=== PATIENT | male | born 1970 | race Caucasian/White ===

== ENCOUNTER 2023-03-04 01:20 | Inpatient (IN) | payer OTHER, SELFPAY ==
[2023-03-04] VITALS (25 sets, daily range): BP systolic 100–129; BP diastolic 57–94; PULSE 59–81; RESP 13–20; TEMP 35.9–36.6; O2SAT 94–100; BMI 30.8
--- NOTE | ~2023-03-04 | US_ITS ---
EXAMINATION:US venous doppler LE BI INDICATION:Positive Homans sign. TECHNIQUE: Multiple grayscale, color flow and Doppler images of the right and left lower extremity de ep venous systems were obtained and reviewed. COMPARISON:No prior studies for comparison. FINDINGS: The common femoral, superficial femoral and popliteal veins demonstrate normal respiratory variation, augmentation and compressibility. Color flow is also seen within the posterior tibial, pe roneal, greater saphenous and profunda veins. IMPRESSION: 1: No lower extremity deep venous thrombosis. Reviewed, dictated and finalized at location A.
--- NOTE | ~2023-03-04 | XR_ITS ---
XR chest 2V 03/04/2023 01:59 Indication: Left-sided chest pain Procedure: PA and lateral views of the chest Comparison: 10/27/2015 Findings: Heart size normal. No focal air space disease, pulmonary edema, pleural effusion or suspect ed pneumothorax. No acute osseous abnormality. Impression: 1: No acute cardiopulmonary disease. Reviewed, dictated and finalized at location A. Impression: 1: No acute cardiopulmonary disease.
--- NOTE | 2023-03-04 01:26 | ECG_ITS ---
Measurements Intervals [place] Rate: 78 P: 53 WI: 182 QRS: 29 QRSD: 117 T: -9 QT: 377 QTc: 430 Interpretive Statements SINUS RHYTHM MODERATE INTRAVENTRICULAR CONDUCTION DELAY [110+ ms QRS DURATION] NONSPECIFIC T-WAVE ABNORMALITY NO PREVIOUS ECG AVAILABLE FOR COMPARISON Electronically Signed On 03-04-2023 9:01:40 CDT by Kristi Valdovinos M.D.
[2023-03-04 02:03] LABS: Basophils Percent Auto 0.5 % (0.2-1.2); Eosinophils Absolute Auto 0.1 K/mm3 (0-0.3); Eosinophils Percent Auto 1.4 % (0-4.4); Hematocrit 41.9 % (42.0-52.0); Hemoglobin 14.3 g/dL (14.0-18.0); Immature Granulocyte Absolute 0.02 K/mm3 (0.00-0.031); Immature Granulocyte Percent A 0.2 % (0-0.5); Lymphocytes Absolute Auto 2.87 K/mm3 (0.9-3.2); Lymphocytes Percent Auto 34.5 % (18.3-44.2); Mean Corpuscular HGB Conc 34.1 g/dl (32-36); Mean Corpuscular Hemoglobin 31.3 pg (26-34); Mean Corpuscular Volume 91.7 fl (80-100); Mean Platelet Volume 9.6 fl (7.4-10.4); Monocytes Absolute Auto 0.9 K/mm3 (0.1-0.6); Monocytes Percent Auto 10.6 % (2.6-8.5); Neutrophils Absolute Auto 4.4 K/mm3 (1.3-6.7); Neutrophils Percent Auto 52.8 % (45.5-73.1); Platelet Count Result 245 k/mm3 (150-375); Red Blood Count 4.57 M/mm3 (4.6-6.20); Red Cell Distribution Width 13.5 % (11.5-14.5); White Blood Count 8.3 K/mm3 (4.5-10.0)
[2023-03-04 02:13] LABS: Prothrombin Time 13.7 Seconds (11.1-14.7)
[2023-03-04 02:14] LABS: Partial Thromboplastin Time 30.9 SECONDS (22.3-36.8)
[2023-03-04 02:19] LABS: Alanine Aminotransferase 31 U/L (6-50); Albumin Level 3.9 g/dL (3.5-5.1); Alkaline Phosphatase 52 U/L (38-126); Anion Gap 4 mmol/L (8-16); Aspartate Amino Transferase 27 U/L (17-59); Bilirubin,Total 0.3 mg/dL (0.2-1.3); Blood Urea Nitrogen 19 mg/dL (9-20); Calcium 8.8 mg/dL (8.4-10.2); Carbon Dioxide 29 mmol/L (22-30); Chloride 106 mmol/L (98-107); Estimated CRCL calculation 97 ml/min; Estimated Glomerular Filt Rate > 60; Glucose 100 mg/dL (65-110); Lipase 98 U/L (23-300); Potassium 3.5 mmol/L (3.4-5.0); Sodium 139 mmol/L (137-145)
--- NOTE | 2023-03-04 02:20 | PC.NURSE ---
This RN asked pt if he was in any pain to assess if this RN was to give nitro or morphine for pain per EDP. Pt stated he was not having pain and did not want to have any morphine or nitroglycerin. EDP notified and stated to still give the aspirin.
[2023-03-04 02:31] LABS: Troponin I < 0.012 ng/mL (0.000-0.034)
[2023-03-04] MEDS: ASPIRIN 81 MG CHEWABLE TABLET 324 MG PO (02:40)
--- NOTE | 2023-03-04 03:23 | ED.GENADULT ---
HPI - General Adult General Chief complaint: Chest Pain Stated complaint: Chest pain 2 nitros Time Seen by Provider: 03/04/23 01:35 History of Present Illness HPI narrative: Patient 52-year-old gentleman who presents the emergency department with chief complaint of chest pain. Patient reports that he has prior history of cardiac disease and had several stents placed about 10 years ago the patient reports that he has had a stress test in the last year that was negative patient reports this evening he woke up from sleep and was having midsternal chest pain that radiated to his left arm and up into his jaw patient states that it felt like a tightness and heaviness and felt similar to whenever he had his stents placed in the past the patient states he took 2 nitroglycerin that did help the discomfort the patient states that now his pain is almost completely resolved Related Data Home Medications Medication Instructions Recorded Confirmed carvedilol 3.125 mg tablet 3.125 mg PO Q12H 01/02/23 ezetimibe 10 mg tablet (Zetia) 10 mg PO DAILY 01/02/23 fenofibrate 50 mg capsule 50 mg PO DAILY 01/02/23 pregabalin 25 mg capsule (Lyrica) 25 mg PO BID 01/02/23 albuterol 90 mcg/actuation aerosol mcg inhalation 03/04/23 inhaler buprenorphine HCl 150 mcg buccal mcg buccal 03/04/23 film (Belbuca) lisinopril 10 mg tablet mg 03/04/23 Allergies Allergy/AdvReac Type Severity Reaction Status Date / Time cortisone Allergy Severe Anaphylactic Verified 03/04/23 01:30 Shock metronidazole [From Flagyl] Allergy Unknown Verified 03/04/23 01:30 Review of Systems Review of Systems: A 10 system review of systems was completed on the patient and is negative except for what is stated in the HPI. Nursing and ancillary documentation was reviewed. [facility] Family History Family History Mother Asthma Sibling Cancer Sibling Cancer Social History Social History Smoking status: Former smoker Smoking end date: 09/25/14 Alcohol intake: never Lack of Transportation: No Lack of Food: Never True Current Housing: I Have Housing Concerned About Future Housing: No Difficulty Paying Gas/Electric Bills: No Difficulty Paying for Meds: No Currently Unemployed: No Education: High School Diploma/GED Difficulty w/ Childcare or Family Care: No Exam Narrative: GENERAL: Well-appearing, well-nourished, and in no acute distress. HEAD: Normocephalic, atraumatic. EYES: PERRLA and EOMI. ENT: Nares clear, no rhinorrhea or epistaxis. Mucous membranes moist. NECK: Supple. CHEST: Clear to auscultation. No respiratory distress. HEART: Regular rate and rhythm. No murmur heard. Normal peripheral pulses. ABDOMEN: Soft, nontender, nondistended, normal active bowel sounds. EXTREMITIES: Normal range of motion. No edema. SKIN: Warm, dry, no rash. NEURO: No focal deficits. Alert and oriented x3. PSYCH: Normal mood and affect. Course Vital Signs Vital signs: Vital Signs Temperature 36.4 C L 03/04/23 01:26 Pulse Rate 79 03/04/23 01:26 Respiratory Rate 14 03/04/23 01:26 Blood Pressure 129/82 03/04/23 01:26 Pulse Oximetry 95 03/04/23 01:26 Oxygen Delivery Room Air 03/04/23 01:26 Temperature 36.4 C L 03/04/23 01:26 Pulse Rate 79 03/04/23 01:26 Respiratory Rate 14 03/04/23 01:26 Blood Pressure 129/82 03/04/23 01:26 Pulse Oximetry 95 03/04/23 01:26 Oxygen Delivery Room Air 03/04/23 01:26 Medical Decision Making [facility] Narrative Medical decision making narrative: Differential diagnosis includes ACS, unstable angina, stable angina. Pneumothorax, Chest x-ray showed no widened mediastinum and no evidence of pneumothorax EKG showed sinus rhythm rate of [address] elevation or ST depression there is nonspecific T wave abnormalities Laboratory studies were obtain
[2023-03-04 04:55] LABS: Troponin I 0.043 ng/mL (0.000-0.034)
[2023-03-04] MEDS: HEPARIN SODIUM 5,000 UNITS/ML VIAL 4000 UNITS IV PUSH ×2 (05:39→14:15)
[2023-03-04 05:49] LABS: Basophils Percent Auto 0.4 % (0.2-1.2); Eosinophils Absolute Auto 0.1 K/mm3 (0-0.3); Eosinophils Percent Auto 1.6 % (0-4.4); Hematocrit 42.8 % (42.0-52.0); Hemoglobin 14.4 g/dL (14.0-18.0); Immature Granulocyte Absolute 0.03 K/mm3 (0.00-0.031); Immature Granulocyte Percent A 0.4 % (0-0.5); Lymphocytes Absolute Auto 3.03 K/mm3 (0.9-3.2); Lymphocytes Percent Auto 36.6 % (18.3-44.2); Mean Corpuscular HGB Conc 33.6 g/dl (32-36); Mean Corpuscular Hemoglobin 31.2 pg (26-34); Mean Corpuscular Volume 92.8 fl (80-100); Mean Platelet Volume 9.3 fl (7.4-10.4); Monocytes Absolute Auto 0.6 K/mm3 (0.1-0.6); Monocytes Percent Auto 7.1 % (2.6-8.5); Neutrophils Absolute Auto 4.5 K/mm3 (1.3-6.7); Neutrophils Percent Auto 53.9 % (45.5-73.1); Platelet Count Result 263 k/mm3 (150-375); Red Blood Count 4.61 M/mm3 (4.6-6.20); Red Cell Distribution Width 13.5 % (11.5-14.5); White Blood Count 8.3 K/mm3 (4.5-10.0)
[2023-03-04] MEDS: HEPARIN SOD/D5W 100 UNITS/ML 25,000 UNITS/250 ML BAG 10 UNITS IV CONT (05:55)
[2023-03-04 05:57] LABS: Prothrombin Time 13.7 Seconds (11.1-14.7)
[2023-03-04 05:58] LABS: Partial Thromboplastin Time 30.8 SECONDS (22.3-36.8)
--- NOTE | 2023-03-04 06:17 | ADMIMU ---
This patient, Scott Sanchez, was admitted to IMU status, and placed in IMU Room 209-01. Patient/family oriented to hospital policies and general routines including ID bracelet, bed and alarms, visiting hours, pain management, procedures, bathroom and other care routines, personal items, smoking policy, room service/diet, and visiting hours. Valuables list has been completed. Information on how to activate the Rapid Response Team has been discussed. Patient/Family are encouraged to report perceived risks to care and to ask questions if they do not understand what they are told or what they should do.
--- NOTE | 2023-03-04 07:02 | ADMGEN ---
This patient, Scott Sanchez, was admitted to IMU Room 209-01 at 0616. Patient/family oriented to hospital policies and general routines including ID bracelet, bed and alarms, visiting hours, pain management, procedures, bathroom and other care routines, personal items, smoking policy, room service/diet, and visiting hours. Information on how to activate the Rapid Response Team has been discussed. Patient/Family are encouraged to report perceived risks to care and to ask questions if they do not understand what they are told or what they should do.
--- NOTE | 2023-03-04 07:39 | PM.IMHP ---
H&P: HPI History of Present Illness Date/Time: 03/04/23 07:39 Chief Complaint: Chest pain Narrative: 52yo male with CAD here for complaints of chest pain. In December 2014, patient had a late presentation of left sided chest pain radiating down left arm and was found to have a posterior wall PA. 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 He underwent PCI/balloon angioplasty and stenting of ostial/proximal LCX and OM1 branch using 2 JAYCOB. He returned 2 days later in staged intervention and had a RCA (near the ostial segment) JAYCOB placed. Both procedures with excellent angiographic results. Since that time, he has not had any further cardiac issues. He remains on ASA, Coreg, fenofibrate and zetia. He no longer sees Stopperer Assembler. Last chemical stress test was normal one year ago. He can not take statins due to muscle cramping. He was doing well until over the past year and more frequent over the past 1-2 months with chest pain. He has noted increase in frequency but not severity until this presentation. Pain occurs at rest. He was awoken from sleep this morning with 'crushing feeling' in his chest that radiated down the left arm associated with SOB and nausea. No diaphoresis. Symptoms lasted about 1 hour. He took 2 NTG and went by private vehicle to the ED. The pain was almost completely resolved by the time he arrived. The chest pain is similar in quality over the past 1-2 months but much more severe this morning. He has a chronic morning cough related to his COPD. He quit smoking 7 years ago after 20 packyear smoking history. He has HTN and HLD. His A1c is mildly elevated but not high enough to be diagnosed with DM. +Family hx with father having fatal PA at 57yo. Does mention that he has recent complaints of abdominal pain and constipation related to diverticulitis for the past week. Has never had colonoscopy. He is not on antibiotics. No fever or chills. Review of systems otherwise was negative except he has chronic tingling in his feet related to his chronic back issues. No hx of Kay's Palsy of stroke. In the ED, he was hemodynamically stable. His EKG reviewed personally showing normal sinus rhythm and nonspecific T wave changes. CXR was clear. Labs were unrevealing. Troponin climbed to 0.098. He was given ASA and started on heparin drip. 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 He quit tobacco 7 years ago after smoking 1 pack per day for 20 years. He drinks on average about 1 alcoholic drink per month. He uses medical marijuana about 10 mg at night. No history of drug use or IV drug use. Lives at home with his and 2 adult children. He is a full code. H
--- NOTE | 2023-03-04 07:56 | ECG_ITS ---
Measurements Intervals [place] Rate: 69 P: 50 CT: 189 QRS: 33 QRSD: 118 T: -32 QT: 379 QTc: 407 Interpretive Statements SINUS RHYTHM NONSPECIFIC T-WAVE ABNORMALITY COMPARED TO ECG 03/04/2023 01:27:58 NO SIGNIFICANT CHANGES Electronically Signed On 03-04-2023 14:06:18 CDT by Kristi Valdovinos M.D.
--- NOTE | 2023-03-04 07:58 | ECHO_ITS ---
Patient Info Name: Scott Sanchez Age: 52 years : 1970 Gender: Male Ht: 70 in Wt: 212 lbs BSA: 2.20 m2 HR: 81 bpm BP: 118 / 80 mmHg Heart Rhythm: Indeterminant Technical Quality: Fair Exam Date: 03/04/2023 12:00 PM Exam Location: [facility] Patient Status: Inpatient Admit Date: 03/04/2023 Staff Ordering Physician: Kristi Valdovinos MD Varnish Cooker: Amira Quijano RDCS Attending Provider: Kamila Graham DO Referring Physician: Aruna BRAVO; Exam Type: CA echo doppler color flow Study Info Indications - new fib Complete two-dimensional, color flow and Doppler transthoracic echocardiogram is performed. Summary 1. Complete two-dimensional, color flow and Doppler transthoracic echocardiogram is performed. 2. Left ventricle is not well visualized. Grossly normal size and thickness. Left ventricular function is mildly impaired, ejection fraction estimate 45-50%. Probable hypokinesis of the mid and distal posterolateral andrews. Grade 2 diastolic dysfunction is present. 3. Left atrial chamber dimension is moderately enlarged. 4. There is mild aortic root atherosclerosis. 5. No significant valve disease. 6. Pulmonary pressure could not be evaluated by this study. 7. Normal sinus rhythm. 8. Technically difficult study. Left Ventricle Left ventricular chamber dimension is normal. Left ventricular systolic function is mildly reduced, estimated at 45-50%. There is no increased left ventricular wall thickness. Left ventricular septal wall motion is normal. The left ventricular diastolic function is grade II diastolic dysfunction. Right Ventricle Right ventricular chamber dimension is normal. Right ventricular systolic function is normal. Left Atria Left atrial chamber dimension is moderately enlarged. Right Atria Right atrial chamber dimension is normal. Aortic Valve The aortic valve is trileaflet. There is no aortic valve sclerosis. There is no aortic valve stenosis. There is no aortic valve regurgitation. Pulmonic Valve The pulmonic valve is normal. There is no pulmonic valve stenosis. There is no pulmonic regurgitation. Mitral Valve The mitral valve has normal leaflets. There is no mitral valve stenosis. There is trace mitral valve regurgitation. Tricuspid Valve The tricuspid valve leaflets are normal. There is no significant tricuspid valve stenosis. There is trace tricuspid valve regurgitation. No pulmonary hypertension, estimated pulmonary arterial systolic pressure is 15 mmHg. Pericardium/Pleural The pericardium appears normal. There is no pericardial effusion. Inferior Vena Cava Normal inferior vena cava with >50% collapse upon inspiration consistent with Empty right atrial pressure, 10 mmHg. Aorta The aortic root size at the sinus of Valsalva is borderline dilated. The prox ascending aorta size is normal. There is mild aortic root atherosclerosis. Left Ventricular Outflow Tract Name Value Normal LVOT 2D LVOT Diameter 2.1 cm LVOT Doppler LVOT Peak Gradient 3 mmHg LVOT Mean Gradient 2 mmHg LVOT VTI 21 cm LVOT VTI/AV VTI Ratio
[2023-03-04 08:13] LABS: Troponin I 0.098 ng/mL (0.000-0.034)
[2023-03-04 08:16] LABS: Cholesterol 130 mg/dL (0-200); HDL Direct 31 mg/dL; Triglycerides 80 mg/dL (<150)
[2023-03-04 08:26] LABS: LDL Cholesterol Direct 86 mg/dL
--- NOTE | 2023-03-04 09:34 | PM.CNCAR ---
Assessment and Plan Assessment and plan (1) ACS (acute coronary syndrome): Code(s): I24.9 - Acute ischemic heart disease, unspecified Status: Acute Assessment and Plan: Patient with a history of CAD presents with unstable angina and non STEMI, slight elevation of troponins and minimal EKG changes. He has been stable on aspirin and heparin drip since admission. This is a high risk, life threatening diagnosis which is a major threat to health and life. --repeat EKG --echo --continue aspirin, heparin, carvedilol, lisinopril --TNG prn --Cardiac cath on Monday; can do over the w/e if unstable (2) CAD (coronary artery disease): Code(s): I25.10 - Atherosclerotic heart disease of [place] coronary artery without angina pectoris Status: Acute Assessment and Plan: History of CAD and stents. Developed heart disease at a young age, 44 years old, strong family history of CAD. Will need aggressive intervention to assure long life expectancy. --continue ezetimibe and aspirin --check lipids; may benefit from further therapy --continue secondary prevention (3) Hypertension: Code(s): I10 - Essential (primary) hypertension Status: Acute Assessment and Plan: At goal, continue carvedilol, lisinopril (4) Hyperlipidemia: Code(s): E78.5 - Hyperlipidemia, unspecified Status: Acute Assessment and Plan: Taking ezetimibe and fenofibrate. --checking lipids, may benefit from further therapy (5) Statin intolerance: Code(s): Z78.9 - Other specified health status Status: Acute Assessment and Plan: Has taken atorvastatin 40 mg with muscle cramps and tried a couple other statins, statin intolerant. History of Present Illness History of Present Illness Consult date/time: 03/04/23 09:34 Reason For Visit: Chest pain elevated troponin Narrative: Goldie Sanchez is a 52-year-old male whom I was asked to see at the request of Dr. Stewart and Dr. Doyle for my advice and opinion regarding his chest pain and non-STEMI, in consultation. Mr Sanchez has history of posterior STEMI status post 2 stents in the proximal circumflex and OM 1 on 01/12/2015 and staged PCI with a drug-eluting stent to the ostial RCA on 01/14/2015. He was last seen by Dr. Castillo on 03/16/2016 stable. He has a history of hypertension, dyslipidemia and is a former smoker. Borderline diabetes. Statin intolerant; has tried 3 statins with muscle cramping. The patient has had some recurrent anginal-type chest discomfort over the past 2 months, which would come and go, either at rest or with exertion, no provoking factors, reliably resolving with 1 nitroglycerin. He is still able to work out at the gym 2 or 3 times a week and do yd work with no exertional chest discomfort. Last night he woke up with more intense left-sided chest discomfort radiating to the left arm, associated with nausea and some shortness of breath. This felt very similar to his prior SC was not relieved after 2 nitroglycerin so he came to the emergency room. In the emergency room he was placed on aspirin and heparin and has been pain-free since. Review of Systems Constitutional: Constitutional: Denies fever(s) Comments: The patient has had intentional weight loss from 260 down to 212 lb. Eyes: Eyes: Reports blurry vision (Wears glasses) ENT: Reports epistaxis (Infrequent and minor) Cardiovascular: Cardiovascular: Reports chest pain, Reports pedal edema (Minimal and intermittent), Denies lightheadedness and Reports dyspnea (Associated with chest pain this morning) Respiratory: Respiratory: Denies chest congestion and Denies dyspnea Gastrointestinal: Gastrointestinal: Denies abdominal pain and Denies hematochezia Comments: History of diverticulitis Genitourinary: Genitourinary: Denies hematuria Musculoskeletal: Musculoskeletal: Reports no additional musculoskeletal complaints and Reports back pain (History of b
[2023-03-04] MEDS: PREGABALIN (*CRX) 25 MG CAPSULE PO (10:11)
[2023-03-04] MEDS: EZETIMIBE 10 MG TABLET PO (10:11)
[2023-03-04] MEDS: carvediloL 3.125 MG TABLET PO ×2 (10:11→17:52)
[2023-03-04] MEDS: lisinopriL 10 MG TABLET PO (10:12)
[2023-03-04] MEDS: FENOFIBRATE,MICRONIZED 48 MG TABLET PO (10:12)
[2023-03-04 11:56] LABS: Hemoglobin A1C 5.5 % (<5.7)
[2023-03-04 12:13] LABS: Partial Thromboplastin Time 34.9 SECONDS (22.3-36.8)
[2023-03-04 13:13] LABS: D Dimer 0.26 ug/mL (<0.48)
[2023-03-04] MEDS: HYDROcodone/acetaminophen (*CRX) 5-325 MG TABLET 1 TAB PO (17:52)
[2023-03-04] MEDS: polyethylene glycoL 3350 17 GM POWD.PACK PO (17:52)
[2023-03-04 20:30] LABS: Partial Thromboplastin Time 86.6 SECONDS (22.3-36.8)
[2023-03-05] VITALS (19 sets, daily range): BP systolic 100–134; BP diastolic 64–82; PULSE 62–87; RESP 20; TEMP 35.6–36.6; O2SAT 96–100
[2023-03-05 02:47] LABS: Basophils Percent Auto 0.4 % (0.2-1.2); Eosinophils Absolute Auto 0.1 K/mm3 (0-0.3); Eosinophils Percent Auto 1.1 % (0-4.4); Hematocrit 44.4 % (42.0-52.0); Hemoglobin 14.9 g/dL (14.0-18.0); Immature Granulocyte Absolute 0.01 K/mm3 (0.00-0.031); Immature Granulocyte Percent A 0.1 % (0-0.5); Lymphocytes Absolute Auto 3.84 K/mm3 (0.9-3.2); Lymphocytes Percent Auto 47.9 % (18.3-44.2); Mean Corpuscular HGB Conc 33.6 g/dl (32-36); Mean Corpuscular Hemoglobin 31.1 pg (26-34); Mean Corpuscular Volume 92.7 fl (80-100); Monocytes Absolute Auto 0.5 K/mm3 (0.1-0.6); Monocytes Percent Auto 6.1 % (2.6-8.5); Neutrophils Absolute Auto 3.6 K/mm3 (1.3-6.7); Neutrophils Percent Auto 44.4 % (45.5-73.1); Platelet Count Result 235 k/mm3 (150-375); Red Blood Count 4.79 M/mm3 (4.6-6.20); Red Cell Distribution Width 13.6 % (11.5-14.5)
[2023-03-05 03:01] LABS: Partial Thromboplastin Time 77.9 SECONDS (22.3-36.8)
[2023-03-05 03:03] LABS: Anion Gap 3 mmol/L (8-16); Blood Urea Nitrogen 18 mg/dL (9-20); Carbon Dioxide 29 mmol/L (22-30); Chloride 107 mmol/L (98-107); Estimated CRCL calculation 98 ml/min; Estimated Glomerular Filt Rate > 60; Glucose 84 mg/dL (65-110); Potassium 4.3 mmol/L (3.4-5.0); Sodium 139 mmol/L (137-145)
[2023-03-05] MEDS: HEPARIN SOD/D5W 100 UNITS/ML 25,000 UNITS/250 ML BAG 13 UNITS IV CONT ×2 (03:45→23:47)
[2023-03-05 08:08] LABS: Troponin I 0.058 ng/mL (0.000-0.034)
[2023-03-05] MEDS: lisinopriL 10 MG TABLET PO (09:25)
[2023-03-05] MEDS: HYDROcodone/acetaminophen (*CRX) 5-325 MG TABLET 1 TAB PO ×2 (09:25→19:55)
[2023-03-05] MEDS: carvediloL 3.125 MG TABLET PO ×2 (09:25→16:50)
[2023-03-05] MEDS: PREGABALIN (*CRX) 25 MG CAPSULE PO (09:25)
[2023-03-05] MEDS: EZETIMIBE 10 MG TABLET PO (09:26)
[2023-03-05] MEDS: FENOFIBRATE,MICRONIZED 48 MG TABLET PO (09:26)
[2023-03-05] MEDS: ASPIRIN 81 MG CHEWABLE TABLET PO (09:29)
--- NOTE | 2023-03-05 10:24 | PM.IMPN ---
Progress Note: A&P Assessment and Plan (1) ACS (acute coronary syndrome): Code(s): I24.9 - Acute ischemic heart disease, unspecified Status: Acute Assessment and Plan: Patient presents with CP at rest. No significant EKG changes but with mildly elevated Troponin. The chest pain characteristics appear similar to his earlier presentation in 2015. Continue heparin drip. Will continue aspirin and Coreg. Cardiology consulted and appreciate their input. Plan for cardiac cath tomorrow. (2) Elevated troponin: Code(s): R77.8 - Other specified abnormalities of plasma proteins Status: Acute Assessment and Plan: As above. LE venous dopplers negative for DVT and DDimer normal. Concerning for ischemic coronary disease. (3) LV dysfunction: Code(s): I51.9 - Heart disease, unspecified Status: Acute Assessment and Plan: Echo showing EF 45-50% with probable HK of the mid and distal posterolateral andrews with Grade II diastolic dysfunction. The Left ventriculogram in 2015 showed 'preserved overall LV systolic function, EF about 55%, inferior wall hypokinesis'. Probably old but EF is lower. Plan for LHC in the morning. (4) CAD (coronary artery disease): Code(s): I25.10 - Atherosclerotic heart disease of [place] coronary artery without angina pectoris Status: Acute Assessment and Plan: Patient has history of coronary disease. Treatment as above. A1c 5.5. (5) COPD (chronic obstructive pulmonary disease): Code(s): J44.9 - Chronic obstructive pulmonary disease, unspecified Status: Acute Assessment and Plan: No wheezing. Chest x-ray clear. He does have a chronic cough felt related to COPD. Follow clinically. (6) Hypertension: Code(s): I10 - Essential (primary) hypertension Status: Acute Assessment and Plan: Patient's blood pressure was reviewed on 03/05 Blood pressure remains well controlled. Will continue current medications. (7) Hyperlipidemia: Code(s): E78.5 - Hyperlipidemia, unspecified Status: Acute Assessment and Plan: Total cholesterol 130 with LDL 86 and HDL 31. Normal triglycerides. Normal LFTs. Continue Zetia and fenofibrate. He cannot tolerate statin therapy. Subjective Date/time seen: 03/05/23 10:24 Interval history: 52yo male with CAD, HTN and HLD here for complaints of chest pain. In December 2014, patient had a late presentation of left sided chest pain radiating down left arm and was found to have a posterior wall NH.? Feels well today. No problems overnight. No chest pain. No nausea or vomiting. He does have some mild right-sided abdominal pain but this is more chronic. No shortness of breath. Exam Narrative: AF 96.6 113/76 65 20 98% ra Gen - NARD Chest - lungs are clear to auscultation bilaterally. No wheezes or crackles. CV - RRR. S1-S2. Tele showing no significant dysrhythmias Abd - soft, NT/ND, +BS Ext - no pedal edema Psych - normal mood and affect Skin - warm and dry. Objective Data Vital Signs Vital Signs: Vital Signs - 24 hr 03/04/23 10:37 03/04/23 12:24 03/04/23 12:00 Temperature 97.0 F L Pulse Rate 81 62 Respiratory Rate 20 Blood Pressure 118/80 Pulse Oximetry 96 99 Oxygen Delivery Room Air 03/04/23 14:00 03/04/23 16:00 03/04/23 16:29 Temperature 96.8 F L Pulse Rate 64 63 67 Respiratory Rate 18 Blood Pressure 123/82 Pulse Oximetry 98 Oxygen Delivery 03/04/23 17:52 03/04/23 18:00 03/04/23 20:00 Temperature 97.6 F Pulse Rate 67 63 69 Respiratory Rate 20 Blood Pressure 121/63 Pulse Oximetry 98 Oxygen Delivery 03/04/23 23:15 03/04/23 20:00 03/04/23 20:00 Temperature 97.8 F Pulse Rate 78 68 Respiratory Rate 20 Blood Pressure 121/75 Pulse Oximetry 100 98 Oxygen Delivery Room Air 03/04/23 22:00 03/05/23 00:00 03/05/23 00:00 Temperature Pulse R
--- NOTE | 2023-03-05 11:45 | PM.PNCARD ---
Progress Note: A&P Assessment and Plan (1) ACS (acute coronary syndrome): Code(s): I24.9 - Acute ischemic heart disease, unspecified Status: Acute Assessment and Plan: Patient with a history of CAD presents with a history compatible with unstable angina and non STEMI, slight elevation of troponins and minimal EKG changes. He has been stable on aspirin and heparin drip since admission. Has had chest pain with 3 ER visits over the last 6 months; the chest pain is somewhat atypical in that it is nonexertional. --continue aspirin, heparin, carvedilol, lisinopril --TNG prn --Cardiac cath on Monday; can do over the w/e if unstable (2) CAD (coronary artery disease): Code(s): I25.10 - Atherosclerotic heart disease of [place] coronary artery without angina pectoris Status: Acute Assessment and Plan: History of CAD and stents. Developed heart disease at a young age, 44 years old, strong family history of CAD. Will need aggressive intervention to assure long life expectancy. --continue ezetimibe and aspirin --continue secondary prevention (3) Hypertension: Code(s): I10 - Essential (primary) hypertension Status: Acute Assessment and Plan: At goal, continue carvedilol, lisinopril (4) Hyperlipidemia: Code(s): E78.5 - Hyperlipidemia, unspecified Status: Acute Assessment and Plan: Taking ezetimibe and fenofibrate. --LDL cholesterol was 86. Not at goal. --will see if we can change fenofibrate to REpatha or Praluent on discharge (5) Statin intolerance: Code(s): Z78.9 - Other specified health status Status: Acute Assessment and Plan: Has taken atorvastatin 40 mg with muscle cramps and tried a couple other statins, statin intolerant. Subjective Date/time seen: 03/05/23 11:45 Interval history: FU for acute coronary syndrome and non-STEMI. Mr Sanchez has history of posterior STEMI status post 2 stents in the proximal circumflex and OM 1 on 01/12/2015 and staged PCI with a drug-eluting stent to the ostial RCA on 01/14/2015.? He was last seen by Dr. Castillo on 03/16/2016 stable.? He has a history of hypertension, dyslipidemia and is a former smoker.? Borderline diabetes.? Statin intolerant; has tried 3 statins with muscle cramping.? Date of service 03/05/2023: Has had some vague left arm pain but no significant chest discomfort. Remains on heparin drip. Peak troponin was 0.098. LDL cholesterol 86. Echo showed hypokinesis of the mid and distal posterolateral andrews, EF 45-50%, unclear if it is old or new. Follow-up EKG showed some minor nonspecific inferolateral ST changes, no change compared to admission. at bedside added to the history: Patient has been to the ER in [place] 3 times over the last 6 months with episodes of chest pain associated with shortness of breath, diaphoresis and anxiety. Last stress test was 1 year ago, normal per pt. Review of Systems Review of Systems: Some vague, intermittent left UE discomfort but no chest pain, shortness of breath, nausea, abdominal pain. Objective Data Vital Signs Vital Signs: Vital Signs - 24 hr 03/04/23 12:24 03/04/23 12:00 03/04/23 14:00 Temperature 97.0 F L Pulse Rate 81 62 64 Respiratory Rate 20 Blood Pressure 118/80 Pulse Oximetry 99 Oxygen Delivery 03/04/23 16:00 03/04/23 16:29 03/04/23 17:52 Temperature 96.8 F L Pulse Rate 63 67 67 Respiratory Rate 18 Blood Pressure 123/82 Pulse Oximetry 98 Oxygen Delivery 03/04/23 18:00 03/04/23 20:00 03/04/23 23:15 Temperature 97.6 F 97.8 F Pulse Rate 63 69 78 Respiratory Rate 20 20 Blood Pressure 121/63 121/75 Pulse Oximetry 98 100 Oxygen Delivery 03/04/23 20:00 03/04/23 20:00 03/04/23 22:00 Temperature Pulse Rate 68 59 L Respiratory Rate Blood Pressure Pulse Oximetry 98 Oxygen Delivery Room Air 03/05/23 00:00 03/05/23 00:00 03/05/23 02:00 Temperature
[2023-03-06] VITALS (28 sets, daily range): BP systolic 97–129; BP diastolic 54–94; PULSE 58–88; RESP 12–20; TEMP 35.9–36.6; O2SAT 94–100
[2023-03-06] MEDS: HEPARIN SODIUM 5,000 UNITS/ML VIAL 3500 UNITS IV PUSH (05:26)
[2023-03-06] MEDS: FENOFIBRATE,MICRONIZED 48 MG TABLET PO (09:15)
[2023-03-06] MEDS: lisinopriL 10 MG TABLET PO (09:15)
[2023-03-06] MEDS: EZETIMIBE 10 MG TABLET PO (09:15)
[2023-03-06] MEDS: carvediloL 3.125 MG TABLET PO ×2 (09:15→17:44)
[2023-03-06] MEDS: ASPIRIN 81 MG CHEWABLE TABLET PO (09:16)
--- NOTE | 2023-03-06 10:08 | WPDMODSED ---
Moderate Sedation Note-Pt Data Patient Data Diagnosis: Unstable angina Present Complaint: Exertional chest pain Procedure to be performed/Plan: Left heart catheterization Allergies Allergy/AdvReac Type Severity Reaction Status Date / Time cortisone Allergy Severe Anaphylactic Verified 03/04/23 01:30 Shock metronidazole [From Flagyl] Allergy Unknown Verified 03/04/23 01:30 Home Medications Medication Instructions Recorded Confirmed Type carvedilol 3.125 mg tablet 3.125 mg PO Q12H 01/02/23 03/04/23 History ezetimibe 10 mg tablet (Zetia) 10 mg PO DAILY 01/02/23 03/04/23 History fenofibrate 50 mg capsule 50 mg PO DAILY 01/02/23 03/04/23 History pregabalin 25 mg capsule (Lyrica) 25 mg PO DAILY 01/02/23 03/04/23 History albuterol 90 mcg/actuation aerosol 90 mcg inhalation PRN 03/04/23 03/04/23 History inhaler buprenorphine HCl 150 mcg buccal 250 mcg buccal BID 03/04/23 03/04/23 History film ([place]) lisinopril 10 mg tablet 10 mg DAILY 03/04/23 03/04/23 History Current Medications: Active Medications Acetaminophen (Acetaminophen 325 Mg Tablet) 650 mg PO Q6H PRN PRN Reason: Pain Rated 5 or Less Hydrocodone Bitart/Acetaminophen (Hydrocodone/Acetaminophen (*Crx) 5-325 Mg Tablet) 1 tab PO Q6H PRN PRN Reason: Pain Rated 6 or Greater Last Admin: 03/05/23 19:55 Dose: 1 tab Albuterol (Albuterol Sulfate (*Sp) Aerosol 1 Puff) 90 puff INHALATION PRN PRN PRN Reason: SOB/DYSPNEA Stop: 04/03/23 09:29 Aspirin (Aspirin 81 Mg Chewable Tablet) 81 mg PO DAILY@0800 [facility] Last Admin: 03/06/23 09:16 Dose: 81 mg Carvedilol (Carvedilol 3.125 Mg Tablet) 3.125 mg PO BIDWM [facility] Last Admin: 03/06/23 09:15 Dose: 3.125 mg Ezetimibe (Ezetimibe 10 Mg Tablet) 10 mg PO DAILY [facility] Last Admin: 03/06/23 09:15 Dose: 10 mg Fenofibrate (Fenofibrate,Micronized 48 Mg Tablet) 48 mg PO DAILY [facility] Stop: 04/03/23 09:29 Last Admin: 03/06/23 09:15 Dose: 48 mg Heparin Sodium (Porcine) (Heparin Sodium 5,000 Units/Ml Vial) 3,500 units IV PUSH PRN PRN PRN Reason: aPTT 55 - 70 seconds Last Admin: 03/06/23 05:26 Dose: 3,500 units Heparin Sodium (Porcine) (Heparin Sodium 5,000 Units/Ml Vial) 4,000 units IV PUSH PRN PRN PRN Reason: aPTT less than 55 seconds Last Admin: 03/04/23 14:15 Dose: 4,000 units Heparin Sodium/Dextrose (Heparin Sodium/D5w 100 Units/Ml) 25,000 units in 250 mls @ 15 mls/hr IV CONT .[id number] [facility]; Protocol Last Titration: 03/06/23 05:27 Dose: 1,500 units/hr, 15 mls/hr Sodium Chloride (Normal Saline Iv) 500 mls @ 100 mls/hr IV CONT .Q5H [facility] Lisinopril (Lisinopril 10 Mg Tablet) 10 mg PO DAILY [facility] Last Admin: 03/06/23 09:15 Dose: 10 mg Nitroglycerin (Nitroglycerin Sl 0.4 Mg Tablet) 0.4 mg SUBLINGUAL Q5MIN PRN PRN Reason: Chest Pain Nitroglycerin (Nitroglycerin Sl 0.4 Mg Tablet) 0.4 mg SUBLINGUAL Q5MIN PRN PRN Reason: Chest Pain Polyethylene Glycol (Polyethylene Glycol 3350 17 Gm Powd.Pack) 17 gm PO QAM [facility] Last Admin: 03/05/23 09:27 Dose: Not Given Pregabalin (Pregabalin (*Crx) 25 Mg Capsule) 25 mg PO DAILY [facility] Last Admin: 03/05/23 09:25 Dose: 25 mg Sedation/Anesthesia: No previous sedation/anesthesia problems (including family history). 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 He q
[2023-03-06 12:30] LABS: Partial Thromboplastin Time 109.1 SECONDS (22.3-36.8)
--- NOTE | 2023-03-06 13:21 | WPDCARDPROC ---
Cardiac Cath Procedure Note Date of procedure:: 03/06/23 Performing physician:: Fidencio Aparicio MD Indication:: coronary artery disease with chest pain and mild troponin elevation Brief clinical history:: this is a 52-year-old man known to have coronary artery disease who underwent PCI of the proximal circumflex and OM 2 branch as well as the proximal RCA in 2016. He has been lost to follow-up. The patient enters the hospital now with about a 2 month history of intermittent chestPain both with and without exertion with modestly elevated troponin. Procedure Procedure performed:: Left ventriculogram coronary angiogram Sedation/Medication given:: fentanyl 50 mg Versed 2 mg case start time 12:47 p.m. case end time 1:11 p.m. sedation provided by Kristina Davey RN, trained observer Access site:: right femoral artery Estimated blood loss:: 20 cc Procedure note:: patient was brought to the cardiac catheterization lab in the postabsorptive state where the right femoral triangle was prepared and draped in the normal fashion. Anesthesia was provided with 1% lidocaine infiltrated locally. Using the modified Seldinger technique the femoral artery was punctured and a 5 [place] vascular sheath was placed. After this I performed left heart catheterization using a 5 [place] angled pigtail catheter to measure left-sided hemodynamics and to inject LV g in the 30 degree STARR projection. Following this the left coronary artery was engaged and injected using a 5 [place] FL4 catheter. The right coronary was engaged and injected using a 5 [place] JR4 catheter. The cineangiograms were then reviewed and the case was terminated. Patient was taken to the holding area for manual sheath removal. Procedure was uncomplicated he left the offset label rewinder with no evidence of a groin hematoma. Findings:: hemodynamics: Central aortic pressure is 156 over 94 left ventricle 158 over 12 end-diastolic pressure 24. Left ventricle: The left ventricle is mildly enlarged there is moderate global systolic dysfunction identified ejection fraction globally is estimated at 35-40%. The left main coronary artery is medium in caliber and patent the left anterior descending is a medium caliber artery with mild atherosclerosis Proximal where there is approximately 30-40% proximal stenosis. The 2nd diagonal branch has a stenosis of 95% proximally. It is a very small artery. the circumflex is a medium caliber vessel the 1st OM branch takes off as a ramus intermedius and is free of significant disease. The proximal trunk of the circumflex has previously deployed stent material that is visible there is 90-95% complex looking stenosis in this segment. Distal to this there is another stent extending into the medium-sized 2nd OM branch that is nicely patent. The right coronary artery is dominant to the posterior circulation it is a RCA that bifurcates early in the 2nd portion of the vessel. A proximal near ostial stent of the right coronary is nicely patent. The branch that becomes the RPDA is free of significant disease. The branch that becomes the RPL has proximal 50% stenosis then there is 70% stenosis distally and 99% stenosis in the RPL branch at a a distal bifurcation. Both these vessels are quite small. There was JV 3 flow in the vessel despite the above described disease. Conclusion:: 1. Coronary artery disease with right coronary dominant circulation. 2. High-grade stenosis in the previously deployed circumflex stent proximally. 3. High-grade disease in the RPL branch of the RCA including in the distal segment of this vessel as well as further distally at a bifurcation where the vessel becomes quite small. Proximal RCA stent remains patent 4. mild angiographic disease in the LAD unchanged from 2016 also with high-grade stenosis in a 2nd diagonal branch also unchanged from 2016 5. mild LV enlargement with moderate global systolic dysf
--- NOTE | 2023-03-06 13:51 | PM.PNCARD ---
Progress Note: A&P Assessment and Plan (1) CAD (coronary artery disease): Code(s): I25.10 - Atherosclerotic heart disease of [place] coronary artery without angina pectoris Status: Acute (2) Chest pain: Qualifiers: Chest pain type: unspecified Qualified Code(s): R07.9 - Chest pain, unspecified Code(s): R07.9 - Chest pain, unspecified Status: Acute (3) Elevated troponin: Code(s): R77.8 - Other specified abnormalities of plasma proteins Status: Acute Plan this is a 52-year-old man with: Coronary artery disease with high-grade stenosis in the proximal circumflex which was stented in 2016 as well as progressive high-grade disease in the posterolateral RCA which is angiographically complex involving a distal bifurcation segment. Left ventricular systolic function has also declined. I will advance his lisinopril from 10-20 mg, resume dual anti-platelet therapy tomorrow as long as there is note hemorrhagic problems at the puncture site. We will plan for high-risk PCI by Dr. Castillo at [facility] as an outpatient. If he is clinically stable would anticipate discharge tomorrow Fidencio Aparicio MD [facility] Subjective Date/time seen: Date of service:03/06/23 13:51 Interval history: Follow-up visit in this 52-year-old man with: Ischemic heart disease with PCI to the proximal circumflex into the 2nd OM branch as well as of the ostial right coronary segment back in 2016. The patient enters the hospital with 2 month history of accelerating ischemic chest pain. Catheterization today demonstrates high-grade proximal circumflex InStent stenosis as well as significant high-grade disease in the RPL branch of the RCA at the distal bifurcation location. There is mild non flow-limiting LAD disease high-grade stenosis in the 2nd diagonal branch I do not believe is new. Left ventricular systolic function is declined from that in 2016. Patient is recovery area now following catheterization long discussion with the patient and his regarding the details of his angiograms today. Exam Const: General: comfortable and no acute distress HENMT: Mouth: Yes moist mucous membranes Eyes: Sclera: sclerae normal Pupils: Equal, round and reactive pupils present Neck: Neck: supple and no JVD Other: Normal carotid pulses Resp: Effort & Inspection: normal respiratory effort Auscultation: clear to auscultation bilaterally Cardio: Rate: regular rate Rhythm: regular rhythm Other: no significant murmur or gallop GI: GI Palp: Yes Soft to palpation Auscultation: normal bowel sounds Skin: General skin exam: normal color Neuro: Other: alert and oriented x3 Extrem: Other: no edema, good distal pulse Objective Data Vital Signs Vital Signs: Vital Signs - 24 hr 03/05/23 16:40 03/05/23 16:50 03/05/23 16:00 Temperature 35.6 C L Pulse Rate 62 62 Respiratory Rate 20 Blood Pressure 107/71 Pulse Oximetry 97 Oxygen Delivery Room Air 03/05/23 14:00 03/05/23 16:00 03/05/23 18:00 Temperature Pulse Rate 72 76 71 Respiratory Rate Blood Pressure Pulse Oximetry Oxygen Delivery 03/05/23 19:48 03/05/23 20:00 03/05/23 20:00 Temperature 36.5 C Pulse Rate 74 71 Respiratory Rate 20 Blood Pressure 100/64 Pulse Oximetry 98 98 Oxygen Delivery Room Air 03/05/23 20:25 03/05/23 23:00 03/05/23 22:00 Temperature 36.2 C L Pulse Rate 80 77 Respiratory Rate 20 Blood Pressure 134/73 Pulse Oximetry 99 98 Oxygen Delivery Room Air 03/06/23 00:00 03/06/23 00:00 03/06/23 04:00 Temperature 36.6 C Pulse Rate 72 72 Respiratory Rate 20 Blood Pressure 115/59 L Pulse Oximetry 98 99 Oxygen Delivery Room Air 03/06/23 02:00 03/06/23 04:00 03/06/23 04:00 Temperature Pulse Rate 68 58 L Respiratory Rate Blood Pressure Pulse Oximetry 99 Oxygen Delivery Room Air 03/06/23 0
[2023-03-06] MEDS: HYDROcodone/acetaminophen (*CRX) 5-325 MG TABLET 1 TAB PO ×2 (14:51→23:33)
[2023-03-06] MEDS: SODIUM CHLORIDE 0.9% IV 1,000 ML 125 ML IV CONT (15:00)
--- NOTE | 2023-03-06 15:01 | PM.IMPN ---
Progress Note: A&P Assessment and Plan (1) ACS (acute coronary syndrome): Code(s): I24.9 - Acute ischemic heart disease, unspecified Status: Acute Assessment and Plan: Patient presents with CP at rest. No significant EKG changes but with mildly elevated Troponin. The chest pain characteristics appear similar to his earlier presentation in 2015. He was started on heparin drip. LHC showing progressive high-grade (90-95%) stenosis in the proximal circumflex in the area of previous stent and high-grade disease in the RPL branch of the RCA. Plan for medical management and revascularization at a facility that is better equipped to handle complex cardiac lesions. Continue aspirin, Zetia and Coreg. Lisinopril advanced.Appreciate Cards input. (2) Elevated troponin: Code(s): R77.8 - Other specified abnormalities of plasma proteins Status: Acute Assessment and Plan: LE venous dopplers negative for DVT and DDimer normal. As above. Elevated Trop related to above (3) LV dysfunction: Code(s): I51.9 - Heart disease, unspecified Status: Acute Assessment and Plan: Echo showing EF 45-50% with probable HK of the mid and distal posterolateral andrews with Grade II diastolic dysfunction. The Left ventriculogram in 2015 showed 'preserved overall LV systolic function, EF about 55%, inferior wall hypokinesis'. EF during LHC was 35-40% with moderate global systolic dysfunction. Consider changing Lisinopril to Losartan with plans to convert to Entresto later. (4) CAD (coronary artery disease): Code(s): I25.10 - Atherosclerotic heart disease of [place] coronary artery without angina pectoris Status: Acute Assessment and Plan: Patient has history of coronary disease. Treatment as above. (5) COPD (chronic obstructive pulmonary disease): Code(s): J44.9 - Chronic obstructive pulmonary disease, unspecified Status: Acute Assessment and Plan: No wheezing. Chest x-ray clear. He does have a chronic cough felt related to COPD. Follow clinically. (6) Hypertension: Code(s): I10 - Essential (primary) hypertension Status: Acute Assessment and Plan: Patient's blood pressure was reviewed on 03/06 Blood pressure remains well controlled. Will continue to moniotr (7) Hyperlipidemia: Code(s): E78.5 - Hyperlipidemia, unspecified Status: Acute Assessment and Plan: Total cholesterol 130 with LDL 86 and HDL 31. Normal triglycerides. Normal LFTs. Continue Zetia and fenofibrate. He cannot tolerate statin therapy. Subjective Date/time seen: 03/06/23 15:01 Interval history: 52yo male with CAD, HTN and HLD here for complaints of chest pain. In December 2014, patient had a late presentation of left sided chest pain radiating down left arm and was found to have a posterior wall TN.? Back from [facility]. Feels well. No CP or SOB. Exam Narrative: AF 97.0 128/94 64 14 96% ra Gen - NARD Chest - lungs are clear anteriorally. No wheezes or crackles. CV - RRR. S1-S2 Abd - soft, NT/ND, +BS Ext - no pedal edema. right femoral dressing clean and dry Psych - normal mood and affect Skin - warm and dry. Objective Data Vital Signs Vital Signs: Vital Signs - 24 hr 03/05/23 16:40 03/05/23 16:50 03/05/23 16:00 Temperature 96.0 F L Pulse Rate 62 62 Respiratory Rate 20 Blood Pressure 107/71 Pulse Oximetry 97 Oxygen Delivery Room Air 03/05/23 16:00 03/05/23 18:00 03/05/23 19:48 Temperature 97.7 F Pulse Rate 76 71 74 Respiratory Rate 20 Blood Pressure 100/64 Pulse Oximetry 98 Oxygen Delivery 03/05/23 20:00 03/05/23 20:00 03/05/23 20:25 Temperature Pulse Rate 71 Respiratory Rate Blood Pressure Pulse Oximetry 98 99 Oxygen Delivery Room Air Room Air 03/05/23 23:00 03/05/23 22:00 03/06/23 00:00 Temperature 97.1 F L Pulse Rate 80 77 72 Respiratory Ra
[2023-03-06 15:11] LABS: Activated Clotting Time 137 SEC (74-137)
[2023-03-06] MEDS: NITROGLYCERIN SL 0.4 MG TABLET SUBLINGUAL (17:51)
[2023-03-07] VITALS (9 sets, daily range): BP systolic 114–135; BP diastolic 68–86; PULSE 54–79; RESP 18–20; TEMP 36.5–36.9; O2SAT 98–100
[2023-03-07 05:19] LABS: Anion Gap 5 mmol/L (8-16); Blood Urea Nitrogen 19 mg/dL (9-20); Calcium 8.4 mg/dL (8.4-10.2); Carbon Dioxide 27 mmol/L (22-30); Chloride 106 mmol/L (98-107); Estimated CRCL calculation 88 ml/min; Estimated Glomerular Filt Rate > 60; Glucose 114 mg/dL (65-110); Potassium 3.7 mmol/L (3.4-5.0); Sodium 138 mmol/L (137-145)
[2023-03-07] MEDS: ASPIRIN 81 MG CHEWABLE TABLET PO (09:05)
[2023-03-07] MEDS: FENOFIBRATE,MICRONIZED 48 MG TABLET PO (09:05)
[2023-03-07] MEDS: polyethylene glycoL 3350 17 GM POWD.PACK PO (09:05)
[2023-03-07] MEDS: carvediloL 3.125 MG TABLET PO (09:05)
[2023-03-07] MEDS: lisinopriL 20 MG TABLET PO (09:06)
[2023-03-07] MEDS: PREGABALIN (*CRX) 25 MG CAPSULE PO (09:06)
[2023-03-07] MEDS: EZETIMIBE 10 MG TABLET PO (09:06)
[2023-03-07] MEDS: HYDROcodone/acetaminophen (*CRX) 5-325 MG TABLET 1 TAB PO (09:09)
--- NOTE | 2023-03-07 10:28 | PM.PNCARD ---
Progress Note: A&P Assessment and Plan (1) CAD (coronary artery disease): Code(s): I25.10 - Atherosclerotic heart disease of [place] coronary artery without angina pectoris Status: Acute Assessment and Plan: Coronary artery disease with high-grade stenosis in the proximal circumflex which was stented in 2016 as well as progressive high-grade disease in the posterolateral RCA which is angiographically complex involving a distal bifurcation segment. Plan for high-risk PCI with Dr. Castillo at [facility] on 03/16. Resume DAPT today with Plavix (cannot take Brilinta, cost $625/mo) and ASA Will add anti-anginal therapy with Imdur 30mg daily SL nitro p.r.n. Reviewed activity restrictions and work restrictions with patient and at the bedside. Emphasized that he should limit physical activity as much as possible and not return to work until he is released by Dr. Castillo after LHC/PCI. Reviewed when to seek medical care for s/s NE Stable and appropriate for discharge home today. (2) Chest pain: Qualifiers: Chest pain type: unspecified Qualified Code(s): R07.9 - Chest pain, unspecified Code(s): R07.9 - Chest pain, unspecified Status: Acute Assessment and Plan: Secondary to above. (3) Elevated troponin: Code(s): R77.8 - Other specified abnormalities of plasma proteins Status: Acute (4) LV dysfunction: Code(s): I51.9 - Heart disease, unspecified Status: Acute Assessment and Plan: EF 45 - 50% from echo 03/04. Lisinopril advanced from 10 to 20mg daily Continue Coreg 3.125mg daily Subjective Date/time seen: 03/07/23 10:28 Cardiology follow up for CAD Interval history: He is feeling well this morning. Does still have intermittent chest pain which is not new or different. No shortness of breath or palpitations. No pain or bleeding at arterial insertion site. He is eager to go home. Review of Systems Constitutional: Constitutional: Denies fever(s) Eyes: Eyes: Reports blurry vision (Wears glasses) ENT: Reports epistaxis (Infrequent and minor) Cardiovascular: Cardiovascular: Reports chest pain, Reports pedal edema (Minimal and intermittent), Denies lightheadedness and Denies dyspnea Respiratory: Respiratory: Denies chest congestion and Denies dyspnea Gastrointestinal: Gastrointestinal: Denies abdominal pain and Denies hematochezia Genitourinary: Genitourinary: Denies hematuria Musculoskeletal: Musculoskeletal: Reports no additional musculoskeletal complaints and Reports back pain (History of back pain and surgeries) Integumentary/Breasts: Skin/Breast: Reports system reviewed and no additional complaints, except as docu Neurologic: Reports system reviewed and no additional complaints, except as documented, Denies behavioral changes and Denies confusion Psychiatric: Psychiatric: Denies behavioral changes and Denies confusion Exam Narrative: Pleasant gentleman sitting on the edge of bed in the IMU. Const: General: cooperative, healthy appearing, comfortable and no acute distress; No confusion Orientation/consciousness: oriented to person, patient oriented x3 and No confusion HENMT: Mouth: Yes moist mucous membranes Eyes: Sclera: sclerae normal Pupils: Equal, round and reactive pupils present EOM: EOMs intact bilaterally Neck: Neck: supple and no JVD Carotids: no bruits Other: Resp: Effort & Inspection: normal respiratory effort Auscultation: clear to auscultation bilaterally Cardio: Rate: regular rate Rhythm: regular rhythm Heart sounds: no murmurs GI: Inspection: normal to inspection Auscultation: normal bowel sounds Skin: General skin exam: normal color and no rashes or lesions noted Other: R groin arterial insertion site free from bleeding, hematoma, tenderness, redness, bruising. Neuro: General: oriented to person, patient oriented x3 and No confusion Cranial nerves: Yes Equal, round and reactive pupil
--- NOTE | 2023-03-07 12:31 | PM.DS ---
DS: Admitting Diagnosis Discharge Date 03/07/23 Admitting Diagnosis Chest pain DS: Discharge Diagnosis Discharge Diagnosis (1) ACS (acute coronary syndrome): Code(s): I24.9 - Acute ischemic heart disease, unspecified Status: Acute (2) Elevated troponin: Code(s): R77.8 - Other specified abnormalities of plasma proteins Status: Acute (3) LV dysfunction: Code(s): I51.9 - Heart disease, unspecified Status: Acute (4) CAD (coronary artery disease): Code(s): I25.10 - Atherosclerotic heart disease of [place] coronary artery without angina pectoris Status: Acute (5) COPD (chronic obstructive pulmonary disease): Code(s): J44.9 - Chronic obstructive pulmonary disease, unspecified Status: Acute (6) Hypertension: Code(s): I10 - Essential (primary) hypertension Status: Acute (7) Hyperlipidemia: Code(s): E78.5 - Hyperlipidemia, unspecified Status: Acute DS: Summary Hospital Course Reason for hospitalization: 52yo male with CAD, HTN and HLD here for complaints of chest pain. In December 2014, patient had a late presentation of left sided chest pain radiating down left arm and was found to have a posterior wall ID.?Please see H&P for details. Hospital Course: Patient presents with CP at rest. No significant EKG changes but with mildly elevated Troponin.? The chest pain characteristics appear similar to his earlier presentation in 2015.? He was started on heparin drip. LHC showing progressive high-grade (90-95%) stenosis in the proximal circumflex in the area of previous stent and high-grade disease in the RPL branch of the RCA. Plan for medical management and revascularization at a facility that is better equipped to handle complex cardiac lesions.?We continued aspirin, Zetia and Coreg.? Lisinopril was advanced. LE venous dopplers negative for DVT and DDimer normal. Echo showing EF 45-50% with probable HK of the mid and distal posterolateral andrews with Grade II diastolic dysfunction. The left ventriculogram in 2014 showed 'preserved overall LV systolic function, EF about 55%, inferior wall hypokinesis'. EF during [facility] now was 35-40% with moderate global systolic dysfunction. Total cholesterol 130 with LDL 86 and HDL 31.? Normal triglycerides.? Normal LFTs. We continued Zetia and fenofibrate.? He cannot tolerate statin therapy. He overall did well adn was able to be discharged on 03/07/23. Status at Discharge Cognitive/behavioral status at discharge: Stable Time Spent with Patient Time attestation: Total time spent providing and/or coordinating discharge services: 36 minutes Time spent: Greater than 30 minutes Exam Narrative: AF 97.7 117/74 76 20 98% ra Gen - NARD Chest - lungs are clear CV - RRR. S1-S2. Tele showing no significant dysrhythmias Abd - soft, NT/ND, +BS Ext - no pedal edema Psych - normal mood and affect Skin - warm and dry. DS: Data Data Completed and Pending Labs on day of discharge: Labs from last 24 hours 03/07/23 03/06/23 03/06/23 04:32 13:32 12:04 APTT 109.1 H Activ Coag Time Kaolin 137 Sodium 138 Potassium 3.7 Chloride 106 Carbon Dioxide 27 Anion Gap 5 L BUN 19 Creatinine 1.00 Estim Creat Clear Calc 88 Estimated GFR > 60 Glucose 114 H Calcium 8.4 Discharge Plan Discharge Attending physician on discharge: Braxton Doyle Consulting providers: Kristi Valdovinos Discharging Clinician: Braxton Doyle Anticipated Discharge Date/Time: 03/07/23 12:40 Patient Disposition: Home, Self-Care Activity: no straining Diet: heart healthy Discharge Instructions: [facility] [address]
== END 2023-03-07 14:07 | disposition home or self-care (01) | DRG 287 ==
LOC: ANHED 05:00 → ANHIMU 05:44
PROVIDERS: Internal Medicine Cardiovascular Disease; Specialist; Admitting Provider Internal Medicine; Emergency Provider Emergency Medicine; PCP Family Medicine; Visit Provider Internal Medicine
PROC: 4A023N7 Measurement of Cardiac Sampling and Pressure, Left Heart, Percutaneous Approach (ICD-10-PCS; CPT 93452; principal; 2023-03-06 11:30)
DX: T82.855A Stenosis of coronary artery stent, initial encounter (principal); I25.110 Atherosclerotic heart disease of native coronary artery with unstable angina pectoris; I10 Essential (primary) hypertension; I51.9 Heart disease, unspecified; E78.5 Hyperlipidemia, unspecified; J44.9 Chronic obstructive pulmonary disease, unspecified; Z87.891 Personal history of nicotine dependence; Z95.5 Presence of coronary angioplasty implant and graft; I25.2 Old myocardial infarction
CPT/HCPCS: 36415; 71046; 80048; 80053; 80061; 83036; 83690; 84484; 85025; 85380; 85610; 85730; 93005; 93306; 93458; 93970; 99285; A9270; C1769; C1887; C1894; J1644; J2250; J3010; J7030; J7040

== ENCOUNTER 2024-03-29 11:07 | Outpatient (CLI) | payer BC, SELFPAY ==
--- NOTE | ~2024-03-29 | CT_ITS ---
EXAMINATION: CTA abd aorta runoff DATE: 03/29/2024 11:52 INDICATION: Pulsatile abdominal mass. Mid abdominal pain. TECHNIQUE: Computed tomographic angiography (CTA) of the abdominal, pelvis, and both lower extremitie s was performed with 150 mL Omnipaque-350 intravenous contrast. Automated exposure control and iterat jewel reconstruction technique were employed. The dose-length product was 1779.06 mGy-cm. Maximum inten sity projection 3D-reconstructions of the arteries were created by the technologist on a separate wor kstation. COMPARISON: CT abdomen and pelvis 04/23/2015 FINDINGS: ABDOMINAL AORTA AND ITS BRANCHES: There is a penetrating atherosclerotic ulcer of infrarenal aorta. There is no significant stenosis of celiac axis. There is moderate stenosis of superior mesenteric artery. There is no significant steno sis of the renal arteries. There is total occlusion of proximal inferior mesenteric artery. PELVIC VASCULATURE: There is mild stenosis of the common iliac arteries, external iliac arteries, and internal iliac margarita kate. RIGHT LOWER EXTREMITY VASCULATURE: There is mild stenosis of right common femoral artery and right superficial femoral artery. There is no significant stenosis of the profunda femoris. There is mild stenosis of right popliteal artery. Th ere is no significant stenosis of the tibioperoneal trunk, peroneal artery, or the anterior or parachute manufacturing supervisor ior tibial arteries. LEFT LOWER EXTREMITY VASCULATURE: There is mild stenosis of left common femoral artery, superficial femoral artery, profunda femoris, p opliteal artery, and tibioperoneal trunk. There is no significant stenosis of the peroneal artery or anterior or posterior tibial arteries. ADDITIONAL FINDINGS: The visualized portions of the lung bases demonstrate mild atelectasis. There is a 9 mm nodule in lef t lower lobe that measured 5 mm on 04/23/2015. The heart size is normal. No pericardial effusion. The liver and spleen are normal. There are changes of cholecystectomy. The pancreas, adrenal glands, and right kidney are normal. There is a 5 mm cyst in left kidney. There is diverticulosis of the colon wi thout evidence of diverticulitis. There are no dilated loops of bowel. The appendix is normal. There are no pathologically enlarged lymph nodes. There is no free intraperitoneal fluid. There is severe l umbar spondylosis. There is a chronic compression fracture of L2. IMPRESSION: 1. Moderate stenosis of superior mesenteric artery. Total occlusion of proximal inferior mesenteric artery. 2. Bilateral three-vessel runoff. 3. Penetrating atherosclerotic ulcer of infrarenal abdominal aorta. 4. 9 mm pulmonary nodule, increased from 5 mm on 04/23/2015. This finding may be benign or malignant. Consider noncontrast low-dose chest CT in 3 months. Reviewed, dictated and finalized at location A. IMPRESSION: 1. Moderate stenosis of superior mesenteric artery. Total occlusion of proxima l inferior mesenteric artery. 2. Bilateral three-vessel runoff. 3. Penetrating atherosclerotic ulcer of infrarenal abdominal aorta. 4. 9 mm pulmonary nodule, increased from 5 mm on 04/23/2015. This finding may be benign or malignant. Consider noncontrast low-dose chest CT in 3 months.
[2024-03-29 11:29] LABS: Estimated Glomerular Filt Rate > 60
== END 2024-03-29 11:08 ==
LOC: MICIMG 11:08
PROVIDERS: PCP Family Medicine; Visit Provider Family Medicine
DX: R19.00 Intra-abdominal and pelvic swelling, mass and lump, unspecified site (principal)
CPT/HCPCS: 75635; Q9967

== ENCOUNTER 2024-04-15 15:27 | Outpatient (CLI) | payer BC, SELFPAY ==
[2024-04-15 15:53] LABS: Basophils Percent Auto 0.5 % (0.2-1.2); Eosinophils Absolute Auto 0.1 K/mm3 (0-0.3); Eosinophils Percent Auto 1.9 % (0-4.4); Hematocrit 49.2 % (42.0-52.0); Hemoglobin 16.4 g/dL (14.0-18.0); Immature Granulocyte Absolute 0.03 K/mm3 (0.00-0.031); Immature Granulocyte Percent A 0.4 % (0-0.5); Lymphocytes Percent Auto 34.1 % (18.3-44.2); Mean Corpuscular HGB Conc 33.3 g/dl (32-36); Mean Corpuscular Hemoglobin 31.1 pg (26-34); Mean Corpuscular Volume 93.2 fl (80-100); Mean Platelet Volume 9.7 fl (7.4-10.4); Monocytes Absolute Auto 0.8 K/mm3 (0.1-0.6); Monocytes Percent Auto 10.2 % (2.6-8.5); Neutrophils Absolute Auto 3.9 K/mm3 (1.3-6.7); Neutrophils Percent Auto 52.9 % (45.5-73.1); Platelet Count Result 241 k/mm3 (150-375); Red Blood Count 5.28 M/mm3 (4.6-6.20); Red Cell Distribution Width 13.4 % (11.5-14.5); White Blood Count 7.3 K/mm3 (4.5-10.0)
[2024-04-15 15:55] LABS: Alanine Aminotransferase 31 U/L (6-50); Albumin Level 4.5 g/dL (3.5-5.1); Alkaline Phosphatase 76 U/L (38-126); Anion Gap 12 mmol/L (4-12); Aspartate Amino Transferase 27 U/L (17-59); Bilirubin,Total 0.5 mg/dL (0.2-1.3); Blood Urea Nitrogen 18 mg/dL (9-20); Carbon Dioxide 23 mmol/L (22-30); Chloride 103 mmol/L (98-107); Estimated Glomerular Filt Rate > 60; Glucose 95 mg/dL (65-110); Potassium 4.6 mmol/L (3.4-5.0); Sodium 138 mmol/L (137-145)
== END 2024-04-15 15:28 | disposition home or self-care (01) ==
LOC: ANHLAB 15:29
PROVIDERS: PCP Family Medicine; Visit Provider Internal Medicine Cardiovascular Disease
DX: I73.9 Peripheral vascular disease, unspecified (principal)
CPT/HCPCS: 36415; 80053; 85025

== ENCOUNTER 2024-09-19 19:20 | Inpatient (IN) | payer BC, SELFPAY ==
--- NOTE | ~2024-09-19 | US_ITS ---
EXAMINATION: US abdomen limited DATE: 09/20/2024 07:46 INDICATION: Abdominal pain. Acute cholecystitis. TECHNIQUE: Multiple grayscale and Doppler ultrasound images of the abdomen were obtained. COMPARISON: CT abdomen and pelvis 09/20/2024 FINDINGS: The visualized portion of the body of the pancreas is normal. The liver is normal without f ocal lesion. There is normal flow in main portal vein. The gallbladder is normal in size and contains gallstones. Gallbladder wall thickening is noted. There is no sonographic Peres sign. The common du ct is normal and measures 3 mm. IMPRESSION: 1. Normal-sized gallbladder with gallstones and gallbladder wall thickening, but no sonographic Danika y's sign. These findings are indeterminate for acute cholecystitis. Consider hepatobiliary scintigrap hy. Reviewed, dictated and finalized at location A. NG ASSEMBLER SUPERVISOR IMPRESSION: 1. Normal-sized gallbladder with gallstones and gallbladder wall thickening, bu t no sonographic Peres's sign. These findings are indeterminate for acute chol ecystitis. Consider hepatobiliary scintigraphy.
--- NOTE | ~2024-09-19 | XR_ITS ---
EXAMINATION: XR chest 2V Exam Date/Time: 09/19/2024 20:30 CNS HISTORY: chest pain AND ABDOMINAL PAIN SINCE THIS AM Comparison: 03/04/2023. RESULT: Lines, tubes, and devices: Intact sternotomy wires and sternal fixation plates. Mediastinal surgical clips. Lungs and pleura: Low volumes with crowding. Streaky scar/atelectasis in the left lower lung. Cardiomediastinal silhouette: Stable. Other: No acute osseous or upper abdominal finding. IMPRESSION: No acute cardiopulmonary process. Reviewed, dictated and finalized at location K.
--- NOTE | ~2024-09-19 | NM_ITS ---
EXAMINATION: NM hepatobiliary wo pharm DATE: 09/23/2024 13:20 INDICATION: Epigastric pain. Cholelithiasis. COMPARISON: CT dated 09/20/2024 TECHNIQUE: I 0.3 mCi Tc-99m mebrofenin (Choletec) was administered intravenously. Scintigraphic imag es of the abdomen were obtained for one hour. Additional 4 hour delayed anterior and right lateral sc intigrams were obtained. FINDINGS: There is normal clearance of radiotracer from the blood pool. There is homogeneous tracer uptake by t he liver. Activity progresses to the common bile duct by 10 minutes and into the duodenum by 15 marva britany. No evident activity identified within the gallbladder either on the initial hour time course or on the 4 hour delayed images which would be consistent with acute cholecystitis. IMPRESSION: 1. No gallbladder activity which could be consistent with acute cholecystitis. Reviewed, dictated and finalized at location B. SQL SERVER DEVELOPER
--- NOTE | ~2024-09-19 | CT_ITS ---
EXAMINATION: CTA chest abdomen pelvis DATE: 09/20/2024 05:48 INDICATION: Abdominal aortic aneurysm. TECHNIQUE: Computed tomographic angiography (CTA) of the chest, abdomen, and pelvis was performed wit h 100 mL Omnipaque-350 intravenous contrast. Automated exposure control and iterative reconstruction technique were employed. The dose-length product was 1554.23 mGy-cm. Maximum intensity projection 3D- reconstructions of the aorta and other arteries were constructed by the technologist on a separate wo rkstation. COMPARISON: CT abdomen and pelvis 03/29/2024, 04/23/2015 FINDINGS: CHEST CTA: There is mild atelectasis bilaterally. There is a 10 mm nodule in left lung lower lobe. No pleural ef fusion. The heart size is normal. There are coronary artery calcifications. There are changes of sundar nary artery bypass grafting. No pericardial effusion. There is mild aortic atherosclerosis. No aneury sm or dissection. There is moderate thoracic spondylosis. There is mild chronic anterior wedging of m ultiple vertebral bodies. ABDOMEN AND PELVIS CTA: The liver and gallbladder are normal. There are gallstones in the gallbladder and cystic duct. The ga llbladder is normal in size. There is fat stranding around the gallbladder. The pancreas, adrenal gla nds, and right kidney are normal. There is a 6 mm cyst in left kidney. There is diverticulosis of the colon without evidence of diverticulitis. There are no dilated loops of bowel. The appendix is arnel l. There is a penetrating atherosclerotic ulcer of infrarenal aorta. There is no significant stenosis of celiac axis. There is moderate stenosis of superior mesenteric artery. There is no significant st enosis of the renal arteries. There is severe stenosis of inferior mesenteric artery. There are no pa thologically enlarged lymph nodes. There is no free intraperitoneal fluid. There is severe lumbar spo ndylosis. There is a chronic compression fracture of L3. IMPRESSION: 1. Normal-sized gallbladder with gallstones and surrounding fat stranding suspicious for acute cholec ystitis. 2. 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 3. 10 mm nodule in left lung lower lobe that measured 5 mm on 04/23/2015. This finding may be benign o r malignant. Consider CT-guided biopsy. Reviewed, dictated and finalized at location A. TESTER IMPRESSION: 1. Normal-sized gallbladder with gallstones and surrounding fat stranding suspi cious for acute cholecystitis. 2. 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 3. 10 mm nodule in left lung lower lobe that measured 5 mm on 04/23/2015. This f inding may be benign or malignant. Consider CT-guided biopsy.
[2024-09-19 19:22] VITALS: BP 157/109; PULSE 96; RESP 18; TEMP 36.4; O2SAT 95
--- NOTE | 2024-09-19 19:50 | ECG_ITS ---
Test Date: 2024-09-19 19:47:30 Measurements Intervals [place] Rate: 97 P: 46 [place]: 223 QRS: 51 QRSD: 94 T: 53 QT: 322 QTc: 410 Interpretive Statements SINUS RHYTHM WITH FIRST DEGREE AV BLOCK LOW QRS VOLTAGE IN PRECORDIAL LEADS [QRS DEFLECTION < 1.0 mV IN CHEST LEADS] ABNORMAL ECG Electronically Signed On 09-20-2024 17:08:57 INFIRMARY ATTENDANT by Yogesh Pineda M.D.
[2024-09-19 20:14] LABS: Basophils Percent Auto 0.4 % (0.2-1.2); Eosinophils Absolute Auto 0.1 K/mm3 (0-0.3); Eosinophils Percent Auto 1.3 % (0-4.4); Hematocrit 51.7 % (42.0-52.0); Hemoglobin 17.8 g/dL (14.0-18.0); Immature Granulocyte Absolute 0.02 K/mm3 (0.00-0.031); Immature Granulocyte Percent A 0.2 % (0-0.5); Lymphocytes Absolute Auto 1.68 K/mm3 (0.9-3.2); Lymphocytes Percent Auto 19.6 % (18.3-44.2); Mean Corpuscular HGB Conc 34.4 g/dl (32-36); Mean Corpuscular Hemoglobin 31.6 pg (26-34); Mean Corpuscular Volume 91.8 fl (80-100); Mean Platelet Volume 9.4 fl (7.4-10.4); Monocytes Absolute Auto 0.6 K/mm3 (0.1-0.6); Monocytes Percent Auto 6.9 % (2.6-8.5); Neutrophils Absolute Auto 6.1 K/mm3 (1.3-6.7); Neutrophils Percent Auto 71.6 % (45.5-73.1); Platelet Count Result 191 k/mm3 (150-375); Red Blood Count 5.63 M/mm3 (4.6-6.20); Red Cell Distribution Width 13.6 % (11.5-14.5); White Blood Count 8.6 K/mm3 (4.5-10.0)
[2024-09-19 20:17] LABS: Alanine Aminotransferase 56 U/L (6-50); Albumin Level 4.7 g/dL (3.5-5.1); Alkaline Phosphatase 79 U/L (38-126); Anion Gap 4 mmol/L (4-12); Aspartate Amino Transferase 39 U/L (17-59); Bilirubin,Total 0.6 mg/dL (0.2-1.3); Blood Urea Nitrogen 17 mg/dL (9-20); Carbon Dioxide 30 mmol/L (22-30); Chloride 103 mmol/L (98-107); Estimated CRCL calculation 89 ml/min; Estimated Glomerular Filt Rate > 60; Glucose 115 mg/dL (65-110); Lipase 109 U/L (23-300); Potassium 4.4 mmol/L (3.4-5.0); Sodium 137 mmol/L (137-145)
[2024-09-19 20:19] LABS: Prothrombin Time 13.6 Seconds (11.1-14.7)
[2024-09-19 20:20] LABS: Partial Thromboplastin Time 32.2 Seconds (22.3-36.8)
[2024-09-19 20:27] LABS: Troponin I 0.015 ng/mL (0.000-0.034)
--- NOTE | 2024-09-19 23:17 | ECG_ITS ---
Test Date: 2024-09-20 05:07:51 Measurements Intervals [place] Rate: 125 P: 50 [place]: 154 QRS: 44 QRSD: 109 T: 67 QT: 320 QTc: 462 Interpretive Statements SINUS TACHYCARDIA INCOMPLETE RIGHT BUNDLE BRANCH BLOCK [90+ ms QRS DURATION, TERMINAL R IN V1/V2, 40+ ms S IN I/aVL/V4/V5/V6] CANNOT RULE OUT ANTEROSEPTAL PR ABNORMAL ECG Electronically Signed On 09-20-2024 17:18:20 CYTOTECHNOLOGIST/HISTOTECHNOLOGIST by Yogesh Pineda M.D.
[2024-09-20] VITALS (25 sets, daily range): BP systolic 105–140; BP diastolic 61–104; PULSE 95–130; RESP 12–22; TEMP 36.7–37.2; O2SAT 20–98; BMI 33.5
[2024-09-20 02:54] LABS: Troponin I 0.202 ng/mL (0.000-0.034)
--- NOTE | 2024-09-20 04:46 | ECG_ITS ---
Test Date: 2024-09-20 02:02:46 Measurements Intervals [place] Rate: 103 P: 15 [place]: 160 QRS: 41 QRSD: 97 T: 31 QT: 333 QTc: 437 Interpretive Statements SINUS TACHYCARDIA LOW QRS VOLTAGE IN PRECORDIAL LEADS [QRS DEFLECTION < 1.0 mV IN CHEST LEADS] INTRAVENTRICULAR CONDUCTION DELAY ABNORMAL ECG Electronically Signed On 09-20-2024 17:17:06 STONE CLEANER by Yogesh Pineda M.D.
[2024-09-20] MEDS: ONDANSETRON INJ 4 MG/2 ML VIAL IV PUSH ×2 (04:51→14:26)
--- NOTE | 2024-09-20 06:18 | ED_ITS ---
HPI - General Adult General Chief complaint: Chest Pain Stated complaint: ABDOMINAL AND CHEST PAIN Time Seen by Provider: 09/20/24 05:22 History of Present Illness HPI narrative: Patient is a 53-year-old gentleman presents emergency department with chief complaint of chest and abdominal pain. Patient reports that around 11:00 a.m. this morning started having discomfort reports that has been progressively worse throughout the day patient does report that he has prior history of a abdominal aortic aneurysm the patient reports that the pain is not improved by anything patient does report that he has prior history of cardiac disease Related Data Home Medications ?Medication ?Instructions ?Recorded ?Confirmed ?Last Taken ?Type carvedilol 3.125 mg tablet 3.125 mg PO Q12H 01/02/23 03/04/23 03/03/23 12:00 History ezetimibe 10 mg tablet (Zetia) 10 mg PO DAILY 01/02/23 03/04/23 03/03/23 12:00 History fenofibrate 50 mg capsule 50 mg PO DAILY 01/02/23 03/04/23 03/03/23 12:00 History pregabalin 25 mg capsule (Lyrica) 25 mg PO DAILY 01/02/23 03/04/23 03/04/23 00:00 History albuterol 90 mcg/actuation aerosol 90 mcg inhalation PRN 03/04/23 03/04/23 Unknown History inhaler buprenorphine HCl 150 mcg buccal 250 mcg buccal BID 03/04/23 03/04/23 Unknown History film (Belbuca) lisinopril 10 mg tablet 10 mg DAILY 03/04/23 03/04/23 03/03/23 12:00 History Allergies Allergy/AdvReac Type Severity Reaction Status Date / Time cortisone Allergy Severe Anaphylactic Verified 09/19/24 19:22 Shock metronidazole (From Flagyl) Allergy Unknown Verified 09/19/24 19:22 Review of Systems 2 Review of Systems: A 10 system review of systems was completed on the patient and is negative except for what is stated in the HPI. Nursing and ancillary documentation was reviewed. 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 He quit tobacco 7 years ago after smoking 1 pack per day for 20 years. He drinks on average about 1 alcoholic drink per month. He uses medical marijuana about 10 mg at night. No history of drug use or IV drug use. Lives at home with his and 2 adult children. He is a full code. He nominates his to be the individual would make medical decisions for him if he is unable. Smoking status: Former smoker Smoking end date: 09/25/14 Alcohol intake: never Lack of Transportation: No Lack of Food: Never True Current Housing: I Have Housing Concerned About Future Housing: No Difficulty Paying Gas/Electric Bills: No Difficulty Paying for Meds: No Currently Unemployed: No Education: Trade/Vocational Certificate Difficulty w/ Childcare or Family Care: No Spiritual care concerns: No Exam 2 Narrative: GENERAL: Well-appearing, well-nourished, and in no acute distress. HEAD: Normocephalic, atraumatic. EYES: PERRLA and EOMI. ENT: Nares clear, no rhinorrhea or epistaxis. Mucous membranes moist. NECK: Supple. CHEST: Clear to auscultation. No respiratory distress. HEART: Regular rate and rhythm. No murmur heard. Normal peripheral pulses. ABDOMEN: Soft, nontender, nondistended, normal active bowel sounds. EXTREMITIES: Normal range of motion. No edema. SKIN: Warm, dry, no rash. NEURO: No focal deficits. Alert and oriented x3. PSYCH: Normal mood and affect. Course Vital Signs Vital signs: Vital Signs Temperature 36.4 C 09/19/24 19:22 Pulse Rate 96 09/19/24 19:22 Respiratory Rate 18 09/19/24 19:22 Blood Pressure 157/109 H 09/19/24 19:22 Pulse Oximetry 95 09/19/24 19:22 Oxygen Delivery Room Air 09/19/24 19:22 Temperature 36.4 C 09/19/24 19:22 Pulse Rate 107 H 09/20/24 02:06 Respiratory Rate 15 09/20/24 02:06 Blood Pressure 157/109 H 09/19/24 19:22 Pulse Oximetry 96 09/20/24 02:06 Oxygen Delivery Room Air 09/20/24 02:05 Medical Decision Making MDM Narrative Medical decision making narrative: Differential diagnosis includes ACS, cholecystitis, abdominal aortic aneurysm, dissection Laboratory studies were obtained on the patient which showed a troponin initially of 0.015 repeat troponin is 0.202. CT chest abdomen pelvis showed 1. Normal-sized gallbladder with gallstones and surrounding fat stranding suspicious for acute cholecystitis. 2. 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 3. 10 mm nodule in left lung lower lobe that measured 5 mm on 04/23/2015. This finding may be benign or malignant. Consider CT-guided biopsy. Vital Signs Vital Signs: Vital Signs Temperature 36.4 C 09/19/24 19:22 Pulse Rate 96 09/19/24 19:22 Respiratory Rate 18 09/19/24 19:22 Blood Pressure 157/109 H 09/19/24 19:22 Pulse Oximetry 95 09/19/24 19:22 Oxygen Delivery Room Air 09/19/24 19:22 Temperature 36.4 C 09/19/24 19:22 Pulse Rate 107 H 09/20/24 02:06 Respiratory Rate 15 09/20/24 02:06 Blood Pressure 157/109 H 09/19/24 19:22 Pulse Oximetry 96 09/20/24 02:06 Oxygen Delivery Room Air 09/20/24 02:05 Lab Data 09/19/24 19:57 09/19/24 19:57 Labs: Lab Results 09/19/24 09/20/24 09/20/24 Range/Units 19:57 02:20 06:14 WBC 8.6 (4.5-10.0) K/mm3 RBC 5.63 (4.6-6.20) M/mm3 Hgb 17.8 (14.0-18.0) g/dL Hct 51.7 (42.0-52.0) % MCV 91.8 (80-100) fl MCH 31.6 (26-34) pg MCHC 34.4 (32-36) g/dl RDW 13.6 (11.5-14.5) % Plt Count 191 (150-375) k/mm3 MPV 9.4 (7.4-10.4) fl Immature Gran % (Auto) 0.2 (0-0.5) % Neut % (Auto) 71.6 (45.5-73.1) % Lymph % (Auto) 19.6 (18.3-44.2) % [place] % (Auto) 6.9 (2.6-8.5) % Eos % (Auto) 1.3 (0-4.4) % Baso % (Auto) 0.4 (0.2-1.2) % Lymph # (Auto) 1.68 (0.9-3.2) K/mm3 [place] # (Auto) 0.6 (0.1-0.6) K/mm3 Eos # (Auto) 0.1 (0-0.3) K/mm3 Baso # (Auto) 0.0 (0.0-0.1) K/mm3 Abs Immat Gran (auto) 0.02 (0.00-0.031) K/mm3 Absolute Neuts (auto) 6.1 (1.3-6.7) K/mm3 Absolute Nucleated RBC 0.000 (0.0-0.012) K/mm3 Nucleated RBC % 0.0 (0.0-0.2) % PT 13.6 (11.1-14.7) Seconds INR 1.0 APTT 32.2 (22.3-36.8) Seconds Sodium 137 (137-145) mmol/L Potassium 4.4 (3.4-5.0) mmol/L Chloride 103 (98-107) mmol/L Carbon Dioxide 30 (22-30) mmol/L Anion Gap 4 (4-12) mmol/L BUN 17 (9-20) mg/dL Creatinine 1.00 (0.7-1.3) mg/dL Estim Creat Clear Calc 89 ml/min Estimated GFR > 60 (59 - ) Glucose 115 H (65-110) mg/dL Calcium 10.0 (8.4-10.2) mg/dL Total Bilirubin 0.6 (0.2-1.3) mg/dL AST 39 (17-59) U/L ALT 56 H (6-50) U/L Alkaline Phosphatase 79 (38-126) U/L Troponin I 0.015 0.202 H* D Pending (0.000-0.034) ng/mL Total Protein 8.0 (6.3-8.2) g/dL Albumin 4.7 (3.5-5.1) g/dL Lipase 109 (23-300) U/L Discharge Plan Discharge Clinical Impression: Elevated troponin Chest pain Qualifiers: Chest pain type: unspecified Qualified Code(s): R07.9 - Chest pain, unspecified Patient Disposition: Still a Patient Condition: Stable Patient Language: [place] Prescriptions: No Action carvedilol 3.125 mg tablet 3.125 mg PO Q12H Rx Instructions: must administer with a meal/food fenofibrate 50 mg capsule 50 mg PO DAILY pregabalin [Lyrica] 25 mg capsule 25 mg PO DAILY Patient Comments: patient takes PM medications at 0000 and AM at 1200 due to work schedule ezetimibe [Zetia] 10 mg tablet 10 mg PO DAILY lisinopril 10 mg tablet 10 mg DAILY albuterol 90 mcg/actuation Aerosol 90 mcg INHALATION PRN buprenorphine HCl [Belbuca] 150 mcg film 250 mcg BUCCAL BID aspirin [Children's Aspirin] 81 mg Tablet,Chewable 81 mg PO DAILY@0800 Qty: 30 1RF isosorbide mononitrate 30 mg tablet extended release 24 hr 30 mg PO DAILY Qty: 30 0RF nitroglycerin 0.4 mg tablet, sublingual 0.4 mg sublingual Q5M PRN (Reason: chest pain) Qty: 10 0RF Rx Instructions: do not exceed 3 doses per episode clopidogrel [Plavix] 75 mg tablet 75 mg PO DAILY Qty: 30 11RF Follow-up/Referrals: Deidre,MD Doc [Primary Care Provider] - Time of Disposition: 06:37
[2024-09-20] MEDS: HYDROmorphone HCL INJ (*CRX) 1 MG/ML SYR IV PUSH ×3 (06:21→20:05)
[2024-09-20 06:40] LABS: Basophils Absolute Auto 0.1 K/mm3 (0.0-0.1); Basophils Percent Auto 0.3 % (0.2-1.2); Eosinophils Percent Auto 0.2 % (0-4.4); Hematocrit 52.4 % (42.0-52.0); Hemoglobin 18.2 g/dL (14.0-18.0); Immature Granulocyte Absolute 0.07 K/mm3 (0.00-0.031); Immature Granulocyte Percent A 0.4 % (0-0.5); Lymphocytes Absolute Auto 0.48 K/mm3 (0.9-3.2); Lymphocytes Percent Auto 2.6 % (18.3-44.2); Mean Corpuscular HGB Conc 34.7 g/dl (32-36); Mean Corpuscular Hemoglobin 31.5 pg (26-34); Mean Corpuscular Volume 90.8 fl (80-100); Mean Platelet Volume 9.2 fl (7.4-10.4); Monocytes Absolute Auto 0.8 K/mm3 (0.1-0.6); Monocytes Percent Auto 4.2 % (2.6-8.5); Neutrophils Absolute Auto 16.9 K/mm3 (1.3-6.7); Neutrophils Percent Auto 92.3 % (45.5-73.1); Platelet Count Result 197 k/mm3 (150-375); Red Blood Count 5.77 M/mm3 (4.6-6.20); Red Cell Distribution Width 13.6 % (11.5-14.5); White Blood Count 18.3 K/mm3 (4.5-10.0)
[2024-09-20 06:44] LABS: Troponin I 0.238 ng/mL (0.000-0.034)
[2024-09-20 06:55] LABS: INR 1.1; Prothrombin Time 14.7 Seconds (11.1-14.7)
[2024-09-20 06:56] LABS: Partial Thromboplastin Time 27.9 Seconds (22.3-36.8)
[2024-09-20] MEDS: HEPARIN SODIUM 5,000 UNITS/ML VIAL 4000 UNITS IV PUSH (07:12)
[2024-09-20] MEDS: HEPARIN SOD/D5W 100 UNITS/ML 25,000 UNITS/250 ML BAG 10 UNITS IV CONT ×2 (07:13→22:22)
--- NOTE | 2024-09-20 09:35 | ADMGEN ---
0815: This patient, Scott Sanchez, was admitted to IMU Room 200-01. Patient/family oriented to hospital policies and general routines including ID bracelet, bed and alarms, visiting hours, pain management, procedures, bathroom and other care routines, personal items, smoking policy, room service/diet, and visiting hours. Information on how to activate the Rapid Response Team has been discussed. Patient/Family are encouraged to report perceived risks to care and to ask questions if they do not understand what they are told or what they should do.
--- NOTE | 2024-09-20 10:25 | ECG_ITS ---
Test Date: 2024-09-20 11:09:41 Measurements Intervals [place] Rate: 127 P: 50 [place]: 156 QRS: 32 QRSD: 104 T: 31 QT: 316 QTc: 460 Interpretive Statements SINUS TACHYCARDIA INCOMPLETE RIGHT BUNDLE BRANCH BLOCK [90+ ms QRS DURATION, TERMINAL R IN V1/V2, 40+ ms S IN I/aVL/V4/V5/V6] NONSPECIFIC T-WAVE ABNORMALITY ABNORMAL ECG Electronically Signed On 09-20-2024 17:24:45 SAWMILL SUPERVISOR by Yogesh Pineda M.D.
--- NOTE | 2024-09-20 10:27 | ECHO_ITS ---
Patient Info Name: Scott Sanchez Age: 53 years : 1970 Gender: Male Ht: 69 in Wt: 226 lbs BSA: 2.27 m2 HR: 130 bpm BP: 133 / 83 mmHg Technical Quality: Poor Exam Date: 09/20/2024 10:44 AM Exam Location: Echo Lab Patient Status: Inpatient Admit Date: 09/20/2024 Staff Ordering Physician: David Baird MD ([facility]) Molder Vacuum: Morgan Fuentes RDCS Attending Provider: Alo Dior MD Exam Type: CA echo dop color flow w con Study Info Indications - CHEST PAIN Complete two-dimensional, color flow and Doppler transthoracic echocardiogram is performed with contrast to opacify the left ventricle and to improve the deliniation of the left ventricle endocardial borders. Contrast/Agitated Saline Contrast/Ag. Saline: Definity Amount: 2.00 ml Existing IV Access: Yes Reason for Poor Study: poor echocardiographic windows Summary 1. Technically difficult study with limited views. 2. Recommend repeat transthoracic echocardiogram. Left Ventricle Technically difficult study and unable to characterize the left ventricular ejection fraction on this study. Right Ventricle Technically difficult study and unable to characterize the right ventricular systolic function the study. Left Atria The left atrium is normal size. Right Atria The right atrium is normal size. Aortic Valve The aortic valve is not well visualized. Doppler gradients across the valve does not suggest significant stenosis. Pulmonic Valve The pulmonic valve is not well visualized. There is no color Doppler evidence of pulmonic valve regurgitation. Mitral Valve The mitral valve is not well visualized. Tricuspid Valve The tricuspid valve is not well visualized. There is no color Doppler evidence of significant tricuspid regurgitation. Pericardium/Pleural Overall technically difficult study and unable to characterize pericardium. Inferior Vena Cava Inferior vena cava is not well visualized. Aorta The aortic root at the level of the sinus of Valsalva measures 3.4 cm in diameter. Left Ventricular Outflow Tract Name Value Normal LVOT 2D LVOT Diameter 2.29 cm LVOT Doppler LVOT Peak Velocity 93.45 cm/s LVOT Peak Gradient 3 mmHg LVOT Mean Gradient 2 mmHg LVOT VTI 18.55 cm LVOT VTI/AV VTI Ratio 0.78 LVOT Stroke Volume 76.06 ml LVOT CO 9.22 l/min LVOT CI 4.07 L/min/m2 Pulmonic Valve Name Value Normal RVOT Doppler RVOT Peak Gradient 3 mmHg PV Doppler PV Peak Velocity 100.95 cm/s PV Peak Gradient 4 mmHg Mitral Valve Name Value Normal MV Doppler MV Decel [place] 1,210.17 cm/s2 MV PHT 0 s MV Area (PHT) 21.99 cm2 4.00-5.00 MV Diastolic Function MV E Peak Velocity 41.75 cm/s MV A Peak Velocity 93.48 cm/s MV E/A 0.45 MV Decel Time 0 s MV Annular TDI MV Septal e' Velocity 4.32 cm/s >=8.00 MV E/e' (Septal) 9.66 <=8.00 MV Lateral e' Velocity 3.40 cm/s >=10.00 MV E/e' (Lateral) 12.28 <=8.00 MV e' Average 3.86 MV E/e' (Average) 10.97 Tricuspid Valve Name Value Normal TV Annular TDI TV Lateral Natasha s' Velocity 10.06 cm/s 9.50-18.70 Aorta Name Value Normal Ascending Aorta Ao Root Diameter (MM) 3.71 cm Ao Root Diam Index (MM) 1.63 cm/m2 Ao [place] Diameter 3.55 cm 2.60-3.20 Aortic Valve Name Value Normal AV Doppler AV Peak Velocity 151.04 cm/s AV Peak Gradient 9 mmHg AV Mean Gradient 6 mmHg AV VTI 23.75 cm AV Area (Cont Eq VTI) 3.20 cm2 >=3.00 AV Area (Cont Eq Greg) 2.54 cm2 AV V1/V2 Ratio 0.62 AV Regurgitation 2D LVOT Area 4.10 cm2 Ventricles Name Value Normal LV Dimensions 2D/MM IVS Diastolic Thickness (2D) 1.13 cm 0.60-1.00 LVID Diastole (2D) 4.46 cm 4.20-5.80 LVIW Diastolic Thickness (2D) 1.26 cm 0.60-1.00 LVID Systole (2D) 3.65 cm 2.50-4.00 LVOT Diameter 2.29 cm LV Mass (2D Cubed) 193.72 g 88.00-224.00 LV Mass Index (2D Cubed) 0.01 g/cm2 0.00-0.01 Relative Wall Thickness (2D) 0.56 LV Fractional Shortening/Ejection Fraction 2D/MM LV Fractional Shortening (2D) 18 % 25-43 LV EF (2D Teicholz) 38 % 52-72 Atria Name Value Normal LA Dimensions LA Dimension (MM) 3.65 cm 3.00-4.10 LA Volume (4C A-L) 38.68 ml LA Volume (BP A-L) 36.90 ml Report Signatures
--- NOTE | 2024-09-20 10:40 | PC.NURSE ---
Pt admitted from ED. Complaining of chest pressure, 5/10. Heart rate 125-130, sinus tachycardia. Dr. Baird updated with above info. Awaiting furthur orders.
[2024-09-20] MEDS: PERFLUTREN LIPID MICROSPHERES 1.5 ML VIAL DILUTED TO 10 ML TOTAL VOLUME IV PUSH (11:20)
--- NOTE | 2024-09-20 11:34 | IVDEFINITY ---
Prior to administration of IV Definity the patient was educated on the risks and benefits of the imaging enhancing agent including potential adverse side effects. The patient verbalized understanding. Allergies were verified. No exclusion criteria were identified and at least one of the following inclusion criteria were met: 1) physician request, 2) patient technically difficult to image (per the [place] [employer]ocardi[employer] guidelines of two or more segments not discernable within the apical view), or 3) questionable left ventricular function. ?
--- NOTE | 2024-09-20 13:56 | PM.CNCAR ---
Assessment and Plan Assessment and plan (1) NSTEMI (non-ST elevated myocardial infarction): Code(s): I21.4 - Non-ST elevation (NSTEMI) myocardial infarction Status: Acute Plan 53-year-old man with CAD status sp CABG (JAIME-LAD, Radial to rPDA, and SVG Y to OM and Diagonal), infrarenal abdominal aortic aneurysm, and HTN/HLD presents with chest pain and abdominal pain Non ST-elevation AL -given persistent chest discomfort, recommend left heart catheterization urgently -transthoracic echocardiogram was obtained however, it was very technically difficult study and would recommend repeating the transthoracic echocardiogram -on heparin drip, metoprolol tartrate 12.5 mg p.o. b.i.d., and sublingual nitro p.r.n. Infrarenal abdominal aortic aneurysm -stable on recent CT scan Hyperlipidemia -continue home atorvastatin 80 mg every evening History of Present Illness History of Present Illness Consult date/time: 09/20/24 13:56 Requesting physician: Braxton Stewart MD Consult reason: chest pain Reason For Visit: Chest Pain/Elevated Troponin Narrative: 53-year-old man with CAD status sp CABG (JAIME-LAD, Radial to rPDA, and SVG Y to OM and Diagonal), infrarenal abdominal aortic aneurysm, and HTN/HLD presents with chest pain and abdominal pain. He initially had sudden onset of abdominal pain yesterday morning followed by substernal chest pressure. He was vacuuming living room floor when the symptoms occurred suddenly. Previously he was able to ambulate about half mile without any significant shortness of breath. He previously did not have any exertional chest discomfort. He denies any syncopal episodes. He does endorse some orthopnea. He continues to have abdominal discomfort especially in the right upper quadrant and feels his abdomen being very tense and tender. Review of Systems Cardiovascular: Cardiovascular: Reports as per HPI Respiratory: Respiratory: Reports as per HPI Gastrointestinal: Gastrointestinal: Reports as per HPI [facility] Past Medical History Medical History Chronic low back pain Hyperlipidemia CAD (coronary artery disease) Hypertension COPD (chronic obstructive pulmonary disease) Surgical History Surgical History History of lumbar surgery H/O knee surgery Family History Family History Mother Asthma Acute myocardial infarction Sibling Cancer Sibling Cancer Father Acute myocardial infarction Social History Social History Social History: 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 He quit tobacco 7 years ago after smoking 1 pack per day for 20 years. He drinks on average about 1 alcoholic drink per month. He uses medical marijuana about 10 mg at night. No history of drug use or IV drug use. Lives at home with his and 2 adult children. He is a full code. He nominates his to be the individual would make medical decisions for him if he is unable. Smoking packs per day: 1 Smoking cigarettes per day: 20.0 Years smoked: 20 Smoking pack-years: 20.00 Smoking status: Former smoker Tobacco type: cigarettes Second hand tobacco smoke exposure: No Smoking end date: 09/25/15 Alcohol intake: current Drinks per week: 1 Substance use: current Substance use type: marijuana Other substance usage details: marijuana, has medical card. infrequent use Do You Feel Safe in your Home?: Yes Lack of Transportation: No Lack of Food: Never True Current Housing: I Have Housing Concerned About Future Housing: No Difficulty Paying Gas/Electric Bills: No Difficulty Paying for Meds: No Currently Unemployed: No Education: Trade/Vocational Certificate Difficulty w/ Childcare or Family Care: No Spiritual care concerns: No Meds Home Medications and Allergies Home Medications ?Medication ?Instructions ?Recorded ?Confirmed ?Type ezetimibe 10 mg tablet (Zetia) 10 mg PO DAILY 01/02/23 09/20/24 History pregabalin 25 mg capsule (Lyrica) 25 mg PO DAILY 01/02/23 09/20/24 History albuterol 90 mcg/actuation aerosol 90 mcg inhalation PRN 03/04/23 09/20/24 History inhaler lisinopril 10 mg tablet 10 mg PO DAILY 03/04/23 09/20/24 History aspirin 81 mg chewable tablet 81 mg PO DAILY@0800 #30 tabs 03/07/23 09/20/24 Rx ([facility] Aspirin) nitroglycerin 0.4 mg sublingual 0.4 mg sublingual Q5M PRN chest 03/07/23 09/20/24 Rx tablet pain #10 tabs albuterol sulfate 2.5 mg/3 mL 2.5 mg inhalation Q4H PRN 09/20/24 09/20/24 History (0.083 %) solution for nebulization shortness of breath or wheezing albuterol sulfate 90 mcg/actuation 2 puff inhalation Q4H PRN 09/20/24 09/20/24 History aerosol inhaler shortness of breath or wheezing atorvastatin 80 mg tablet 80 mg PO QPM 09/20/24 09/20/24 History buprenorphine HCl 75 mcg buccal 75 mcg buccal Q12H 09/20/24 09/20/24 History film (Belbuca) cilostazol 50 mg tablet 50 mg PO Q12H 09/20/24 09/20/24 History empagliflozin 10 mg tablet 10 mg PO DAILY 09/20/24 09/20/24 History (Jardiance) furosemide 20 mg tablet 20 mg PO DAILY PRN edema 09/20/24 09/20/24 History ipratropium bromide 0.02 % 0.5 mg continuous nebulization Q4H 09/20/24 09/20/24 History solution for inhalation PRN shortness of breath or wheezing metoprolol tartrate 25 mg tablet 25 mg PO Q12H 09/20/24 09/20/24 History rivaroxaban 2.5 mg tablet (Xarelto) 2.5 mg PO BID 09/20/24 09/20/24 History tizanidine 2 mg tablet 2 mg PO Q12H PRN muscle spasticity 09/20/24 09/20/24 History Allergies Allergy/AdvReac Type Severity Reaction Status Date / Time cortisone Allergy Severe Anaphylactic Verified 09/20/24 08:33 Shock metronidazole (From Flagyl) Allergy Unknown Verified 09/20/24 08:33 Vital Signs Vital Signs - 24 hr 09/19/24 19:22 09/20/24 02:03 09/20/24 02:05 Temperature 36.4 C Pulse Rate 96 110 H Respiratory Rate 18 Blood Pressure 157/109 H Pulse Oximetry 95 96 Oxygen Delivery Room Air Room Air 09/20/24 02:06 09/20/24 08:29 09/20/24 10:00 Temperature 36.8 C Pulse Rate 107 H 130 H 130 H Respiratory Rate 15 22 H Blood Pressure 133/83 Pulse Oximetry 96 96 Oxygen Delivery 09/20/24 11:46 Temperature 36.8 C Pulse Rate 130 H Respiratory Rate Blood Pressure 131/104 H Pulse Oximetry 94 Oxygen Delivery Exam Const: General: comfortable HENMT: Mouth: Yes moist mucous membranes Eyes: EOM: EOMs intact bilaterally Neck: Neck: no JVD Resp: Effort & Inspection: normal respiratory effort Auscultation: clear to auscultation bilaterally Cardio: Rate: tachycardic Rhythm: regular rhythm GI: GI Palp: Yes Firmness to palpation present (GI) and Yes Tenderness to palpation present (GI) Neuro: Speech: normal speech Extrem: General: no pedal edema Results Labs and Meds 09/20/24 06:35 09/19/24 19:57 Lab results: Cardiac Enzymes 09/19/24 09/20/24 09/20/24 Range/Units 19:57 02:20 06:14 AST 39 (17-59) U/L Troponin I 0.015 0.202 H* D 0.238 H* (0.000-0.034) ng/mL Coagulation 09/19/24 09/20/24 Range/Units 19:57 06:35 PT 13.6 14.7 (11.1-14.7) Seconds APTT 32.2 27.9 (22.3-36.8) Seconds CBC 09/19/24 09/20/24 Range/Units 19:57 06:35 WBC 8.6 18.3 H (4.5-10.0) K/mm3 RBC 5.63 5.77 (4.6-6.20) M/mm3 Hgb 17.8 18.2 H (14.0-18.0) g/dL Hct 51.7 52.4 H (42.0-52.0) % Plt Count 191 197 (150-375) k/mm3 Lymph # (Auto) 1.68 0.48 L (0.9-3.2) K/mm3 [place] # (Auto) 0.6 0.8 H (0.1-0.6) K/mm3 Eos # (Auto) 0.1 0.0 (0-0.3) K/mm3 Baso # (Auto) 0.0 0.1 (0.0-0.1) K/mm3 Comprehensive Metabolic Panel 09/19/24 Range/Units 19:57 Sodium 137 (137-145) mmol/L Potassium 4.4 (3.4-5.0) mmol/L Chloride 103 (98-107) mmol/L Carbon Dioxide 30 (22-30) mmol/L BUN 17 (9-20) mg/dL Creatinine 1.00 (0.7-1.3) mg/dL Glucose 115 H (65-110) mg/dL Calcium 10.0 (8.4-10.2) mg/dL AST 39 (17-59) U/L ALT 56 H (6-50) U/L Alkaline Phosphatase 79 (38-126) U/L Total Protein 8.0 (6.3-8.2) g/dL Albumin 4.7 (3.5-5.1) g/dL Patient Weight 09/20/24 23:59 Weight 102.8 kg
--- NOTE | 2024-09-20 14:03 | P.PCNCC_ITS ---
Cardiac Cath Procedure Note Date of procedure:: 09/20/24 Performing physician:: CATHETERIZATION LABORATORY REPORT Procedure Date: Referring Physician: Anesthesia: Versed and Fentanyl were ordered and given in my presence at 1236 procedure ended at 1316. Supervision of nurse, Galo Simmons monitored moderate sedation with 2mg Versed and 50mcg Fentanyl was provided for 40 minutes. Pre-op Diagnosis: NSTEMI Post-op Diagnosis: NSTEMI Procedure(s): Left heart catheterization with coronary angiography. Aorta Angiogram Access Site: Right LIAISON OFFICER Brief History and Clinical Indications: All risks, benefits and alternatives to left heart catheterization with or without percutaneous coronary intervention was discussed at length with the patient. Risk of complications including but not limited to bleeding, infection, arrhythmia, stroke, worsening kidney function, blood loss, groin hematoma, limb loss, emergency coronary artery bypass grafting, and even were discussed with the patient and all questions were answered. The patient understood and wished to proceed. Time out called, patient name, date of , medical record number, allergies, procedure performed, identify Veterinary Bacteriologist, patient and staff member concurred with accurate data, procedure carried on. Findings: LEFT HEART CATHETERIZATION FINDINGS: 1. Left main: The left main coronary artery is widely patent without any significant obstructive disease. 2. Left anterior descending: LAD has proximal 70% stenosis followed by an area of 70% stenosis at the distal edge of stent in the mid LAD. The first diagonal branch is a large vessel with subtotal occlusion at its ostium. There is a patent stent in the mid body of this diagonal branch. 3. Left circumflex: The left circumflex artery has severe disease in its proximal body. The true left circumflex continues on without significant disease. The previously stented OM1 system is occluded. 4. Ramus Intermedius: The ramus intermedius is a large caliber vessel that has 20% proximal disease and 20-30% disease in its midbody in a very tortuous segment. 5. Right coronary artery: The RCA is occluded in its distal body. 6. Grafts: A. The SVG Y-graft to OM1 and the 1st diagonal is widely pain with no significant obstructive disease angiographically. B. The radial to distal RPDA has significant spasm and after intracoronary nitroglycerin administration, the vessel was assessed and did not show any angiographically significant obstructive disease. C. The JAIME to LAD is free of any angiographically significant obstructive disease. 7. Left ventricle: A. End-diastolic pressure 23 mmHg. B. LV gram deferred. C. No significant gradient across aortic valve on catheter pullback. 8. Opening AO pressure 125/83 and closing AO pressure 119/85 9. Infra renal aortic aneurysm 10. Right external iliac artery is normal. Right common femoral artery has mild calcific disease. Description of Procedure: Informed consent signed and placed in the chart. Patient transferred to animal laboratory technician room. Prepped and draped in usual sterile fashion. 2% lidocaine in right groin area. Micropuncture needle used to access right common femoral artery with Seldinger technique under fluoroscopic guidance. J wire advanced, micropuncture cannula placed. Right iliofemoral angiogram performed, access confirmed and micropuncture cannula exchanged for 6-FR sheath. 5F JL 4 diagnostic catheter engaged Left Main Coronary Artery. 5F JR 4 diagnostic catheter engaged Right Coronary Artery. 5F JR 4 diagnostic catheter engaged SVG Y graft to OM and Diagonal coronary arteries 5F JR 4 diagnostic catheter engaged radial to rPDA coronary artery 5F JR 4 diagnostic catheter engaged JAIME to LAD Multiple orthogonal angiogram obtained and reviewed 5F Pigtail diagnostic catheter crossed aortic valve to obtain LVEDP, LV angiogram deferred. Hemostasis was achieved by manual pressure as angioseal failed. Assessment: Patent grafts. Type 2 NSTEMI Post Operative Condition: Stable No significant blood loss Disposition: Floor Plan: Can resume heparin drip without bolus tonight at 10pm. If there are no plans for surgery in regards to his abdominal pain, then can resume ASA 81mg PO daily. Repeat TTE as initial TTE was nondiagnostic due to poor quality study with limited views. David Baird Interventional Cardiology
--- NOTE | 2024-09-20 14:03 | P.SEDATION_ITS ---
Moderate Sedation Note-Pt Data Patient Data Allergies Allergy/AdvReac Type Severity Reaction Status Date / Time cortisone Allergy Severe Anaphylactic Verified 09/20/24 08:33 Shock metronidazole (From Flagyl) Allergy Unknown Verified 09/20/24 08:33 Home Medications ?Medication ?Instructions ?Recorded ?Confirmed ?Type ezetimibe 10 mg tablet (Zetia) 10 mg PO DAILY 01/02/23 09/20/24 History pregabalin 25 mg capsule (Lyrica) 25 mg PO DAILY 01/02/23 09/20/24 History albuterol 90 mcg/actuation aerosol 90 mcg inhalation PRN 03/04/23 09/20/24 History inhaler lisinopril 10 mg tablet 10 mg PO DAILY 03/04/23 09/20/24 History aspirin 81 mg chewable tablet 81 mg PO DAILY@0800 #30 tabs 03/07/23 09/20/24 Rx (Children's Aspirin) nitroglycerin 0.4 mg sublingual 0.4 mg sublingual Q5M PRN chest 03/07/23 09/20/24 Rx tablet pain #10 tabs albuterol sulfate 2.5 mg/3 mL 2.5 mg inhalation Q4H PRN 09/20/24 09/20/24 History (0.083 %) solution for nebulization shortness of breath or wheezing albuterol sulfate 90 mcg/actuation 2 puff inhalation Q4H PRN 09/20/24 09/20/24 History aerosol inhaler shortness of breath or wheezing atorvastatin 80 mg tablet 80 mg PO QPM 09/20/24 09/20/24 History buprenorphine HCl 75 mcg buccal 75 mcg buccal Q12H 09/20/24 09/20/24 History film (Belbuca) cilostazol 50 mg tablet 50 mg PO Q12H 09/20/24 09/20/24 History empagliflozin 10 mg tablet 10 mg PO DAILY 09/20/24 09/20/24 History (Jardiance) furosemide 20 mg tablet 20 mg PO DAILY PRN edema 09/20/24 09/20/24 History ipratropium bromide 0.02 % 0.5 mg continuous nebulization Q4H 09/20/24 09/20/24 History solution for inhalation PRN shortness of breath or wheezing metoprolol tartrate 25 mg tablet 25 mg PO Q12H 09/20/24 09/20/24 History rivaroxaban 2.5 mg tablet (Xarelto) 2.5 mg PO BID 09/20/24 09/20/24 History tizanidine 2 mg tablet 2 mg PO Q12H PRN muscle spasticity 09/20/24 09/20/24 History Current Medications: Active Medications Acetaminophen (Acetaminophen 325 Mg Tablet) 650 mg PO Q4H PRN PRN Reason: Mild Pain (1-3) or Fever Heparin Sodium (Porcine) (Heparin Sodium 5,000 Units/Ml Vial) 4,000 units IV PUSH PRN PRN PRN Reason: aPTT less than 55 seconds Heparin Sodium (Porcine) (Heparin Sodium 5,000 Units/Ml Vial) 3,500 units IV PUSH PRN PRN PRN Reason: aPTT 55 - 70 seconds Hydromorphone HCl (Hydromorphone Hcl Inj (*Crx) 1 Mg/Ml Syr) 1 mg IV PUSH Q4H PRN PRN Reason: Pain Rated 7-10 Heparin Sodium/Dextrose (Heparin Sodium/D5w 100 Units/Ml) 25,000 units in 250 mls @ 10 mls/hr IV CONT .Q24H [place]; Protocol Last Admin: 09/20/24 07:13 Dose: 1,000 units/hr, 10 mls/hr Metoprolol Tartrate (Metoprolol Tartrate 12.5 Mg Tablet) 12.5 mg PO Q12HR [place] Nitroglycerin (Nitroglycerin Sl 0.4 Mg Tablet) 0.4 mg SUBLINGUAL Q5MIN PRN PRN Reason: Chest Pain Sedation/Anesthesia: No previous sedation/anesthesia problems (including family history). 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 He quit tobacco 7 years ago after smoking 1 pack per day for 20 years. He drinks on average about 1 alcoholic drink per month. He uses medical marijuana about 10 mg at night. No history of drug use or IV drug use. Lives at home with his and 2 adult children. He is a full code. He nominates his to be the individual would make medical decisions for him if he is unable. Smoking packs per day: 1 Smoking cigarettes per day: 20.0 Years smoked: 20 Smoking pack-years: 20.00 Smoking status: Former smoker Tobacco type: cigarettes Second hand tobacco smoke exposure: No Smoking end date: 09/25/15 Alcohol intake: current Drinks per week: 1 Substance use: current Substance use type: marijuana Other substance usage details: marijuana, has medical card. infrequent use Do You Feel Safe in your Home?: Yes Lack of Transportation: No Lack of Food: Never True Current Housing: I Have Housing Concerned About Future Housing: No Difficulty Paying Gas/Electric Bills: No Difficulty Paying for Meds: No Currently Unemployed: No Education: Trade/Vocational Certificate Difficulty w/ Childcare or Family Care: No Spiritual care concerns: No Mod Sed Physical Exam Physical Exam Pre Procedural Exam: Normal: Lungs and Variation: Heart Rate (tachycardia) Hours since solid foods: 16 Hours since liquid intake: 16 Mallampati Classification: class III Internal Medicine - PN: Obj Da Vital Signs Vital Signs: Vital Signs - 24 hr 09/19/24 19:22 09/20/24 02:03 09/20/24 02:05 Temperature 36.4 C Pulse Rate 96 110 H Respiratory Rate 18 Blood Pressure 157/109 H Pulse Oximetry 95 96 Oxygen Delivery Room Air Room Air 09/20/24 02:06 09/20/24 08:29 09/20/24 10:00 Temperature 36.8 C Pulse Rate 107 H 130 H 130 H Respiratory Rate 15 22 H Blood Pressure 133/83 Pulse Oximetry 96 96 Oxygen Delivery 09/20/24 11:46 Temperature 36.8 C Pulse Rate 130 H Respiratory Rate Blood Pressure 131/104 H Pulse Oximetry 94 Oxygen Delivery Meds/Results Medications: Active Medications Generic Name Dose Route Start Last Admin Trade Name Freq PRN Reason Stop Dose Admin Acetaminophen 650 mg 09/20/24 06:34 Acetaminophen 325 Mg Tablet PO Q4H PRN Mild Pain (1-3) or Fever Heparin Sodium (Porcine) 4,000 units 09/20/24 06:22 Heparin Sodium 5,000 Units/Ml Vial IV PUSH PRN PRN aPTT less than 55 seconds Heparin Sodium (Porcine) 3,500 units 09/20/24 06:22 Heparin Sodium 5,000 Units/Ml Vial IV PUSH PRN PRN aPTT 55 - 70 seconds Hydromorphone HCl 1 mg 09/20/24 06:34 Hydromorphone Hcl Inj (*Crx) 1 Mg/Ml Syr IV PUSH Q4H PRN Pain Rated 7-10 Heparin Sodium/Dextrose 25,000 units in 250 mls @ 10 mls/hr 09/20/24 06:25 09/20/24 07:13 Heparin Sodium/D5w 100 Units/Ml IV CONT 1,000 units/hr .Q24H [place] 10 mls/hr Administration Protocol 1,000 UNITS/HR Metoprolol Tartrate 12.5 mg 09/20/24 10:30 Metoprolol Tartrate 12.5 Mg Tablet PO Q12HR [place] Nitroglycerin 0.4 mg 09/20/24 10:25 Nitroglycerin Sl 0.4 Mg Tablet SUBLINGUAL Q5MIN PRN Chest Pain Radiology Results: ITS Impressions Chest X-Ray 09/19/24 20:39 IMPRESSION: No acute cardiopulmonary process. Chest/Abdomen/Pelvis CTA 09/20/24 05:52 IMPRESSION: 1. Normal-sized gallbladder with gallstones and surrounding fat stranding suspicious for acute cholecystitis. 2. 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 3. 10 mm nodule in left lung lower lobe that measured 5 mm on 04/23/2015. This finding may be benign or malignant. Consider CT-guided biopsy. Abdomen Ultrasound 09/20/24 07:49 IMPRESSION: 1. Normal-sized gallbladder with gallstones and gallbladder wall thickening, but no sonographic Peres's sign. These findings are indeterminate for acute cholecystitis. Consider hepatobiliary scintigraphy. Labs 09/20/24 06:35 09/19/24 19:57 Labs: Laboratory Results - last 24 hr 09/19/24 09/20/24 09/20/24 19:57 02:20 06:14 WBC 8.6 RBC 5.63 Hgb 17.8 Hct 51.7 MCV 91.8 MCH 31.6 MCHC 34.4 RDW 13.6 Plt Count 191 MPV 9.4 Immature Gran % (Auto) 0.2 Neut % (Auto) 71.6 Lymph % (Auto) 19.6 Sherman % (Auto) 6.9 Eos % (Auto) 1.3 Baso % (Auto) 0.4 Lymph # (Auto) 1.68 Sherman # (Auto) 0.6 Eos # (Auto) 0.1 Baso # (Auto) 0.0 Abs Immat Gran (auto) 0.02 Absolute Neuts (auto) 6.1 Absolute Nucleated RBC 0.000 Nucleated RBC % 0.0 PT 13.6 INR 1.0 APTT 32.2 Sodium 137 Potassium 4.4 Chloride 103 Carbon Dioxide 30 Anion Gap 4 BUN 17 Creatinine 1.00 Estim Creat Clear Calc 89 Estimated GFR > 60 Glucose 115 H Calcium 10.0 Total Bilirubin 0.6 AST 39 ALT 56 H Alkaline Phosphatase 79 Troponin I 0.015 0.202 H* D 0.238 H* Total Protein 8.0 Albumin 4.7 Lipase 109 09/20/24 06:35 WBC 18.3 H RBC 5.77 Hgb 18.2 H Hct 52.4 H MCV 90.8 MCH 31.5 MCHC 34.7 RDW 13.6 Plt Count 197 MPV 9.2 Immature Gran % (Auto) 0.4 Neut % (Auto) 92.3 H Lymph % (Auto) 2.6 L Sherman % (Auto) 4.2 Eos % (Auto) 0.2 Baso % (Auto) 0.3 Lymph # (Auto) 0.48 L Sherman # (Auto) 0.8 H Eos # (Auto) 0.0 Baso # (Auto) 0.1 Abs Immat Gran (auto) 0.07 H Absolute Neuts (auto) 16.9 H Absolute Nucleated RBC 0.000 Nucleated RBC % 0.0 PT 14.7 INR 1.1 APTT 27.9 Sodium Potassium Chloride Carbon Dioxide Anion Gap BUN Creatinine Estim Creat Clear Calc Estimated GFR Glucose Calcium Total Bilirubin AST ALT Alkaline Phosphatase Troponin I Total Protein Albumin Lipase ASA Classification/Sedation ASA Classification/Sedation ASA Class: III Emergent: No Risks: Risks, benefits and alternatives explained and patient/family accepted plan for sedation. Patient re-evaluated immediately prior to sedation.
--- NOTE | 2024-09-20 14:03 | WPDHPUPDATE1 ---
History and Physical Update Update Date/Time: 09/20/24 13:03 History and Physical has been reviewed, including an updated exam of the patient. There are NO changes in the patient's condition. Risks, benefits, and alternatives have been discussed and questions answered. Patient agrees to proceed with procedure.
[2024-09-20] MEDS: METOPROLOL TARTRATE 12.5 MG TABLET PO (20:06)
[2024-09-21] VITALS (19 sets, daily range): BP systolic 94–115; BP diastolic 55–68; PULSE 68–102; RESP 12–18; TEMP 36.6–37.1; O2SAT 90–98
[2024-09-21 04:56] LABS: Basophils Percent Auto 0.5 % (0.2-1.2); Eosinophils Absolute Auto 0.1 K/mm3 (0-0.3); Eosinophils Percent Auto 1.3 % (0-4.4); Hematocrit 45.2 % (42.0-52.0); Immature Granulocyte Absolute 0.02 K/mm3 (0.00-0.031); Immature Granulocyte Percent A 0.3 % (0-0.5); Lymphocytes Absolute Auto 0.83 K/mm3 (0.9-3.2); Lymphocytes Percent Auto 13.4 % (18.3-44.2); Mean Corpuscular HGB Conc 33.2 g/dl (32-36); Mean Corpuscular Hemoglobin 31.4 pg (26-34); Mean Corpuscular Volume 94.6 fl (80-100); Mean Platelet Volume 9.7 fl (7.4-10.4); Monocytes Absolute Auto 0.7 K/mm3 (0.1-0.6); Monocytes Percent Auto 11.7 % (2.6-8.5); Neutrophils Absolute Auto 4.5 K/mm3 (1.3-6.7); Neutrophils Percent Auto 72.8 % (45.5-73.1); Platelet Count Result 144 k/mm3 (150-375); Red Blood Count 4.78 M/mm3 (4.6-6.20); Red Cell Distribution Width 13.7 % (11.5-14.5); White Blood Count 6.2 K/mm3 (4.5-10.0)
[2024-09-21 05:08] LABS: Partial Thromboplastin Time 37.6 Seconds (22.3-36.8)
[2024-09-21] MEDS: HEPARIN SODIUM 5,000 UNITS/ML VIAL 4000 UNITS IV PUSH (05:15)
--- NOTE | 2024-09-21 07:52 | PM.IMHP ---
H&P: HPI History of Present Illness Date/Time: 09/20/24 07:52 Chief Complaint: Upper Epigastric Pain Narrative: Patient presented to the ER with reports of upper epigastric pain that started 2-3 days prior to his presentation. Patient was seen 02/2023 at this facility and had a LHC showing progressive high-grade (90-95%) stenosis in the proximal circumflex in the area of previous stent and high-grade disease in the RPL branch of the RCA. Plan for medical management and revascularization at a facility that is better equipped to handle complex cardiac lesions. Symptoms appear similar with the presentation on 02/2023, with elevated troponin as well, and cardiology has been consulted for further recommendations. 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 He quit tobacco 7 years ago after smoking 1 pack per day for 20 years. He drinks on average about 1 alcoholic drink per month. He uses medical marijuana about 10 mg at night. No history of drug use or IV drug use. Lives at home with his and 2 adult children. He is a full code. He nominates his to be the individual would make medical decisions for him if he is unable. Smoking packs per day: 1 Smoking cigarettes per day: 20.0 Years smoked: 20 Smoking pack-years: 20.00 Smoking status: Former smoker Tobacco type: cigarettes Second hand tobacco smoke exposure: No Smoking end date: 09/25/15 Alcohol intake: current Drinks per week: 1 Substance use: current Substance use type: marijuana Other substance usage details: marijuana, has medical card. infrequent use Do You Feel Safe in your Home?: Yes Lack of Transportation: No Lack of Food: Never True Current Housing: I Have Housing Concerned About Future Housing: No Difficulty Paying Gas/Electric Bills: No Difficulty Paying for Meds: No Currently Unemployed: No Education: Trade/Vocational Certificate Difficulty w/ Childcare or Family Care: No Spiritual care concerns: No Meds Home Medications and Allergies Home Medications ?Medication ?Instructions ?Recorded ?Confirmed ?Type ezetimibe 10 mg tablet (Zetia) 10 mg PO DAILY 01/02/23 09/20/24 History pregabalin 25 mg capsule (Lyrica) 25 mg PO DAILY 01/02/23 09/20/24 History albuterol 90 mcg/actuation aerosol 90 mcg inhalation PRN 03/04/23 09/20/24 History inhaler lisinopril 10 mg tablet 10 mg PO DAILY 03/04/23 09/20/24 History aspirin 81 mg chewable tablet 81 mg PO DAILY@0800 #30 tabs 03/07/23 09/20/24 Rx (Children's Aspirin) nitroglycerin 0.4 mg sublingual 0.4 mg sublingual Q5M PRN chest 03/07/23 09/20/24 Rx tablet pain #10 tabs albuterol sulfate 2.5 mg/3 mL 2.5 mg inhalation Q4H PRN 09/20/24 09/20/24 History (0.083 %) solution for nebulization shortness of breath or wheezing albuterol sulfate 90 mcg/actuation 2 puff inhalation Q4H PRN 09/20/24 09/20/24 History aerosol inhaler shortness of breath or wheezing atorvastatin 80 mg tablet 80 mg PO QPM 09/20/24 09/20/24 History buprenorphine HCl 75 mcg buccal 75 mcg buccal Q12H 09/20/24 09/20/24 History film (Belbuca) cilostazol 50 mg tablet 50 mg PO Q12H 09/20/24 09/20/24 History empagliflozin 10 mg tablet 10 mg PO DAILY 09/20/24 09/20/24 History (Jardiance) furosemide 20 mg tablet 20 mg PO DAILY PRN edema 09/20/24 09/20/24 History ipratropium bromide 0.02 % 0.5 mg continuous nebulization Q4H 09/20/24 09/20/24 History solution for inhalation PRN shortness of breath or wheezing metoprolol tartrate 25 mg tablet 25 mg PO Q12H 09/20/24 09/20/24 History rivaroxaban 2.5 mg tablet (Xarelto) 2.5 mg PO BID 09/20/24 09/20/24 History tizanidine 2 mg tablet 2 mg PO Q12H PRN muscle spasticity 09/20/24 09/20/24 History Allergies Allergy/AdvReac Type Severity Reaction Status Date / Time cortisone Allergy Severe Anaphylactic Verified 09/20/24 08:33 Shock metronidazole (From Flagyl) Allergy Unknown Verified 09/20/24 08:33 Vital Signs Vital Signs - 24 hr 09/20/24 08:29 09/20/24 10:00 09/20/24 11:46 Temperature 98.3 F 98.2 F Pulse Rate 130 H 130 H 130 H Pulse Rate [Right Pedal (Dorsalis Pedis) Palpation] Respiratory Rate 22 H Blood Pressure 133/83 131/104 H Pulse Oximetry 96 94 Oxygen Delivery Oxygen Flow Rate 09/20/24 13:52 09/20/24 13:52 09/20/24 14:00 Temperature Pulse Rate 130 H 126 H Pulse Rate [Right Pedal (Dorsalis Pedis) Palpation] 124 H Respiratory Rate 20 18 Blood Pressure 131/104 H 128/73 Pulse Oximetry 95 95 Oxygen Delivery Room Air Room Air Oxygen Flow Rate 09/20/24 14:00 09/20/24 14:15 09/20/24 14:15 Temperature 98.2 F Pulse Rate 126 H Pulse Rate [Right Pedal (Dorsalis Pedis) Palpation] 125 H 125 H Respiratory Rate 18 Blood Pressure 128/73 Pulse Oximetry 95 Oxygen Delivery Room Air Oxygen Flow Rate 09/20/24 14:30 09/20/24 14:30 09/20/24 14:45 Temperature Pulse Rate 122 H Pulse Rate [Right Pedal (Dorsalis Pedis) Palpation] 121 H 127 H Respiratory Rate 18 Blood Pressure 123/87 Pulse Oximetry 97 Oxygen Delivery Room Air Oxygen Flow Rate 09/20/24 14:45 09/20/24 15:00 09/20/24 15:00 Temperature Pulse Rate 130 H 127 H Pulse Rate [Right Pedal (Dorsalis Pedis) Palpation] 128 H Respiratory Rate 18 18 Blood Pressure 136/87 133/94 H Pulse Oximetry 94 96 Oxygen Delivery Room Air Room Air Oxygen Flow Rate 09/20/24 15:30 09/20/24 15:30 09/20/24 16:00 Temperature Pulse Rate 126 H Pulse Rate [Right Pedal (Dorsalis Pedis) Palpation] 127 H Respiratory Rate 16 Blood Pressure 112/83 Pulse Oximetry 93 Oxygen Delivery Room Air Room Air Oxygen Flow Rate 09/20/24 16:00 09/20/24 16:12 09/20/24 17:00 Temperature 98.2 F 98.2 F Pulse Rate 122 H 124 H 124 H Pulse Rate [Right Pedal (Dorsalis Pedis) Palpation] Respiratory Rate 20 Blood Pressure 140/96 H 105/61 Pulse Oximetry 95 20 L Oxygen Delivery Oxygen Flow Rate 09/20/24 17:56 09/20/24 18:00 09/20/24 18:55 Temperature 98.1 F 98.7 F Pulse Rate 119 H 114 H 117 H Pulse Rate [Right Pedal (Dorsalis Pedis) Palpation] Respiratory Rate 22 H 20 Blood Pressure 110/71 115/70 Pulse Oximetry 94 96 Oxygen Delivery Oxygen Flow Rate 09/20/24 19:55 09/20/24 20:00 09/20/24 20:00 Temperature 99.0 F Pulse Rate 114 H 111 H Pulse Rate [Right Pedal (Dorsalis Pedis) Palpation] Respiratory Rate 14 Blood Pressure 120/72 Pulse Oximetry 96 Oxygen Delivery Room Air Oxygen Flow Rate 09/20/24 20:06 09/20/24 21:00 09/20/24 22:00 Temperature 98.1 F Pulse Rate 114 H 117 H 106 H Pulse Rate [Right Pedal (Dorsalis Pedis) Palpation] Respiratory Rate 12 Blood Pressure 128/63 Pulse Oximetry 92 Oxygen Delivery Oxygen Flow Rate 09/20/24 22:59 09/21/24 00:00 09/21/24 00:00 Temperature 98.6 F Pulse Rate 95 97 Pulse Rate [Right Pedal (Dorsalis Pedis) Palpation] Respiratory Rate 20 Blood Pressure 112/63 Pulse Oximetry 98 Oxygen Delivery Room Air Oxygen Flow Rate 09/21/24 02:00 09/21/24 03:56 09/21/24 04:00 Temperature Pulse Rate 95 102 H Pulse Rate [Right Pedal (Dorsalis Pedis) Palpation] Respiratory Rate Blood Pressure Pulse Oximetry 93 Oxygen Delivery Nasal Cannula Oxygen Flow Rate 2 09/21/24 04:01 09/21/24 05:49 Temperature 98.3 F Pulse Rate 101 H 102 H Pulse Rate [Right Pedal (Dorsalis Pedis) Palpation] Respiratory Rate 12 Blood Pressure 113/67 Pulse Oximetry 92 Oxygen Delivery Oxygen Flow Rate Exam Narrative: General: Fair appearing, no acute distress. HEENT: Atraumatic, PERRL, EOM, moist mucosa. NECK: Supple. Lungs: Clear bilaterally. Heart: RRR, no murmurs. Abdomen: Soft, non-tender, obese, +ve sounds X4 quadrants. Extremities: Acyanotic, no edema. Skin: Warm and dry with no lesions. Neuro: Well oriented. CN II-XII with no focal deficits. Psych: Pleasant and co-operative. H&P: Results Labs Labs: Short CBC 09/21/24 Range/Units 04:04 WBC 6.2 (4.5-10.0) K/mm3 Hgb 15.0 D (14.0-18.0) g/dL Hct 45.2 (42.0-52.0) % Plt Count 144 L (150-375) k/mm3 Assessment and Plan Assessment and plan (1) NSTEMI (non-ST elevated myocardial infarction): Code(s): I21.4 - Non-ST elevation (NSTEMI) myocardial infarction Status: Acute Assessment and Plan: - Patient reporting upper epigastric pain. - Initial EKG: SR with 1st degree block. - Repeat EKG: ST with RBB, cannot r/o antereseptal MT. - Troponin trended up; 0.202>>0.238 - Cardiology consulted. - Patient on heparin drip. - Awaiting cardiology to see and we'll follow recommendations. - Patient on asirin, metoprolol, lisinopril already. - Continue tele monitoring. - We'll follow cardiology recommendations. (2) LV dysfunction: Code(s): I51.9 - Heart disease, unspecified Status: Acute Assessment and Plan: - Appears stable for now. - TT ECHO ordered. - Continue metoprolol and Lisinopril. (3) ACS (acute coronary syndrome): Code(s): I24.9 - Acute ischemic heart disease, unspecified Status: Acute Assessment and Plan: - Mgt as # 1. - Cardiology consulted. - Further mgt pending cardiology recommendations. - Continue tele monitoring. (4) COPD (chronic obstructive pulmonary disease): Code(s): J44.9 - Chronic obstructive pulmonary disease, unspecified Status: Acute Assessment and Plan: - Appears compensated. - Bronchodilators as needed. (5) Hypertension: Code(s): I10 - Essential (primary) hypertension Status: Acute Assessment and Plan: - Appears well controlled for now. - Continue home meds and adjust as needed. Plan Awaiting cardiology evaluation regarding EKG changes and changes in troponin. Further mgt pending stab setter and driller recommendations. Quality VTE Prophylaxis VTE prophylaxis: mechanical ordered and pharmacologic ordered Hospitalist [facility] Advance Care Plan I have confirmed that the patient's Advanced Care Plan is present, code status is documented, or surrogate decision maker is listed in patient medical record.: Yes Medication Reconciliation I have utilized all available resources to obtain, update and review the patients current medications (includes all prescriptions, OTC, herbals, cannabis, and nutritional supplements).: Yes
[2024-09-21] MEDS: METOPROLOL TARTRATE 12.5 MG TABLET PO (08:01)
[2024-09-21] MEDS: ACETAMINOPHEN 325 MG TABLET 650 MG PO ×2 (08:04→20:03)
--- NOTE | 2024-09-21 09:38 | PM.PNCARD ---
Progress Note: A&P Assessment and Plan (1) CAD (coronary artery disease): Code(s): I25.10 - Atherosclerotic heart disease of [place] coronary artery without angina pectoris Status: Acute Assessment and Plan: Continue heparin for another 24 hours. Resume aspirin, atorvastatin 80 mg daily, cilostazol 50 mg p.o. b.i.d., metoprolol 25 mg p.o. q.12 hours, lisinopril 10 mg daily and Jardiance and ezetimibe (2) NSTEMI (non-ST elevated myocardial infarction): Code(s): I21.4 - Non-ST elevation (NSTEMI) myocardial infarction Status: Acute Assessment and Plan: Elevated troponins. Uncertain if this is related ACS at this point.? Pulmonary embolism. Workup per hospitalist. Continue heparin for now (3) Hyperlipidemia: Code(s): E78.5 - Hyperlipidemia, unspecified Status: Acute Assessment and Plan: Resume statin and ezetimibe (4) Hypertension: Code(s): I10 - Essential (primary) hypertension Status: Acute Assessment and Plan: Continue metoprolol, lisinopril Plan The remainder of his medications also be reconciled per hospitalist service Subjective Date/time seen: 09/21/24 09:38 Interval history: 53-year-old with known history of CAD admitted for chest pain and abdominal pain. Underwent coronary angiogram yesterday which showed patent grafts. Date of service 09/21/2024: Feels okay today without any chest pain but still has some epigastric/upper abdominal pain. This is better than yesterday. Review of Systems Constitutional: Constitutional: Denies body ache(s) ENT: Reports Normal hearing present Cardiovascular: Cardiovascular: Denies chest pain Respiratory: Respiratory: Denies dyspnea Gastrointestinal: Gastrointestinal: Reports abdominal pain Genitourinary: Genitourinary: Denies hematuria Musculoskeletal: Musculoskeletal: Denies back pain Integumentary/Breasts: Skin/Breast: Denies skin pain Exam Const: General: comfortable HENMT: Mouth: Yes moist mucous membranes Eyes: EOM: EOMs intact bilaterally Neck: Neck: no JVD Resp: Effort & Inspection: normal respiratory effort Auscultation: clear to auscultation bilaterally Cardio: Rate: regular rate and tachycardic Rhythm: regular rhythm Skin: Other: Right groin is free of hematoma ecchymosis or bruit Neuro: Speech: normal speech Extrem: General: no pedal edema Objective Data Vital Signs Vital Signs: Vital Signs - 24 hr 09/20/24 10:00 09/20/24 11:46 09/20/24 13:52 Temperature 36.8 C Pulse Rate 130 H 130 H 130 H Pulse Rate [Right Pedal (Dorsalis Pedis) Palpation] Respiratory Rate 20 Blood Pressure 131/104 H 131/104 H Pulse Oximetry 94 95 Oxygen Delivery Room Air Oxygen Flow Rate 09/20/24 13:52 09/20/24 14:00 09/20/24 14:00 Temperature Pulse Rate 126 H Pulse Rate [Right Pedal (Dorsalis Pedis) Palpation] 124 H 125 H Respiratory Rate 18 Blood Pressure 128/73 Pulse Oximetry 95 Oxygen Delivery Room Air Oxygen Flow Rate 09/20/24 14:15 09/20/24 14:15 09/20/24 14:30 Temperature 36.8 C Pulse Rate 126 H Pulse Rate [Right Pedal (Dorsalis Pedis) Palpation] 125 H 121 H Respiratory Rate 18 Blood Pressure 128/73 Pulse Oximetry 95 Oxygen Delivery Room Air Oxygen Flow Rate 09/20/24 14:30 09/20/24 14:45 09/20/24 14:45 Temperature Pulse Rate 122 H 130 H Pulse Rate [Right Pedal (Dorsalis Pedis) Palpation] 127 H Respiratory Rate 18 18 Blood Pressure 123/87 136/87 Pulse Oximetry 97 94 Oxygen Delivery Room Air Room Air Oxygen Flow Rate 09/20/24 15:00 09/20/24 15:00 09/20/24 15:30 Temperature Pulse Rate 127 H Pulse Rate [Right Pedal (Dorsalis Pedis) Palpation] 128 H 127 H Respiratory Rate 18 Blood Pressure 133/94 H Pulse Oximetry 96 Oxygen Delivery Room Air Oxygen Flow Rate 09/20/24 15:30 09/20/24 16:00 09/20/24 16:00 Temperature Pulse Rate 126 H 122 H Pulse Rate [Right Pedal (Dorsalis Pedis) Palpation] Respiratory Rate 16 Blood Pressure 112/83 Pulse Oximetry 93 Oxygen Delivery Room Air Room Air Oxygen Flow Rate 09/20/24 16:12 09/20/24 17:00 09/20/24 17:56 Temperature 36.8 C 36.8 C 36.7 C Pulse Rate 124 H 124 H 119 H Pulse Rate [Right Pedal (Dorsalis Pedis) Palpation] Respiratory Rate 20 22 H Blood Pressure 140/96 H 105/61 110/71 Pulse Oximetry 95 20 L 94 Oxygen Delivery Oxygen Flow Rate 09/20/24 18:00 09/20/24 18:55 09/20/24 19:55 Temperature 37.1 C 37.2 C Pulse Rate 114 H 117 H 114 H Pulse Rate [Right Pedal (Dorsalis Pedis) Palpation] Respiratory Rate 20 14 Blood Pressure 115/70 120/72 Pulse Oximetry 96 96 Oxygen Delivery Oxygen Flow Rate 09/20/24 20:00 09/20/24 20:00 09/20/24 20:06 Temperature Pulse Rate 111 H 114 H Pulse Rate [Right Pedal (Dorsalis Pedis) Palpation] Respiratory Rate Blood Pressure Pulse Oximetry Oxygen Delivery Room Air Oxygen Flow Rate 09/20/24 21:00 09/20/24 22:00 09/20/24 22:59 Temperature 36.7 C 37.0 C Pulse Rate 117 H 106 H 95 Pulse Rate [Right Pedal (Dorsalis Pedis) Palpation] Respiratory Rate 12 20 Blood Pressure 128/63 112/63 Pulse Oximetry 92 98 Oxygen Delivery Oxygen Flow Rate 09/21/24 00:00 09/21/24 00:00 09/21/24 02:00 Temperature Pulse Rate 97 95 Pulse Rate [Right Pedal (Dorsalis Pedis) Palpation] Respiratory Rate Blood Pressure Pulse Oximetry Oxygen Delivery Room Air Oxygen Flow Rate 09/21/24 03:56 09/21/24 04:00 09/21/24 04:01 Temperature 36.8 C Pulse Rate 102 H 101 H Pulse Rate [Right Pedal (Dorsalis Pedis) Palpation] Respiratory Rate 12 Blood Pressure 113/67 Pulse Oximetry 93 92 Oxygen Delivery Nasal Cannula Oxygen Flow Rate 2 09/21/24 05:49 09/21/24 08:00 09/21/24 08:00 Temperature 37.1 C Pulse Rate 102 H 93 96 Pulse Rate [Right Pedal (Dorsalis Pedis) Palpation] Respiratory Rate 18 18 Blood Pressure 101/63 Pulse Oximetry 96 96 Oxygen Delivery Nasal Cannula Oxygen Flow Rate 2 09/21/24 08:00 09/21/24 08:01 09/21/24 08:42 Temperature Pulse Rate 96 96 98 Pulse Rate [Right Pedal (Dorsalis Pedis) Palpation] Respiratory Rate Blood Pressure Pulse Oximetry Oxygen Delivery Oxygen Flow Rate Intake/Output Intake/Output: Intake & Output 09/18/24 09/19/24 09/20/24 09/21/24 23:59 23:59 23:59 23:59 Intake Total 487.8 119 Output Total 900 550 Balance -412.2 -431 Meds/Results Medications: Active Medications Generic Name Dose Route Start Last Admin Trade Name Freq PRN Reason Stop Dose Admin Acetaminophen 650 mg 09/20/24 06:34 09/21/24 08:04 Acetaminophen 325 Mg Tablet PO 650 mg Q4H PRN Administration Mild Pain (1-3) or Fever Heparin Sodium (Porcine) 4,000 units 09/20/24 06:22 09/21/24 05:15 Heparin Sodium 5,000 Units/Ml Vial IV PUSH 4,000 units PRN PRN Administration aPTT less than 55 seconds Heparin Sodium (Porcine) 3,500 units 09/20/24 06:22 Heparin Sodium 5,000 Units/Ml Vial IV PUSH PRN PRN aPTT 55 - 70 seconds Hydromorphone HCl 1 mg 09/20/24 06:34 09/20/24 20:05 Hydromorphone Hcl Inj (*Crx) 1 Mg/Ml Syr IV PUSH 1 mg Q4H PRN Administration Pain Rated 7-10 Heparin Sodium/Dextrose 25,000 units in 250 mls @ 13 mls/hr 09/20/24 06:25 09/21/24 05:16 Heparin Sodium/D5w 100 Units/Ml IV CONT 1,300 units/hr .[id number] [place] 13 mls/hr Titration Protocol 1,300 UNITS/HR Metoprolol Tartrate 12.5 mg 09/20/24 10:30 09/21/24 08:01 Metoprolol Tartrate 12.5 Mg Tablet PO 12.5 mg Q12HR [place] Administration Nitroglycerin 0.4 mg 09/20/24 10:25 Nitroglycerin Sl 0.4 Mg Tablet SUBLINGUAL Q5MIN PRN Chest Pain Radiology Results: ITS Impressions Chest X-Ray 09/19/24 20:39 IMPRESSION: No acute cardiopulmonary process. Chest/Abdomen/Pelvis CTA 09/20/24 05:52 IMPRESSION: 1. Normal-sized gallbladder with gallstones and surrounding fat stranding suspicious for acute cholecystitis. 2. 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 3. 10 mm nodule in left lung lower lobe that measured 5 mm on 04/23/2015. This finding may be benign or malignant. Consider CT-guided biopsy. Abdomen Ultrasound 09/20/24 07:49 IMPRESSION: 1. Normal-sized gallbladder with gallstones and gallbladder wall thickening, but no sonographic Peres's sign. These findings are indeterminate for acute cholecystitis. Consider hepatobiliary scintigraphy. Labs Labs: Laboratory Results - last 24 hr 09/21/24 04:04 WBC 6.2 RBC 4.78 Hgb 15.0 D Hct 45.2 MCV 94.6 MCH 31.4 MCHC 33.2 RDW 13.7 Plt Count 144 L MPV 9.7 Immature Gran % (Auto) 0.3 Neut % (Auto) 72.8 Lymph % (Auto) 13.4 L [place] % (Auto) 11.7 H Eos % (Auto) 1.3 Baso % (Auto) 0.5 Lymph # (Auto) 0.83 L [place] # (Auto) 0.7 H Eos # (Auto) 0.1 Baso # (Auto) 0.0 Abs Immat Gran (auto) 0.02 Absolute Neuts (auto) 4.5 Absolute Nucleated RBC 0.000 Nucleated RBC % 0.0 APTT 37.6 H cardiac catheterization . Left main: The left main coronary artery is widely patent without any significant obstructive disease. 2. Left anterior descending: LAD has proximal 70% stenosis followed by an area of 70% stenosis at the distal edge of stent in the mid LAD. The first diagonal branch is a large vessel with subtotal occlusion at its ostium. There is a patent stent in the mid body of this diagonal branch. 3. Left circumflex: The left circumflex artery has severe disease in its proximal body. The true left circumflex continues on without significant disease. The previously stented OM1 system is occluded. 4. Ramus Intermedius: The ramus intermedius is a large caliber vessel that has 20% proximal disease and 20-30% disease in its midbody in a very tortuous segment. 5. Right coronary artery: The RCA is occluded in its distal body. 6. Grafts: A. The SVG Y-graft to OM1 and the 1st diagonal is widely pain with no significant obstructive disease angiographically. B. The radial to distal RPDA has significant spasm and after intracoronary nitroglycerin administration, the vessel was assessed and did not show any angiographically significant obstructive disease. C. The JAIME to LAD is free of any angiographically significant obstructive disease. 7. Left ventricle: A. End-diastolic pressure 23 mmHg. B. LV gram deferred. C. No significant gradient across aortic valve on catheter pullback. 8. Opening AO pressure 125/83 and closing AO pressure 119/85 9. Infra renal aortic aneurysm
[2024-09-21 12:08] LABS: Partial Thromboplastin Time > 200.0 Seconds (22.3-36.8)
--- NOTE | 2024-09-21 12:24 | ADMGEN ---
Lab called PTT greater than 200, @ 12:09pm. Heparin drip held for 1 hour.
[2024-09-21] MEDS: ONDANSETRON INJ 4 MG/2 ML VIAL IV PUSH (14:04)
--- NOTE | 2024-09-21 18:24 | PM.IMPN ---
Progress Note: A&P Assessment and Plan (1) NSTEMI (non-ST elevated myocardial infarction): Code(s): I21.4 - Non-ST elevation (NSTEMI) myocardial infarction Status: Acute Assessment and Plan: - Initial EKG: SR with 1st degree block. - Repeat EKG: ST with RBB, cannot r/o antereseptal [place]. - Troponin trended up; 0.202>>0.238 - Seen by Cardiology and pt s/p cardiac cath without interventions. - Patient on heparin drip for 24 hrs per cardiology. - Patient on asirin, metoprolol, lisinopril. - We'll restart aspirin if no surgery plan. - Continue tele monitoring. (2) LV dysfunction: Code(s): I51.9 - Heart disease, unspecified Status: Acute Assessment and Plan: - Appears stable for now. - TT ECHO pending. - Continue metoprolol and Lisinopril. (3) ACS (acute coronary syndrome): Code(s): I24.9 - Acute ischemic heart disease, unspecified Status: Acute Assessment and Plan: - Mgt as # 1. - Seen by Cardiology. - s/p cardiac cath without interventions. - Continue tele monitoring. (4) COPD (chronic obstructive pulmonary disease): Code(s): J44.9 - Chronic obstructive pulmonary disease, unspecified Status: Acute Assessment and Plan: - Appears compensated. - Bronchodilators as needed. (5) Hypertension: Code(s): I10 - Essential (primary) hypertension Status: Acute Assessment and Plan: - Appears well controlled for now. - Continue current meds. Plan Awaiting to see general surgery. Time Spent With Patient Time with patient: 15 - 25 minutes Subjective Date/time seen: 09/21/24 18:24 Patient states he has some upper epigastric pain otherwise feels ok. Interval history: Pt calm on bedrest and looks to be in no acute distress. Review of Systems Review of Systems: All systems reviewed & are unremarkable except as noted in HPI and below Exam Narrative: General: Fair appearing, no acute distress. HEENT: Atraumatic, PERRL, EOM, moist mucosa. NECK: Supple. Lungs: Clear bilaterally. Heart: RRR, no murmurs. Abdomen: Soft, non-tender, obese, +ve sounds X4 quadrants. Extremities: Acyanotic, no edema. Skin: Warm and dry with no lesions. Neuro: Well oriented. CN II-XII with no focal deficits. Psych: Pleasant and co-operative. Objective Data Vital Signs Vital Signs: Vital Signs - 24 hr 09/20/24 18:55 09/20/24 19:55 09/20/24 20:00 Temperature 98.7 F 99.0 F Pulse Rate 117 H 114 H Respiratory Rate 20 14 Blood Pressure 115/70 120/72 Pulse Oximetry 96 96 Oxygen Delivery Room Air Oxygen Flow Rate 09/20/24 20:00 09/20/24 20:06 09/20/24 21:00 Temperature 98.1 F Pulse Rate 111 H 114 H 117 H Respiratory Rate 12 Blood Pressure 128/63 Pulse Oximetry 92 Oxygen Delivery Oxygen Flow Rate 09/20/24 22:00 09/20/24 22:59 09/21/24 00:00 Temperature 98.6 F Pulse Rate 106 H 95 97 Respiratory Rate 20 Blood Pressure 112/63 Pulse Oximetry 98 Oxygen Delivery Oxygen Flow Rate 09/21/24 00:00 09/21/24 02:00 09/21/24 03:56 Temperature Pulse Rate 95 Respiratory Rate Blood Pressure Pulse Oximetry 93 Oxygen Delivery Room Air Nasal Cannula Oxygen Flow Rate 2 09/21/24 04:00 09/21/24 04:01 09/21/24 05:49 Temperature 98.3 F Pulse Rate 102 H 101 H 102 H Respiratory Rate 12 Blood Pressure 113/67 Pulse Oximetry 92 Oxygen Delivery Oxygen Flow Rate 09/21/24 08:00 09/21/24 08:00 09/21/24 08:00 Temperature 98.7 F Pulse Rate 93 96 96 Respiratory Rate 18 18 Blood Pressure 101/63 Pulse Oximetry 96 96 Oxygen Delivery Nasal Cannula Oxygen Flow Rate 2 09/21/24 08:01 09/21/24 08:42 09/21/24 11:06 Temperature Pulse Rate 96 98 98 Respiratory Rate 18 Blood Pressure Pulse Oximetry 96 Oxygen Delivery Nasal Cannula Oxygen Flow Rate 2 09/21/24 11:06 09/21/24 11:28 09/21/24 14:00 Temperature 98.3 F Pulse Rate 98 86 86 Respiratory Rate 18 Blood Pressure 104/65 Pulse Oximetry 90 Oxygen Delivery Oxygen Flow Rate 09/21/24 16:00 09/21/24 16:00 09/21/24 16:00 Temperature 98.0 F Pulse Rate 86 86 75 Respiratory Rate 18 18 Blood Pressure 115/68 Pulse Oximetry 90 98 Oxygen Delivery Nasal Cannula Oxygen Flow Rate 2 Intake/Output Intake/Output: Intake & Output 09/18/24 09/19/24 09/20/24 09/21/24 23:59 23:59 23:59 23:59 Intake Total 487.8 648.7 Output Total 900 1250 Balance -412.2 -601.3 Meds/Results Medications: Active Medications Generic Name Dose Route Start Last Admin Trade Name Freq PRN Reason Stop Dose Admin Acetaminophen 650 mg 09/20/24 06:34 09/21/24 08:04 Acetaminophen 325 Mg Tablet PO 650 mg Q4H PRN Administration Mild Pain (1-3) or Fever Aspirin 81 mg 09/22/24 09:00 Aspirin 81 Mg Enteric Tablet PO QAM [facility] Atorvastatin Calcium 80 mg 09/22/24 09:00 Atorvastatin 40 Mg Tablet PO DAILY [facility] Ezetimibe 10 mg 09/22/24 09:00 Ezetimibe 10 Mg Tablet PO QAM [facility] Heparin Sodium (Porcine) 4,000 units 09/20/24 06:22 09/21/24 05:15 Heparin Sodium 5,000 Units/Ml Vial IV PUSH 4,000 units PRN PRN Administration aPTT less than 55 seconds Heparin Sodium (Porcine) 3,500 units 09/20/24 06:22 Heparin Sodium 5,000 Units/Ml Vial IV PUSH PRN PRN aPTT 55 - 70 seconds Hydromorphone HCl 1 mg 09/20/24 06:34 09/20/24 20:05 Hydromorphone Hcl Inj (*Crx) 1 Mg/Ml Syr IV PUSH 1 mg Q4H PRN Administration Pain Rated 7-10 Heparin Sodium/Dextrose 25,000 units in 250 mls @ 10 mls/hr 09/20/24 06:25 09/21/24 13:10 Heparin Sodium/D5w 100 Units/Ml IV CONT 1,000 units/hr .Q24H [place] 10 mls/hr Titration Protocol 1,000 UNITS/HR Lisinopril 10 mg 09/22/24 09:00 Lisinopril 10 Mg Tablet PO DAILY [facility] Metoprolol Tartrate 25 mg 09/21/24 21:00 Metoprolol Tartrate 25 Mg Tablet PO Q12HR [facility] Nitroglycerin 0.4 mg 09/20/24 10:25 Nitroglycerin Sl 0.4 Mg Tablet SUBLINGUAL Q5MIN PRN Chest Pain Radiology Results: ITS Impressions Chest X-Ray 09/19/24 20:39 IMPRESSION: No acute cardiopulmonary process. Chest/Abdomen/Pelvis CTA 09/20/24 05:52 IMPRESSION: 1. Normal-sized gallbladder with gallstones and surrounding fat stranding suspicious for acute cholecystitis. 2. 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 3. 10 mm nodule in left lung lower lobe that measured 5 mm on 04/23/2015. This finding may be benign or malignant. Consider CT-guided biopsy. Abdomen Ultrasound 09/20/24 07:49 IMPRESSION: 1. Normal-sized gallbladder with gallstones and gallbladder wall thickening, but no sonographic Peres's sign. These findings are indeterminate for acute cholecystitis. Consider hepatobiliary scintigraphy. Labs Labs: Laboratory Results - last 24 hr 09/21/24 09/21/24 04:04 11:19 WBC 6.2 RBC 4.78 Hgb 15.0 D Hct 45.2 MCV 94.6 MCH 31.4 MCHC 33.2 RDW 13.7 Plt Count 144 L MPV 9.7 Immature Gran % (Auto) 0.3 Neut % (Auto) 72.8 Lymph % (Auto) 13.4 L [place] % (Auto) 11.7 H Eos % (Auto) 1.3 Baso % (Auto) 0.5 Lymph # (Auto) 0.83 L [place] # (Auto) 0.7 H Eos # (Auto) 0.1 Baso # (Auto) 0.0 Abs Immat Gran (auto) 0.02 Absolute Neuts (auto) 4.5 Absolute Nucleated RBC 0.000 Nucleated RBC % 0.0 APTT 37.6 H > 200.0 H* Quality VTE Prophylaxis VTE prophylaxis: mechanical ordered and pharmacologic ordered Hospitalist MIPS Advance Care Plan I have confirmed that the patient's Advanced Care Plan is present, code status is documented, or surrogate decision maker is listed in patient medical record.: Yes Medication Reconciliation I have utilized all available resources to obtain, update and review the patients current medications (includes all prescriptions, OTC, herbals, cannabis, and nutritional supplements).: Yes
[2024-09-21 18:26] LABS: Partial Thromboplastin Time 59.4 Seconds (22.3-36.8)
[2024-09-21] MEDS: HEPARIN SODIUM 5,000 UNITS/ML VIAL 3500 UNITS IV PUSH (18:30)
[2024-09-21] MEDS: METOPROLOL TARTRATE 25 MG TABLET PO (20:03)
[2024-09-21] MEDS: HEPARIN SOD/D5W 100 UNITS/ML 25,000 UNITS/250 ML BAG 12 UNITS IV CONT (21:45)
[2024-09-22] VITALS (21 sets, daily range): BP systolic 87–107; BP diastolic 53–80; PULSE 64–105; RESP 12–22; TEMP 36.5–37.2; O2SAT 91–100
[2024-09-22 02:23] LABS: Partial Thromboplastin Time > 200.0 Seconds (22.3-36.8)
[2024-09-22 09:52] LABS: Partial Thromboplastin Time 70.5 Seconds (22.3-36.8)
[2024-09-22] MEDS: lisinopriL 10 MG TABLET PO (10:01)
[2024-09-22] MEDS: EZETIMIBE 10 MG TABLET PO (10:01)
[2024-09-22] MEDS: ASPIRIN 81 MG ENTERIC TABLET PO (10:01)
[2024-09-22] MEDS: ATORVASTATIN 40 MG TABLET 80 MG PO ×2 (10:01→22:24)
[2024-09-22] MEDS: METOPROLOL TARTRATE 25 MG TABLET PO ×2 (10:02→22:25)
[2024-09-22] MEDS: HEPARIN SODIUM 5,000 UNITS/ML VIAL 3500 UNITS IV PUSH (10:29)
[2024-09-22] MEDS: HEPARIN SOD/D5W 100 UNITS/ML 25,000 UNITS/250 ML BAG 11 UNITS IV CONT (10:30)
--- NOTE | 2024-09-22 13:22 | PM.PNCARD ---
Progress Note: A&P Assessment and Plan (1) CAD (coronary artery disease): Code(s): I25.10 - Atherosclerotic heart disease of [place] coronary artery without angina pectoris Status: Acute Assessment and Plan: Discontinue heparin. Resume aspirin, atorvastatin 80 mg daily, cilostazol 50 mg p.o. b.i.d., metoprolol 25 mg p.o. q.12 hours, lisinopril 10 mg daily and Jardiance and ezetimibe. Also recommend resuming low-dose Xarelto before discharge after surgery. After surgery, would consider adding low-dose isosorbide mononitrate 30 mg daily (2) NSTEMI (non-ST elevated myocardial infarction): Code(s): I21.4 - Non-ST elevation (NSTEMI) myocardial infarction Status: Acute Assessment and Plan: Elevated troponins. Uncertain if this is related ACS at this point.? Pulmonary embolism. Workup per hospitalist. Discontinue heparin. Will need DVT prophylaxis starting tomorrow depending on surgery (3) Hyperlipidemia: Code(s): E78.5 - Hyperlipidemia, unspecified Status: Acute Assessment and Plan: Resume statin and ezetimibe (4) Hypertension: Code(s): I10 - Essential (primary) hypertension Status: Acute Assessment and Plan: Continue metoprolol, lisinopril Plan The remainder of his medications also be reconciled per hospitalist service Subjective Date/time seen: 09/22/24 13:22 Interval history: 53-year-old with known history of CAD admitted for chest pain and abdominal pain. Underwent coronary angiogram yesterday which showed patent grafts. Date of service 09/21/2024: Feels okay today without any chest pain but still has some epigastric/upper abdominal pain. This is better than yesterday. Date of service 09/22/2024: Still having abdominal pain. Seen by surgery. Appears plan is hepatobiliary scan tomorrow. No chest pain Review of Systems Constitutional: Constitutional: Denies body ache(s) ENT: Reports Normal hearing present Cardiovascular: Cardiovascular: Reports as per HPI, Denies chest pain and Denies dyspnea Respiratory: Respiratory: Reports as per HPI and Denies dyspnea Gastrointestinal: Gastrointestinal: Reports as per HPI and Reports abdominal pain Genitourinary: Genitourinary: Denies hematuria Musculoskeletal: Musculoskeletal: Denies back pain Integumentary/Breasts: Skin/Breast: Denies skin pain Neurologic: Reports Normal hearing present Exam Const: General: comfortable HENMT: Mouth: Yes moist mucous membranes Eyes: EOM: EOMs intact bilaterally Neck: Neck: no JVD Resp: Effort & Inspection: normal respiratory effort Auscultation: clear to auscultation bilaterally Cardio: Rate: regular rate and tachycardic Rhythm: regular rhythm Skin: Other: Right groin is free of hematoma ecchymosis or bruit Neuro: Cranial nerves: Yes Normal hearing present Speech: normal speech Extrem: General: no pedal edema Objective Data Vital Signs Vital Signs: Vital Signs - 24 hr 09/21/24 14:00 09/21/24 16:00 09/21/24 16:00 Temperature Pulse Rate 86 86 86 Respiratory Rate 18 Blood Pressure Pulse Oximetry 90 Oxygen Delivery Nasal Cannula Oxygen Flow Rate 2 Fraction of Inspired Oxygen 09/21/24 16:00 09/21/24 18:00 09/21/24 20:00 Temperature 36.7 C Pulse Rate 75 89 Respiratory Rate 18 Blood Pressure 115/68 Pulse Oximetry 98 93 Oxygen Delivery Nasal Cannula Oxygen Flow Rate 2 Fraction of Inspired Oxygen 09/21/24 20:00 09/21/24 20:03 09/21/24 20:13 Temperature 36.6 C Pulse Rate 81 80 81 Respiratory Rate 18 Blood Pressure 101/64 Pulse Oximetry 93 Oxygen Delivery Oxygen Flow Rate Fraction of Inspired Oxygen 09/21/24 22:00 09/21/24 23:29 09/22/24 00:00 Temperature 36.9 C Pulse Rate 72 68 Respiratory Rate 18 Blood Pressure 94/55 L Pulse Oximetry 98 95 Oxygen Delivery Nasal Cannula Oxygen Flow Rate 2 Fraction of Inspired Oxygen 09/22/24 00:00 09/22/24 02:00 09/22/24 03:48 Temperature 36.8 C Pulse Rate 70 64 66 Respiratory Rate 20 Blood Pressure 99/57 L Pulse Oximetry 98 Oxygen Delivery Oxygen Flow Rate Fraction of Inspired Oxygen 09/22/24 04:00 09/22/24 04:00 09/22/24 06:00 Temperature Pulse Rate 69 67 Respiratory Rate Blood Pressure Pulse Oximetry 93 Oxygen Delivery Nasal Cannula Oxygen Flow Rate 2 Fraction of Inspired Oxygen 09/22/24 07:47 09/22/24 07:51 09/22/24 07:52 Temperature 36.5 C 36.7 C 36.7 C Pulse Rate 70 71 74 Respiratory Rate 12 14 22 H Blood Pressure 95/80 L 107/69 87/61 L Pulse Oximetry 100 98 95 Oxygen Delivery Oxygen Flow Rate Fraction of Inspired Oxygen 09/22/24 08:00 09/22/24 08:00 09/22/24 09:12 Temperature Pulse Rate 104 H Respiratory Rate Blood Pressure Pulse Oximetry 100 96 Oxygen Delivery Nasal Cannula Nasal Cannula Oxygen Flow Rate 2 2 Fraction of Inspired Oxygen 09/22/24 10:00 09/22/24 10:02 09/22/24 11:43 Temperature Pulse Rate 105 H 104 H 103 H Respiratory Rate 22 H Blood Pressure Pulse Oximetry 96 Oxygen Delivery Nasal Cannula Oxygen Flow Rate 2 Fraction of Inspired Oxygen 09/22/24 11:43 09/22/24 11:49 09/22/24 13:16 Temperature 36.8 C Pulse Rate 104 H 79 79 Respiratory Rate 14 Blood Pressure 99/66 L Pulse Oximetry 92 Oxygen Delivery Oxygen Flow Rate Fraction of Inspired Oxygen Intake/Output Intake/Output: Intake & Output 09/19/24 09/20/24 09/21/24 09/22/24 23:59 23:59 23:59 23:59 Intake Total 487.8 740.0 1109 Output Total 900 1250 700 Balance -412.2 -510.0 409 Meds/Results Medications: Active Medications Generic Name Dose Route Start Last Admin Trade Name Freq PRN Reason Stop Dose Admin Acetaminophen 650 mg 09/20/24 06:34 09/21/24 20:03 Acetaminophen 325 Mg Tablet PO 650 mg Q4H PRN Administration Mild Pain (1-3) or Fever Hydrocodone Bitart/Acetaminophen 1 tab 09/22/24 11:29 Hydrocodone/Acetaminophen (*Crx) 5-325 Mg Tablet PO Q6H PRN Pain Rated 4-6 Albuterol 2.5 mg 09/22/24 11:31 Albuterol Sulfate Neb 2.5 Mg/3 Ml Inh INHALATION Q4H PRN shortness of breath or wheezing Aspirin 81 mg 09/22/24 09:00 09/22/24 10:01 Aspirin 81 Mg Enteric Tablet PO 81 mg QAM [place] Administration Atorvastatin Calcium 80 mg 09/22/24 18:00 Atorvastatin 40 Mg Tablet PO QPM [place] Cilostazol 50 mg 09/22/24 21:00 Cilostazol 50 Mg Tablet PO Q12HR [place] Ezetimibe 10 mg 09/23/24 09:00 Ezetimibe 10 Mg Tablet PO DAILY [facility] Heparin Sodium (Porcine) 4,000 units 09/20/24 06:22 09/21/24 05:15 Heparin Sodium 5,000 Units/Ml Vial IV PUSH 4,000 units PRN PRN Administration aPTT less than 55 seconds Heparin Sodium (Porcine) 3,500 units 09/20/24 06:22 09/22/24 10:29 Heparin Sodium 5,000 Units/Ml Vial IV PUSH 3,500 units PRN PRN Administration aPTT 55 - 70 seconds Hydromorphone HCl 1 mg 09/20/24 06:34 09/20/24 20:05 Hydromorphone Hcl Inj (*Crx) 1 Mg/Ml Syr IV PUSH 1 mg Q4H PRN Administration Pain Rated 7-10 Heparin Sodium/Dextrose 25,000 units in 250 mls @ 11 mls/hr 09/20/24 06:25 09/22/24 10:30 Heparin Sodium/D5w 100 Units/Ml IV CONT 1,100 units/hr .[id number] [place] 11 mls/hr Administration Protocol 1,100 UNITS/HR Lisinopril 10 mg 09/23/24 09:00 Lisinopril 10 Mg Tablet PO DAILY [facility] Metoprolol Tartrate 25 mg 09/22/24 21:00 Metoprolol Tartrate 25 Mg Tablet PO Q12HR [facility] Nitroglycerin 0.4 mg 09/20/24 10:25 Nitroglycerin Sl 0.4 Mg Tablet SUBLINGUAL Q5MIN PRN Chest Pain Pregabalin 25 mg 09/23/24 09:00 Pregabalin (*Crx) 25 Mg Capsule PO DAILY [facility] Tizanidine HCl 2 mg 09/22/24 11:31 Tizanidine Hcl 2 Mg Tablet PO Q12H PRN muscle spasticity Radiology Results: ITS Impressions Chest X-Ray 09/19/24 20:39 IMPRESSION: No acute cardiopulmonary process. Chest/Abdomen/Pelvis CTA 09/20/24 05:52 IMPRESSION: 1. Normal-sized gallbladder with gallstones and surrounding fat stranding suspicious for acute cholecystitis. 2. 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 3. 10 mm nodule in left lung lower lobe that measured 5 mm on 04/23/2015. This finding may be benign or malignant. Consider CT-guided biopsy. Abdomen Ultrasound 09/20/24 07:49 IMPRESSION: 1. Normal-sized gallbladder with gallstones and gallbladder wall thickening, but no sonographic Peres's sign. These findings are indeterminate for acute cholecystitis. Consider hepatobiliary scintigraphy. Labs Labs: Laboratory Results - last 24 hr 09/21/24 09/22/24 09/22/24 18:10 00:47 09:31 APTT 59.4 H > 200.0 H* 70.5 H
--- NOTE | 2024-09-22 13:27 | P.CONGS_ITS ---
Assessment and Plan Assessment and plan (1) Epigastric abdominal pain: Code(s): R10.13 - Epigastric pain Status: Acute Assessment and Plan: Very suspicious for cholecystitis. Particularly, the patient continues to have recurrence of pain with eating. Will get HIDA scan tomorrow. I suspect this will show either acute or chronic cholecystitis. If so, will plan to proceed with laparoscopic cholecystectomy on Monday09/24/2024. I described the procedure of laparoscopic cholecystectomy to the patient in detail. The risks, benefits, alternatives were discussed. The usual length of the surgery and recovery time was discussed. Will get HIDA scan tomorrow and further plans will be made. (2) Cholelithiasis: Qualifiers: Cholelithiasis location: gallbladder Cholecystitis presence: without cholecystitis Biliary obstruction: without biliary obstruction Qualified Code(s): K80.20 - Calculus of gallbladder without cholecystitis without obstruction Code(s): K80.20 - Calculus of gallbladder without cholecystitis without obstruction Status: Chronic Assessment and Plan: Suspect cholecystitis as well. Please see above. (3) NSTEMI (non-ST elevated myocardial infarction): Code(s): I21.4 - Non-ST elevation (NSTEMI) myocardial infarction Status: Acute Assessment and Plan: It appears heparin drip can be stopped and we can proceed with surgery as planned above. Patient can be on aspirin prior to surgery from my perspective. (4) CAD (coronary artery disease): Qualifiers: Coronary Disease-Associated Artery/Lesion type: [place] artery [place] vs. transplanted heart: [place] heart Associated angina: without angina Q ualified Code(s): I25.10 - Atherosclerotic heart disease of [place] coronary artery without angina pectoris Code(s): I25.10 - Atherosclerotic heart disease of [place] coronary artery without angina pectoris Status: Chronic Assessment and Plan: Recent cardiac catheterization shows no significant lesions requiring intervention. History of Present Illness Consult details Consult date: 09/22/24 Reason for consult: abdominal pain Requesting physician: Alo Dior MD Narrative: The patient is a 53-year-old man who has long history of coronary disease. He had coronary stents placed around 2012. He reports he had coronary bypass grafting in January of 2023. He reports that on Monday morning he had breakfast including sausage a eggs and biscuits. This was about 9:00 a.m.. At 10:00 a.m. he developed severe pressure-type pain in the epigastric and lower substernal area. He came to the emergency room and was evaluated for acute coronary syndrome. Cardiology felt that he was having NSTEMI and with his coronary history, cardiac catheterization was indicated. He had a cardiac catheterization that afternoon which did not show any new coronary disease. His bypass grafts were all patent. He was placed on IV heparin which appears to be able to be stopped today. He was taking aspirin and will be going back on his aspirin. As part of his imaging workup in the emergency room, he had a CTA of the chest abdomen and pelvis. This showed gallstones and some stranding around the gallbladder possibly consistent with cholecystitis. An ultrasound was also done and showed gallstones with mild gallbladder wall thickening but no sonographic Peres sign. Imaging findings felt to be indeterminate for cholecystitis. Following this testing on 09/20 patient has had recurrence of his epigastric pain after eating. He reports he has not been able to eat much due to the pain recurring. He is currently on a heart healthy diet. He has no family history of gallbladder disease. He has had no previous abdominal surgery. He is seen now in consultation regarding his gallstones and epigastric pain. 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 He quit tobacco 7 years ago after smoking 1 pack per day for 20 years. He drinks on average about 1 alcoholic drink per month. He uses medical marijuana about 10 mg at night. No history of drug use or IV drug use. Lives at home with his and 2 adult children. He is a full code. He nominates his to be the individual would make medical decisions for him if he is unable. Smoking packs per day: 1 Smoking cigarettes per day: 20.0 Years smoked: 20 Smoking pack-years: 20.00 Smoking status: Former smoker Tobacco type: cigarettes Second hand tobacco smoke exposure: No Smoking end date: 09/25/15 Alcohol intake: current Drinks per week: 1 Substance use: current Substance use type: marijuana Other substance usage details: marijuana, has medical card. infrequent use Do You Feel Safe in your Home?: Yes Lack of Transportation: No Lack of Food: Never True Current Housing: I Have Housing Concerned About Future Housing: No Difficulty Paying Gas/Electric Bills: No Difficulty Paying for Meds: No Currently Unemployed: No Education: Trade/Vocational Certificate Difficulty w/ Childcare or Family Care: No Spiritual care concerns: No Meds Home Medications and Allergies Home Medications ?Medication ?Instructions ?Recorded ?Confirmed ?Type ezetimibe 10 mg tablet (Zetia) 10 mg PO DAILY 01/02/23 09/20/24 History pregabalin 25 mg capsule (Lyrica) 25 mg PO DAILY 01/02/23 09/20/24 History albuterol 90 mcg/actuation aerosol 90 mcg inhalation PRN 03/04/23 09/20/24 History inhaler lisinopril 10 mg tablet 10 mg PO DAILY 03/04/23 09/20/24 History aspirin 81 mg chewable tablet 81 mg PO DAILY@0800 #30 tabs 03/07/23 09/20/24 Rx ([facility] Aspirin) nitroglycerin 0.4 mg sublingual 0.4 mg sublingual Q5M PRN chest 03/07/23 09/20/24 Rx tablet pain #10 tabs albuterol sulfate 2.5 mg/3 mL 2.5 mg inhalation Q4H PRN 09/20/24 09/20/24 History (0.083 %) solution for nebulization shortness of breath or wheezing albuterol sulfate 90 mcg/actuation 2 puff inhalation Q4H PRN 09/20/24 09/20/24 History aerosol inhaler shortness of breath or wheezing atorvastatin 80 mg tablet 80 mg PO QPM 09/20/24 09/20/24 History buprenorphine HCl 75 mcg buccal 75 mcg buccal Q12H 09/20/24 09/20/24 History film ([place]) cilostazol 50 mg tablet 50 mg PO Q12H 09/20/24 09/20/24 History empagliflozin 10 mg tablet 10 mg PO DAILY 09/20/24 09/20/24 History (Jardiance) furosemide 20 mg tablet 20 mg PO DAILY PRN edema 09/20/24 09/20/24 History ipratropium bromide 0.02 % 0.5 mg continuous nebulization Q4H 09/20/24 09/20/24 History solution for inhalation PRN shortness of breath or wheezing metoprolol tartrate 25 mg tablet 25 mg PO Q12H 09/20/24 09/20/24 History rivaroxaban 2.5 mg tablet (Xarelto) 2.5 mg PO BID 09/20/24 09/20/24 History tizanidine 2 mg tablet 2 mg PO Q12H PRN muscle spasticity 09/20/24 09/20/24 History Allergies Allergy/AdvReac Type Severity Reaction Status Date / Time cortisone Allergy Severe Anaphylactic Verified 09/20/24 08:33 Shock metronidazole (From Flagyl) Allergy Unknown Verified 09/20/24 08:33 Vital Signs Vital Signs - 24 hr 09/21/24 14:00 09/21/24 16:00 09/21/24 16:00 Temperature Pulse Rate 86 86 86 Respiratory Rate 18 Blood Pressure Pulse Oximetry 90 Oxygen Delivery Nasal Cannula Oxygen Flow Rate 2 Fraction of Inspired Oxygen 09/21/24 16:00 09/21/24 18:00 09/21/24 20:00 Temperature 36.7 C Pulse Rate 75 89 Respiratory Rate 18 Blood Pressure 115/68 Pulse Oximetry 98 93 Oxygen Delivery Nasal Cannula Oxygen Flow Rate 2 Fraction of Inspired Oxygen 09/21/24 20:00 09/21/24 20:03 09/21/24 20:13 Temperature 36.6 C Pulse Rate 81 80 81 Respiratory Rate 18 Blood Pressure 101/64 Pulse Oximetry 93 Oxygen Delivery Oxygen Flow Rate Fraction of Inspired Oxygen 09/21/24 22:00 09/21/24 23:29 09/22/24 00:00 Temperature 36.9 C Pulse Rate 72 68 Respiratory Rate 18 Blood Pressure 94/55 L Pulse Oximetry 98 95 Oxygen Delivery Nasal Cannula Oxygen Flow Rate 2 Fraction of Inspired Oxygen 09/22/24 00:00 09/22/24 02:00 09/22/24 03:48 Temperature 36.8 C Pulse Rate 70 64 66 Respiratory Rate 20 Blood Pressure 99/57 L Pulse Oximetry 98 Oxygen Delivery Oxygen Flow Rate Fraction of Inspired Oxygen 09/22/24 04:00 09/22/24 04:00 09/22/24 06:00 Temperature Pulse Rate 69 67 Respiratory Rate Blood Pressure Pulse Oximetry 93 Oxygen Delivery Nasal Cannula Oxygen Flow Rate 2 Fraction of Inspired Oxygen 09/22/24 07:47 09/22/24 07:51 09/22/24 07:52 Temperature 36.5 C 36.7 C 36.7 C Pulse Rate 70 71 74 Respiratory Rate 12 14 22 H Blood Pressure 95/80 L 107/69 87/61 L Pulse Oximetry 100 98 95 Oxygen Delivery Oxygen Flow Rate Fraction of Inspired Oxygen 09/22/24 08:00 09/22/24 08:00 09/22/24 09:12 Temperature Pulse Rate 104 H Respiratory Rate Blood Pressure Pulse Oximetry 100 96 Oxygen Delivery Nasal Cannula Nasal Cannula Oxygen Flow Rate 2 2 Fraction of Inspired Oxygen 09/22/24 10:00 09/22/24 10:02 09/22/24 11:43 Temperature Pulse Rate 105 H 104 H 103 H Respiratory Rate 22 H Blood Pressure Pulse Oximetry 96 Oxygen Delivery Nasal Cannula Oxygen Flow Rate 2 Fraction of Inspired Oxygen 09/22/24 11:43 09/22/24 11:49 09/22/24 13:16 Temperature 36.8 C Pulse Rate 104 H 79 79 Respiratory Rate 14 Blood Pressure 99/66 L Pulse Oximetry 92 Oxygen Delivery Oxygen Flow Rate Fraction of Inspired Oxygen Exam 2 Const: General: cooperative, comfortable, no acute distress, alert, awake and tired appearing Nutritional Appearance: overweight O rientation/consciousness: patient oriented x3 and No confusion HENMT: Head: normocephalic and atraumatic Mouth: Yes Normal oral and palatal mucosa present Eyes: Conjunctivae: conjunctivae normal Pupils: Equal, round and reactive pupils present EOM: EOMs intact bilaterally Neck: Neck: normal visual inspection, no lymphadenopathy and nontender Chest: Chest palpation & inspection: abnormal inspection of the chest (Median sternotomy scar), no crepitus, no localized rib tenderness, no tenderness and No rash Resp: Effort & Inspection: normal respiratory effort Auscultation: clear to auscultation bilaterally Cardio: Rate: regular rate Rhythm: regular rhythm Heart sounds: no gallops, no murmurs and no rubs GI: Inspection: normal to inspection, non-distended, obesity and no visible herniation GI Palp: Yes Soft to palpation, Yes Tenderness to palpation present (GI) (Mild epigastric and right upper quadrant tenderness), No Guarding due to palpation present (GI), No Hepatomegaly present, No Splenomegaly present, No Hernia present, No Palpable mass present and No Rebound tenderness present Auscultation: normal bowel sounds Skin: Lesions: no lesions Rashes: no rashes Neuro: General: no focal motor deficits and CN's II-XI intact bilaterally C ranial nerves: Yes Equal, round and reactive pupils present, Yes Bilaterally intact EOM present, Yes facial symmetry and Yes Midline tongue present S peech: normal speech Motor exam (neuro): 5/5 motor strength present throughout and Motor abnormalities not present Extrem: General: no clubbing, cyanosis or edema and edema Psych: Affect: normal affect Thought process: Normal thought process present Insight: Good insight present (Psych) Results Labs 09/21/24 04:04 09/19/24 19:57 Labs: Abnormal lab results 09/21/24 09/22/24 09/22/24 Range/Units 18:10 00:47 09:31 APTT 59.4 H > 200.0 H* 70.5 H (22.3-36.8) Seconds All other labs normal. Imaging Chest x-ray: report reviewed and image reviewed Abdomen CT scan report/results: report reviewed and image reviewed CT scan - chest: report reviewed and image reviewed CT scan - pelvis: report reviewed and image reviewed Abdominal ultrasound report/results: report reviewed
--- NOTE | 2024-09-22 15:10 | PM.IMPN ---
Progress Note: A&P Assessment and Plan (1) NSTEMI (non-ST elevated myocardial infarction): Code(s): I21.4 - Non-ST elevation (NSTEMI) myocardial infarction Status: Acute Assessment and Plan: - Initial EKG: SR with 1st degree block. - Repeat EKG: ST with RBB, cannot r/o antereseptal NH. - Troponin trended up; 0.202>>0.238 - Seen by Cardiology and pt s/p cardiac cath with no interventions. - Patient on heparin drip for now per cardiology, pending possible Lap Shana. - Patient on asirin, metoprolol, lisinopril. - We'll restart aspirin if no surgery plan. - Continue tele monitoring. (2) ACS (acute coronary syndrome): Code(s): I24.9 - Acute ischemic heart disease, unspecified Status: Acute Assessment and Plan: - Mgt as # 1. - Seen by Cardiology. - s/p cardiac cath without interventions. - Continue tele monitoring. (3) Cholelithiasis: Qualifiers: Cholelithiasis location: gallbladder Cholecystitis presence: without cholecystitis Biliary obstruction: without biliary obstruction Qualified Code(s): K80.20 - Calculus of gallbladder without cholecystitis without obstruction Code(s): K80.20 - Calculus of gallbladder without cholecystitis without obstruction Status: Chronic Assessment and Plan: - Patient reporting recurrent epigastric pain. - US abd: gallstones and gallbladder wall thickening. - General surgery consulted and pt scheduled for HIDA scan in AM. - Further w/u pending HIDA scan results. - Continue pain and nausea meds PRN. (4) LV dysfunction: Code(s): I51.9 - Heart disease, unspecified Status: Acute Assessment and Plan: - Appears stable for now. - TT ECHO reviewed with no significant abnormalities noted. - Continue metoprolol and Lisinopril. (5) COPD (chronic obstructive pulmonary disease): Code(s): J44.9 - Chronic obstructive pulmonary disease, unspecified Status: Acute Assessment and Plan: - Appears compensated. - Bronchodilators as needed. (6) Hypertension: Code(s): I10 - Essential (primary) hypertension Status: Acute Assessment and Plan: - Appears well controlled for now. - Continue current meds. Plan Awaiting to see general surgery. Time Spent With Patient Time with patient: 15 - 25 minutes Subjective Date/time seen: 09/22/24 10:10 Patient states he still has epigastric pain and appears to be same. Interval history: Patient calm sitting on chair and looks to be in no acute distress. Review of Systems Review of Systems: All systems reviewed & are unremarkable except as noted in HPI and below Exam Narrative: General: Fair appearing, no acute distress. HEENT: Atraumatic, PERRL, EOM, moist mucosa. NECK: Supple. Lungs: Clear bilaterally. Heart: RRR, no murmurs. Abdomen: Soft, non-tender, obese, +ve sounds X4 quadrants. Extremities: Acyanotic, no edema. Skin: Warm and dry with no lesions. Neuro: Well oriented. CN II-XII with no focal deficits. Psych: Pleasant and co-operative. Objective Data Vital Signs Vital Signs: Vital Signs - 24 hr 09/21/24 16:00 09/21/24 16:00 09/21/24 16:00 Temperature 98.0 F Pulse Rate 86 86 75 Respiratory Rate 18 18 Blood Pressure 115/68 Pulse Oximetry 90 98 Oxygen Delivery Nasal Cannula Oxygen Flow Rate 2 Fraction of Inspired Oxygen 09/21/24 18:00 09/21/24 20:00 09/21/24 20:00 Temperature Pulse Rate 89 81 Respiratory Rate Blood Pressure Pulse Oximetry 93 Oxygen Delivery Nasal Cannula Oxygen Flow Rate 2 Fraction of Inspired Oxygen 09/21/24 20:03 09/21/24 20:13 09/21/24 22:00 Temperature 98 F Pulse Rate 80 81 72 Respiratory Rate 18 Blood Pressure 101/64 Pulse Oximetry 93 Oxygen Delivery Oxygen Flow Rate Fraction of Inspired Oxygen 09/21/24 23:29 09/22/24 00:00 09/22/24 00:00 Temperature 98.4 F Pulse Rate 68 70 Respiratory Rate 18 Blood Pressure 94/55 L Pulse Oximetry 98 95 Oxygen Delivery Nasal Cannula Oxygen Flow Rate 2 Fraction of Inspired Oxygen 09/22/24 02:00 09/22/24 03:48 09/22/24 04:00 Temperature 98.2 F Pulse Rate 64 66 Respiratory Rate 20 Blood Pressure 99/57 L Pulse Oximetry 98 93 Oxygen Delivery Nasal Cannula Oxygen Flow Rate 2 Fraction of Inspired Oxygen 09/22/24 04:00 09/22/24 06:00 09/22/24 07:47 Temperature 97.7 F Pulse Rate 69 67 70 Respiratory Rate 12 Blood Pressure 95/80 L Pulse Oximetry 100 Oxygen Delivery Oxygen Flow Rate Fraction of Inspired Oxygen 09/22/24 07:51 09/22/24 07:52 09/22/24 08:00 Temperature 98.0 F 98.0 F Pulse Rate 71 74 Respiratory Rate 14 22 H Blood Pressure 107/69 87/61 L Pulse Oximetry 98 95 100 Oxygen Delivery Nasal Cannula Oxygen Flow Rate 2 Fraction of Inspired Oxygen 09/22/24 08:00 09/22/24 09:12 09/22/24 10:00 Temperature Pulse Rate 104 H 105 H Respiratory Rate Blood Pressure Pulse Oximetry 96 Oxygen Delivery Nasal Cannula Oxygen Flow Rate 2 Fraction of Inspired Oxygen 09/22/24 10:02 09/22/24 11:43 09/22/24 11:43 Temperature Pulse Rate 104 H 103 H 104 H Respiratory Rate 22 H Blood Pressure Pulse Oximetry 96 Oxygen Delivery Nasal Cannula Oxygen Flow Rate 2 Fraction of Inspired Oxygen 09/22/24 11:49 09/22/24 13:16 Temperature 98.3 F Pulse Rate 79 79 Respiratory Rate 14 Blood Pressure 99/66 L Pulse Oximetry 92 Oxygen Delivery Oxygen Flow Rate Fraction of Inspired Oxygen Intake/Output Intake/Output: Intake & Output 09/19/24 09/20/24 09/21/24 09/22/24 23:59 23:59 23:59 23:59 Intake Total 487.8 740.0 1109 Output Total 900 1250 700 Balance -412.2 -510.0 409 Meds/Results Medications: Active Medications Generic Name Dose Route Start Last Admin Trade Name Freq PRN Reason Stop Dose Admin Acetaminophen 650 mg 09/20/24 06:34 09/21/24 20:03 Acetaminophen 325 Mg Tablet PO 650 mg Q4H PRN Administration Mild Pain (1-3) or Fever Hydrocodone Bitart/Acetaminophen 1 tab 09/22/24 11:29 Hydrocodone/Acetaminophen (*Crx) 5-325 Mg Tablet PO Q6H PRN Pain Rated 4-6 Albuterol 2.5 mg 09/22/24 11:31 Albuterol Sulfate Neb 2.5 Mg/3 Ml Inh INHALATION Q4H PRN shortness of breath or wheezing Aspirin 81 mg 09/22/24 09:00 09/22/24 10:01 Aspirin 81 Mg Enteric Tablet PO 81 mg QAM [place] Administration Atorvastatin Calcium 80 mg 12/29/24 18:00 Atorvastatin 40 Mg Tablet PO QPM [place] Cilostazol 50 mg 09/22/24 21:00 Cilostazol 50 Mg Tablet PO Q12HR [facility] Ezetimibe 10 mg 09/23/24 09:00 Ezetimibe 10 Mg Tablet PO DAILY [facility] Hydromorphone HCl 1 mg 09/20/24 06:34 09/20/24 20:05 Hydromorphone Hcl Inj (*Crx) 1 Mg/Ml Syr IV PUSH 1 mg Q4H PRN Administration Pain Rated 7-10 Lisinopril 10 mg 09/23/24 09:00 Lisinopril 10 Mg Tablet PO DAILY [facility] Metoprolol Tartrate 25 mg 09/22/24 21:00 Metoprolol Tartrate 25 Mg Tablet PO Q12HR [facility] Nitroglycerin 0.4 mg 09/20/24 10:25 Nitroglycerin Sl 0.4 Mg Tablet SUBLINGUAL Q5MIN PRN Chest Pain Pregabalin 25 mg 09/23/24 09:00 Pregabalin (*Crx) 25 Mg Capsule PO DAILY [facility] Tizanidine HCl 2 mg 09/22/24 11:31 Tizanidine Hcl 2 Mg Tablet PO Q12H PRN muscle spasticity Radiology Results: ITS Impressions Chest X-Ray 09/19/24 20:39 IMPRESSION: No acute cardiopulmonary process. Chest/Abdomen/Pelvis CTA 09/20/24 05:52 IMPRESSION: 1. Normal-sized gallbladder with gallstones and surrounding fat stranding suspicious for acute cholecystitis. 2. 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 3. 10 mm nodule in left lung lower lobe that measured 5 mm on 04/23/2015. This finding may be benign or malignant. Consider CT-guided biopsy. Abdomen Ultrasound 09/20/24 07:49 IMPRESSION: 1. Normal-sized gallbladder with gallstones and gallbladder wall thickening, but no sonographic Peres's sign. These findings are indeterminate for acute cholecystitis. Consider hepatobiliary scintigraphy. Labs Labs: Laboratory Results - last 24 hr 09/21/24 09/22/24 09/22/24 18:10 00:47 09:31 APTT 59.4 H > 200.0 H* 70.5 H Quality VTE Prophylaxis VTE prophylaxis: mechanical ordered and pharmacologic ordered Hospitalist [facility] Advance Care Plan I have confirmed that the patient's Advanced Care Plan is present, code status is documented, or surrogate decision maker is listed in patient medical record.: Yes Medication Reconciliation I have utilized all available resources to obtain, update and review the patients current medications (includes all prescriptions, OTC, herbals, cannabis, and nutritional supplements).: Yes
[2024-09-22 16:41] LABS: Partial Thromboplastin Time 30.5 Seconds (22.3-36.8)
[2024-09-22] MEDS: HYDROcodone/acetaminophen (*CRX) 5-325 MG TABLET 1 TAB PO ×2 (17:36→22:58)
[2024-09-22] MEDS: cilostazoL 50 MG TABLET PO (22:25)
[2024-09-23] VITALS (13 sets, daily range): BP systolic 96–118; BP diastolic 58–72; PULSE 63–87; RESP 14–20; TEMP 36.6–37.1; O2SAT 92–96
[2024-09-23] MEDS: ASPIRIN 81 MG ENTERIC TABLET PO (09:14)
[2024-09-23] MEDS: EZETIMIBE 10 MG TABLET PO (09:14)
[2024-09-23] MEDS: METOPROLOL TARTRATE 25 MG TABLET PO ×2 (09:14→20:14)
[2024-09-23] MEDS: cilostazoL 50 MG TABLET PO ×2 (09:15→20:15)
[2024-09-23] MEDS: lisinopriL 10 MG TABLET PO (09:15)
[2024-09-23] MEDS: PREGABALIN (*CRX) 25 MG CAPSULE PO (09:15)
--- NOTE | 2024-09-23 11:24 | P.PNGS_ITS ---
Progress Note: A&P Assessment and Plan (1) Epigastric abdominal pain: Code(s): R10.13 - Epigastric pain Status: Acute Assessment and Plan: HIDA scan ordered today to evaluate for cholecystitis. If this shows either acute or chronic cholecystitis, then we will plan to proceed with a laparoscopic cholecystectomy by Dr. Martínez tomorrow. Will discuss HIDA results with the patient later today. (2) Cholelithiasis: Qualifiers: Cholelithiasis location: gallbladder Cholecystitis presence: without cholecystitis Biliary obstruction: without biliary obstruction Qualified Code(s): K80.20 - Calculus of gallbladder without cholecystitis without obstruction Code(s): K80.20 - Calculus of gallbladder without cholecystitis without obstruction Status: Chronic Assessment and Plan: Suspect cholecystitis, HIDA scan ordered today. See plan above. (3) NSTEMI (non-ST elevated myocardial infarction): Code(s): I21.4 - Non-ST elevation (NSTEMI) myocardial infarction Status: Acute Assessment and Plan: Underwent coronary angiogram which showed patent grafts. Heparin infusion has been stopped, and aspirin resumed per Cardiology. (4) CAD (coronary artery disease): Qualifiers: Coronary Disease-Associated Artery/Lesion type: [place] artery [place] vs. transplanted heart: [place] heart Associated angina: without angina Qualified Code(s): I25.10 - Atherosclerotic heart disease of [place] coronary artery without angina pectoris Code(s): I25.10 - Atherosclerotic heart disease of [place] coronary artery without angina pectoris Status: Chronic Plan I have discussed the patient's case and plan of care with Dr. Martínez. Subjective Subjective Date/Time Seen: 09/23/24 11:24 Patient reports: no new complaints and afebrile Interval history: Chart reviewed. Reports his abdominal pain is better today, although he has not eaten anything and is NPO for the HIDA scan. Denies any nausea or other specific complaints at the time of my exam. Exam Const: General: comfortable and no acute distress GI: Inspection: non-distended GI Palp: Yes Soft to palpation, Yes Tenderness to palpation present (GI) (mild RUQ and epigastric tenderness), No Guarding due to palpation present (GI), Yes No hepatosplenomegaly present and No Rebound tenderness present Auscultation: normal bowel sounds Objective Data Vital Signs Vital Signs: Vital Signs - 24 hr 09/22/24 11:43 09/22/24 11:43 09/22/24 11:49 Temperature 98.3 F Pulse Rate 103 H 104 H 79 Respiratory Rate 22 H 14 Blood Pressure 99/66 L Pulse Oximetry 96 92 Oxygen Delivery Nasal Cannula Oxygen Flow Rate 2 Fraction of Inspired Oxygen 09/22/24 13:16 09/22/24 16:00 09/22/24 16:00 Temperature Pulse Rate 79 79 Respiratory Rate Blood Pressure Pulse Oximetry 99 Oxygen Delivery Nasal Cannula Oxygen Flow Rate 2 Fraction of Inspired Oxygen 09/22/24 16:00 09/22/24 20:00 09/22/24 20:00 Temperature 98.9 F Pulse Rate 87 70 Respiratory Rate 20 Blood Pressure 100/63 Pulse Oximetry 96 Oxygen Delivery Room Air Oxygen Flow Rate Fraction of Inspired Oxygen 09/22/24 20:27 09/22/24 22:00 09/22/24 22:25 Temperature 98.9 F Pulse Rate 73 68 82 Respiratory Rate 18 Blood Pressure 96/61 L Pulse Oximetry 91 Oxygen Delivery Oxygen Flow Rate Fraction of Inspired Oxygen 09/22/24 22:25 09/22/24 23:43 09/23/24 00:00 Temperature 98.9 F Pulse Rate 73 Respiratory Rate 18 Blood Pressure 103/59 L 93/53 L Pulse Oximetry 93 Oxygen Delivery Room Air Oxygen Flow Rate Fraction of Inspired Oxygen 09/23/24 00:00 09/23/24 02:00 09/23/24 04:00 Temperature Pulse Rate 71 74 Respiratory Rate Blood Pressure Pulse Oximetry Oxygen Delivery Room Air Oxygen Flow Rate Fraction of Inspired Oxygen 09/23/24 04:00 09/23/24 06:00 09/23/24 06:03 Temperature 98.8 F Pulse Rate 84 68 63 Respiratory Rate 18 Blood Pressure 118/72 Pulse Oximetry 94 Oxygen Delivery Oxygen Flow Rate Fraction of Inspired Oxygen 09/23/24 08:00 09/23/24 08:00 09/23/24 08:00 Temperature 98.0 F Pulse Rate 68 71 Respiratory Rate 20 Blood Pressure 103/64 Pulse Oximetry 96 96 Oxygen Delivery Room Air Oxygen Flow Rate Fraction of Inspired Oxygen 09/23/24 10:00 Temperature Pulse Rate 73 Respiratory Rate Blood Pressure Pulse Oximetry Oxygen Delivery Oxygen Flow Rate Fraction of Inspired Oxygen Intake/Output Intake/Output: Intake & Output 09/20/24 09/21/24 09/22/24 09/23/24 23:59 23:59 23:59 23:59 Intake Total 487.8 740.0 1469 600 Output Total 900 1250 700 800 Balance -412.2 -510.0 769 -200 Meds/Results Medications: Active Medications Generic Name Dose Route Start Last Admin Trade Name Freq PRN Reason Stop Dose Admin Acetaminophen 650 mg 09/20/24 06:34 09/21/24 20:03 Acetaminophen 325 Mg Tablet PO 650 mg Q4H PRN Administration Mild Pain (1-3) or Fever Hydrocodone Bitart/Acetaminophen 1 tab 09/22/24 11:29 09/22/24 22:58 Hydrocodone/Acetaminophen (*Crx) 5-325 Mg Tablet PO 1 tab Q6H PRN Administration Pain Rated 4-6 Albuterol 2.5 mg 09/22/24 11:31 Albuterol Sulfate Neb 2.5 Mg/3 Ml Inh INHALATION Q4H PRN shortness of breath or wheezing Aspirin 81 mg 09/22/24 09:00 09/23/24 09:14 Aspirin 81 Mg Enteric Tablet PO 81 mg QAM [place] Administration Atorvastatin Calcium 80 mg 09/22/24 21:00 09/22/24 22:24 Atorvastatin 40 Mg Tablet PO 80 mg QPM [place] Administration Cilostazol 50 mg 09/22/24 21:00 09/23/24 09:15 Cilostazol 50 Mg Tablet PO 50 mg Q12HR [place] Administration Ezetimibe 10 mg 09/23/24 09:00 09/23/24 09:14 Ezetimibe 10 Mg Tablet PO 10 mg DAILY [place] Administration Hydromorphone HCl 1 mg 09/20/24 06:34 09/20/24 20:05 Hydromorphone Hcl Inj (*Crx) 1 Mg/Ml Syr IV PUSH 1 mg Q4H PRN Administration Pain Rated 7-10 Lisinopril 10 mg 09/23/24 09:00 09/23/24 09:15 Lisinopril 10 Mg Tablet PO 10 mg DAILY [place] Administration Metoprolol Tartrate 25 mg 09/22/24 21:00 09/23/24 09:14 Metoprolol Tartrate 25 Mg Tablet PO 25 mg Q12HR [place] Administration Nitroglycerin 0.4 mg 09/20/24 10:25 Nitroglycerin Sl 0.4 Mg Tablet SUBLINGUAL Q5MIN PRN Chest Pain Pregabalin 25 mg 09/23/24 09:00 09/23/24 09:15 Pregabalin (*Crx) 25 Mg Capsule PO 25 mg DAILY [place] Administration Tizanidine HCl 2 mg 09/22/24 11:31 Tizanidine Hcl 2 Mg Tablet PO Q12H PRN muscle spasticity Radiology Results: ITS Impressions Chest X-Ray 09/19/24 20:39 IMPRESSION: No acute cardiopulmonary process. Chest/Abdomen/Pelvis CTA 09/20/24 05:52 IMPRESSION: 1. Normal-sized gallbladder with gallstones and surrounding fat stranding suspicious for acute cholecystitis. 2. 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 3. 10 mm nodule in left lung lower lobe that measured 5 mm on 04/23/2015. This finding may be benign or malignant. Consider CT-guided biopsy. Abdomen Ultrasound 09/20/24 07:49 IMPRESSION: 1. Normal-sized gallbladder with gallstones and gallbladder wall thickening, but no sonographic Peres's sign. These findings are indeterminate for acute cholecystitis. Consider hepatobiliary scintigraphy. Labs Labs: Laboratory Results - last 24 hr 09/22/24 16:18 APTT 30.5
[2024-09-23] MEDS: HYDROcodone/acetaminophen (*CRX) 5-325 MG TABLET 1 TAB PO ×2 (13:40→23:34)
[2024-09-23 14:52] LABS: Amylase 55 U/L (30-110); Lipase 55 U/L (23-300)
[2024-09-23 14:53] LABS: Alanine Aminotransferase 47 U/L (6-50); Albumin Level 3.8 g/dL (3.5-5.1); Alkaline Phosphatase 66 U/L (38-126); Anion Gap 1 mmol/L (4-12); Aspartate Amino Transferase 30 U/L (17-59); Bilirubin,Total 0.7 mg/dL (0.2-1.3); Blood Urea Nitrogen 13 mg/dL (9-20); Calcium 8.7 mg/dL (8.4-10.2); Carbon Dioxide 31 mmol/L (22-30); Chloride 105 mmol/L (98-107); Estimated CRCL calculation 97 ml/min; Estimated Glomerular Filt Rate > 60; Glucose 122 mg/dL (65-110); Sodium 137 mmol/L (137-145)
--- NOTE | 2024-09-23 16:20 | PM.IMPN ---
Progress Note: A&P Assessment and Plan (1) NSTEMI (non-ST elevated myocardial infarction): Code(s): I21.4 - Non-ST elevation (NSTEMI) myocardial infarction Status: Acute Assessment and Plan: - Initial EKG: SR with 1st degree block. - Repeat EKG: ST with RBB, cannot r/o antereseptal [place]. - Troponin trended up; 0.202>>0.238 - Seen by Cardiology and pt s/p cardiac cath with no interventions. - Patient on asirin, metoprolol, lisinopril. - Aspirin held for now with possible Lap Shana. - Continue tele monitoring. (2) ACS (acute coronary syndrome): Code(s): I24.9 - Acute ischemic heart disease, unspecified Status: Acute Assessment and Plan: - Mgt as # 1. - Seen by Cardiology. - s/p cardiac cath without interventions. - Continue tele monitoring. (3) Cholelithiasis: Qualifiers: Cholelithiasis location: gallbladder Cholecystitis presence: without cholecystitis Biliary obstruction: without biliary obstruction Qualified Code(s): K80.20 - Calculus of gallbladder without cholecystitis without obstruction Code(s): K80.20 - Calculus of gallbladder without cholecystitis without obstruction Status: Chronic Assessment and Plan: - Patient still reporting recurrent epigastric pain. - US abd: gallstones and gallbladder wall thickening. - HIDA Scan: - Aspirin held for now with possible Lap Shana. - Possibly surgery in AM per general surgery. - Continue pain and nausea meds PRN. (4) LV dysfunction: Code(s): I51.9 - Heart disease, unspecified Status: Acute Assessment and Plan: - Appears stable for now. - TT ECHO reviewed with no significant abnormalities noted. - Continue metoprolol and Lisinopril. (5) COPD (chronic obstructive pulmonary disease): Code(s): J44.9 - Chronic obstructive pulmonary disease, unspecified Status: Acute Assessment and Plan: - Appears compensated. - Bronchodilators as needed. (6) Hypertension: Code(s): I10 - Essential (primary) hypertension Status: Acute Assessment and Plan: - Appears well controlled for now. - Continue current meds. Plan Awaiting to see general surgery. Time Spent With Patient Time with patient: 15 - 25 minutes Subjective Date/time seen: 09/23/24 11:20 Interval history: Patient calm sitting on chair and looks to be in no acute distress. Review of Systems Review of Systems: All systems reviewed & are unremarkable except as noted in HPI and below Exam Narrative: General: Fair appearing, no acute distress. HEENT: Atraumatic, PERRL, EOM, moist mucosa. NECK: Supple. Lungs: Clear bilaterally. Heart: RRR, no murmurs. Abdomen: Soft, non-tender, obese, +ve sounds X4 quadrants. Extremities: Acyanotic, no edema. Skin: Warm and dry with no lesions. Neuro: Well oriented. CN II-XII with no focal deficits. Psych: Pleasant and co-operative. Objective Data Vital Signs Vital Signs: Vital Signs - 24 hr 09/22/24 20:00 09/22/24 20:00 09/22/24 20:27 Temperature 98.9 F Pulse Rate 70 73 Respiratory Rate 18 Blood Pressure 96/61 L Pulse Oximetry 91 Oxygen Delivery Room Air 09/22/24 22:00 09/22/24 22:25 09/22/24 22:25 Temperature Pulse Rate 68 82 Respiratory Rate Blood Pressure 103/59 L Pulse Oximetry Oxygen Delivery 09/22/24 23:43 09/23/24 00:00 09/23/24 00:00 Temperature 98.9 F Pulse Rate 73 71 Respiratory Rate 18 Blood Pressure 93/53 L Pulse Oximetry 93 Oxygen Delivery Room Air 09/23/24 02:00 09/23/24 04:00 09/23/24 04:00 Temperature Pulse Rate 74 84 Respiratory Rate Blood Pressure Pulse Oximetry Oxygen Delivery Room Air 09/23/24 06:00 09/23/24 06:03 09/23/24 08:00 Temperature 98.8 F 98.0 F Pulse Rate 68 63 68 Respiratory Rate 18 20 Blood Pressure 118/72 103/64 Pulse Oximetry 94 96 Oxygen Delivery 09/23/24 08:00 09/23/24 08:00 09/23/24 10:00 Temperature Pulse Rate 71 73 Respiratory Rate Blood Pressure Pulse Oximetry 96 Oxygen Delivery Room Air 09/23/24 12:00 09/23/24 12:00 09/23/24 12:00 Temperature 98.0 F Pulse Rate 64 63 Respiratory Rate 16 Blood Pressure 96/62 L Pulse Oximetry 96 96 Oxygen Delivery Room Air 09/23/24 14:00 Temperature Pulse Rate 70 Respiratory Rate Blood Pressure Pulse Oximetry Oxygen Delivery Intake/Output Intake/Output: Intake & Output 09/20/24 09/21/24 09/22/24 09/23/24 23:59 23:59 23:59 23:59 Intake Total 487.8 740.0 1469 600 Output Total 900 1250 700 800 Balance -412.2 -510.0 769 -200 Meds/Results Medications: Active Medications Generic Name Dose Route Start Last Admin Trade Name Freq PRN Reason Stop Dose Admin Acetaminophen 650 mg 09/20/24 06:34 09/21/24 20:03 Acetaminophen 325 Mg Tablet PO 650 mg Q4H PRN Administration Mild Pain (1-3) or Fever Hydrocodone Bitart/Acetaminophen 1 tab 09/22/24 11:29 09/23/24 13:40 Hydrocodone/Acetaminophen (*Crx) 5-325 Mg Tablet PO 1 tab Q6H PRN Administration Pain Rated 4-6 Albuterol 2.5 mg 09/22/24 11:31 Albuterol Sulfate Neb 2.5 Mg/3 Ml Inh INHALATION Q4H PRN shortness of breath or wheezing Aspirin 81 mg 09/22/24 09:00 09/23/24 09:14 Aspirin 81 Mg Enteric Tablet PO 81 mg QAM [place] Administration Atorvastatin Calcium 80 mg 09/22/24 21:00 09/22/24 22:24 Atorvastatin 40 Mg Tablet PO 80 mg QPM [place] Administration Cilostazol 50 mg 09/22/24 21:00 09/23/24 09:15 Cilostazol 50 Mg Tablet PO 50 mg Q12HR [place] Administration Ezetimibe 10 mg 09/23/24 09:00 09/23/24 09:14 Ezetimibe 10 Mg Tablet PO 10 mg DAILY [place] Administration Hydromorphone HCl 1 mg 09/20/24 06:34 09/20/24 20:05 Hydromorphone Hcl Inj (*Crx) 1 Mg/Ml Syr IV PUSH 1 mg Q4H PRN Administration Pain Rated 7-10 Lisinopril 10 mg 09/23/24 09:00 09/23/24 09:15 Lisinopril 10 Mg Tablet PO 10 mg DAILY [place] Administration Metoprolol Tartrate 25 mg 09/22/24 21:00 09/23/24 09:14 Metoprolol Tartrate 25 Mg Tablet PO 25 mg Q12HR [place] Administration Nitroglycerin 0.4 mg 09/20/24 10:25 Nitroglycerin Sl 0.4 Mg Tablet SUBLINGUAL Q5MIN PRN Chest Pain Pregabalin 25 mg 09/23/24 09:00 09/23/24 09:15 Pregabalin (*Crx) 25 Mg Capsule PO 25 mg DAILY [place] Administration Tizanidine HCl 2 mg 09/22/24 11:31 Tizanidine Hcl 2 Mg Tablet PO Q12H PRN muscle spasticity Radiology Results: ITS Impressions Chest X-Ray 09/19/24 20:39 IMPRESSION: No acute cardiopulmonary process. Chest/Abdomen/Pelvis CTA 09/20/24 05:52 IMPRESSION: 1. Normal-sized gallbladder with gallstones and surrounding fat stranding suspicious for acute cholecystitis. 2. 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 3. 10 mm nodule in left lung lower lobe that measured 5 mm on 04/23/2015. This finding may be benign or malignant. Consider CT-guided biopsy. Abdomen Ultrasound 09/20/24 07:49 IMPRESSION: 1. Normal-sized gallbladder with gallstones and gallbladder wall thickening, but no sonographic Peres's sign. These findings are indeterminate for acute cholecystitis. Consider hepatobiliary scintigraphy. Hepatobiliary Scan Nuclear Medicine 09/23/24 13:20 IMPRESSION: 1. No gallbladder activity which could be consistent with acute cholecystitis. Labs Labs: Laboratory Results - last 24 hr 09/22/24 09/23/24 16:18 14:30 APTT 30.5 Sodium 137 Potassium 4.0 Chloride 105 Carbon Dioxide 31 H Anion Gap 1 L BUN 13 Creatinine 0.90 Estim Creat Clear Calc 97 Estimated GFR > 60 Glucose 122 H Calcium 8.7 Total Bilirubin 0.7 AST 30 ALT 47 Alkaline Phosphatase 66 Total Protein 6.0 L Albumin 3.8 Amylase 55 Lipase 55 Quality VTE Prophylaxis VTE prophylaxis: mechanical ordered and pharmacologic ordered Hospitalist [facility] Advance Care Plan I have confirmed that the patient's Advanced Care Plan is present, code status is documented, or surrogate decision maker is listed in patient medical record.: Yes Medication Reconciliation I have utilized all available resources to obtain, update and review the patients current medications (includes all prescriptions, OTC, herbals, cannabis, and nutritional supplements).: Yes
[2024-09-23] MEDS: HYDROmorphone HCL INJ (*CRX) 1 MG/ML SYR IV PUSH (18:29)
[2024-09-23] MEDS: ATORVASTATIN 40 MG TABLET 80 MG PO (18:30)
[2024-09-24] VITALS (20 sets, daily range): BP systolic 104–162; BP diastolic 60–106; PULSE 58–727; RESP 11–24; TEMP 36.1–36.8; O2SAT 92–100
[2024-09-24] MEDS: METOPROLOL TARTRATE 25 MG TABLET PO ×2 (08:17→20:18)
[2024-09-24] MEDS: PREGABALIN (*CRX) 25 MG CAPSULE PO (08:17)
[2024-09-24] MEDS: HYDROcodone/acetaminophen (*CRX) 5-325 MG TABLET 1 TAB PO (09:35)
[2024-09-24] MEDS: ACETAMINOPHEN 500 MG TABLET 1000 MG PO (11:30)
--- NOTE | 2024-09-24 12:08 | WPDANESEPPF ---
Anes - Initial Pre Proc Eval Procedure: Operation Date: 09/24/24 12:30 Proposed Procedures p Laparoscopic Cholecystectomy - Omar Martínez MD Date/Time: 09/24/24 12:08 Surgeon: Mauricio Pre Op Diagnosis: Chest Pain/Elevated Troponin Patient Data Age: 53 Gender: M Height: 1.75 m Weight: 103 kg Last Vital Signs Temp 36.1 C L 09/24/24 11:30 Pulse 58 L 09/24/24 11:30 Resp 14 09/24/24 11:30 BP 104/60 09/24/24 11:30 Pulse Ox 95 09/24/24 11:30 O2 Del Method Room Air 09/24/24 11:30 O2 Flow Rate 2 09/22/24 16:00 FiO2 28 09/22/24 16:00 Allergies Allergy/AdvReac Type Severity Reaction Status Date / Time cortisone Allergy Severe Anaphylactic Verified 09/24/24 11:38 Shock metronidazole (From Flagyl) Allergy Unknown Verified 09/24/24 11:38 Home Medications ?Medication ?Instructions ?Recorded ?Confirmed ?Type ezetimibe 10 mg tablet (Zetia) 10 mg PO DAILY 01/02/23 09/20/24 History pregabalin 25 mg capsule (Lyrica) 25 mg PO DAILY 01/02/23 09/20/24 History albuterol 90 mcg/actuation aerosol 90 mcg inhalation PRN 03/04/23 09/20/24 History inhaler lisinopril 10 mg tablet 10 mg PO DAILY 03/04/23 09/20/24 History aspirin 81 mg chewable tablet 81 mg PO DAILY@0800 #30 tabs 03/07/23 09/20/24 Rx (Children's Aspirin) nitroglycerin 0.4 mg sublingual 0.4 mg sublingual Q5M PRN chest 03/07/23 09/20/24 Rx tablet pain #10 tabs albuterol sulfate 2.5 mg/3 mL 2.5 mg inhalation Q4H PRN 09/20/24 09/20/24 History (0.083 %) solution for nebulization shortness of breath or wheezing albuterol sulfate 90 mcg/actuation 2 puff inhalation Q4H PRN 09/20/24 09/20/24 History aerosol inhaler shortness of breath or wheezing atorvastatin 80 mg tablet 80 mg PO QPM 09/20/24 09/20/24 History buprenorphine HCl 75 mcg buccal 75 mcg buccal Q12H 09/20/24 09/20/24 History film (Belbuca) cilostazol 50 mg tablet 50 mg PO Q12H 09/20/24 09/20/24 History empagliflozin 10 mg tablet 10 mg PO DAILY 09/20/24 09/20/24 History (Jardiance) furosemide 20 mg tablet 20 mg PO DAILY PRN edema 09/20/24 09/20/24 History ipratropium bromide 0.02 % 0.5 mg continuous nebulization Q4H 09/20/24 09/20/24 History solution for inhalation PRN shortness of breath or wheezing metoprolol tartrate 25 mg tablet 25 mg PO Q12H 09/20/24 09/20/24 History rivaroxaban 2.5 mg tablet (Xarelto) 2.5 mg PO BID 09/20/24 09/20/24 History tizanidine 2 mg tablet 2 mg PO Q12H PRN muscle spasticity 09/20/24 09/20/24 History Laboratory Tests 09/23/24 14:30 Sodium 137 mmol/L (137-145) Potassium 4.0 mmol/L (3.4-5.0) Chloride 105 mmol/L (98-107) Carbon Dioxide 31 H mmol/L (22-30) Anion Gap 1 L mmol/L (4-12) BUN 13 mg/dL (9-20) Creatinine 0.90 mg/dL (0.7-1.3) Estim Creat Clear Calc 97 ml/min Estimated GFR > 60 (59 - ) Glucose 122 H mg/dL (65-110) Calcium 8.7 mg/dL (8.4-10.2) Total Bilirubin 0.7 mg/dL (0.2-1.3) AST 30 U/L (17-59) ALT 47 U/L (6-50) Alkaline Phosphatase 66 U/L (38-126) Total Protein 6.0 L g/dL (6.3-8.2) Albumin 3.8 g/dL (3.5-5.1) Amylase 55 U/L (30-110) Lipase 55 U/L (23-300) Patient hx anesthesia problems: none Family hx anesthesia problems: none Results Review: All pre-operative results and documents have been reviewed as part of the pre-operative evaluation. 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 He quit tobacco 7 years ago after smoking 1 pack per day for 20 years. He drinks on average about 1 alcoholic drink per month. He uses medical marijuana about 10 mg at night. No history of drug use or IV drug use. Lives at home with his and 2 adult children. He is a full code. He nominates his to be the individual would make medical decisions for him if he is unable. Smoking packs per day: 1 Smoking cigarettes per day: 20.0 Years smoked: 20 Smoking pack-years: 20.00 Smoking status: Former smoker Tobacco type: cigarettes Second hand tobacco smoke exposure: No Smoking end date: 09/25/15 Alcohol intake: current Drinks per week: 1 Substance use: current Substance use type: marijuana Other substance usage details: marijuana, has medical card. infrequent use Do You Feel Safe in your Home?: Yes Lack of Transportation: No Lack of Food: Never True Current Housing: I Have Housing Concerned About Future Housing: No Difficulty Paying Gas/Electric Bills: No Difficulty Paying for Meds: No Currently Unemployed: No Education: Trade/Vocational Certificate Difficulty w/ Childcare or Family Care: No Spiritual care concerns: No Anes - Eval Final PreProcedure Day of Procedure 09/24/24 12:09 Patient weight: obese Heart: regular rate and rhythm Lungs: clear to auscultation Airway: Mallampati scale class III Neurological: alert and oriented Last oral intake: >/= 8 hours ASA classification: IV Emergent: no Anesthetic plan: proceed Anesthesia type and monitoring: general ETT and standard monitoring Results Review: All pre-operative results and documents have been reviewed as part of the pre-operative evaluation. Informed Consent: The patient's anesthetic plan and its attendant risks and benefits were discussed with the patient/family/POA. Questions were solicited and answers provided to the satisfaction of the patient/family/POA.
--- NOTE | 2024-09-24 12:24 | WPDHPUPDATE1 ---
History and Physical Update Update Date/Time: 09/24/24 12:24 History and Physical has been reviewed, including an updated exam of the patient. There are NO changes in the patient's condition. Risks, benefits, and alternatives have been discussed and questions answered. Patient agrees to proceed with procedure.
[2024-09-24] MEDS: LACTATED RINGERS 1,000 ML 30 ML IV CONT (13:00)
[2024-09-24] MEDS: ceFAZolin 2 GM/D5W 50 ML 2 GM/50 ML BAG IVPB (13:05)
[2024-09-24] MEDS: BUPIVACAINE/EPINEPHRINE 0.5% 50 ML VIAL 30 ML INFILTRATE (13:11)
--- NOTE | 2024-09-24 14:03 | P.OP_ITS ---
Procedure Note - Detailed Date of Procedure 09/24/24 Pre-op Diagnosis Acute cholecystitis, cholelithiasis Post-op Diagnosis Same (Gangrenous acute cholecystitis, cholelithiasis) Procedure Performed Laparoscopic cholecystectomy Surgeon Omar Martínez MD Manager Strategic Development Shirin Alcantara CORSET FITTER Anesthesia General and Local Indications Patient came in with severe epigastric and chest pain. Concern initially was that he was having an acute coronary syndrome. Cardiac catheterization was negative. He was heparinized for [address] scan and then ultrasound showed that he had gallstones and some evidence of gallbladder wall thickening. He had a HIDA scan yesterday which showed complete cystic duct obstruction. He is taken to surgery now for laparoscopic cholecystectomy for acute cholecystitis. Findings The upper portion of the wall of the gallbladder was gangrenous. Gallbladder wall was thickened. There was gelatinous bile in the gallbladder and small stones. There was no biliary ductal dilatation. There was some fatty change of the liver. No other significant findings. Description of Procedure Patient was taken to surgery and induced into general anesthesia. The abdomen was prepped and draped. Trocars were placed in the usual fashion using applied Chideo optical trocars and a 5 mm camera. The gallbladder was 1st decompressed with a laparoscopic aspirator. The gall bladder wall was so thickened that I did not feel it was necessary to close the cholecystotomy. The gallbladder was then freed from adhesions and retracted anterosuperiorly. There was a lot of acute edema and inflammation in the fundus and cholecystohepatic triangle. We place traction on the fundus of the gallbladder and began dissection in the triangle of Calot. The cystic duct was dissected out very clearly. There was a lot of inflammatory tissue and very small vessels between the cystic duct and the liver. Most of the bleeding occurred here. A cystic artery was never really found. We did dissect at least a 3rd of the gallbladder off the liver. Critical view was achieved. I then securely clipped and divided the cystic duct. We then continued dissection of the gallbladder off the liver until it was completely freed. The gallbladder was then retrieved in an Endo-Catch bag through the 10 11 epigastric trocar site. The epigastric trocar was then replaced. We retracted the under surface of the liver and then repeatedly used irrigation suction and cautery to achieve good hemostasis of the gallbladder fossa. This was done numerous times and eventually there was no evidence of bleeding or bile leakage. All looked good. We then evacuated CO2 and removed the trocar sleeves. Skin wounds were closed with subcuticular 4-0 Monocryl skin suture. The wounds were dressed with Exofin surgeon call adhesive. The patient was awakened and taken to recovery in good condition. Sponge needle counts were correct x2. Estimated Blood Loss -30 Urine Output 800 Drains No Packing No Pathology Yes (Gallbladder) Complications None Condition Stable Disposition PACU [facility] Billing Surgery - Charge Forward: Surgery Billing (Laparoscopic cholecystectomy)
[2024-09-24] MEDS: fentaNYL CITRATE INJ (*CRX) 100 MCG/2 ML VIAL 25 MCG IV PUSH ×9 (14:27→15:25)
[2024-09-24] MEDS: LABETALOL HCL INJ 100 MG/20 ML VIAL IV PUSH (15:06)
--- NOTE | 2024-09-24 16:00 | PM.IMPN ---
Progress Note: A&P Assessment and Plan (1) NSTEMI (non-ST elevated myocardial infarction): Code(s): I21.4 - Non-ST elevation (NSTEMI) myocardial infarction Status: Acute Assessment and Plan: - Initial EKG: SR with 1st degree block. - Repeat EKG: ST with RBB, cannot r/o antereseptal KS. - Troponin 0.202>>0.238 - Seen by Cardiology and pt s/p cardiac cath with no interventions. - Patient on asirin, metoprolol, lisinopril. - Aspirin held for now with Lap Shana scheduled later today. - Continue tele monitoring. (2) ACS (acute coronary syndrome): Code(s): I24.9 - Acute ischemic heart disease, unspecified Status: Acute Assessment and Plan: - Mgt as # 1. - Seen by Cardiology. - s/p cardiac cath without interventions. - Continue tele monitoring. (3) Cholelithiasis: Qualifiers: Cholelithiasis location: gallbladder Cholecystitis presence: without cholecystitis Biliary obstruction: without biliary obstruction Qualified Code(s): K80.20 - Calculus of gallbladder without cholecystitis without obstruction Code(s): K80.20 - Calculus of gallbladder without cholecystitis without obstruction Status: Chronic Assessment and Plan: - Patient still reporting recurrent epigastric pain. - US abd: gallstones and gallbladder wall thickening. - HIDA Scan consistent with acute cholecystitis. - Surgery planned for later today. - Continue pain and nausea meds PRN. (4) LV dysfunction: Code(s): I51.9 - Heart disease, unspecified Status: Acute Assessment and Plan: - Appears stable for now. - TT ECHO reviewed with no significant abnormalities noted. - Continue metoprolol and Lisinopril. (5) COPD (chronic obstructive pulmonary disease): Code(s): J44.9 - Chronic obstructive pulmonary disease, unspecified Status: Acute Assessment and Plan: - Appears compensated. - Bronchodilators as needed. (6) Hypertension: Code(s): I10 - Essential (primary) hypertension Status: Acute Assessment and Plan: - Appears well controlled for now. - Continue current meds. Plan Awaiting to see general surgery. Time Spent With Patient Time with patient: 15 - 25 minutes Subjective Date/time seen: 09/24/24 10:00 Patient states she still has upper abdominal pain. States awaiting planned for later today. Interval history: Patient calm on bedrest and looks to be in no acute distress. Review of Systems Review of Systems: All systems reviewed & are unremarkable except as noted in HPI and below Exam Narrative: General: Fair appearing, no acute distress. HEENT: Atraumatic, PERRL, EOM, moist mucosa. NECK: Supple. Lungs: Clear bilaterally. Heart: RRR, no murmurs. Abdomen: Soft, non-tender, obese, +ve sounds X4 quadrants. Extremities: Acyanotic, no edema. Skin: Warm and dry with no lesions. Neuro: Well oriented. CN II-XII with no focal deficits. Psych: Pleasant and co-operative. Objective Data Vital Signs Vital Signs: Vital Signs - 24 hr 09/23/24 20:00 09/23/24 20:00 09/23/24 20:14 Temperature Pulse Rate 87 84 Respiratory Rate Blood Pressure Pulse Oximetry 96 Oxygen Delivery Room Air Oxygen Flow Rate 09/23/24 20:44 09/24/24 00:00 09/24/24 04:00 Temperature 97.9 F Pulse Rate 85 72 727 H Respiratory Rate 18 Blood Pressure 115/58 L Pulse Oximetry 92 Oxygen Delivery Oxygen Flow Rate 09/24/24 04:09 09/24/24 07:26 09/24/24 08:00 Temperature 98.2 F 97.7 F Pulse Rate 79 72 Respiratory Rate 18 18 Blood Pressure 112/64 104/65 Pulse Oximetry 94 95 95 Oxygen Delivery Room Air Oxygen Flow Rate 09/24/24 08:00 09/24/24 10:08 09/24/24 11:30 Temperature 97 F L Pulse Rate 72 58 L Respiratory Rate 14 Blood Pressure 104/60 Pulse Oximetry 98 95 Oxygen Delivery Room Air Room Air Oxygen Flow Rate 09/24/24 14:08 09/24/24 14:20 09/24/24 14:35 Temperature 97 F L 97.7 F Pulse Rate 81 75 79 Respiratory Rate 17 11 L 19 Blood Pressure 160/96 H 162/106 H 161/98 H Pulse Oximetry 100 93 93 Oxygen Delivery Simple Face Mask Room Air Room Air Oxygen Flow Rate 8 09/24/24 14:50 09/24/24 15:05 09/24/24 15:06 Temperature Pulse Rate 80 75 78 Respiratory Rate 24 H 21 H Blood Pressure 162/106 H 152/103 H Pulse Oximetry 94 94 Oxygen Delivery Room Air Room Air Oxygen Flow Rate 09/24/24 15:20 09/24/24 15:35 Temperature Pulse Rate 86 74 Respiratory Rate 15 12 Blood Pressure 145/101 H 149/102 H Pulse Oximetry 95 94 Oxygen Delivery Room Air Room Air Oxygen Flow Rate Intake/Output Intake/Output: Intake & Output 09/21/24 09/22/24 09/23/24 09/24/24 23:59 23:59 23:59 23:59 Intake Total 740.0 1469 1940 850 Output Total 1250 565 560 5347 Balance -510.0 769 1140 -750 Meds/Results Medications: Active Medications Generic Name Dose Route Start Last Admin Trade Name Freq PRN Reason Stop Dose Admin Acetaminophen 650 mg 09/20/24 06:34 09/21/24 20:03 Acetaminophen 325 Mg Tablet PO 650 mg Q4H PRN Administration Mild Pain (1-3) or Fever Acetaminophen 650 mg 09/24/24 18:00 Acetaminophen 325 Mg Tablet PO Q6HR [place] Albuterol 2.5 mg 09/22/24 11:31 Albuterol Sulfate Neb 2.5 Mg/3 Ml Inh INHALATION Q4H PRN shortness of breath or wheezing Aspirin 81 mg 09/22/24 09:00 09/23/24 09:14 Aspirin 81 Mg Enteric Tablet PO 81 mg QAM [place] Administration Atorvastatin Calcium 80 mg 09/22/24 21:00 09/23/24 18:30 Atorvastatin 40 Mg Tablet PO 80 mg QPM [place] Administration Cilostazol 50 mg 09/22/24 21:00 09/23/24 20:15 Cilostazol 50 Mg Tablet PO 50 mg Q12HR [place] Administration Diphenhydramine HCl 25 mg 09/24/24 14:51 Diphenhydramine Hcl Inj 50 Mg/Ml Vial IV PUSH Q6H PRN Itching Ezetimibe 10 mg 09/23/24 09:00 09/23/24 09:14 Ezetimibe 10 Mg Tablet PO 10 mg DAILY [place] Administration Enoxaparin Sodium 40 mg 09/25/24 09:00 Enoxaparin 40 Mg/0.4 Ml Syringe SUB-Q DAILY [place] Hydromorphone HCl 1 mg 09/24/24 14:51 Hydromorphone Hcl Inj (*Crx) 1 Mg/Ml Syr IV PUSH Q2H PRN Breakthrough Pain Rated 7-10 or NPO Hydromorphone HCl 0.5 mg 09/24/24 14:51 Hydromorphone Hcl Inj (*Crx) 1 Mg/Ml Syr IV PUSH Q2H PRN Breakthrough Pain Rated 4-6 or NPO Lactated Ringer's 1,000 mls @ 30 mls/hr 09/24/24 14:20 Lr - Lactated Ringers Iv IV CONT .Q24H [place] Lactated Ringer's 1,000 mls @ 30 mls/hr 09/24/24 14:20 09/24/24 14:46 Lr - Lactated Ringers Iv IV CONT Infused .Q24H [place] Infusion Lactated Ringer's 1,000 mls @ 100 mls/hr 09/24/24 14:51 Lr - Lactated Ringers Iv IV CONT 09/25/24 00:50 .Q10H ONE Ibuprofen 800 mg in 200 mls @ 400 mls/hr 09/24/24 14:51 Caldolor 800 Mg/200 Ml IVPB Q6H PRN Breakthrough Pain Rated 1-3 or NPO Lisinopril 10 mg 09/23/24 09:00 09/23/24 09:15 Lisinopril 10 Mg Tablet PO 10 mg DAILY [place] Administration Metoprolol Tartrate 25 mg 09/22/24 21:00 09/24/24 08:17 Metoprolol Tartrate 25 Mg Tablet PO 25 mg Q12HR [place] Administration Naloxone HCl 0.1 mg 09/24/24 14:51 Naloxone Hcl 0.4 Mg/Ml Vial IV PUSH Q2M PRN Opiate Reversal Nitroglycerin 0.4 mg 09/20/24 10:25 Nitroglycerin Sl 0.4 Mg Tablet SUBLINGUAL Q5MIN PRN Chest Pain Ondansetron HCl 4 mg 09/24/24 14:18 Ondansetron Inj 4 Mg/2 Ml Vial IV PUSH ONCE PRN Nausea Ondansetron HCl 4 mg 09/24/24 14:51 Ondansetron Inj 4 Mg/2 Ml Vial IV PUSH Q4H PRN Nausea And Vomiting Oxycodone/Acetaminophen 1 tablet 09/24/24 14:51 Oxycodone/Acetaminophen (*Crx) 5-325 Mg Tablet PO Q4H PRN Pain Rated 4-6 Oxycodone/Acetaminophen 1 tab 09/24/24 14:51 Oxycodone/Acetaminophen (*Crx) 10-325 Mg Tablet PO Q6H PRN Pain Rated 7-10 Pregabalin 25 mg 09/23/24 09:00 09/24/24 08:17 Pregabalin (*Crx) 25 Mg Capsule PO 25 mg DAILY [place] Administration Tizanidine HCl 2 mg 09/22/24 11:31 Tizanidine Hcl 2 Mg Tablet PO Q12H PRN muscle spasticity Radiology Results: ITS Impressions Chest X-Ray 09/19/24 20:39 IMPRESSION: No acute cardiopulmonary process. Chest/Abdomen/Pelvis CTA 09/20/24 05:52 IMPRESSION: 1. Normal-sized gallbladder with gallstones and surrounding fat stranding suspicious for acute cholecystitis. 2. 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 3. 10 mm nodule in left lung lower lobe that measured 5 mm on 04/23/2015. This finding may be benign or malignant. Consider CT-guided biopsy. Abdomen Ultrasound 09/20/24 07:49 IMPRESSION: 1. Normal-sized gallbladder with gallstones and gallbladder wall thickening, but no sonographic Peres's sign. These findings are indeterminate for acute cholecystitis. Consider hepatobiliary scintigraphy. Hepatobiliary Scan Nuclear Medicine 09/23/24 13:20 IMPRESSION: 1. No gallbladder activity which could be consistent with acute cholecystitis. Quality VTE Prophylaxis VTE prophylaxis: mechanical ordered Hospitalist MIPS Advance Care Plan I have confirmed that the patient's Advanced Care Plan is present, code status is documented, or surrogate decision maker is listed in patient medical record.: Yes Medication Reconciliation I have utilized all available resources to obtain, update and review the patients current medications (includes all prescriptions, OTC, herbals, cannabis, and nutritional supplements).: Yes
[2024-09-24] MEDS: lisinopriL 10 MG TABLET PO (16:52)
[2024-09-24] MEDS: ATORVASTATIN 40 MG TABLET 80 MG PO (16:52)
[2024-09-24] MEDS: ASPIRIN 81 MG ENTERIC TABLET PO (16:52)
[2024-09-24] MEDS: cilostazoL 50 MG TABLET PO ×2 (16:52→20:19)
[2024-09-24] MEDS: EZETIMIBE 10 MG TABLET PO (16:52)
[2024-09-24] MEDS: LACTATED RINGERS 1,000 ML 100 ML IV CONT (18:54)
--- NOTE | 2024-09-24 21:28 | PC.NURSE ---
This patient, Scott Sanchez, was transferred to [[id number]] on 09/24/24 at 2128. Personal belongings sent with patient. Report given to [ Matt rn. Appropriate documentation sent with patient.
[2024-09-24] MEDS: oxyCODONE/ACETAMINOPHEN (*CRX) 10-325 MG TABLET 1 TAB PO (22:07)
[2024-09-24] MEDS: ACETAMINOPHEN 325 MG TABLET 650 MG PO (23:00)
[2024-09-25] VITALS (10 sets, daily range): BP systolic 109–121; BP diastolic 58–90; PULSE 66–93; RESP 16–20; TEMP 36–36.6; O2SAT 92–95
[2024-09-25] MEDS: ACETAMINOPHEN 325 MG TABLET 650 MG PO ×2 (05:15→12:42)
[2024-09-25] MEDS: oxyCODONE/ACETAMINOPHEN (*CRX) 10-325 MG TABLET 1 TAB PO ×2 (05:15→15:08)
[2024-09-25 06:52] LABS: Basophils Percent Auto 0.3 % (0.2-1.2); Eosinophils Absolute Auto 0.1 K/mm3 (0-0.3); Eosinophils Percent Auto 2.4 % (0-4.4); Hematocrit 42.7 % (42.0-52.0); Hemoglobin 14.3 g/dL (14.0-18.0); Immature Granulocyte Absolute 0.02 K/mm3 (0.00-0.031); Immature Granulocyte Percent A 0.3 % (0-0.5); Lymphocytes Percent Auto 28.9 % (18.3-44.2); Mean Corpuscular HGB Conc 33.5 g/dl (32-36); Mean Corpuscular Hemoglobin 31.2 pg (26-34); Mean Corpuscular Volume 93.2 fl (80-100); Mean Platelet Volume 9.6 fl (7.4-10.4); Monocytes Absolute Auto 0.5 K/mm3 (0.1-0.6); Monocytes Percent Auto 8.7 % (2.6-8.5); Neutrophils Absolute Auto 3.5 K/mm3 (1.3-6.7); Neutrophils Percent Auto 59.4 % (45.5-73.1); Platelet Count Result 163 k/mm3 (150-375); Red Blood Count 4.58 M/mm3 (4.6-6.20); Red Cell Distribution Width 13.5 % (11.5-14.5); White Blood Count 5.9 K/mm3 (4.5-10.0)
[2024-09-25 07:07] LABS: Anion Gap -2 mmol/L (4-12); Blood Urea Nitrogen 9 mg/dL (9-20); Calcium 8.6 mg/dL (8.4-10.2); Carbon Dioxide 34 mmol/L (22-30); Chloride 106 mmol/L (98-107); Estimated CRCL calculation 90 ml/min; Estimated Glomerular Filt Rate > 60; Glucose 82 mg/dL (65-110); Potassium 4.5 mmol/L (3.4-5.0); Sodium 138 mmol/L (137-145)
[2024-09-25] MEDS: METOPROLOL TARTRATE 25 MG TABLET PO (08:41)
[2024-09-25] MEDS: ASPIRIN 81 MG ENTERIC TABLET PO (08:41)
[2024-09-25] MEDS: EZETIMIBE 10 MG TABLET PO (08:41)
[2024-09-25] MEDS: lisinopriL 10 MG TABLET PO (08:45)
[2024-09-25] MEDS: ENOXAPARIN 40 MG/0.4 ML SYRINGE SUB-Q (08:45)
[2024-09-25] MEDS: PREGABALIN (*CRX) 25 MG CAPSULE PO (08:45)
[2024-09-25] MEDS: cilostazoL 50 MG TABLET PO (09:27)
--- NOTE | 2024-09-25 10:43 | P.DS_ITS ---
DS: Admitting Diagnosis Discharge Date 09/25/2024 Admitting Diagnosis Acute NSTEMI DS: Discharge Diagnosis Discharge Diagnosis (1) NSTEMI (non-ST elevated myocardial infarction): Code(s): I21.4 - Non-ST elevation (NSTEMI) myocardial infarction Status: Acute Assessment and Plan: - Initial EKG: SR with 1st degree block. - Repeat EKG: ST with RBB, cannot r/o antereseptal IN. - Troponin 0.202>>0.238 - Seen by Cardiology and pt s/p cardiac cath with no interventions. - Patient on asirin, metoprolol, lisinopril. - Continue ASA - Resume low-dose Xarelto 2.5 mg bid when OK with surgeon (2) Cholelithiasis: Qualifiers: Biliary obstruction: without biliary obstruction Cholecystitis presence: without cholecystitis Cholelithiasis location: gallbladder Qualified Code(s): K80.20 - Calculus of gallbladder without cholecystitis without obstruction Code(s): K80.20 - Calculus of gallbladder without cholecystitis without obstruction Status: Inactive Assessment and Plan: - Patient still reporting recurrent epigastric pain. - US abd: gallstones and gallbladder wall thickening. - HIDA Scan consistent with acute cholecystitis. - 09/24/24 underwent uneventful lap. olivia. - 09/25/24 tolerating diet and wants to go home. (3) LV dysfunction: Code(s): I51.9 - Heart disease, unspecified Status: Acute Assessment and Plan: - Appears stable for now. - TT ECHO reviewed with no significant abnormalities noted. - Continue metoprolol and Lisinopril. (4) COPD (chronic obstructive pulmonary disease): Code(s): J44.9 - Chronic obstructive pulmonary disease, unspecified Status: Acute Assessment and Plan: - Appears compensated. - Bronchodilators as needed. (5) Hypertension: Code(s): I10 - Essential (primary) hypertension Status: Acute Assessment and Plan: - Appears well controlled for now. - Continue current meds. DS: Summary Hospital Course Hospital Course: 53-year-old diabetic hypertensive male presented to the emergency department September 19, 2024 with chest and abdominal discomfort. EKG showed a sinus rhythm with incomplete right bundle branch block and nonspecific ST abnormalities. Troponin was elevated. He underwent urgent cardiac catheterization with following findings: LEFT HEART CATHETERIZATION FINDINGS: 1. Left main: The left main coronary artery is widely patent without any significant obstructive disease. 2. Left anterior descending: LAD has proximal 70% stenosis followed by an area of 70% stenosis at the distal edge of stent in the mid LAD. The first diagonal branch is a large vessel with subtotal occlusion at its ostium. There is a patent stent in the mid body of this diagonal branch. 3. Left circumflex: The left circumflex artery has severe disease in its proximal body. The true left circumflex continues on without significant disease. The previously stented OM1 system is occluded. 4. Ramus Intermedius: The ramus intermedius is a large caliber vessel that has 20% proximal disease and 20-30% disease in its midbody in a very tortuous segment. 5. Right coronary artery: The RCA is occluded in its distal body. 6. Grafts: A. The SVG Y-graft to OM1 and the 1st diagonal is widely pain with no significant obstructive disease angiographically. B. The radial to distal RPDA has significant spasm and after intracoronary nitroglycerin administration, the vessel was assessed and did not show any angiographically significant obstructive disease. C. The JAIME to LAD is free of any angiographically significant obstructive disease. 7. Left ventricle: A. End-diastolic pressure 23 mmHg. B. LV gram deferred. C. No significant gradient across aortic valve on catheter pullback. 8. Opening AO pressure 125/83 and closing AO pressure 119/85 9. Infra renal aortic aneurysm 10. Right external iliac artery is normal. Right common femoral artery has mild calcific disease. No intervention was undertaken. He was treated with IV heparin aspirin and his home regimen of metoprolol lisinopril and rosuvastatin. Xarelto was held. He remained stable and underwent uneventful laparoscopic cholecystectomy due to abnormal imaging of gallbladder neck continued upper abdominal discomfort. Postoperatively he tolerated his diet and was passing gas and was up and about independently. He wished to go home. He had no further chest pain and no shortness of breath and no swelling. Time Spent with Patient Time attestation: Total time spent providing and/or coordinating discharge services: Exam Narrative: General: Well-nourished. NAD. HEENT: PERRL, moist mucosa. NECK: Supple. No JVD. Lungs: Clear bilaterally. Heart: RRR, NL S1,2, no murmurs. Abdomen: BS+, soft, mild starla-incisional tenderness. Extremities: No edema. Skin: Warm and dry with no lesions. Neuro: CN II-XII with no focal deficits to visual inspection. Psych: Pleasant and co-operative. A/O x4. DS: Data Data Completed and Pending Pending studies at discharge: Pending at discharge 09/24/24 12:42 Surgical [PTH] Routine Labs on day of discharge: Labs from last 24 hours 09/25/24 06:02 WBC 5.9 RBC 4.58 L Hgb 14.3 Hct 42.7 MCV 93.2 MCH 31.2 MCHC 33.5 RDW 13.5 Plt Count 163 MPV 9.6 Immature Gran % (Auto) 0.3 Neut % (Auto) 59.4 Lymph % (Auto) 28.9 [place] % (Auto) 8.7 H Eos % (Auto) 2.4 Baso % (Auto) 0.3 Lymph # (Auto) 1.70 [place] # (Auto) 0.5 Eos # (Auto) 0.1 Baso # (Auto) 0.0 Abs Immat Gran (auto) 0.02 Absolute Neuts (auto) 3.5 Absolute Nucleated RBC 0.000 Nucleated RBC % 0.0 Sodium 138 Potassium 4.5 Chloride 106 Carbon Dioxide 34 H Anion Gap -2 L BUN 9 Creatinine 1.00 Estim Creat Clear Calc 90 Estimated GFR > 60 Glucose 82 Calcium 8.6 Discharge Plan Discharge Consulting providers: Omar Martínez; Bear Pablo Discharging Clinician: Enoch De Luna Patient Disposition: Home, Self-Care Activity: may shower, no straining and as tolerated Diet: heart healthy, diabetic and low sodium Wound Care Instructions: incision open to air Discharge Instructions: 1. May shower the day after surgery over incisions. 2. Call office for: -Wound increasingly painful or bleeding -Vomiting -Fever of greater than 101 degrees 3. Expect some blood on dressing and old blood on skin. 4. If no bowel movement for three days, take 1 oz. (30 ml) Milk of Magnesia, if no results, take Fleets enema. 5. No heavy lifting > 15-20 pounds for 2 weeks. 6. No driving for 3 days or while taking narcotic pain medications. 7. Up walking 10-30 minutes three times per day. 8. Resume previous home medications. 9. Follow-up 10-14 days in office for wound check or as previously scheduled. 10. Oral pain medications prescription to be sent home with patient. 11. Take oral antibiotic until it is gone. Patient Instructions: Antibiotic Form Patient Language: Greenlandic Stand Alone Forms: General Discharge Information, Work/School Release IP Follow-up/Referrals: Omar Martínez MD [Physician] - 3 Weeks (Call for appointment) Discharge Medications: New oxycodone-acetaminophen [Percocet] 5-325 mg tablet 0.5 - 1 tablet PO Q4H PRN (Reason: pain) Qty: 10 0RF aspirin 81 mg Tablet,Delayed Release (Dr/Ec) 81 mg PO QAM Qty: 30 0RF amoxicillin-pot clavulanate 875-125 mg tablet 1 tablet PO Q12H Qty: 10 0RF acetaminophen 325 mg Tablet 650 mg PO Q4H PRN (Reason: Mild Pain (1-3) Or Fever) Qty: 60 0RF Continued pregabalin [Lyrica] 25 mg capsule 25 mg PO DAILY Patient Comments: patient takes PM medications at 0000 and AM at 1200 due to work schedule ezetimibe [Zetia] 10 mg tablet 10 mg PO DAILY albuterol sulfate 2.5 mg /3 mL (0.083 %) solution for nebulization 2.5 mg inhalation Q4H PRN (Reason: shortness of breath or wheezing) atorvastatin 80 mg tablet 80 mg PO QPM buprenorphine HCl [Belbuca] 75 mcg film 75 mcg BUCCAL Q12H cilostazol 50 mg tablet 50 mg PO Q12H Jardiance 10 mg tablet 10 mg PO DAILY furosemide 20 mg tablet 20 mg PO DAILY PRN (Reason: edema) ipratropium bromide 0.02 % solution 0.5 mg continuous nebulization Q4H PRN (Reason: shortness of breath or wheezing) metoprolol tartrate 25 mg tablet 25 mg PO Q12H tizanidine 2 mg tablet 2 mg PO Q12H PRN (Reason: muscle spasticity) albuterol sulfate 90 mcg/actuation HFA aerosol inhaler 2 puff INHALATION Q4H PRN (Reason: shortness of breath or wheezing) lisinopril 10 mg tablet 10 mg PO DAILY albuterol 90 mcg/actuation Aerosol 90 mcg INHALATION PRN nitroglycerin 0.4 mg tablet, sublingual 0.4 mg sublingual Q5M PRN (Reason: chest pain) Qty: 10 0RF Rx Instructions: do not exceed 3 doses per episode Held Xarelto 2.5 mg tablet 2.5 mg PO BID Hold Instructions: Resume on 10/01/24. Do not restart if you are have excess bruising or abnormal bleeding. Discontinued aspirin [Children's Aspirin] 81 mg Tablet,Chewable 81 mg PO DAILY@0800 Qty: 30 1RF Date of admission: 09/20/24 18:59 Primary Care Provider: DeidreDoc Admitting Provider: Alo Dior V. Attending physician on admission: Alo Dior V. Condition: Improved
--- NOTE | 2024-09-25 13:44 | PM.PNGS ---
Progress Note: A&P Assessment and Plan (1) Cholelithiasis and acute cholecystitis with obstruction: Code(s): K80.01 - Calculus of gallbladder with acute cholecystitis with obstruction Status: Acute Assessment and Plan: Patient doing well after laparoscopic cholecystectomy yesterday. Okay to discharge from surgical perspective. I will send home with 5 days of Augmentin. Instructions including return to work have been discussed. He should see me in the office in approximately 3 weeks. Subjective Subjective Date/Time Seen: 09/25/24 13:44 Post Op day: 1 Patient reports: no new complaints, feels better, pain is less, tolerating a regular diet, voiding w/o difficulty and afebrile Exam Const: General: comfortable and no acute distress Orientation/consciousness: patient oriented x3 GI: Inspection: incision (Dry and healing well) and obesity GI Palp: Yes Soft to palpation, Yes Tenderness to palpation present (GI) (Mild appropriate tenderness), No Guarding due to palpation present (GI) and No Rebound tenderness present Auscultation: normal bowel sounds Neuro: General: patient oriented x3 and no focal motor deficits Extrem: General: no calf tenderness and no edema Psych: Affect: normal affect Insight: Good insight present (Psych) Judgement: Good judgement present (Psych) Objective Data Vital Signs Vital Signs: Vital Signs - 24 hr 09/24/24 14:08 09/24/24 14:20 09/24/24 14:35 Temperature 36.1 C L 36.5 C Pulse Rate 81 75 79 Respiratory Rate 17 11 L 19 Blood Pressure 160/96 H 162/106 H 161/98 H Pulse Oximetry 100 93 93 Oxygen Delivery Simple Face Mask Room Air Room Air Oxygen Flow Rate 8 Fraction of Inspired Oxygen 09/24/24 14:50 09/24/24 15:05 09/24/24 15:06 Temperature Pulse Rate 80 75 78 Respiratory Rate 24 H 21 H Blood Pressure 162/106 H 152/103 H Pulse Oximetry 94 94 Oxygen Delivery Room Air Room Air Oxygen Flow Rate Fraction of Inspired Oxygen 09/24/24 15:20 09/24/24 15:35 09/24/24 16:28 Temperature Pulse Rate 86 74 Respiratory Rate 15 12 Blood Pressure 145/101 H 149/102 H Pulse Oximetry 95 94 92 Oxygen Delivery Room Air Room Air Room Air Oxygen Flow Rate Fraction of Inspired Oxygen 09/24/24 16:36 09/24/24 20:00 09/24/24 20:18 Temperature 36.4 C L Pulse Rate 79 74 74 Respiratory Rate 20 20 Blood Pressure 139/78 Pulse Oximetry 94 94 Oxygen Delivery Room Air Oxygen Flow Rate Fraction of Inspired Oxygen 28 09/24/24 21:55 09/25/24 00:03 09/25/24 00:30 Temperature 36.5 C 36.2 C L Pulse Rate 78 77 79 Respiratory Rate 20 20 Blood Pressure 127/82 121/85 Pulse Oximetry 93 92 Oxygen Delivery Oxygen Flow Rate Fraction of Inspired Oxygen 09/25/24 04:00 09/25/24 04:55 09/25/24 08:00 Temperature 36.6 C Pulse Rate 78 84 Respiratory Rate 16 Blood Pressure 121/90 Pulse Oximetry 92 Oxygen Delivery Room Air Oxygen Flow Rate Fraction of Inspired Oxygen 09/25/24 08:00 09/25/24 08:41 09/25/24 10:00 Temperature 36.0 C L Pulse Rate 78 90 93 Respiratory Rate 18 Blood Pressure 120/65 Pulse Oximetry 92 Oxygen Delivery Oxygen Flow Rate Fraction of Inspired Oxygen 09/25/24 12:00 Temperature Pulse Rate 90 Respiratory Rate Blood Pressure Pulse Oximetry Oxygen Delivery Oxygen Flow Rate Fraction of Inspired Oxygen Intake/Output Intake/Output: Intake & Output 09/22/24 09/23/24 09/24/24 09/25/24 23:59 23:59 23:59 23:59 Intake Total 1469 1940 1090 771 Output Total 279 828 5276 Balance 769 1140 -510 771 Meds/Results Medications: Active Medications Generic Name Dose Route Start Last Admin Trade Name Freq PRN Reason Stop Dose Admin Acetaminophen 650 mg 09/20/24 06:34 09/21/24 20:03 Acetaminophen 325 Mg Tablet PO 650 mg Q4H PRN Administration Mild Pain (1-3) or Fever Acetaminophen 650 mg 09/24/24 18:00 09/25/24 12:42 Acetaminophen 325 Mg Tablet PO 650 mg Q6HR [place] Administration Albuterol 2.5 mg 09/22/24 11:31 Albuterol Sulfate Neb 2.5 Mg/3 Ml Inh INHALATION Q4H PRN shortness of breath or wheezing Aspirin 81 mg 09/22/24 09:00 09/25/24 08:41 Aspirin 81 Mg Enteric Tablet PO 81 mg QAM [place] Administration Atorvastatin Calcium 80 mg 09/22/24 21:00 09/24/24 16:52 Atorvastatin 40 Mg Tablet PO 80 mg QPM [place] Administration Cilostazol 50 mg 09/22/24 21:00 09/25/24 09:27 Cilostazol 50 Mg Tablet PO 50 mg Q12HR [place] Administration Diphenhydramine HCl 25 mg 09/24/24 14:51 Diphenhydramine Hcl Inj 50 Mg/Ml Vial IV PUSH Q6H PRN Itching Ezetimibe 10 mg 09/23/24 09:00 09/25/24 08:41 Ezetimibe 10 Mg Tablet PO 10 mg DAILY [place] Administration Enoxaparin Sodium 40 mg 09/25/24 09:00 09/25/24 08:45 Enoxaparin 40 Mg/0.4 Ml Syringe SUB-Q 40 mg DAILY [place] Administration Hydromorphone HCl 1 mg 09/24/24 14:51 Hydromorphone Hcl Inj (*Crx) 1 Mg/Ml Syr IV PUSH Q2H PRN Breakthrough Pain Rated 7-10 or NPO Hydromorphone HCl 0.5 mg 09/24/24 14:51 Hydromorphone Hcl Inj (*Crx) 1 Mg/Ml Syr IV PUSH Q2H PRN Breakthrough Pain Rated 4-6 or NPO Lactated Ringer's 1,000 mls @ 30 mls/hr 09/24/24 14:20 09/24/24 18:31 Lr - Lactated Ringers Iv IV CONT Not Given .Q24H [place] Lactated Ringer's 1,000 mls @ 30 mls/hr 09/24/24 14:20 09/24/24 14:46 Lr - Lactated Ringers Iv IV CONT Infused .Q24H [place] Infusion Ibuprofen 800 mg in 200 mls @ 400 mls/hr 09/24/24 14:51 Caldolor 800 Mg/200 Ml IVPB Q6H PRN Breakthrough Pain Rated 1-3 or NPO Lisinopril 10 mg 09/23/24 09:00 09/25/24 08:45 Lisinopril 10 Mg Tablet PO 10 mg DAILY [place] Administration Metoprolol Tartrate 25 mg 09/22/24 21:00 09/25/24 08:41 Metoprolol Tartrate 25 Mg Tablet PO 25 mg Q12HR [place] Administration Naloxone HCl 0.1 mg 09/24/24 14:51 Naloxone Hcl 0.4 Mg/Ml Vial IV PUSH Q2M PRN Opiate Reversal Nitroglycerin 0.4 mg 09/20/24 10:25 Nitroglycerin Sl 0.4 Mg Tablet SUBLINGUAL Q5MIN PRN Chest Pain Ondansetron HCl 4 mg 09/24/24 14:18 Ondansetron Inj 4 Mg/2 Ml Vial IV PUSH ONCE PRN Nausea Ondansetron HCl 4 mg 09/24/24 14:51 Ondansetron Inj 4 Mg/2 Ml Vial IV PUSH Q4H PRN Nausea And Vomiting Oxycodone/Acetaminophen 1 tablet 09/24/24 14:51 Oxycodone/Acetaminophen (*Crx) 5-325 Mg Tablet PO Q4H PRN Pain Rated 4-6 Oxycodone/Acetaminophen 1 tab 09/24/24 14:51 09/25/24 05:15 Oxycodone/Acetaminophen (*Crx) 10-325 Mg Tablet PO 1 tab Q6H PRN Administration Pain Rated 7-10 Pregabalin 25 mg 09/23/24 09:00 09/25/24 08:45 Pregabalin (*Crx) 25 Mg Capsule PO 25 mg DAILY [place] Administration Tizanidine HCl 2 mg 09/22/24 11:31 Tizanidine Hcl 2 Mg Tablet PO Q12H PRN muscle spasticity Radiology Results: ITS Impressions Chest X-Ray 09/19/24 20:39 IMPRESSION: No acute cardiopulmonary process. Chest/Abdomen/Pelvis CTA 09/20/24 05:52 IMPRESSION: 1. Normal-sized gallbladder with gallstones and surrounding fat stranding suspicious for acute cholecystitis. 2. 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 3. 10 mm nodule in left lung lower lobe that measured 5 mm on 04/23/2015. This finding may be benign or malignant. Consider CT-guided biopsy. Abdomen Ultrasound 09/20/24 07:49 IMPRESSION: 1. Normal-sized gallbladder with gallstones and gallbladder wall thickening, but no sonographic Peres's sign. These findings are indeterminate for acute cholecystitis. Consider hepatobiliary scintigraphy. Hepatobiliary Scan Nuclear Medicine 09/23/24 13:20 IMPRESSION: 1. No gallbladder activity which could be consistent with acute cholecystitis. Labs Labs: Laboratory Results - last 24 hr 09/25/24 06:02 WBC 5.9 RBC 4.58 L Hgb 14.3 Hct 42.7 MCV 93.2 MCH 31.2 MCHC 33.5 RDW 13.5 Plt Count 163 MPV 9.6 Immature Gran % (Auto) 0.3 Neut % (Auto) 59.4 Lymph % (Auto) 28.9 [place] % (Auto) 8.7 H Eos % (Auto) 2.4 Baso % (Auto) 0.3 Lymph # (Auto) 1.70 [place] # (Auto) 0.5 Eos # (Auto) 0.1 Baso # (Auto) 0.0 Abs Immat Gran (auto) 0.02 Absolute Neuts (auto) 3.5 Absolute Nucleated RBC 0.000 Nucleated RBC % 0.0 Sodium 138 Potassium 4.5 Chloride 106 Carbon Dioxide 34 H Anion Gap -2 L BUN 9 Creatinine 1.00 Estim Creat Clear Calc 90 Estimated GFR > 60 Glucose 82 Calcium 8.6
--- NOTE | 2024-09-25 14:53 | P.PNAN_ITS ---
Anes - Prog Note Post-Op Date/Time: 09/25/24 14:53 Cardiovascular status: normal Respiratory status: normal Airway patency: baseline Mental status: baseline Post-Op hydration status: normal Vital Signs: Last Vital Signs Temp 96.8 F L 09/25/24 10:00 Pulse 90 09/25/24 12:00 Resp 18 09/25/24 10:00 BP 120/65 09/25/24 10:00 Pulse Ox 92 09/25/24 10:00 O2 Del Method Room Air 09/25/24 08:00 O2 Flow Rate 8 09/24/24 14:08 FiO2 28 09/24/24 20:00 Pain Score (VAS): 0 I/O: Intake & Output 09/24/24 09/25/24 09/25/24 23:59 07:59 15:59 Intake Total 240 771 480 Balance 240 771 480 Laboratory Tests 09/25/24 06:02 09/25/24 06:02 09/25/24 06:02 WBC 5.9 RBC 4.58 L Hgb 14.3 Hct 42.7 MCV 93.2 MCH 31.2 MCHC 33.5 RDW 13.5 Plt Count 163 MPV 9.6 Immature Gran % (Auto) 0.3 Neut % (Auto) 59.4 Lymph % (Auto) 28.9 [place] % (Auto) 8.7 H Eos % (Auto) 2.4 Baso % (Auto) 0.3 Lymph # (Auto) 1.70 [place] # (Auto) 0.5 Eos # (Auto) 0.1 Baso # (Auto) 0.0 Abs Immat Gran (auto) 0.02 Absolute Neuts (auto) 3.5 Absolute Nucleated RBC 0.000 Nucleated RBC % 0.0 Sodium 138 Potassium 4.5 Chloride 106 Carbon Dioxide 34 H Anion Gap -2 L BUN 9 Creatinine 1.00 Estim Creat Clear Calc 90 Estimated GFR > 60 Glucose 82 Calcium 8.6 Post-procedural complaints: none Patient Feedback: Patient satisfied with anesthetic care.
--- OUTSIDE RECORDS SUMMARY | 2024-09-27 10:34 | XMS_ITS ---
Author Organization [facility] Address [address] [place] [address] PRINCE Jarvis [address] Care Team Providers Care Police Artist Name Role Phone ALONSO ARMAS MD Primary Care Provider Rudy Galvez Unavailable [phone] ALLERGIES Allergen (clinical drug ingredient) Drug/Non Drug Allergy documented on EMR Reaction Allergy Type Onset Date Status Cortisone Anaphylaxis Drug Allergy Activ e metronidazole Metronidazole rash Drug Allergy Active REASON FOR VISIT Follow Up, Right > Left Low Back Pain MEDICATIONS Medication SIG (Take, Route, Frequency, Duration) Notes Start Date End Date Status Narcan 4 MG/0.1ML 1 actuation in one nostril x1, Nasally 2-3 minutes as needed until the patient is responsive or EMS arrives Active tiZANidine HCl 2 MG 1 tablet as needed Orally twice daily prn muscle spasms for 30 days Active Xarelto 2.5 MG 1 tablet Oral Once a day Active Belbuca 75 MCG 1 film Bucally every 12 hrs for 30 days MAY FILL 08/31/24 08/14/2024 Active Lyrica 75 MG 1 capsule Orally EVERY 12 HOURS for 30 days 05/17/2024 Active Ezetimibe 10 MG 1 tablet Oral Once a day Active Doxycycline Hyclate 100 MG 1 tablet Orally every 12 hrs for 7 days 02/23/2023 Active Chlorhexidine Gluconate 4 % as directed Externally Wash with solution the night before your procedure and the morning of your procedure 02/23/2023 Active Metoprolol Tartrate 25 MG 1 tablet with food Oral Twice a day Active Jardiance 10 MG 1 tablet Oral Once a day Active Symbicort 160-4.5 MCG/ACT 1 puff as needed Inhalation every 4 hrs Active Incruse Ellipta 62.5 MCG/INH 1 puff Inhalation Once a day Active Lasix 40 MG 1 tablet Orally Once a day Active Combivent Respimat 20-100 MCG/ACT 1 puff as needed Inhalation every 6 hrs Active Furosemide 20 MG 1 tablet Oral Once a day Active Nitroglycerin 0.4 MG as directed Sublingual Once a day Active Lisinopril 10 MG 1 tablet Orally Once a day Active Meloxicam 7.5 MG 1 tablet Orally Once a day Active Carvedilol 3.125 MG 1 tablet with food Orally Twice a day Active Atorvastatin Calcium 40 MG 1 tablet Orally Once a day Active Relistor 150 MG 3 tablets 30 minutes before the first meal of the day Orally Once a day for 30 day(s) 09/17/2020 Active SOCIAL HISTORY Tobacco Use: Social History Observation Description Date Details (start date - stop date) Former Smoker NA - NA Sex Assigned At : Social History Observation Description Sex Assigned At Unknown Tobacco Use/Smoking Question Answer Notes Are you a former smoker How long has it been since you last smoked? 1-3 months VITAL SIGNS Blood pressure systolic 121 mm Hg 08/14/20 24 Blood pressure diastolic 80 mm Hg 024 Heart Rate 82 /min 08/14/2024 Respiratory Rate 18 /min 08/14/2024 Height 5 ft 9 in in 08/14/2024 Weight 204 lbs 08/14/2024 BMI 30.12 kg/m2 08/14/2024 Encounters Encounter Location Date Provider Diagnosis [facility] [address] [place] [address] 08/14/2024 Rudy Parnell Radiculopathy, lumba r region M54.16 ; Postlaminectomy syndrome, not elsewhere classified M96.1 ; Radiculopathy, lumbosacral region M54.17 ; Spondylosis without myelopathy or radiculopathy, lumbar region M47.816 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 ASSESSMENTS Encounter Date Diagnosis Assessment Notes Treatment Notes Treatment Clinical Notes 08/14/2024 Radiculopathy, lumbar region (ICD-10 - M54.16) 08/14/2024 Postlaminectomy syndrome, not elsewhere classified (ICD-10 - M96.1) The side effects of opioid analgesics including sedation, constipation potentially resulting in bowel obstruction, respiratory depression, tolerance, addiction, hyperalgesia, withdrawal after abrupt discontinuation, immunosuppression and endocrine abnormalities such as hypocortisolism and hypogonadism resulting in sexual dysfunction which may become permanent were discussed and the patient expressed an understanding of the above. The patient was advised to avoid driving, climbing ladders and operating dangerous machinery after taking this medication. The patient was advised to avoid consuming alcohol, illicit drugs and sedative/hypnotic drugs in conjunction with this medication due to the risk of profound respiratory depression and . The patient was directed to utilize the lowest effective dose possible. The importance of safe storage and keeping opioid medications locked up at all times in order to prevent theft and unintended consumption by friends, relatives or anyone else was discussed with the patient at length. The patient agrees to fully comply with the above. 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 Parnell. I have discussed and reviewed all of the pertinent history, physical examination findings and diagnostic imaging results with him. As a result of our discussion, Dr. Parnell has determined the above assessment and directed the treatment plan. This note was dictated using voice recognition software and therefore inadvertent errors may have occurred. This note was dictated by BAILEE Velazco. Total Time Spent with Patient and Medical Decision Makin minutes PLAN OF TREATMENT Medication Medication Name Sig Start Date Stop Date Notes Belbuca 75 MCG 1 film Bucally every 12 hrs for 30 days 08/14/2024 MAY FILL 08/31/24 Treatment Notes Assessment Notes Postlaminectomy syndrome, no t elsewhere classified The side effects of opioid analgesics including sedation, constipation potentially resulting in bowel obstruction, respiratory depression, tolerance, addiction, hyperalgesia, withdrawal after abrupt discontinuation, immunosuppression and endocrine abnormalities such as hypocortisolism and hypogonadism resulting in sexual dysfunction which may become permanent were discussed and the patient expressed an understanding of the above. The patient was advised to avoid driving, climbing ladders and operating dangerous machinery after taking this medication. The patient was advised to avoid consuming alcohol, illicit drugs and sedative/hypnotic drugs in conjunction with this medication due to the risk of profound respiratory depression and . The patient was directed to utilize the lowest effective dose possible. The importance of safe storage and keeping opioid medications locked up at all times in order to prevent theft and unintended consumption by friends, relatives or anyone else was discussed with the patient at length. The patient agrees to fully comply with the above. The [place] and [place] PDMP were reviewed and were appropriate Other The above-named patient was evaluated in conjunction with Dr. Parnell. I have discussed and reviewed all of the pertinent history, physical examination findings and diagnostic imaging results with him. As a result of our discussion, Dr. Parnell has determined the above assessment and directed the treatment plan. This note was dictated using voice recognition software and therefore inadvertent errors may have occurred. This note was dictated by BAILEE Velazco. Total Time Spent with Patient and Medical Decision Makin minutes Next Appt Details Follow Up: 4 Weeks OPV, Reas on: Provider Name:Rudy Melia coelho, 10/02/2024 02:30:00 PM, [address] [place] [address], [phone], Progress Notes * Examination Category Sub-Category Detail Notes Examination/ Pre-Anesthesia Assessment General: : The patient is alert and o riented X 3 in moderate distress decondary to pain HEENT: : Normocephalic, atr aumatic. PERRL. The oropharynx is clear Neck: : There is full rang e of motion of the cervical spine. Generalized TTP over cervical PS muscles bilaterally Heart: : Regular rate and r hythm Chest: : Clear to auscultat ion bilaterally Abdomen: : Soft and benign Musculoskeletal and Extremities: : There is tenderness to palpation over the bilateral L3-4 through L5-S1 facet joints. Extension and lateral rotation of the lumbar spine reproduces the patient's typical axial low back pain. Nathan's and gaenslen's are negative bilaterally. There is bilateral lumbar paraspinous muscle atrophy Neurological: : There is positive straight leg raising bilaterally, There is 4 out of 5 strength at the bilateral EHL Skin: : Clean, dry, intact Psychiatric: : Mood and affect ar e normal History and Physical Notes * HPI (History of Present Illness) Category Sub-Category Detail Notes Pain Management Radiographic Imaging MRI of the L-Spine done on 11/13/20: L1-2: Circumferential disc bulge indenting the ventral thecal sac. Bilateral facet arthropathy. L2-3: Disc osteophyte complex indenting the ventral thecal sac more to the left. Left neuroforaminal stenosis. Bilateral facet arthropathy. Large Schmorl's node in the superior endplate of L3. L3-L4 intervertebral disc bulge indenting the ventral thecal sac. Left neuroforaminal stenosis secondary to bulging disc and facet arthropathy. L4-L5: Right paracentral disc bulge consistent with re herniation at this level. Encroaching the right descending L5 nerve root. Mild left and moderate to severe right neuroforaminal stenosis. Prior laminectomy and proximal discectomy. L5-S1: Disc osteophyte complex indenting the ventral thecal sac. Disc extrusion migrating caudally along the posterior S1 vertebral body. Prior right laminectomy. [id number] left and severe right neuroforaminal stenosis. Facet arthropathy. Assessment and Follow-up: Follow-up Plan documen tremayne:: Yes MIPS Quality 2020: MIPS Documented:: Compliant
--- OUTSIDE RECORDS SUMMARY | 2024-09-27 10:34 | XMS_ITS ---
Author Organization [facility] Address [address] [place] [address] PRINCE Jarvis [address] Care Team Providers Care Motor Coach Driver Name Role Phone ALONSO ARMAS MD Primary Care Provider Rudy Galvez Unavailable [phone] ALLERGIES Allergen (clinical drug ingredient) Drug/Non Drug Allergy documented on EMR Reaction Allergy Type Onset Date Status Cortisone Anaphylaxis Drug Allergy Activ e metronidazole Metronidazole rash Drug Allergy Active REASON FOR VISIT Follow Up, Right > Left Low Back Pain, Right = Left Lower Extremity Pain MEDICATIONS Medication SIG (Take, Route, Frequency, Duration) Notes Start Date End Date Status tiZANidine HCl 2 MG 1 tablet as needed Orally twice daily prn muscle spasms for 30 days Active Ezetimibe 10 MG 1 tablet Oral Once a day Active Metoprolol Tartrate 25 MG 1 tablet with food Oral Twice a day Active Xarelto 2.5 MG 1 tablet Oral Once a day Active Narcan 4 MG/0.1ML 1 actuation in one nostril x1, Nasally 2-3 minutes as needed until the patient is responsive or EMS arrives Active Furosemide 20 MG 1 tablet Oral Once a day Active Chlorhexidine Gluconate 4 % as directed Externally Wash with solution the night before your procedure and the morning of your procedure 02/23/2023 Active Combivent Respimat 20-100 MCG/ACT 1 puff as needed Inhalation every 6 hrs Active Jardiance 10 MG 1 tablet Oral Once a day Active Doxycycline Hyclate 100 MG 1 tablet Orally every 12 hrs for 7 days 02/23/2023 Active Symbicort 160-4.5 MCG/ACT 1 puff as needed Inhalation every 4 hrs Active Lisinopril 10 MG 1 tablet Orally Once a day Active Lasix 40 MG 1 tablet Orally Once a day Active Nitroglycerin 0.4 MG as directed Sublingual Once a day Active Incruse Ellipta 62.5 MCG/INH 1 puff Inhalation Once a day Active Belbuca 75 MCG 1 film Bucally every 12 hrs for 30 days MAY FILL 07/20/24 07/17/2024 Active Relistor 150 MG 3 tablets 30 minutes before the first meal of the day Orally Once a day for 30 day(s) 09/17/2020 Active Atorvastatin Calcium 40 MG 1 tablet Orally Once a day Active Meloxicam 7.5 MG 1 tablet Orally Once a day Active Carvedilol 3.125 MG 1 tablet with food Orally Twice a day Active Lyrica 75 MG 1 capsule Orally EVERY 12 HOURS for 30 days 05/17/2024 Active SOCIAL HISTORY Tobacco Use: Social History Observation Description Date Details (start date - stop date) Former Smoker NA - NA Sex Assigned At : Social History Observation Description Sex Assigned At Unknown Tobacco Use/Smoking Question Answer Notes Are you a former smoker How long has it been since you last smoked? 1-5 years VITAL SIGNS Blood pressure systolic 106 mm Hg 07/17/20 24 Blood pressure diastolic 79 mm Hg 024 Heart Rate 88 /min 07/17/2024 Respiratory Rate 18 /min 07/17/2024 Height 5 ft 9 in in 07/17/2024 Weight 204 lbs 07/17/2024 BMI 30.12 kg/m2 07/17/2024 Encounters Encounter Location Date Provider Diagnosis [facility] [address] [facility] [place] [address] 07/17/2024 Rudy Parnell Radiculopathy, lumba r region M54.16 ; Postlaminectomy syndrome, not elsewhere classified M96.1 ; Radiculopathy, lumbosacral region M54.17 ; Spondylosis without myelopathy or radiculopathy, lumbar region M47.816 and [place]P (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 Z79.891 ASSESSMENTS Encounter Date Diagnosis Assessment Notes Treatment Notes Treatment Clinical Notes 07/17/2024 Radiculopathy, lumbar region (ICD-10 - M54.16) 07/17/2024 Postlaminectomy syndrome, not elsewhere classified (ICD-10 - [...] to fully comply with the above. 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 The [place] PDMP were reviewed and were appropriate Other [...] 4 Weeks OPV, Reas on: Provider Name:Rudy Cárdenas Nancy óscaromar, 10/02/2024 02:30:00 PM, [address] [place] [address], [phone], Progress Notes * Examination Category Sub-Category [...] posterior S1 vertebral body. Prior right laminectomy. [id number] left and severe right neuroforaminal stenosis. Facet arthropathy. Assessment and Follow-up: Follow-up Plan documen tremayne:: Yes MIPS Quality 2020: MIPS Documented:: Compliant
--- OUTSIDE RECORDS SUMMARY | 2024-09-27 10:34 | XMS_ITS ---
Author Organization [facility] Address [address] [place] [address] PRINCE Jarvis [address] Care Team Providers Care Maintenance Mgr Name Role Phone ALONSO ARMAS MD Primary Care Provider Rudy Galvez Unavailable [phone] ALLERGIES Allergen (clinical drug ingredient) Drug/Non Drug Allergy documented on EMR Reaction Allergy Type Onset Date Status Cortisone Anaphylaxis Drug Allergy Activ e metronidazole Metronidazole rash Drug Allergy Active REASON FOR VISIT Follow Up, Right > Left Low Back Pain, Right = Left Lower Extremity Pain MEDICATIONS Medication SIG (Take, Route, Frequency, Duration) Notes Start Date End Date Status Lyrica 75 MG 1 capsule Orally CALI RY 12 HOURS for 30 days 05/17/2024 Active Belbuca 75 MCG 1 film Bucally every 12 hrs for 30 days 06/17/2024 Active Narcan 4 MG/0.1ML 1 actuation in one nostril x1, Nasally 2-3 minutes as needed until the patient is responsive or EMS arrives Active Xarelto 2.5 MG 1 tablet Oral Once a day Active tiZANidine HCl 2 MG 1 tablet as needed Orally twice daily prn muscle spasms for 30 days Active Doxycycline Hyclate 100 MG 1 tablet Oral ly every 12 hrs for 7 days 02/23/2023 Active Chlorhexidine Gluconate 4 % as directed Externally Wash with solution the night before your procedure and the morning of your procedure 02/23/2023 Active Ezetimibe 10 MG 1 tablet Oral Once a day Active Jardiance 10 MG 1 tablet Oral Once a day Active Metoprolol Tartrate 25 MG 1 tablet with food Oral Twice a day Active Symbicort 160-4.5 MCG/ACT 1 puff as need ed Inhalation every 4 hrs Active Furosemide 20 MG 1 tablet Oral Once a day Active Combivent Respimat 20-100 MCG/ACT 1 puff as needed Inhalation every 6 hrs Active Lasix 40 MG 1 tablet Orally Once a day Active Incruse Ellipta 62.5 MCG/INH 1 puff Inha lation Once a day Active Meloxicam 7.5 MG 1 tablet Orally Once a day Active Atorvastatin Calcium 40 MG 1 tablet Oral ly Once a day Active Lisinopril 10 MG 1 tablet Orally Once a day Active Nitroglycerin 0.4 MG as directed Subling ual Once a day Active Carvedilol 3.125 MG 1 tablet with food Orally Twice a day Active Relistor 150 MG 3 tablets 30 minutes before the first meal of the day Orally Once a day for 30 day(s) 09/17/2020 Active VITAL SIGNS Blood pressure systolic 118 mm Hg 06/17/20 Blood pressure diastolic 77 mm Hg 024 Heart Rate 87 /min 06/17/2024 Respiratory Rate 18 /min 06/17/2024 Height 5 ft 9 in in 06/17/2024 Weight 204 lbs 06/17/2024 BMI 30.12 kg/m2 06/17/2024 Encounters Encounter Location Date Provider Diagnosis [facility] [address] [facility] [place] [address] 06/17/2024 Rudy Parnell Radiculopathy, lumba r region M54.16 ; Postlaminectomy syndrome, not elsewhere classified M96.1 ; Radiculopathy, lumbosacral region M54.17 ; Spondylosis without myelopathy or radiculopathy, lumbar region M47.816 and detention (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 Z79.891 ASSESSMENTS Encounter Date Diagnosis Assessment Notes Treatment Notes Treatment Clinical Notes 06/17/2024 Radiculopathy, lumbar region (ICD-10 - M54.16) 06/17/2024 Postlaminectomy syndrome, not elsewhere classified (ICD-10 - [...] to fully comply with the above. The [place] and [place] PDMP were reviewed and were appropriate 06/17/2024 Radiculopathy, lumbosacral region (ICD-10 - M54.17) 06/17/2024 Spondylosis without myelopathy or radiculopathy, lumbar region (ICD-10 - M47.816) 06/17/2024 detention (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 (ICD-10 - Z79.891) 06/17/2024 Other The above-named patient was evaluated in [...] Bucally every 12 hrs for 30 days Treatment Notes Assessment Notes Postlaminectomy syndrome, no [...] to fully comply with the above. The [place] and [place] PDMP were reviewed and were appropriate Other [...] OPV, Reas on: Provider Name:Rudy Cárdenas Nancy coelho, 10/02/2024 02:30:00 PM, [address] [place] [address], [phone], Progress Notes * Examination Category Sub-Category Detail [...] posterior S1 vertebral body. Prior right laminectomy. [id number] left and severe right neuroforaminal stenosis. Facet arthropathy. Assessment and Follow-up: Follow-up Plan documen tremayne:: Yes MIPS Quality 2020: MIPS Documented:: Compliant
--- OUTSIDE RECORDS SUMMARY | 2024-09-27 10:35 | XMS_ITS | CONTINUITY OF CARE DOCUMENT ---
Author Name diana ortiz Address Unknown Organization [facility] Address [address] [place] [address] Phone [phone] Care Team Providers Care Purchasing Assistant Name Role Phone Keith Brar MD Unavailable CATHERINE KNOX MD Unavailable Unavailable CATHERINE KNOX MD Unavailable Unavailable PROBLEMS Condition Status Date Provider Notes TOBACCO ABUSE active Keith rBar MD FAMILY HISTORY OF HEART DISEASE active Siddharth Brar MD HTN SYSTOLIC active Keith Brar MD HYPERTRIGLYCERIDEMIA active Keith Brar MD CHEST PAIN, ATYPICAL NORMAL STRESS CARDIOLITE active 2 Keith Brar MD ENCOUNTERS Date Type Provider Location Encounter Diag nosis 2 - 6 In-person encounter Office Visit Keith Brar MD [facility] Office CHEST PAIN, ATYPICAL NORMAL STRESS CARDIOLITEHYPERTRIGLYCERIDEMIAHTN SYSTOLICFAMILY HISTORY OF HEART DISEASETOBACCO ABUSE VITAL SIGNS Date Observation Value Provider blood pressure, diastolic 94 mm[Hg] Tremaine Khan blood pressure, systolic 122 mm[Hg] Buckyl love Bill pulse rate 77 /min Lorrie Khan oxygen saturation, oximetry 97 % Lorrie Khan respiratory rate E&M 16 /min Lorrie Khan weight E&M 214 [lb_av] Lorrie Khan ALLERGIES Allergy Name Onset Date Reaction Criticality Status CORTISONE High Criticality active HISTORY OF MEDICATION USE Medication Status Instructions Dates Provider Indications Com ments NIASPAN 500 MG ORAL TABLET EXTENDED RELEASE active ONE TAB. AT BEDTIME - Dispense as written Keith Brar MD LOVAZA 1 GM ORAL CAPSULE active 2 capsules twice a day Michaela James RN 2gms bid DEXILANT 60 MG ORAL CAPSULE DELAYED RELEASE active Zylisha Bill ASPIRIN 325 MG ORAL TABLET active ONE TAB. DAILY Zylisha Bill BYSTOLIC 5 MG ORAL TABLET active ONE TAB. DAILY Zylisha Bill SOCIAL HISTORY Date Observation Value Provider social history E&M Marital Statu s: L maribel with family/friends E thnicity: Keith Brar MD social history reviewed E&M reviewed Keith Brar MD physical exercise, f requency, days per week yes [employer] caffeine use, averag e drinks per day yes [employer] alcohol use, average drinks per day social basis only [employer] smoking status Smoker [employer] MENTAL STATUS Date Observation Value Provider assessment of judgme nt and insight E&M Alert and oriented to time, place and person. Mood and affect are normal. Keith Brar MD INSURANCE PROVIDERS Payer name Policy type / Coverage type [facility] alliance party ID [facility] [id number] TREATMENT PLAN Date Name Performer new patient: H is updated medication list for this problem includes: Bystolic 5 Mg Tabs (Nebivolol hcl) ..... One tab. daily Aspirin 325 Mg Tabs (Aspirin) ..... One tab. daily BP today: 122/94 Keith Brar MD new patient: H is updated medication list for this problem includes: Lovaza 1 Gm Caps ([id number] ethyl esters) ..... 2 capsules twice a day Niaspan 500 Mg Tbcr (Niacin (antihyperlipidemic)) ..... One tab. at bedtime - dispense as written BP today: 122/94 Prior BP: / () Keith Brar MD new patient: H is updated medication list for this problem includes: Bystolic 5 Mg Tabs (Nebivolol hcl) ..... One tab. daily Aspirin 325 Mg Tabs (Aspirin) ..... One tab. daily BP today: 122/94 Prior BP: / () N uclear Stress Findings: 1. Normal Doc protocol exercise tolerance test. 2 . Normal left ventricular size and function with a calculated ejection fraction of 63%. 3 . Myocardial scintigraphy is normal without evidence for previous myocardial infarction or reversible ischemia. - CNE (12/28/2011) Keith Brar MD
--- OUTSIDE RECORDS SUMMARY | 2024-09-27 10:35 | XMS_ITS | Encounter Summary ---
Author Organization [facility] - [facility] Address [address] [place] [address]. [place] [address] [place] [address] Care Team Providers Care Mold Polisher Name Role Phone Doc Jiang MD Primary Care Provider Jacky Martinez MD Unavailable [phone] Huey Camarillo MD Unavailable Encounter Details Date Type Department Care Team (Latest Contact Info) Description 11/19/2021 Travel Social History Tobacco Use Types Packs/Day Years Used Date Smoking Tobacco: Former Smokeless Tobacco: Never Alcohol Use Standard Drinks/Week Comments Yes 0 (1 standard drink = 0.6 oz pur e alcohol) occasional AUDIT-C Answer Date Recorded Frequency of Alcohol Consumption Never 04/05/2020 Average Number of Drinks Not on file 020 Frequency of Binge Drinking Not on file 03/25 Sex and Gender Information Value Date Recorded Sex Assigned at Not on file Legal Sex Male 10:23 PM [employer] Gender Identity Not on file Sexual Orientation Not on file COVID-19 Exposure Response Date Recorded In the last 10 days, have yo u been in contact with someone who was confirmed or suspected to have Coronavirus/COVID-19? No / Unsure 11/19/2021 6:58 AM [employer] documented as of this encounter Plan of Treatment Not on file documented as of this encounter Visit Diagnoses Not on filedocumented in this encounter Care Teams Mold Polisher Relationship Specialty Start Date End Date Doc Jiang MD [address] [place] [phone] PCP - General FAMILY PRACTICE 03/21/20 Jacky Martinez MD [address] [place] [address] Consulting Physician INTERVENTIONAL CARDIOLOGY 04/23/20 Huey Camarillo MD [address] [place] [address] Vascular/Manager Placement INTERNAL MEDICINE 08/13/20 documented as of this encounter
--- OUTSIDE RECORDS SUMMARY | 2024-09-27 10:35 | XMS_ITS | Encounter Summary ---
Author Organization [facility] - [facility] Address [address] [place] [address]. 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 No / Unsure 01/01/2023 9:45 PM CDT documented as of this encounter Plan of Treatment Not on file documented as of this encounter Visit Diagnoses Not on filedocumented in this encounter Care Teams Administrative Project Coordinator Relationship Specialty Start Date End Date Doc Jiang MD [address] [place] [phone] PCP - General FAMILY PRACTICE 03/21/20 Jacky Martinez MD [address] [place] [phone] Consulting Physician INTERVENTIONAL CARDIOLOGY 04/23/20 Huey Camarillo MD [address] [place] [address] Vascular/Photographer News INTERNAL MEDICINE 08/13/20 documented as of this encounter
--- OUTSIDE RECORDS SUMMARY | 2024-09-27 10:35 | XMS_ITS | Encounter Summary ---
Author Organization [facility] Address [facility] [place] [address] [place] [address] Care Team Providers Care Sweatband Shaper Name Role Phone Doc Jiang MD Primary Care Provider Jacky Martinez MD Unavailable [phone] Huey Camarillo MD Unavailable Reason for Visit * Reason Comments Chest Pain Encounter Details Date Type Department Care Team (Late st Contact Info) Description 01/01/2023 9:46 PM CDT - 01/01/2023 11:51 PM CDT Emergency [facility] [address] [place] [address] Shahid Gill, DO [address] [place] [address] Chest Pain Discharge Disposition: Home or Self Care (Routine Discharge) Social History Tobacco Use Types Packs/Day Years [...] on file Legal Sex Male 10:23 PM JOWL TRIMMER Gender Identity Not on file Sexual Orientation Not on file COVID-19 Exposure Response Date Recorded In the last 10 days, have yo u been in contact with someone who was confirmed or suspected to have Coronavirus/COVID-19? No / Unsure 01/01/2023 9:45 PM CDT documented as of this encounter Last Filed Vital Signs Vital Sign Reading Time Taken Comments Blood Pressure 109/82 01/01/2023 11:30 PM CDT Pulse 105 01/01/2023 11:30 PM CDT Temperature 36.2 ??C (97.2 ??F) 01/01/2023 9:55 PM CD T Respiratory Rate 16 01/01/2023 11:30 PM CDT Oxygen Saturation 93% 01/01/2023 11:30 PM CDT Inhaled Oxygen Concentration - - Weight - - Height - - Body Mass Index - - documented in this encounter Medications at Time of Discharge albuterol (2.5 MG/3ML) 0.083% nebulizer solution Take 3 mLs (2.5 mg total) by nebulization every 6 (six) hours as needed for Wheezing. 360 mL 07/10/2020 albuterol sulfate HFA 108 (90 Base) MCG/ACT inhaler Inhale 2 puffs into the lungs every 6 (six) hours as needed for Wheezing. budesonide-formo terol 160-4.5 MCG/ACT inhaler Inhale 2 puffs into the lungs 2 (two) times daily. Buprenorphine HCl (BELBUCA) 150 MCG FILMIndications: [address] 1 Film inside cheek. Indications: 75 mcg COMPRESSION STOCKINGS 20-30 MMHG Compression stockings, knee-high, open or closed toe Dx: I83.893 1 Container 5 09/07/2020 fenofibrate 145 MG tablet 09/07/2020 furosemide 20 MG tabletIndication s:1-2 daily prn Take 20 mg by mouth daily. Indications: 1-2 daily prn metOLazone 5 MG tablet Take 5 mg by mouth daily. nitroglycerin 0.[address] 1 tablet (0.4 mg total) under the tongue every 5 (five) minutes as needed for Chest Pain. 90 tablet 11/12/2021 pregabalin 75 MG capsule Take 1 capsule (75 mg total) by mouth 2 (two) times daily. tiZANidine 2 MG tablet Take 2 mg by mouth every 6 (six) hours as needed. documented as of this encounter ED Notes * Luba Purcell RN - 01/01/2023 9:59 PM CDT Pt in from home with c/o left sided chest pain that radiates down the left arm. Pt states pain started approx 1.5 hours ago while laying in bed. Pt took 2 nitro's and lisinopril. SOB denied at this time. Pt does not take a blood thinner. Pt in no distress upon arrival. * Shahid Gill, - 01/01/2023 9:45 PM CDT Chief Complaint Chief Complaint Patient presents with ??? Chest Pain History of Present Illness Patient presents with chest pain. Patient has a history of 3 cardiac stents last time in 2014 patient had a stress test approximately a year ago which was normal. Patient states he just had out started having chest pain tonight. No fevers or chills patient did not take any new medications. Nothing seems to make it better or worse. Patient denies any fevers cough or any other issues. Medical History ALLERGIES: Allergies Allergen Reactions ??? Cortizone-10 [Hydrocortisone] Other (see comment) Dermatologicals ??? Flagyl [Metronidazole] Hives and Itching MEDICATIONS: Prior to Admission medications Medication Sig Start Date End Date Taking? Authorizing Provider albuterol (2.5 MG/3ML) 0.083% nebulizer solution Take 3 mLs (2.5 mg total) by nebulization every 6 (six) hours as needed for Wheezing. 07/10/20 Benito Wheeler MD albuterol sulfate HFA 108 (90 Base) MCG/ACT inhaler Inhale 2 puffs into the lungs every 6 (six) hours as needed for Wheezing. Doc [facility] budesonide-formoterol 160-4.5 MCG/ACT inhaler Inhale 2 puffs into the lungs 2 (two) times daily. Doc [facility] Buprenorphine HCl (BELBUCA) [address] 1 Film inside cheek. Indications: 75 mcg Doc [facility] COMPRESSION STOCKINGS 20-30 MMHG Compression stockings, knee-high, open or closed toe Dx: I83.893 09/07/20 Huey Camarillo MD fenofibrate 145 MG tablet 09/07/20 [facility] furosemide 20 MG tablet Take 20 mg by mouth daily. Indications: 1-2 daily prn [facility] metOLazone 5 MG tablet Take 5 mg by mouth daily. Doc [facility] nitroglycerin 0.[address] 1 tablet (0.4 mg total) under the tongue every 5 (five) minutes as needed for Chest Pain. 11/12/21 Quan Garcia MD pregabalin 75 MG capsule Take 1 capsule (75 mg total) by mouth 2 (two) times daily. [facility] tiZANidine 2 MG tablet Take 2 mg by mouth every 6 (six) hours as needed. Doc [facility] PAST MEDICAL HISTORY: Past Medical History: Diagnosis Date ??? Bilateral lower extremity edema ??? Congestive heart failure (CMS/HCC) ??? COPD (chronic obstructive pulmonary disease) (CMS/HCC) ??? Coronary artery disease ??? GERD (gastroesophageal reflux disease) ??? Hypertension ??? Mixed hyperlipidemia PAST SURGICAL HISTORY: Past Surgical History: Procedure Laterality Date ??? BACK SURGERY ??? CORONARY ANGIOPLASTY 2014 ??? KNEE SURGERY FAMILY HISTORY: No family history on file. SOCIAL HISTORY: Social History Tobacco Use ??? Smoking status: Former ??? Smokeless tobacco: Never Substance Use Topics ??? Alcohol use: Yes Comment: occasional ??? Drug use: Not Currently Review of Systems Review of Systems Constitutional: Negative. HENT: Negative. Eyes: Negative. Respiratory: Negative. Cardiovascular: Negative. Gastrointestinal: Negative. Endocrine: Negative. Genitourinary: Negative. Musculoskeletal: Negative. Allergic/Immunologic: Negative. Neurological: Negative. Hematological: Negative. Psychiatric/Behavioral: Negative. Physical Exam Filed Vitals: 01/01/23 2230 01/01/23 2245 01/01/23 2300 01/01/23 2315 BP: (!) 135/91 117/75 118/68 109/78 Pulse: (!) 107 (!) 107 (!) 107 (!) 105 Resp: 15 16 18 15 Temp: TempSrc: SpO2: 96% 93% 94% 93% Physical Exam Vitals reviewed. Constitutional: Appearance: Normal appearance. HENT: Head: Normocephalic and atraumatic. Mouth/Throat: Mouth: Mucous membranes are moist. Eyes: Extraocular Movements: Extraocular movements intact. Pupils: Pupils are equal, round, and reactive to light. Cardiovascular: Rate and Rhythm: Normal rate and regular rhythm. Pulses: Normal pulses. Heart sounds: Normal heart sounds. Pulmonary: Effort: Pulmonary effort is normal. Breath sounds: Normal breath sounds. Abdominal: General: Abdomen is flat. Musculoskeletal: General: Normal range of motion. Cervical back: Normal range of motion. Skin: General: Skin is warm. Neurological: General: No focal deficit present. Mental Status: He is alert and oriented to person, place, and time. Diagnostic Studies / Procedures ELECTROCARDIOGRAMS: No results found for this visit on 01/01/23. LABORATORY STUDIES: Results for orders placed or performed during the hospital encounter of 01/01/23 CBC W/DIFF AUTOMATED Result Value Ref Range WBC 7.80 4.00 - 10.80 x10'3/uL RBC 4.78 4.50 - 6.10 x10'6/uL HGB 14.8 13.0 - 18.0 G/DL HCT 43.6 37.0 - 52.0 % MCV 91.2 78.0 - 100.0 FL MCH 31.0 27.0 - 31.0 PG MCHC 33.9 33.0 - 36.0 G/DL RDW 13.2 11.5 - 14.5 % PLT 236 150 - 350 x10'3/uL MPV 9.8 7.4 - 10.4 FL CBC COMMENT NORMAL REFERENCE RANGE NOT ESTABLISHED FOR THE PROPORTIONAL LEUKOCYTE DIFFERENTIAL. NEUTROPHILS 52.5 % LYMPHOCYTES 38.3 % MONOCYTES 7.3 % EOSINOPHILS 1.3 % BASOPHILS 0.5 % IMMATURE GRANS 0.1 % NRBC 0.0 % ABS. NEUTROPHILS 4.09 1.60 - 8.30 x10'3/uL ABS. LYMPHOCYTES 2.99 0.80 - 4.70 x10'3/uL ABS. MONOCYTES 0.57 0.00 - 1.50 x10'3/uL ABS. EOSINOPHILS 0.10 0.00 - 0.40 x10'3/uL ABS. BASOPHILS 0.04 0.00 - 0.20 x10'3/uL ABS. IMMATURE GRANULOCYTES 0.01 0.00 - 0.03 x10'3/uL ABS. NUCLEATED RBC'S 0.00 0.00 x10'3/uL PROTIME/INR, VENOUS Result Value Ref Range PROTIME 11.7 9.4 - 12.5 SEC INR 1.0 0.8 - 1.0 COMPREHENSIVE METABOLIC PANEL Result Value Ref Range SODIUM 137 136 - 145 MMOL/L POTASSIUM 3.7 3.5 - 5.1 MMOL/L CHLORIDE S/P/B 102 98 - 107 MMOL/L CO2 29.8 21.0 - 32.0 MMOL/L GLUCOSE 145 (H) 70 - 99 MG/DL BUN 14 6 - 24 MG/DL CREATININE S/P/B 1.34 (H) 0.70 - 1.30 MG/DL CALCIUM 8.7 8.4 - 10.5 MG/DL BILIRUBIN TOTAL S/P/B 0.3 0.2 - 1.0 MG/DL ALKALINE PHOSPHATASE S/P/B 78 45 - 115 U/L AST 12 (L) 15 - 37 U/L ALT 35 16 - 63 U/L TOTAL PROTEIN S/P/B 7.0 6.4 - 8.2 G/DL ALBUMIN S/P/B 3.7 3.4 - 5.0 G/DL ANION GAP 5.2 5.0 - 15.0 MMOL/L OSMOLALITY (CALC) 287 MOSM/KG GFR ESTIMATE 63 (L) >89 ML/MIN/1.73 M2 GFR NOTES GFR REFERENCES: CK (CPK) Result Value Ref Range CPK 125 39 - 308 U/L TROPONIN, QUANT Result Value Ref Range TROPONIN I HIGH SENSITIVITY 9 0 - 76 ng/L URINALYSIS Result Value Ref Range COLOR (U) YELLOW TRANSPARENCY CLEAR SPECIFIC GRAVITY (U) 1.025 1.000 - 1.025 U PH 5.5 5.0 - 8.0 LEUKOCYTES (U) NEGATIVE NEGATIVE NITRITES NEGATIVE NEGATIVE PROTEIN (U) NEGATIVE NEGATIVE URINE GLUCOSE NEGATIVE NEGATIVE KETONES (U) NEGATIVE NEGATIVE UROBILINOGEN 0.2 <1.0 EU/DL BILIRUBIN (U) NEGATIVE NEGATIVE BLOOD (U) NEGATIVE NEGATIVE WBC/HPF 0-5 0 - 5 /HPF RBC/HPF 0-5 0 - 5 /HPF DRUG SCREEN RAPID Result Value Ref Range CANNABINOIDS SCREEN (U) POSITIVE (A) NEGATIVE PHENCYCLIDINE PCP (U) NEGATIVE NEGATIVE COCAINE METABOLITES (U) NEGATIVE NEGATIVE METHAMPHETAMINE SCREEN (U) NEGATIVE NEGATIVE OPIATE SCREEN (U) NEGATIVE NEGATIVE AMPHETAMINE SCREEN (U) NEGATIVE NEGATIVE BENZODIAZEPINES SCREEN (U) NEGATIVE NEGATIVE TRICYCLIC ANTIDEPRESSANT SCREEN (U) NEGATIVE NEGATIVE METHADONE (U) NEGATIVE NEGATIVE BARBITURATES SCREEN (U) NEGATIVE NEGATIVE OXYCODONE SCREEN (U) NEGATIVE NEGATIVE PROPOXYPHENE SCREEN (U) NEGATIVE NEGATIVE URINE TOX COMMENT THIS TEST METHODOLOGY IS DESIGNED AND OFFERED A RAPID TURNAROUND, QUALITATIVE SCREENING PROCEDURE TO AID IN THE IMMEDIATE MEDICAL ASSESSMENT OF PATIENTS SUSPECTED OF SUBSTANCE ABUSE. IMAGING STUDIES XR CHEST PORTABLE Final Result by User, [email or web address] (01/01 2231) EXAMINATION: XR CHEST PORTABLE, 01/01/2023 10:29 PM TECHNIQUE: Upright AP portable radiograph of the chest HISTORY: Chest pain, coronary artery stent COMPARISON: Chest radiograph 11/12/2021 FINDINGS: There are multiple leads overlying the chest. Heart size is normal. The pulmonary vascular pattern appears unremarkable. There is no focal pulmonary consolidation. No pleural effusion. No pneumothorax. IMPRESSION: No radiographic evidence of an acute cardiopulmonary abnormality Referred By: Interpreted By: Shahid Leach MD, 01/01/2023 10:28 PM ED Course / Medical Decision Making MDM Clinical Impression Pleurodynia (Primary) Disposition: Data Unavailable Shahid Gill DO 01/01/23 2277 documented in this encounter Plan of Treatment Not on file documented as of this encounter Procedures Procedure Name Priority Date/Time Associated Diagnosis Comments DRUG SCREEN RAPID STAT 01/01/2023 10: 40 PM CDT HC URINALYSIS AUTO W/MICRO STAT 01/01/2023 10:40 PM CDT XR CHEST PORTABLE STAT 01/01/2023 10: 27 PM CDT PROTHROMBIN TIME, VENOUS STAT 01/01/2023 10:18 PM CDT COMPREHENSIVE METABOLIC PANEL STAT 01/01/2023 10:18 PM CDT CBC W/DIFF AUTOMATED STAT 01/01/2023 10:18 PM CDT TROPONIN, QUANT STAT 01/01/2023 10:18 PM CDT CK (CPK) STAT 01/01/2023 10:18 PM CDT ECG 12-LEAD Routine 01/01/2023 9:50 PM CDT documented in this encounter Results * (ABNORMAL) DRUG SCREEN RAPID (01/01/2023 10:40 PM CDT) CANNABINOIDS SCREEN (U) POSITIVE(A) NEGATIVE 01/01/2023 11:03 PM CDT [facility] PHENCYCLIDINE PCP (U) NEGATIVE NEGATIVE 01/01/2023 11:03 PM CDT [facility] COCAINE METABOLITES (U) NEGATIVE NEGATIVE 01/01/2023 11:03 PM CDT [facility] METHAMPHETAMINE SCREEN (U) NEGATIVE NEGATIVE 01/01/2023 11:03 PM CDT [facility] OPIATE SCREEN (U) NEGATIVE NEGATIVE 023 11:03 PM CDT [facility] AMPHETAMINE SCREEN (U) NEGATIVE NEGATIVE 01/01/2023 11:03 PM CDT [facility] BENZODIAZEPINES SCREEN (U) NEGATIVE NEGATIVE 01/01/2023 11:03 PM CDT [facility] TRICYCLIC ANTIDEPRESSANT SCREEN (U) NEGATIVE NEGATIVE 01/01/2023 11:03 PM CDT [facility] METHADONE (U) NEGATIVE NEGATIVE 01/01/2023 11:03 PM CDT [facility] BARBITURATES SCREEN (U) NEGATIVE NEGATIVE 01/01/2023 11:03 PM CDT [facility] OXYCODONE SCREEN (U) NEGATIVE NEGATIVE 01/01/2023 11:03 PM CDT [facility] PROPOXYPHENE SCREEN (U) NEGATIVE NEGATIVE 01/01/2023 11:03 PM CDT [facility] URINE TOX COMMENT THIS TEST METHODOLOGY IS DESIGNED AND OFFERED A RAPID TURNAROUND, QUALITATIVE SCREENING PROCEDURE TO AID IN THE IMMEDIATE MEDICAL ASSESSMENT OF PATIENTS SUSPECTED OF SUBSTANCE ABUSE. 01/01/2023 10:39 PM CDT [facility] Comment: CLINICAL CONSIDERATION AND PROFESSIONAL JUDGMENT MUST BE APPLIED TO ANY DRUG OF ABUSE TEST RESULT, BOTH POSITIVE AND NEGATIVE. CONFIRMATORY QUANTITATIVE RESULTS ARE AVAILABLE THROUGH OUR [facility]. URINE SPECIMEN / Unknown 01/01/2023 10:40 PM CDT us Shahid Gill DO URINE ORDERABLES Final Result [facility] [address] [place] [address], * URINALYSIS (01/01/2023 10:40 PM CDT) COLOR (U) YELLOW 01/01/2023 11:07 PM CDT [facility] TRANSPARENCY CLEAR 01/01/2023 11:07 PM CDT [facility] SPECIFIC GRAVITY (U) 1.025 1.000 - 1.025 01/01/2023 11:07 PM CDT [facility] U PH 5.5 5.0 - 8.0 01/01/2023 11:07 PM CDT [facility] LEUKOCYTES (U) NEGATIVE NEGATIVE 01/01/2023 11:07 PM CDT [facility] NITRITES NEGATIVE NEGATIVE 01/01/2023 11:07 PM CDT [facility] PROTEIN (U) NEGATIVE NEGATIVE 01/01/2023 11:07 PM CDT [facility] URINE GLUCOSE NEGATIVE NEGATIVE 01/01/2023 11:07 PM CDT [facility] KETONES MG/DL (U) NEGATIVE NEGATIVE 01/01/2023 11:07 PM CDT [facility] UROBILINOGEN 0.2 <1.0 EU/DL 01/01/2023 11:07 PM CDT [facility] BILIRUBIN (U) NEGATIVE NEGATIVE 01/01/2023 11:07 PM CDT [facility] BLOOD (U) NEGATIVE NEGATIVE 01/01/2023 11:07 PM CDT [facility] WBC/HPF 0-5 0 - 5 /HPF 01/01/2023 11:07 PM CDT [facility] RBC/HPF 0-5 0 - 5 /HPF 01/01/2023 11:07 PM CDT [facility] URINE SPECIMEN OBTAINED BY CLEAN CATCH PROCEDURE / Unknown 01/01/2023 10:40 PM CDT Shahid J Bridget DO URINE ORDERABLES Final Result [facility] [address] [place] [address], * XR CHEST PORTABLE (01/01/2023 10:27 PM CDT) Anatomical Region Laterality Modality Chest Radiographic Carmella ging 01/01/2023 10:2 8 PM CDT Impressions 01/01/2023 10:29 PM CDT IMPRESSION: No radiographic evidence of an acute cardiopulmonary abnormality Referred By: ?? Interpreted By: Shahid Leach MD, 01/01/2023 10:28 PM Narrative 01/01/2023 10:29 PM CDT EXAMINATION: XR CHEST PORTABLE, 01/01/2023 10:29 PM TECHNIQUE: Upright AP portable radiograph of the chest HISTORY: Chest pain, coronary artery stent COMPARISON: Chest radiograph 11/12/2021 FINDINGS: There are multiple leads overlying the chest. ??Heart size is normal. ??The pulmonary vascular pattern appears unremarkable. ??There is no focal pulmonary consolidation. ??No pleural effusion. ??No pneumothorax. Procedure Note Shahid Leach MD - 01/01/2023 EXAMINATION: XR CHEST PORTABLE, 01/01/2023 10:29 PM TECHNIQUE: Upright AP portable radiograph of the chest HISTORY: Chest pain, coronary artery stent COMPARISON: Chest radiograph 11/12/2021 FINDINGS: There are multiple leads overlying the chest. Heart size isnormal. The pulmonary vascular pattern appears unremarkable. There is nofocal pulmonary consolidation. No pleural effusion. No pneumothorax. IMPRESSION: No radiographic evidence of an acute cardiopulmonaryabnormality Referred By: Interpreted By: Shahid Leach MD, 01/01/2023 10:28 PM Shahid Gill DO GENERAL IMAGING Final Result * TROPONIN, QUANT (01/01/2023 10:18 PM CDT) Pathologist [facility] TROPONIN I HIGH SENSITIVITY 9 0 - 76 ng/L 01/01/2023 10:44 PM CDT [facility] 01/01/2023 10:1 8 PM CDT Shahid Gill DO LABORATORY Final Result Performing Organization Address [facility]/ZIP Co de Phone Number [facility] [address] [place] [address], * CK (CPK) (01/01/2023 10:18 PM CDT) Pathologist [facility] CPK 125 39 - 308 U/L 01/01/2023 10:44 PM CDT [facility] 01/01/2023 10:1 8 PM CDT Shahid Gill DO LABORATORY Final Result Performing Organization Address [facility]/ZIP Co de Phone Number [facility] [address] [place] [address], [place] [phone] * (ABNORMAL) COMPREHENSIVE METABOLIC PANEL (01/01/2023 10:18 PM CDT) Pathologist [facility] SODIUM S/P/B 137 136 - 145 MMOL/L 01/01/2023 10:44 PM CDT [facility] POTASSIUM S/P/B 3.7 3.5 - 5.1 MMOL/L 01/01/2023 10:44 PM CDT [facility] CHLORIDE S/P/B 102 98 - 107 MMOL/L 01/01/2023 10:44 PM CDT [facility] CO2 29.8 21.0 - 32.0 MMOL/L 01/01/2023 10:44 PM CDT [facility] GLUCOSE 145(H) 70 - 99 MG/DL 01/01/2023 10:44 PM [facility] Comment: FASTING GLUCOSE 100 TO 125 MG/DL IS CONSISTENT WITH IMPAIRED FASTING GLUCOSE. FASTING GLUCOSE >125 MG/DL IS CONSISTENT WITH DIABETES. RANDOM GLUCOSE >200 MG/DL WITH HYPERGLYCEMIC SYMPTOMS IS CONSISTENT WITH DIABETES. PER ADA GUIDELINES BUN 14 6 - 24 MG/DL 01/01/2023 10:44 PM [facility] CREATININE S/P/B 1.34(H) 0.70 - 1.30 MG/DL 01/01/2023 10:44 PM T [facility] CALCIUM S/P/B 8.7 8.4 - 10.5 MG/DL 01/01/2023 10:44 PM [facility] BILIRUBIN TOTAL S/P/B 0.3 0.2 - 1.0 MG/DL 01/01/2023 10:44 PM [facility] Comment: THIS ASSAY IS NOT RECOMMENDED FOR PATIENTS UNDERGOING TREATMENT WITH ELTROMBOPAG DUE TO THE POTENTIAL FOR FALSELY ELEVATED RESULTS. ALKALINE PHOSPHATASE S/P/B 78 45 - 115 U/L 01/01/2023 10:44 PM [facility] AST 12(L) 15 - 37 U/L 01/01/2023 10:44 PM [facility] ALT 35 16 - 63 U/L 01/01/2023 10:44 PM [facility] TOTAL PROTEIN S/P/B 7.0 6.4 - 8.2 G/DL 01/01/2023 10:44 PM [facility] ALBUMIN S/P/B 3.7 3.4 - 5.0 G/DL 01/01/2023 10:44 PM [facility] ANION GAP 5.2 5.0 - 15.0 MMOL/L 01/01/2023 10:44 PM [facility] OSMOLALITY (CALC) 287 MOSM/KG 023 10:44 PM [facility] Comment:REFERENCE RANGE NOT ESTABLISHED GFR ESTIMATE 63(L) >89 ML/MIN/1. 73 M2 01/01/2023 10:44 PM CDT [facility] GFR NOTES GFR REFERENCE S: 01/01/2023 10:44 PM CDT [facility] Comment: THE ESTIMATED GFR IS CALCULATED USING THE 2020 CKD-EPI EQUATION. THE FOLLOWING CATEGORIES FOR GRADING RENAL FUNCTION ARE RECOMMENDED BY THE INTERNATIONAL SOCIETY OF NEPHROLOGY (KDIGO 2012 CLINICAL PRACTICE GUIDELINE). G1,NORMAL OR HIGH: >89 ml/min/1.73 m2 G2,MILDLY DECREASED: 60-89 ml/min/1.73 m2 G3A,MILDLY TO MODERATELY DECREASED: 45-59 ml/min/1.73 m2 G3B,MODERATELY TO SEVERELY DECREASED: 30-44 ml/min/1.73 m2 G4,SEVERELY DECREASED: 15-29 ml/min/1.73 m2 G5,KIDNEY FAILURE: <15 ml/min/1.73 m2 01/01/2023 10:1 8 PM CDT Shahid Gill DO LABORATORY Final Result Performing Organization Address City/[facility]/ZIP Co de Phone Number [facility] [address] [place] [address], [place] [phone] * PROTIME/INR, VENOUS (01/01/2023 10:18 PM CDT) PROTIME 11.7 9.4 - 12.5 SEC 01/01/2023 10:32 PM CDT [facility] INR 1.0 0.8 - 1.0 01/01/2023 10:32 PM CDT [facility] 01/01/2023 10:1 8 PM CDT Shahid Gill DO LABORATORY Final Result Performing Organization Address [facility]/ZIP Co de Phone Number [facility] [address] [place] [address], * CBC W/DIFF AUTOMATED (01/01/2023 10:18 PM CDT) WBC 7.80 4.00 - 10.80 x10'3/uL 01/01/2023 10:28 PM CDT [facility] RBC 4.78 4.50 - 6.10 x10'6/uL 01/01/2023 10:28 PM CDT [facility] HGB 14.8 13.0 - 18.0 G/DL 01/01/2023 10:28 PM CDT [facility] HCT 43.6 37.0 - 52.0 % 01/01/2023 10:28 PM CDT [facility] MCV 91.2 78.0 - 100.0 FL 01/01/2023 10:28 PM CDT [facility] MCH 31.0 27.0 - 31.0 PG 01/01/2023 10:28 PM CDT [facility] MCHC 33.9 33.0 - 36.0 G/DL 01/01/2023 10:28 PM CDT [facility] RDW 13.2 11.5 - 14.5 % 01/01/2023 10:28 PM CDT [facility] PLT 236 150 - 350 x10'3/uL 01/01/2023 10:28 PM CDT [facility] MPV 9.8 7.4 - 10.4 FL 01/01/2023 10:28 PM CDT [facility] CBC COMMENT NORMAL REFERENCE RANGE NOT ESTABLISHED FOR THE PROPORTIONAL LEUKOCYTE DIFFERENTIAL. 01/01/2023 10:28 PM CDT [facility] NEUTROPHILS % 52.5 % 01/01/2023 10:28 PM CDT [facility] LYMPHOCYTES % 38.3 % 01/01/2023 10:28 PM CDT [facility] MONOCYTES % 7.3 % 01/01/2023 10:28 PM CDT [facility] EOSINOPHILS % 1.3 % 01/01/2023 10:28 PM CDT [facility] BASOPHILS % 0.5 % 01/01/2023 10:28 PM CDT [facility] IMMATURE GRANS % 0.1 % 01/02/20 10:28 PM CDT [facility] NRBC 0.0 % 01/01/2023 10:28 PM CDT [facility] ABS. NEUTROPHILS 4.09 1.60 - 8.30 x10'3/uL 01/01/2023 10:28 PM CDT [facility] ABS. LYMPHOCYTES 2.99 0.80 - 4.70 x10'3/uL 01/01/2023 10:28 PM CDT [facility] ABS. MONOCYTES 0.57 0.00 - 1.50 x10'3/uL 01/01/2023 10:28 PM CDT [facility] ABS. EOSINOPHILS 0.10 0.00 - 0.40 x10'3/uL 01/01/2023 10:28 PM CDT [facility] ABS. BASOPHILS 0.04 0.00 - 0.20 x10'3/uL 01/01/2023 10:28 PM CDT [facility] ABS. IMMATURE GRANULOCYTES 0.01 0.00 - 0.03 x10'3/uL 01/01/2023 10:28 PM CDT [facility] ABS. NUCLEATED RBC'S 0.00 0.00 x10'3/uL 01/01/2023 10:28 PM CDT [facility] 01/01/2023 10:1 8 PM CDT Shahid Gill DO LABORATORY Final Result [facility] [address] [address], * ECG 12 lead (01/01/2023 9:50 PM CDT) 01/01/2023 9:50 PM CDT Narrative [facility] - 01/02/2023 5:03 PM CDT ? [facility] ?[address] [place], [place] ??[address] ? Test Date: ?2023-01-01 Pat Name: ? SCOTT MANUS ? Department: ?? 3 ? Room: ? EXAM 505 Gender: ? Male ? Burnisher: ?? EDSFL : ?1970 ? Requested By: SHAHID GILL Order Number: [id number] ? Reading MD: ?? Giovani Garvey ? Measurements Intervals ?Warren ? Rate: ? 116 ?P: ?47 PA: ? 180 ?QRS: ?14 QRSD: ? 93 ? T: ?51 QT: ? 330 ? QTc: ?459 ? Interpretive Statements SINUS TACHYCARDIA WITH OCCASIONAL VENTRICULAR PREMATURE COMPLEXES NONSPECIFIC T-WAVE ABNORMALITY ABNORMAL RHYTHM ECG Procedure Note Giovani Garvey MD - 01/02/2023 [facility] [address] [place] [address] Test Date: 2023-01-01 Pat Name: SCOTT SANCHEZ Department: 3 Room: EXAM 505 Gender: Male Burnisher: EDSWY : 1970 Requested By: SHAHID GILL Order Number: [id number] Reading MD: Giovani Garvey Measurements Intervals [place] Rate: 116 P: 47 PA: 180 QRS: 14 QRSD: 93 T: 51 QT: 330 QTc: 459 Interpretive Statements SINUS TACHYCARDIA WITH OCCASIONAL VENTRICULAR PREMATURE COMPLEXES NONSPECIFIC T-WAVE ABNORMALITY ABNORMAL RHYTHM ECG us Shahid Gill DO ECG ORDERABLES Final Result Performing Organization Address City/State/[facility] Co de Phone Number [facility] documented in this encounter Visit Diagnoses Not on filedocumented in this encounter Administered Medications Inactive Administered Medications - up to 3 most recent administrations Medication Order MAR Action Action Date Dose Rate Site aspirin EC (ECOTRIN) tablet 325 mg 325 mg, Oral, Once, 1 dose, On 01/01/23 at 2215, Do not break, chew, or crush. Given 01/01/2023 10:54 PM CDT 325 mg documented in this encounter Active and Recently Administered Medications Times are shown in CDT. Scheduled Medication Order 12/30/2022 12/31/2022 01/01/2023 aspirin EC (ECOTRIN) tablet 325 mg (COMPLETED) 325 mg, Oral, Once, 1 dose, On 01/01/23 at 2215, Do not break, chew, or crush. 2254 (Given - Provid er: Luba Purcell RN) labetalol (TRANDATE) injection 20 mg 20 mg, Intravenous, Once, 1 dose, On 01/01/23 at 2215, Bolus may be administered by IV push at a rate of 10 mg/min. Monitor HR and BP prior to admin, 15 and 30 minutes post administration. Do not give if SBP <100mm or HR <55. Patient to stay supine during and for 30 minutes after IV administration due to potential for orthostatic hypotension. 2225 (Not Given - Pr ovider: Brii Martinez RN - Reason: Provider Order) documented in this encounter Care Teams Sweatband Shaper Relationship Specialty Start Date End Date Doc Jiang MD [address] [place] [phone] PCP - General FAMILY PRACTICE 03/21/20 Jacky Martinez MD [address] [place] [phone] Consulting Physician INTERVENTIONAL CARDIOLOGY 04/23/20 Huey Camarillo MD [address] [place] [phone] Vascular/[employer] INTERNAL MEDICINE 08/13/20 documented as of this encounter
--- OUTSIDE RECORDS SUMMARY | 2024-09-27 10:35 | XMS_ITS | Clinical Summary ---
Author Organization [facility] Address [facility] [place]. [place], [place] [id number] [place] [id number] Care Team Providers Care Aluminizer Name Role Phone Doc Jiang MD Primary Care Provider Jacky Martinez MD Unavailable [phone] Huey Camarillo MD Unavailable Allergies Active Allergy Reactions Criticality Noted Date Comments Hydrocortisone Other (see comment) 08/08/2019 Dermatologicals Metronidazole Hives,Itching 08/08/2019 Medications albuterol sulfate HFA 108 (90 Base) MCG/ACT inhaler Inhale 2 puffs into the lungs every 6 (six) hours as needed for Wheezing. Active budesonide-for moterol 160-4.5 MCG/ACT inhaler Inhale 2 puffs into the lungs 2 (two) times daily. Active furosemide 20 MG tabletIndicati ons:1-2 daily prn Take 20 mg by mouth daily. Indications: 1-2 daily prn Active tiZANidine 2 MG tablet Take 2 mg by mouth every 6 (six) hours as needed. Active Buprenorphine HCl (BELBUCA) 150 MCG FILMIndication s:[address] 1 Film inside cheek. Indications: 75 mcg Active albuterol (2.5 MG/3ML) 0.083% nebulizer solution Take 3 mLs (2.5 mg total) by nebulization every 6 (six) hours as needed for Wheezing. 360 mL 0 Active COMPRESSION STOCKINGS 20-30 MMHG Compression stockings, knee-high, open or closed toe Dx: I83.893 1 Container 5 0 Active fenofibrate 145 MG tablet 0 Active metOLazone 5 MG tablet Take 5 mg by mouth daily. Active pregabalin 75 MG capsule Take 1 capsule (75 mg total) by mouth 2 (two) times daily. Active nitroglycerin 0.[address] 1 tablet (0.4 mg total) under the tongue every 5 (five) minutes as needed for Chest Pain. 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 Gender Identity Not on file Sexual Orientation Not on file Last Filed Vital Signs Vital Sign Reading Time Taken Comments Blood Pressure 109/82 01/01/2023 11:30 PM CDT Pulse 105 01/01/2023 11:30 PM CDT Temperature 36.2 ??C (97.2 ??F) 01/01/2023 9:55 PM CD T Respiratory Rate 16 01/01/2023 11:30 PM CDT Oxygen Saturation 93% 01/01/2023 11:30 PM CDT Inhaled Oxygen Concentration - - Weight 98.9 kg (218 lb) 11/12/2021 7:39 AM KITCHEN AIDE Height 175.3 cm (5' 9 ) 11/12/2021 7:39 AM KITCHEN AIDE Body Mass Index 32.19 11/12/2021 7:39 AM KITCHEN AIDE Plan of Treatment Health Maintenance Due Date Last Done Comments Colorectal Cancer Screening Colonoscopy (10 Years) 1969 Annual Physical 1972 Hepatitis C 12/24/1987 DTaP, Tdap and Td Vaccines ( 1 - Tdap) 1988 Hepatitis B Vaccines (1 of 3 - 19+ 3-dose series) 1988 Zoster Vaccines (1 of 2) 12/24/2019 COVID-19 Vaccine (3 - 2023-2 5 season) 2024 02/13/2021, 01/16/2021 Influenza Adult (#1) 2024 Meningococcal Vaccine Aged Out No paul ronal eligible based on patient's age to complete this topic Pneumococcal Vaccine: Pediatrics (0 to 5 Years) and At-Risk Patients (6 to 64 Years) Aged Out No longer eligible b ased on patient's age to complete this topic RSV Immunizations Under 20 Months Aged Out No longer eligible b ased on patient's age to complete this topic Insurance Care Teams Aluminizer Relationship Specialty Start Date End Date Doc Jiang MD [address] [place] [phone] PCP - General FAMILY PRACTICE 03/21/20 Jacky Martinez MD [address] [place] [phone] Consulting Physician INTERVENTIONAL CARDIOLOGY 04/23/20 Huey Camarillo MD [address] [place] [phone] Vascular/[employer] INTERNAL MEDICINE 08/13/20
--- OUTSIDE RECORDS SUMMARY | 2024-09-27 10:35 | XMS_ITS | Patient Health Record ---
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 Role Phone ALONSO ARMAS MD Primary Care Provider Rudy Galvez Unavailable [phone] ALLERGIES Allergen (clinical drug ingredient) Drug/Non Drug Allergy documented on EMR Reaction Allergy Type Onset Date Status Cortisone Anaphylaxis Drug Allergy Activ e metronidazole Metronidazole rash Drug Allergy Active RESULTS Component Value Reference Range Notes [facility] Results (Not yet reviewed by provider) Interpretation: Performing Lab:[id number] [facility], [address] [address] [facility] [address] Ninfa Vitale MD Notes/Report: 4-ANPP: Fentanyl Negative. Acetyl fentanyl: Fentanyl Negative. Acetyl norfenta nyl: Fentanyl Negative. Acryl fentanyl: Fentanyl Negative. Carfentanil: Fentany l Negative. Para-fluorofentanyl: Fentanyl Negative. Codeine Quantification negative 50 ng/mL Morphine Quantification negative 50 ng/mL Hydrocodone Quantification negative 50 ng/mL Norhydrocodone Quantification negative 50 ng/mL Hydromorphone Quantification negative 50 ng/mL Oxycodone Quantification negative 50 ng/mL Noroxycodone Quantification negative 50 ng/mL Oxymorphone Quantification negative 50 ng/mL Buprenorphine Quantification negative 5 ng/mL Norbuprenorphine Quantification negative 20 ng/mL Fentanyl Quantification negative 1 ng/mL Norfentanyl Quantification negative 8 ng/mL Methadone Quantification negative 100 ng/mL EDDP (Methadone metabolite) Quantification negative 100 ng/mL Tramadol Quantification negative 100 ng/mL K-owlljiqtp-njokrkby Quantification negative 100 n g/mL H-Letxfyaqm-Iglcahhh Quantification negative 100 n g/mL Tapentadol Quantification negative 50 ng/mL Meperidine Quantification negative 50 ng/mL Normeperidine Quantification negative 50 ng/mL Alpha-Hydroxyalprazolam Quantification negative 20 ng/mL 2-Expob-Gscidjoopj Quantification negative 20 ng/m L Lorazepam Quantification negative 40 ng/mL Nordiazepam Quantification negative 40 ng/mL Temazepam Quantification negative 50 ng/mL Oxazepam Quantification negative 40 ng/mL Amphetamine Quantification negative 100 ng/mL Methylphenidate Quantification negative 50 ng/mL Ritalinic Acid Quantification negative 50 ng/mL Citalopram/Escitalopram Quantification negative 25 ng/mL N-Desmethylcitalopram Quantification negative 25 n g/mL Hydroxybupropion Quantification negative 50 ng/mL Duloxetine Quantification negative 25 ng/mL Fluoxetine Quantification negative 25 ng/mL NorFluoxetine Quantification negative 25 ng/mL Paroxetine Quantification negative 25 ng/mL Sertraline Quantification negative 10 ng/mL Trazodone Quantification negative 10 ng/mL Venlafaxine Quantification negative 100 ng/mL Desmethylvenlafaxine Quantification negative 100 n g/mL Aripipazole Quantification negative 5 ng/mL [id number]-3373 Quantification negative 15 ng/mL Clozapine Quantification negative 25 ng/mL N-Desmethylclozapine Quantification negative 25 ng /mL Haloperidol Quantification negative 5 ng/mL Reduced Haloperidol Quantification negative 5 ng/m L Olanzapine Quantification negative 25 ng/mL Quetiapine Quantification negative 25 ng/mL Norquetiapine Quantification negative 25 ng/mL Risperidone Quantification negative 10 ng/mL Hydroxyrisperidone Quantification negative 25 ng/m L Gabapentin Quantification negative 1000 ng/mL Pregabalin Quantification positive-6701.527 400 ng/mL Lamotrigine Quantification negative 50 ng/mL Ketamine Quantification negative 50 ng/mL Norketamine Quantification negative 50 ng/mL Naltrexone Quantification negative 10 ng/mL Naltrexol Quantification negative 10 ng/mL Naloxone Quantification negative 20 ng/mL cZolpidem Quantification negative 10 ng/mL Carisoprodol Quantification negative 100 ng/mL Meprobamate Quantification negative 100 ng/mL Pentobarbital Quantification negative 200 ng/mL Phenobarbital Quantification negative 200 ng/mL Secobarbital Quantification negative 200 ng/mL Butalbital Quantification negative 200 ng/mL Amitriptyline Quantification negative 50 ng/mL Nortriptyline Quantification negative 50 ng/mL Imipramine Quantification negative 50 ng/mL Desipramine Quantification negative 50 ng/mL Cyclobenzaprine Quantification negative 50 ng/mL Dextromethorphan negative 50 ng/mL Levorphanol / Dextrorphan Quantification negative 50 ng/mL Phentermine Quantification negative 50 ng/mL Methamphetamine Quantification negative 100 ng/mL Cocaine metabolite Quantification negative 50 ng/m L cTHC (Marijuana metabolite) Quantification negative 15 ng/mL MDMA Quantification negative 100 ng/mL 6-KAZ (Heroin metabolite) Quantification negative 10 ng/mL Phencyclidine Quantification negative 10 ng/mL 4-ANPP Quantification Fen Neg 2 ng/mL Acetyl fentanyl Quantification Fen Neg 2 ng/mL Acetyl norfentanyl Quantification Fen Neg 5 ng/mL Acryl fentanyl Quantification Fen Neg 1 ng/mL Carfentanil Quantification Fen Neg 2 ng/mL Para-fluorofentanyl Quantification Fen Neg 1 ng/m L 2-methyl AP-237 Quantification negative 10 ng/mL Brorphine Quantification negative 15 ng/mL Metonitazene Quantification negative 5 ng/mL 8-aminoclonazolam Quantification negative 10 ng/mL Etizolam Quantification negative 10 ng/mL Alpha-hydroxyetizolam Quantification negative 10 n g/mL Flualprazolam Quantification negative 10 ng/mL Flubromazolam Quantification negative 10 ng/mL ULD115 metabolite Quantification negative 10 ng/mL OFX773 metabolite Quantification negative 10 ng/mL RCS4 metabolite Quantification negative 10 ng/mL XLR11/UR144 metabolite negative 10 ng/mL 5F-ADB-M7 negative 10 ng/mL IV-QJCVSNOY-T8 negative 10 ng/mL QEZI-JJXPPBRD-E7 negative 10 ng/mL Eutylone Quantification negative 10 ng/mL Methylone Quantification negative 3 ng/mL Xylazine Quantification negative 10 ng/mL 4-hydroxy Xylazine Quantification negative 10 ng/m L Mitragynine (Kratom alkaloid ) Quantification negative 1 ng/mL 2-LZ-Zpnlexhieso (Kratom alk aloid) Quantification negative 1 ng/mL ETHANOL negative 20 mg/dL mg/dL Ethyl Glucuronide Quantification negative 500 ng/m L Ethyl Sulfate Quantification negative 500 ng/mL CREATININE (CHEMICAL) normal-27.1 >20 mg/dL mg/dL OXIDANT normal-0 <200 ug/mL ug/mL PH normal-5.8 4.5 - 9.5 SPECIFIC GRAVITY normal-1.007 1.003 - 1.035 [employer] Results (Not yet reviewed by provider) Interpretation: Performing Lab:[id number] [facility], [address] [address] [facility] [address] Ninfa Vitale MD Notes/Report: 4-ANPP: Fentanyl Negative. Acetyl fentanyl: Fentanyl Negative. Acetyl norfenta nyl: Fentanyl Negative. Acryl fentanyl: Fentanyl Negative. Carfentanil: Fentany l Negative. Para-fluorofentanyl: Fentanyl Negative. Oxymorphone Quantification negative 50 ng/mL Buprenorphine Quantification negative 5 ng/mL Norbuprenorphine Quantification negative 20 ng/mL Fentanyl Quantification negative 1 ng/mL Norfentanyl Quantification negative 8 ng/mL Methadone Quantification negative 100 ng/mL EDDP (Methadone metabolite) Quantification negative 100 ng/mL Tapentadol Quantification negative 50 ng/mL Meperidine Quantification negative 50 ng/mL Normeperidine Quantification negative 50 ng/mL Methylphenidate Quantification negative 50 ng/mL Ritalinic Acid Quantification negative 50 ng/mL Citalopram/Escitalopram Quantification negative 25 ng/mL N-Desmethylcitalopram Quantification negative 25 n g/mL Hydroxybupropion Quantification negative 50 ng/mL Duloxetine Quantification negative 25 ng/mL Fluoxetine Quantification negative 25 ng/mL NorFluoxetine Quantification negative 25 ng/mL Paroxetine Quantification negative 25 ng/mL Sertraline Quantification negative 10 ng/mL Trazodone Quantification negative 10 ng/mL Venlafaxine Quantification negative 100 ng/mL Desmethylvenlafaxine Quantification negative 100 n g/mL Aripipazole Quantification negative 5 ng/mL [id number]-3373 Quantification negative 15 ng/mL Clozapine Quantification negative 25 ng/mL N-Desmethylclozapine Quantification negative 25 ng /mL Haloperidol Quantification negative 5 ng/mL Reduced Haloperidol Quantification negative 5 ng/m L Olanzapine Quantification negative 25 ng/mL Quetiapine Quantification negative 25 ng/mL Norquetiapine Quantification negative 25 ng/mL Risperidone Quantification negative 10 ng/mL Hydroxyrisperidone Quantification negative 25 ng/m L Gabapentin Quantification negative 1000 ng/mL Pregabalin Quantification positive-88870.333 400 ng/mL Lamotrigine Quantification negative 50 ng/mL Ketamine Quantification negative 50 ng/mL Norketamine Quantification negative 50 ng/mL Naltrexone Quantification negative 10 ng/mL Naltrexol Quantification negative 10 ng/mL Naloxone Quantification negative 20 ng/mL cZolpidem Quantification negative 10 ng/mL Carisoprodol Quantification negative 100 ng/mL Meprobamate Quantification negative 100 ng/mL Cyclobenzaprine Quantification negative 50 ng/mL Dextromethorphan negative 50 ng/mL Levorphanol / Dextrorphan Quantification negative 50 ng/mL Phentermine Quantification negative 50 ng/mL 4-ANPP Quantification Fen Neg 2 ng/mL Acetyl fentanyl Quantification Fen Neg 2 ng/mL Acetyl norfentanyl Quantification Fen Neg 5 ng/mL Acryl fentanyl Quantification Fen Neg 1 ng/mL Carfentanil Quantification Fen Neg 2 ng/mL Para-fluorofentanyl Quantification Fen Neg 1 ng/m L 2-methyl AP-237 Quantification negative 10 ng/mL Brorphine Quantification negative 15 ng/mL Metonitazene Quantification negative 5 ng/mL 8-aminoclonazolam Quantification negative 10 ng/mL Etizolam Quantification negative 10 ng/mL Alpha-hydroxyetizolam Quantification negative 10 n g/mL Flualprazolam Quantification negative 10 ng/mL Flubromazolam Quantification negative 10 ng/mL PUU651 metabolite Quantification negative 10 ng/mL BKY305 metabolite Quantification negative 10 ng/mL RCS4 metabolite Quantification negative 10 ng/mL XLR11/UR144 metabolite negative 10 ng/mL 5F-ADB-M7 negative 10 ng/mL WG-NIRZLDDK-H6 negative 10 ng/mL MJCE-XATMWVOC-J6 negative 10 ng/mL Eutylone Quantification negative 10 ng/mL Methylone Quantification negative 3 ng/mL Xylazine Quantification negative 10 ng/mL 4-hydroxy Xylazine Quantification negative 10 ng/m L Mitragynine (Kratom alkaloid ) Quantification negative 1 ng/mL 1-MQ-Sldrontcjfy (Kratom alk aloid) Quantification negative 1 ng/mL ETHANOL negative 20 mg/dL mg/dL CREATININE normal-63.4 >20 mg/dL mg/dL OXIDANT normal-0 <200 ug/mL ug/mL PH normal-6.0 4.5 - 9.5 SPECIFIC GRAVITY normal-1.013 1.003 - 1.035 [employer] Results (Not yet reviewed by provider) Interpretation: Performing Lab:[id number] [employer], [address] [address] [facility] [address] Ninfa Vitale MD Notes/Report: Acetyl fentanyl: Fentanyl Negative. Acetyl norfentanyl: Fentanyl Negative. Acr yl fentanyl: Fentanyl Negative. Carfentanil: Fentanyl Negative. Para-fluorofent anyl: Fentanyl Negative. OPIATES SCREEN negative 300 ng/mL Oxymorphone Quantification negative 50 ng/mL Fentanyl Quantification negative 1 ng/mL Norfentanyl Quantification negative 8 ng/mL Methadone Quantification negative 100 ng/mL EDDP (Methadone metabolite) Quantification negative 100 ng/mL Tapentadol Quantification negative 50 ng/mL BENZODIAZEPINES SCREEN negative 200 ng/mL AMPHETAMINES SCREEN negative 500 ng/mL COCAINE METABOLITE SCREEN negative 150 ng/mL CANNABINOIDS (cTHC) SCREEN negative 50 ng/mL HEROIN METABOLITE SCREEN negative 10 ng/mL Acetyl fentanyl Quantification Fen Neg 2 ng/mL Acetyl norfentanyl Quantification Fen Neg 5 ng/mL Acryl fentanyl Quantification Fen Neg 1 ng/mL Carfentanil Quantification Fen Neg 2 ng/mL Para-fluorofentanyl Quantification Fen Neg 1 ng/m L Mitragynine (Kratom alkaloid ) Quantification negative 1 ng/mL 0-SN-Prcnvanlsbz (Kratom alk aloid) Quantification negative 1 ng/mL Ethyl Glucuronide Quantification negative 500 ng/m L Ethyl Sulfate Quantification negative 500 ng/mL REASON FOR REFERRAL No Information MEDICATIONS Medication SIG (Take, Route, Frequency, Duration) Notes Start Date End Date Status Meloxicam 7.5 MG 1 tablet Orally Once a day Active Doxycycline Hyclate 100 MG 1 tablet Orally every 12 hrs for 7 days 02/23/2023 Active Belbuca 75 MCG 1 film Bucally every 12 hrs for 30 days MAY FILL 08/31/24 08/14/2024 Active Relistor 150 MG 3 tablets 30 minutes before the first meal of the day Orally Once a day for 30 day(s) 09/17/2020 Active Chlorhexidine Gluconate 4 % as directed Externally Wash with solution the night before your procedure and the morning of your procedure 02/23/2023 Active Carvedilol 3.125 MG 1 tablet with food Orally Twice a day Active Metoprolol Tartrate 25 MG 1 tablet with food Oral Twice a day Active Atorvastatin Calcium 40 MG 1 tablet Orally Once a day Active Jardiance 10 MG 1 tablet Oral Once a day Active Lyrica 75 MG 1 capsule Orally EVERY 12 HOURS for 30 days 05/17/2024 Active Combivent Respimat 20-100 MCG/ACT 1 puff as needed Inhalation every 6 hrs Active Furosemide 20 MG 1 tablet Oral Once a day Active Symbicort 160-4.5 MCG/ACT 1 puff as needed Inhalation every 4 hrs Active Nitroglycerin 0.4 MG as directed Sublingual Once a day Active Narcan 4 MG/0.1ML 1 actuation in one nostril x1, Nasally 2-3 minutes as needed until the patient is responsive or EMS arrives Active Lisinopril 10 MG 1 tablet Orally Once a day Active Ezetimibe 10 MG 1 tablet Oral Once a day Active Incruse Ellipta 62.5 MCG/INH 1 puff Inhalation Once a day Active tiZANidine HCl 2 MG 1 tablet as needed Orally twice daily prn muscle spasms for 30 days Active Lasix 40 MG 1 tablet Orally Once a day Active Xarelto 2.5 MG 1 tablet Oral Once a day Active SOCIAL HISTORY Tobacco Use: Social History Observation Description Date Details (start date - stop date) Former Smoker NA - NA Sex Assigned At : Social History Observation Description Sex Assigned At Unknown Tobacco Use/Smoking Question Answer Notes Are you a former smoker How long has it been since you last smoked? 1-3 months Alcohol Screen (Audit-C) Question Answer Notes Did you have a drink contain ing alcohol in the past year? Yes How often did you have a dri nk containing alcohol in the past year? Monthly or less (1 point) How many drinks did you have on a typical day when you were drinking in the past year? 1 or 2 drinks (0 point) How often did you have 6 or more drinks on one occasion in the past year? Never (0 point) Points 1 Interpretation Negative PROBLEMS Problem Type ICD Code Onset Dates Problem Status W/U Status Risk SNOMED Code Notes Problem Chronic pain syndrome (G89.4) Active confirmed Chronic keith n syndrome (202053018) Problem Spinal enthesopathy, site unspecified (M46.00) Active confirmed Spinal enthesopathy (21178973) Problem Spondylosis without myelopathy or radiculopathy, lumbar region (M47.816) Active confirmed Lumbosacral spondylosis without myelopathy (47807651) Problem Intervertebral disc disorders with radiculopathy, lumbar region (M51.16) Active confirmed Radiculopathy d ue to lumbar intervertebral disc disorder (897593441831575) Problem Other intervertebral disc displacement, lumbar region (M51.26) Active confirmed Displacement of lumbar intervertebral disc without myelopathy (68394072) Problem Radiculopathy, lumbar region (M54.16) Active confirmed Lumbar radiculopathy (445836054) Problem Radiculopathy, lumbosacral region (M54.17) Active confirmed Lumbosacral radiculopathy (3336256) Problem Postlaminectomy syndrome, not elsewhere classified (M96.1) Active confirmed Post-lami nectomy syndrome (75955947) Problem MCC (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 (Z79.891) Active confirmed High risk drug monitoring status (803416484) Problem Drug induced constipation (K59.03) Active confirmed Drug-induced constipation (29793825) Problem Spinal stenosis, lumbar region without neurogenic claudication (M48.061) Active confirmed Spinal stenosis of lumbar region (66049202) Problem Spinal stenosis, lumbar region with neurogenic claudication (M48.062) Active confirmed Neurogenic claudication (826160884) Problem Myalgia, other site (M79.18) Active confirmed Muscle pain (42458928) VITAL SIGNS Heart Rate 82 /min 08/14/2024 Respiratory Rate 18 /min 08/14/2024 Blood pressure diastolic 80 mm Hg 08/14/2024 Height 5 ft 9 in in 08/14/2024 Blood pressure systolic 121 mm Hg 08/14/2024 Weight 204 lbs 08/14/2024 BMI 30.12 kg/m2 08/14/2024 Encounters Encounter Location Date Provider Diagnosis [facility] [address] [place] [phone] 10/12/2023 Rudy Stynowick Radiculopathy, lumba r region M54.16 ; Postlaminectomy syndrome, not elsewhere classified M96.1 ; Radiculopathy, lumbosacral region M54.17 ; Spondylosis without myelopathy or radiculopathy, lumbar region M47.816 and MCC (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 Z79.891 [facility] [address] [place] [phone] 10/26/2023 Rudy Stynowick Postlaminectomy syndrome, not elsewhere classified M96.1 [facility] [address] [place] [phone] 11/20/2023 Rudy Stynowick Radiculopathy, lumba r region M54.16 ; Postlaminectomy syndrome, not elsewhere classified M96.1 ; Radiculopathy, lumbosacral region M54.17 ; Spondylosis without myelopathy or radiculopathy, lumbar region M47.816 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.891 [facility] [address] [facility] [place] [address] 12/18/2023 Rudy Stynowick Radiculopathy, lumba r region M54.16 ; Postlaminectomy syndrome, not elsewhere classified M96.1 ; Radiculopathy, lumbosacral region M54.17 ; Spondylosis without myelopathy or radiculopathy, lumbar region M47.816 and MCC (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 Z79.891 [facility] [address] [place] [address] 12/18/2023 Rudy Stynowick Postlaminectomy syndrome, not elsewhere classified M96.1 [facility] [address] [place] [address] 01/22/2024 Rudy Stynowick Radiculopathy, lumba r region M54.16 ; Postlaminectomy syndrome, not elsewhere classified M96.1 ; Radiculopathy, lumbosacral region M54.17 ; Spondylosis without myelopathy or radiculopathy, lumbar region M47.816 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.891 [facility] [address] [place] [address] 01/26/2024 Rudy Stynowick [facility] [address] [place] [address] 02/21/2024 Rudy Stynowick Radiculopathy, lumba r region M54.16 ; Postlaminectomy syndrome, not elsewhere classified M96.1 ; Radiculopathy, lumbosacral region M54.17 ; Spondylosis without myelopathy or radiculopathy, lumbar region M47.816 and MCC (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 Z79.891 [facility] [address] [place] [phone] 03/04/2024 Rudy Stynowick Radiculopathy, lumba r region M54.16 ; Postlaminectomy syndrome, not elsewhere classified M96.1 ; Radiculopathy, lumbosacral region M54.17 ; Spondylosis without myelopathy or radiculopathy, lumbar region M47.816 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.891 [facility] [address] [place] [phone] 04/10/2024 Rudy Stynowick Radiculopathy, lumba r region M54.16 ; Postlaminectomy syndrome, not elsewhere classified M96.1 ; Radiculopathy, lumbosacral region M54.17 ; Spondylosis without myelopathy or radiculopathy, lumbar region M47.816 and MCC (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 Z79.891 [facility] [address] [place] [phone] 05/08/2024 Rudy Stynowick Radiculopathy, lumba r region M54.16 ; Postlaminectomy syndrome, not elsewhere classified M96.1 ; Radiculopathy, lumbosacral region M54.17 ; Spondylosis without myelopathy or radiculopathy, lumbar region M47.816 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.891 [facility] [address] [place] [phone] 05/17/2024 Rudy Stynowick Radiculopathy, lumba r region M54.16 ; Postlaminectomy syndrome, not elsewhere classified M96.1 ; Radiculopathy, lumbosacral region M54.17 ; Spondylosis without myelopathy or radiculopathy, lumbar region M47.816 and MCC (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 Z79.891 [facility] [address] [place] [phone] 06/17/2024 Rudy Stynowick Radiculopathy, lumba r region M54.16 ; Postlaminectomy syndrome, not elsewhere classified M96.1 ; Radiculopathy, lumbosacral region M54.17 ; Spondylosis without myelopathy or radiculopathy, lumbar region M47.816 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.891 [facility] [address] [place] [address] 07/17/2024 Rudy Stynowick Radiculopathy, lumba r region M54.16 ; Postlaminectomy syndrome, not elsewhere classified M96.1 ; Radiculopathy, lumbosacral region M54.17 ; Spondylosis without myelopathy or radiculopathy, lumbar region M47.816 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.891 [facility] [address] [place] [address] 08/14/2024 Rudy Stynowick Radiculopathy, lumba r region M54.16 ; Postlaminectomy syndrome, not elsewhere classified M96.1 ; Radiculopathy, lumbosacral region M54.17 ; Spondylosis without myelopathy or radiculopathy, lumbar region M47.816 and MCC (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 Z79.891 ASSESSMENTS Encounter Date Diagnosis Assessment Notes Treatment Notes Treatment Clinical Notes 10/12/2023 Radiculopathy, lumbar region (ICD-10 - M54.16) 11/20/2023 Radiculopathy, lumbar region (ICD-10 - M54.16) 10/26/2023 Postlaminectomy syndrome, not elsewhere classified (ICD-10 - M96.1) 12/18/2023 Radiculopathy, lumbar region (ICD-10 - M54.16) 01/22/2024 Radiculopathy, lumbar region (ICD-10 - M54.16) 12/18/2023 Postlaminectomy syndrome, not elsewhere classified (ICD-10 - M96.1) 02/21/2024 Radiculopathy, lumbar region (ICD-10 - M54.16) 03/04/2024 Radiculopathy, lumbar region (ICD-10 - M54.16) 04/10/2024 Radiculopathy, lumbar region (ICD-10 - M54.16) 05/08/2024 Radiculopathy, lumbar region (ICD-10 - M54.16) 05/17/2024 Radiculopathy, lumbar region (ICD-10 - M54.16) 06/17/2024 Radiculopathy, lumbar region (ICD-10 - M54.16) 07/17/2024 Radiculopathy, lumbar region (ICD-10 - M54.16) 08/14/2024 Radiculopathy, lumbar region (ICD-10 - M54.16) 08/14/2024 Radiculopathy, lumbosacral region (ICD-10 - M54.17) 08/14/2024 Postlaminectomy syndrome, not elsewhere classified (ICD-10 [...] to fully comply with the above. The [place] PDMP were reviewed and were appropriate 07/17/2024 Radiculopathy, lumbosacral region (ICD-10 - M54.17) 07/17/2024 Postlaminectomy syndrome, not elsewhere classified (ICD-10 [...] to fully comply with the above. The [facility] PDMP were reviewed and were appropriate 06/17/2024 Radiculopathy, lumbosacral region (ICD-10 - M54.17) 06/17/2024 Postlaminectomy syndrome, not elsewhere classified (ICD-10 [...] to fully comply with the above. The [facility] PDMP were reviewed and were appropriate 05/17/2024 Radiculopathy, lumbosacral region (ICD-10 - M54.17) 05/17/2024 Postlaminectomy syndrome, not elsewhere classified (ICD-10 - [...] to fully comply with the above. The [facility] PDMP were reviewed and were appropriate 05/08/2024 Postlaminectomy syndrome, not elsewhere classified (ICD-10 - [...] to fully comply with the above. The [place] PDMP were reviewed and were appropriate 04/10/2024 Radiculopathy, lumbosacral region (ICD-10 - M54.17) 04/10/2024 Postlaminectomy syndrome, not elsewhere classified (ICD-10 - [...] to fully comply with the above. The [facility] PDMP were reviewed and were appropriate 03/04/2024 Radiculopathy, lumbosacral region (ICD-10 - M54.17) 03/04/2024 Postlaminectomy syndrome, not elsewhere classified (ICD-10 - [...] to fully comply with the above. The [facility] PDMP were reviewed and were appropriate 02/21/2024 Postlaminectomy syndrome, not elsewhere classified (ICD-10 - [...] to fully comply with the above. The [facility] PDMP were reviewed and were appropriate 01/22/2024 Radiculopathy, lumbosacral region (ICD-10 - M54.17) 01/22/2024 Postlaminectomy syndrome, not elsewhere classified (ICD-10 - [...] to fully comply with the above. The [facility] PDMP were reviewed and were appropriate 12/18/2023 Radiculopathy, lumbosacral region (ICD-10 - M54.17) 12/18/2023 Postlaminectomy syndrome, not elsewhere classified (ICD-10 - [...] to fully comply with the above. The [facility] PDMP were reviewed and were appropriate 11/20/2023 Radiculopathy, lumbosacral region (ICD-10 - M54.17) 11/20/2023 Postlaminectomy syndrome, not elsewhere classified (ICD-10 - [...] to fully comply with the above. The [place] PDMP were reviewed and were appropriate 10/12/2023 Radiculopathy, lumbosacral region (ICD-10 - M54.17) 10/12/2023 Postlaminectomy syndrome, not elsewhere classified (ICD-10 - [...] to fully comply with the above. The [place] PD[place] were reviewed and were appropriate 11/20/2023 Spondylosis without myelopathy or radiculopathy, lumbar region (ICD-10 - M47.816) 10/12/2023 Spondylosis without myelopathy or radiculopathy, lumbar region (ICD-10 - M47.816) 12/18/2023 Spondylosis without myelopathy or radiculopathy, lumbar region (ICD-10 - M47.816) 02/21/2024 Radiculopathy, lumbosacral region (ICD-10 - M54.17) 01/22/2024 Spondylosis without myelopathy or radiculopathy, lumbar region (ICD-10 - M47.816) 03/04/2024 Spondylosis without myelopathy or radiculopathy, lumbar region (ICD-10 - M47.816) 04/10/2024 Spondylosis without myelopathy or radiculopathy, lumbar region (ICD-10 - M47.816) 05/08/2024 Radiculopathy, lumbosacral region (ICD-10 - M54.17) 05/17/2024 Spondylosis without myelopathy or radiculopathy, lumbar region (ICD-10 - M47.816) 06/17/2024 Spondylosis without myelopathy or radiculopathy, lumbar region (ICD-10 - M47.816) 07/17/2024 Spondylosis without myelopathy or radiculopathy, lumbar region (ICD-10 - M47.816) 08/14/2024 Spondylosis without myelopathy or radiculopathy, lumbar region (ICD-10 - M47.816) 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) 06/17/2024 [facility] (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 (ICD-10 - Z79.891) 03/04/2024 [facility] (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 (ICD-10 - Z79.891) 01/22/2024 [facility] (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 (ICD-10 - Z79.891) 02/21/2024 Spondylosis without myelopathy or radiculopathy, lumbar region (ICD-10 - M47.816) 12/18/2023 [facility] (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 (ICD-10 - Z79.891) 10/12/2023 [facility] (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 (ICD-10 - Z79.891) 11/20/2023 [facility] (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 (ICD-10 - Z79.891) 02/21/2024 [facility] (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 (ICD-10 - Z79.891) 05/08/2024 [facility] (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 (ICD-10 - Z79.891) 10/12/2023 Other The above-named patient was evaluated in [...] occurred. This note was dictated by BAILEE Velazco 11/20/2023 Other The above-named patient was evaluated in [...] occurred. This note was dictated by BAILEE Velazco 12/18/2023 Other The above-named patient was evaluated in [...] occurred. This note was dictated by BAILEE Velazco 01/22/2024 Other The above-named patient was evaluated in [...] occurred. This note was dictated by BAILEE Velazco 03/04/2024 Other The above-named patient was evaluated in [...] occurred. This note was dictated by BAILEE Velazco 04/10/2024 Other The above-named patient was evaluated in [...] occurred. This note was dictated by BAILEE Velazco 05/17/2024 Other The above-named patient was evaluated in [...] occurred. This note was dictated by BAILEE Velazco 06/17/2024 Other The above-named patient was evaluated [...] with Patient and Medical Decision Makin minutes 07/17/2024 Other The above-named patient was evaluated [...] with Patient and Medical Decision Makin minutes 08/14/2024 Other The above-named patient was evaluated [...] Medical Decision Makin minutes PLAN OF TREATMENT Pending Test Test Name Order Date MRI : Lumbar Spine with and without Cont rast (21578) 11/06/2020 [facility] Results 03/03/2022 [facility] Results 04/12/2023 [facility] Results 07/07/2023 [facility] Results 09/01/2023 [facility] Results 01/23/2024 [facility] Results 04/10/2024 [facility] Results 05/17/2024 Next Appt Details Provider Name:Rudy coelho, 10/02/2024 02:30:00 PM, [address] [place], [address], Insurance Providers Payer Name Payer Address Payer Phone Subscriber Number Group Number Insured Name Patient Relationship to Insured Coverage Start Date Coverage End Date [facility] [address] [place] [address] [id number] CLOVIS JENNIFER Self - patient is the insured MEDICAL (GENERAL) HISTORY Medical History History ICD Code Hypertension Coronary arteriosclerosis Stented coronary artery GERD Hyperlipidemia Surgical History Surgery Date(Month/Year) Lumbar laminectomy 2000
--- OUTSIDE RECORDS SUMMARY | 2024-09-27 10:36 | XMS_ITS | Encounter Summary ---
Author Organization [facility] Address [address] [place] [address]. [place], [place] [address] [place] [address] Care Team Providers Care Back End Developer Name Role Phone Doc Jiang MD Primary Care Provider [phone] Jacky Martinez MD Unavailable [phone] Huey Camarillo MD Unavailable Reason for Referral * Imaging (Routine) - Closed Specialty Diagnoses / Procedures Referred By Contac t Referred To Contact RADIOLOGY Diagnoses Leg edema, left Procedures USV KISHOR DUPLEX LOW EXT LT William Garcias DO Phone: tel: fax: Referral ID Status Reason Start Date Expiration Date Visits Re quested Visits Authorized [id number] Closed 11/14/2020 12/12/2021 1 1 OR MATERIALS PLANNER Reason for Visit * Imaging (Routine) - Closed Specialty Diagnoses / Procedures Referred By Eleonoraac elizabeth Referred To Contact RADIOLOGY Diagnoses Leg edema, left Procedures USV KISHOR DUPLEX LOW EXT LT William Garcias DO Phone: tel: fax: Referral ID Status Reason Start Date Expiration Date Visits Re quested Visits Authorized [id number] Closed 11/14/2020 12/12/2021 1 1 Encounter Details Date Type Department Care Team (Latest Contact Info) Description 11/14/2020 10:00 AM SENIOR MATERIALS PLANNER - 11/14/2020 11:59 PM SENIOR MATERIALS PLANNER Hospital Encounter [facility] [address] [place] [address] William Garcias, DO [address] [place] [address] Discharge Disposition: Home or Self Care (Routine [...] on file Legal Sex Male 10:23 PM SENIOR MATERIALS PLANNER Gender Identity Not on file Sexual Orientation Not on file COVID-19 Exposure Response Date Recorded In the last month, have you been in contact with someone who was confirmed or suspected to have Coronavirus / COVID-19? No / Unsure 11/13/2020 9:28 PM SENIOR MATERIALS PLANNER documented as of this encounter Medications at Time of Discharge [...] tablet Take 5 mg by mouth daily. pregabalin 75 MG capsule Take 1 capsule (75 mg total) by mouth 2 (two) times daily. tiZANidine 2 MG tablet Take 2 mg by mouth every 6 (six) hours as needed. carvedilol 3.125 MG tablet Take 3.125 mg by mouth 2 (two) times daily. 07/04/2020 3 COMBIVENT RESPIMAT 20-100 MCG/ACT inhaler INHALE 1 PUFF BY MOUTH 4 TIMES DAILY FOR CHRONIC OBSTRUCTIVE PULMONARY DISEASE 08/13/2020 2 lisinopril 10 MG tablet 09/07/2020 3 Umeclidinium [place] (INCRUSE ELLIPTA) 62.5 MCG/INH AEROSOL POWDER, BREATH ACTIVATED 2 documented as of this encounter Plan of Treatment Not on file documented as of this encounter Procedures Procedure Name Priority Date/Time Associated Diagnosis Comments USV KISHOR DUPLEX LOW EXT LT Routine 11/14/2020 10:39 AM SENIOR MATERIALS PLANNER Leg edema, left documented in this encounter Results * USV KISHOR DUPLEX LOW EXT LT (11/14/2020 10:39 AM SENIOR MATERIALS PLANNER) Anatomical Region Laterality Modality Ultrasound 11/14/2020 10:3 3 AM SENIOR MATERIALS PLANNER Impressions 11/14/2020 10:34 AM SENIOR MATERIALS PLANNER IMPRESSION: No evidence of deep venous thrombosis. Interpreted By: Pj Ruiz MD, 11/14/2020 10:33 AM Narrative 11/14/2020 10:34 AM SENIOR MATERIALS PLANNER Examination: Left lower extremity venous color Doppler ultrasound. Exam time: 1018 hours. Clinical history: Swelling. ??Elevated d-dimer. Comparison: None. Technique: Grayscale and color Doppler images including spectral analysis. Findings: Color Doppler evaluation of the deep veins of the left lower extremity demonstrates normal appearing color flow, spectra and compressibility throughout. No intraluminal filling defects are identified. Procedure Note Pj Ruiz MD - 11/14/2020 Examination: Left lower extremity venous color Doppler ultrasound. Exam time: 1018 hours. Clinical history: Swelling. Elevated d-dimer. Comparison: None. Technique: Grayscale and color Doppler images including spectralanalysis. Findings: Color Doppler evaluation of the deep veins of the left lowerextremity demonstrates normal appearing color flow, spectra andcompressibility throughout. No intraluminal filling defects areidentified. IMPRESSION: No evidence of deep venous thrombosis. Interpreted By: Pj Ruiz MD, 11/14/2020 10:33 AM us William Garcias DO US VASC Final Result documented in this encounter Visit Diagnoses Diagnosis Leg edema, left Edema documented in this encounter Care Teams Back End Developer Relationship Specialty Start Date End Date Doc Jiang MD [address] [place] [phone] PCP - General FAMILY PRACTICE 03/21/20 Jacky Martinez MD [address] [place] [address] Consulting Physician INTERVENTIONAL CARDIOLOGY 04/23/20 Huey Camarillo MD [address] [place] [address] Vascular/Gas Regulator Repairer INTERNAL MEDICINE 08/13/20 documented as of this encounter
--- OUTSIDE RECORDS SUMMARY | 2024-09-27 10:36 | XMS_ITS | Encounter Summary ---
Author Organization [facility] Address [address] [place] [address]. [place] [address] [place] [address] Care Team Providers Care Government Auditor Name Role Phone Doc Jiang MD Primary Care Provider Jacky Martinez MD Unavailable [phone] Reason for Visit * Reason Onset Date Comments No Show 06/03/2020 Encounter Details Date Type Department Care Team (Late st Contact Info) Description 06/03/2020 Telephone [facility] [address] [place] [address] Jacky Martinez MD [address] [facility] [address] [place] [address] No Show Social History Tobacco Use Types Packs/Day Years Used Date Smoking Tobacco: Former Smokeless Tobacco: Never Alcohol Use Standard Drinks/Week Comments Not Currently 0 (1 standard drink = 0.6 oz pur e alcohol) AUDIT-C Answer Date Recorded Frequency of Alcohol Consumption Never 04/05/2020 Average Number of Drinks Not on file 020 Frequency of Binge Drinking Not on file 03/25 Sex and Gender Information Value Date Recorded Sex Assigned at Not on file Legal Sex Male 10:23 PM CHART PICKER Gender Identity Not on file Sexual Orientation Not on file documented as of this encounter Progress Notes * Michaela Benavides - 06/03/2020 11:33 AM CDT I called Dr. Jiang's office, spoke with Kaylan. Advised her patient was referred to [facility] by Dr. Jiang, and patient rescheduled 2 consult appts, then failed to show for the third one. Advised her wewill not be contacting the patient further, but if Dr. Jiang wants the patient seen he can be rescheduled. documented in this encounter Plan of Treatment Not on file documented as of this encounter Visit Diagnoses Not on filedocumented in this encounter Care Teams Government Auditor Relationship Specialty Start Date End Date Doc Jiang MD [address] [place] [address] PCP - General FAMILY PRACTICE 03/21/20 Jacky Martinez MD [address] [facility] [address] [place] [address] Consulting Physician INTERVENTIONAL CARDIOLOGY 04/23/20 documented as of this encounter
--- OUTSIDE RECORDS SUMMARY | 2024-09-27 10:36 | XMS_ITS | Encounter Summary ---
Author Organization [facility] - [facility] Address [address] [place] [address]. [place] [address] [place] [address] Care Team Providers Care Soils Technician Name Role Phone Doc Jiang MD Primary Care Provider [phone] Jacky Martinez MD Unavailable [phone] Huey Camarillo MD Unavailable Encounter Details Date Type Department Care Team (Latest Contact Info) Description 11/12/2021 Travel Social History Tobacco Use Types Packs/Day [...] on file Legal Sex Male 10:23 PM DRUG ENFORCEMENT AGENT Gender Identity Not on file Sexual Orientation Not on file COVID-19 Exposure Response Date Recorded In the last 10 days, have yo u been in contact with someone who was confirmed or suspected to have Coronavirus/COVID-19? No / Unsure 11/12/2021 8:12 AM DRUG ENFORCEMENT AGENT documented as of this encounter Plan of Treatment Not on file documented as of this encounter Visit Diagnoses Not on filedocumented in this encounter Care Teams Soils Technician Relationship Specialty Start Date End Date Doc Jiang MD [address] [place] [phone] PCP - General FAMILY PRACTICE 03/21/20 Jacky Martinez MD [address] [place] [address] Consulting Physician INTERVENTIONAL CARDIOLOGY 04/23/20 Huey Camarillo MD [address] [place] [address] Vascular/Manager Investigations INTERNAL MEDICINE 08/13/20 documented as of this encounter
--- OUTSIDE RECORDS SUMMARY | 2024-09-27 10:36 | XMS_ITS | Encounter Summary ---
Author Organization [facility] Address [address] [place] [address]. [place], [place] [address] [place] [address] Care Team Providers Care Break Off Worker Name Role Phone Doc Jiang MD Primary Care Provider Jacky Martinez MD Unavailable [phone] Huey Camarillo MD Unavailable Reason for Referral * Imaging (Routine) - Closed Specialty Diagnoses / Procedures Referred By Contac t Referred To Contact RADIOLOGY Diagnoses Varicose veins of lower extremities with complications, bilateral Procedures USV VENOUS REFLUX LOW NENA Huey Camarillo MD [address] [place] [address] Phone: tel: fax: Referral ID Status Reason Start Date Expiration Date Visits Re quested Visits Authorized [id number] Closed 09/08/2020 10/09/2021 1 1 TH COUNSELOR Reason for Visit * Imaging (Routine) - Closed Specialty Diagnoses / Procedures Referred By Sue johnson Referred To Contact RADIOLOGY Diagnoses Varicose veins of lower extremities with complications, bilateral Procedures USV VENOUS REFLUX LOW NENA Huey Camarillo MD [address] [place] [address] Phone: tel: fax: Referral ID Status Reason Start Date Expiration Date Visits Re quested Visits Authorized [id number] Closed 09/08/2020 10/09/2021 1 1 Encounter Details Date Type Department Care Team (Latest Contact Info) Description 12/04/2020 12:52 PM HEALTH COUNSELOR - 12/04/2020 11:59 PM HEALTH COUNSELOR Hospital Encounter [facility] [address] [place] [address] Huey Camarillo MD [address] [place] [address] Discharge Disposition: Home or Self Care (Routine Discharge) Social History Tobacco Use Types Packs/Day Years Used Date Smoking Tobacco: Former Smokeless Tobacco: Never Alcohol Use Standard Drinks/Week Comments Yes 0 (1 standard drink = 0.6 oz pur e alcohol) occasional AUDIT-C Answer Date Recorded Frequency of Alcohol Consumption Never 04/05/2020 Average Number of Drinks Not on file Frequency of Binge Drinking Not on file 03/25 Sex and Gender Information Value Date Recorded Sex Assigned at Not on file Legal Sex Male 10:23 PM HEALTH COUNSELOR Gender Identity Not on file Sexual Orientation Not on file COVID-19 Exposure Response Date Recorded In the last month, have you been in contact with someone who was confirmed or suspected to have Coronavirus / COVID-19? No / Unsure 12/04/2020 12:50 PM HEALTH COUNSELOR documented as of this encounter Medications at [...] lisinopril 10 MG tablet 09/07/2020 3 Umeclidinium [place] (INCRUSE ELLIPTA) 62.5 MCG/INH AEROSOL POWDER, BREATH ACTIVATED 2 documented as of this encounter Plan of Treatment Not on file documented as of this encounter Procedures Procedure Name Priority Date/Time Associated Diagnosis Comments USV VENOUS REFLUX LOW NENA Routine 12/04/2020 2:21 PM HEALTH COUNSELOR Varicose veins of lower extremities with complications, bilateral documented in this encounter Results * USV VENOUS REFLUX LOW NENA (12/04/2020 2:21 PM HEALTH COUNSELOR) Anatomical Region Laterality Modality Extremity Ultrasound 12/04/2020 1:37 PM HEALTH COUNSELOR Narrative 12/04/2020 2:28 PM HEALTH COUNSELOR ?Vascular Report Pat.Name: ??CLOVIS, SCOTT ? Pat.ID: ?[id number] ? St.Date: ?? 12/04/2020 ? Refer.: ??HUEY CAMARILLO ? Exam Time: 1:37:00 PM ? Study Type:PVI VENOUS DUPLEX SCAN REFLUX BILAT ??Age: ??1970,49Y ? Sex: ? MALE ? Sonogrphr: Maribel Nichole. Stat.:Outpatient ? ICD - 9: ?? R60.9 Limb Edema ? CPT - 4: ?34318 Venous Duplex LE/UE Reason for Study: Edema ? Race: ?W ? ++++++++++++++++++++++++++++++++++++ FINDINGS: ++++++++++++++++++++++++++++++++++++ Bilat: ?No evidence of acute or chronic thrombosis noted in the deep ?or ??superficial veins in either lower extremity. Reflux Rt Low Ext: No evidence of deep or superficial venous reflux ?noted. Reflux Lt Low Ext: No evidence of deep or superficial venous reflux ?noted. Reflux Comments: Reflux portion of exam was performed with patient in ?the ??upright position. Comments: Incidental finding of possible Thompson's cyst in right ?popliteal ??fossa noted. ++++++++++++++++++++++++++++++++++++ MEASUREMENTS: ++++++++++++++++++++++++++++++++++++ ?REFLUX Right CFV ?? CFV ?0 sec ? Right Prox FV ?? Prox FV ?0 sec ? Right Mid FV ?? Mid FV ? 0 sec ? Right Dist FV ?? Dist FV ?0 sec ? Right Pop V ?? Pop V ?0 sec ? Right SFJ ?? GSV SFJ ?7.7 mm ?GSV SFJ ?0 sec Right Prox Thigh ?? GSV Prox Thigh ? 3 mm ?GSV Prox Thigh ? 0 sec Right Mid Thigh ?? GSV Mid Thigh ?3 mm ?GSV Mid Thigh ?0 sec Right Dist Thigh ?? GSV Dist Thigh ?? 3.9 mm ?GSV Dist Thigh ? 0 sec Right Knee ?? GSV Knee ? 3.3 mm ?GSV Knee ? 0 sec Right Mid Calf ?? GSV Mid Calf ? 3.1 mm ?GSV Mid Calf ? 0 sec Right Dist Calf ?? GSV Dist Calf ?0 sec ? Right Mid ?? SSV Mid ?2 mm ?SSV Mid ?0 sec Right Dist ?? SSV Dist ? 0 sec ? Right Prox ?? SSV Prox ? 2.3 mm ?SSV Prox ? 0 sec Right Prox Calf ?? GSV Prox Calf ?3.5 mm ?GSV Prox Calf ?0 sec Left CFV ?? CFV ?0 sec ? Left Prox FV ?? Prox FV ?0 sec ? Left Mid FV ?? Mid FV ? 0 sec ? Left Dist FV ?? Dist FV ?0 sec ? Left Pop V ?? Pop V ?0 sec ? Left SFJ ?? GSV SFJ ?8.8 mm ?GSV SFJ ?0 sec Left Prox Thigh ?? GSV Prox Thigh ?? 4.9 mm ?GSV Prox Thigh ? 0 sec Left Mid Thigh ?? GSV Mid Thigh ?3.9 mm ?GSV Mid Thigh ?0 sec Left Dist Thigh ?? GSV Dist Thigh ?? 3.5 mm ?GSV Dist Thigh ? 0 sec Left Knee ?? GSV Knee ? 3.2 mm ?GSV Knee ? 0 sec Left Prox Calf ?? GSV Prox Calf ?2.6 mm ?GSV Prox Calf ?0 sec Left Mid Calf ?? GSV Mid Calf ? 2.9 mm ?GSV Mid Calf ? 0 sec Left Dist Calf ?? GSV Dist Calf ?0 sec ? Left Dist ?? SSV Dist ? 0 sec ? Left Mid ?? SSV Mid ?1.6 mm ?SSV Mid ?0 sec Left Prox ?? SSV Prox ? 2.6 mm ?SSV Prox ? 0 sec Left SPJ ?? SPJ ?0 mm ?SPJ ?0 sec Right SPJ ?? SPJ ?0 mm ?SPJ ?0 sec Signed 12/04/2020 02:28 PM Huey Camarillo M.D. Procedure Note Huey Camarillo MD - 12/04/2020 Vascular Report Pat.Name: SCOTT SANCHEZ.ID: [id number] .Date: 12/04/2020 Refer.MD: HUEY CAMARILLO Exam Time: 1:37:00 PM Study Type:PVI VENOUS DUPLEX SCAN REFLUX BILAT Age: 2 1970,49Y Sex: MALE Sonogrphr: Jonas Castillo RVTPat. Stat.:Outpatient ICD - 9: R60.9 Limb Edema CPT - 4: 50841 Venous Duplex LE/UE Reason for Study: Edema Race: W ++++++++++++++++++++++++++++++++++++ FINDINGS: ++++++++++++++++++++++++++++++++++++ Bilat: No evidence of acute or chronic thrombosis noted in the deep or superficial veins in either lower extremity. Reflux Rt Low Ext: No evidence of deep or superficial venous reflux noted. Reflux Lt Low Ext: No evidence of deep or superficial venous reflux noted. Reflux Comments: Reflux portion of exam was performed with patient in the upright position. Comments: Incidental finding of possible Thompson's cyst in right popliteal fossa noted. ++++++++++++++++++++++++++++++++++++ MEASUREMENTS: ++++++++++++++++++++++++++++++++++++ REFLUX Right CFV CFV 0 sec Right Prox FV Prox FV 0 sec Right Mid FV Mid FV 0 sec Right Dist FV Dist FV 0 sec Right Pop V Pop V 0 sec Right SFJ GSV SFJ 7.7 mm GSV SFJ 0 sec Right Prox Thigh GSV Prox Thigh 3 mm GSV Prox Thigh 0 sec Right Mid Thigh GSV Mid Thigh 3 mm GSV Mid Thigh 0 sec Right Dist Thigh GSV Dist Thigh 3.9 mm GSV Dist Thigh 0 sec Right Knee GSV Knee 3.3 mm GSV Knee 0 sec Right Mid Calf GSV Mid Calf 3.1 mm GSV Mid Calf 0 sec Right Dist Calf GSV Dist Calf 0 sec Right Mid SSV Mid 2 mm SSV Mid 0 sec Right Dist SSV Dist 0 sec Right Prox SSV Prox 2.3 mm SSV Prox 0 sec Right Prox Calf GSV Prox Calf 3.5 mm GSV Prox Calf 0 sec Left CFV CFV 0 sec Left Prox FV Prox FV 0 sec Left Mid FV Mid FV 0 sec Left Dist FV Dist FV 0 sec Left Pop V Pop V 0 sec Left SFJ GSV SFJ 8.8 mm GSV SFJ 0 sec Left Prox Thigh GSV Prox Thigh 4.9 mm GSV Prox Thigh 0 sec Left Mid Thigh GSV Mid Thigh 3.9 mm GSV Mid Thigh 0 sec Left Dist Thigh GSV Dist Thigh 3.5 mm GSV Dist Thigh 0 sec Left Knee GSV Knee 3.2 mm GSV Knee 0 sec Left Prox Calf GSV Prox Calf 2.6 mm GSV Prox Calf 0 sec Left Mid Calf GSV Mid Calf 2.9 mm GSV Mid Calf 0 sec Left Dist Calf GSV Dist Calf 0 sec Left Dist SSV Dist 0 sec Left Mid SSV Mid 1.6 mm SSV Mid 0 sec Left Prox SSV Prox 2.6 mm SSV Prox 0 sec Left SPJ SPJ 0 mm SPJ 0 sec Right SPJ SPJ 0 mm SPJ 0 sec Signed 12/04/2020 02:28 PM Huey Camarillo M.D. us Huey Camarillo MD VASC Final Result documented in this encounter Visit Diagnoses Diagnosis Varicose veins of lower extremities with complications, bilateral documented in this encounter Care Teams Break Off Worker Relationship Specialty Start Date End Date Doc Jiang MD [address] [place] [address] PCP - General FAMILY PRACTICE 03/21/20 Jacky Martinez MD [address] [facility] [address] [place] [address] Consulting Physician INTERVENTIONAL CARDIOLOGY 04/23/20 Huey Camarillo MD [address] [place] [address] Vascular/Database Admin INTERNAL MEDICINE 08/13/20 documented as of this encounter
--- OUTSIDE RECORDS SUMMARY | 2024-09-27 10:36 | XMS_ITS | Encounter Summary ---
Author Organization [facility] Address [facility] [place] [address] [place] [address] Care Team Providers Care Brancher Name Role Phone Doc Jiang MD Primary Care Provider Jacky Martinez MD Unavailable [phone] Huey Camarillo MD Unavailable Reason for Visit * Reason Comments Chest Pain Encounter Details Date Type Department Care Team (Late st Contact Info) Description 11/12/2021 7:35 AM TYPESETTING MACHINE OPERATOR/TENDER - 11/12/2021 10:25 AM [facility] Emergency [facility] [place] [address] Ofelia Yanez MD [address] [place] [address] [id number] Chest Pain Discharge Disposition: Home or Self [...] on file Legal Sex Male 10:23 PM TYPESETTING MACHINE OPERATOR/TENDER Gender Identity Not on file Sexual Orientation Not on file COVID-19 Exposure Response Date Recorded In the last 10 days, have yo u been in contact with someone who was confirmed or suspected to have Coronavirus/COVID-19? No / Unsure 11/12/2021 8:12 AM TYPESETTING MACHINE OPERATOR/TENDER documented as of this encounter Last Filed Vital Signs Vital Sign Reading Time Taken Comments Blood Pressure 123/71 11/12/2021 9:00 AM TYPESETTING MACHINE OPERATOR/TENDER Pulse 60 11/12/2021 9:00 AM TYPESETTING MACHINE OPERATOR/TENDER Temperature 36.6 ??C (97.8 ??F) 11/12/2021 7:39 AM CS T Respiratory Rate 13 11/12/2021 9:00 AM TYPESETTING MACHINE OPERATOR/TENDER Oxygen Saturation 92% 11/12/2021 9:00 AM TYPESETTING MACHINE OPERATOR/TENDER Inhaled Oxygen Concentration - - Weight 98.9 kg (218 lb) 11/12/2021 7:39 AM TYPESETTING MACHINE OPERATOR/TENDER Height 175.3 cm (5' 9 ) 11/12/2021 7:39 AM TYPESETTING MACHINE OPERATOR/TENDER Body Mass Index 32.19 11/12/2021 7:39 AM TYPESETTING MACHINE OPERATOR/TENDER documented in this encounter Discharge Instructions * Discharge Instructions* Ofelia Yanez MD - 11/12/2021 8:31 AM TYPESETTING MACHINE OPERATOR/TENDER Please come back a week from today for your stress test. SETTING MACHINE OPERATOR/TENDER * Attachments The following attachments cannot be sent through Care Everywhere. * Chest Pain (Greek) * Nuclear Heart Testing (Greek) documented in this encounter Medications at Time [...] mouth every 6 (six) hours as needed. aspirin 81 MG chewable tablet Chew 81 mg by mouth daily. 3 carvedilol 3.125 MG tablet Take 3.125 mg by mouth 2 (two) times daily. 07/04/2020 3 lisinopril 10 MG tablet 09/07/2020 3 documented as of this encounter ED Notes * Ofelia Yanez MD - 11/12/2021 7:30 AM CST eMERGENCY dEPARTMENT eNCOUnter CHIEF COMPLAINT Chief Complaint Patient presents with ??? Chest Pain HPI HPI Scott Sanchez is a 50-year-old male who presents to the ER with a complaint of chest pain. Patient states for last several days he has been getting episodic chest pain last a few seconds at a time but is quite frequent. It happens at rest and is also worse when he exerts himself. It is on the left side of his chest rating to left arm. He has a history of coronary artery disease with stents and states it has been 4 to 5 years since he last had an evaluation by cardiology. He is on aspirin but no other blood thinners. He has not notified anybody from [facility] which is where he was last seen for his heart problems. No shortness of breath recent illness or other complaints. No pain currently. ALLERGIES Allergies Allergen Reactions ??? Cortizone-10 [Hydrocortisone] Other (see comment) Dermatologicals ??? Flagyl [Metronidazole] Hives and Itching CURRENT MEDICATIONS Current Outpatient Medications Medication Sig ??? aspirin 81 MG chewable tablet Chew 81 mg by mouth daily. ??? nitroglycerin 0.[address] 1 tablet (0.4 mg total) under the tongue every 5 (five) minutes as needed for Chest Pain. ??? albuterol (2.5 MG/3ML) 0.083% nebulizer solution Take 3 mLs (2.5 mg total) by nebulization every 6 (six) hours as needed for Wheezing. ??? albuterol sulfate HFA 108 (90 Base) MCG/ACT inhaler Inhale 2 puffs into the lungs every 6 (six)hours as needed for Wheezing. ??? budesonide-formoterol 160-4.5 MCG/ACT inhaler Inhale 2 puffs into the lungs 2 (two) times daily. ??? Buprenorphine HCl (BELBUCA) [address] 1 Film inside cheek. Indications: 75 mcg ??? carvedilol 3.125 MG tablet Take 3.125 mg by mouth 2 (two) times daily. ??? COMPRESSION STOCKINGS 20-30 MMHG Compression stockings, knee-high, open or closed toe Dx: I83.893 ??? fenofibrate 145 MG tablet ??? furosemide 20 MG tablet Take 20 mg by mouth daily. Indications: 1-2 daily prn ??? lisinopril 10 MG tablet ??? metOLazone 5 MG tablet Take 5 mg by mouth daily. ??? pregabalin 75 MG capsule Take 75 mg by mouth 2 (two) times daily. ??? tiZANidine 2 MG tablet Take 2 mg by mouth every 6 (six) hours as needed. PAST MEDICAL HISTORY Past Medical History: Diagnosis Date ??? Bilateral lower extremity edema ??? Congestive heart failure (CMS/HCC) ??? COPD (chronic obstructive pulmonary disease) (CMS/HCC) ??? Coronary artery disease ??? GERD (gastroesophageal reflux disease) ??? Hypertension ??? Mixed hyperlipidemia SURGICAL HISTORY Past Surgical History: Procedure Laterality Date ??? BACK SURGERY ??? CORONARY ANGIOPLASTY 2014 ??? KNEE SURGERY SOCIAL HISTORY Social History Socioeconomic History ??? Marital status: Spouse name: Ilsa ??? Number of children: Not on file ??? Years of education: Not on file ??? Highest education level: Not on file Occupational History ??? Not on file Tobacco Use ??? Smoking status: Former Smoker ??? Smokeless tobacco: Never Used Substance and Sexual Activity ??? Alcohol use: Yes Comment: occasional ??? Drug use: Not Currently ??? Sexual activity: Not on file Other Topics Concern ??? Exercise No ??? Special Diet No ??? Caffeine Concern No Social History Narrative ??? Not on file Social Determinants of Health Financial Resource Strain: Not on file Food Insecurity: Not on file Transportation Needs: Not on file Physical Activity: Not on file Stress: Not on file Social Connections: Not on file Intimate Partner Violence: Not on file FAMILY HISTORY No family history on file. REVIEW OF SYSTEMS Review of Systems All other ROS negative unless noted above in HPI. PHYSICAL EXAM Physical Exam Filed Vitals: 11/12/21 0739 11/12/21 0800 11/12/21 0830 11/12/21 0900 BP: 122/84 123/71 Pulse: 70 68 68 60 Resp: 16 13 11 13 Temp: 97.8 ??F (36.6 ??C) TempSrc: Temporal SpO2: 96% 94% 96% 92% Weight: 98.9 kg (218 lb) Height: 5' 9 (1.753 m) The patient is a well developed and well nourished adult male in no distress, alert and oriented. HEENT: PERRL, EOMI Throat without lesions, mucous membranes moist NECK: Supple without adenopathy or rigidity CHEST: Lungs clear and equal to auscultation Heart regular rate and rhythm without murmur ABD: Soft, NABS, non tender EXT: No clubbing, cyanosis, edema NEURO: CN II-XII intact, no focal weakness SKIN: No rash or significant lesions EKG EKG shows normal sinus rhythm without ischemic changes RADIOLOGY XR CHEST PORTABLE Final Result by User, [id number] (11/12 5545) Examination: Chest radiograph Exam time: 11/12/2021 7:47 AM Clinical history: Chest pain. Comparison: 07/10/2020 Technique: One view of the chest obtained. Findings: Normal heart size and pulmonary vascularity. No consolidations, pleural effusions, or definite pneumothorax. Degenerative changes. IMPRESSION: No acute findings. Ordered By: OFELIA YANEZ Interpreted By: Slick Hand MD, 11/12/2021 7:48 AM LABS Results for orders placed or performed during the hospital encounter of 11/12/21 CBC W/DIFF AUTOMATED Result Value Ref Range WBC 7.9 4.0 - 10.8 x10'3/uL RBC 4.59 4.50 - 6.10 x10'6/uL HGB 14.4 13.0 - 18.0 G/DL HCT 41.8 37.0 - 52.0 % MCV 91.1 78.0 - 100.0 FL MCH 31.4 (H) 27.0 - 31.0 PG MCHC 34.4 33.0 - 36.0 G/DL RDW 14.0 11.5 - 14.5 % PLT 248 150 - 350 x10'3/uL MPV 9.7 7.4 - 10.4 FL Differential Comment NORMAL REFERENCE RANGE NOT ESTABLISHED FOR THE PROPORTIONAL LEUKOCYTE DIFFERENTIAL. SEG NEUTROPHILS 59.5 % LYMPHOCYTES 30.5 % MONOCYTES 8.4 % EOSINOPHILS 0.9 % BASOPHILS 0.4 % IMMATURE GRANS 0.3 % NRBC 0.0 % ABS. NEUTROPHILS 4.70 1.60 - 8.30 x10'3/uL ABS. LYMPHOCYTES 2.41 0.80 - 4.70 x10'3/uL ABS. MONOCYTES 0.66 0.00 - 1.50 x10'3/uL ABS. EOSINOPHILS 0.07 0.00 - 0.40 x10'3/uL ABS. BASOPHILS 0.03 0.00 - 0.20 x10'3/uL ABS. IMMATURE GRANULOCYTES 0.02 0.00 - 0.03 x10'3/uL ABS. NUCLEATED RBC'S 0.00 0.00 x10'3/uL COMPREHENSIVE METABOLIC PANEL Result Value Ref Range SODIUM 140 136 - 145 MMOL/L POTASSIUM 4.1 3.5 - 5.1 MMOL/L CHLORIDE S/P/B 104 98 - 107 MMOL/L CO2 29.5 21.0 - 32.0 MMOL/L GLUCOSE 97 70 - 99 MG/DL BUN 11 6 - 24 MG/DL CREATININE S/P/B 1.02 0.70 - 1.30 MG/DL CALCIUM 8.7 8.4 - 10.5 MG/DL BILIRUBIN TOTAL S/P/B 0.2 0.2 - 1.0 MG/DL ALKALINE PHOSPHATASE S/P/B 45 45 - 115 U/L AST 22 15 - 37 U/L ALT 40 16 - 63 U/L TOTAL PROTEIN S/P/B 6.8 6.4 - 8.2 G/DL ALBUMIN S/P/B 3.7 3.4 - 5.0 G/DL ANION GAP 6.5 5.0 - 15.0 MMOL/L OSMOLALITY (CALC) 289 MOSM/KG eGFR Non-Afr. Amer. 85 (L) >89 ML/MIN/1.73 M2 eGFR Afr. Amer. >90 >89 ML/MIN/1.73 M2 GFR NOTES GFR REFERENCES: TROPONIN, QUANT Result Value Ref Range TROPONIN I 4 0 - 76 ng/L PROTIME/INR, VENOUS Result Value Ref Range Protime 11.7 10.2 - 12.9 SEC INR 1.0 0.9 - 1.1 PARTIAL THROMBOPLASTIN TIME,PTT Result Value Ref Range PTT 33.7 25.1 - 36.5 SEC TROPONIN, QUANT Result Value Ref Range TROPONIN I 5 0 - 76 ng/L ED MEDICATIONS Medications - No data to display PROCEDURES Procedures CONSULTS: ED COURSE & MEDICAL DECISION MAKING MDM Work-up is unremarkable in the emergency department. We will repeat his troponin II hours but symptoms are somewhat atypical even though he is clearly is at risk for recurrent heart disease. We were able to schedule a stress test for this coming Monday for him as an outpatient but the patient states he cannot get off of his job even if I write a note and states he cannot come until a week from today. Katarzyna was able to schedule him for nuclear stress test on that date. I will represcribe nitroglycerin for him as what he has is in case he gets recurrent symptoms, and otherwise if he remains stable he will be here next week for a stress test. FINAL IMPRESSION SNOMED CT(R) 1. Chest pain CHEST PAIN Doc Jiang MD [address] [place] [phone] Schedule an appointment as soon as possible for a visit New Prescriptions NITROGLYCERIN 0.[address] 1 tablet (0.4 mg total) under the tongue every 5 (five) minutes as needed for Chest Pain. Ofelia Yanez MD 11/12/21 1016 SETTING MACHINE OPERATOR/TENDER * Analy Kilgore RN - 11/12/2021 7:30 AM CST In with left chest pain, that radiates to left arm, states that he has been experiencing this for 3days, states the pain is worse with activity, also c/o sob. States he has a hx of MA 5 years ago, has 3 stents. SETTING MACHINE OPERATOR/TENDER documented in this encounter Plan of Treatment Not on file documented as of this encounter Procedures Procedure Name Priority Date/Time Associated Diagnosis Comments TROPONIN, QUANT TIMED 11/12/2021 9:25 AM TYPESETTING MACHINE OPERATOR/TENDER XR CHEST PORTABLE STAT 11/12/2021 7:4 7 AM TYPESETTING MACHINE OPERATOR/TENDER PARTIAL THROMBOPLASTIN TIME,PTT STAT 11/12/2021 7:41 AM TYPESETTING MACHINE OPERATOR/TENDER PROTHROMBIN TIME, VENOUS STAT 11/12/2021 7:41 AM TYPESETTING MACHINE OPERATOR/TENDER COMPREHENSIVE METABOLIC PANEL STAT 11/12/2021 7:41 AM TYPESETTING MACHINE OPERATOR/TENDER CBC W/DIFF AUTOMATED STAT 11/12/2021 7:41 AM TYPESETTING MACHINE OPERATOR/TENDER TROPONIN, QUANT STAT 11/12/2021 7:41 AM TYPESETTING MACHINE OPERATOR/TENDER ECG 12-LEAD Routine 11/12/2021 7:30 AM TYPESETTING MACHINE OPERATOR/TENDER documented in this encounter Results * TROPONIN, QUANT (11/12/2021 9:25 AM TYPESETTING MACHINE OPERATOR/TENDER) TROPONIN I 5 0 - 76 ng/L 11/12/2021 10:11 AM TYPESETTING MACHINE OPERATOR/TENDER [facility] 11/12/2021 9:25 AM TYPESETTING MACHINE OPERATOR/TENDER us Ofelia Yanez MD LABORATORY Final Result [facility] [address] [place] [address], * XR CHEST PORTABLE (11/12/2021 7:47 AM TYPESETTING MACHINE OPERATOR/TENDER) Anatomical Region Laterality Modality Chest Radiographic Carmella ging 11/12/2021 7:48 AM TYPESETTING MACHINE OPERATOR/TENDER Impressions 11/12/2021 7:49 AM TYPESETTING MACHINE OPERATOR/TENDER IMPRESSION: No acute findings. Ordered By: OFELIA YANEZ Interpreted By: Slick Hand MD, 11/12/2021 7:48 AM Narrative 11/12/2021 7:49 AM TYPESETTING MACHINE OPERATOR/TENDER Examination: Chest radiograph Exam time: 11/12/2021 7:47 AM Clinical history: Chest pain. Comparison: 07/10/2020 Technique: ??One view of the chest obtained. Findings: ??Normal heart size and pulmonary vascularity. No consolidations, pleural effusions, or definite pneumothorax. Degenerative changes. Procedure Note Slick Hand MD - 11/12/2021 Examination: Chest radiograph Exam time: 11/12/2021 7:47 AM Clinical history: Chest pain. Comparison: 07/10/2020 Technique: One view of the chest obtained. Findings: Normal heart size and pulmonary vascularity. No consolidations,pleural effusions, or definite pneumothorax. Degenerative changes. IMPRESSION: No acute findings. Ordered By: OFELIA YANEZ Interpreted By: Slick Hand MD, 11/12/2021 7:48 AM Ofelia Yanez MD GENERAL IMAGING Final Result * PARTIAL THROMBOPLASTIN TIME,PTT (11/12/2021 7:41 AM TYPESETTING MACHINE OPERATOR/TENDER) PTT 33.7 25.1 - 36.5 SEC 11/12/2021 8:01 AM TYPESETTING MACHINE OPERATOR/TENDER [facility] Comment:THERAPEUTIC RANGE: 4 6.2-77.0 SEC 11/12/2021 7:41 AM TYPESETTING MACHINE OPERATOR/TENDER Ofelia Yanez MD LABORATORY Final Result [facility] [address] [place] [address], * PROTIME/INR, VENOUS (11/12/2021 7:41 AM TYPESETTING MACHINE OPERATOR/TENDER) PROTIME 11.7 10.2 - 12.9 SEC 11/12/2021 8:01 AM TYPESETTING MACHINE OPERATOR/TENDER [facility] INR 1.0 0.9 - 1.1 11/12/2021 8:01 AM [facility] 11/12/2021 7:41 AM TYPESETTING MACHINE OPERATOR/TENDER us Ofelia Yanez MD LABORATORY Final Result Performing Organization Address City/[facility]/ZIP Co de Phone Number [facility] [address] [place] [address], * TROPONIN, QUANT (11/12/2021 7:41 AM TYPESETTING MACHINE OPERATOR/TENDER) Pathologist [facility] TROPONIN I 4 0 - 76 ng/L 11/12/2021 8:07 AM [facility] 11/12/2021 7:41 AM TYPESETTING MACHINE OPERATOR/TENDER us Ofelia Yanez MD LABORATORY Final Result Performing Organization Address City/[facility] Co de Phone Number [facility] [address] [place] [address], * (ABNORMAL) COMPREHENSIVE METABOLIC PANEL (11/12/2021 7:41 AM TYPESETTING MACHINE OPERATOR/TENDER) Pathologist [facility] SODIUM S/P/B 140 136 - 145 MMOL/L 11/12/2021 8:07 AM [facility] POTASSIUM S/P/B 4.1 3.5 - 5.1 MMOL/L 11/12/2021 8:07 AM [facility] CHLORIDE S/P/B 104 98 - 107 MMOL/L 11/12/2021 8:07 AM [facility] CO2 29.5 21.0 - 32.0 MMOL/L 11/12/2021 8:07 AM [facility] GLUCOSE 97 70 - 99 MG/DL 11/12/2021 8:07 AM [facility] Comment: FASTING GLUCOSE 100 TO 125 MG/DL IS CONSISTENT WITH IMPAIRED FASTING GLUCOSE. FASTING GLUCOSE >125 MG/DL IS CONSISTENT WITH DIABETES. RANDOM GLUCOSE >200 MG/DL WITH HYPERGLYCEMIC SYMPTOMS IS CONSISTENT WITH DIABETES. PER ADA GUIDELINES BUN 11 6 - 24 MG/DL 11/12/2021 8:07 AM [facility] CREATININE S/P/B 1.02 0.70 - 1.30 MG/DL 11/12/2021 8:07 AM [facility] CALCIUM S/P/B 8.7 8.4 - 10.5 MG/DL 11/12/2021 8:07 AM [facility] BILIRUBIN TOTAL S/P/B 0.2 0.2 - 1.0 MG/DL 11/12/2021 8:07 AM [facility] Comment: THIS ASSAY IS NOT RECOMMENDED FOR PATIENTS UNDERGOING TREATMENT WITH ELTROMBOPAG DUE TO THE POTENTIAL FOR FALSELY ELEVATED RESULTS. ALKALINE PHOSPHATASE S/P/B 45 45 - 115 U/L 11/12/2021 8:07 AM [facility] AST 22 15 - 37 U/L 11/12/2021 8:07 AM [facility] ALT 40 16 - 63 U/L 11/12/2021 8:07 AM [facility] TOTAL PROTEIN S/P/B 6.8 6.4 - 8.2 G/DL 11/12/2021 8:07 AM [facility] ALBUMIN S/P/B 3.7 3.4 - 5.0 G/DL 11/12/2021 8:07 AM [facility] ANION GAP 6.5 5.0 - 15.0 MMOL/L 11/12/2021 8:07 AM [facility] OSMOLALITY (CALC) 289 MOSM/KG 022 8:07 AM [facility] Comment:REFERENCE RANGE NOT ESTABLISHED EGFR NON-AFR. AMER. 85(L) >89 ML/MIN/1. 73 M2 11/12/2021 8:07 AM [facility] EGFR AFR. AMER. >90 >89 ML/MIN/1. 73 M2 11/12/2021 8:07 AM [facility] GFR NOTES GFR REFERENCE S: 11/12/2021 8:07 AM TYPESETTING MACHINE OPERATOR/TENDER [facility] Comment: THE ESTIMATED GFR IS CALCULATED USING THE 2009 CKD-EPI EQUATION. THE FOLLOWING CATEGORIES FOR GRADING RENAL FUNCTION ARE RECOMMENDED BY THE INTERNATIONAL SOCIETY OF NEPHROLOGY (KDIGO 2012 CLINICAL PRACTICE GUIDELINE). G1,NORMAL OR HIGH: >89 ml/min/1.73 m2 G2,MILDLY DECREASED: 60-89 ml/min/1.73 m2 G3A,MILDLY TO MODERATELY DECREASED: 45-59 ml/min/1.73 m2 G3B,MODERATELY TO SEVERELY DECREASED: 30-44 ml/min/1.73 m2 G4,SEVERELY DECREASED: 15-29 ml/min/1.73 m2 G5,KIDNEY FAILURE: <15 ml/min/1.73 m2 11/12/2021 7:41 AM TYPESETTING MACHINE OPERATOR/TENDER us Ofelia Yanez MD LABORATORY Final Result [facility] [address] [place] [address], * (ABNORMAL) CBC W/DIFF AUTOMATED (11/12/2021 7:41 AM TYPESETTING MACHINE OPERATOR/TENDER) WBC 7.9 4.0 - 10.8 x10'3/uL 11/12/2021 7:56 AM TYPESETTING MACHINE OPERATOR/TENDER [facility] RBC 4.59 4.50 - 6.10 x10'6/uL 11/12/2021 7:56 AM [facility] HGB 14.4 13.0 - 18.0 G/DL 11/12/2021 7:56 AM TYPESETTING MACHINE OPERATOR/TENDER [facility] HCT 41.8 37.0 - 52.0 % 11/12/2021 7:56 AM TYPESETTING MACHINE OPERATOR/TENDER [facility] MCV 91.1 78.0 - 100.0 FL 11/12/2021 7:56 AM TYPESETTING MACHINE OPERATOR/TENDER [facility] MCH 31.4(H) 27.0 - 31.0 PG 11/12/2021 7:56 AM [facility] MCHC 34.4 33.0 - 36.0 G/DL 11/12/2021 7:56 AM [facility] RDW 14.0 11.5 - 14.5 % 11/12/2021 7:56 AM [facility] PLT 248 150 - 350 x10'3/uL 11/12/2021 7:56 AM [facility] MPV 9.7 7.4 - 10.4 FL 11/12/2021 7:56 AM [facility] DIFFERENTIAL COMMENT NORMAL REFERENCE RANGE NOT ESTABLISHED FOR THE PROPORTIONAL LEUKOCYTE DIFFERENTIAL. 11/12/2021 7:56 AM [facility] SEG NEUTROPHILS 59.5 % 7:56 AM [facility] LYMPHOCYTES 30.5 % 11/12/2021 7:56 AM [facility] MONOCYTES 8.4 % 11/12/2021 7:56 AM [facility] EOSINOPHILS 0.9 % 11/12/2021 7:56 AM [facility] BASOPHILS 0.4 % 11/12/2021 7:56 AM [facility] IMMATURE GRANS % 0.3 % 11/12/19 7:56 AM [facility] NRBC 0.0 % 11/12/2021 7:56 AM [facility] ABS. NEUTROPHILS 4.70 1.60 - 8.30 x10'3/uL 11/12/2021 7:56 AM [facility] ABS. LYMPHOCYTES 2.41 0.80 - 4.70 x10'3/uL 11/12/2021 7:56 AM [facility] ABS. MONOCYTES 0.66 0.00 - 1.50 x10'3/uL 11/12/2021 7:56 AM [facility] ABS. EOSINOPHILS 0.07 0.00 - 0.40 x10'3/uL 11/12/2021 7:56 AM [facility] ABS. BASOPHILS 0.03 0.00 - 0.20 x10'3/uL 11/12/2021 7:56 AM [facility] ABS. IMMATURE GRANULOCYTES 0.02 0.00 - 0.03 x10'3/uL 11/12/2021 7:56 AM TYPESETTING MACHINE OPERATOR/TENDER [facility] ABS. NUCLEATED RBC'S 0.00 0.00 x10'3/uL 11/12/2021 7:56 AM TYPESETTING MACHINE OPERATOR/TENDER [facility] 11/12/2021 7:41 AM TYPESETTING MACHINE OPERATOR/TENDER Ofelia Yanez MD LABORATORY Final Result [facility] [address] [place] [address], * ECG 12 lead (11/12/2021 7:30 AM TYPESETTING MACHINE OPERATOR/TENDER) 11/12/2021 7:30 AM TYPESETTING MACHINE OPERATOR/TENDER Narrative [facility] - 11/12/2021 9:33 AM TYPESETTING MACHINE OPERATOR/TENDER ? [facility] ?[address] [place], [place] ??[address] ? Test Date: ?2021-11-12 Pat Name: ? SCOTT SANCHEZ ? Department: ? Room: ? Gender: ? Male ? [employer]ian [employer]: ?? : ?1970 ? Requested By: OFELIA YANEZ Order Number: [id number] ? Reading : ?? Paige Randall ? Measurements Intervals ?[place] ? Rate: ? 68 ? P: ?51 RI: ? 173 ?QRS: ?20 QRSD: ? 107 ?T: ?2 QT: ? 382 ? QTc: ?409 ? Interpretive Statements SINUS RHYTHM LOW QRS VOLTAGE IN PRECORDIAL LEADS SETTING MACHINE OPERATOR/TENDER Procedure Note Paige Randall MD - 11/12/[address] 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: : 1970 Requested By: OFELIA YANEZ Order Number: [id number] Reading MD: Paige Randall Measurements Intervals [place] Rate: 68 P: 51 RI: 173 QRS: 20 QRSD: 107 T: 2 QT: 382 QTc: 409 Interpretive Statements SINUS RHYTHM LOW QRS VOLTAGE IN PRECORDIAL LEADS SETTING MACHINE OPERATOR/TENDER us Ofelia Yanez MD ECG ORDERABLES Final Result [facility] documented in this encounter Visit Diagnoses Diagnosis Chest pain- Primary Chest pain, unspecified documented in this encounter Care Teams Brancher Relationship Specialty Start Date End Date Doc Jiang MD [address] [place] [address] PCP - General FAMILY PRACTICE 03/21/20 Jacky Martinez MD [address] [place] [phone] Consulting Physician INTERVENTIONAL CARDIOLOGY 04/23/20 Huey Camarillo MD [address] [place] [address] V[facility] INTERNAL MEDICINE 08/13/20 documented as of this encounter
--- OUTSIDE RECORDS SUMMARY | 2024-09-27 10:36 | XMS_ITS | Encounter Summary ---
Author Organization [facility] Address [address] [place] [address]. [place] [address] [place] [address] Care Team Providers Care Supervisor [employer] A[employer]iliaries Name Role Phone Doc Armas MD Primary Care Provider Jacky Martinez MD Unavailable [phone] Huey Camarillo MD Unavailable Reason for Visit * Reason Comments Follow Up testing prior Encounter Details Date Type Department Care Team (Late st Contact Info) Description 12/04/2020 2:00 PM SWITCH OPERATORS SUPERVISOR Office Visit [facility] [address] [place] [address] Huey Camarillo MD [address] [place] [address] Follow Up (testing prior ) Social History Tobacco Use Types Packs/Day Years [...] on file Legal Sex Male 10:23 PM SWITCH OPERATORS SUPERVISOR Gender Identity Not on file Sexual Orientation Not on file COVID-19 Exposure Response Date Recorded In the last month, have you been in contact with someone who was confirmed or suspected to have Coronavirus / COVID-19? No / Unsure 12/04/2020 12:50 PM SWITCH OPERATORS SUPERVISOR documented as of this encounter Last Filed Vital Signs Vital Sign Reading Time Taken Comments Blood Pressure 108/64 12/04/2020 2:13 PM SWITCH OPERATORS SUPERVISOR Pulse 90 12/04/2020 2:11 PM SWITCH OPERATORS SUPERVISOR Temperature - - Respiratory Rate 18 12/04/2020 2:11 PM SWITCH OPERATORS SUPERVISOR Oxygen Saturation 95% 12/04/2020 2:11 PM SWITCH OPERATORS SUPERVISOR Inhaled Oxygen Concentration - - Weight 102.1 kg (225 lb) 12/04/2020 2:11 PM SWITCH OPERATORS SUPERVISOR Height 177.8 cm (5' 10 ) 12/04/2020 2:11 PM SWITCH OPERATORS SUPERVISOR Body Mass Index 32.28 12/04/2020 2:11 PM SWITCH OPERATORS SUPERVISOR documented in this encounter Progress Notes * Huey Camarillo MD - 12/04/2020 2:00 PM CST Reason for Visit: Follow Up (testing prior ) History of Present Illness: 49-year-old male whose cardiovascular history consists of: 1. Bilateral lower extremity edema. 2. CAD- PCI. 3. COPD. 4. Hypertension. 5. Hyperlipidemia. Patient edema is resolved with use of compression stockings. UA, TSH were nondiagnostic and venous testing showed no evidence of reflux. ASSESSMENT AND PLAN: 1. Bilateral lower extremity edema. Patient has no edema today. Continue compression stockings and calf pump excises. 2. Hypertension. Blood pressure is well controlled. 3. CAD- PCI. He had been to [facility]. No history of heart failure and his BNP was noted rosario normal before. 4. COPD. He tells me he has a very early COPD. I would also recommend that he should be evaluated for sleep apnea. 5. Hyperlipidemia. Would defer to you. Follow up in 1 year. Medications: Current Outpatient Medications: ??? albuterol (2.5 MG/3ML) 0.083% nebulizer solution, Take 3 mLs (2.5 mg total) by nebulization every 6 (six) hours as needed for Wheezing., Disp: 360 mL, Rfl: 0 ??? albuterol sulfate HFA 108 (90 Base) MCG/ACT inhaler, Inhale 2 puffs into the lungs every 6 (six) hours as needed for Wheezing., Disp: , Rfl: ??? budesonide-formoterol 160-4.5 MCG/ACT inhaler, Inhale 2 puffs into the lungs 2 (two) times daily., Disp: , Rfl: ??? Buprenorphine HCl (BELBUCA) 150 MCG FILM, Place 1 Film inside cheek., Disp: , Rfl: ??? carvedilol 3.125 MG tablet, Take 3.125 mg by mouth 2 (two) times daily., Disp: , Rfl: ??? COMBIVENT RESPIMAT 20-100 MCG/ACT inhaler, INHALE 1 PUFF BY MOUTH 4 TIMES DAILY FOR CHRONIC OBSTRUCTIVE PULMONARY DISEASE, Disp: , Rfl: ??? COMPRESSION STOCKINGS, 20-30 MMHG Compression stockings, knee-high, open or closed toe Dx: I83.893, Disp: 1 Container, Rfl: 5 ??? fenofibrate 145 MG tablet, , Disp: , Rfl: ??? furosemide 20 MG tablet, Take 20 mg by mouth daily. Indications: 1-2 daily prn, Disp: , Rfl: ??? lisinopril 10 MG tablet, , Disp: , Rfl: ??? metOLazone 5 MG tablet, Take 5 mg by mouth daily., Disp: , Rfl: ??? pregabalin 75 MG capsule, Take 75 mg by mouth 2 (two) times daily., Disp: , Rfl: ??? tiZANidine 2 MG tablet, Take 2 mg by mouth every 6 (six) hours as needed., Disp: , Rfl: ??? Umeclidinium [place] (INCRUSE ELLIPTA) 62.5 MCG/INH AEROSOL POWDER, BREATH ACTIVATED, , Disp: ,Rfl: Allergies Allergen Reactions ??? Cortizone-10 [Hydrocortisone] Other (see comment) Dermatologicals ??? Flagyl [Metronidazole] Hives and Itching Past Medical History: Diagnosis Date ??? Bilateral lower extremity edema ??? Congestive heart failure (CMS/HCC) ??? COPD (chronic obstructive pulmonary disease) (CMS/HCC) ??? Coronary artery disease ??? GERD (gastroesophageal reflux disease) ??? Hypertension ??? Mixed hyperlipidemia Past Surgical History: Procedure Laterality Date ??? BACK SURGERY ??? CORONARY ANGIOPLASTY 2014 ??? KNEE SURGERY Social History Tobacco Use ??? Smoking status: Former Smoker ??? Smokeless tobacco: Never Used Substance Use Topics ??? Alcohol use: Yes Frequency: Never Comment: occasional ??? Drug use: Not Currently No family history on file. Family Status Relation Name Status ??? MGM ??? MGF ??? PGM ??? PGF ??? Mother ??? Father Review of Systems Constitutional: Negative for recent unintentional weight gain, recent unintentional weight loss andnew or significant fatigue. HENT: Negative for new or significant hearing loss. Eyes: Negative for blurred vision and double vision. Respiratory: Negative for cough, new or significant shortness of breath and snoring. Cardiovascular: See HPI. Positive for leg swelling.Negative for claudication. Gastrointestinal: Negative for blood in stool and melena. Genitourinary: Negative for dysuria. Musculoskeletal: Negative for myalgias and new or worsening joint stiffness/pain. Skin: Negative for rash. Neurological: Negative for tingling/numbness and focal weakness. Endo/Heme/Allergies: Negative for new or significant bruising/bleeding and polydipsia. Psychiatric/Behavioral: Negative for depression and new or significant memory loss. Vitals: 12/04/20 1411 12/04/20 1413 BP: 102/60 108/64 Patient Position: Sitting Sitting BP Location: Left arm Right arm Pulse: 90 Weight: 102.1 kg (225 lb) Height: 5' 10 (1.778 m) Body mass index is 32.28 kg/m??. Cardiac Exam Rate/Rhythm: Normal rate and regular rhythm. PMI: PMI is not displaced. Pulses: Normal pulses. Femoral pulses are 2+ on the right side and 2+ on the left side. Heart Sounds: Normal heart sounds. Normal S1 sounds. Normal S2 sounds. No gallop present. No S3. NoS4. Murmurs: Edema left: 0. Edema Right: 0. Physical Exam Constitutional: No distress. Healthy Appearance. HENT: Oropharynx clear. Eyes: Pupils equal, round, and reactive to light. Conjunctivae normal. Neck: Neck supple. No JVD. Abdomen: Abdomen soft. Bowel sounds normal. No tenderness. No mass. No hepatomegaly. No splenomegaly. Abdominal aorta not palpably enlarged. No abdominal bruit present. Pulmonary: Effort normal. Breath sounds normal. Skin: No rash. No cyanosis. No clubbing. No xanthoma. Musculoskeletal: No kyphosis. Normal ROM. Neurological: Alert. Oriented x 3. Appropriate mood and affect. Normal motor skills. Normal gait. Comments: Small varicose veins with reticular//spider veins noted. No edema noted in feet. Diagnoses/Impression: 1. Leg edema 2. Essential hypertension Referring Provider: No ref. provider found PCP: DOC ARMAS MD CH OPERATORS SUPERVISOR documented in this encounter Plan of Treatment Not on file documented as of this encounter Visit Diagnoses Diagnosis Leg edema- Primary Edema Essential hypertension Unspecified essential hypertension documented in this encounter Care Teams Supervisor [employer] A[employer]iliaries Relationship Specialty Start Date End Date Doc Armas MD [address] [place] [phone] PCP - General FAMILY PRACTICE 03/21/20 Jacky Martinez MD [address] [place] [phone] Consulting Physician INTERVENTIONAL CARDIOLOGY 04/23/20 Huey Camarillo MD [address] [place] [address] Vascular/Chemical Blender INTERNAL MEDICINE 08/13/20 documented as of this encounter
--- OUTSIDE RECORDS SUMMARY | 2024-09-27 10:36 | XMS_ITS | Encounter Summary ---
Author Organization [facility] Address [address] [place] [address]. [place] [address] [place] [address] Care Team Providers Care Footwear Sales Associate Name Role Phone Doc Jiang MD Primary Care Provider Jacky Martinez MD Unavailable [phone] Huey Camarillo MD Unavailable Reason for Visit * Reason Onset Date Comments Appointment Request 08/18/2020 Encounter Details Date Type Department Care Team (Late st Contact Info) Description 08/18/2020 Telephone [facility] [place] [address] Huey Camarillo MD [address] 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 Gender Identity Not on file Sexual Orientation Not on file documented as of this encounter Progress Notes * Kristina Garza RN - 08/18/2020 9:17 AM CST Pt called to cancel his apt on Aug 25 due to he cannot get the day off, pt request late apt of the day Pt rescheduled for Sep 08 at 3 pm in [place] letter sent [employer]ACKLER documented in this encounter Plan of Treatment Not on file documented as of this encounter Visit Diagnoses Not on filedocumented in this encounter Care Teams Footwear Sales Associate Relationship Specialty Start Date End Date Doc Jiang MD [address] [place] [phone] PCP - General FAMILY PRACTICE 03/21/20 Jacky Martinez MD [address] [place] [address] Consulting Physician INTERVENTIONAL CARDIOLOGY 04/23/20 Huey Camarillo MD [address] [employer] [address] [place] [address] Vascular/Community Pharmacist INTERNAL MEDICINE 08/13/20 documented as of this encounter
--- OUTSIDE RECORDS SUMMARY | 2024-09-27 10:36 | XMS_ITS | Encounter Summary ---
Author Organization [facility] Address [address] [place] [address]. [place] [address] [place] [address] Care Team Providers Care Learning And Development Coordinator Name Role Phone Doc Jiang MD Primary Care Provider [phone] Jacky Martinez MD Unavailable Reason for Visit * Reason Comments Shortness Of Breath Encounter Details Date Type Department Care Team (Late st Contact Info) Description 07/10/2020 2:40 AM CDT - 07/10/2020 3:57 AM CDT Emergency [facility] [address] [place] [address] [place] [address] Amparo Wheeler [place] [facility] [address] Shortness Of Breath Discharge Disposition: Home or Self Care (Routine [...] on file 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 No / Unsure 07/10/2020 2:27 AM CDT documented as of this encounter Last Filed Vital Signs Vital Sign Reading Time Taken Comments Blood Pressure 113/71 07/10/2020 3:30 AM CDT Pulse 75 07/10/2020 3:30 AM CDT Temperature 36.3 ??C (97.3 ??F) 07/10/2020 2:35 AM CD T Respiratory Rate 11 07/10/2020 3:30 AM CDT Oxygen Saturation 98% 07/10/2020 3:30 AM CDT Inhaled Oxygen Concentration - - Weight 108.9 kg (240 lb) 07/10/2020 2:35 AM CDT Height 175.3 cm (5' 9 ) 07/10/2020 2:35 AM CDT Body Mass Index 35.44 07/10/2020 2:35 AM CDT documented in this encounter Discharge Instructions * Discharge Instructions* Amparo Wheeler MD - 07/10/2020 3:44 AM CDT Use medications as prescribed. Close follow-up with primary care-call for appointment. Return to the ER for any worsening symptoms or concerns. * Attachments The following attachments cannot be sent through Care Everywhere. * Chronic Obstructive Pulmonary Disease (COPD) Discharge Instructions (Singaporean) documented in this encounter Medications at Time [...] 1 Film inside cheek. Indications: 75 mcg furosemide 20 MG tabletIndication s:1-2 daily prn Take 20 mg by mouth daily. Indications: 1-2 daily prn tiZANidine 2 MG tablet Take 2 mg by mouth every 6 (six) hours as needed. atorvastatin 40 MG tablet 07/06/2020 12/15/202 0 atorvastatin 80 MG tablet Take 80 mg by mouth nightly at bedtime. 0 BELBUCA 75 MCG FILM DISSOLVE 1 STRIP TO THE GUM Q 12 HOURS 08/19/2019 0 carvedilol 12.5 MG tablet Take 12.5 mg by mouth 2 (two) times daily. 0 carvedilol 3.125 MG tablet Take 3.125 mg by mouth 2 (two) times daily. 07/04/2020 3 lisinopril 10 MG tablet Take 10 mg by mouth daily. 0 meloxicam 15 MG tablet Take 15 mg by mouth daily. 0 meloxicam 7.5 MG tablet Take 7.5 mg by mouth daily. 07/04/2020 0 methylPREDNISolo ne, KEREN, 4 MG tablet Take 1 tablet (4 mg total) by mouth daily. 6 TABLETS ON DAY ONE, 5 TABLETS DAY TWO, 4 TABLETS DAY THREE, 3 TABLETS DAY FOUR, 2 TABLETS DAY FIVE, AND 1 TABLET DAY SIX 1 each 07/10/2020 0 Umeclidinium [place] (INCRUSE ELLIPTA) 62.5 MCG/INH AEROSOL POWDER, BREATH ACTIVATED 2 documented as of this encounter ED Notes * Amparo Wheeler MD - 07/10/2020 3:38 AM CDT Chief Complaint Chief Complaint Patient presents with ??? Shortness Of Breath History of Present Illness 49-year-old male presents the ED with a chief complaint of shortness of breath. He states that he awoke with a sensation he cannot take a deep breath. This happened to him once prior during this week. No fevers or chills. No cough or sputum. No chest pain. No back or flank pain. No pleuritic symptoms. No significant orthopnea. No increased lower extremity edema from baseline. No focal neurologic complaints. No other alleviating or contributing factors. No other complaints at this time. Medical History ALLERGIES: Allergies Allergen Reactions ??? Cortizone-10 [Hydrocortisone] Unknown ??? Flagyl [Metronidazole] Unknown MEDICATIONS: Prior to Admission medications Medication Sig Start Date End Date Taking? Authorizing Provider albuterol (2.5 MG/3ML) 0.083% nebulizer solution Take 3 mLs (2.5 mg total) by nebulization every 6 (six) hours as needed for Wheezing. 07/10/20 Yes Amparo Wheeler MD methylPREDNISolone, KEREN, 4 MG tablet Take 1 tablet (4 mg total) by mouth daily. 6 TABLETS ON DAY ONE, 5 TABLETS DAY TWO, 4 TABLETS DAY THREE, 3 TABLETS DAY FOUR, 2 TABLETS DAY FIVE, AND 1 TABLET DAY SIX 07/10/20 Yes Amparo Wheeler MD albuterol sulfate HFA 108 (90 Base) MCG/ACT inhaler Inhale 2 puffs into the lungs every 6 (six) hours as needed for Wheezing. Doc Abstract atorvastatin 80 MG tablet Take 80 mg by mouth nightly at bedtime. Doc Abstract budesonide-formoterol 160-4.5 MCG/ACT inhaler Inhale 2 puffs into the lungs 2 (two) times daily. Doc Abstract Buprenorphine HCl (BELBUCA) [address] 1 Film inside cheek. Doc Abstract carvedilol 12.5 MG tablet Take 12.5 mg by mouth 2 (two) times daily. Doc Abstract furosemide 20 MG tablet Take 20 mg by mouth daily. Indications: 1-2 daily prn Doc Abstract lisinopril 10 MG tablet Take 10 mg by mouth daily. Doc Abstract meloxicam 15 MG tablet Take 15 mg by mouth daily. Doc Abstract tiZANidine 2 MG tablet Take 2 mg by mouth every 6 (six) hours as needed. Doc Abstract Umeclidinium [place] (INCRUSE ELLIPTA) 62.5 MCG/INH AEROSOL POWDER, BREATH ACTIVATED Doc Abstract PAST MEDICAL HISTORY: Past Medical History: Diagnosis Date ??? Congestive heart failure (CMS/HCC) ??? COPD (chronic obstructive pulmonary disease) (CMS/HCC) ??? Coronary artery disease ??? Hypertension PAST SURGICAL HISTORY: Past Surgical History: Procedure Laterality Date ??? BACK SURGERY ??? KNEE SURGERY FAMILY HISTORY: No family history on file. SOCIAL HISTORY: Social History Tobacco Use ??? Smoking status: Former Smoker ??? Smokeless tobacco: Never Used Substance Use Topics ??? Alcohol use: Not Currently Frequency: Never ??? Drug use: Not Currently Review of Systems Review of Systems All other systems reviewed and are negative. Physical Exam Filed Vitals: 07/10/20 0235 BP: (!) 149/95 Pulse: 89 Resp: 22 Temp: 97.3 ??F (36.3 ??C) TempSrc: Temporal SpO2: 91% Weight: 108.9 kg (240 lb) Height: 5' 9 (1.753 m) Physical Exam Gen: alert and oriented x 3. GCS 15. Well nourished, well hydrated in no distress. Heent: perrl, eomi, op clear, neck supple no meningismus/meningitic signs, no lad Cardiac: Nl S1/S2, RRR, no murmurs rubs gallops. Pulmonary: Mild scattered bilateral expiratory wheeze, No rhonchi, crackles Abdomen: s/nt/nd NABS. No rebound, guarding or rigidity Extremity: Pt. able to move all four extremities. No rash, Cyanosis, mild to moderate bilateral lower extremity pitting edema Neuro: Moves all four extremities equally Diagnostic Studies / Procedures ELECTROCARDIOGRAMS: Results for orders placed or performed during the hospital encounter of 07/10/20 ECG [address] 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1970 Requested By: AMPARO WHEELER Order Number: [id number] Reading MD: Measurements Intervals [place] Rate: 90 P: 61 FL: 175 QRS: 13 QRSD: 106 T: 35 QT: 341 QTc: 418 Interpretive Statements SINUS RHYTHM NONSPECIFIC T-WAVE ABNORMALITY LABORATORY STUDIES: Results for orders placed or performed during the hospital encounter of 07/10/20 CBC W/DIFF AUTOMATED Result Value Ref Range WBC 6.4 4.5 - 10.8 x10'3/uL RBC 4.95 4.50 - 6.10 x10'6/uL HGB 15.2 13.0 - 18.0 G/DL HCT 46.5 37.0 - 52.0 % MCV 93.9 78.0 - 100.0 FL MCH 30.7 27.0 - 31.0 PG MCHC 32.7 (L) 33.0 - 36.0 G/DL RDW 13.5 11.5 - 14.5 % PLT 219 150 - 350 x10'3/uL MPV 10.0 7.4 - 10.4 FL Differential Comment NORMAL REFERENCE RANGE NOT ESTABLISHED FOR THE PROPORTIONAL LEUKOCYTE DIFFERENTIAL. SEG NEUTROPHILS 45.2 % LYMPHOCYTES 40.6 % MONOCYTES 11.4 % EOSINOPHILS 2.0 % BASOPHILS 0.5 % IMMATURE GRANS 0.3 % NRBC 0.0 % ABS. NEUTROPHILS 2.89 1.60 - 8.30 x10'3/uL ABS. LYMPHOCYTES 2.60 0.80 - 4.70 x10'3/uL ABS. MONOCYTES 0.73 0.00 - 1.50 x10'3/uL ABS. EOSINOPHILS 0.13 0.00 - 0.40 x10'3/uL ABS. BASOPHILS 0.03 0.00 - 0.20 x10'3/uL ABS. IMMATURE GRANULOCYTES 0.02 0.00 - 0.03 x10'3/uL ABS. NUCLEATED RBC'S 0.00 0.00 x10'3/uL COMPREHENSIVE METABOLIC PANEL Result Value Ref Range SODIUM 140 136 - 145 MMOL/L POTASSIUM 4.0 3.5 - 5.1 MMOL/L CHLORIDE S/P/B 103 98 - 107 MMOL/L CO2 30.3 21.0 - 32.0 MMOL/L GLUCOSE 118 (H) 70 - 99 MG/DL BUN 13 6 - 24 MG/DL CREATININE S/P/B 0.98 0.70 - 1.30 MG/DL CALCIUM 8.9 8.4 - 10.5 MG/DL BILIRUBIN TOTAL S/P/B 0.3 0.2 - 1.0 MG/DL ALKALINE PHOSPHATASE S/P/B 89 45 - 115 U/L AST 30 15 - 37 U/L ALT 66 (H) 16 - 63 U/L TOTAL PROTEIN S/P/B 7.3 6.4 - 8.2 G/DL ALBUMIN S/P/B 3.8 3.4 - 5.0 G/DL ANION GAP 6.7 5.0 - 15.0 MMOL/L OSMOLALITY (CALC) 291 MOSM/KG eGFR Non-Afr. Amer. 90 >89 ML/MIN/1.73 M2 eGFR Afr. Amer. >90 >89 ML/MIN/1.73 M2 GFR NOTES GFR REFERENCES: TROPONIN, QUANT Result Value Ref Range TROPONIN I <0.017 0.000 - 0.056 ng/mL. PRO-BRAIN NATRIURETIC PEPTIDE Result Value Ref Range Pro-B TYPE NATRIURETIC PEPTIDE 40 <125 PG/ML Blood gas, venous Result Value Ref Range O2 SAT VENOUS 81 (H) 40 - 70 % PH VENOUS 7.36 7.35 - 7.45 PC02 VENOUS 50.4 41.0 - 51.0 MMHG PO2 VENOUS 50.0 (H) 20.0 - 40.0 MM HG VENOUS BASE EXCESS 2.2 MMOL/L BICARB-VENOUS 28.0 22.0 - 29.0 MMOL/L TCO2 29.5 (H) 25.0 - 29.0 MMOL/L LITER FLOW ROOM AIR IMAGING STUDIES XR CHEST PORTABLE Final Result by User, [id number] (07/10 4747) Examination: Chest radiograph Exam time: 07/10/2020 2:49 AM Clinical history: Dyspnea Comparison: 04/05/2020 Technique: One view of the chest obtained. Findings: Lungs are adequately inflated and clear. No pneumothorax or pleural effusions evident. The cardiac silhouette, mediastinal contours, and pulmonary vessels appear within normal limits. No acute osseous abnormality. IMPRESSION: No radiographic evidence of active disease of the chest. Interpreted By: Joe Menchaca MD, 07/10/2020 2:59 AM ED Course / Medical Decision Making Basic labs were reviewed and found to be unremarkable. Chest x-ray is normal. Patient is given a DuoNeb treatment will be started on a course of Medrol and will be treated for a possible COPD exacerbation. However, it is possible that he is experiencing obstructive sleep apnea and this is discussedwith the patient. He was recommended to follow-up with his primary physician for recheck. Return tot ED for any worsening symptoms or concerns. Patient expressed understanding. Clinical Impression COPD exacerbation (CMS/[facility]) (Primary) Disposition: Discharge Amparo Wheeler MD 07/10/20 0344 * Elida Mckeon RN - 07/10/2020 2:30 AM CDTSummary: sob Pt arrives via pov, pt woke up 2 hours ago c/o sob. Upon ED arrival pt was able to walk from the waiting room to the exam room. Pt sating 92% on RA. Pt is a/o x4 . Hx of copd and CHF documented in this encounter Plan of Treatment Not on file documented as of this encounter Procedures Procedure Name Priority Date/Time Associated Diagnosis Comments BLOOD GAS, VENOUS STAT 07/10/2020 2:5 9 AM CDT XR CHEST PORTABLE STAT 07/10/2020 2:5 7 AM CDT PRO-BRAIN NATRIURETIC PEPTIDE STAT 07/10/2020 2:39 AM CDT COMPREHENSIVE METABOLIC PANEL STAT 07/10/2020 2:39 AM CDT CBC W/DIFF AUTOMATED STAT 07/10/2020 2:39 AM CDT TROPONIN, QUANT STAT 07/10/2020 2:39 AM CDT ECG 12-LEAD Routine 07/10/2020 2:30 AM CDT documented in this encounter Results * (ABNORMAL) Blood gas, venous (07/10/2020 2:59 AM CDT) O2 SAT VENOUS 81(H) 40 - 70 % 07/10/2020 3:08 AM CDT [facility] PH VENOUS 7.36 7.35 - 7.45 07/10/2020 3:08 AM CDT [facility] PCO2 VENOUS 50.4 41.0 - 51.0 MMHG 07/10/2020 3:08 AM CDT [facility] PO2 VENOUS 50.0(H) 20.0 - 40.0 MM HG 07/10/2020 3:08 AM CDT [facility] VENOUS BASE EXCESS 2.2 MMOL/L 07/10/2020 3:08 AM CDT [facility] BICARB VENOUS 28.0 22.0 - 29.0 MMOL/L 07/10/2020 3:08 AM CDT [facility] TCO2 29.5(H) 25.0 - 29.0 MMOL/L 07/10/2020 3:08 AM CDT [facility] LITER FLOW ROOM AIR 07/10/2020 3:02 AM CDT [facility] Blood specimen (specimen) 07/10/2020 2:59 AM CDT us Amparo Wheeler MD LABORATORY Final Resul t [facility] [address] [place] [address], * XR CHEST PORTABLE (07/10/2020 2:57 AM CDT) Anatomical Region Laterality Modality Chest Radiographic Carmella ging 07/10/2020 2:59 AM CDT Impressions 07/10/2020 3:00 AM CDT IMPRESSION: No radiographic evidence of active disease of the chest. Interpreted By: Joe Menchaca MD, 07/10/2020 2:59 AM Narrative 07/10/2020 3:00 AM CDT Examination: Chest radiograph Exam time: 07/10/2020 2:49 AM Clinical history: Dyspnea Comparison: 04/05/2020 Technique: ??One view of the chest obtained. Findings: Lungs are adequately inflated and clear. No pneumothorax or pleural effusions evident. The cardiac silhouette, mediastinal contours, and pulmonary vessels appear within normal limits. No acute osseous abnormality. ?? Procedure Note Joe Menchaca MD - 07/10/2020 Examination: Chest radiograph Exam time: 07/10/2020 2:49 AM Clinical history: Dyspnea Comparison: 04/05/2020 Technique: One view of the chest obtained. Findings: Lungs are adequately inflated and clear. No pneumothorax or pleural effusions evident. The cardiac silhouette, mediastinal contours, and pulmonary vessels appear within normal limits. No acute osseous abnormality. IMPRESSION: No radiographic evidence of active disease of the chest. Interpreted By: Joe Menchaca MD, 07/10/2020 2:59 AM us Amparo Wheeler MD GENERAL IMAGING Final Resul t * PRO-BRAIN NATRIURETIC PEPTIDE (07/10/2020 2:39 AM CDT) PRO-B TYPE NATRIURETIC PEPTIDE 40 <125 PG/ML 07/10/2020 3:15 AM CDT [facility] Comment: CUT POINTS ESTABLISHED BY [employer]NATIONAL [employer] ON NT PROBNP (ICON) STUDY (2006). AGE INDEPENDENT: <300 PG/ML HAS A 99% NEGATIVE PREDICTIVE VALUE FOR EXCLUDING ACUTE CHF <50 YEARS: >450 PG/ML IS CONSISTENT WITH ACUTE CHF 50-75 YEARS: >900 PG/ML IS CONSISTENT WITH ACUTE CHF >75 YEARS: >1800 PG/ML IS CONSISTENT WITH ACUTE CHF IN PATIENTS WITH RENAL INSUFFICIENCY (GFR <60), >1200 PG/ML YIELDS A DIAGNOSTIC SENSITIVITY AND SPECIFICITY OF 89% AND 72% FOR ACUTE CHF. 07/10/2020 2:39 AM CDT us Amparo Wheeler MD LABORATORY Final Resul t Performing Organization Address [facility] Co de Phone Number [facility] [address] [address], * TROPONIN, QUANT (07/10/2020 2:39 AM CDT) TROPONIN I <0.017 0.000 - 0.056 ng/mL. 07/10/2020 3:15 AM CDT [facility] Comment: ALTHOUGH VALUES OVER 0.056 ARE CONSIDERED ABNORMAL AND REPRESENT MYOCARDIAL DAMAGE,A CUTOFF OF 0.600 HAS BEEN RECOMMENDED REPRESENTING ACUTE MYOCARDIAL INFARCTION. 07/10/2020 2:39 AM CDT us Amparo Wheeler MD LABORATORY Final Resul t Performing Organization Address City/[facility]/ZIP Co de Phone Number [facility] [address] [place] [address], * (ABNORMAL) COMPREHENSIVE METABOLIC PANEL (07/10/2020 2:39 AM CDT) SODIUM S/P/B 140 136 - 145 MMOL/L 07/10/2020 3:15 AM CDT [facility] POTASSIUM S/P/B 4.0 3.5 - 5.1 MMOL/L 07/10/2020 3:15 AM CDT [facility] CHLORIDE S/P/B 103 98 - 107 MMOL/L 07/10/2020 3:15 AM CDT [facility] CO2 30.3 21.0 - 32.0 MMOL/L 07/10/2020 3:15 AM CDT [facility] GLUCOSE 118(H) 70 - 99 MG/DL 07/10/2020 3:15 AM T [facility] Comment: FASTING GLUCOSE 100 TO 125 MG/DL IS CONSISTENT WITH IMPAIRED FASTING GLUCOSE. FASTING GLUCOSE >125 MG/DL IS CONSISTENT WITH DIABETES. RANDOM GLUCOSE >200 MG/DL WITH HYPERGLYCEMIC SYMPTOMS IS CONSISTENT WITH DIABETES. PER ADA GUIDELINES BUN 13 6 - 24 MG/DL 07/10/2020 3:15 AM CDT [facility] CREATININE S/P/B 0.98 0.70 - 1.30 MG/DL 07/10/2020 3:15 AM CDT [facility] CALCIUM S/P/B 8.9 8.4 - 10.5 MG/DL 07/10/2020 3:15 AM T [facility] BILIRUBIN TOTAL S/P/B 0.3 0.2 - 1.0 MG/DL 07/10/2020 3:15 AM T [facility] Comment: THIS ASSAY IS NOT RECOMMENDED FOR PATIENTS UNDERGOING TREATMENT WITH ELTROMBOPAG DUE TO THE POTENTIAL FOR FALSELY ELEVATED RESULTS. ALKALINE PHOSPHATASE S/P/B 89 45 - 115 U/L 07/10/2020 3:15 AM CDT [facility] AST 30 15 - 37 U/L 07/10/2020 3:15 AM CDT [facility] ALT 66(H) 16 - 63 U/L 07/10/2020 3:15 AM CDT [facility] TOTAL PROTEIN S/P/B 7.3 6.4 - 8.2 G/DL 07/10/2020 3:15 AM CDT [facility] ALBUMIN S/P/B 3.8 3.4 - 5.0 G/DL 07/10/2020 3:15 AM CDT [facility] ANION GAP 6.7 5.0 - 15.0 MMOL/L 07/10/2020 3:15 AM CDT [facility] OSMOLALITY (CALC) 291 MOSM/KG 020 3:15 AM CDT [facility] Comment:REFERENCE RANGE NOT ESTABLISHED EGFR NON-AFR. AMER. 90 >89 ML/MIN/1. 73 M2 07/10/2020 3:15 AM CDT [facility] EGFR AFR. AMER. >90 >89 ML/MIN/1. 73 M2 07/10/2020 3:15 AM CDT [facility] GFR NOTES GFR REFERENCE S: 07/10/2020 3:15 AM CDT [facility] Comment: THE ESTIMATED GFR IS CALCULATED [...] ml/min/1.73 m2 G5,KIDNEY FAILURE: <15 ml/min/1.73 m2 07/10/2020 2:39 AM CDT us Amparo Wheeler MD LABORATORY Final Resul t [facility] [address] [place] [address], * (ABNORMAL) CBC W/DIFF AUTOMATED (07/10/2020 2:39 AM CDT) WBC 6.4 4.5 - 10.8 x10'3/uL 07/10/2020 2:53 AM CDT [facility] RBC 4.95 4.50 - 6.10 x10'6/uL 07/10/2020 2:53 AM CDT [facility] HGB 15.2 13.0 - 18.0 G/DL 07/10/2020 2:53 AM CDT [facility] HCT 46.5 37.0 - 52.0 % 07/10/2020 2:53 AM CDT [facility] MCV 93.9 78.0 - 100.0 FL 07/10/2020 2:53 AM CDT [facility] MCH 30.7 27.0 - 31.0 PG 07/10/2020 2:53 AM CDT [facility] MCHC 32.7(L) 33.0 - 36.0 G/DL 07/10/2020 2:53 AM CDT [facility] RDW 13.5 11.5 - 14.5 % 07/10/2020 2:53 AM CDT [facility] PLT 219 150 - 350 x10'3/uL 07/10/2020 2:53 AM CDT [facility] MPV 10.0 7.4 - 10.4 FL 07/10/2020 2:53 AM CDT [facility] DIFFERENTIAL COMMENT NORMAL REFERENCE RANGE NOT ESTABLISHED FOR THE PROPORTIONAL LEUKOCYTE DIFFERENTIAL. 07/10/2020 2:53 AM CDT [facility] SEG NEUTROPHILS 45.2 % 0 2:53 AM CDT [facility] LYMPHOCYTES 40.6 % 07/10/2020 2:53 AM CDT [facility] MONOCYTES 11.4 % 07/10/2020 2:53 AM CDT [facility] EOSINOPHILS 2.0 % 07/10/2020 2:53 AM CDT [facility] BASOPHILS 0.5 % 07/10/2020 2:53 AM CDT [facility] IMMATURE GRANS % 0.3 % 07/10/20 20 2:53 AM CDT [facility] NRBC 0.0 % 07/10/2020 2:53 AM CDT [facility] ABS. NEUTROPHILS 2.89 1.60 - 8.30 x10'3/uL 07/10/2020 2:53 AM CDT [facility] ABS. LYMPHOCYTES 2.60 0.80 - 4.70 x10'3/uL 07/10/2020 2:53 AM CDT [facility] ABS. MONOCYTES 0.73 0.00 - 1.50 x10'3/uL 07/10/2020 2:53 AM CDT [facility] ABS. EOSINOPHILS 0.13 0.00 - 0.40 x10'3/uL 07/10/2020 2:53 AM CDT [facility] ABS. BASOPHILS 0.03 0.00 - 0.20 x10'3/uL 07/10/2020 2:53 AM CDT [facility] ABS. IMMATURE GRANULOCYTES 0.02 0.00 - 0.03 x10'3/uL 07/10/2020 2:53 AM CDT [facility] ABS. NUCLEATED RBC'S 0.00 0.00 x10'3/uL 07/10/2020 2:53 AM CDT [facility] 07/10/2020 2:39 AM CDT us Amparo Wheeler MD LABORATORY Final Resul t [facility] [address] [place] [address], * ECG 12 lead (07/10/2020 2:30 AM CDT) 07/10/2020 2:30 AM CDT Narrative [facility] - 07/10/2020 9:28 PM CDT ? [facility] ?[address] [place], [place] ??[address] ? Test Date: ?2020-07-10 Pat Name: ? SOCTT MANUS ? Department: ? Room: ? Gender: ? Male ? Pamphlet Distributor: ?? : ?1970 ? Requested By: AMPARO DANIE Order Number: [id number] ? Reading MD: ?? Bhanu Laddu ? Measurements Intervals ?[place] ? Rate: ? 90 ? P: ?61 FL: ? 175 ?QRS: ?13 QRSD: ? 106 ?T: ?35 QT: ? 341 ? QTc: ?418 ? Interpretive Statements SINUS RHYTHM NONSPECIFIC T-WAVE ABNORMALITY Procedure Note Bhanu Kauffman MD - 07/10/[address] 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: : 1970 Requested By: AMPARO WHEELER Order Number: [id number] Shae MD: Shaw Measurements Intervals [place] Rate: 90 P: 61 FL: 175 QRS: 13 QRSD: 106 T: 35 QT: 341 QTc: 418 Interpretive Statements SINUS RHYTHM NONSPECIFIC T-WAVE ABNORMALITY us Amparo Wheeler MD ECG ORDERABLES Final Resul t [facility] documented in this encounter Visit Diagnoses Diagnosis COPD exacerbation ([facility])- Primary Obstructive chronic bronchitis with exacerbation documented in this encounter Administered Medications Inactive Administered Medications - up to 3 most recent administrations Medication Order MAR Action Action Date Dose Rate Site ipratropium-albuterol (DUONEB) 0.5-2.5 (3) MG/3ML nebulizer solution 3 mL 3 mL, Nebulization, Once, 1 dose, On Mon07/10/20 at 0315 Given 07/10/2020 3:27 AM CDT 3 mLs predniSONE (DELTASONE) tablet 40 mg 40 mg, Oral, Once, 1 dose, On Mon07/10/20 at 0400 Given 07/10/2020 3:54 AM CDT 40 mg documented in this encounter Active and Recently Administered Medications Times are shown in CDT. Scheduled Medication Order 07/08/2020 07/09/2020 07/10/2020 ipratropium-albuterol (DUONEB) 0.5-2.5 (3) MG/3ML nebulizer solution 3 mL (COMPLETED) 3 mL, Nebulization, Once, 1 dose, On Mon07/10/20 at 0315 0327 (Given - Provid er: Elida Mckeon, GENNY) predniSONE (DELTASONE) tablet 40 mg (COMPLETED) 40 mg, Oral, Once, 1 dose, On Mon07/10/20 at 0400 0354 (Given - Provid er: Elida Mckeon RN) documented in this encounter Care Teams Learning And Development Coordinator Relationship Specialty Start Date End Date Doc Jiang MD [address] [place] [address] PCP - General FAMILY PRACTICE 03/21/20 Jacky Martinez MD [address] [facility] [address] [place] [address] Consulting Physician INTERVENTIONAL CARDIOLOGY 04/23/20 documented as of this encounter
--- OUTSIDE RECORDS SUMMARY | 2024-09-27 10:36 | XMS_ITS | Encounter Summary ---
Author Organization [facility] Address [address] [place] [address]. 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 No / Unsure 04/05/2020 10:13 AM CDT documented as of this encounter Plan of Treatment Not on file documented as of this encounter Visit Diagnoses Not on filedocumented in this encounter Care Teams Planer Stone Relationship Specialty Start Date End Date Doc Jiang MD [address] [place] [phone] PCP - General FAMILY PRACTICE 03/21/20 documented as of this encounter
--- OUTSIDE RECORDS SUMMARY | 2024-09-27 10:36 | XMS_ITS | Encounter Summary ---
Author Organization [facility] Address [facility] [place] [address] [place] [address] Care Team Providers Care Title Searcher Name Role Phone Doc Armas MD Primary Care Provider [phone] Jacky Martinez MD Unavailable [phone] Huey Camarillo MD Unavailable Reason for Referral * Imaging (Routine) - Closed Specialty Diagnoses / Procedures Referred By Sue johnson Referred To Contact RADIOLOGY Diagnoses Varicose veins of lower extremities with complications, bilateral Procedures USV VENOUS REFLUX LOW NENA Huey Camarillo MD [address] [facility] [address] [place] [address] Phone: tel: fax: Referral ID Status Reason Start Date Expiration Date Visits Re quested Visits Authorized [id number] Closed 09/08/2020 10/09/2021 1 1 UGATOR SUPERVISOR Reason for Visit * Reason Comments Consult lower extremity rubi a Encounter Details Date Type Department Care Team (Latest Contact Info) Description 09/08/2020 3:00 PM CORRUGATOR SUPERVISOR Office Visit [facility] [place] [address] Huey Camarillo MD [address] [place] [address] Consult (lower extremity edema) Social History Tobacco Use Types Packs/Day Years [...] on file Legal Sex Male 10:23 PM CORRUGATOR SUPERVISOR Gender Identity Not on file Sexual Orientation Not on file documented as of this encounter Last Filed Vital Signs Vital Sign Reading Time Taken Comments Blood Pressure 155/108 09/08/2020 3:16 PM CORRUGATOR SUPERVISOR Pulse 97 09/08/2020 3:15 PM CORRUGATOR SUPERVISOR Temperature - - Respiratory Rate 18 09/08/2020 3:15 PM CORRUGATOR SUPERVISOR Oxygen Saturation - - Inhaled Oxygen Concentration - - Weight 109.9 kg (242 lb 3.2 oz) 09/08/2020 3:15 PM CORRUGATOR SUPERVISOR Height 175.3 cm (5' 9 ) 09/08/2020 3:15 PM CORRUGATOR SUPERVISOR Body Mass Index 35.77 09/08/2020 3:15 PM CORRUGATOR SUPERVISOR documented in this encounter Progress Notes * Huey Camarillo MD - 09/08/2020 3:00 PM CST Reason for Visit: Consult (lower extremity edema) History of Present Illness: 49-year-old male who has been referred to me by your office. Patient's cardiovascular history consists of: 1. Bilateral lower extremity edema. 2. CAD- PCI. 3. COPD. 4. Hypertension. 5. Hyperlipidemia. Patient tells me there has been swelling in his legs for the last couple of years. He notices that swelling is better in the morning and worse as the day goes by. He has been wearing some compressionstockings [id number] that does notice the swelling is better. He is wearing some socks today,but not regular compression stocking. He does not use any NSAIDs. His recent labs noted normal creatinine, liver tests. His BNP was normal. He tells me he does not have congestive heart failure. I do not see UA or a TSH done. He has never had any history of DVT. His back is the major problem, but he thinks he walks normally with good calf pump function. ASSESSMENT AND PLAN: 1. Chronic venous stasis. 2. Bilateral lower extremity edema. Patient has some mild pitting edema with right more than left, unclear etiology. I will go ahead and get a UA, TSH, venous incomp testing. Recommend leg elevation and calf pump exercises. Strongly recommend daily compression stockings from morning to night. 3. CAD- PCI. Patient denies that he had any heart failure: His BNP in March was okay as well. 4. COPD. He tells me he has a very early COPD. I would also recommend that he should be evaluated for sleep apnea. 5. Hypertension. Blood pressure mildly elevated, as he is out of medications for the last couple ofdays. 6. Hyperlipidemia. Would defer to you. 7. CAD- PCI. He had been to [facility]. Follow up in 3 months with TSH, UA and VVI testing. Medications: Current Outpatient Medications: ??? metOLazone 5 MG tablet, Take 5 mg by mouth daily., Disp: , Rfl: ??? pregabalin 75 MG capsule, Take 75 mg by mouth 2 (two) times daily., Disp: , Rfl: ??? albuterol (2.5 MG/3ML) 0.083% nebulizer solution, [...] MG tablet, , Disp: , Rfl: ??? tiZANidine 2 MG tablet, Take 2 mg by mouth every 6 (six) hours as needed., Disp: , Rfl: ??? Umeclidinium [place] (INCRUSE ELLIPTA) 62.5 MCG/INH AEROSOL POWDER, BREATH [...] and snoring. Cardiovascular: See HPI. Positive for claudication and leg swelling. Gastrointestinal: Negative for blood in stool and melena. Genitourinary: Negative for dysuria. Musculoskeletal: Negative for myalgias and new or worsening joint stiffness/pain. Skin: Negative for rash. Neurological: Negative for tingling/numbness and focal weakness. Endo/Heme/Allergies: Negative for new or significant bruising/bleeding and polydipsia. Psychiatric/Behavioral: Negative for depression and new or significant memory loss. Vitals: 09/08/20 1515 09/08/20 1516 BP: (!) 158/103 (!) 155/108 BP Location: Left arm Right arm Pulse: 97 Weight: 109.9 kg (242 lb 3.2 oz) Height: 5' 9 (1.753 m) Body mass index is 35.77 kg/m??. Cardiac Exam Rate/Rhythm: Normal rate and regular rhythm. PMI: PMI is not displaced. Pulses: Normal pulses. Femoral pulses are 2+ on the right side and 2+ on the left side. Heart Sounds: Normal heart sounds. Normal S1 sounds. Normal S2 sounds. No gallop present. No S3. NoS4. Murmurs: Edema left: 1+ and 0. Edema Right: 1+. Physical Exam Constitutional: No distress. Healthy Appearance. [...] affect. Normal motor skills. Normal gait. Comments: Edema noted bilaterally with right little more than left. Varicosities noted though smaller varicose veins with reticular//spider veins noted. No edema noted in feet. Diagnoses/Impression: 1. Bilateral lower extremity edema URINALYSIS THYROID STIM HORMONE, TSH 2. Varicose veins of lower extremities with complications, bilateral USV VENOUS REFLUX LOW NENA 3. Essential hypertension Referring Provider: TRAE Jerome PCP: DOC ARMAS MD UGATOR SUPERVISOR UGATOR SUPERVISOR documented in this encounter Plan of Treatment Not on file documented as of this encounter Results * USV VENOUS REFLUX LOW NENA (12/04/2020 2:21 PM CORRUGATOR SUPERVISOR) Anatomical Region Laterality Modality Extremity Ultrasound 12/04/2020 1:37 PM CORRUGATOR SUPERVISOR Narrative 12/04/2020 2:28 PM CORRUGATOR SUPERVISOR ?Vascular Report Pat.Name: ??MANUS, SCOTT ? Pat.ID: ?[id number] ? St.Date: ?? 12/04/2020 ? Refer.MD: ??HUEY CAMARILLO ? Exam Time: 1:37:00 PM ? Study Type:PVI VENOUS DUPLEX SCAN REFLUX BILAT ??Age: ??1970,49Y ? Sex: ? MALE ? Sonogrphr: Jonas Castillo RVSTEFANYat. Stat.:Outpatient ? ICD - 9: ?? R60.9 Limb Edema ? CPT - 4: ?33772 Venous Duplex LE/UE Reason for Study: Edema [...] MD - 12/04/2020 Vascular Report Pat.Name: SCOTT SANCHEZ Pat.ID: [id number] .Date: 12/04/2020 Refer.MD: HUEY CAMARILLO Exam Time: 1:37:00 PM Study Type:PVI VENOUS DUPLEX SCAN REFLUX BILAT Age: 2 1970,49Y Sex: MALE Sonogrphr: Maribel Nichole. Stat.:Outpatient ICD - 9: R60.9 Limb Edema CPT - 4: 28106 Venous Duplex LE/UE Reason for Study: Edema [...] Signed 12/04/2020 02:28 PM Huey Camarillo M.D. Huey Camarillo MD VAS Final Result * (ABNORMAL) THYROID STIM HORMONE, TSH (09/08/2020 4:13 PM CORRUGATOR SUPERVISOR) TSH 4.194(H) 0.358 - 3.740 uIU/ML 09/08/2020 4:49 PM CORRUGATOR SUPERVISOR [facility] 09/08/2020 4:13 PM CORRUGATOR SUPERVISOR Huey Camarillo MD LABORATORY Final Result [facility] [address] [place] [address], * URINALYSIS (09/08/2020 4:10 PM CORRUGATOR SUPERVISOR) COLOR (U) YELLOW 09/08/2020 4:46 PM CORRUGATOR SUPERVISOR [facility] TRANSPARENCY CLEAR 09/08/2020 4:46 PM CORRUGATOR SUPERVISOR [facility] SPECIFIC GRAVITY (U) 1.020 1.000 - 1.025 09/08/2020 4:46 PM CORRUGATOR SUPERVISOR [facility] U PH 5.5 5.0 - 8.0 09/08/2020 4:46 PM CORRUGATOR SUPERVISOR [facility] LEUKOCYTES (U) NEGATIVE NEGATIVE 09/08/2020 4:46 PM CORRUGATOR SUPERVISOR [facility] NITRITES NEGATIVE NEGATIVE 09/08/2020 4:46 PM CORRUGATOR SUPERVISOR [facility] PROTEIN (U) NEGATIVE NEGATIVE 09/08/2020 4:46 PM CORRUGATOR SUPERVISOR [facility] URINE GLUCOSE NEGATIVE NEGATIVE 09/08/2020 4:46 PM CORRUGATOR SUPERVISOR [facility] KETONES MG/DL (U) NEGATIVE NEGATIVE 09/08/2020 4:46 PM CORRUGATOR SUPERVISOR [facility] UROBILINOGEN 0.2 <1.0 EU/DL 09/08/2020 4:46 PM CORRUGATOR SUPERVISOR [facility] BILIRUBIN (U) NEGATIVE NEGATIVE 09/08/2020 4:46 PM CORRUGATOR SUPERVISOR [facility] BLOOD (U) NEGATIVE NEGATIVE 09/08/2020 4:46 PM CORRUGATOR SUPERVISOR [facility] WBC/HPF 0-5 0 - 5 /HPF 09/08/2020 4:46 PM CORRUGATOR SUPERVISOR [facility] EPI/HPF OCCASIONAL /LPF 09/08/2020 4:46 PM CORRUGATOR SUPERVISOR [facility] URINE SPECIMEN FROM URETHRA / Unknown 09/08/2020 4:10 PM CORRUGATOR SUPERVISOR Huey Camarillo MD URINE ORDERABLES Final Result [facility] [address] [place] [address], documented in this encounter Visit Diagnoses Diagnosis Bilateral lower extremity edema- Primary Edema Varicose veins of lower extremities with complications, bilateral Essential hypertension Unspecified essential hypertension Varicose veins of lower extremities with complications, bilateral documented in this encounter Care Teams Title Searcher Relationship Specialty Start Date End Date Doc Armas MD [address] [place] [phone] PCP - General FAMILY PRACTICE 03/21/20 Jacky Martinez MD [address] [place] [address] Consulting Physician INTERVENTIONAL CARDIOLOGY 04/23/20 Huey Camarillo MD [address] [place] [address] Vascular/Dock Clerk INTERNAL MEDICINE 08/13/20 documented as of this encounter
--- OUTSIDE RECORDS SUMMARY | 2024-09-27 10:36 | XMS_ITS | Encounter Summary ---
Author Organization [facility] Address [facility] [place] [address] [place] [address] Care Team Providers Care Regional Refrigerated Cdl Truck Driver Name Role Phone Doc Jiang MD Primary Care Provider Jacky Martinez MD Unavailable [phone] Huey Camarillo MD Unavailable Encounter Details Date Type Department Care Team (Late st Contact Info) Description 09/07/2020 Orders Only [facility] [place] [address] Huey Camarillo MD [address] [place] [address] Social History Tobacco Use Types Packs/Day Years [...] on file Legal Sex Male 10:23 PM HOTEL RECEPTIONIST Gender Identity Not on file Sexual Orientation Not on file COVID-19 Exposure Response Date Recorded In the last month, have you been in contact with someone who was confirmed or suspected to have Coronavirus / COVID-19? No / Unsure 09/08/2020 3:50 PM HOTEL RECEPTIONIST documented as of this encounter Plan of Treatment Not on file documented as of this encounter Visit Diagnoses Not on filedocumented in this encounter Care Teams Regional Refrigerated Cdl Truck Driver Relationship Specialty Start Date End Date Doc Jiang MD [address] [place] [phone] PCP - General FAMILY PRACTICE 03/21/20 Jacky Martinez MD [address] [place] [address] Consulting Physician INTERVENTIONAL CARDIOLOGY 04/23/20 Huey Camarillo MD [address] [place] [address] Vascular/Director Of Teacher Education INTERNAL MEDICINE 08/13/20 documented as of this encounter
--- OUTSIDE RECORDS SUMMARY | 2024-09-27 10:36 | XMS_ITS | Encounter Summary ---
Author Organization [facility] Address [facility] [place] [address] [place] [address] Care Team Providers Care Oil Dispenser Name Role Phone Doc Jiang MD Primary Care Provider Jacky Martinez MD Unavailable Huey Camarillo MD Unavailable Encounter Details Date Type Department Care Team (Late st Contact Info) Description 08/13/2020 Abstract [facility] [address] [place] [address] Huey Camarillo MD [address] [place] [address] Social History Tobacco Use Types Packs/Day Years [...] on file Legal Sex Male 10:23 PM PROMOTIONAL ADVERTISING ASSISTANT Gender Identity Not on file Sexual Orientation Not on file documented as of this encounter Last Filed Vital Signs Vital Sign Reading Time Taken Comments Blood Pressure 128/80 08/13/2020 1:13 PM PROMOTIONAL ADVERTISING ASSISTANT Pulse - - Temperature - - Respiratory Rate 18 08/13/2020 1:13 PM PROMOTIONAL ADVERTISING ASSISTANT Oxygen Saturation - - Inhaled Oxygen Concentration - - Weight 115.7 kg (255 lb) 08/13/2020 1:13 PM PROMOTIONAL ADVERTISING ASSISTANT Height 176.5 cm (5' 9.5 ) 08/13/2020 1:13 PM PROMOTIONAL ADVERTISING ASSISTANT Body Mass Index 37.12 08/13/2020 1:13 PM PROMOTIONAL ADVERTISING ASSISTANT documented in this encounter Plan of Treatment Not on file documented as of this encounter Visit Diagnoses Not on filedocumented in this encounter Care Teams Oil Dispenser Relationship Specialty Start Date End Date Doc Jiang MD [address] [place] [phone] PCP - General FAMILY PRACTICE 03/21/20 Jacky Martinez MD [address] [place] [address] Consulting Physician INTERVENTIONAL CARDIOLOGY 04/23/20 Huey Camarillo MD [address] [place] [address] Vascular/Heating Unit Mechanic INTERNAL MEDICINE 08/13/20 documented as of this encounter
--- OUTSIDE RECORDS SUMMARY | 2024-09-27 10:36 | XMS_ITS | Encounter Summary ---
Author Organization [facility] Address [address] [place] [address]. [place], [place] [address] [place] [address] Care Team Providers Care Chain Splitter Name Role Phone Doc Jiang MD Primary Care Provider Jacky Martinez MD Unavailable [phone] Encounter Details Date Type Department Care Team (Latest Contact Info) Description 07/10/2020 Travel Social History Tobacco Use Types Packs/Day [...] on file Legal Sex Male 10:23 PM BRAZER ELECTRONIC Gender Identity Not on file Sexual Orientation [...] on filedocumented in this encounter Care Teams Chain Splitter Relationship Specialty Start Date End Date Doc Jiang MD [address] [place] [address] PCP - General FAMILY PRACTICE 03/21/20 Jacky Martinez MD [address] [place] [phone] Consulting Physician INTERVENTIONAL CARDIOLOGY 04/23/20 documented as of this encounter
--- OUTSIDE RECORDS SUMMARY | 2024-09-27 10:36 | XMS_ITS | Encounter Summary ---
Author Organization [facility] Address [facility] [place] [address] [place] [address] Care Team Providers Care Painting Technician Name Role Phone Doc Jiang MD Primary Care Provider Jacky Martinez MD Unavailable [phone] Huey Camarillo MD Unavailable Encounter Details Date Type Department Care Team (Latest Contact Info) Description 09/08/2020 Travel Social History Tobacco Use Types Packs/Day [...] on file Legal Sex Male 10:[address] DESIGNER Gender Identity Not on file Sexual Orientation Not on file COVID-19 Exposure Response Date Recorded In the last month, have you been in contact with someone who was confirmed or suspected to have Coronavirus / COVID-19? No / Unsure 09/08/2020 3:[address] DESIGNER documented as of this encounter Plan of Treatment Not on file documented as of this encounter Visit Diagnoses Not on filedocumented in this encounter Care Teams Painting Technician Relationship Specialty Start Date End Date Doc Jiang MD [address] [place] [phone] PCP - General FAMILY PRACTICE 03/21/20 Jacky Martinez MD [address] [place] [phone] Consulting Physician INTERVENTIONAL CARDIOLOGY 04/23/20 Huey Camarillo MD [address] [place] [phone] Vascular/Hone Operator INTERNAL MEDICINE 08/13/20 documented as of this encounter
--- OUTSIDE RECORDS SUMMARY | 2024-09-27 10:36 | XMS_ITS | Encounter Summary ---
Author Organization [facility] Address [address] [place] [address]. [place] [address] [place] [address] Care Team Providers Care Cloth Burler Name Role Phone Doc Jiang MD Primary Care Provider Jacky Martinez MD Unavailable [phone] Huey Camarillo MD Unavailable Reason for Referral * Imaging (Routine) - Closed Specialty Diagnoses / Procedures Referred By Sue johnson Referred To Contact RADIOLOGY Diagnoses Chest pain Procedures NM PHARM NUC STRESS TEST 1DQuan Osborne MD Phone: tel: fax: Referral ID Status Reason Start Date Expiration Date Visits Re quested Visits Authorized [id number] Closed 11/17/2021 01/15/2022 3 3 MANUFACTURE SUPERVISOR Reason for Visit * Imaging (Routine) - Closed Specialty Diagnoses / Procedures Referred By Sue johnson Referred To Contact RADIOLOGY Diagnoses Chest pain Procedures NM PHARM NUC STRESS TEST Quan Champagne MD Phone: tel: fax: Referral ID Status Reason Start Date Expiration Date Visits Re quested Visits Authorized [id number] Closed 11/17/2021 01/15/2022 3 3 Encounter Details Date Type Department Care Team (Latest Contact Info) Description 11/19/2021 7:04 AM PIPE MANUFACTURE SUPERVISOR Hospital Encounter [facility] [address] [place] [address] [place] [address] Quan Yanez MD [address] [place] [phone] Discharge Disposition: Home or Self Care (Routine [...] on file Legal Sex Male 10:23 PM PIPE MANUFACTURE SUPERVISOR Gender Identity Not on file Sexual Orientation Not on file COVID-19 Exposure Response Date Recorded In the last 10 days, have yo u been in contact with someone who was confirmed or suspected to have Coronavirus/COVID-19? No / Unsure 11/19/2021 6:58 AM PIPE MANUFACTURE SUPERVISOR documented as of this encounter Medications at [...] 09/07/2020 3 documented as of this encounter Plan of Treatment Not on file documented as of this encounter Procedures Procedure Name Priority Date/Time Associated Diagnosis Comments NM PHARM NUC STRESS TEST 1DAY Routine 11/19/2021 12:51 PM PIPE MANUFACTURE SUPERVISOR Chest pain documented in this encounter Results * NM PHARM NUC STRESS TEST 1DAY (11/19/2021 12:51 PM PIPE MANUFACTURE SUPERVISOR) Anatomical Region Laterality Modality Cardiac Nuclear Medicine 11/19/2021 12:5 1 PM PIPE MANUFACTURE SUPERVISOR Impressions 11/19/2021 12:54 PM PIPE MANUFACTURE SUPERVISOR IMPRESSION: 1. No evidence of ischemia or infarction. 2. Normal wall motion study. 3. Stress LVEF is borderline diminished at 54%, likely on the basis of pharmacologic stress. Ordered By: QUAN YANEZ Interpreted By: Pj Ruiz MD, 11/19/2021 12:51 PM Narrative 11/19/2021 12:54 PM PIPE MANUFACTURE SUPERVISOR Examination: Rest/stress myocardial perfusion scan with gated SPECT. Exam time: 0710 hours. Clinical history: Chest pain. Dyspnea. Fatigue. History of coronary artery disease with stenting. Elevated cholesterol. Hypertension. Family history of heart disease. Comparison: None. Radiopharmaceutical: ??8.3 mCi 99m Tc Cardiolite at rest; 26.8 mCi 99m Tc Cardiolite at peak stress. Findings: ??Patient monitoring during stress and EKG interpretation were provided by Dr. Gage. Resting SPECT myocardial perfusion images in three standard planes were acquired. The patient was subsequently stressed pharmacologically via IV administration of unit dose of Lexiscan. Maximum heart rate was 96 beats per minute. No EKG ischemic changes are reported. Post stress SPECT myocardial perfusion images in three standard planes were acquired. Gated SPECT was also performed, post stress. Both sets of images demonstrate some reconstruction artifact related to subdiaphragmatic activity. No reversible or irreversible perfusion defects are identified to suggest ischemia or infarction. Left ventricular chamber size appears normal. Findings were confirmed on image review at the console. The gated SPECT study shows no diffuse or focal wall motion abnormality. The calculated left ventricular ejection fraction at stress is borderline diminished at 54%, likely on the basis of pharmacologic stress. ??TID: 1.31. Procedure Note Pj Ruiz MD - 11/19/2021 Examination: Rest/stress myocardial perfusion scan with gated SPECT. Exam time: 0710 hours. Clinical history: Chest pain. Dyspnea. Fatigue. History of coronary arterydisease with stenting. Elevated cholesterol. Hypertension. Family historyof heart disease. Comparison: None. Radiopharmaceutical: 8.3 mCi 99m Tc Cardiolite at rest; 26.8 mCi 99m TcCardiolite at peak stress. Findings: Patient monitoring during stress and EKG interpretation wereprovided by Dr. Gage. Resting SPECT myocardial perfusion images inthree standard planes were acquired. The patient was subsequently stressedpharmacologically via IV administration of unit dose of Lexiscan. Maximumheart rate was 96 beats per minute. No EKG ischemic changes are reported.Post stress SPECT myocardial perfusion images in three standard planeswere acquired. Gated SPECT was also performed, post stress. Both sets of images demonstrate some reconstruction artifact related tosubdiaphragmatic activity. No reversible or irreversible perfusion defectsare identified to suggest ischemia or infarction. Left ventricular chambersize appears normal. Findings were confirmed on image review at theconsole. The gated SPECT study shows no diffuse or focal wall motion abnormality.The calculated left ventricular ejection fraction at stress is borderlinediminished at 54%, likely on the basis of pharmacologic stress. TID:1.31. IMPRESSION: 1. No evidence of ischemia or infarction. 2. Normal wall motion study. 3. Stress LVEF is borderline diminished at 54%, likely on the basis ofpharmacologic stress. Ordered By: QUAN YANEZ Interpreted By: Pj Ruiz MD, 11/19/2021 12:51 PM us Quan Yanez MD NUC MED Final Result documented in this encounter Visit Diagnoses Diagnosis Chest pain Chest pain, unspecified documented in this encounter Care Teams Cloth Burler Relationship Specialty Start Date End Date Doc Jiang MD [address] [place] [phone] PCP - General FAMILY PRACTICE 03/21/20 Jacky Martinez MD [address] [place] [address] Consulting Physician INTERVENTIONAL CARDIOLOGY 04/23/20 Huey Camarillo MD [address] [place] [address] Vascular/Acute Care Nurse Practitioner INTERNAL MEDICINE 08/13/20 documented as of this encounter
--- OUTSIDE RECORDS SUMMARY | 2024-09-27 10:36 | XMS_ITS | Encounter Summary ---
Author Organization [facility] Address [facility] [place] [address] [place] [address] Care Team Providers Care Steel Erector Name Role Phone Doc Jiang MD Primary Care Provider Jacky Martinez MD Unavailable [phone] Huey Camarillo MD Unavailable Encounter Details Date Type Department Care Team (Latest Contact Info) Description 12/04/2020 Travel Social History Tobacco Use Types Packs/Day [...] on file Legal Sex Male 10:23 PM SPEECH LANGUAGE ASSISTANT Gender Identity Not on file Sexual Orientation Not on file COVID-19 Exposure Response Date Recorded In the last month, have you been in contact with someone who was confirmed or suspected to have Coronavirus / COVID-19? No / Unsure 12/04/2020 12:50 PM SPEECH LANGUAGE ASSISTANT documented as of this encounter Plan of Treatment Not on file documented as of this encounter Visit Diagnoses Not on filedocumented in this encounter Care Teams Steel Erector Relationship Specialty Start Date End Date Doc Jiang MD [address] [place] [phone] PCP - General FAMILY PRACTICE 03/21/20 Jacky Martinez MD [address] [place] [phone] Consulting Physician INTERVENTIONAL CARDIOLOGY 04/23/20 Huey Camarillo MD [address] [place] [phone] Vascular/Post Doctoral Researcher INTERNAL MEDICINE 08/13/20 documented as of this encounter
--- OUTSIDE RECORDS SUMMARY | 2024-09-27 10:36 | XMS_ITS | Encounter Summary ---
Author Organization [facility] Address [facility] [facility] [place] [address] [place] [address] Care Team Providers Care Day Care Center Director Name Role Phone Doc Jiang MD Primary Care Provider Jacky Martinez MD Unavailable [phone] Huey Camarillo MD Unavailable Encounter Details Date Type Department Care Team (Latest Contact Info) Description 09/08/2020 3:50 PM PATTERN FITTER - 09/08/2020 11:59 PM PATTERN FITTER Hospital Encounter [facility] [address] [facility] [address] [place] [address] Huey Camarillo MD [address] [place], [place] [id number] Discharge Disposition: Home or Self Care (Routine [...] on file Legal Sex Male 10:23 PM PATTERN FITTER Gender Identity Not on file Sexual Orientation Not on file COVID-19 Exposure Response Date Recorded In the last month, have you been in contact with someone who was confirmed or suspected to have Coronavirus / COVID-19? No / Unsure 09/08/2020 3:50 PM PATTERN FITTER documented as of this encounter Medications at [...] lisinopril 10 MG tablet 09/07/2020 3 Umeclidinium [place] (INCRUSE ELLIPTA) 62.5 MCG/INH AEROSOL POWDER, BREATH ACTIVATED 2 documented as of this encounter Plan of Treatment Not on file documented as of this encounter Procedures Procedure Name Priority Date/Time Associated Diagnosis Comments THYROID STIM HORMONE TSH Routine 09/08/2020 4:13 PM PATTERN FITTER Bilateral lower extremity edema HC URINALYSIS AUTO W/MICRO Routine 09/08/2020 4:10 PM PATTERN FITTER Bilateral lower extremity edema documented in this encounter Results * (ABNORMAL) THYROID STIM HORMONE, TSH (09/08/2020 4:13 PM PATTERN FITTER) TSH 4.194(H) 0.358 - 3.740 uIU/ML 09/08/2020 4:49 PM PATTERN FITTER [facility] 09/08/2020 4:13 PM PATTERN FITTER Huey Camarillo MD LABORATORY Final Result [facility] [address] [place] [address], * URINALYSIS (09/08/2020 4:10 PM PATTERN FITTER) COLOR (U) YELLOW 09/08/2020 4:46 PM PATTERN FITTER [facility] TRANSPARENCY CLEAR 09/08/2020 4:46 PM PATTERN FITTER [facility] SPECIFIC GRAVITY (U) 1.020 1.000 - 1.025 09/08/2020 4:46 PM PATTERN FITTER [facility] U PH 5.5 5.0 - 8.0 09/08/2020 4:46 PM PATTERN FITTER [facility] LEUKOCYTES (U) NEGATIVE NEGATIVE 09/08/2020 4:46 PM PATTERN FITTER [facility] NITRITES NEGATIVE NEGATIVE 09/08/2020 4:46 PM PATTERN FITTER [facility] PROTEIN (U) NEGATIVE NEGATIVE 09/08/2020 4:46 PM PATTERN FITTER [facility] URINE GLUCOSE NEGATIVE NEGATIVE 09/08/2020 4:46 PM PATTERN FITTER [facility] KETONES MG/DL (U) NEGATIVE NEGATIVE 09/08/2020 4:46 PM PATTERN FITTER [facility] UROBILINOGEN 0.2 <1.0 EU/DL 09/08/2020 4:46 PM PATTERN FITTER [facility] BILIRUBIN (U) NEGATIVE NEGATIVE 09/08/2020 4:46 PM PATTERN FITTER [facility] BLOOD (U) NEGATIVE NEGATIVE 09/08/2020 4:46 PM PATTERN FITTER [facility] WBC/HPF 0-5 0 - 5 /HPF 09/08/2020 4:46 PM PATTERN FITTER [facility] EPI/HPF OCCASIONAL /LPF 09/08/2020 4:46 PM PATTERN FITTER [facility] URINE SPECIMEN FROM URETHRA / Unknown 09/08/2020 4:10 PM PATTERN FITTER Huey Camarillo MD URINE ORDERABLES Final Result [facility] [address] [place] [address], documented in this encounter Visit Diagnoses Diagnosis Bilateral lower extremity edema Edema documented in this encounter Care Teams Day Care Center Director Relationship Specialty Start Date End Date Doc Jiang MD [address] [place] [phone] PCP - General FAMILY PRACTICE 03/21/20 Jacky Martinez MD [address] [place] [address] Consulting Physician INTERVENTIONAL CARDIOLOGY 04/23/20 Huey Camarillo MD [address] [place] [address] Vascular/Manager System INTERNAL MEDICINE 08/13/20 documented as of this encounter
--- OUTSIDE RECORDS SUMMARY | 2024-09-27 10:36 | XMS_ITS | Encounter Summary ---
Author Organization [facility] Address [address] [place] [address]. [place] [address] [place] [address] Care Team Providers Care Wiping Cloth Cutter Name Role Phone Doc Jiang MD Primary Care Provider Jacky Martinez MD Unavailable [phone] Huey Camarillo MD Unavailable Reason for Visit * Reason Comments Knee Pain Encounter Details Date Type Department Care Team (Late st Contact Info) Description 11/13/2020 9:34 PM IMPREGNATOR AND DRIER - 11/13/2020 11:19 PM [facility] Emergency [facility] [address] [place] [address] Pacheco Garcias, DO [address] [place] [address] Knee Pain Discharge Disposition: Home or Self Care [...] on file Legal Sex Male 10:23 PM IMPREGNATOR AND DRIER Gender Identity Not on file Sexual Orientation Not on file COVID-19 Exposure Response Date Recorded In the last month, have you been in contact with someone who was confirmed or suspected to have Coronavirus / COVID-19? No / Unsure 11/13/2020 9:28 PM IMPREGNATOR AND DRIER documented as of this encounter Last Filed Vital Signs Vital Sign Reading Time Taken Comments Blood Pressure 132/75 11/13/2020 9:41 PM IMPREGNATOR AND DRIER Pulse 97 11/13/2020 9:41 PM IMPREGNATOR AND DRIER Temperature 36.2 ??C (97.1 ??F) 11/13/2020 9:41 PM CS T Respiratory Rate 18 11/13/2020 9:41 PM IMPREGNATOR AND DRIER Oxygen Saturation 95% 11/13/2020 9:41 PM IMPREGNATOR AND DRIER Inhaled Oxygen Concentration - - Weight 106.6 kg (235 lb) 11/13/2020 9:41 PM IMPREGNATOR AND DRIER Height 177.8 cm (5' 10 ) 11/13/2020 9:41 PM IMPREGNATOR AND DRIER Body Mass Index 33.72 11/13/2020 9:41 PM IMPREGNATOR AND DRIER documented in this encounter Discharge Instructions * Discharge Instructions* Pacheco Garcias DO - 11/13/2020 11:03 PM IMPREGNATOR AND DRIER Return in the morning to have ultrasound completed to rule out deep venous blood clot. Wear knee immobilizer as long as it seems to be providing benefit to stabilize fibula. You will need to follow-up with orthopedics as soon as you can. EGNATOR AND DRIER * Attachments The following attachments cannot be sent through Care Everywhere. * Fibula Fracture Discharge Instructions ([place]) documented in this encounter Medications at Time [...] lisinopril 10 MG tablet 09/07/2020 3 Umeclidinium [place] (INCRUSE ELLIPTA) 62.5 MCG/INH AEROSOL POWDER, BREATH ACTIVATED 2 documented as of this encounter ED Notes * Pacheco Garcias, DO - 11/13/2020 9:41 PM CST Chief Complaint Chief Complaint Patient presents with ??? Knee Pain History of Present Illness 49-year-old male presents the emergency department complaining of left knee pain and swelling after slipping on ice and hyperextending his knee 3 days ago. The patient states that he had that this knee reconstructed with cadaver ligaments in the distant past. He reports that prior to thisweek's injury the knee would occasionally give way, but did not have severe pain or swelling. Sincethis injury, he has been elevating his leg, icing the knee, using compression wrap, and taking ibuprofen. Patient chronically takes Belbuca and Lyrica for low back pain. Patient has been walking witha cane. Patient reports that he had a DVT in this leg years ago and is concerned that he has developed a new one. Patient reports mild chronic swelling of bilateral lower extremities. He denies any other acute issues. 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 [...] hours as needed for Wheezing. Doc Abstract budesonide-formoterol 160-4.5 MCG/ACT inhaler Inhale 2 puffs into the lungs 2 (two) times daily. Doc Abstract Buprenorphine HCl (BELBUCA) [address] 1 Film inside cheek. Doc Abstract carvedilol 3.125 MG tablet Take 3.125 mg by mouth 2 (two) times daily. 07/04/20 Doc Abstract COMBIVENT RESPIMAT 20-100 MCG/ACT inhaler INHALE 1 PUFF BY MOUTH 4 TIMES DAILY FOR CHRONIC OBSTRUCTIVE PULMONARY DISEASE 08/13/20 Doc Abstract COMPRESSION STOCKINGS 20-30 MMHG Compression stockings, knee-high, open or closed toe Dx: I83.893 09/07/20 Huey Camarillo MD fenofibrate 145 MG tablet 09/07/20 Doc Abstract furosemide 20 MG tablet Take 20 mg by mouth daily. Indications: 1-2 daily prn Doc Abstract lisinopril 10 MG tablet 09/07/20 Doc Abstract metOLazone 5 MG tablet Take 5 mg by mouth daily. Doc Abstract pregabalin 75 MG capsule Take 75 mg by mouth 2 (two) times daily. Doc Abstract tiZANidine 2 MG tablet Take 2 mg by mouth every 6 (six) hours as needed. Doc Abstract Umeclidinium [place] (INCRUSE ELLIPTA) 62.5 MCG/INH AEROSOL POWDER, BREATH [...] Date ??? BACK SURGERY ??? CORONARY ANGIOPLASTY 2015 ??? KNEE SURGERY FAMILY HISTORY: No family history on file. SOCIAL HISTORY: Social History Tobacco Use ??? Smoking status: Former Smoker ??? Smokeless tobacco: Never Used Substance Use Topics ??? Alcohol use: Yes Frequency: Never Comment: occasional ??? Drug use: Not Currently Review of Systems Review of Systems All other systems reviewed and are negative. Physical Exam Filed Vitals: 11/13/20 2141 BP: 132/75 Pulse: 97 Resp: 18 Temp: 97.1 ??F (36.2 ??C) TempSrc: Temporal SpO2: 95% Weight: 106.6 kg (235 lb) Height: 5' 10 (1.778 m) Physical Exam Vitals signs and nursing note reviewed. Constitutional: General: He is not in acute distress. Appearance: He is well-developed. He is not diaphoretic. HENT: Head: Normocephalic and atraumatic. Eyes: Conjunctiva/sclera: Conjunctivae normal. Pulmonary: Effort: Pulmonary effort is normal. No respiratory distress. Breath sounds: Normal breath sounds. Musculoskeletal: General: Swelling (left knee) and tenderness (medial left knee) present. Right lower leg: Edema (+1) present. Left lower leg: Edema (+1) present. Comments: Positive Homans on the left Neurological: Mental Status: He is alert and oriented to person, place, and time. Psychiatric: Behavior: Behavior normal. Thought Content: Thought content normal. Judgment: Judgment normal. Diagnostic Studies / Procedures ELECTROCARDIOGRAMS: No results found for this visit on 11/13/20. LABORATORY STUDIES: Results for orders placed or performed during the hospital encounter of 11/13/20 D-DIMER, QUANTITATIVE Result Value Ref Range D-DIMER 599 (H) 0 - 500 ng[FEU]/mL IMAGING STUDIES XR KNEE+SUNRISE LT 3V Final Result by User, [id number] (11/13 2251) Examination: XR KNEE+SUNRISE LT 3V Exam time: 11/13/2020 10:45 PM Clinical history: Hyperextension injury several days ago Comparison: 06/03/2015 Technique: AP, crosstable lateral and sunrise views Findings: Probable small joint effusion. No other soft tissue abnormality. On the AP view only there is subtle linear lucency proximal fibular head suspicious for nondisplaced fracture. No other evidence of fracture. No focal lytic bone destructive lesion. 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 IMPRESSION: 1) Findings suggesting subtle nondisplaced proximal fibular head fracture. 2. No other evidence to suggest fracture. Small joint effusion. 3. 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 Referred By: PACHECO GARCIAS Interpreted By: Julian Laurent MD, 11/13/2020 10:49 PM USV KISHOR DUPLEX LOW EXT LT (Results Pending) ED Course / Medical Decision Making MDM Number of Diagnoses or Management Options Closed fracture of proximal end of left fibula, unspecified fracture morphology, initial encounter:new and requires workup Elevated d-dimer: new and requires workup Lower extremity edema: new and requires workup Amount and/or Complexity of Data Reviewed Clinical lab tests: reviewed and ordered Tests in the radiology section of CPT??: reviewed and ordered Risk of Complications, Morbidity, and/or Mortality Presenting problems: moderate Diagnostic procedures: moderate Management options: low Patient Progress Patient progress: stable Clinical Impression Closed fracture of proximal end of left fibula, unspecified fracture morphology, initial encounter (Primary) Lower extremity edema Elevated d-dimer Disposition: Discharge Pacheco Garcias DO 11/13/20 0213 EGNATOR AND DRIER * Brii Martinez RN - 11/13/2020 9:39 PM CST PT C/O PAIN AND SWELLING TO LT KNEE. PT REPORTS SLIPPED AND FELL AND HYPEREXTENDED LT KNEE ON Monday. EGNATOR AND DRIER documented in this encounter Plan of Treatment Not on file documented as of this encounter Procedures Procedure Name Priority Date/Time Associated Diagnosis Comments XR KNEE+SUNRISE LT 3V STAT 11/13/2020 10:45 PM IMPREGNATOR AND DRIER D-DIMER, QUANTITATIVE STAT 11/13/2020 10:01 PM IMPREGNATOR AND DRIER documented in this encounter Results * XR KNEE+SUNRISE LT 3V (11/13/2020 10:45 PM IMPREGNATOR AND DRIER) Anatomical Region Laterality Modality Knee Radiographic Carmella ging 11/13/2020 10:4 9 PM IMPREGNATOR AND DRIER Impressions 11/13/2020 10:51 PM IMPREGNATOR AND DRIER IMPRESSION: 1) Findings suggesting subtle nondisplaced proximal fibular head fracture. 2. No other evidence to suggest fracture. Small joint effusion. 3. 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 Referred By: PACHECO GARCIAS Interpreted By: Julian Laurent MD, 11/13/2020 10:49 PM Narrative 11/13/2020 10:51 PM IMPREGNATOR AND DRIER Examination: XR KNEE+SUNRISE LT 3V Exam time: 11/13/2020 10:45 PM Clinical history: Hyperextension injury several days ago Comparison: 06/03/2015 Technique: AP, crosstable lateral and sunrise views Findings: Probable small joint effusion. No other soft tissue abnormality. On the AP view only there is subtle linear lucency proximal fibular head suspicious for nondisplaced fracture. No other evidence of fracture. No focal lytic bone destructive lesion. 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 Procedure Note Julian Laurent MD - 11/13/2020 Examination: XR KNEE+SUNRISE LT 3V Exam time: 11/13/2020 10:45 PM Clinical history: Hyperextension injury several days ago Comparison: 06/03/2015 Technique: AP, crosstable lateral and sunrise views Findings: Probable small joint effusion. No other soft tissueabnormality. On the AP view only there is subtle linear lucency proximal fibular head suspicious for nondisplaced fracture. No other evidence of fracture. No focal lytic bone destructive lesion. 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 IMPRESSION: 1) Findings suggesting subtle nondisplaced proximal fibular headfracture. 2. No other evidence to suggest fracture. Small joint effusion. 3. Chronic degenerative osteoarthritis medial patellofemoralcompartments. Referred By: PACHECO GARCIAS Interpreted By: Julian Laurent MD, 11/13/2020 10:49 PM Pacheco Garcias DO GENERAL IMAGING Final Result * (ABNORMAL) D-DIMER, QUANTITATIVE (11/13/2020 10:01 PM IMPREGNATOR AND DRIER) D-DIMER 599(H) 0 - 500 ng{FEU}/mL 11/13/2020 10:42 PM IMPREGNATOR AND DRIER [facility] Comment: D-Dimer values less than or equal to 500 ng/mL FEU have a negative predictive value of >95% for exclusion of deep vein thrombosis and pulmonary embolism. In patients over 50 (who tend to have higher normal baseline D-Dimer values), recent studies suggest age-adjusted D-Dimer cutoff values (calculated as: age [years] x 10 ng/mL) result in equivalent outcomes and no additional false negative findings. 11/13/2020 10:0 1 PM IMPREGNATOR AND DRIER Pacheco Garcias DO LABORATORY Final Result [facility] [address] [place] [address], documented in this encounter Visit Diagnoses Diagnosis Closed fracture of proximal end of left fibula, unspecified fracture morphology, initial encounter- Primary Lower extremity edema Edema Elevated d-dimer Abnormal coagulation profile documented in this encounter Care Teams Wiping Cloth Cutter Relationship Specialty Start Date End Date Doc Jiang MD [address] [place] [phone] PCP - General FAMILY PRACTICE 03/21/20 Jacky Martinez MD [address] [place] [address] Consulting Physician INTERVENTIONAL CARDIOLOGY 04/23/20 Huey Camarillo MD [address] [place] [address] Vascular/Fire Management Specialist INTERNAL MEDICINE 08/13/20 documented as of this encounter
--- OUTSIDE RECORDS SUMMARY | 2024-09-27 10:36 | XMS_ITS | Encounter Summary ---
Author Organization [facility] Address [facility] [place] [address] [place] [address] Care Team Providers Care Search Engine Marketing Manager Name Role Phone Doc Jiang MD Primary Care Provider Jacky Martinez MD Unavailable [phone] Huey Camarillo MD Unavailable Encounter Details Date Type Department Care Team (Latest Contact Info) Description 11/13/2020 Travel Social History Tobacco Use Types Packs/Day [...] on file Legal Sex Male 10:23 PM DIMENSIONAL INSPECTOR Gender Identity Not on file Sexual Orientation Not on file COVID-19 Exposure Response Date Recorded In the last month, have you been in contact with someone who was confirmed or suspected to have Coronavirus / COVID-19? No / Unsure 11/13/2020 9:28 PM DIMENSIONAL INSPECTOR documented as of this encounter Plan of Treatment Not on file documented as of this encounter Visit Diagnoses Not on filedocumented in this encounter Care Teams Search Engine Marketing Manager Relationship Specialty Start Date End Date Doc Jiang MD [address] [place] [address] PCP - General FAMILY PRACTICE 03/21/20 Jacky Martinez MD [address] [place] [phone] Consulting Physician INTERVENTIONAL CARDIOLOGY 04/23/20 Huey Camarillo MD [address] [place] [phone] Vascular/Electronic Pagination System Operator INTERNAL MEDICINE 08/13/20 documented as of this encounter
--- OUTSIDE RECORDS SUMMARY | 2024-09-27 10:36 | XMS_ITS | Encounter Summary ---
Author Organization [facility] Address [address] [place] [address]. [place] [address] [place] [address] Care Team Providers Care Manager Lpn Name Role Phone Doc Jiang MD Primary Care Provider Jacky Martinez MD Unavailable [phone] Huey Camarillo MD Unavailable Reason for Visit * Reason Onset Date Comments Lab Results 09/09/2020 Encounter Details Date Type Department Care Team (Late st Contact Info) Description 09/09/2020 Telephone [facility] [address] [place] [address] Huey Camarillo MD [address] 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 No / Unsure 11/13/2020 9:28 PM GARDEN LABOURER documented as of this encounter Progress Notes * Chayo Hair LPN - 09/09/2020 9:[address] Camarillo reviewed labs , this short story writer informed Dr Jiang nurse Regluo to manage . Scott was made aware and voiced understanding . EN LABOURER EN LABOURER documented in this encounter Plan of Treatment Not on file documented as of this encounter Visit Diagnoses Not on filedocumented in this encounter Care Teams Manager Lpn Relationship Specialty Start Date End Date Doc Jiang MD [address] [place] [phone] PCP - General FAMILY PRACTICE 03/21/20 Jacky Martinez MD [address] [place] [address] Consulting Physician INTERVENTIONAL CARDIOLOGY 04/23/20 Huey Camarillo MD [address] [place] [address] Vascular/Steam Press Operator INTERNAL MEDICINE 08/13/20 documented as of this encounter
--- OUTSIDE RECORDS SUMMARY | 2024-09-27 10:36 | XMS_ITS | Encounter Summary ---
Author Organization [facility] Address [address] [place] [address]. [place] [address] [place] [address] Care Team Providers Care Gang Supervisor Name Role Phone Doc Jiang MD Primary Care Provider [phone] Jacky Martinez MD Unavailable [phone] Huey Camarillo MD Unavailable Reason for Referral * Procedure (Routine) - Closed Specialty Diagnoses / Procedures Referred By Sue johnson Referred To Contact Diagnoses Chest pain, unspecified type Procedures Stress Test (Nuclear) [facility] [address] [place] [address] Phone: tel: Referral ID Status Reason Start Date Expiration Date Visits Re quested Visits Authorized [id number] Closed 11/19/2021 12/17/2022 1 1 RMATION SECURITY ASSOCIATE Reason for Visit * Imaging (Routine) - Closed Specialty Diagnoses / Procedures Referred By Sue johnson Referred To Contact RADIOLOGY Diagnoses Chest pain Procedures NM PHARM NUC STRESS TEST 1DQuan Osborne MD Phone: tel: fax: Referral ID Status Reason Start Date Expiration Date Visits Re quested Visits Authorized [id number] Closed 11/17/2021 01/15/2022 3 3 Encounter Details Date Type Department Care Team (Latest Contact Info) Description 11/19/2021 7:05 AM INFORMATION SECURITY ASSOCIATE - 11/19/2021 11:59 PM INFORMATION SECURITY ASSOCIATE Hospital Encounter [facility] [address] [place] [address] Quan Garcia MD [address] [place] [place], [place] [address] [place] [address] [place] [address] Discharge Disposition: Home or Self Care (Routine [...] on file Legal Sex Male 10:23 PM INFORMATION SECURITY ASSOCIATE Gender Identity Not on file Sexual Orientation Not on file COVID-19 Exposure Response Date Recorded In the last 10 days, have yo u been in contact with someone who was confirmed or suspected to have Coronavirus/COVID-19? No / Unsure 11/19/2021 6:58 AM INFORMATION SECURITY ASSOCIATE documented as of this encounter Medications at [...] 09/07/2020 3 documented as of this encounter Procedure Notes * Alicia Pena RN - 11/19/2021 9:00 AM CST C/o mild lightheadedness with Lexiscan injection. Subsided within 2 min. Of injection RMATION SECURITY ASSOCIATE documented in this encounter Plan of Treatment Not on file documented as of this encounter Procedures Procedure Name Priority Date/Time Associated Diagnosis Comments CARDIOLOGY STRESS TEST ONLY, EXERCISE Routine 11/19/2021 10:54 AM INFORMATION SECURITY ASSOCIATE Chest pain, unspecified type documented in this encounter Visit Diagnoses Diagnosis Chest pain, unspecified type- Primary documented in this encounter Administered Medications Inactive Administered Medications - up to 3 most recent administrations Medication Order MAR Action Action Date Dose Rate Site regadenoson (LEXISCAN) injection 0.4 mg 0.4 mg, Intravenous, Once, 1 dose, On Mon11/19/21 at 0830, Administer over 10 seconds Given 11/19/2021 9:03 AM INFORMATION SECURITY ASSOCIATE 0.4 mg documented in this encounter Care Teams Gang Supervisor Relationship Specialty Start Date End Date Doc Jiang MD [address] [place] [address] PCP - General FAMILY PRACTICE 03/21/20 Jacky Martinez MD [address] [place] [phone] Consulting Physician INTERVENTIONAL CARDIOLOGY 04/23/20 Huey Camarillo MD [address] [place] [phone] Vascular/City Weighmaster INTERNAL MEDICINE 08/13/20 documented as of this encounter
--- OUTSIDE RECORDS SUMMARY | 2024-09-27 10:37 | XMS_ITS | Encounter Summary ---
Author Organization [facility] Address [address] [place] [address]. [place], [place] [address] [place] [address] Care Team Providers Care Crime Lab Analyst Name Role Phone Unavailable Primary Care Provider Unavailabl e Reason for Visit * Reason Comments Echo (SCAN) Encounter Details Date Type Department Care Team ([facility] st Contact Info) Description 02/27/2019 Scan [facility] [address] [place] [address] Scanned, Documents Echo (SCAN) Social History Tobacco Use Types Packs/Day Years Used Date Smoking Tobacco: Never Assessed Sex and Gender Information Value Date Recorded Sex Assigned at Not on file 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
--- OUTSIDE RECORDS SUMMARY | 2024-09-27 10:37 | XMS_ITS | Encounter Summary ---
Author Organization [facility] Address [facility] [place], [place] [address] [place] [address] Care Team Providers Care Film Loader Name Role Phone Unavailable Primary Care Provider Unavailabl e Encounter Details Date Type Department Care Team (Late st Contact Info) Description 02/14/[address] 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
--- OUTSIDE RECORDS SUMMARY | 2024-09-27 10:37 | XMS_ITS | Encounter Summary ---
Author Organization [facility] Address [address] [place] [address]. [place] [address] [place] [address] Care Team Providers Care Business Services Analyst Name Role Phone Doc Jiang MD Primary Care Provider Jacky Martinez MD Unavailable [phone] Reason for Visit * Reason Onset Date Comments Appointment Request 04/02/2020 Encounter Details Date Type Department Care Team (Late st Contact Info) Description 04/02/2020 Telephone [facility] [address] [place] [phone] Cassidy Brar MD [address] [place] [address] Appointment Request Social History Tobacco Use Types Packs/Day Years Used Date Smoking Tobacco: Never Assessed AUDIT-C Answer Date Recorded Frequency of Alcohol Consumption Never 04/05/2020 Average Number of Drinks Not on file 020 Frequency of Binge Drinking Not on file 03/25 Sex and Gender Information Value Date Recorded Sex Assigned at Not on file 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 No / Unsure 04/05/2020 10:13 AM CDT documented as of this encounter Progress Notes * Keren Vicente RN - 04/23/2020 2:32 PM CDT Patient called and cannot get anyone to cover his shift for his appointment tomorrow. Rescheduled to 05/08/20 at 1020 w/Dr Martinez * Last Perez RN - 04/02/2020 10:42 AM CDT Pt called, cannot make the Br[facility] appt. Rescheduled on 04/24/2020 at 1430, PHI with Dr. Diana Carlos. Letter mailed * Ashanti Villasenor - 04/02/2020 9:56 AM CDT Received call from Dr. Jiang's office to schedule a new patient consult for pt. He has a history ofCAD, HTN. [employer] PPO insurance. Records requested faxed to the telenurse. documented in this encounter Plan of Treatment Not on file documented as of this encounter Visit Diagnoses Not on filedocumented in this encounter Care Teams Business Services Analyst Relationship Specialty Start Date End Date Doc Jiang MD [address] [place] [phone] PCP - General FAMILY PRACTICE 03/21/20 Jacky Martinez MD [address] [place] [address] Consulting Physician INTERVENTIONAL CARDIOLOGY 04/23/20 documented as of this encounter
--- OUTSIDE RECORDS SUMMARY | 2024-09-27 10:37 | XMS_ITS | Encounter Summary ---
Author Organization [facility] Address [facility] [place] [address] [place] [address] Care Team Providers Care Sample Grader Name Role Phone Ismael Mendez MD Primary Care Provider [phone] Reason for Referral * Procedure (Routine) - Closed Specialty Diagnoses / Procedures Referred By Contac t Referred To Contact Diagnoses Shortness of breath Procedures Complete PFT (pre/post Ke[place], Lung Vol, Diff Capacity) ([id number], [id number], [id number], [id number]) Ismael Mendez MD [address] [place] [address] Phone: tel: fax: [facility] Parent Location [address] [place] [address] Phone: tel: fax: Referral ID Status Reason Start Date Expiration Date Visits Re quested Visits Authorized [id number] Closed 07/16/2019 08/15/2020 1 1 Encounter Details Date Type Department Care Team (Late st Contact Info) Description 07/16/2019 Transcribe Orders [facility] Pre Access Team [address] [place] [address] Ismael Mendez MD [address] [place] [address] Social History Tobacco Use Types Packs/Day Years Used Date Smoking Tobacco: Never Assessed Sex and Gender Information Value Date Recorded Sex Assigned at Not on file 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 FINDINGS: ??Postbronchodilator FEV1 is 2.36 liters (64% of predicted), FVC is 3.52 liters (78% of predicted), ratio is 67%. ??There is no improvement with bronchodilators. Total lung capacity is 81% of predicted. ??Residual volume 60% of predicted. The diffusion capacity is reduced at 53% of predicted. ??This suggests a loss of gas exchange surface area and/or increase in the thickness of the alveolar blood gas barrier. ??Findings could be due to a parenchymal or vascular disorder. Flow volume loop shows expiratory obstruction. Submitted to correlate with this exam is a walking study. ??Room air saturation was 92%. ??He walked 720 feet, lowest saturation was 89%. IMPRESSION: ??Pulmonary function test shows moderate chronic obstructive pulmonary disease. Walking study shows oxygen desaturation. ??He did not qualify for the administration of supplemental oxygen. Clinical correlation required. D: ??08/09/2019 11:28 AM #[id number] T: ??08/09/2019 01:05 PM /NTS Ismael Mendez MD PFT ORDERABLES Final Result ESCRIPTION documented in this encounter Visit Diagnoses Diagnosis Shortness of breath- Primary Dyspnea- Primary Other dyspnea and respiratory abnormality Shortness of breath documented in this encounter Care Teams Sample Grader Relationship Specialty Start Date End Date Ismael Mendez MD [address] [place] [phone] PCP - General PULMONARY DISEASE 08/07/19 03/20/20 documented as of this encounter
--- OUTSIDE RECORDS SUMMARY | 2024-09-27 10:37 | XMS_ITS | Encounter Summary ---
Author Organization [facility] Address [address] [place] [address]. 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 No / Unsure 04/05/2020 10:13 AM CDT documented as of this encounter Last Filed Vital Signs Vital Sign Reading Time Taken Comments Blood Pressure 110/77 04/05/2020 12:36 PM CDT Pulse 97 04/05/2020 12:36 PM CDT Temperature 37.3 ??C (99.2 ??F) 04/05/2020 10:18 AM C DT Respiratory Rate 20 04/05/2020 10:18 AM CDT Oxygen Saturation 94% 04/05/2020 12:36 PM CDT Inhaled Oxygen Concentration - - Weight 108.9 kg (240 lb) 04/05/2020 10:18 AM CDT Height 175.3 cm (5' 9 ) 04/05/2020 10:18 AM CDT Body Mass Index 35.44 04/05/2020 10:18 AM CDT documented in this encounter Discharge Instructions * Attachments The following attachments cannot be sent through Care Everywhere. * Community-Acquired Pneumonia in Adults ([place]) documented in this encounter Medications at Time of Discharge albuterol sulfate HFA 108 (90 Base) MCG/ACT [...] every 6 (six) hours as needed. atorvastatin 80 MG tablet Take 80 mg by mouth nightly at bedtime. 08/13/2020 BELBUCA 75 MCG FILM DISSOLVE 1 STRIP TO THE GUM Q 12 HOURS 08/19/2019 08/13/2020 carvedilol 12.5 MG tablet Take 12.5 mg by mouth 2 (two) times daily. 08/13/2020 doxycycline hyclate 100 MG capsule Take 1 capsule (100 mg total) by mouth 2 (two) times daily for 5 days. 10 capsule 04/05/2020 04/10/2020 lisinopril 10 MG tablet Take 10 mg by mouth daily. 08/13/2020 meloxicam 15 MG tablet Take 15 mg by mouth daily. 08/13/2020 predniSONE 50 MG tablet Take 1 tablet (50 mg total) by mouth daily for 5 days. 5 tablet 04/05/2020 04/10/2020 Umeclidinium Bruno (INCRUSE ELLIPTA) 62.5 MCG/INH AEROSOL POWDER, BREATH ACTIVATED 11/12/2021 documented as of this encounter ED Notes * William Garcias DO - 04/05/2020 10:35 AM CDT Chief Complaint Chief Complaint Patient presents with ??? Shortness Of Breath History of Present Illness 49-year-old male with a history of COPD presents to the emergency department complaining of acute shortness of breath at rest. Patient states that he got up per his usual routine at 0 430 and started feeling short of breath. He took a nebulizer treatment, but it did not help very much. Patient denies new cough (he has a chronic cough). He denies fever, chest pain, peripheral edema. He states that he is feeling in his normal state of health yesterday. He states that he does monitor hisoxygen level at home and it usually runs at 96% on room air, but he currently is needing 2-1/2 L tomaintain 96%. 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 Cortizone-10 [Hydrocortisone] Unknown ??? Flagyl [Metronidazole] Unknown MEDICATIONS: Prior to Admission medications Medication Sig Start Date End Date Taking? Authorizing Provider albuterol sulfate HFA 108 (90 Base) MCG/ACT inhaler Inhale 2 puffs into the lungs every 6 (six) hours as needed for Wheezing. Yes Doc Abstract atorvastatin 80 MG tablet Take 80 mg by mouth nightly at bedtime. Yes Doc Abstract budesonide-formoterol 160-4.5 MCG/ACT inhaler Inhale 2 puffs into the lungs 2 (two) times daily. Yes Doc Abstract Buprenorphine HCl (BELBUCA) [address] 1 Film inside cheek. Yes Doc Abstract carvedilol 12.5 MG tablet Take 12.5 mg by mouth 2 (two) times daily. Yes Doc Abstract doxycycline hyclate 100 MG capsule Take 1 capsule (100 mg total) by mouth 2 (two) times daily for 5days. 04/05/20 04/10/20 Yes William A Wagnon, DO furosemide 20 MG tablet Take 20 mg by mouth daily. Indications: 1-2 daily prn Yes Doc Abstract lisinopril 10 MG tablet Take 10 mg by mouth daily. Yes Doc Abstract meloxicam 15 MG tablet Take 15 mg by mouth daily. Yes Doc Abstract predniSONE 50 MG tablet Take 1 tablet (50 mg total) by mouth daily for 5 days. 04/05/20 04/10/20 Yes William Garcias, DO Umeclidinium Bruno (INCRUSE ELLIPTA) 62.5 MCG/INH AEROSOL POWDER, BREATH ACTIVATED Yes Doc Abstract tiZANidine 2 MG tablet Take 2 mg by mouth every 6 (six) hours as needed. Doc Abstract PAST MEDICAL HISTORY: Past Medical [...] and are negative. Physical Exam Filed Vitals: 04/05/20 1018 04/05/20 1022 04/05/20 1111 04/05/20 1156 BP: 118/76 116/58 Pulse: 105 105 92 Resp: 20 Temp: 99.2 ??F (37.3 ??C) SpO2: 93% 94% 98% Weight: 108.9 kg (240 lb) Height: 5' 9 (1.753 m) Physical Exam Constitutional: He is oriented to person, place, and time. He appears well- developed and well-nourished. No distress. HENT: Head: Normocephalic and atraumatic. Nose: Nose normal. Mouth/Throat: No oropharyngeal exudate. Eyes: Conjunctivae are normal. Cardiovascular: Normal rate, regular rhythm and normal heart sounds. No murmur heard. Pulmonary/Chest: Effort normal and breath sounds normal. No respiratory distress. He has no wheezes. He has no rales. Abdominal: Soft. Bowel sounds are normal. He exhibits no distension. There is no tenderness. Musculoskeletal: He exhibits no edema. Neurological: He is alert and oriented to person, place, and time. Skin: He is not diaphoretic. Psychiatric: He has a normal mood and affect. His behavior is normal. Judgment and thought content normal. Nursing note and vitals reviewed. Diagnostic Studies / Procedures ELECTROCARDIOGRAMS: No results found for this visit on 04/05/20. LABORATORY STUDIES: Results for orders placed or performed during the hospital encounter of 04/05/20 ARTERIAL BLOOD GAS Result Value Ref Range O2 SATURATION 96 95 - 100 % PH 7.40 7.35 - 7.45 PCO2 39.3 34.0 - 45.0 MMHG PO2 90.0 80.0 - 95.0 MMHG BASE DEFICIT 0.3 MMOL/L BICARB-ARTERIAL 23.8 (H) 18.0 - 23.0 MMOL/L TCO2 25.0 (H) 18.0 - 23.0 MMOL/L LITER FLOW 2 BRENT TEST N/A DRAW SITE LT BRACH CBC W/DIFF AUTOMATED Result Value Ref Range WBC 18.8 (H) 4.5 - 10.8 x10'3/uL RBC 4.82 4.50 - 6.10 x10'6/uL HGB 15.2 13.0 - 18.0 G/DL HCT 44.0 37.0 - 52.0 % MCV 91.3 78.0 - 100.0 FL MCH 31.5 (H) 27.0 - 31.0 PG MCHC 34.5 33.0 - 36.0 G/DL RDW 13.2 11.5 - 14.5 % PLT 206 150 - 350 x10'3/uL MPV 10.1 7.4 - 10.4 FL Differential Comment NORMAL REFERENCE RANGE NOT ESTABLISHED FOR THE PROPORTIONAL LEUKOCYTE DIFFERENTIAL. SEG NEUTROPHILS 83.0 % LYMPHOCYTES 11.0 % MONOCYTES 5.2 % EOSINOPHILS 0.1 % BASOPHILS 0.2 % IMMATURE GRANS 0.5 % NRBC 0.0 % ABS. NEUTROPHILS 15.59 (H) 1.60 - 8.30 x10'3/uL ABS. LYMPHOCYTES 2.06 0.80 - 4.70 x10'3/uL ABS. MONOCYTES 0.98 0.00 - 1.50 x10'3/uL ABS. EOSINOPHILS 0.02 0.00 - 0.40 x10'3/uL ABS. BASOPHILS 0.03 0.00 - 0.20 x10'3/uL ABS. IMMATURE GRANULOCYTES 0.09 (H) 0.00 - 0.03 x10'3/uL ABS. NUCLEATED RBC'S 0.00 0.00 x10'3/uL COMPREHENSIVE METABOLIC PANEL Result Value Ref Range SODIUM 135 (L) 136 - 145 MMOL/L POTASSIUM 4.1 3.5 - 5.1 MMOL/L CHLORIDE S/P/B 102 98 - 107 MMOL/L CO2 26.9 21.0 - 32.0 MMOL/L GLUCOSE 110 (H) 70 - 99 MG/DL BUN 18 6 - 24 MG/DL CREATININE S/P/B 1.15 0.70 - 1.30 MG/DL CALCIUM 8.6 8.4 - 10.5 MG/DL BILIRUBIN TOTAL S/P/B 0.8 0.2 - 1.0 MG/DL ALKALINE PHOSPHATASE S/P/B 83 45 - 115 U/L AST 26 15 - 37 U/L ALT 62 16 - 63 U/L TOTAL PROTEIN S/P/B 7.2 6.4 - 8.2 G/DL ALBUMIN S/P/B 3.6 3.4 - 5.0 G/DL ANION GAP 6.1 5.0 - 15.0 MMOL/L OSMOLALITY (CALC) 283 MOSM/KG eGFR Non-Afr. Amer. 74 (L) >89 ML/MIN/1.73 M2 eGFR Afr. Amer. 86 (L) >89 ML/MIN/1.73 M2 GFR NOTES GFR REFERENCES: D-DIMER, QUANTITATIVE Result Value Ref Range D-DIMER 414 <501 ng[FEU]/mL TROPONIN, QUANT Result Value Ref Range TROPONIN I <0.017 0.000 - 0.056 ng/mL. PRO-BRAIN NATRIURETIC PEPTIDE Result Value Ref Range Pro-B TYPE NATRIURETIC PEPTIDE 39 <125 PG/ML IMAGING STUDIES XR CHEST PA+LAT Final Result by User, [id number] (04/05 1146) Examination: Chest x-ray 2 view Exam Date/Time: 04/05/2020 11:42 AM Reason For Exam: Dyspnea at rest Increasing shortness of breath today. COPD Comparison: Chest radiograph 12/28/2018 Technique: PA and lateral views of the chest were obtained. Findings: Developing infiltrate in the right lower lobe posteriorly. Remainder of lungs grossly clear. No pleural effusion or pneumothorax. No consolidation. Heart size normal. Pulmonary vasculature within normal limits. Minimal degenerative changes in the shoulders. ======== IMPRESSION: ======== 1. Developing right lower lobe infiltrate posteriorly. Follow-up to resolution recommended. Interpreted By: Omar Lock MD, 04/05/2020 11:44 AM ED Course / Medical Decision Making MDM Number of Diagnoses or Management Options Community acquired pneumonia of right lower lobe of lung: new and requires workup COPD (chronic obstructive pulmonary disease) (CMS/HCC): minor Amount and/or Complexity of Data Reviewed Clinical lab tests: reviewed and ordered Tests in the radiology section of CPT??: reviewed and ordered Risk of Complications, Morbidity, and/or Mortality Presenting problems: moderate Diagnostic procedures: moderate Management options: moderate Patient Progress Patient progress: stable ED Course as of Apr 05 1224 Sun Apr 05, 2020 1223 Patient presents complaining of shortness of breath today. Lab and x-ray results indicative ofright lower lobe pneumonia. Discharge plan discussed with patient to be prescribed doxycycline and prednisone. The patient states that he had an allergic reaction to a cortisone joint injection previously, but he is fine with his inhaled steroids and has not had problems with oral steroids in the past. Discharge plan agreeable with patient and all questions answered to his satisfaction. [JW] ED Course User Index [JW] William Garcias DO Clinical Impression Community acquired pneumonia of right lower lobe of lung (Primary) COPD (chronic obstructive pulmonary disease) ([facility]) Disposition: Discharge William Garcias DO 04/05/20 1222 William Garcias DO 04/05/20 1224 * Sil Rangel RN - 04/05/2020 10:22 AM CDT Ambulatory to ED with c/o worsening COPD since about 0500. Denies chest pain c/o headache states that's my fault , I took a nitro at home asked if was having chest pain then pt states no, just thought my pulse rate was high . Has had thick yellow productive cough. documented in this encounter Plan of Treatment Not on file documented as of this encounter Procedures Procedure Name Priority Date/Time Associated Diagnosis Comments XR CHEST PA+LAT STAT 04/05/2020 11:42 AM CDT PRO-BRAIN NATRIURETIC PEPTIDE STAT 04/05/2020 11:28 AM CDT COMPREHENSIVE METABOLIC PANEL STAT 04/05/2020 11:28 AM CDT D-DIMER, QUANTITATIVE STAT 04/05/2020 11:28 AM CDT BLOOD GAS, ARTERIAL LAB STAT 04/05/2020 11:28 AM CDT CBC W/DIFF AUTOMATED STAT 04/05/2020 11:28 AM CDT TROPONIN, QUANT STAT 04/05/2020 11:28 AM CDT documented in this encounter Results * XR CHEST PA+LAT (04/05/2020 11:42 AM CDT) Anatomical Region Laterality Modality Chest Radiographic Carmella ging 04/05/2020 11:4 4 AM CDT Impressions 04/05/2020 11:45 AM CDT IMPRESSION: ======== 1. ??Developing right lower lobe infiltrate posteriorly. ??Follow-up to resolution recommended. Interpreted By: Omar Lock MD, 04/05/2020 11:44 AM Narrative 04/05/2020 11:45 AM CDT Examination: Chest x-ray 2 view Exam Date/Time: 04/05/2020 11:42 AM Reason For Exam: ??Dyspnea at rest ?? Increasing shortness of breath today. ??COPD Comparison: Chest radiograph 12/28/2018 Technique: PA and lateral views of the chest were obtained. Findings: Developing infiltrate in the right lower lobe posteriorly. ??Remainder of lungs grossly clear. ??No pleural effusion or pneumothorax. ??No consolidation. ??Heart size normal. ??Pulmonary vasculature within normal limits. ??Minimal degenerative changes in the shoulders. ======== Procedure Note Omar Lock MD - 04/05/2020 Examination: Chest x-ray 2 view Exam Date/Time: 04/05/2020 11:42 AM Reason For Exam: Dyspnea at rest Increasing shortness of breath today. COPD Comparison: Chest radiograph 12/28/2018 Technique: PA and lateral views of the chest were obtained. Findings: Developing infiltrate in the right lower lobe posteriorly.Remainder of lungs grossly clear. No pleural effusion or pneumothorax.No consolidation. Heart size normal. Pulmonary vasculature within normallimits. Minimal degenerative changes in the shoulders. ======== IMPRESSION: ======== 1. Developing right lower lobe infiltrate posteriorly. Follow-up toresolution recommended. Interpreted By: Omar Lock MD, 04/05/2020 11:44 AM William Garcias DO GENERAL IMAGING Final Result * PRO-BRAIN NATRIURETIC PEPTIDE (04/05/2020 11:28 AM CDT) PRO-B TYPE NATRIURETIC PEPTIDE 39 <125 PG/ML 04/05/2020 11:59 AM CDT [facility] Comment: CUT POINTS ESTABLISHED BY INTERNATIONAL [...] OF 89% AND 72% FOR ACUTE CHF. 04/05/2020 11:2 8 AM CDT us William Garcias DO LABORATORY Final Result Performing Organization Address City/[facility] Co de Phone Number [facility] [address] [place] [address], [place] [phone] * TROPONIN, QUANT (04/05/2020 11:28 AM CDT) TROPONIN I <0.017 0.000 - 0.056 ng/mL. 04/05/2020 12:01 PM CDT [facility] Comment: ALTHOUGH VALUES OVER 0.056 ARE CONSIDERED ABNORMAL AND REPRESENT MYOCARDIAL DAMAGE,A CUTOFF OF 0.600 HAS BEEN RECOMMENDED REPRESENTING ACUTE MYOCARDIAL INFARCTION. 04/05/2020 11:2 8 AM CDT us William Garcias DO LABORATORY Final Result Performing Organization Address [facility] Co de Phone Number [facility] [address] [place] [address], [place] [phone] * D-DIMER, QUANTITATIVE (04/05/2020 11:28 AM CDT) D-DIMER 414 <501 ng{FEU}/mL 04/05/2020 11:44 AM CDT [facility] Comment: A D DIMER RESULT LESS THAN OR EQUAL TO 500 NG/ML FEU HAS A NEGATIVE PREDICTIVE VALUE GREATER THAN 96% FOR THE EXCLUSION OF ACUTE PULMONARY EMBOLISM OR DEEP VEIN THROMBOSIS WHEN THERE IS LOW TO MODERATE PRETEST PROBABILITY. 04/05/2020 11:2 8 AM CDT us William Garcias DO LABORATORY Final Result [facility] [address] [place] [address], * (ABNORMAL) COMPREHENSIVE METABOLIC PANEL (04/05/2020 11:28 AM CDT) SODIUM S/P/B 135(L) 136 - 145 MMOL/L 04/05/2020 11:59 AM CDT [facility] POTASSIUM S/P/B 4.1 3.5 - 5.1 MMOL/L 04/05/2020 11:59 AM CDT [facility] CHLORIDE S/P/B 102 98 - 107 MMOL/L 04/05/2020 11:59 AM CDT [facility] CO2 26.9 21.0 - 32.0 MMOL/L 04/05/2020 11:59 AM CDT [facility] GLUCOSE 110(H) 70 - 99 MG/DL 04/05/2020 11:59 AM CDT [facility] Comment: FASTING GLUCOSE 100 TO 125 MG/DL IS CONSISTENT WITH IMPAIRED FASTING GLUCOSE. FASTING GLUCOSE >125 MG/DL IS CONSISTENT WITH DIABETES. RANDOM GLUCOSE >200 MG/DL WITH HYPERGLYCEMIC SYMPTOMS IS CONSISTENT WITH DIABETES. PER ADA GUIDELINES BUN 18 6 - 24 MG/DL 04/05/2020 11:59 AM CDT [facility] CREATININE S/P/B 1.15 0.70 - 1.30 MG/DL 04/05/2020 11:59 AM CDT [facility] CALCIUM S/P/B 8.6 8.4 - 10.5 MG/DL 04/05/2020 11:59 AM CDT [facility] BILIRUBIN TOTAL S/P/B 0.8 0.2 - 1.0 MG/DL 04/05/2020 11:59 AM CDT [facility] Comment: THIS ASSAY IS NOT RECOMMENDED FOR PATIENTS UNDERGOING TREATMENT WITH ELTROMBOPAG DUE TO THE POTENTIAL FOR FALSELY ELEVATED RESULTS. ALKALINE PHOSPHATASE S/P/B 83 45 - 115 U/L 04/05/2020 11:59 AM CDT [facility] AST 26 15 - 37 U/L 04/05/2020 11:59 AM CDT [facility] ALT 62 16 - 63 U/L 04/05/2020 11:59 AM CDT [facility] TOTAL PROTEIN S/P/B 7.2 6.4 - 8.2 G/DL 04/05/2020 11:59 AM CDT [facility] ALBUMIN S/P/B 3.6 3.4 - 5.0 G/DL 04/05/2020 11:59 AM CDT [facility] ANION GAP 6.1 5.0 - 15.0 MMOL/L 04/05/2020 11:59 AM CDT [facility] OSMOLALITY (CALC) 283 MOSM/KG 020 11:59 AM CDT [facility] Comment:REFERENCE RANGE NOT ESTABLISHED EGFR NON-AFR. AMER. 74(L) >89 ML/MIN/1. 73 M2 04/05/2020 11:59 AM CDT [facility] EGFR AFR. AMER. 86(L) >89 ML/MIN/1. 73 M2 04/05/2020 11:59 AM CDT [facility] GFR NOTES GFR REFERENCE S: 04/05/2020 11:59 AM CDT [facility] Comment: THE ESTIMATED GFR IS [...] ml/min/1.73 m2 G5,KIDNEY FAILURE: <15 ml/min/1.73 m2 04/05/2020 11:2 8 AM CDT us William Garcias DO LABORATORY Final Result [facility] [address] [place] [address], * (ABNORMAL) CBC W/DIFF AUTOMATED (04/05/2020 11:28 AM CDT) WBC 18.8(H) 4.5 - 10.8 x10'3/uL 04/05/2020 11:37 AM CDT [facility] RBC 4.82 4.50 - 6.10 x10'6/uL 04/05/2020 11:37 AM CDT [facility] HGB 15.2 13.0 - 18.0 G/DL 04/05/2020 11:37 AM CDT [facility] HCT 44.0 37.0 - 52.0 % 04/05/2020 11:37 AM CDT [facility] MCV 91.3 78.0 - 100.0 FL 04/05/2020 11:37 AM CDT [facility] MCH 31.5(H) 27.0 - 31.0 PG 04/05/2020 11:37 AM CDT [facility] MCHC 34.5 33.0 - 36.0 G/DL 04/05/2020 11:37 AM CDT [facility] RDW 13.2 11.5 - 14.5 % 04/05/2020 11:37 AM CDT [facility] PLT 206 150 - 350 x10'3/uL 04/05/2020 11:37 AM CDT [facility] MPV 10.1 7.4 - 10.4 FL 04/05/2020 11:37 AM CDT [facility] DIFFERENTIAL COMMENT NORMAL REFERENCE RANGE NOT ESTABLISHED FOR THE PROPORTIONAL LEUKOCYTE DIFFERENTIAL. 04/05/2020 11:37 AM CDT [facility] SEG NEUTROPHILS 83.0 % 0 11:37 AM CDT [facility] LYMPHOCYTES 11.0 % 04/05/2020 11:37 AM CDT [facility] MONOCYTES 5.2 % 04/05/2020 11:37 AM CDT [facility] EOSINOPHILS 0.1 % 04/05/2020 11:37 AM CDT [facility] BASOPHILS 0.2 % 04/05/2020 11:37 AM CDT [facility] IMMATURE GRANS % 0.5 % 04/05/20 20 11:37 AM CDT [facility] NRBC 0.0 % 04/05/2020 11:37 AM CDT [facility] ABS. NEUTROPHILS 15.59(H) 1.60 - 8.30 x10'3/uL 04/05/2020 11:37 AM CDT [facility] ABS. LYMPHOCYTES 2.06 0.80 - 4.70 x10'3/uL 04/05/2020 11:37 AM CDT [facility] ABS. MONOCYTES 0.98 0.00 - 1.50 x10'3/uL 04/05/2020 11:37 AM CDT [facility] ABS. EOSINOPHILS 0.02 0.00 - 0.40 x10'3/uL 04/05/2020 11:37 AM CDT [facility] ABS. BASOPHILS 0.03 0.00 - 0.20 x10'3/uL 04/05/2020 11:37 AM CDT [facility] ABS. IMMATURE GRANULOCYTES 0.09(H) 0.00 - 0.03 x10'3/uL 04/05/2020 11:37 AM CDT [facility] ABS. NUCLEATED RBC'S 0.00 0.00 x10'3/uL 04/05/2020 11:37 AM CDT [facility] 04/05/2020 11:2 8 AM CDT William Garcias DO LABORATORY Final Result [facility] [address] [place] [address], * (ABNORMAL) ARTERIAL BLOOD GAS (04/05/2020 11:28 AM CDT) O2 SATURATION 96 95 - 100 % 04/05/2020 11:38 AM CDT [facility] PH ARTERIAL 7.40 7.35 - 7.45 04/05/2020 11:38 AM CDT [facility] PCO2 39.3 34.0 - 45.0 MMHG 04/05/2020 11:38 AM CDT [facility] PO2 90.0 80.0 - 95.0 MMHG 04/05/2020 11:38 AM CDT [facility] BASE DEFICIT 0.3 MMOL/L 04/05/2020 11:38 AM CDT [facility] BICARB ARTERIAL 23.8(H) 18.0 - 23.0 MMOL/L 04/05/2020 11:38 AM CDT [facility] TCO2 25.0(H) 18.0 - 23.0 MMOL/L 04/05/2020 11:38 AM CDT [facility] LITER FLOW 2 04/05/2020 11:33 AM CDT [facility] BRENT TEST N/A 04/05/2020 11:33 AM CDT [facility] DRAW SITE LT BRACH 04/05/2020 11:33 AM CDT [facility] 04/05/2020 11:2 8 AM CDT us William Garcias DO LABORATORY Final Result [facility] [address] [place] [place] [address], documented in this encounter Visit Diagnoses Diagnosis Community acquired pneumonia of right lower lobe of lung- Primary COPD (chronic obstructive pulmonary disease) ([facility]) Chronic airway obstruction, not elsewhere classified documented in this encounter Administered Medications Inactive Administered Medications - up to 3 most recent administrations Medication Order MAR Action Action Date Dose Rate Site ipratropium-albuterol (COMBIVENT RESPIMAT) 20-100 MCG/ACT inhaler 1 puff 1 puff, Inhalation, 4 times daily, First dose on 04/05/20 at 1100, Until Discontinued, Shake Well. Prime inhaler prior to first use. Given 04/05/2020 11:06 AM CDT 1 puff documented in this encounter Active and Recently Administered Medications Times are shown in CDT. Scheduled Medication Order 04/03/2020 04/04/2020 04/05/2020 ipratropium-albuterol (COMBIVENT RESPIMAT) 20-100 MCG/ACT inhaler 1 puff 1 puff, Inhalation, 4 times daily, First dose on 04/05/20 at 1100, Until Discontinued, Shake Well. Prime inhaler prior to first use. 1106 (Given - Provid er: Ca Oliva, BUTTON PUNCHER) documented in this encounter Care Teams Tensioning Machine Operator Relationship Specialty Start Date End Date Doc Jiang MD [address] [place] [phone] PCP - General FAMILY PRACTICE 03/21/20 documented as of this encounter
--- OUTSIDE RECORDS SUMMARY | 2024-09-27 10:37 | XMS_ITS | Encounter Summary ---
Author Organization [facility] Address [facility] [facility] [place], [place] [id number] [place] [id number] Care Team Providers Care Insurance Executive Name Role Phone Unavailable Primary Care Provider Unavailabl e Encounter Details Date Type Department Care Team (Late st Contact Info) Description 08/11/2016 Abstract [facility] [address] [place] [address] Marilyn Adame, COMMUNICATIONS SYSTEMS ENGINEER- [address] [place] [address] Social History Tobacco Use Types Packs/Day Years Used Date Smoking Tobacco: Never Assessed Sex and Gender Information Value Date Recorded Sex Assigned at Not on file 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
--- OUTSIDE RECORDS SUMMARY | 2024-09-27 10:37 | XMS_ITS | Encounter Summary ---
Author Organization [facility] Address [facility]. [place], [place] [id number] [place] [address] Care Team Providers Care Behavioral Assistant Name Role Phone Ismael Mendez MD Primary Care Provider [phone] Reason for Referral * Procedure (Routine) - Closed Specialty Diagnoses / Procedures Referred By Contac t Referred To Contact Diagnoses Shortness of breath Procedures Complete PFT (pre/post [place], Lung Vol, Diff Capacity) (62204, 94776, 55995, 31543) Ismael Mendez MD [address] [place], [place] [id number] Phone: tel: fax: [facility] Parent Location [address] [place] [address] Phone: tel: fax: Referral ID Status Reason Start Date Expiration Date Visits Re quested Visits Authorized [id number] Closed 07/16/2019 08/15/2020 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 Reason for Visit * Procedure (Routine) - Closed Specialty Diagnoses / Procedures Referred By Contac t Referred To Contact Diagnoses Shortness of breath Procedures Complete PFT (pre/post [place], Lung Vol, Diff Capacity) (49124, 69358, 85142, 55288) Ismael Mendez MD [address] [place] [address] Phone: tel: fax: [facility] Parent Location [address] [place] [address] Phone: tel: fax: Referral ID Status Reason Start Date Expiration Date Visits Re quested Visits Authorized [id number] Closed 07/16/2019 08/15/2020 1 1 Encounter Details Date Type Department Care Team (Latest Contact Info) Description 08/08/2019 2:49 PM LAP MACHINE TENDER - 08/08/2019 11:59 PM LAP MACHINE TENDER Hospital Encounter [facility] [place] [address] Ismael Mendez MD [address] [place], [place] [phone] Discharge Disposition: Home or Self Care (Routine Discharge) Social History Tobacco Use Types Packs/Day Years Used Date Smoking Tobacco: Never Assessed Sex and Gender Information Value Date Recorded Sex Assigned at Not on file 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 Gender Identity Not on file Sexual Orientation Not on file documented as of this encounter Last Filed Vital Signs Vital Sign Reading Time Taken Comments Blood Pressure - - Pulse - - Temperature - - Respiratory Rate - - Oxygen Saturation - - Inhaled Oxygen Concentration - - Weight 109.8 kg (242 lb) 08/08/2019 1:19 PM LAP MACHINE TENDER Height - - Body Mass Index 35.74 08/11/2016 12:12 PM LAP MACHINE TENDER documented in this encounter Progress Notes * Mela Lindquist CRT - 08/08/2019 5:12 PM CST 08/08/19 1400 Home oxygen evaluation date and time Date of Evaluation 08/08/19 Evaluation Time 1400 Resting Oxygen Saturation Resting Saturation off Oxygen 92 % Exercise Oxygen Saturation Exercise Oxygen Setting 0 Liters/Minute Exercise Saturation off Oxygen 89 % Distance Walked 720 feet Home Oxygen Evaluation Comment Oxygen Evaluation Comment Patient was walked on room air for 6 minutes. Low sat of 89% for approximately 1 minute. Sats returned to 90 to 92% for the last half of the wallk. Did not drop again. Home Oxygen Evaluation Charge $ Home Oxygen Evaluation Charge Yes MACHINE TENDER * Mela Lindquist CRT - 08/08/2019 5:09 PM CST 08/08/19 1400 Home oxygen evaluation date and time Date of Evaluation 08/08/19 Evaluation Time 1400 Resting Oxygen Saturation Resting Saturation off Oxygen 92 % Exercise Oxygen Saturation Exercise Oxygen Setting 0 Liters/Minute Exercise Saturation off Oxygen 89 % Distance Walked 720 feet Home Oxygen Evaluation Comment Oxygen Evaluation Comment Patient was walked on room air for 6 minutes. Low sat of 89% for approximately 1 minute. Sats returned to 90 to 92% for the last half of the wallk. Did not drop again. Home Oxygen Evaluation Charge $ Home Oxygen Evaluation Charge Yes MACHINE TENDER documented in this encounter Plan of Treatment Not on file documented as of this encounter Procedures Procedure Name Priority Date/Time Associated Diagnosis Comments PULMONARY FUNCTION TEST Routine 08/09/2019 11:28 AM LAP MACHINE TENDER Shortness of breath documented in this encounter Results * Complete PFT (pre/post Jakub, Lung Vol, Diff Capacity) (61359, 49321, 68425, 72238) (08/09/2019 11:28 AM LAP MACHINE TENDER) 08/09/2019 11:2 8 AM LAP MACHINE TENDER Narrative ESCRIPTION - 08/09/2019 2:49 PM LAP MACHINE TENDER Scott Sanchez is 48-year-old male, 69 inches [...] Clinical correlation required. D: ??08/09/2019 11:28 AM #[id number] T: ??08/09/2019 01:05 PM /NTS Ismael Mendez MD PFT ORDERABLES Final Result ESCRIPTION documented in this encounter Visit Diagnoses Diagnosis Dyspnea- Primary Other dyspnea and respiratory abnormality Shortness of breath documented in this encounter Administered Medications Inactive Administered Medications - up to 3 most recent administrations Medication Order MAR Action Action Date Dose Rate Site albuterol (PROVENTIL) (2.5 MG/3ML) 0.083% nebulizer solution 2.5 mg 2.5 mg, Nebulization, Once, 1 dose, On Saba 08/08/19 at 1515Indications:Dyspnea Given 08/08/2019 3:38 PM LAP MACHINE TENDER 2.5 mg documented in this encounter Care Teams Behavioral Assistant Relationship Specialty Start Date End Date Ismael Mendez MD [address] [place] [phone] PCP - General PULMONARY DISEASE 08/07/19 03/20/20 documented as of this encounter
--- OUTSIDE RECORDS SUMMARY | 2024-09-27 10:37 | XMS_ITS | Encounter Summary ---
Author Organization [facility] Address [facility]. [place], [place] [address] [place] [address] Care Team Providers Care Pile Driving Technician Name Role Phone Unavailable Primary Care Provider Unavailabl e Encounter Details Date Type Department Care Team (Late st Contact Info) Description 08/17/2016 Abstract [facility] [address] [place] [address] Marilyn Adame, RESERVATIONS CLERK- [address] [facility] [address] Social History Tobacco Use Types Packs/Day Years Used Date Smoking Tobacco: Never Assessed Sex and Gender Information Value Date Recorded Sex Assigned at Not on file 

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
--- OUTSIDE RECORDS SUMMARY | 2024-09-27 10:37 | XMS_ITS | Encounter Summary ---
Author Organization [facility] Address [address] [place] [address]. 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
--- OUTSIDE RECORDS SUMMARY | 2024-09-27 10:37 | XMS_ITS | Encounter Summary ---
Author Organization [facility] Address [address] 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 History of Present Illness HPI: Patient returns to clinic for follow up RIGHT ankle injury. He states he is doing better but still having a lot of pain. He came into clinic with crutches and non-weight bearing with posterior short leg splint in good condition. He has been keeping it iced and elevated since his last visit. Hehas been taking [place] for pain. He denies any numbness or tingling. PREVIOUS HISTORY 08-11-16 Patient comes to clinic today with complaints of RIGHT ankle pain. He reports he stepped into a pot hole and fell forward and put his foot out to catch himself and his anklerolled inward. THis occurred on 08-09-2016. HE had pain and swelling. He is walking with crutches today. He denies tingling or numbness. He has been using [place] for pain. He also uses Meloxicam. He was treated in the ER and subsequently referred to my office. Review of Systems See HPI for pertinent positives. Active Problems 1. Closed nondisplaced fracture of medial malleolus of right tibia, initial encounter (824.0) (S82.54XA) 2. Closed nondisplaced fracture of medial malleolus of right tibia, sequela (824.0) (S82.54XS) Past Medical History 1. History of Broken bones (829.0) (T14.8) 2. History of CAD (coronary artery disease) (414.00) (I25.10) 3. History of arthritis (V13.4) (Z87.39) 4. History of asthma (V12.69) (Z87.09) 5. History of hypertension (V12.59) (Z86.79) Surgical History 1. History of Back Surgery 2. History of Heart Surgery 3. History of Knee Surgery Family History Mother 1. Family history of lung disease (V19.8) (Z83.6) 2. Family history of Heart problem Father 3. Family history of Heart problem Family History 4. Family history of CAD (coronary artery disease) 5. Family history of hypertension (V17.49) (Z82.49) 6. Family history of malignant neoplasm (V16.9) (Z80.9) Social History ?? Alcohol consumption one to two days per week (V49.89) (Z78.9) ?? Four children ?? Lives with relatives ? Smokes cigarettes (305.1) (F17.210) Current Meds 1. Atorvastatin Calcium 80 MG Oral Tablet; Therapy: 12Jan2015 to Recorded 2. Carvedilol 12.5 MG Oral Tablet; Therapy: 12Jan2015 to Recorded 3. Cephalexin 500 MG Oral Capsule; Therapy: 03Mar2015 to Recorded 4. Ciprofloxacin HCl - 500 MG Oral Tablet; Therapy: 24Aqa7419 to Recorded 5. Cyclobenzaprine HCl - 10 MG Oral Tablet; Therapy: 09Qlp4572 to Recorded 6. Effient 10 MG Oral Tablet; Therapy: 59Sgk4741 to Recorded 7. Hydrocodone-Acetaminophen 5-325 MG Oral Tablet; Therapy: 89Hyi1723 to Recorded 8. Hydrocodone-Acetaminophen 7.5-325 MG Oral Tablet; 1- 2 Q 4 - 6 HRS PRN PAIN; Therapy: 11Aug2016 to (Last Rx:11Aug2016) Ordered 9. Lisinopril 10 MG Oral Tablet; Therapy: 27Hbd6569 to Recorded 10. Lisinopril 5 MG Oral Tablet; Therapy: 12Jan2015 to Recorded 11. MetroNIDAZOLE 500 MG Oral Tablet; Therapy: 10Sae1236 to Recorded 12. Nitrostat 0.4 MG Sublingual Tablet Sublingual (Nitroglycerin); Therapy: 12Jan2015 to Recorded Allergies 1. cortisone Physical Exam Constitutional: alert and in no acute distress. Neurological:. the patient was oriented to person, place, and time. mood and affect were appropriate. Eyes: pupils were equal in size, round, reactive to light, with normal accommodation. ENT: hearing was normal. Pulmonary: no respiratory distress. Skin: no injuries or skin lesions on the right lower extremity. Right Ankle: EXAM today reveals medial malleolus tenderness, mild swelling more medial than lateral(greatly improved), NVI, mild ecchymosis Results/Data XR Ankle 3+ View Rt 17Aug2016 05:03PM Paolo Perdomo Test Name Result Flag Reference XR Ankle 3+ View Rt (Report) [address] Patient Name: SCOTT SANCHEZ Date of : 1970 Med Rec #: [id number] Age/Sex: 45/M Pt. Location: ORTHO Attending Provider: JANEEN ADAME NP Ordering Provider: PAOLO PERDOMO MD (TRACY) Study Date Order Number Procedure 08/17/16 [id number] XR Ankle 3 or more Views Rt Signed Examination: Right ankle 3 views Exam time: 08/17/2016 Clinical history: Closed nondisplaced fracture of the medial malleolus of right tibia. Comparison: Outside x-ray from August 09, 2016 Technique: AP, ankle mortise, and lateral views of the right ankle were obtained. Findings: Nondisplaced intra-articular fracture in the medial malleolus at and above the level of talar dome , unchanged. No periosteal reaction. Old healed fracture of distal tibia shaft. No acute fracture of the fibula. Osteoarthritic changes in the tibiotalar joint. No dislocation. IMPRESSION: 1. Fracture, medial malleolus, unchanged, without evidence of healing at this time. Electronically Signed By: KELLIE STRICKLAND M.D 08/17/161705 Dictated On: 08/17/161702 Interpreted By: KELLIE STRICKLAND M.D Transcribed On: 08/17/161702 - INFCE Views: of the right ankle. XRAY today reveals stable alignment of medial malleolus fracture withoutsigns of healing. Findings: Procedure Procedure: Cast application of the right lower leg. Material: 4 inch fiberglass and 2 rolls over Webril and over a polyester stockinette. Type: short leg non-weight bearing cast with the ankle at 90 degrees. Patient Status: neurovascular exam after splint/cast application was unchanged. Skin Assessment: swelling (mild). Activity Restrictions: The patient is advised to use two crutches, to not bear weight and to avoid getting the splint/cast wet. The patient was instructed to follow up in 4 weeks. Assessment 1. Closed nondisplaced fracture of medial malleolus of right tibia, sequela (824.0) (S82.54XS) Plan Closed nondisplaced fracture of medial malleolus of right tibia, initial encounter 1. Hydrocodone-Acetaminophen 7.5-325 MG Oral Tablet ([place]); 1- 2 Q 4 - 6 HRS PRN PAIN Closed nondisplaced fracture of medial malleolus of right tibia, sequela 2. Call if: You have any problems with your cast.; Status:Complete; Done: 21Aug2016 07:06PM 3. Avoid walking on your cast until we notify you.; Status:Complete; Done: 21Aug2016 07:06PM 4. Continue with our present treatment plan.; Status:Complete; Done: 21Aug2016 07:06PM 5. We have given you a fiberglass cast.; Status:Complete; Done: 21Aug2016 07:06PM 6. You need to quit smoking.; Status:Complete; Done: 21Aug2016 07:07PM 7. XR Ankle 3+ View Rt; Status:Resulted - Requires Verification; Done: 17Aug2016 05:03PM Applied short leg cast with non-weight bearing using crutches. He will follow up in 4 weeks for cast removal. Signatures Electronically signed by : KAYLI Cox; Aug 21 2016 7:11PM WOOLING MACHINE OPERATOR (Author) documented in this encounter Plan of Treatment Not on file documented as of this encounter Procedures Procedure Name Priority Date/Time Associated Diagnosis Comments XR ANKLE STANDING RT 3V Routine 08/17/2016 5:03 PM WOOLING MACHINE OPERATOR documented in this encounter Results * XR ANKLE STANDING RT 3V (08/17/2016 5:03 PM WOOLING MACHINE OPERATOR) Anatomical Region Laterality Modality Ankle Radiographic Carmella ging 08/17/2016 5:03 PM WOOLING MACHINE OPERATOR 08/17/2016 5:03 PM WOOLING MACHINE OPERATOR Narrative 08/17/2016 5:09 PM WOOLING MACHINE OPERATOR [facility] ?? [facility], [facility] ?? [place], [place] ? Patient Name: SCOTT SANCHEZ Date of : 1970 ?? [facility] Rec #: [id number] ??Age/Sex: 45/M ?Pt. Location: ORTHO ?? Attending Provider: JANEEN ADAME NP ?? Ordering Provider: PAOLO PERDOMO MD (TRACY) ? Study Date Order Number Procedure ?? 08/17/16 [id number] XR Ankle 3 or more Views Rt ? Signed ? Examination: Right ankle 3 views ? Exam time: 08/17/2016 ? Clinical history: Closed nondisplaced fracture of the medial malleolus of right tibia. ? Comparison: Outside x-ray from August 09, 2016 ? Technique: AP, ankle mortise, and lateral views of the right ankle were obtained. ? Findings: ?? Nondisplaced intra-articular fracture in the medial malleolus at and above the level of talar dome , unchanged. No periosteal reaction. Old healed fracture of distal tibia shaft. No acute fracture of the fibula. Osteoarthritic changes in the tibiotalar joint. No dislocation. ? IMPRESSION: ? 1. Fracture, medial malleolus, unchanged, without evidence of healing at this time. ? Electronically Signed By: KELLIE STRICKLAND M.D 08/17/161705 ? Dictated On: 08/17/161702 ?? Interpreted By: KELLIE STRICKLAND M.D ?? Transcribed On: 08/17/161702 - INFCE ?? Procedure Note Anamaria Sanchez MD - 07/19/[address] Patient Name: SCOTT SANCHEZ Date of : 1970 Med Rec #: [id number] Age/Sex: 45/M Pt. Location: ORTHO Attending Provider: JANEEN ADAME NP Ordering Provider: PAOLO PERDOMO MD (TRACY) Study Date Order Number Procedure 08/17/16 [id number] XR Ankle 3 or more Views Rt Signed Examination: Right ankle 3 views Exam time: 08/17/2016 Clinical history: Closed nondisplaced fracture of the medial malleolus ofright tibia. Comparison: Outside x-ray from August 09, 2016 Technique: AP, ankle mortise, and lateral views of the right ankle wereobtained. Findings: Nondisplaced intra-articular fracture in the medial malleolus at andabove the level of talar dome , unchanged. No periosteal reaction. Old healed fracture of distal tibiashaft. No acute fracture of the fibula. Osteoarthritic changes in the tibiotalar joint. Nodislocation. IMPRESSION: 1. Fracture, medial malleolus, unchanged, without evidence of healing atthis time. Electronically Signed By: KELLIE STRICKLAND M.D 08/17/161705 Dictated On: 08/17/161702 Interpreted By: KELLIE STRICKLAND M.D Transcribed On: 08/17/161702 - CONNIE us Paolo Perdomo MD GENERAL IMAGING Final Result documented in this encounter Visit Diagnoses Not on filedocumented in this encounter
--- OUTSIDE RECORDS SUMMARY | 2024-09-27 10:37 | XMS_ITS | Encounter Summary ---
Author Organization [facility] Address [address] 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 History of Present Illness HPI: Patient returns to clinic today in follow up for his RIGHT ankle injury. He is using crutches for ambulation and has tried to remain non weight bearing. PREVIOUS HISTORY 08-17-2016 Patient returns to clinic for follow up RIGHT ankle injury. He states he is doing better but still having a lot of pain. He came into clinic with crutches and non-weight bearing with posterior short leg splint in good condition. He has been keeping it iced and elevated since his last visit. He has been taking [place] for pain. He denies any numbness or tingling. PREVIOUS HISTORY 11-17-16 Patient comes to clinic today with complaints of RIGHT ankle pain. He reports he stepped into a pot hole and fell forward and put his foot out to catch himself and his anklerolled inward. THis occurred on 08-09-2016. HE had pain and swelling. He is walking with crutches today. He denies tingling or numbness. He has been using [place] for pain. He also uses Meloxicam. He [...] Smokes cigarettes (305.1) (F17.210) Current Meds 1. Acetaminophen-Codeine #3 300-30 MG Oral Tablet; TK 1 T PO Q 4 HOURS PRF PAIN; Therapy: 66Qcf8660 to Recorded 2. Atorvastatin Calcium 80 MG Oral Tablet; Therapy: 04Gof2140 to Recorded 3. Butrans 10 MCG/HR Transdermal Patch Weekly; APPLY ONE PATCH ONCE WEEKLY; Therapy: 66Qmo7393 to Recorded 4. Butrans 15 MCG/HR Transdermal Patch Weekly; JOEL ONE PATCH EACH WEEK; Therapy: 04Aug2016 to Recorded 5. Butrans 5 MCG/HR Transdermal Patch Weekly; APPLY ONE PATCH TOPICALLY WEEKLY; Therapy: 09Soh5595 to Recorded 6. Carvedilol 12.5 MG Oral Tablet; Therapy: 13Puv7543 to Recorded 7. Cephalexin 500 MG Oral Capsule; Therapy: 03Mar2015 to Recorded 8. Ciprofloxacin HCl - 500 MG Oral Tablet; Therapy: 42Nxy8552 to Recorded 9. Cyclobenzaprine HCl - 10 MG Oral Tablet; Therapy: 30Syy9268 to Recorded 10. Effient 10 MG Oral Tablet; Therapy: 22Ugw9473 to Recorded 11. Hydrocodone-Acetaminophen 5-325 MG Oral Tablet; Therapy: 50Tey8938 to Recorded 12. Hydrocodone-Acetaminophen 7.5-325 MG Oral Tablet ([place]); 1- 2 Q 4 - 6 HRS PRN PAIN; Therapy: 11Aug2016 to (Last Rx:17Aug2016) Ordered 13. Lisinopril 10 MG Oral Tablet; Therapy: 02Hdp5475 to Recorded 14. Lisinopril 5 MG Oral Tablet; Therapy: 30Dpc5637 to Recorded 15. MetroNIDAZOLE 500 MG Oral Tablet; Therapy: 22Gdy1404 to Recorded 16. Nitrostat 0.4 MG Sublingual Tablet Sublingual (Nitroglycerin); [...] lower extremity. Right Ankle: EXAM today reveals NVI, mild edema, stiff range of motion, no tenderness Results/Data XR Ankle 3+ View Rt 16Ixm7308 03:00PM Paolo Perdomo Test Name Result Flag Reference XR Ankle 3+ View Rt (Report) [address] Patient Name: SCOTT SANCHEZ Date of : 1970 Med Rec #: [id number] Age/Sex: 45/M Pt. Location: ORTHO Attending Provider: PAOLO PERDOMO MD (TRACY) Ordering Provider: PAOLO PERDOMO MD (TRACY) Study Date Order Number Procedure 09/14/16 [id number] XR Ankle 3 or more Views Rt Signed 09/14/2016, 1427 hours. HISTORY: Cast removal. Follow-up fracture. 824.0, S82.54XS EXAM: AP, lateral and oblique views of the right ankle with correlation to study 08/17/2016. FINDINGS: Post fracture deformity of the right tibia. Deformity of healed oblique fracture distal diaphysis right tibia about 7.6 cm proximal to the ankle mortise. There also is a longitudinal cleft in the medial aspect of the dome of the talus in the transverse cleft in the medial malleolus of the tibia suggesting subacute fracture deformity similar in appearance compared to the previous study. Osteoarthritic changes are present in the tibiotalar joint with slight narrowing of the medial aspect of the joint. Tiny marginal spurring from the anterior aspect of the joint at the tibiotalar joint. Minimal bowing in the distal diaphysis of the right fibula which may indicate an old healed fracture. IMPRESSION: The 40s of healed and/or healing fractures distal right tibia similar to study 08/17/2016. Intimal bowing of the distal diaphysis of the right fibula. Mild early osteoarthritis tibiotalar joint. Electronically Signed By: STEPHANIE SPRINGER MD 09/14/16 1504 Dictated On: 09/14/16 1500 Interpreted By: STEPHANIE SPRINGER MD Transcribed On: 09/14/16 1500 - INFCE XRAYS Today of her RIGHT ankle reveals progressive healing distal tibia Findings: Procedure Procedure: Cast removal (cast applied here) of the right ankle. Material: fiberglass. Cast/Splint: cracked/broken. Assessment 1. Closed nondisplaced fracture of medial malleolus of right tibia, sequela (824.0) (S82.54XS) Plan Closed nondisplaced fracture of medial malleolus of right tibia, sequela 1. Physical Therapy Referral Outpatient RIGHT medial malleolus fracture 08-09-16 for strengthening and ROM 3 times a week for 4 weeks Status: Need Information - Financial Authorization Requested for: [id number] 2. Continue with our present treatment plan.; Status:Complete; Done: 18Cjk8018 08:43AM 3. XR Ankle 3+ View Rt; Status:Complete; Done: 55Kjz9057 03:00PM I have provided him a stirrup brace and given him a script for PT. He'll return in 4 weeks. Signatures Electronically signed by : Paolo Perdomo M.D.; Sep 15 2016 8:43AM WOOD BARREL RECONDITIONER (Author) documented in this encounter Plan of Treatment Not on file documented as of this encounter Procedures Procedure Name Priority Date/Time Associated Diagnosis Comments XR ANKLE STANDING RT 3V Routine 09/14/2016 3:00 PM WOOD BARREL RECONDITIONER documented in this encounter Results * XR ANKLE STANDING RT 3V (09/14/2016 3:00 PM WOOD BARREL RECONDITIONER) Anatomical Region Laterality Modality Ankle Radiographic Carmella ging 09/14/2016 3:00 PM WOOD BARREL RECONDITIONER 09/14/2016 3:00 PM WOOD BARREL RECONDITIONER Narrative 09/14/2016 3:05 PM WOOD BARREL RECONDITIONER [facility] ?? [facility] ?? [place], [place] ? Patient Name: SCOTT SANCHEZ Date of : 1970 ?? [facility] Rec #: [id number] ??Age/Sex: 45/M ?Pt. Location: ORTHO ?? Attending Provider: PAOLO PERDOMO MD (TRACY) ?? Ordering Provider: PAOLO PERDOMO MD (TRACY) ? Study Date Order Number Procedure ?? 09/14/16 [id number] XR Ankle 3 or more Views Rt ? Signed ? 09/14/2016, 1427 hours. ? HISTORY: Cast removal. Follow-up fracture. 824.0, S82.54XS ? EXAM: AP, lateral and oblique views of the right ankle with correlation to study 08/17/2016. ? FINDINGS: Post fracture deformity of the right tibia. Deformity of healed oblique fracture distal diaphysis right tibia about 7.6 cm proximal to the ankle mortise. There also is a longitudinal cleft in the medial aspect of the dome of the talus in the transverse cleft in the medial malleolus of the tibia suggesting subacute fracture deformity similar in appearance compared to the previous study. Osteoarthritic changes are present in the tibiotalar joint with slight narrowing of the medial aspect of the joint. Tiny marginal spurring from the anterior aspect of the joint at the tibiotalar joint. Minimal bowing in the distal diaphysis of the right fibula which may indicate an old healed fracture. ? IMPRESSION: ?? The 40s of healed and/or healing fractures distal right tibia similar to study 08/17/2016. Intimal bowing of the distal diaphysis of the right fibula. Mild early osteoarthritis tibiotalar joint. ? Electronically Signed By: STEPHANIE SPRINGER MD 09/14/16 1504 ? Dictated On: 09/14/16 1500 ?? Interpreted By: STEPHANIE SPRINGER MD ?? Transcribed On: 09/14/16 1500 - INFCE ?? Procedure Note Anamaria Sanchez MD - 07/18/[address] Patient Name: SCOTT SANCHEZ Date of : 1970 Med Rec #: [id number] Age/Sex: 45/M Pt. Location: ORTHO Attending Provider: PAOLO PERDOMO MD (TRACY) Ordering Provider: PAOLO PERDOMO MD (TRACY) Study Date Order Number Procedure 09/14/16 [id number] XR Ankle 3 or more Views Rt Signed 09/14/2016, 1427 hours. HISTORY: Cast removal. Follow-up fracture. 824.0, S82.54XS EXAM: AP, lateral and oblique views of the right ankle with correlationto study 08/17/2016. FINDINGS: Post fracture deformity of the right tibia. Deformity of healedoblique fracture distal diaphysis right tibia about 7.6 cm proximal to the ankle mortise. Therealso is a longitudinal cleft in the medial aspect of the dome of the talus in the transversecleft in the medial malleolus of the tibia suggesting subacute fracture deformity similar in appearancecompared to the previous study. Osteoarthritic changes are present in the tibiotalar joint withslight narrowing of the medial aspect of the joint. Tiny marginal spurring from the anterioraspect of the joint at the tibiotalar joint. Minimal bowing in the distal diaphysis of the rightfibula which may indicate an old healed fracture. IMPRESSION: The 40s of healed and/or healing fractures distal right tibia similar tostudy 08/17/2016. Intimal bowing of the distal diaphysis of the right fibula. Mild earlyosteoarthritis tibiotalar joint. Electronically Signed By: STEPHANIE SPRINGER MD 09/14/16 1504 Dictated On: 09/14/16 1500 Interpreted By: STEPHANIE SPRINGER MD Transcribed On: 09/14/16 1500 - INFCE us Paolo Perdomo MD GENERAL IMAGING Final Result documented in this encounter Visit Diagnoses Not on filedocumented in this encounter
--- OUTSIDE RECORDS SUMMARY | 2024-09-27 10:37 | XMS_ITS | Encounter Summary ---
Author Organization [facility] Address [facility] [facility] 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
--- OUTSIDE RECORDS SUMMARY | 2024-09-27 10:37 | XMS_ITS | Encounter Summary ---
Author Organization [facility] Address [facility] 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 Gender Identity Not on file Sexual Orientation Not on file documented as of this encounter Plan of Treatment Not on file documented as of this encounter Visit Diagnoses Not on filedocumented in this encounter Care Teams Partner Relationship Specialty Start Date End Date Ismael Mendez MD [address] [place] [address] PCP - General PULMONARY DISEASE 08/07/19 03/20/20 Doc Jiang MD [address] [place] [address] PCP - General FAMILY PRACTICE 03/21/20 Jacky Martinez MD [address] [place] [phone] Consulting Physician INTERVENTIONAL CARDIOLOGY 04/23/20 Huey Camarillo MD [address] [place] [phone] Vascular/[employer] Delivery Driver INTERNAL MEDICINE 08/13/20 documented as of this encounter
--- OUTSIDE RECORDS SUMMARY | 2024-09-27 10:37 | XMS_ITS | Encounter Summary ---
Author Organization [facility] Address Count includes the [facility] 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
--- OUTSIDE RECORDS SUMMARY | 2024-09-27 10:37 | XMS_ITS | Encounter Summary ---
Author Organization [facility] Address [address] [place] [address]. 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
--- OUTSIDE RECORDS SUMMARY | 2024-09-27 10:37 | XMS_ITS | Encounter Summary ---
Author Organization [facility] Address [facility] 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 Gender Identity Not on file Sexual Orientation Not on file documented as of this encounter Plan of Treatment Not on file documented as of this encounter Procedures Procedure Name Priority Date/Time Associated Diagnosis Comments BASIC METABOLIC PANEL Routine 12/30/2018 5:15 AM CDT PRO-BRAIN NATRIURETIC PEPTIDE STAT 12/28/2018 12:15 PM CDT PROTHROMBIN TIME, VENOUS STAT 12/28/2018 12:15 PM CDT COMPREHENSIVE METABOLIC PANEL STAT 12/28/2018 12:15 PM CDT CULTURE, BACTERIA, BLOOD STAT 12/28/2018 12:15 PM CDT CULTURE, BACTERIA, BLOOD STAT 12/28/2018 12:15 PM CDT CBC W/DIFF AUTOMATED STAT 12/28/2018 12:15 PM CDT TROPONIN, QUANT STAT 12/28/2018 12:15 PM CDT documented in this encounter Results * BASIC METABOLIC PANEL (12/30/2018 5:15 AM CDT) SODIUM S/P/B 140 136 - 145 MMOL/L 12/30/2018 6:38 AM CDT [facility] POTASSIUM S/P/B 4.5 3.5 - 5.1 MMOL/L 12/30/2018 6:38 AM CDT [facility] CHLORIDE S/P/B 104 98 - 107 MMOL/L 12/30/2018 6:38 AM T [facility] CO2 26.0 21.0 - 32.0 MMOL/L 12/30/2018 6:38 AM T [facility] GLUCOSE 130 70 - 140 MG/DL 12/30/2018 6:38 AM T [facility] BUN 16 6 - 24 MG/DL 12/30/2018 6:38 AM T [facility] CREATININE S/P/B 0.90 0.70 - 1.30 MG/DL 12/30/2018 6:38 AM T [facility] CALCIUM S/P/B 9.4 8.4 - 10.5 MG/DL 12/30/2018 6:38 AM T [facility] ANION GAP 10.0 MMOL/L 12/30/2018 6:38 AM T [facility] Comment:REFERENCE RANGE NOT ESTABLISHED OSMOLALITY (CALC) 293 MOSM/KG 12/30/2018 6:38 AM T [facility] Comment:REFERENCE RANGE NOT ESTABLISHED EGFR NON-AFR. AMER. >90 >89 ML/MIN/1 .73 M2 12/30/2018 6:38 AM T [facility] EGFR AFR. AMER. >90 >89 ML/MIN/1 .73 M2 12/30/2018 6:38 AM T [facility] GFR NOTES THE ESTIMATED GFR IS CALCULATED USING THE 2009 CKD-EPI EQUATION. THE FOLLOWING CATEGORIES FOR GRADING RENAL FUNCTION ARE RECOMMENDED BY THE INTERNATIONAL SOCIETY OF NEPHROLOGY (KDIGO 2012 CLINICAL PRACTICE GUIDELINE). 12/30/2018 6:38 AM CDT [facility] Comment: G1,NORMAL OR HIGH: >89 ml/min/1.73 m2G2,MILDLY DECREASED: 60-89 ml/min/1.73 m2G3A,MILDLY TO MODERATELY DECREASED: 45-59 ml/min/1.73 m2G3B,MODERATELY TO SEVERELY DECREASED: 30-44 ml/min/1.73 m2G4,SEVERELY DECREASED: 15-29 ml/min/1.73 m2G5,KIDNEY FAILURE: <15 ml/min/1.73 m2 12/30/2018 5:15 AM CDT 12/30/2018 6:22 AM CDT us Generic Conversion Md [facility] Final R esult Performing Organization Address City/[facility]/ZIP Co de Phone Number [facility] [address] [place] [address], * CULTURE, BACTERIA, BLOOD (12/28/2018 12:15 PM CDT) SPEC DESCRIPTION BLOOD 12/28/2018 12:18 PM CDT [facility] SPECIAL REQUESTS NO SPECIAL REQUEST 12/28/2018 12:18 PM CDT [facility] CULTURE RESULT NO GROWTH 5 DAYS 01/02/2019 11:57 AM CDT [facility] BLOOD SPECIMEN OBTAINED FOR BLOOD CULTURE / Unknown 12/28/2018 12:15 PM CDT 12/28/2018 12:26 PM CDT us Generic Conversion Md [facility] - GENERAL ORDERABLES Final Result Performing Organization Address City/[facility]/ZIP Co de Phone Number [facility] [address] [place] [id number], * CULTURE, BACTERIA, BLOOD (12/28/2018 12:15 PM CDT) SPEC DESCRIPTION BLOOD 12/28/2018 12:18 PM CDT [facility] SPECIAL REQUESTS NO SPECIAL REQUEST 12/28/2018 12:18 PM CDT [facility] CULTURE RESULT NO GROWTH 5 DAYS 01/02/2019 11:57 AM CDT [facility] BLOOD SPECIMEN OBTAINED FOR BLOOD CULTURE / Unknown 12/28/2018 12:15 PM CDT 12/28/2018 12:25 PM CDT us Generic Conversion Md [facility] - GENERAL ORDERABLES Final Result Performing Organization Address [facility] Co de Phone Number [facility] [address] [place] [address], * TROPONIN, QUANT (12/28/2018 12:15 PM CDT) TROPONIN I <0.017 0.000 - 0.056 ng/mL. 12/28/2018 12:48 PM CDT [facility] Comment: ALTHOUGH VALUES OVER 0.056 ARE CONSIDERED ABNORMAL AND REPRESENT MYOCARDIAL DAMAGE,A CUTOFF OF 0.600 HAS BEEN RECOMMENDED REPRESENTING ACUTE MYOCARDIAL INFARCTION. SERUM OR PLASMA SPECIMEN / Unknown 12/28/2018 12:15 PM CDT 12/28/2018 12:26 PM CDT us Generic Conversion Md [facility] Final R esult Performing Organization Address [facility] Co de Phone Number [facility] [address] [place] [phone], * PROTIME/INR, VENOUS (12/28/2018 12:15 PM CDT) PROTIME 12.5 10.9 - 13.3 SEC 12/28/2018 12:34 PM CDT [facility] INR 1.0 0.9 - 1.1 12/28/2018 12:34 PM CDT [facility] 12/28/2018 12:1 5 PM CDT 12/28/2018 12:26 PM CDT us Generic Conversion Md [facility] Final R esult Performing Organization Address [facility]/ZIP Co de Phone Number [facility] [address] [place] [address], * PRO-BRAIN NATRIURETIC PEPTIDE (12/28/2018 12:15 PM CDT) PRO-B TYPE NATRIURETIC PEPTIDE 68 <125 PG/ML 12/28/2018 12:48 PM CDT [facility] Comment: CUT POINTS ESTABLISHED BY INTERNATIONAL COLLABORATIVE ON NT PROBNP (ICON) STUDY (2006).AGE INDEPENDENT: <300 PG/ML HAS A 99% NEGATIVE PREDICTIVE VALUE FOR EXCLUDING ACUTE CHF<50 YEARS: >450 PG/ML IS CONSISTENT WITH ACUTE GAN74-37 YEARS: >900 PG/ML IS CONSISTENT WITH ACUTE CHF>75 YEARS: >1800 PG/ML IS CONSISTENT WITH ACUTE CHFIN PATIENTS WITH RENAL INSUFFICIENCY (GFR <60), >1200 PG/ML YIELDS A DIAGNOSTIC SENSITIVITY AND SPECIFICITY OF 89% AND 72% FOR ACUTE CHF. 12/28/2018 12:1 5 PM CDT 12/28/2018 12:26 PM CDT us Generic Conversion Md [facility] Final R esult Performing Organization Address [facility] Co de Phone Number [facility] [address] [place] [phone], * COMPREHENSIVE METABOLIC PANEL (12/28/2018 12:15 PM CDT) SODIUM S/P/B 137 136 - 145 MMOL/L 12/28/2018 12:48 PM CDT [facility] POTASSIUM S/P/B 4.6 3.5 - 5.1 MMOL/L 12/28/2018 12:48 PM CDT [facility] CHLORIDE S/P/B 102 98 - 107 MMOL/L 12/28/2018 12:48 PM CDT [facility] CO2 27.2 21.0 - 32.0 MMOL/L 12/28/2018 12:48 PM CDT [facility] GLUCOSE 93 70 - 140 MG/DL 12/28/2018 12:48 [facility] 11 6 - 24 MG/DL 12/28/2018 12:48 PM [facility] CREATININE S/P/B 0.94 0.70 - 1.30 MG/DL 12/28/2018 12:48 PM [facility] CALCIUM S/P/B 9.1 8.4 - 10.5 MG/DL 12/28/2018 12:48 PM [facility] BILIRUBIN TOTAL S/P/B 0.5 0.2 - 1.0 MG/DL 12/28/2018 12:48 PM [facility] ALKALINE PHOSPHATASE S/P/B 101 45 - 115 U/L 12/28/2018 12:48 PM [facility] AST 25 15 - 37 U/L 12/28/2018 12:48 PM [facility] ALT 33 16 - 63 U/L 12/28/2018 12:48 PM [facility] TOTAL PROTEIN S/P/B 7.2 6.4 - 8.2 G/DL 12/28/2018 12:48 PM [facility] ALBUMIN S/P/B 3.5 3.4 - 5.0 G/DL 12/28/2018 12:48 PM [facility] ANION GAP 7.8 MMOL/L 12/28/2018 12:48 PM [facility] Comment:REFERENCE RANGE NOT ESTABLISHED OSMOLALITY (CALC) 283 MOSM/KG 12/28/2018 12:48 PM [facility] Comment:REFERENCE RANGE NOT ESTABLISHED EGFR NON-AFR. AMER. >90 >89 ML/MIN/1 .73 M2 12/28/2018 12:48 PM [facility] EGFR AFR. AMER. >90 >89 ML/MIN/1 .73 M2 12/28/2018 12:48 PM [facility] GFR NOTES THE ESTIMATED GFR IS CALCULATED USING THE 2009 CKD-EPI EQUATION. THE FOLLOWING CATEGORIES FOR GRADING RENAL FUNCTION ARE RECOMMENDED BY THE INTERNATIONAL SOCIETY OF NEPHROLOGY (KDIGO 2012 CLINICAL PRACTICE GUIDELINE). 12/28/2018 12:48 PM [facility] Comment: G1,NORMAL OR HIGH: >89 ml/min/1.73 m2G2,MILDLY DECREASED: 60-89 ml/min/1.73 m2G3A,MILDLY TO MODERATELY DECREASED: 45-59 ml/min/1.73 m2G3B,MODERATELY TO SEVERELY DECREASED: 30-44 ml/min/1.73 m2G4,SEVERELY DECREASED: 15-29 ml/min/1.73 m2G5,KIDNEY FAILURE: <15 ml/min/1.73 m2 PLASMA SPECIMEN / Unknown 12/28/2018 12:15 PM CDT 12/28/2018 12:26 PM CDT us Generic Conversion Md [facility] Final R esult [facility] [address] [employer] [place] [address], * (ABNORMAL) CBC W/DIFF AUTOMATED (12/28/2018 12:15 PM CDT) WBC 8.5 4.5 - 10.8 x10'3/uL 12/28/2018 12:33 PM CDT [facility] RBC 5.15 4.50 - 6.10 x10'6/uL 12/28/2018 12:33 PM CDT [facility] HGB 16.3 13.0 - 18.0 G/DL 12/28/2018 12:33 PM CDT [facility] HCT 48.4 37.0 - 52.0 % 12/28/2018 12:33 PM CDT [facility] MCV 94.0 78.0 - 100.0 FL 12/28/2018 12:33 PM CDT [facility] MCH 31.7(H) 27.0 - 31.0 PG 12/28/2018 12:33 PM CDT [facility] MCHC 33.7 33.0 - 36.0 G/DL 12/28/2018 12:33 PM CDT [facility] RDW 13.7 11.5 - 14.5 % 12/28/2018 12:33 PM CDT [facility] PLT 224 150 - 350 x10'3/uL 12/28/2018 12:33 PM CDT [facility] MPV 10.0 7.4 - 10.4 FL 12/28/2018 12:33 PM CDT [facility] DIFFERENTIAL COMMENT NORMAL REFERENCE RANGE NOT ESTABLISHED FOR THE PROPORTIONAL LEUKOCYTE DIFFERENTIAL. 12/28/2018 12:33 PM CDT [facility] SEG NEUTROPHILS 63.6 % 9 12:33 PM CDT [facility] LYMPHOCYTES 19.7 % 12/28/2018 12:33 PM CDT [facility] MONOCYTES 12.6 % 12/28/2018 12:33 PM CDT [facility] EOSINOPHILS 2.9 % 12/28/2018 12:33 PM CDT [facility] BASOPHILS 0.7 % 12/28/2018 12:33 PM CDT [facility] IMMATURE GRANS % 0.5 % 12/29/19 19 12:33 PM CDT [facility] NRBC 0.0 % 12/28/2018 12:33 PM CDT [facility] ABS. NEUTROPHILS 5.42 1.60 - 8.30 x10'3/uL 12/28/2018 12:33 PM CDT [facility] ABS. LYMPHOCYTES 1.68 0.80 - 4.70 x10'3/uL 12/28/2018 12:33 PM CDT [facility] ABS. MONOCYTES 1.07 0.00 - 1.50 x10'3/uL 12/28/2018 12:33 PM CDT [facility] ABS. EOSINOPHILS 0.25 0.00 - 0.40 x10'3/uL 12/28/2018 12:33 PM CDT [facility] ABS. BASOPHILS 0.06 0.00 - 0.20 x10'3/uL 12/28/2018 12:33 PM CDT [facility] ABS. IMMATURE GRANULOCYTES 0.04(H) 0.00 - 0.03 x10'3/uL 12/28/2018 12:33 PM CDT [facility] ABS. NUCLEATED RBC'S 0.00 0.00 x10'3/uL 12/28/2018 12:33 PM CDT [facility] OTHER (type in comments) 12/28/2018 12:15 PM CDT 12/28/2018 12:26 PM CDT Comment:WHOLE BLOOD SAMPLE us Generic Conversion Md [facility] Final R esult [facility] [address] [place] [address], documented in this encounter Visit Diagnoses Diagnosis Acute respiratory failure with hypoxia (CMS/HCC HHS/HCC) Acute respiratory failure documented in this encounter
--- OUTSIDE RECORDS SUMMARY | 2024-09-27 10:37 | XMS_ITS | Encounter Summary ---
Author Organization [facility] Address Critical access hospital6 [facility] 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 Gender Identity Not on file Sexual Orientation Not on file documented as of this encounter Last Filed Vital Signs Vital Sign Reading Time Taken Comments Blood Pressure 156/98 08/11/2016 12:12 PM SALES FINANCIAL ANALYST Pulse 103 08/11/2016 12:12 PM SALES FINANCIAL ANALYST Temperature - - Respiratory Rate - - Oxygen Saturation - - Inhaled Oxygen Concentration - - Weight 90.7 kg (200 lb) 08/11/2016 12:12 PM SALES FINANCIAL ANALYST Height 175.3 cm (5' 9 ) 08/11/2016 12:12 PM SALES FINANCIAL ANALYST Body Mass Index 29.53 08/11/2016 12:12 PM SALES FINANCIAL ANALYST documented in this encounter Progress Notes * DICK Sousa - 08/11/2016 10:45 AM CST Chief Complaint Chief Complaint: Chief Complaint: The patient presents to the office today with RIGHT Ankle pain. History of Present Illness HPI: Patient comes to clinic today with complaints of RIGHT ankle pain. He reports he stepped into a pot hole and fell forward and put his foot out to catch himself and his ankle rolled inward. THis occurred on 08-09-2016. HE had pain and swelling. He is walking with crutches today. He denies tingling or numbness. He has been using Sawyer for pain. He also uses Meloxicam. He was treated in the ER and subsequently referred to my office. Review of Systems Complete-Male: See HPI for pertinent positives. Active Problems 1. Closed nondisplaced fracture of medial malleolus of right tibia, initial encounter (824.0) (S82.54XA) Past Medical History 1. History of Broken bones (829.0) (T14.8) ?? previous Tibia fracture 2. History of CAD (coronary artery disease) (414.00) (I25.10) 3. History of arthritis (V13.4) (Z87.39) 4. History of asthma (V12.69) (Z87.09) 5. History of hypertension (V12.59) (Z86.79) Surgical History 1. History of Back Surgery ?? chao 2. History of Knee Surgery ?? woodriver Family History Family History 1. Family history of CAD (coronary artery disease) 2. Family history of hypertension (V17.49) (Z82.49) 3. Family history of malignant neoplasm (V16.9) (Z80.9) Social History ?? Alcohol consumption one to two days per week (V49.89) (Z78.9) ?? Four children ?? Lives with relatives ? Smokes cigarettes (305.1) (F17.210) Allergies 1. cortisone Physical Exam Constitutional (Brief): Constitutional: alert and in no acute distress. Neuro/Psych (Brief): Neurological:. the patient was oriented to person, place, and time. mood and affect were appropriate. Eyes (Brief): Eyes: pupils were equal in size, round, reactive to light, with normal accommodation. ENT (Brief): ENT: hearing was normal. Pulmonary (Brief): Pulmonary: no respiratory distress. Skin (Brief): Skin: no injuries or skin lesions on the right lower extremity. Ankle (Right): Right Ankle: EXAM today reveals moderate swelling, tender medial malleolus, some tenderness over lateral malleolus Results/Data Xray: Ankle: XRAYS from [facility] were reviewed and reveals medial malleolus fracture non displaced and severe degenerative changes Findings: Procedure Splint/Cast Application LE: Procedure: of the right ankle. Material: plaster over Webril. Type: short leg posterior splint with the ankle at 90 degrees. Activity Restrictions: The patient is advised to use two crutches and to not bear weight. Assessment 1. Closed nondisplaced fracture of medial malleolus of right tibia, initial encounter (824.0) (S82.54XA) Plan Closed nondisplaced fracture of medial malleolus of right tibia, initial encounter 1. Hydrocodone-Acetaminophen 7.5-325 MG Oral Tablet (Sawyer); 1- 2 Q 4 - 6 HRS PRN PAIN PMH: Broken bones 2. Continue with our present treatment plan.; Status:Complete; Done: 11Aug2016 He'll return in one week for splint removal and XRAYS. Signatures Electronically signed by : Ca Driscoll, ; Aug 11 2016 12:12PM SALES FINANCIAL ANALYST (Author) Electronically signed by : KAYLI Cox; Aug 11 2016 12:13PM SALES FINANCIAL ANALYST (Author) documented in this encounter Plan of Treatment Not on file documented as of this encounter Visit Diagnoses Not on filedocumented in this encounter
--- OUTSIDE RECORDS SUMMARY | 2024-09-27 10:37 | XMS_ITS | Encounter Summary ---
Author Organization [facility] Address [facility] [place] [address] [place] [address] Care Team Providers Care Corn Crop Supervisor Name Role Phone Unavailable Primary Care Provider Unavailabl e Encounter Details Date Type Department Care Team (Late st Contact Info) Description 06/10/2015 Abstract [facility] [address] [place] [address] Cheryl Sellers MD [address] [place], [place] [address] Social History Tobacco Use Types Packs/Day Years Used Date Smoking Tobacco: Never Assessed Sex and Gender Information Value Date Recorded Sex Assigned at Not on file 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
--- OUTSIDE RECORDS SUMMARY | 2024-09-27 10:37 | XMS_ITS | Encounter Summary ---
Author Organization [facility] Address [address] [place] [address]. [place], [place] [address] [place] [address] Care Team Providers Care Insurance Processor Name Role Phone Ismael Mendez MD Primary Care Provider [phone] Reason for Referral * Imaging (Routine) - Closed Specialty Diagnoses / Procedures Referred By Sue johnson Referred To Contact RADIOLOGY Diagnoses Chronic sinusitis Procedures CT SINUS WO CON Dallas Russell PA [address] [place] [phone] Phone: tel: fax: Referral ID Status Reason Start Date Expiration Date Visits Re quested Visits Authorized [id number] Closed 09/19/2019 10/20/2020 1 1 NEYMAN MECHANIC Reason for Visit * Imaging (Routine) - Closed Specialty Diagnoses / Procedures Referred By Sue johnson Referred To Contact RADIOLOGY Diagnoses Chronic sinusitis Procedures CT SINUS WO CON Dallas Russell PA [address] [place] [phone] Phone: tel: fax: Referral ID Status Reason Start Date Expiration Date Visits Re quested Visits Authorized [id number] Closed 09/19/2019 10/20/2020 1 1 Encounter Details Date Type Department Care Team (Latest Contact Info) Description 10/03/2019 9:50 AM JOURNEYMAN MECHANIC - 10/03/2019 11:59 PM JOURNEYMAN MECHANIC Hospital Encounter [facility] [address] [place] [address] Dallas Russell PA [address] [place] [phone] Discharge Disposition: Home or Self Care (Routine Discharge) Social History Tobacco Use Types Packs/Day Years Used Date Smoking Tobacco: Never Assessed Sex and Gender Information Value Date Recorded Sex Assigned at Not on file Legal Sex Male 10:23 PM JOURNEYMAN MECHANIC Gender Identity Not on file Sexual Orientation Not on file documented as of this encounter Medications at Time of Discharge [place] 75 MCG FILM DISSOLVE 1 STRIP TO THE GUM Q 12 HOURS 08/19/2019 08/13/2020 documented as of this encounter Plan of Treatment Not on file documented as of this encounter Procedures Procedure Name Priority Date/Time Associated Diagnosis Comments CT SINUS WO CON Routine 10/03/2019 10:46 AM JOURNEYMAN MECHANIC Chronic sinusitis documented in this encounter Results * CT SINUS WO CON (10/03/2019 10:46 AM JOURNEYMAN MECHANIC) Anatomical Region Laterality Modality Facial Computed Tomogra phy 10/03/2019 6:25 PM JOURNEYMAN MECHANIC Impressions 10/03/2019 6:28 PM JOURNEYMAN MECHANIC IMPRESSION: 1) There are no significant mucosal lesions or air-fluid levels in the paranasal sinuses which appear optimally aerated. 2. Postsurgical changes suggested involving the right ostiomeatal complex. Please correlate with patient's history. 3. Mild to moderate septal deviation convex to the left with mild to moderate enlargement of the nasal turbinates on the left. Interpreted By: Hakeem Clark MD, 10/03/2019 6:25 PM Narrative 10/03/2019 6:28 PM JOURNEYMAN MECHANIC Examination: CT SINUS WO CON Exam time: 10/03/2019 10:46 AM Clinical history: Chronic sinus problems. Comparison: No priors. Technique: A dose lowering technique was used for this procedure, which may include, but is not limited to dose reduction technique, automated exposure control and the use of a iterative reconstruction and ALARA (as low as reasonably achievable)/image gently techniques. Findings: There are no significant mucosal lesions involving the maxillary sinuses. The opening of the ostiomeatal complex is patent. No air-fluid levels. There is mild to moderate deviation of the nasal septum convex to the left with enlargement of the nasal turbinates especially on the right. Postoperative changes suggested involving the right ostiomeatal complex. Please correlate with patient's medical history. In the ethmoid sinuses there are no abnormalities. Frontal sinuses are well aerated and there are no abnormalities in the frontal sinuses and the sphenoid sinuses. The bony margins of the paranasal sinuses are intact. The soft tissues in the infra temporal fossae and the pterygoid space are unremarkable including the parapharyngeal fat planes. Within the orbits no abnormalities. The retropharyngeal tissues are unremarkable including the upper cervical spine and the visualized anterior cranial fossa. In the skull base no acute abnormalities. Mastoid air cells are optimally aerated. Procedure Note Hakeem Clark MD - 10/03/2019 Examination: CT SINUS WO CON Exam time: 10/03/2019 10:46 AM Clinical history: Chronic sinus problems. Comparison: No priors. Technique: A dose lowering technique was used for this procedure, whichmay include, but is not limited to dose reduction technique, automatedexposure control and the use of a iterative reconstruction and ALARA (as low as reasonably achievable)/image gently techniques. Findings: There are no significant mucosal lesions involving themaxillary sinuses. The opening of the ostiomeatal complex is patent. No air-fluid levels. There is mild to moderate deviation of the nasal septum convexto the left with enlargement of the nasal turbinates especially on theright. Postoperative changes suggested involving the right ostiomeatal complex. Please correlate with patient's medical history. In the ethmoid sinuses there are no abnormalities. Frontal sinuses are well aerated and thereare no abnormalities in the frontal sinuses and the sphenoid sinuses. Thebony margins of the paranasal sinuses are intact. The soft tissues in theinfra temporal fossae and the pterygoid space are unremarkable including the parapharyngeal fat planes. Within the orbits no abnormalities. The retropharyngeal tissues are unremarkable including the upper cervicalspine and the visualized anterior cranial fossa. In the skull base no acute abnormalities. Mastoid air cells areoptimally aerated. IMPRESSION: 1) There are no significant mucosal lesions or air-fluid levels in the paranasal sinuses which appear optimally aerated. 2. Postsurgical changes suggested involving the right ostiomeatalcomplex. Please correlate with patient's history. 3. Mild to moderate septal deviation convex to the left with mild to moderate enlargement of the nasal turbinates on the left. Interpreted By: Hakeem Clark MD, 10/03/2019 6:[address] Final Result documented in this encounter Visit Diagnoses Diagnosis Chronic sinusitis Unspecified sinusitis (chronic) documented in this encounter Care Teams Insurance Processor Relationship Specialty Start Date End Date Ismael Mendez MD [address] [place] [id number] PCP - General PULMONARY DISEASE 08/07/19 03/20/20 documented as of this encounter
--- OUTSIDE RECORDS SUMMARY | 2024-09-27 10:37 | XMS_ITS | Encounter Summary ---
Author Organization [facility] Address [address] [facility] 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 Gender Identity Not on file Sexual Orientation Not on file documented as of this encounter Plan of Treatment Not on file documented as of this encounter Visit Diagnoses Not on filedocumented in this encounter Care Teams Verifier Relationship Specialty Start Date End Date Ismael Mendez MD [address] [place] [id number] PCP - General PULMONARY DISEASE 08/07/19 03/20/20 Doc Jiang MD [address] [place] [phone] PCP - General FAMILY PRACTICE 03/21/20 Jacky Martinez MD [address] [place] [phone] Consulting Physician INTERVENTIONAL CARDIOLOGY 04/23/20 Huey Camarillo MD [address] [place] [phone] Vascular/Utilities Manager INTERNAL MEDICINE 08/13/20 documented as of this encounter
--- OUTSIDE RECORDS SUMMARY | 2024-09-27 10:37 | XMS_ITS | Encounter Summary ---
Author Organization [facility] Address [facility] [facility] 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
--- OUTSIDE RECORDS SUMMARY | 2024-09-27 10:52 | XMS_ITS | Encounter Summary ---
Author Organization [facility] Address [address] [place] [address] Phone Care Team Providers Care Plant Specialist Name Role Phone Doc Jiang MD Primary Care Provider [phone] Reason for Visit * Auth/Cert (Routine) Specialty Diagnoses / Procedures Referred By Contvitor t Referred To Contact Referral ID Status Reason Start Date Expiration Date Visits Re quested Visits Authorized [id number] 1 1 Encounter Details Date Type Department Care Team (Late st Contact Info) Description 04/05/2023 9:30 AM CDT Home Care Visit [facility] [address] [place] [address] Anna Marie Barros, POULTRY HELPER [place] PT - HOME VISIT Social History Tobacco Use Types Packs/Day Years Used Date Smoking Tobacco: Never Assessed Sex and Gender Information Value Date Recorded Sex Assigned at Not on file Legal Sex Male 10:31 PM CDT Gender Identity Not on file Sexual Orientation Not on file COVID-19 Exposure Response Date Recorded In the last 10 days, have yo u been in contact with someone who was confirmed or suspected to have Coronavirus/COVID-19? No / Unsure 04/05/2023 9:01 AM CDT documented as of this encounter Last Filed Vital Signs Vital Sign Reading Time Taken Comments Blood Pressure 110/76 04/05/2023 9:38 AM CDT Pulse 104 04/05/2023 9:38 AM CDT Temperature 36.5 ??C (97.7 ??F) 04/05/2023 9:38 AM CD T Respiratory Rate - - Oxygen Saturation 97% 04/05/2023 9:38 AM CDT Inhaled Oxygen Concentration - - Weight - - Height - - Body Mass Index - - documented in this encounter Plan of Treatment Not on file documented as of this encounter Visit Diagnoses Not on filedocumented in this encounter Home Health Visit - Care Plan Visit Details Visit Type -PT - HOME VISIT Discipline -Physical Therapy Problems Problem Description Start Date Status Goals Interve ntions PAIN-MANAGEMENT /EDUCATION Disciplines: Skilled Clinicians 03/31/2023 Active 1 goal linked to scheduled/document ed intervention 1 goal intervention scheduled/documen tremayne in this visit THERAPY DISEASE MANAGEMENT (O) Disciplines: Physical Therapy 04/03/2023 Active - 1 problem intervention scheduled/documen tremayne in this visit PHYSICAL THERAPY EVALUATION (O) Disciplines: Physical Therapy PT Evaluation 04/03/2023 Active 1 goal linked to scheduled/document ed intervention 1 goal intervention scheduled/documen tremayne in this visit PT COMPREHENSIVE Disciplines: Physical Therapy 04/03/2023 Active 4 goals linked to scheduled/document ed interventions 4 goal interventions scheduled/documen tremayne in this visit Goals Goal Associated Problem Outcome Goal Met? Visit Notes Pain Management/Education Description: Shared goal applicable to all disciplines with visit frequency order. Patient's pain level will remain at an acceptable level of 3 or lower with current pain medications/interventions. 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 Target Date: by 04-21-23 () PHYSICAL THERAPY EVALUATION (O) No PT Precautions Description: Application Technical Designer Goal: Patient will demonstrate adherence to sternal precautions - no use of upper extremities for functional mobility, shoulder range of motion restriction no lifting B UE above head, no pushing/no pulling, lifting restriction no greater than 10# in order to promote healing and reduce risk of injury. To be met by 04-21-23. PT COMPREHENSIVE No PT Activity Tolerance Description: penitentiary Goal: Patient to demonstrate increased activity tolerance for 5-10 minutes of gait training as evidenced by a Modified Robert perceived exertion rating of 4/10 or less to facilitate community mobility. To be met by 04-21-23. PT COMPREHENSIVE No PT Ambulation Description: Short Term Goal: Patient will ambulate independently x 5 minute duration with use of no AD, over even surfaces and/or uneven surfaces with the following improved gait characteristics no LOB in order to safely ambulate into MD follow up appt. To be met by 04-14-23. Application Technical Designer Goal: Patient will ambulate independently x 10 minute duration with use of no AD, over even surfaces and/or uneven surfaces with the following improved gait characteristics no LOB in order to safely ambulate into MD follow up appt. To be met by 04-21-23. PT COMPREHENSIVE No PT HEP Description: Application Technical Designer Goal: Patient and/or caregiver will independently with final HEP of strengthening, balance training, conditioning and core strengthening in order to continue making strength gains , improving balance and improving activity tolerance after discharge from home care. To be met by 04-21-23. PT COMPREHENSIVE No Interventions Intervention Associated Problem/Goal Status Variance Visit Notes Pain Management/Education (O) Description: Instruct patient/ caregiver on strategies to manage pain. Problem:PAIN-MANAGEMEN T/EDUCATION Goal:Pain Management/Education Completed Pain management plan: 1. Set a realistic goal for the day. 2. Plan rest periods. 3. Do not wait until pain is severe before doing something to relieve it. 4. Take your medicine regularly as directed. 5. Perform exercises as instructed. 6. Do something that makes you feel productive each day. 7. Make contact with family and friends. 8. Try non drug methods such as massage, aromatherapy, relaxation, and deep breathing. 9. Relaxation/ Breathing instructions: Relaxation helps to decrease muscle tension and stress. Sit in a relaxed position and focus on breathing, close your eyes. Breathe deeply and slowly (not too deeply to avoid muscle tension). If needed, count while breathing to assist with focus. Instruction provided keep balance between rest and activity Instruction provided to Patient. Response verbalize understanding. Therapy COPD Disease Management (O) Description: Monitor for symptoms of COPD exacerbation and report to nurse or physician. Problem:THERAPY DISEASE MANAGEMENT (O) Completed COPD exacerbation symptoms exhibited none. Action taken n/a Physical Therapy General (Order Only) Description: Pt was admitted to [facility] 03/21/23 to undergo a CABG x 4. He has the following precautions : sternal precautions = no pushing/no pulling, no lifting B UE above head, no lifting >10lb. Follow ups : 04/19 - chemist food, surgeon - 04/27. Incisions are R leg and L arm. Pt was going to the gym 3x/week prior to this surgery. 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 PMH : CAD, hypertension, GERD, obesity, COPD, diverticulitis, DC, back surgery, L knee surgery. [facility] PT referral received for diagnosis of weakness following CABG x 4. Pt presents with decline in general mobility and functional endurance and overall safety. Pt would benefit from skilled [facility] PT for gait/mobility training with AD prn, balance/endurance training, ther ex, HEP, and pt education. [facility] therapy may check oxygen saturation level prn during therapy visits with MD notification if SpO2 maintains below 90%. Pt is aware of plan of care, visit schedule, and goals and is agreeable. Perform pulse oximetry PRN for intermittent assessment and/ or respiratory distress. Problem:PHYSICAL THERAPY EVALUATION (O) Goal:Physical Therapy Evaluation Completed PT Precautions Description: Educate patient on indicated precautions. Problem:PT COMPREHENSIVE Goal:PT Precautions Completed Instructed patient on Sternal precautions - no use of upper extremities for functional mobility, no lifting arms above head, lifting restriction not more than 10 lb. To facilitate ability to maintain precautions while performing ADL's. Skill provided Initial instruction in safety and technique. Evaluate compliance: compliant Instruction provided to Patient. Response verbalize understanding. Progress toward goal: ongoing PT Activity Tolerance Description: Instruct and educate in therapeutic techniques to build activity tolerance. Problem:PT COMPREHENSIVE Goal:PT Activity Tolerance Completed Skilled instruction consisting of proper breathing technique, pacing, proper gait speed and proper posture provided to Patient. Tolerance to activity of 4 minutes of gait training with a Modified Robert perceived exertion rating of 6/10 with mild SOB and SpO2 of 94% on room air.. Progress toward goal: ongoing PT Ambulation Description: Provide gait training for increased safety and efficiency. Progress per patient tolerance and safety. Problem:PT COMPREHENSIVE Goal:PT Ambulation Completed Patient ambulated with supervision 4 minutes of gait training with a Modified Robert perceived exertion rating of 6/10 with mild SOB and SpO2 of 94% on room air. Skills provided: Verbal cues consisting of upright posture and deep breathing technique. Tolerance to activity increased gait distance, modified Robert rating 6/10 and pulse ox reading 94%. Instruction provided to Patient. Response verbalize understanding. Progress toward goal: ongoing PT HEP Progression Description: Instruct on home exercise program. Progress as tolerated. Problem:PT COMPREHENSIVE Goal:PT HEP Therapeutic exercise instruction this date in proper performance of 15 reps B LE exercises in reclined supine AROM : ankle pumps, quad sets, glute sets, heel slides, hip abd/add, SAQ. Verbal cues needed for pt to not hold his breath with fair return demo. Patient has no c/o increased pain when performing. Standing exercises instruction in heal toe raises, single knee marching, hip abduction, hip extension, hamstring curls and mini squats all x 10 reps. Patient was provided with LE supine and standing HEP hand outs and instructed to preform HEP 15 - 20 reps 2 x daily. Monitor SpO2 to remain above 90% and HR below 120 bpm. Patient tolerated standing exercises for 5 min tolerance modified Robert RPE = 6/10 with mild SOB and SpO2 remained above 90%. Skills provided for slower pacing, full ROM, correction of movement faults and instruction not to hold breath and proper breathing technique. Home Exercise Program issued for siting HEP Instruction provided to Patient. Response verbalize understanding, return demonstration and additional education required. documented in this encounter Care Teams Plant Specialist Relationship Specialty Start Date End Date Doc Jiang MD [address] [place] [id number] PCP - General Family Medicine 03/23/23 documented as of this encounter
--- OUTSIDE RECORDS SUMMARY | 2024-09-27 10:52 | XMS_ITS | Encounter Summary ---
Author Organization [facility] Address [address] [place] [address] Phone Care Team Providers Care Kindergarten Instructional Assistant Name Role Phone Doc Jiang MD Primary Care Provider [phone] Reason for Visit * Auth/Cert (Routine) Specialty Diagnoses / Procedures Referred By Contvitor t Referred To Contact Referral ID Status Reason Start Date Expiration Date Visits Re quested Visits Authorized [id number] 1 1 Encounter Details Date Type Department Care Team (Late st Contact Info) Description 04/09/2023 Home Care Visit [facility] [address] [place] [address] Nely Sheikh, RN [place] SN-CLINICAL SUPPORT/TRIAGE Social History Tobacco Use Types Packs/Day Years [...] - Care Plan Visit Details Visit Type -SN-CLINICAL SUPP ORT/TRIAGE Discipline -Retirement Problems Problem Description Start Date Status Goals Interve ntions SN GENERAL ORDERS Disciplines: Retirement SN General Orders 03/31/2023 Active 1 goal linked to scheduled/documen tremayne intervention 1 goal intervention scheduled/document ed in this visit WOUND CARE ORDERS(O) Disciplines: Retirement Wound Care Orders 03/31/2023 Active 1 goal linked to scheduled/documen tremayne intervention 1 goal intervention scheduled/document ed in this visit Goals Goal Associated Problem Outcome Goal Met? Visit Notes SN General Description: After assessing the patient and discussing the patient's goals the following were identified: 1. Patient will demonstrate effective self-care management including understanding of ordered medication regimen, signs and symptoms to report, and recommended follow up with physician. Target date: by 04/11/23 (date) 2. Patient will verbalize understanding of medication regimen including name, actions, reason for use, evaluation of effectiveness, side effects, and administration instructions. Target date: by 04/14/23 (date). 3. Patient centered long-term goal incisions healing, increased endurance. Target date: by 05/29/23 (date) SN GENERAL ORDERS No Wound Care Description: 1.Patient/ caregiver will verbalize understanding of wound treatment regimen, and signs and symptoms to report. 2. Expected wound outcome/goal: maintenance Target date: by 05/01/23 (date) WOUND CARE ORDERS(O) No Interventions Intervention Associated Problem/Goal Status Variance Visit Notes General Nursing Plan of Care (Order Only) Description: Admission Certification: 52 y.o male admitted to Home Care Services for SN/PT. Estimation of how long skilled services will be required 60 days. Face to Face encounter occurred on --- with ---. Dr. Campos contacted and agrees with plan of care. Clinical findings: Mr. Sanchez is a 52 year old male who lives with his and 2 adult children. He was recently admitted to [facility] after a cardiac cath. Pt was found to be in need of CABGx4 at [facility]. Pt is now home. He fatigues easily, and gets short of breath after activity. He is not using a device to ambulate with. He has multiple incisions that are open to air. He has sternal precuations and is not to lift more than 10 lbs. Pt is frustrated with how fatigued he gets. He also reports pain in sternal incision at a 5 that can get up to an 8. Skilled Nurse Focus: incision care, cardiac assessment Physical Therapy to evaluate and treat for: walking program Occupational Therapy to evaluate and treat for: endurance training Speech Therapy to evaluate and treat for: not ordered Social Work Focus: not ordered Care Giver to provide: not ordered Past Medical History: Acute myocardial infarction, CAD, COPD (chronic obstructive pulmonary disease) (HCC), Diverticulitis,GERD (gastroesophageal reflux disease, Hypertension, Ischemic heart disease. Other contributing issues: fatigue Skilled Nurse to instruct patient/caregiver on signs and symptoms to report, emergency measures, safety measures, diet, and activity. Instruct on medication regime, and patient management. Perform physical assessment including vital signs and pain assessment. Perform pulse oximetry PRN for intermittent assessment and/ or respiratory distress. Homebound Criteria 1- Patient has illness/injury: s/p CABG , and needs/has: unsteady gait/frequent falls/poor balance Homebound Criteria 2- Inability to leave the home and leaving the home requires a taxing and considerable effort due to: dyspnea with ambulation greater than 20 feet Patient has the following structural impairments: Structures of the cardiovascular system and Structures of the respiratory system Patient has the following functional impairments: Functions of the cardiovascular system and Functions of the respiratory system The patient's activity limitation affects the following: Mobility and Self-care Telehealth contact via video or phone by any discipline as needed to assess/monitor condition related to current diagnoses, to assist with achieving identified goals. Problem:SN GENERAL ORDERS Goal:SN General Scheduled Wound Care (O) Description: Wound Number 1-5. Location left arm, right upper and lower leg, sternum, abdomen. Wound Care Order To be performed Daily, and as needed if dressing is soiled or comes off. To be performed Skilled Nurse, Patient or Caregiver. May shower, Leave incisions open to air. Instruct/ Evaluate signs and symptoms of infection. Instruct/ Perform wound care as ordered. Instruct on signs and symptoms to report. Problem:WOUND CARE ORDERS(O) Goal:Wound Care Scheduled documented in this encounter Care Teams Kindergarten Instructional Assistant Relationship Specialty Start Date End Date Doc Jiang MD [address] [place] [address] PCP - General Family Medicine 03/23/23 documented as of this encounter
--- OUTSIDE RECORDS SUMMARY | 2024-09-27 10:52 | XMS_ITS | Encounter Summary ---
Author Organization [facility] Address [address] [place] [address] Phone Care Team Providers Care Manager Cardiovascular Name Role Phone Doc Jiang MD Primary Care Provider [phone] Reason for Visit * Auth/Cert (Routine) Specialty Diagnoses / Procedures Referred By Contvitor t Referred To Contact Referral ID Status Reason Start Date Expiration Date Visits Re quested Visits Authorized [id number] 1 1 Encounter Details Date Type Department Care Team (Late st Contact Info) Description 04/11/2023 9:30 AM CDT Home Care Visit [facility] [address] [place] [address] Anna Marie Barros, SOCIAL MEDIA COORDINATOR [place] PT - HOME VISIT Social History Tobacco [...] suspected to have Coronavirus/COVID-19? No / Unsure 04/11/2023 9:08 AM CDT documented as of this encounter Last Filed Vital Signs Vital Sign Reading Time Taken Comments Blood Pressure 118/64 04/11/2023 9:45 AM CDT Pulse 122 04/11/2023 10:14 AM CDT Temperature 36.2 ??C (97.2 ??F) 04/11/2023 9:45 AM CD T Respiratory Rate 24 04/11/2023 10:14 AM CDT Oxygen Saturation 92% 04/11/2023 10:14 AM CDT Inhaled Oxygen Concentration - - [...] Description Start Date Status Goals Interve ntions THERAPY DISEASE MANAGEMENT (O) Disciplines: Physical Therapy [...] Associated Problem Outcome Goal Met? Visit Notes Physical Therapy Evaluation Description: After assessing the patient and discussing the patient's goals the following were identified: Patient centered assisted goal: return to work JOHAN. Target Date: by 04-21-23 (date) PHYSICAL THERAPY EVALUATION (O) No PT Precautions Description: Mcfp Goal: Patient will demonstrate adherence to sternal precautions - no use of upper extremities for functional mobility, shoulder range of motion restriction no lifting B UE above head, no pushing/no pulling, lifting restriction no greater than 10# in order to promote healing and reduce risk of injury. To be met by 04-21-23. PT COMPREHENSIVE No PT Activity Tolerance Description: long term Goal: Patient to demonstrate increased activity tolerance [...] up appt. To be met by 04-14-23. Mcfp Goal: Patient will ambulate independently x 10 minute duration with use of no AD, over even surfaces and/or uneven surfaces with the following improved gait characteristics no LOB in order to safely ambulate into MD follow up appt. To be met by 04-21-23. PT COMPREHENSIVE No PT HEP Description: Hand Singer Goal: Patient and/or caregiver will independently with final HEP of strengthening, balance training, conditioning and core strengthening in order to continue making strength gains , improving balance and improving activity tolerance after discharge from home care. To be met by 04-21-23. PT COMPREHENSIVE No Interventions Intervention Associated Problem/Goal Status Variance Visit Notes Therapy COPD Disease Management (O) Description: Monitor for symptoms of COPD exacerbation and report to nurse or physician. Problem:THERAPY DISEASE MANAGEMENT (O) Completed COPD exacerbation symptoms exhibited none. Action taken n/a Physical Therapy General (Order Only) Description: Pt was admitted to [facility] on 03/21/23 to undergo a CABG x 4. He has the following precautions : sternal precautions = no pushing/no pulling, no lifting B UE above head, no lifting >10lb. 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 Incisions are R leg and L arm. Pt was going to the gym 3x/week prior to this surgery. 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 PMH : CAD, hypertension, GERD, obesity, COPD, diverticulitis, [place], back surgery, L knee surgery. [facility] PT referral received for diagnosis of weakness following CABG x 4. Pt presents with decline in general mobility and functional endurance and overall safety. Pt would benefit from skilled [facility] PT for gait/mobility training with AD prn, balance/endurance training, ther ex, HEP, and pt education. [facility] therapy may check oxygen saturation level prn [...] Activity Tolerance Completed Skilled instruction consisting of increased activity tolerance for 5 minutes of recumbent bike x 2 and gait training for 600 feet over 4 min duration with Modified Robert perceived exertion rating of 5/10 and mild SOB post activity. Progress toward goal: ongoing PT Ambulation Description: Provide gait training for increased safety and efficiency. Progress per patient tolerance and safety. Problem:PT COMPREHENSIVE Goal:PT Ambulation Completed Patient ambulated independently 600 feet with no AD over a 4 min period over uneven surfaces outside on grass and pavement with the following gait characteristics good posture, heal toe pattern with no LOB. Patient did have mild SOB post activity with Modified Robert of 5/10, SpO2 = 90% and HR= 106 bpm. for 2 min Skills provided: deep breathing technique, instruction monitoring vitals. Tolerance to activity fair Instruction provided to Patient. Response verbalize understanding and return demonstration. Progress toward goal: ongoing PT HEP Progression Description: Instruct on home exercise program. Progress as tolerated. Problem:PT COMPREHENSIVE Goal:PT HEP Completed Home Exercise Program issued for supine and standing exercises with provided handouts at prior visit. Patient reported he has been doing some of the exercises. At today's visit patient preformed 5 min x 2 of LE recumbent bike with moderate pace. Vitals post first episode, HR = 118 bpm, SpO2 = 99%. He demo mild SOB for 1 min post episode and 3 min for recovery for HR recovery. Second episode, HR =120, SpO2 = 92% with recovery to baseline within 3 min. Instruction provided to Patient. Response verbalize understanding. documented in this encounter Care Teams Manager Cardiovascular Relationship Specialty Start Date End Date Doc Jiang MD [address] [place] [address] PCP - General Family Medicine 03/23/23 documented as of this encounter
--- OUTSIDE RECORDS SUMMARY | 2024-09-27 10:52 | XMS_ITS | Encounter Summary ---
Author Organization [facility] Address [address] [place] [address] Phone Care Team Providers Care Commission Sales Associate Name Role Phone Doc Jiang MD Primary Care Provider [phone] Reason for Visit * Auth/Cert (Routine) Specialty Diagnoses / Procedures Referred By Sue t Referred To Contact Referral ID Status Reason Start Date Expiration Date Visits Re quested Visits Authorized [id number] 1 1 Encounter Details Date Type Department Care Team (Latest Contact Info) Description 04/10/2023 4:00 PM CDT Home Care Visit [facility] [address] [place] [address] Siddharth Castro, RN [place] SN - PRIORITY VISIT Social History Tobacco Use Types Packs/Day [...] suspected to have Coronavirus/COVID-19? No / Unsure 04/13/2023 8:47 AM CDT documented as of this encounter Last Filed Vital Signs Vital Sign Reading Time Taken Comments Blood Pressure 102/56 04/10/2023 2:30 PM CDT Pulse 88 04/10/2023 2:30 PM CDT Temperature 36.3 ??C (97.4 ??F) 04/10/2023 2:30 PM CD T Respiratory Rate 18 04/10/2023 2:30 PM CDT Oxygen Saturation 96% 04/10/2023 2:30 PM CDT Inhaled Oxygen Concentration - - Weight - - Height - - Body Mass Index - - documented in this encounter Plan of Treatment Not on file documented as of this encounter Visit Diagnoses Not on filedocumented in this encounter Home Health Visit - Care Plan Visit Details Visit Type -SN - Priority Vi sit Discipline -Senior Living Problems Problem Description Start Date Status Goals Interve ntions POST OPERATIVE Disciplines: Senior Living Post OP General 03/31/2023 Active 1 goal linked to scheduled/documen tremayne intervention 1 goal intervention scheduled/document ed in this visit PAIN-MANAGEMENT /EDUCATION Disciplines: Skilled Clinicians 03/31/2023 Active 1 goal linked to scheduled/documen tremayne intervention 1 goal intervention scheduled/document ed in this visit SN GENERAL ORDERS Disciplines: Senior Living SN General Orders 03/31/2023 Active 1 goal linked to scheduled/documen tremayne intervention 2 goal interventions scheduled/document ed in this visit WOUND CARE ORDERS(O) Disciplines: Senior Living Wound Care Orders 03/31/2023 Active 1 goal linked to scheduled/documen tremayne intervention 1 goal intervention scheduled/document ed in this visit HYPERTENSION ORDERS Disciplines: Senior Living Hypertension Orders 03/31/2023 Active 1 goal linked to scheduled/documen tremayne intervention 1 goal intervention scheduled/document ed in this visit Goals Goal Associated Problem Outcome Goal Met? Visit Notes Post Operative Description: Patient will verbalize understanding of potential post-operative complications to report. Target date: by 05/29/23 (date) POST OPERATIVE Outcome Achieved Yes Pt has good understanding of complications to report. Pain Management/Education Description: Shared goal applicable to all disciplines with visit frequency order. Patient's pain level will remain at an acceptable level of 3 or lower with current pain medications/interventi ons. Target date: by 05/15/23 (date) PAIN-MANAGEMENT/ED UCATION Outcome Achieved Yes Pain management plan: 1. Set a realistic [...] breathing to assist with focus. Instruction provided rest, relaxation medicaiton. Instruction provided to Patient. Response verbalize understanding. SN General Description: After assessing the patient [...] by 05/01/23 (date) WOUND CARE ORDERS(O) No Hypertension Description: Patient will demonstrate knowledge of Hypertension disease process, treatment goals and self-care management. Target date: by 05/01/23 (date) HYPERTENSION ORDERS No Interventions Intervention Associated Problem/Goal Status Variance Visit Notes Post-Operative Cardiac Surgery Education Problem:POST OPERATIVE Goal:Post Operative Post operative cardiac surgery instructions provided: Activity- avoid lifting > 10 lbs., avoid push/pull activities (vacuuming, mowing lawn), avoid straining with bowel movement, fatigue is normal, rest/avoid over exertion, Chest Pain- difference between incision pain and heart pain, Pneumonia prevention- Coughing and deep breathing techniques and use of incentive spirometer, report increased shortness of breath, increased or productive cough, fever , Self-monitoring techniques- daily weight, edema, pulse taking, S/S pain, actions to take with abnormal findings, Temperature- Report temperature greater than 100.0 F and Thrombosis Sx- positive Luis's sign, calf edema, pain, redness, warmth, chest pain, increased shortness of breath Instruction provided to Patient. Response verbalize understanding. Pain Management/Education (O) Description: Instruct patient/ caregiver on strategies to manage pain. Problem:PAIN-MANAGEM ENT/EDUCATION Goal:Pain Management/Education Pain management plan: 1. Set a realistic [...] breathing to assist with focus. Instruction provided rest, relaxation, medication. Instruction provided to Patient. Response verbalize understanding. General Nursing Plan of Care (Order Only) [...] adult children. He was recently admitted to [place] after a cardiac cath. Pt was found to be in need of CABGx4 at [facility]. Pt is now home. He fatigues easily, [...] not ordered Social Work Focus: not ordered Hotel Yardperson to provide: not ordered Past Medical History: [...] goals. Problem:SN GENERAL ORDERS Goal:SN General Scheduled Additional Disease Management (O) Description: SN to monitor for signs and symptoms of exacerbation or complications of Acute myocardial infarction, CAD, COPD (chronic obstructive pulmonary disease) (HCC), Diverticulitis,GERD (gastroesophageal reflux disease, Hypertension, Ischemic heart disease. Problem:SN GENERAL ORDERS Goal:SN General Exacerbation/ complications noted at this visit: none Wound Care (O) Description: Wound Number 1-5. [...] report. Problem:WOUND CARE ORDERS(O) Goal:Wound Care Scheduled ALEXEY Hypertension (O) Description: Instruct on hypertension, signs/symptoms, complications and methods to prevent. Problem:HYPERTENSION ORDERS Goal:Hypertension Hypertension education provided: Blood pressure monitoring- use of home device, daily log, reporting parameters, Dehydration sx- dark urine, thirst, dry/cracked lips, dry skin, urinating less, dizziness, headache and Fluid retention sx- edema, urinating less, rapid weight gain (3lbs. in one day or 5lbs. in one week) Instruction provided to Patient. Response verbalize understanding. documented in this encounter Care Teams Commission Sales Associate Relationship Specialty Start Date End Date Doc Jiang MD [address] [place], [place] [id number] PCP - General Family Medicine 03/23/23 documented as of this encounter
--- OUTSIDE RECORDS SUMMARY | 2024-09-27 10:52 | XMS_ITS | Encounter Summary ---
Author Organization [facility] Care Team Providers Care Packing Machine Pilot Can Router Name Role Phone Doc Jiang MD Primary Care Provider [phone] Encounter Details Date Type Department Care Team (Latest Contact Info) Description 04/05/2023 Travel Social History Tobacco Use Types Packs/Day [...] on filedocumented in this encounter Care Teams Packing Machine Pilot Can Router Relationship Specialty Start Date End Date Doc Jiang MD [address] [place] [address] PCP - General Family Medicine 03/23/23 documented as of this encounter
--- OUTSIDE RECORDS SUMMARY | 2024-09-27 10:52 | XMS_ITS | Encounter Summary ---
Author Organization [facility] Care Team Providers Care Material Hauler Name Role Phone Doc Jiang MD Primary Care Provider [phone] Encounter Details Date Type Department Care Team (Latest Contact Info) Description 04/17/2023 Travel Social History Tobacco Use Types Packs/Day [...] suspected to have Coronavirus/COVID-19? No / Unsure 04/17/2023 4:37 PM CDT documented as of this encounter Plan of Treatment Not on file documented as of this encounter Visit Diagnoses Not on filedocumented in this encounter Care Teams Material Hauler Relationship Specialty Start Date End Date Dco Jiang MD [address] [place] [address] PCP - General Family Medicine 03/23/23 documented as of this encounter
--- OUTSIDE RECORDS SUMMARY | 2024-09-27 10:52 | XMS_ITS | Encounter Summary ---
Author Organization [facility] Address [address] [place] [address] Phone Care Team Providers Care Glass Blowing Instructor Name Role Phone Doc Jiang MD Primary Care Provider [phone] Reason for Visit * Auth/Cert (Routine) Specialty Diagnoses / Procedures Referred By Sue t Referred To Contact Referral ID Status Reason Start Date Expiration Date Visits Re quested Visits Authorized [id number] 1 1 Encounter Details Date Type Department Care Team (Late st Contact Info) Description 04/18/2023 9:00 AM CDT Home Care Visit [facility] [address] [place] [address] Anna Marie Barros, CIRCULATION WORKER [place] PT - HOME VISIT Social History Tobacco [...] goals the following were identified: Patient centered director long term care goal: return to work JOHAN. Target Date: by 04-21-23 (date) PHYSICAL THERAPY EVALUATION (O) No PT Precautions Description: Halfway Goal: Patient will demonstrate adherence to sternal precautions - no use of upper extremities for functional mobility, shoulder range of motion restriction no lifting B UE above head, no pushing/no pulling, lifting restriction no greater than 10# in order to promote healing and reduce risk of injury. To be met by 04-21-23. PT COMPREHENSIVE No PT Activity Tolerance Description: halfway Goal: Patient to demonstrate increased activity tolerance [...] up appt. To be met by 04-14-23. Halfway Goal: Patient will ambulate independently x 10 minute duration with use of no AD, over even surfaces and/or uneven surfaces with the following improved gait characteristics no LOB in order to safely ambulate into MD follow up appt. To be met by 04-21-23. PT COMPREHENSIVE No PT HEP Description: Halfway Goal: Patient and/or caregiver will independently with [...] (Order Only) Description: Pt was admitted to [facility] on 03/21/23 to undergo a CABG x 4. He has the following precautions : sternal precautions = no pushing/no pulling, no lifting B UE above head, no lifting >10lb. 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 Incisions are R leg and L arm. Pt was going to the gym 3x/week prior to this surgery. 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 PMH : CAD, hypertension, GERD, obesity, COPD, diverticulitis, ID, back surgery, L knee surgery. [facility] PT referral received for diagnosis of weakness following CABG x 4. Pt presents with decline in general mobility and functional endurance and overall safety. Pt would benefit from skilled [facility] PT for gait/mobility training with AD prn, balance/endurance training, ther ex, HEP, and pt education. [facility] therapy may check oxygen saturation level prn during therapy visits with MD notification if SpO2 maintains below 90%. Pt is aware of plan of care, visit schedule, and goals and is agreeable. Perform pulse oximetry PRN for intermittent assessment and/ or respiratory distress. Problem:PHYSICAL THERAPY EVALUATION (O) Goal:Physical Therapy Evaluation Completed PT Precautions Description: Educate patient on indicated precautions. Problem:PT COMPREHENSIVE Goal:PT Precautions Reviewed Sternal precautions - no use of upper [...] tolerance. Problem:PT COMPREHENSIVE Goal:PT Activity Tolerance Completed Patient is set for PT HH D/C on 04/21/23, he is aware and agreeable to D/C. Discussed cardiac rehab with patient again he is going to talk with his Product Safety Compliance Leader tomorrow and see if he feels he needs it or not. Patient reported he has been increasing activity during the day to prepare for return to work. Today's treatment consisted of non stop activity of walking x 15 min without AD outside home, performance of front entry steps, standing exercises 2 x 10 reps, 5 inside steps preformed x 5 and ambulation inside home for a total of 30 min of non stop activity with highest HR of 114 and SpO2 remaining above 945 t/o activity and mild SOB, patient placed modified Robert at 3/10 after this activity. PT Ambulation Description: Provide gait training for increased safety and efficiency. Progress per patient tolerance and safety. Problem:PT COMPREHENSIVE Goal:PT Ambulation Completed Patient ambulated inside and out sideindependently 15 min no AD over even surfaces and uneven surfaces with the following gait characteristics good gait konstantin no LOB. Skills provided: Verbal cues consisting of breathing technique. Tolerance to activity good. Instruction provided to Patient. Response verbalize understanding. Progress toward goal: met PT HEP Progression Description: Instruct on home exercise program. Progress as tolerated. Problem:PT COMPREHENSIVE Goal:PT HEP Completed Home Exercise Program issued for supine, sit and standing with provided handouts. Instruction provided to Patient. Response verbalize understanding and return demonstration. documented in this encounter Care Teams Glass Blowing Instructor Relationship Specialty Start Date End Date Doc Jiang MD [address] [place] [id number] PCP - General Family Medicine 03/23/23 documented as of this encounter
--- OUTSIDE RECORDS SUMMARY | 2024-09-27 10:52 | XMS_ITS | Clinical Summary ---
Author Organization [facility] Address [address] [facility], [address] [address] Phone Care Team Providers Care Employee Benefits Attorney Name Role Phone Doc Jiang MD Primary Care Provider [phone] Allergies Active Allergy Reactions Criticality Noted Date Comments Cortisone Anaphylaxis 03/31/2023 Hydrocortisone Anaphylaxis 03/31/2023 Metronidazole Rash 03/31/2023 Medications acetaminophen (TYLENOL) 500 MG Tablet Take 1,000 mg by mouth 3 times daily as needed for Mild or more severe pain, Moderate or more severe pain or Severe pain. Active albuterol (ProAir HFA) 108 (90 Base) MCG/ACT Aerosol Solution take 2 Puffs by inhalation every 6 hours as needed for Wheezing. Active albuterol (PROVENTIL, VENTOLIN) (2.5 MG/3ML) 0.083% Nebulizer Soln 2.5 mg by Nebulization route every 6 hours as needed for Shortness of Breath or Wheezing. Active atorvastatin (LIPITOR) 40 MG Tablet Take 40 mg by mouth daily. Active aspirin EC 81 MG Tablet Delayed Response Take 81 mg by mouth daily. Active clopidogrel (Plavix) 75 MG Tablet Take 75 mg by mouth daily. Active ezetimibe (Zetia) 10 MG Tablet Take 10 mg by mouth daily. Active lisinopril (PRINIVIL, ZESTRIL) 10 MG Tablet Take 10 mg by mouth daily. Active loratadine (CLARITIN) 10 MG Tablet Take 10 mg by mouth daily. Active pregabalin (Lyrica) 150 MG Capsule Take 75 mg by mouth nightly. Active metoprolol tartrate (LOPRESSOR) 25 MG Tablet Take 25 mg by mouth 2 times daily. Active nitroGLYCERIN (NITROSTAT) 0.4 MG SL Tablet 0.4 mg by Sublingual route every 5 minutes as needed for Chest pain. may repeat every 5 minutes, if no relief after 3 tabs, call 911 Active oxyCODONE (ROXICODONE) 5 MG Tablet Take 5 mg by mouth every 4 hours as needed for Moderate or more severe pain or Severe pain. Active potassium chloride (KLOR-CON) 20 MEQ Pack Take 20 mEq by mouth daily. Active tiZANidine (ZANAFLEX) 2 MG Tablet Take 2 mg by mouth 3 times daily as needed for Muscle spasms. Active Social History Tobacco Use Types Packs/Day Years Used Date Smoking Tobacco: Never Assessed Sex and Gender Information Value Date Recorded Sex Assigned at Not on file Legal Sex Male 10:31 PM CDT Gender Identity Not on file Sexual Orientation Not on file Last Filed Vital Signs Vital Sign Reading Time Taken Comments Blood Pressure 118/62 04/21/2023 9:34 AM CDT Pulse 68 04/21/2023 9:34 AM CDT Temperature 36.1 ??C (97 ??F) 04/21/2023 9:34 AM CDT Respiratory Rate 16 04/21/2023 9:34 AM CDT Oxygen Saturation 97% 04/21/2023 9:34 AM CDT Inhaled Oxygen Concentration - - Weight 92.5 kg (204 lb) 04/07/2023 9:36 AM CDT Height 175.3 cm (5' 9 ) 04/04/2023 11:28 AM CDT Body Mass Index 30.13 04/04/2023 11:28 AM CDT Plan of Treatment Health Maintenance Due Date Last Done Comments Hepatitis C Virus (HCV) Screening 1969 TdaP Immunization 1969 Hepatitis B Immunization (1 of 3 - 19+ 3-dose series) 1988 Colonoscopy 2014 Colorectal Cancer Screening 2014 Cologuard 12/24/2019 Immunochemical Fecal Occult Blood 12/24/2019 Pneumococcal Immunization (5 0+ years) (1 of 1 - PCV) 12/24/2019 Zoster Immunization (1 of 2) 12/24/2019 Influenza Immunization (#1) 2024 SARS-COV-2 Immunization (3 - season) 2024 02/13/2021, 01/16/2021 Respiratory Syncytial Virus (RSV) Immunization (Adult) (1 - 1-dose 75+ series) 2044 Meningococcal Immunization (ACWY) Aged Out No longer eligible b ased on patient's age to complete this topic Pneumococcal Immunization Combined Aged Out No longer eligible b ased on patient's age to complete this topic Rotavirus Immunization Aged Out No lo nger eligible based on patient's age to complete this topic Insurance [facility] Advance Directives * Full Code (Latest Code Status on File) Date Activated Date Inactivated Comments 04/06/2023 11:52 AM Care Teams Employee Benefits Attorney Relationship Specialty Start Date End Date Doc Jiang MD [address] [place] [address] PCP - General Family Medicine 03/23/23
--- OUTSIDE RECORDS SUMMARY | 2024-09-27 10:52 | XMS_ITS | Encounter Summary ---
Author Organization [facility] Address [address] [place] [address] Phone Care Team Providers Care Tree Deadener Name Role Phone Doc Jiang MD Primary Care Provider [phone] Reason for Visit * Auth/Cert (Routine) Specialty Diagnoses / Procedures Referred By Sue t Referred To Contact Referral ID Status Reason Start Date Expiration Date Visits Re quested Visits Authorized [id number] 1 1 Encounter Details Date Type Department Care Team (Latest Contact Info) Description 04/07/2023 9:00 AM CDT Home Care Visit [facility] [address] [place] [address] Siddharth Castro, RN [place] SN - PRIORITY [...] Sign Reading Time Taken Comments Blood Pressure 122/66 04/07/2023 9:36 AM CDT Pulse 70 04/07/2023 9:36 AM CDT Temperature 36.2 ??C (97.1 ??F) 04/07/2023 9:36 AM CD T Respiratory Rate 20 04/07/2023 9:36 AM CDT Oxygen Saturation 97% 04/07/2023 9:36 AM CDT Inhaled Oxygen Concentration - - Weight 92.5 kg (204 lb) 04/07/2023 9:36 AM CDT Height - - Body Mass Index 30.13 04/04/2023 11:28 AM CDT documented in this encounter Plan of Treatment Not on file documented as of this encounter Visit Diagnoses Not on filedocumented in this encounter Home Health Visit - Care Plan Visit Details Visit Type -SN - Priority Vi sit Discipline -Care Home Problems Problem Description Start Date Status Goals Interve ntions POST OPERATIVE Disciplines: Care Home Post OP General 03/31/2023 Active 1 goal linked to scheduled/documen tremayne intervention 1 goal intervention scheduled/document ed in this visit PAIN-MANAGEMENT /EDUCATION Disciplines: Skilled Clinicians 03/31/2023 Active 1 goal linked to scheduled/documen tremayne intervention 1 goal intervention scheduled/document ed in this visit SN GENERAL ORDERS Disciplines: Care Home SN General Orders 03/31/2023 Active 1 goal linked to scheduled/documen tremayne intervention 2 goal interventions scheduled/document ed in this visit WOUND CARE ORDERS(O) Disciplines: Care Home Wound Care Orders 03/31/2023 Active 1 goal linked to scheduled/documen tremayne intervention 1 goal intervention scheduled/document ed in this visit HYPERTENSION ORDERS Disciplines: Care Home Hypertension Orders 03/31/2023 Active 1 goal linked to scheduled/documen tremayne intervention 1 goal intervention scheduled/document ed in this visit Goals Goal Associated Problem Outcome Goal Met? Visit Notes Post Operative Description: Patient will verbalize understanding of potential post-operative complications to report. Target date: by 05/29/23 (date) POST OPERATIVE No Pain Management/Education Description: Shared goal applicable to all disciplines with visit frequency order. Patient's pain level will remain at an acceptable level of 3 or lower with current pain medications/interventions. Target date: by 05/15/23 (date) PAIN-MANAGEMENT/EDUCATION No SN General Description: After assessing the patient [...] assist with focus. Instruction provided rest, relaxation . Instruction provided to Patient. Response verbalize understanding. [...] adult children. He was recently admitted to [place] [facility] after a cardiac cath. Pt was found to be in need of CABGx4 at [facility]. Pt is now home. He fatigues easily, [...] not ordered Social Work Focus: not ordered Gore Seamer to provide: not ordered Past Medical History: [...] report. Problem:WOUND CARE ORDERS(O) Goal:Wound Care Scheduled left open to air. Hypertension (O) Description: Instruct on hypertension, signs/symptoms, complications and methods to prevent. Problem:HYPERTENSION ORDERS Goal:Hypertension Hypertension education provided: Self-management- take meds as ordered, follow prescribed diet, maintain healthy weight, regular activity, smoking cessation, stress relief, Blood pressure monitoring- use of home device, daily log, reporting parameters, Dehydration sx- dark urine, thirst, dry/cracked lips, dry skin, urinating less, dizziness, headache and Fluid retention sx- edema, urinating less, rapid weight gain (3lbs. in one day or 5lbs. in one week) Instruction provided to Patient. Response verbalize understanding. documented in this encounter Care Teams Tree Deadener Relationship Specialty Start Date End Date Doc Jiang MD [address] [place] [id number] PCP - General Family Medicine 03/23/23 documented as of this encounter
--- OUTSIDE RECORDS SUMMARY | 2024-09-27 10:52 | XMS_ITS | Encounter Summary ---
Author Organization [facility] Address [address] [place] [address] Phone Care Team Providers Care Anesthesiologist Assistant Name Role Phone Doc Jiang MD Primary Care Provider [phone] Reason for Visit * Auth/Cert (Routine) Specialty Diagnoses / Procedures Referred By Contac t Referred To Contact Referral ID Status Reason Start Date Expiration Date Visits Re quested Visits Authorized [id number] 1 1 Encounter Details Date Type Department Care Team (Late st Contact Info) Description 04/11/2023 [facility] [address] [place] [address] Siddharth Castro, RN [place] TELEPHONE ENCOUNTER Social History Tobacco Use Types Packs/Day Years [...] in this encounter Home Health Visit - Actions and Narratives Actions Spoke with Kristina Yousif NP at [facility]. Notified of bruising to thigh and calf and of nose bleeds. States bruising in calf is probably just settling down from thigh. Also, states for pt to hold plavix for one week and resume on Monday. Pt will be seen by cardio next week. Pt may also try ocean mist spray for moisture to prevent nose bleeds. documented in this encounter Care Teams Anesthesiologist Assistant Relationship Specialty Start Date End Date Doc Jiang MD [address] [place] [id number] PCP - General Family Medicine 03/23/23 documented as of this encounter
--- OUTSIDE RECORDS SUMMARY | 2024-09-27 10:52 | XMS_ITS | Encounter Summary ---
Author Organization [facility] Address [address] [place] [address] Phone Care Team Providers Care Order Manager Name Role Phone Doc Jiang MD Primary Care Provider [phone] Reason for Visit * Auth/Cert (Routine) Specialty Diagnoses / Procedures Referred By Contac t Referred To Contact Referral ID Status Reason Start Date Expiration Date Visits Re quested Visits Authorized [id number] 1 1 Encounter Details Date Type Department Care Team (Late st Contact Info) Description 04/09/2023 [facility] [address] [place] [address] Siddharth Castro, RN [place] TELEPHONE ENCOUNTER Social [...] on filedocumented in this encounter Care Teams Order Manager Relationship Specialty Start Date End Date Doc Jiang MD [address] [place] [address] PCP - General Family Medicine 03/23/23 documented as of this encounter
--- OUTSIDE RECORDS SUMMARY | 2024-09-27 10:52 | XMS_ITS | Encounter Summary ---
Author Organization [facility] Address [address] [place] [address] Phone Care Team Providers Care Certified Art Therapist Name Role Phone Doc Jiang MD Primary Care Provider [phone] Reason for Visit * Auth/Cert (Routine) Specialty Diagnoses / Procedures Referred By Sue t Referred To Contact Referral ID Status Reason Start Date Expiration Date Visits Re quested Visits Authorized [id number] 1 1 Encounter Details Date Type Department Care Team (Latest Contact Info) Description 04/17/2023 4:00 PM CDT Home Care Visit [facility] [address] [place] [address] Siddharth Castro, RN [place] SN - DISCIPLINE DISCHARGE Social History Tobacco Use Types Packs/Day Years [...] Sign Reading Time Taken Comments Blood Pressure 128/66 04/17/2023 4:30 PM CDT Pulse 84 04/17/2023 4:30 PM CDT Temperature 36.3 ??C (97.3 ??F) 04/17/2023 4:30 PM CD T Respiratory Rate 18 04/17/2023 4:30 PM CDT Oxygen Saturation 98% 04/17/2023 4:30 PM CDT Inhaled Oxygen Concentration - - Weight - - Height - - Body Mass Index - - documented in this encounter Plan of Treatment Not on file documented as of this encounter Visit Diagnoses Not on filedocumented in this encounter Home Health Visit - Care Plan Visit Details Visit Type -SN - DISCIPLINE DISCHARGE Discipline -[facility] Problems Problem Description Start Date Status Goals Interve ntions FALL PREVENTION (O) Disciplines: SN, PT, OT, RUBBER CUTTER, HCA, MARRIAGE PERFORMER, RT 03/31/2023 Active 1 goal linked to scheduled/documen tremayne intervention SN GENERAL ORDERS Disciplines: [facility] SN General Orders 03/31/2023 Active 1 goal linked to scheduled/documen tremayne intervention 2 goal interventions scheduled/document ed in this visit WOUND CARE ORDERS(O) Disciplines: [facility] Wound Care Orders 03/31/2023 Active 1 goal linked to scheduled/documen tremayne intervention 1 goal intervention scheduled/document ed in this visit HEART FAILURE ORDER Disciplines: [facility] Heart Failure Order 03/31/2023 Active 1 goal linked to scheduled/documen tremayne intervention HYPERTENSION ORDERS Disciplines: [facility] Hypertension Orders 03/31/2023 Active 1 goal linked to scheduled/documen tremayne intervention 1 goal intervention scheduled/document ed in this visit COPD ORDERS Disciplines: [facility] 03/31/2023 Active 1 goal linked to scheduled/documen tremayne intervention Goals Goal Associated Problem Outcome Goal Met? Visit Notes Fall Prevention Description: Shared goal applicable to all disciplines with a visit frequency order. Patient/ Caregiver will verbalize understanding of identified fall risk based on [facility]-10 Fall Risk assessment and methods to prevent falls. Target date: by 05/08/23 (date) FALL PREVENTION (O) Outcome Achieved Yes SN General Description: After assessing the patient [...] date: by 05/29/23 (date) SN GENERAL ORDERS Outcome Achieved Yes Wound Care Description: 1.Patient/ caregiver will verbalize understanding of wound treatment regimen, and signs and symptoms to report. 2. Expected wound outcome/goal: maintenance Target date: by 05/01/23 (date) WOUND CARE ORDERS(O) Outcome Achieved Yes healed Heart Failure Description: 1. Patient will manage the Heart Failure Education and demonstrate teachback competency. 2. Patient will acknowledge the chronic condition by verbalizing I have heart failure. 3. Patient will demonstrate self care by independently weighing daily at the same time, in the same clothes, and recording that weight in their weight log. Target date: by 04/28/23 (date) HEART FAILURE ORDER Outcome Achieved Yes Hypertension Description: Patient will demonstrate knowledge of Hypertension disease process, treatment goals and self-care management. Target date: by 05/01/23 (date) HYPERTENSION ORDERS Outcome Achieved Yes COPD Description: Patient will verbalize understanding of methods to prevent exacerbation of COPD. Patient/caregiver will verbalize understanding of COPD self-care management. Target date: by 05/01/23 (date) COPD ORDERS Outcome Achieved Yes Interventions Intervention Associated Problem/Goal Status Variance Visit [...] adult children. He was recently admitted to [place] after a cardiac cath. 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 Pt is now home. He [...] not ordered Social Work Focus: not ordered Employee Relations Assistant to provide: not ordered Past Medical History: [...] report. Problem:WOUND CARE ORDERS(O) Goal:Wound Care Scheduled Hypertension (O) Description: Instruct on hypertension, signs/symptoms, complications and methods to prevent. Problem:HYPERTENSION ORDERS Goal:Hypertension Hypertension education provided: Self-management- take meds as ordered, follow prescribed diet, maintain healthy weight, regular activity, smoking cessation, stress relief Instruction provided to Patient. Response verbalize understanding. documented in this encounter Care Teams Certified Art Therapist Relationship Specialty Start Date End Date Doc Jiang MD [address] [place], [place] [id number] PCP - General Family Medicine 03/23/23 documented as of this encounter
--- OUTSIDE RECORDS SUMMARY | 2024-09-27 10:52 | XMS_ITS | Encounter Summary ---
Author Organization [facility] Address [address] [place] [address] Phone Care Team Providers Care Applied Anthropologist Name Role Phone Doc Jiang MD Primary Care Provider [phone] Reason for Visit * Auth/Cert (Routine) Specialty Diagnoses / Procedures Referred By Contvitor t Referred To Contact Referral ID Status Reason Start Date Expiration Date Visits Re quested Visits Authorized [id number] 1 1 Encounter Details Date Type Department Care Team (Late st Contact Info) Description 04/21/2023 9:15 AM CDT Home Care Visit [facility] [address] [place] [address] Shayna Yee, PT PT - OASIS DISCHARGE Social History Tobacco Use Types Packs/Day [...] Plan Visit Details Visit Type -PT - OASIS DISCH ARGE Discipline -Physical Therapy Problems Problem Description Start Date Status Goals Interve ntions PT DISCHARGE/MARY SSESSMENT Disciplines: Physical Therapy PT Discharge 04/03/2023 Resolved on 04/21/2023 - 1 problem intervention scheduled/document ed in this visit PT COMPREHENSIVE Disciplines: Physical Therapy 04/03/2023 Resolved on 04/21/2023 4 goals linked to scheduled/document ed interventions 3 goal interventions scheduled/document ed in this visit Goals Goal Associated Problem Outcome Goal Met? Visit Notes PT Precautions Description: Senior Living Goal: Patient will demonstrate adherence to sternal precautions - no use of upper extremities for functional mobility, shoulder range of motion restriction no lifting B UE above head, no pushing/no pulling, lifting restriction no greater than 10# in order to promote healing and reduce risk of injury. To be met by 04-21-23. PT COMPREHENSIVE Therapy: Goal met Yes PT Activity Tolerance Description: long-term Goal: Patient to demonstrate increased activity tolerance for 5-10 minutes of gait training as evidenced by a Modified Robert perceived exertion rating of 4/10 or less to facilitate community mobility. To be met by 04-21-23. PT COMPREHENSIVE Therapy: Goal met Yes PT Ambulation Description: Short Term Goal: Patient will ambulate independently x 5 minute duration with use of no AD, over even surfaces and/or uneven surfaces with the following improved gait characteristics no LOB in order to safely ambulate into MD follow up appt. To be met by 04-14-23. Senior Living Goal: Patient will ambulate independently x 10 minute duration with use of no AD, over even surfaces and/or uneven surfaces with the following improved gait characteristics no LOB in order to safely ambulate into MD follow up appt. To be met by 04-21-23. PT COMPREHENSIVE Therapy: Goal met Yes PT HEP Description: Senior Living Goal: Patient and/or caregiver will independently with final HEP of strengthening, balance training, conditioning and core strengthening in order to continue making strength gains , improving balance and improving activity tolerance after discharge from home care. To be met by 04-21-23. PT COMPREHENSIVE Therapy: Goal met Yes Interventions Intervention Associated Problem/Goal Status Variance Visit Notes PT Discharge Problem:PT DISCHARGE/REASSESSMENT Completed Discharge Instructions provided to Patient. Response verbalize understanding. PT Precautions Description: Educate patient on indicated precautions. Problem:PT COMPREHENSIVE Goal:PT Precautions Completed Instructed patient on Sternal precautions - no use of upper extremities for functional mobility, no lifting arms above head, lifting restriction not more than 10 lb. To facilitate ability to maintain precautions while performing gait, transfers, ADLs. Evaluate compliance: compliant Instruction provided to Patient. Response verbalize understanding. Progress toward goal: met PT Ambulation Description: Provide gait training for increased safety and efficiency. Progress per patient tolerance and safety. Problem:PT COMPREHENSIVE Goal:PT Ambulation Completed Patient ambulated independently indoors x 1:20 minute duration with use of no AD over even surfaces. Pt demos good step length bilaterally with no LOB present. He ambulates slowly and cautiously. SpO2 = 96% on RA post gait, HR = 88 bpm, pt rates SOB as 2/10 on Robert RPE scale. Instruction provided to Patient. Response verbalize understanding. Progress toward goal: met PT HEP Progression Description: Instruct on home exercise program. Progress as tolerated. Problem:PT COMPREHENSIVE Goal:PT HEP Completed Pt has been educated in a LE HEP and has been distributed handouts for reference. PT recommended pt attend cardiac rehab. He will talk to his surgeon about this next week. Instruction provided to Patient. Response verbalize understanding. documented in this encounter Home Health Visit - Actions and Narratives Narratives Released to drive yesterday. PT continues to recommend pt attend cardiac rehab. documented in this encounter Care Teams Applied Anthropologist Relationship Specialty Start Date End Date Doc Jiang MD [address] [place] [id number] PCP - General Family Medicine 03/23/23 documented as of this encounter
--- OUTSIDE RECORDS SUMMARY | 2024-09-27 10:52 | XMS_ITS | Encounter Summary ---
Author Organization [facility] Address [address] [place] [address] Phone Care Team Providers Care Patient Monitor Name Role Phone Doc Jiang MD Primary Care Provider [phone] Reason for Visit * Auth/Cert (Routine) Specialty Diagnoses / Procedures Referred By Contvitor t Referred To Contact Referral ID Status Reason Start Date Expiration Date Visits Re quested Visits Authorized [id number] 1 1 Encounter Details Date Type Department Care Team (Late st Contact Info) Description 04/13/2023 9:30 AM CDT [facility] [address] [place] [address] Anna Marie Barros, SQUEEGEE TENDER [place] PT - HOME VISIT Social History Tobacco [...] Sign Reading Time Taken Comments Blood Pressure 100/58 04/13/2023 9:29 AM CDT Pulse 58 04/13/2023 9:29 AM CDT Temperature 36.5 ??C (97.7 ??F) 04/13/2023 9:29 AM CD T Respiratory Rate 16 04/13/2023 9:29 AM CDT Oxygen Saturation 98% 04/13/2023 9:29 AM CDT Inhaled Oxygen Concentration - - [...] goals the following were identified: 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 Target Date: by 04-21-23 (date) PHYSICAL THERAPY EVALUATION (O) No PT Precautions Description: Bookmaker Map Goal: Patient will demonstrate adherence to sternal precautions - no use of upper extremities for functional mobility, shoulder range of motion restriction no lifting B UE above head, no pushing/no pulling, lifting restriction no greater than 10# in order to promote healing and reduce risk of injury. To be met by 04-21-23. PT COMPREHENSIVE No PT Activity Tolerance Description: jail Goal: Patient to demonstrate increased activity tolerance [...] up appt. To be met by 04-14-23. Bookmaker Map Goal: Patient will ambulate independently x 10 minute duration with use of no AD, over even surfaces and/or uneven surfaces with the following improved gait characteristics no LOB in order to safely ambulate into MD follow up appt. To be met by 04-21-23. PT COMPREHENSIVE No PT HEP Description: Alf Goal: Patient and/or caregiver will independently with [...] (Order Only) Description: Pt was admitted to [facility] on 03/21/23 to undergo a CABG x 4. He has the following precautions : sternal precautions = no pushing/no pulling, no lifting B UE above head, no lifting >10lb. Follow ups : 04/19 - toy stuffer, surgeon - 04/27. Incisions are R leg and L arm. Pt was going to the gym 3x/week prior to this surgery. 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 PMH : CAD, hypertension, GERD, obesity, COPD, diverticulitis, GA, back surgery, L knee surgery. [facility] PT referral received for diagnosis of weakness following CABG x 4. Pt presents with decline in general mobility and functional endurance and overall safety. Pt would benefit from skilled [facility] PT for gait/mobility training with AD prn, balance/endurance training, ther ex, HEP, and pt education. [facility] therapy may check oxygen saturation level [...] indicated precautions. Problem:PT COMPREHENSIVE Goal:PT Precautions Completed Reviewed Sternal precautions - no use of [...] Skilled instruction consisting of increased activity tolerance to 5 minute and 10 minute episode of ambulation and standing activities including steps with Modified Robert perceived exertion rating of 3/10 and no noted SOB post activity with SpO2 of 94% and HR not above 114 bpm. PT Ambulation Description: Provide gait training for increased safety and efficiency. Progress per patient tolerance and safety. Problem:PT COMPREHENSIVE Goal:PT Ambulation Completed Patient ambulated independently for 5 min uration and 10 min dduration with no AD over even and uneven surfaces inside home up and down 5 inside stpes with the following gait characteristics good posture, good or SOB. Modified Robert of 3/10, SpO2 = 94% and HR= 114 bpm. Skills provided: deep breathing technique, instruction monitoring [...] has been doing some of the exercises. Patient patient preformed 5 min of LE recumbent bike with no SOB, SpO2 of 94% and HR = 98 bpm. Therapeutic exercise instruction this date in reclined supine/siting/standing HEP off of provided handouts with 50% performance cues for full ROM, slower pace, correction of movement faults, and engaging core stability by tightening tummy muscles t/o activity. Pt was instructed in and performed 15 reps of LE exercises in supine (AROM) : ankle pumps, quad sets, glute sets, heel slides, hip abd/add, SAQ. Sitting (AROM): included ankle pumps, LAQ's, hip flexion, hip abduction all x 15 reps. Standing (AROM) included heal/toe raises, straight leg hip extension, hip abduction, hamstring curls, single knee marching, and mini squats all x 15 reps. Verbal cues for proper breathing technique, engaging core musculature for support, and slower performance with 3 sec pause at end of range for optimal benefit of exercises - good return demo. He reports mild increase in pain when performing exercises. LE HEP performed to promote improved B LE strength for carry-over into functional mobility. Recommended he perform his LE HEP 2x daily for continued strengthening. Skills provided: ongoing instruction in technique, 15 reps 2 x daily. Home Exercise Program issued provided at this visit Instruction provided to Patient.Therapeutic exercise instruction this date in reclined supine/siting/standing HEP off of provided handouts with 50% performance cues for full ROM, slower pace, correction of movement faults, and engaging core stability by tightening tummy muscles t/o activity. Pt was instructed in and performed 15 reps of LE exercises in supine (AROM) : ankle pumps, quad sets, glute sets, heel slides, hip abd/add, SAQ. Sitting (AROM): included ankle pumps, LAQ's, hip flexion, hip abduction all x 15 reps. Standing (AROM) included heal/toe raises, straight leg hip extension, hip abduction, hamstring curls, single knee marching, and mini squats all x 15 reps. Verbal cues for proper breathing technique, engaging core musculature for support, and slower performance with 3 sec pause at end of range for optimal benefit of exercises - good return demo. He reports mild increase in pain when performing exercises. LE HEP performed to promote improved B LE strength for carry-over into functional mobility. Recommended he perform his LE HEP 2x daily for continued strengthening. Skills provided: ongoing instruction in technique, 15 reps 2 x daily. Home Exercise Program issued provided at this visit Instruction provided to Patient.Therapeutic exercise instruction this date in reclined supine/siting/standing HEP off of provided handouts with 50% performance cues for full ROM, slower pace, correction of movement faults, and engaging core stability by tightening tummy muscles t/o activity. Pt was instructed in and performed 15 reps of LE exercises in supine (AROM) : ankle pumps, quad sets, glute sets, heel slides, hip abd/add, SAQ. Sitting (AROM): included ankle pumps, LAQ's, hip flexion, hip abduction all x 15 reps. Standing (AROM) included heal/toe raises, straight leg hip extension, hip abduction, hamstring curls, single knee marching, and mini squats all x 15 reps. Verbal cues for proper breathing technique, engaging core musculature for support, and slower performance with 3 sec pause at end of range for optimal benefit of exercises - good return demo. He reports mild increase in pain when performing exercises. LE HEP performed to promote improved B LE strength for carry-over into functional mobility. Recommended he perform his LE HEP 2x daily for continued strengthening. Standing (AROM) included heal/toe raises, straight leg hip extension, hip abduction, hamstring curls, single knee marching, and mini squats all x 15 reps. Verbal cues for proper breathing technique, engaging core musculature for support, and slower performance Skills provided: ongoing instruction in technique with standidng HEP 20 reps 2 x daily. Home Exercise Program issued provided at this visit Instruction provided to Patient. Instruction provided to Patient. Response verbalize understanding documented in this encounter Care Teams Patient Monitor Relationship Specialty Start Date End Date Doc Jiang MD [address] [place] [id number] PCP - General Family Medicine 03/23/23 documented as of this encounter
--- OUTSIDE RECORDS SUMMARY | 2024-09-27 10:52 | XMS_ITS | Encounter Summary ---
Author Organization [facility] [employer] [facility] Care Team Providers Care Draw Press Operator Name Role Phone Doc Jiang MD Primary Care Provider [phone] Encounter Details Date Type Department Care Team (Latest Contact Info) Description 04/13/2023 Travel Social History Tobacco Use Types Packs/Day [...] on filedocumented in this encounter Care Teams Draw Press Operator Relationship Specialty Start Date End Date Doc Jiang MD [address] [place] [address] PCP - General Family Medicine 03/23/23 documented as of this encounter
--- OUTSIDE RECORDS SUMMARY | 2024-09-27 10:52 | XMS_ITS | Encounter Summary ---
Author Organization [facility] Address [address] [place] [address] Phone Care Team Providers Care Prescriptionist Name Role Phone Doc Jiang MD Primary Care Provider [phone] Reason for Visit * Auth/Cert (Routine) Specialty Diagnoses / Procedures Referred By Contvitor t Referred To Contact Referral ID Status Reason Start Date Expiration Date Visits Re quested Visits Authorized [id number] 1 1 Encounter Details Date Type Department Care Team (Late st Contact Info) Description 04/11/2023 [facility] [address] [place] [address] Siddharth Castro, RN [place] TELEPHONE ENCOUNTER Social [...] Health Visit - Actions and Narratives Actions Call to Janice English APRN at the Cardiac Surgeon's office with [facility]. Notifed that right leg has increased bruising from thigh to calf. Calf bruising is deeper purple than before. Nurse to call back. documented in this encounter Care Teams Prescriptionist Relationship Specialty Start Date End Date Doc Jiang MD [address] [place] [address] PCP - General Family Medicine 03/23/23 documented as of this encounter
--- OUTSIDE RECORDS SUMMARY | 2024-09-27 10:52 | XMS_ITS | Encounter Summary ---
Author Organization [facility] [employer] Care Team Providers Care Talkback Host Name Role Phone Doc Jiang MD Primary Care Provider [phone] Encounter Details Date Type Department Care Team (Latest Contact Info) Description 04/11/2023 Travel Social History Tobacco Use Types Packs/Day [...] on filedocumented in this encounter Care Teams Talkback Host Relationship Specialty Start Date End Date Doc Jiang MD [address] [place] [address] PCP - General Family Medicine 03/23/23 documented as of this encounter
--- OUTSIDE RECORDS SUMMARY | 2024-09-27 10:53 | XMS_ITS | Encounter Summary ---
Author Organization [facility] Address [address] [place] [address] Phone Care Team Providers Care Shadow Graph Weight Operator Name Role Phone Doc Jiang MD Primary Care Provider [phone] Reason for Visit * Auth/Cert (Routine) Specialty Diagnoses / Procedures Referred By Contac t Referred To Contact Referral ID Status Reason Start Date Expiration Date Visits Re quested Visits Authorized [id number] 1 1 Encounter Details Date Type Department Care Team (Latest Contact Info) Description 04/03/2023 11:00 AM CDT Home Care Visit [facility] [address] [place] [address] Juanjose Paz CNA [place] BIT SHARPENER OPERATOR - HOME VISIT Social History Tobacco Use [...] suspected to have Coronavirus/COVID-19? No / Unsure 04/03/2023 9:44 AM CDT documented as of this encounter Plan of Treatment Not on file documented as of this encounter Visit Diagnoses Not on filedocumented in this encounter Care Teams Shadow Graph Weight Operator Relationship Specialty Start Date End Date Doc Jiang MD [address] [place] [address] PCP - General Family Medicine 03/23/23 documented as of this encounter
--- OUTSIDE RECORDS SUMMARY | 2024-09-27 10:53 | XMS_ITS | Encounter Summary ---
Author Organization [facility] Address [address] [place] [address] Phone Care Team Providers Care Land Reclamation Specialist Name Role Phone Doc Jiang MD Primary Care Provider [phone] Encounter Details Date Type Department Care Team (Late st Contact Info) Description 03/30/2023 [facility] [address] [place] [address] Wandy Shankar, RN TELEPHONE ENCOUNTER Social History Tobacco Use Types [...] Health Visit - Actions and Narratives Narratives SN spoke with patient's spou se Rosenbaum and they would like [facility] to admit on 03/31/23. documented in this encounter Care Teams Land Reclamation Specialist Relationship Specialty Start Date End Date Doc Jiang MD [address] [place] [address] PCP - General Family Medicine 03/23/23 documented as of this encounter
--- OUTSIDE RECORDS SUMMARY | 2024-09-27 10:53 | XMS_ITS | Encounter Summary ---
Author Organization [facility] [employer] Care Team Providers Care Solar Photovoltaic Crew Lead Name Role Phone Doc Jiang MD Primary Care Provider [phone] Encounter Details Date Type Department Care Team (Latest Contact Info) Description 04/03/2023 Travel Social History Tobacco Use Types Packs/Day [...] on filedocumented in this encounter Care Teams Solar Photovoltaic Crew Lead Relationship Specialty Start Date End Date Doc Jiang MD [address] [place] [address] PCP - General Family Medicine 03/23/23 documented as of this encounter
--- OUTSIDE RECORDS SUMMARY | 2024-09-27 10:53 | XMS_ITS | Encounter Summary ---
Author Organization [facility] Address [address] [place] [address] Phone Care Team Providers Care Mobile Device Engineer Name Role Phone Doc Jiang MD Primary Care Provider [phone] Encounter Details Date Type Department Care Team (Late st Contact Info) Description 03/31/2023 Plan of Care [facility] [address] [place] [address] Social History Tobacco Use Types Packs/Day Years [...] suspected to have Coronavirus/COVID-19? No / Unsure 03/31/2023 8:52 AM CDT documented as of this encounter Plan of Treatment Not on file documented as of this encounter Visit Diagnoses Not on filedocumented in this encounter Care Teams Mobile Device Engineer Relationship Specialty Start Date End Date Doc Jiang MD [address] [place] [address] PCP - General Family Medicine 03/23/23 documented as of this encounter
--- OUTSIDE RECORDS SUMMARY | 2024-09-27 10:53 | XMS_ITS | Encounter Summary ---
Author Organization [facility] [employer] Care Team Providers Care Control Cabinet Assembler Name Role Phone Doc Jiang MD Primary Care Provider [phone] Encounter Details Date Type Department Care Team (Latest Contact Info) Description 03/31/2023 Travel Social History Tobacco Use Types Packs/Day [...] on filedocumented in this encounter Care Teams Control Cabinet Assembler Relationship Specialty Start Date End Date Doc Jiang MD [address] [place] [address] PCP - General Family Medicine 03/23/23 documented as of this encounter
--- OUTSIDE RECORDS SUMMARY | 2024-09-27 10:53 | XMS_ITS | Encounter Summary ---
Author Organization [facility] Address [address] [place] [address] Phone Care Team Providers Care Hydro Excavation Operator Name Role Phone Doc Jiang MD Primary Care Provider [phone] Reason for Visit * Auth/Cert (Routine) Specialty Diagnoses / Procedures Referred By Contac t Referred To Contact Referral ID Status Reason Start Date Expiration Date Visits Re quested Visits Authorized [id number] 1 1 Encounter Details Date Type Department Care Team (Late st Contact Info) Description 04/04/2023 [facility] [address] [place] [address] Juanjose Paz CNA ID CARE CONFERENCE Social History Tobacco Use Types Packs/Day Years [...] on filedocumented in this encounter Care Teams Hydro Excavation Operator Relationship Specialty Start Date End Date Doc Jiang MD [address] [place] [address] PCP - General Family Medicine 03/23/23 documented as of this encounter
--- OUTSIDE RECORDS SUMMARY | 2024-09-27 10:53 | XMS_ITS | Encounter Summary ---
Author Organization [facility] Address [address] [place] [address] Phone Care Team Providers Care Physician Liaison Name Role Phone Doc Jiang MD Primary Care Provider [phone] Reason for Visit * Auth/Cert (Routine) Specialty Diagnoses / Procedures Referred By Contvitor t Referred To Contact Referral ID Status Reason Start Date Expiration Date Visits Re quested Visits Authorized [id number] 1 1 Encounter Details Date Type Department Care Team (Late st Contact Info) Description 04/04/2023 8:00 AM CDT [facility] [address] [place] [address] Siddharth Castro, RN [place] DISEASE MGT PHONE Social History Tobacco Use Types Packs/Day Years [...] on filedocumented in this encounter Care Teams Physician Liaison Relationship Specialty Start Date End Date Doc Jiang MD [address] [place] [address] PCP - General Family Medicine 03/23/23 documented as of this encounter
--- OUTSIDE RECORDS SUMMARY | 2024-09-27 10:53 | XMS_ITS | Encounter Summary ---
Author Organization [facility] Address [address] [place] [address] Phone Care Team Providers Care Innovation Manager Name Role Phone Doc Jiang MD Primary Care Provider [phone] Encounter Details Date Type Department Care Team (Latest Contact Info) Description 04/03/2023 Lab Requisition [facility] [address] [place] [address] Deon Castillo MD [address] [id number] 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 Social History Tobacco Use Types Packs/Day Years [...] Procedure Name Priority Date/Time Associated Diagnosis Comments CBC WITH AUTO DIFFERENTIAL Routine 04/03/2023 12:00 PM CDT 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 CMP (COMPREHENSIVE METABOLIC PANEL) Routine 04/03/2023 12:00 PM CDT 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0 - 50.0 % 04/03/2023 2:26 PM CDT [facility] MCV 93.6 82.0 - 96.0 fL 04/03/2023 2:26 PM CDT [facility] MCH 29.6 26.0 - 32.0 pg 04/03/2023 2:26 PM CDT [facility] MCHC 31.6 31.0 - 36.0 g/dL 04/03/2023 2:26 PM CDT [facility] PLATELET COUNT 496(H) 140 - 440 10(3)/mcL 04/03/2023 2:26 PM CDT [facility] RDW 13.8 11.8 - 15.5 % 04/03/2023 2:26 PM CDT [facility] MPV 9.0 8.0 - 12.6 fL 04/03/2023 2:26 PM CDT [facility] NEUTROPHILS 73.9(H) 40.0 - 68.0 % 04/03/2023 2:26 PM CDT [facility] LYMPHOCYTES 18.7(L) 19.0 - 49.0 % 04/03/2023 2:26 PM CDT [facility] MONOCYTES 5.4 3.0 - 13.0 % 04/03/2023 2:26 PM CDT [facility] EOSINOPHILS 1.5 0.0 - 8.0 % 04/03/2023 2:26 PM CDT [facility] BASOPHILS 0.5 0.0 - 1.0 % 04/03/2023 2:26 PM CDT [facility] ABSOLUTE NEUTROPHILS 8.82(H) 1.40 - 5.30 10(3)/mcL 04/03/2023 2:26 PM CDT [facility] ABSOLUTE LYMPHOCYTES 2.24 0.90 - 3.30 10(3)/[facility] 04/03/2023 2:26 PM CDT [facility] ABSOLUTE MONOCYTES 0.65 0.10 - 0.90 10(3)/mcL 04/03/2023 2:26 PM CDT [facility] ABSOLUTE EOSINOPHIL 0.18 0.00 - 0.50 10(3)/[facility] 04/03/2023 2:26 PM CDT [facility] ABSOLUTE BASOPHILS 0.06 0.00 - 0.10 10(3)/[facility] 04/03/2023 2:26 PM CDT [facility] NRBC PER 100 WBC 0 04/03/20 2:26 PM CDT [facility] Blood No Phlebotomy Charged / Unknown 04/03/2023 12:00 PM CDT 04/03/2023 1:51 PM CDT us Deon Castillo MD HEMATOLOGY ORDERABLES Final Resu lt [facility] [address] [place] [address] * (ABNORMAL) CMP (COMPREHENSIVE METABOLIC PANEL) (04/03/2023 12:00 PM CDT) SODIUM 138 136 - 144 mmol/L 04/03/2023 2:26 PM CDT [facility] POTASSIUM 4.1 3.5 - 5.1 mmol/L 04/03/2023 2:26 PM CDT [facility] CHLORIDE 100 100 - 110 mmol/L 04/03/2023 2:26 PM [facility] CO2, VENOUS 22 22 - 32 mmol/L 04/03/2023 2:26 PM [facility] ANION GAP 20.1(H) 8.0 - 20.0 mmol/L 04/03/2023 2:26 PM T [facility] GLUCOSE 103(H) 70 - 99 mg/dL 04/03/2023 2:26 PM T [facility] BUN 16 6 - 20 mg/dL 04/03/2023 2:26 PM [facility] CREATININE, BLOOD 0.90 0.80 - 1.30 mg/dL 04/03/2023 2:26 PM [facility] BUN/CREATININE RATIO 18 12 - 20 ratio 04/03/2023 2:26 PM [facility] TOTAL PROTEIN 7.4 6.0 - 8.3 g/dL 04/03/2023 2:26 PM [facility] ALBUMIN 4.0 3.5 - 5.2 g/dL 04/03/2023 2:26 PM [facility] Comment: The colormetric methods used for the determination of Albumin may lead to falsely elevated test results in patients suffering from renal failure or insufficiency due to interference with other proteins. A/G RATIO 1.2 1.0 - 2.0 04/03/2023 2:26 PM [facility] CALCIUM 9.8 8.9 - 10.3 mg/dL 04/03/2023 2:26 PM [facility] T BILI 0.4 <=1.2 mg/dL 04/03/2023 2:26 PM [facility] SGOT (AST) 17 <=40 U/L 04/03/2023 2:26 PM [facility] SGPT (ALT) 17 <=41 U/L 04/03/2023 2:26 PM CDT [facility] ALKALINE PHOSPHATASE 104 40 - 130 U/L 04/03/2023 2:26 PM CDT [facility] GFR, ESTIMATED >60 >=60 04/03/2023 2:26 PM CDT [facility] Comment: Creatinine Clearance is the preferred criteria for selecting drug dose adjustments in renally impaired patients. ??The GFR is provided as additional pertinent clinical information. GFR is reported in mL/min/1.73 sq m. Calculation based on the Chronic Kidney Disease Epidemiology Collaboration (CKD- EPI) equation refit without adjustment for race. GFR, EST. >60 >=60 023 2:26 PM CDT [facility] GFR, EST. NONAFRICAN >60 >=60 04/03/2023 2:26 PM CDT [facility] Blood No Phlebotomy Charged / Unknown 04/03/2023 12:00 PM CDT 04/03/2023 1:51 PM CDT us Deon Castillo MD CHEMISTRY ORDERABLES Final Resul t [facility] [address] [place] [address] documented in this encounter Visit Diagnoses Diagnosis 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 Coronary atherosclerosis of iliam[place] coronary artery documented in this encounter Care Teams Innovation Manager Relationship Specialty Start Date End Date Doc Jiang MD [address] [place] [address] PCP - General Family Medicine 03/23/23 documented as of this encounter
--- OUTSIDE RECORDS SUMMARY | 2024-09-27 10:53 | XMS_ITS | Encounter Summary ---
Author Organization [facility] Address [address] [place] [address] Phone Care Team Providers Care Dyeing Machine Feeder Name Role Phone Doc Jiang MD Primary Care Provider [phone] Reason for Visit * Auth/Cert (Routine) Specialty Diagnoses / Procedures Referred By Contvitor t Referred To Contact Referral ID Status Reason Start Date Expiration Date Visits Re quested Visits Authorized [id number] 1 1 Encounter Details Date Type Department Care Team (Late st Contact Info) Description 04/04/2023 11:00 AM CDT Home Care Visit [facility] [address] [place] [address] Ca Shepherd OT OT - INITIAL EVALUATION Social History Tobacco Use Types Packs/Day Years [...] Sign Reading Time Taken Comments Blood Pressure 100/60 04/04/2023 11:28 AM CDT Pulse 108 04/04/2023 11:34 AM CDT Temperature 35.8 ??C (96.4 ??F) 04/04/2023 11:28 AM C DT Respiratory Rate 18 04/04/2023 11:28 AM CDT Oxygen Saturation 94% 04/04/2023 11:34 AM CDT room air Inhaled Oxygen Concentration - - Weight 93 kg (205 lb) 04/04/2023 11:28 AM CDT Height 175.3 cm (5' 9 ) 04/04/2023 11:28 AM CDT Body Mass Index 30.27 04/04/2023 11:28 AM CDT documented in this encounter Plan of Treatment Not on file documented as of this encounter Visit Diagnoses Not on filedocumented in this encounter Home Health Visit - Care Plan Visit Details Visit Type -OT - INITIAL KRISTOPHER LUATION Discipline -Occupational Therapy Problems Problem Description Start Date Status Goals Interve ntions OCCUPATIONAL THERAPY EVAL ONLY (O) Disciplines: Occupational Therapy 04/04/2023 Resolved on 04/04/2023 - 1 problem intervention scheduled/documented in this visit Interventions Intervention Associated Problem/Goal Status Variance Visit Notes OT Eval Only (O) Description: Clinical Findings: 52 y/o male admitted to [facility] on 03/21/23 to undergo a CABG x 4. He has the following precautions : sternal precautions = no pushing/no pulling, no lifting B UE above head, no lifting >10lb. 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 Incisions are R leg and L arm. Pt was going to the gym 3x/week prior to this surgery. 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 PMH : CAD, hypertension, GERD, obesity, COPD, diverticulitis, UT, back surgery, L knee surgery. Pt. is independent with ADLs and bathroom transfers. Occupational Therapist recommendation: No further [facility] OT recommendat at this time. Patient verbalized understanding and is in agreement with this plan: yes Perform pulse oximetry PRN for intermittent assessment and/ or respiratory distress. Problem:OCCUPATIONAL THERAPY EVAL ONLY (O) Completed Occupational Therapy evaluation completed, see order text for findings. Medication reconciliation performed yes. Needs/ changes identified: no. -Action taken: no action required. Vital signs outside of ordered parameters? no Physician notified? no. Homebound Criteria 1- Patient has illness/injury: CABG x 4 , and needs/has: help of another person to leave home due to dyspnea with exertion Homebound Criteria 2- Inability to leave the home and leaving the home requires a taxing and considerable effort due to: dyspnea with ambulation greater than 20 feet and leaving home exacerbates symptoms shortness of breath and fatigue documented in this encounter Care Teams Dyeing Machine Feeder Relationship Specialty Start Date End Date Doc Jiang MD [address] [place] [id number] PCP - General Family Medicine 03/23/23 documented as of this encounter
--- OUTSIDE RECORDS SUMMARY | 2024-09-27 10:53 | XMS_ITS | Encounter Summary ---
Author Organization [facility] Address [address] [place] [address] Phone Care Team Providers Care Business Services Tech Name Role Phone Doc Jiang MD Primary Care Provider [phone] Encounter Details Date Type Department Care Team (Late st Contact Info) Description 03/28/2023 [facility] [address] [place] [address] Siddharth Castro, RN [place] CASE COMMUNICATION Social History Tobacco Use Types Packs/Day Years [...] in this encounter Care Teams Business Services Tech Relationship Specialty Start Date End Date Doc Jiang MD [address] [place] [address] PCP - General Family Medicine 03/23/23 documented as of this encounter
--- OUTSIDE RECORDS SUMMARY | 2024-09-27 10:53 | XMS_ITS | Encounter Summary ---
Author Organization [facility] Address [address] [place] [address] Phone Care Team Providers Care Senior Sales Operations Analyst Name Role Phone Doc Jiang MD Primary Care Provider Reason for Visit * Auth/Cert (Routine) Specialty Diagnoses / Procedures Referred By Contvitor t Referred To Contact Referral ID Status Reason Start Date Expiration Date Visits Re quested Visits Authorized [id number] 1 1 Encounter Details Date Type Department Care Team (Late st Contact Info) Description 04/03/2023 9:30 AM CDT Home Care Visit [facility] [address] [place] [address] Shayna Yee, PT PT - INITIAL EVALUATION Social History Tobacco Use [...] Sign Reading Time Taken Comments Blood Pressure 100/66 04/03/2023 9:50 AM CDT Pulse 66 04/03/2023 9:50 AM CDT Temperature 36.4 ??C (97.5 ??F) 04/03/2023 9:50 AM CD T Respiratory Rate 18 04/03/2023 9:50 AM CDT Oxygen Saturation 96% 04/03/2023 9:50 AM CDT Inhaled Oxygen Concentration - - Weight 93 kg (205 lb) 04/03/2023 9:50 AM CDT Height - - Body Mass Index - - documented in this encounter Plan of Treatment Not on file documented as of this encounter Visit Diagnoses Not on filedocumented in this encounter Care Teams Senior Sales Operations Analyst Relationship Specialty Start Date End Date Doc Jiang MD [address] [place] [address] PCP - General Family Medicine 03/23/23 documented as of this encounter
--- OUTSIDE RECORDS SUMMARY | 2024-09-27 10:53 | XMS_ITS | Encounter Summary ---
Author Organization [facility] Address [address] [place] [address] Phone Care Team Providers Care Director Of Strategic Communications Name Role Phone Doc Jiang MD Primary Care Provider [phone] Reason for Visit * Auth/Cert (Routine) Specialty Diagnoses / Procedures Referred By Sue t Referred To Contact Referral ID Status Reason Start Date Expiration Date Visits Re quested Visits Authorized [id number] 1 1 Encounter Details Date Type Department Care Team (Late st Contact Info) Description 04/03/2023 9:00 AM CDT Home Care Visit [facility] [address] [place] [address] Siddharth Castro, RN [place] SN - LAB Social History Tobacco Use Types Packs/Day Years [...] Time Taken Comments Blood Pressure 100/66 04/03/2023 9:30 AM CDT Pulse 80 04/03/2023 9:30 AM CDT Temperature 36.7 ??C (98.1 ??F) 04/03/2023 9:30 AM CD T Respiratory Rate 18 04/03/2023 9:30 AM CDT Oxygen Saturation 95% 04/03/2023 9:30 AM CDT Inhaled Oxygen Concentration - - Weight 93 kg (205 lb) 04/03/2023 9:30 AM CDT Height - - Body Mass Index - - documented in this encounter Plan of Treatment Not on file documented as of this encounter Visit Diagnoses Not on filedocumented in this encounter Home Health Visit - Care Plan Visit Details Visit Type -SN - Lab Discipline -Chcf Problems Problem Description Start Date Status Goals Interve ntions POST OPERATIVE Disciplines: Chcf Post OP General 03/31/2023 Active 1 goal linked to scheduled/documen tremayne intervention 1 goal intervention scheduled/document ed in this visit PAIN-MANAGEMENT /EDUCATION Disciplines: Skilled Clinicians 03/31/2023 Active 1 goal linked to scheduled/documen tremayne intervention 1 goal intervention scheduled/document ed in this visit SN GENERAL ORDERS Disciplines: Chcf SN General Orders 03/31/2023 Active 1 goal linked to scheduled/documen tremayne intervention 2 goal interventions scheduled/document ed in this visit WOUND CARE EDUCATION Disciplines: Chcf Wound Care Education 03/31/2023 Active - 1 problem intervention scheduled/document ed in this visit WOUND CARE ORDERS(O) Disciplines: Chcf Wound Care Orders 03/31/2023 Active 1 goal [...] S/S pain, actions to take with abnormal findings and Temperature- Report temperature greater than 100.0 F Instruction provided to Patient and Caregiver. Response verbalize understanding. Pain Management/Education (O) Description: [...] adult children. He was recently admitted to [facility] after a cardiac cath. Pt was found to be in need of CABGx4 at [facility]. Pt is now home. He [...] not ordered Social Work Focus: not ordered Edger Machine Setter to provide: not ordered Past Medical History: [...] complications noted at this visit: none Wound Education - All Wounds Problem:WOUND CARE EDUCATION Patient and Caregiver instructed on wound care including signs and symptoms to report, packing safety, wound care procedure. Agrees to perform wound treatment as ordered on non-visit days. Instruction provided to Patient and Caregiver. Response verbalize understanding. Wound Care (O) Description: Wound Number 1-5. [...] report. Problem:WOUND CARE ORDERS(O) Goal:Wound Care Scheduled incisions left open to air documented in this encounter Home Health Visit - Actions and Narratives Actions call from Dr. Jiang's office . SPoke with Felisha. will follow and sign orders for services. documented in this encounter Care Teams Director Of Strategic Communications Relationship Specialty Start Date End Date Doc Jiang MD [address] [place] [id number] PCP - General Family Medicine 03/23/23 documented as of this encounter
--- OUTSIDE RECORDS SUMMARY | 2024-09-27 10:53 | XMS_ITS | Encounter Summary ---
Author Organization [facility] Address [address] [place] [address] Phone Care Team Providers Care Back Filler Operator Name Role Phone Doc Jiang MD Primary Care Provider [phone] Reason for Visit * Auth/Cert (Routine) Specialty Diagnoses / Procedures Referred By Sue t Referred To Contact Referral ID Status Reason Start Date Expiration Date Visits Re quested Visits Authorized [id number] 1 1 Encounter Details Date Type Department Care Team (Latest Contact Info) Description 03/31/2023 9:00 AM CDT Home Care Visit [facility] [address] [place] [address] Siddharth Castro, RN [place] SN - [place]ASIS START OF CARE Social History Tobacco Use Types Packs/Day Years [...] Sign Reading Time Taken Comments Blood Pressure 114/68 03/31/2023 12:00 AM CDT Pulse 97 03/31/2023 12:00 AM CDT Temperature 36.6 ??C (97.8 ??F) 03/31/2023 12:00 AM C DT Respiratory Rate 18 03/31/2023 12:00 AM CDT Oxygen Saturation 98% 03/31/2023 12:00 AM CDT Inhaled Oxygen Concentration - - Weight 94.1 kg (207 lb 6.4 oz) 03/31/2023 12:00 AM CDT Height - - Body Mass Index - - documented in this encounter Plan of Treatment Not on file documented as of this encounter Visit Diagnoses Not on filedocumented in this encounter Home Health Visit - Care Plan Visit Details Visit Type -SN - OASIS START OF CARE Discipline -Fpc Problems Problem Description Start Date Status Goals Interve ntions POST OPERATIVE Disciplines: Fpc Post OP General 03/31/2023 Active 1 goal linked to scheduled/documen tremayne intervention 1 goal intervention scheduled/document ed in this visit PAIN-MANAGEMENT /EDUCATION Disciplines: Skilled Clinicians 03/31/2023 Active 1 goal linked to scheduled/documen tremayne intervention 1 goal intervention scheduled/document ed in this visit SN GENERAL ORDERS Disciplines: Fpc SN General Orders 03/31/2023 Active 1 goal linked to scheduled/documen tremayne intervention 2 goal interventions scheduled/document ed in this visit WOUND CARE EDUCATION Disciplines: Fpc Wound Care Education 03/31/2023 Active - 1 problem intervention scheduled/document ed in this visit WOUND CARE ORDERS(O) Disciplines: Fpc Wound Care Orders 03/31/2023 Active 1 goal linked to scheduled/documen tremayne intervention 1 goal intervention scheduled/document ed in this visit HYPERTENSION ORDERS Disciplines: Fpc 03/31/2023 Active 1 goal linked to scheduled/documen [...] 05/01/23 (date) WOUND CARE ORDERS(O) No Hypertension HYPERTENSION ORDERS No Interventions Intervention Associated Problem/Goal [...] assist with focus. Instruction provided rest, relaxation Instruction provided to Patient. Response verbalize understanding. [...] adult children. He was recently admitted to [place] after a cardiac cath. Pt was found to be in need of CABGx4 at [facility]. Pt is now home. He [...] not ordered Social Work Focus: not ordered Skin Diving Teacher to provide: not ordered Past Medical History: [...] - All Wounds Problem:WOUND CARE EDUCATION Patient instructed on wound care including signs and symptoms to report, packing safety, wound care procedure. Agrees to perform wound treatment as ordered on non-visit days. Instruction provided to Patient. Response verbalize understanding. Wound Care (O) Description: [...] report. Problem:WOUND CARE ORDERS(O) Goal:Wound Care Scheduled wound left open to air Hypertension (O) Problem:HYPERTENSION ORDERS Goal:Hypertension Hypertension education provided: Self-management- [...] understanding. documented in this encounter Care Teams Back Filler Operator Relationship Specialty Start Date End Date Doc Jiang MD [address] [place] [address] PCP - General Family Medicine 03/23/23 documented as of this encounter
== END 2024-09-25 17:15 | disposition home or self-care (01) | DRG 988 ==
LOC: ANHED 09-20 06:24 → ANHIMU 09-20 07:42 → ANH3MEDSUR 09-24 21:27
PROVIDERS: Internal Medicine; Nurse Practitioner Adult Health; Surgery; Admitting Provider Internal Medicine; Emergency Provider Emergency Medicine; PCP Family Medicine; Visit Provider Internal Medicine
PROC: 4A023N7 Measurement of Cardiac Sampling and Pressure, Left Heart, Percutaneous Approach (ICD-10-PCS; CPT 93459; principal; 2024-09-20 12:00)
PROC: 0FT44ZZ Resection of Gallbladder, Percutaneous Endoscopic Approach (ICD-10-PCS; CPT 47562; principal; 2024-09-24 12:30)
DX: I21.4 Non-ST elevation (NSTEMI) myocardial infarction (principal); K80.00 Calculus of gallbladder with acute cholecystitis without obstruction; T82.855A Stenosis of coronary artery stent, initial encounter; K82.A1 Gangrene of gallbladder in cholecystitis; I25.10 Atherosclerotic heart disease of native coronary artery without angina pectoris; I71.43 Infrarenal abdominal aortic aneurysm, without rupture; J44.9 Chronic obstructive pulmonary disease, unspecified; I10 Essential (primary) hypertension; E78.5 Hyperlipidemia, unspecified; Z87.891 Personal history of nicotine dependence; Z95.1 Presence of aortocoronary bypass graft; Z95.5 Presence of coronary angioplasty implant and graft; E66.9 Obesity, unspecified; Z68.34 Body mass index [BMI] 34.0-34.9, adult
CPT/HCPCS: 36415; 71046; 71275; 74174; 76705; 78226; 80048; 80053; 82150; 83690; 84484; 85025; 85610; 85730; 88304; 93005; 93459; 96374; 96375; 96376; 99285; A9270; A9537; C1769; C1887; C1894; C8929; G0378; J0690; J1171; J1644; J1650; J2003; J2250; J2305; J2405; J2704; J3010; J7040; J7120; Q9957; Q9967

== ENCOUNTER 2025-07-08 18:59 | Emergency (ER) | payer BC, SELFPAY ==
--- OUTSIDE RECORDS SUMMARY | 2025-04-02 02:30 | XMS_ITS ---
Author Organization [facility] Address [address] [place] [address] PRINCE Jarvis [address] Care Team Providers Care Foot Worker Name Role Phone ALONSO ARMAS MD Primary Care Provider Rudy Galvez Unavailable [phone] ALLERGIES Allergen (clinical drug ingredient) Drug/Non Drug Allergy documented on EMR Reaction Allergy Type Onset Date Status Cortisone Anaphylaxis Drug Allergy Activ e metronidazole Metronidazole rash Drug Allergy Active REASON FOR VISIT Follow Up, Right > Left Low Back Pain, Right = Left Lower Extremity Pain MEDICATIONS Medication SIG (Take, Route, Frequency, Duration) Notes Start Date End Date Status Doxycycline Hyclate 100 MG 1 tablet Oral ly every 12 hrs for 7 days 02/23/2023 Active Xarelto 2.5 MG 1 tablet Oral Once a day Active Ezetimibe 10 MG 1 tablet Oral Once a day Active Metoprolol Tartrate 25 MG 1 tablet with food Oral Twice a day Active Jardiance 10 MG 1 tablet Oral Once a day Active Furosemide 20 MG 1 tablet Oral Once a day Active Symbicort 160-4.5 MCG/ACT 1 puff as need ed Inhalation every 4 hrs Active Incruse Ellipta 62.5 MCG/INH 1 puff Inha lation Once a day Active Chlorhexidine Gluconate 4 % as directed Externally Wash with solution the night before your procedure and the morning of your procedure 02/23/2023 Active Combivent Respimat 20-100 MCG/ACT 1 puff as needed Inhalation every 6 hrs Active Nitroglycerin 0.4 MG as directed Subling ual Once a day Active Lisinopril 10 MG 1 tablet Orally Once a day Active Carvedilol 3.125 MG 1 tablet with food Orally Twice a day Active Atorvastatin Calcium 40 MG 1 tablet Oral ly Once a day Active Lasix 40 MG 1 tablet Orally Once a day Active Belbuca 75 MCG 1 film Bucally every 12 hrs for 30 days 04/02/2025 Active Aspirin Low Dose 81 MG TAKE 1 TABLET BY MOUTH EVERY MORNING Oral for 30 Active Lyrica 75 MG 1 capsule Orally CALI RY 12 HOURS for 30 days 12/02/2024 Active Meloxicam 7.5 MG 1 tablet Orally Once a day Active Relistor 150 MG 3 tablets 30 minutes before the first meal of the day Orally Once a day for 30 day(s) 09/17/2020 Active tiZANidine HCl 2 MG 1 tablet as needed Orally twice daily prn muscle spasms for 30 days Active Narcan 4 MG/0.1ML 1 actuation in one nostril x1, Nasally 2-3 minutes as needed until the patient is responsive or EMS arrives Active SOCIAL HISTORY Tobacco Use: Social History Observation Description Date Details (start date - stop date) Former Smoker NA - NA Sex Assigned At : Social History Observation Description Sex Assigned At Unknown Tobacco Use/Smoking Question Answer Notes Are you a former smoker How long has it been since you last smoked? 1-3 months Section Notes: Patient is employed full [employer]. He is . He has 4 children and reports good support system at home. He quit cigarettes 1 month ago. He denies alcohol or illicit drug abuse. VITAL SIGNS Blood pressure systolic 112 mm Hg 04/02/20 25 Blood pressure diastolic 80 mm Hg 025 Heart Rate 73 /min 04/02/2025 Respiratory Rate 18 /min 04/02/2025 Height 5 ft 9 in in 04/02/2025 Weight 205 lbs 04/02/2025 BMI 30.27 kg/m2 04/02/2025 Encounters Encounter Location Date Provider Diagnosis [facility] [address] [facility] [place] [address] 04/02/2025 Rudy Parnell Radiculopathy, lumba r region M54.16 ; Postlaminectomy syndrome, not elsewhere classified M96.1 ; Radiculopathy, lumbosacral region M54.17 ; Spondylosis without myelopathy or radiculopathy, lumbar region M47.816 and intermodal dispatcher (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 The [place] and [place] PDMP were reviewed and were appropriate 04/02/2025 Radiculopathy, lumbosacral region (ICD-10 - M54.17) 04/02/2025 Spondylosis without myelopathy or radiculopathy, lumbar region (ICD-10 - M47.816) 04/02/2025 intermodal dispatcher (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 (ICD-10 - Z79.891) The patient submitted a urine sample for drug screening to ensure compliance. 04/02/2025 Other The above-named patient was evaluated in [...] Bucally every 12 hrs for 30 days 05/2025 Treatment Notes Assessment Notes Postlaminectomy syndrome, no [...] to fully comply with the above. The [place] and [place] PDMP were reviewed and were appropriate intermodal dispatcher (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 of o piate analgesic The patient submitted a urine sample for drug screening to ensure compliance. Other The above-named patient was evaluated in [...] OPV, Reas on: Provider Name:Rudy Melia coelho, 07/31/2025 07:30:00 AM, [address] [place], [address], Progress Notes * Examination Category Sub-Category Detail Notes Category Not es Examination/ Pre-Anesthesia Assessment General: : The patient is alert and o riented X 3 in moderate distress decondary to pain UDS 12/30/24 -compliant (THC card recipient) Belbuca, Lyrica, tizanidine not tested or not quantified by lab r/t insurance HEENT: : Normocephalic, atr aumatic. PERRL. The [...] of Present Illness) Category Sub-Category Detail Notes Category Not es Pain Management Radiographic Imaging MRI of the [...] posterior S1 vertebral body. Prior right laminectomy. [id number] left and severe right neuroforaminal stenosis. Facet arthropathy. Assessment and Follow-up: Follow-up Plan documen tremayne:: Yes
--- OUTSIDE RECORDS SUMMARY | 2025-04-30 02:30 | XMS_ITS ---
Author Organization [facility] Address [address] [place] [address] PRINCE Jarvis [address] Care Team Providers Care Preschool Substitute Teacher Name Role Phone ALONSO ARMAS MD Primary Care Provider Rudy Galvez Unavailable [phone] ALLERGIES Allergen (clinical drug ingredient) Drug/Non Drug Allergy documented on EMR Reaction Allergy Type Onset Date Status Cortisone Anaphylaxis Drug Allergy Activ e metronidazole Metronidazole rash Drug Allergy Active REASON FOR VISIT Follow Up, Right > Left Low Back Pain, Right = Left Lower Extremity Pain MEDICATIONS Medication SIG (Take, Route, Frequency, Duration) Notes Start Date End Date Status Belbuca 75 MCG 1 film Bucally every 12 hrs for 30 days MAY FILL 05/03/25 04/30/2025 Active Aspirin Low Dose 81 MG TAKE 1 TABLET BY MOUTH EVERY MORNING Oral for 30 Active Lyrica 75 MG 1 capsule Orally EVERY 12 HOURS for 30 days 12/02/2024 Active tiZANidine HCl 2 MG 1 tablet [...] 1 puff Inhalation Once a day Active Nitroglycerin 0.4 MG [...] Answer Notes Did you have a drink containing alcohol in the p ast year? No Points 0 Interpretation Negative Section Notes: Patient is employed full [employer]. He is . He has 4 children and reports good support system at home. He quit cigarettes 1 month ago. He denies alcohol or illicit drug abuse. VITAL SIGNS Blood pressure systolic 113 mm Hg 04/30/20 25 Blood pressure diastolic 76 mm Hg 025 Heart Rate 83 /min 04/30/2025 Respiratory Rate 18 /min 04/30/2025 Height 5 ft 9 in in 04/30/2025 Weight 206 lbs 04/30/2025 BMI 30.42 kg/m2 04/30/2025 Encounters Encounter Location Date Provider Diagnosis [facility] [address] [facility] [place] [address] 04/30/2025 Rudy Parnell Radiculopathy, lumba r region M54.16 ; Postlaminectomy syndrome, not elsewhere classified M96.1 ; Radiculopathy, lumbosacral region M54.17 ; Spondylosis without myelopathy or radiculopathy, lumbar region M47.816 and intermediate (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 Z79.891 ASSESSMENTS Encounter Date Diagnosis Assessment Notes Treatment Notes Treatment Clinical Notes Section Notes 04/30/2025 Radiculopathy, lumbar region (ICD-10 - M54.16) 04/30/2025 Postlaminectomy syndrome, not elsewhere classified (ICD-10 - [...] to fully comply with the above. The [place] and [place] PDMP were reviewed and were appropriate 04/30/2025 Radiculopathy, lumbosacral region (ICD-10 - M54.17) 04/30/2025 Spondylosis without myelopathy or radiculopathy, lumbar region (ICD-10 - M47.816) 04/30/2025 intermediate (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 (ICD-10 - Z79.891) 04/30/2025 Other The above-named patient was evaluated in [...] Bucally every 12 hrs for 30 days 04/30/2025 MAY FILL 05/03/25 Treatment Notes Assessment Notes Postlaminectomy syndrome, no [...] to fully comply with the above. The [place] and [place] PDMP were reviewed and were appropriate Other [...] 4 Weeks OPV, Reas on: Provider Name:Rudy cantrellomar, 07/31/2025 07:30:00 AM, [address] [place], [address], Progress Notes * Examination Category Sub-Category Detail Notes Category Not es Examination/ Pre-Anesthesia Assessment General: : The patient is alert and o riented X 3 in moderate distress decondary to pain UDS 04/01/25 -compliant ([facility]C card recipient) Belbuca, Lyrica, tizanidine [...] posterior S1 vertebral body. Prior right laminectomy. [id number] left and severe right neuroforaminal stenosis. Facet arthropathy. Assessment and Follow-up: Follow-up Plan documen tremayne:: Yes MIPS Quality 2020: MIPS Documented:: Compliant
--- OUTSIDE RECORDS SUMMARY | 2025-05-30 02:30 | XMS_ITS ---
Author Organization [facility] Address [address] [facility] [place] PR[place] Alfonso [address] Care Team Providers Care Forms Analyst Name Role Phone ALONSO ARMAS MD Primary Care Provider Rudy Galvez Unavailable [phone] REASON FOR VISIT FOLLOW UP (LAST FILL 05/03/2025) Encounters Encounter Location Date Provider Diagnosis [facility] [address] [facility] [place] [address] 05/30/2025 Rudy Parnell PLAN OF TREATMENT Next Appt Details Provider Name:Rudy coelho, 07/31/2025 07:30:00 AM, [address] [facility] [place], [address],
--- OUTSIDE RECORDS SUMMARY | 2025-06-03 03:30 | XMS_ITS ---
Author Organization [facility] Address [address] [place] [address] PRINCE Jarvis [address] Care Team Providers Care Supervisor Spring Up Name Role Phone ALONSO ARMAS MD Primary Care Provider Rudy Galvez Unavailable [phone] ALLERGIES Allergen (clinical drug ingredient) Drug/Non Drug Allergy documented on EMR Reaction Allergy Type Onset Date Status Cortisone Anaphylaxis Drug Allergy Activ e metronidazole Metronidazole rash Drug Allergy Active REASON FOR VISIT Follow Up, Right > Left Low Back Pain, Right = Left Lower Extremity Pain MEDICATIONS Medication SIG (Take, Route, Frequency, Duration) Notes Start Date End Date Status Aspirin Low Dose 81 MG TAKE 1 TABLET BY MOUTH EVERY MORNING Oral for 30 Active Lyrica 75 MG 1 capsule Orally CALI RY 12 HOURS for 30 days 12/02/2024 Active Belbuca 75 MCG 1 film Bucally every 12 hrs for 30 days 06/03/2025 Active Narcan 4 MG/0.1ML 1 actuation in [...] puff Inha lation Once a day Active Lisinopril 10 MG 1 tablet Orally Once a day Active Carvedilol 3.125 MG 1 tablet with food Orally Twice a day Active Atorvastatin Calcium 40 MG 1 tablet Oral ly Once a day Active Lasix 40 MG 1 tablet Orally Once a day Active Nitroglycerin 0.4 MG as directed Subling ual Once a day Active Relistor 150 MG 3 tablets 30 minutes before the first meal of the day Orally Once a day for 30 day(s) 09/17/2020 Active Meloxicam 7.5 MG 1 tablet Orally Once a day Active SOCIAL HISTORY Tobacco [...] Negative Section Notes: Patient is employed full [employer]. He is . He has 4 children and reports good support system at home. He quit cigarettes 1 month ago. He denies alcohol or illicit drug abuse. VITAL SIGNS Blood pressure systolic 130 mm Hg 06/03/20 25 Blood pressure diastolic 87 mm Hg 025 Heart Rate 65 /min 06/03/2025 Respiratory Rate 18 /min 06/03/2025 Height 5 ft 9 in in 06/03/2025 Weight 205 lbs 06/03/2025 BMI 30.27 kg/m2 06/03/2025 Encounters Encounter Location Date Provider Diagnosis [facility] [address] [facility] [place] [address] 06/03/2025 Rudy Parnell Radiculopathy, lumba r region M54.16 ; Postlaminectomy syndrome, not elsewhere classified M96.1 ; Radiculopathy, lumbosacral region M54.17 ; Spondylosis without myelopathy or radiculopathy, lumbar region M47.816 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 The [place] and [place] PDMP were reviewed and were appropriate Other [...] 4 Weeks OPV, Reas on: Provider Name:Rudy coelho, 07/31/2025 07:30:00 AM, [address] [place], [address], Progress Notes * Examination Category [...] posterior S1 vertebral body. Prior right laminectomy. [id number] left and severe right neuroforaminal stenosis. Facet arthropathy. Assessment and Follow-up: Follow-up Plan documen tremayne:: Yes
--- OUTSIDE RECORDS SUMMARY | 2025-07-02 02:45 | XMS_ITS ---
Author Organization [facility] Address [address] [place] [address] PRINCE Jarvis [address] Care Team Providers Care Heel Turner Name Role Phone ALONSO ARMAS MD Primary Care Provider Rudy Galvez Unavailable [phone] ALLERGIES Allergen (clinical drug ingredient) Drug/Non Drug [...] Bucally every 12 hrs for 30 days 07/02/2025 Active Aspirin Low Dose 81 MG TAKE [...] puff Inha lation Once a day Active Nitroglycerin 0.4 MG [...] Negative Section Notes: Patient is employed full [employer]. He is . He has 4 children and reports good support system at home. He quit cigarettes 1 month ago. He denies alcohol or illicit drug abuse. VITAL SIGNS Blood pressure systolic 122 mm Hg 07/02/20 25 Blood pressure diastolic 88 mm Hg 025 Heart Rate 68 /min 07/02/2025 Respiratory Rate 16 /min 07/02/2025 Height 5 ft 9 in in 07/02/2025 Weight 203 lbs 07/02/2025 BMI 29.97 kg/m2 07/02/2025 Encounters Encounter Location Date Provider Diagnosis [facility] [address] [facility] [place] [address] 07/02/2025 Rudy Parnell Radiculopathy, lumba r region M54.16 ; Postlaminectomy syndrome, not elsewhere classified M96.1 ; Radiculopathy, lumbosacral region M54.17 ; Spondylosis without myelopathy or radiculopathy, lumbar region M47.816 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 07/02/2025 Other The above-named patient was evaluated in [...] Bucally every 12 hrs for 30 days 04/2025 Treatment Notes Assessment Notes Postlaminectomy syndrome, no [...] to fully comply with the above. 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 Prior right laminectomy. [id number] left and severe right neuroforaminal stenosis. Facet arthropathy. Assessment and Follow-up: Follow-up Plan documen tremayne:: Yes MIPS Quality 2020: MIPS Documented:: Compliant
--- NOTE | ~2025-07-08 | CT_ITS ---
CT UE LT w con INDICATION:concern for infection, decreased ROM COMPARISON: None. TECHNIQUE: Axial CT images of the left forearm were obtained following administration of 100 cc of Isovue-300 intravenous contrast followed by by multiplanar reconstruction in the coronal and sagittal planes. FINDINGS: No acute fracture or dislocation. There is mild subcutaneous edema within the posterior elbow. There is also subcutaneous edema along the volar aspect of the wrist. This may represent cellulitis in the appropriate clinical setting. There are no drainable fluid collection. No soft tissue gas seen. Muscles are grossly unremarkable. IMPRESSION: Mild subcutaneous edema in the posterior elbow and along the volar aspect of the wrist that may represent cellulitis in the appropriate clinical setting. There is no soft tissue gas or drainable fluid collections. All CT scans at this facility are performed using low dose modulation techniques as appropriate to perform exam including the following: automated exposure control; use of iterative reconstruction technique; adjustment of the mA and/or kV according to patient size (this includes techniques or standardized protocols for targeted exams where dose is matched to indication/reason for exam). Reviewed, dictated and finalized at location S. IMPRESSION: Mild subcutaneous edema in the posterior elbow and along the volar aspect of th e wrist that may represent cellulitis in the appropriate clinical setting. Ther e is no soft tissue gas or drainable fluid collections. All CT scans at this facility are performed using low dose modulation techniqu es as appropriate to perform exam including the following: automated exposure c ontrol; use of iterative reconstruction technique; adjustment of the mA and/or kV according to patient size (this includes techniques or standardized protocol s for targeted exams where dose is matched to indication/reason for exam).
--- NOTE | ~2025-07-08 | XR_ITS ---
XR wrist LT 2V INDICATION: pain COMPARISON: None FINDINGS: Two views of the left wrist demonstrate no acute fracture or dislocation. IMPRESSION: No acute fracture or dislocation. Reviewed, dictated and finalized at location S.
--- NOTE | ~2025-07-08 | XR_ITS ---
XR elbow LT min 3V INDICATION: L elbow pain/swelling . COMPARISON: None. FINDINGS: AP, lateral and oblique views of the right elbow demonstrate no acute fracture or dislocation. IMPRESSION: No acute fracture or dislocation. Reviewed, dictated and finalized at location S.
[2025-07-08 19:18] VITALS: BP 113/71; PULSE 84; RESP 14; TEMP 36.6; O2SAT 94
--- OUTSIDE RECORDS SUMMARY | 2025-07-08 20:57 | XMS_ITS | Clinical Summary ---
Author Organization [facility] Address [address] [facility], [address] [address] Phone Care Team Providers Care Siphoner Name Role Phone Doc Jiang MD Primary Care Provider [phone] Allergies Active Allergy Reactions Criticality Noted Date [...] 68 04/21/2023 9:34 AM CDT Temperature 36.1 C (97 F) 04/21/2023 9:34 AM CDT Respiratory Rate 16 04/21/2023 9:34 AM CDT Oxygen Saturation 97% 04/21/2023 9:34 AM CDT Inhaled Oxygen Concentration - - Weight 92.5 kg (204 lb) 04/07/2023 9:36 AM CDT Height 175.3 cm (5' 9) 04/04/2023 11:28 AM CDT Body Mass Index 30.13 04/04/2023 11:28 AM CDT Plan of Treatment Health Maintenance Due Date Last Done Comments Hepatitis C Virus (HCV) Screening 1970 TdaP Immunization 1969 Hepatitis B Immunization (1 of 3 - 19+ 3-dose series) 1988 Cologuard 2014 Colonoscopy 2014 Colorectal Cancer Screening 2014 Immunochemical Fecal Occult Blood 2014 Pneumococcal Immunization (5 0+ years) (1 of 1 - PCV) 12/24/2019 Zoster Immunization (1 of 2) 12/24/2019 Influenza Immunization (#1) 2025 SARS-COV-2 Immunization (3 - season) 2025 02/13/2021, 01/16/2021 Respiratory Syncytial Virus (RSV) Immunization (Adult) (1 - 1-dose 75+ series) 2044 Human Papillomavirus (HPV) Immunization Aged Out No longer eligible b ased on patient's age to complete this topic Meningococcal Immunization (ACWY) Aged Out No longer eligible b ased on patient's age to complete this topic Rotavirus Immunization Aged Out No lo nger eligible based on patient's age to complete this topic Insurance [facility] Advance Directives * Full Code (Latest Code Status on File) Date Activated Date Inactivated Comments 04/06/2023 11:52 AM Care Teams Siphoner Relationship Specialty Start Date End Date Doc Jiang MD [address] [place] [address] PCP - General Family Medicine 03/23/23
--- OUTSIDE RECORDS SUMMARY | 2025-07-08 20:57 | XMS_ITS | Encounter Summary ---
Author Organization [facility] Address [address] [place] [address] Phone Care Team Providers Care General Accounting Manager Name Role Phone Doc Jiang MD Primary Care Provider [phone] Encounter Details Date Type Department Care Team (Latest Contact Info) Description 04/03/2023 Lab Requisition [facility] Services [address] [place] [address] Deon Castillo MD [address] [id number] Atherosclerotic heart disease of [place] coronary artery without angina pectoris Social History [...] 12:00 PM CDT Atherosclerotic heart disease of [place] coronary artery without angina pectoris CMP (COMPREHENSIVE METABOLIC PANEL) Routine 04/03/2023 12:00 PM CDT Atherosclerotic heart disease of [place] coronary artery without angina pectoris COMPLETE BLOOD COUNT (CBC) WITH DIFF Routine 04/03/2023 12:00 PM CDT Atherosclerotic heart disease of [place] coronary artery without angina pectoris documented in this encounter Results * (ABNORMAL) CBC WITH AUTO DIFFERENTIAL (04/03/2023 12:00 PM CDT) [facility] WBC 11.95 4.00 - 12.00 10(3)/mcL 04/03/2023 2:26 PM CDT [facility] RBC 3.62(L) 4.40 - 5.80 10(6)/mcL 04/03/2023 2:26 PM CDT [facility] HEMOGLOBIN (HGB) 10.7(L) 13.0 - 16.5 g/dL 04/03/2023 2:26 PM CDT [facility] HEMATOCRIT (HCT) 33.9(L) 38.0 - 50.0 % 04/03/2023 2:26 PM CDT [facility] MCV 93.6 82.0 - 96.0 fL 04/03/2023 2:26 PM CDT [facility] MCH 29.6 26.0 - 32.0 pg 04/03/2023 2:26 PM CDT [facility] MCHC 31.6 31.0 - 36.0 g/dL 04/03/2023 2:26 PM CDT [facility] PLATELET COUNT 496(H) 140 - 440 10(3)/mcL 04/03/2023 2:26 PM CDT [facility] RDW 13.8 11.8 - 15.5 % 04/03/2023 2:26 PM CDT [facility] MPV 9.0 8.0 - 12.6 fL 04/03/2023 2:26 PM CDT [facility] NEUTROPHILS 73.9(H) 40.0 - 68.0 % 04/03/2023 2:26 PM CDT [facility] LYMPHOCYTES 18.7(L) 19.0 - 49.0 % 04/03/2023 2:26 PM CDT [facility] MONOCYTES 5.4 3.0 - 13.0 % 04/03/2023 2:26 PM CDT [facility] EOSINOPHILS 1.5 0.0 - 8.0 % 04/03/2023 2:26 PM CDT [facility] BASOPHILS 0.5 0.0 - 1.0 % 04/03/2023 2:26 PM CDT [facility] ABSOLUTE NEUTROPHILS 8.82(H) 1.40 - 5.30 10(3)/mcL 04/03/2023 2:26 PM CDT [facility] ABSOLUTE LYMPHOCYTES 2.24 0.90 - 3.30 10(3)/[facility] 04/03/2023 2:26 PM CDT [facility] ABSOLUTE MONOCYTES 0.65 0.10 - 0.90 10(3)/mcL 04/03/2023 2:26 PM CDT [facility] ABSOLUTE EOSINOPHIL 0.18 0.00 - 0.50 10(3)/[facility] 04/03/2023 2:26 PM CDT [facility] ABSOLUTE BASOPHILS 0.06 0.00 - 0.10 10(3)/[facility] 04/03/2023 2:26 PM CDT [facility] NRBC PER 100 WBC 0 04/03/20 2:26 PM CDT [facility] Blood No Phlebotomy Charged / Unknown 04/03/2023 12:00 PM CDT 04/03/2023 1:51 PM CDT us Deon Castillo MD HEMATOLOGY ORDERABLES Final Resu lt [facility] [address] [place] [address] * (ABNORMAL) CMP (COMPREHENSIVE METABOLIC PANEL) (04/03/2023 12:00 PM CDT) SODIUM 138 136 - 144 mmol/L 04/03/2023 2:26 PM CDT [facility] POTASSIUM 4.1 3.5 - 5.1 mmol/L 04/03/2023 2:26 PM CDT [facility] CHLORIDE 100 100 - 110 mmol/L 04/03/2023 2:26 PM [facility] CO2, VENOUS 22 22 - 32 mmol/L 04/03/2023 2:26 PM [facility] ANION GAP 20.1(H) 8.0 - 20.0 mmol/L 04/03/2023 2:26 PM T [facility] GLUCOSE 103(H) 70 - 99 mg/dL 04/03/2023 2:26 PM T [facility] BUN 16 6 - 20 mg/dL 04/03/2023 2:26 PM [facility] CREATININE, BLOOD 0.90 0.80 - 1.30 mg/dL 04/03/2023 2:26 PM [facility] BUN/CREATININE RATIO 18 12 - 20 ratio 04/03/2023 2:26 PM [facility] TOTAL PROTEIN 7.4 6.0 - 8.3 g/dL 04/03/2023 2:26 PM [facility] ALBUMIN 4.0 3.5 - 5.2 g/dL 04/03/2023 2:26 PM [facility] Comment: The colormetric methods used for the determination of Albumin may lead to falsely elevated test results in patients suffering from renal failure or insufficiency due to interference with other proteins. A/G RATIO 1.2 1.0 - 2.0 04/03/2023 2:26 PM [facility] CALCIUM 9.8 8.9 - 10.3 mg/dL 04/03/2023 2:26 PM [facility] T BILI 0.4 <=1.2 mg/dL 04/03/2023 2:26 PM [facility] SGOT (AST) 17 <=40 U/L 04/03/2023 2:26 PM [facility] SGPT (ALT) 17 <=41 U/L 04/03/2023 2:26 PM CDT [facility] ALKALINE PHOSPHATASE 104 40 - 130 U/L 04/03/2023 2:26 PM CDT [facility] GFR, ESTIMATED >60 >=60 04/03/2023 2:26 PM CDT [facility] Comment: Creatinine Clearance is the preferred criteria for selecting drug dose adjustments in renally impaired patients. The GFR is provided as additional pertinent clinical information. GFR is reported in mL/min/1.73 sq m. Calculation based on the Chronic Kidney Disease Epidemiology Collaboration (CKD- EPI) equation refit without adjustment for race. GFR, EST. >60 >=60 023 2:26 PM CDT [facility] GFR, EST. NONAFRICAN >60 >=60 04/03/2023 2:26 PM CDT [facility] Blood No Phlebotomy Charged / Unknown 04/03/2023 12:00 PM CDT 04/03/2023 1:51 PM CDT us Deon Castillo MD CHEMISTRY ORDERABLES Final Resul t [facility] [place] [address] documented in this encounter Visit Diagnoses Diagnosis Atherosclerotic heart disease of [place] coronary artery without angina pectoris Coronary atherosclerosis of [place] coronary artery documented in this encounter Care Teams General Accounting Manager Relationship Specialty Start Date End Date Doc Jiang MD [address] [place] [address] PCP - General Family Medicine 03/23/23 documented as of this encounter
--- OUTSIDE RECORDS SUMMARY | 2025-07-08 20:58 | XMS_ITS | Clinical Summary ---
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 Gender Identity Not on file Sexual Orientation Not on file Last Filed Vital Signs Vital Sign Reading Time Taken Comments Blood Pressure 109/82 01/01/2023 11:30 PM CDT Pulse 105 01/01/2023 11:30 PM CDT Temperature 36.2 C (97.2 F) 01/01/2023 9:55 PM CDT Respiratory Rate 16 01/01/2023 11:30 PM CDT Oxygen Saturation 93% 01/01/2023 11:30 PM CDT Inhaled Oxygen Concentration - - Weight 98.9 kg (218 lb) 11/12/2021 7:39 AM HOME HEALTH PROVIDER Height 175.3 cm (5' 9) 11/12/2021 7:39 AM HOME HEALTH PROVIDER Body Mass Index 32.19 11/12/2021 7:39 AM HOME HEALTH PROVIDER Plan of Treatment Health Maintenance Due Date Last Done Comments Colorectal Cancer Screening Colonoscopy (10 Years) 1969 Annual Physical 1972 Hepatitis C 12/24/1987 DTaP, Tdap and Td Vaccines ( 1 - Tdap) 1988 Hepatitis B Vaccines (1 of 3 - 19+ 3-dose series) 1988 Pneumococcal Vaccine: 50+ Years (1 of 1 - PCV) 12/24/2019 Zoster Vaccines (1 of 2) 12/24/2019 COVID-19 Vaccine (3 - 2024-2 6 season) 2025 02/13/2021, 01/16/2021 Influenza Adult (#1) 2025 Meningococcal B Vaccine Aged Out No l onger eligible based on patient's age to complete this topic Meningococcal Vaccine Aged Out No paul ronal eligible based on patient's age to complete this topic RSV Immunizations Under 20 Months Aged Out No longer eligible b ased on patient's age to complete this topic Insurance [facility] Care Teams Psychology Associate Relationship Specialty Start Date End Date Doc Jiang MD [address] [place] [phone] PCP - General FAMILY PRACTICE 03/21/20 Jacky Martinez MD [address] [place] [address] [phone] Consulting Physician INTERVENTIONAL CARDIOLOGY 04/23/20 Huey Camarillo MD [address] [place] [address] [phone] Vascular/Fixed Wing Aircraft Crew Chief INTERNAL MEDICINE 08/13/20
--- OUTSIDE RECORDS SUMMARY | 2025-07-08 20:58 | XMS_ITS | Encounter Summary ---
Author Organization [facility] Address [address] [place] [address] Care Team Providers Care Emergency Operator Name Role Phone Ismael Mendez MD Primary Care Provider [phone] Doc Jiang MD Primary Care Provider Jacky Martinez MD Unavailable [phone] Huey Camarillo MD Unavailable Encounter Details Date Type Department Care Team (Late st Contact Info) Description 12/09/2017 Abstract [facility] CONVERSION [address] [place] [address] , Anamaria Glez MD Social History Tobacco Use Types Packs/Day Years Used Date Smoking Tobacco: Never Assessed Sex and Gender Information Value Date Recorded Sex Assigned at Not on file 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 Gender Identity Not on file Sexual Orientation Not on file documented as of this encounter Plan of Treatment Not on file documented as of this encounter Visit Diagnoses Not on filedocumented in this encounter Care Teams Emergency Operator Relationship Specialty Start Date End Date Ismael Mendez MD [address] [place] [phone] PCP - General PULMONARY DISEASE 08/07/19 03/20/20 Dco Jiang MD [address] [place] [phone] PCP - General FAMILY PRACTICE 03/21/20 Jacky Martinez MD [address] [place] [phone] Consulting Physician INTERVENTIONAL CARDIOLOGY 04/23/20 Huey Camarillo MD [address] [place] [address] [phone] Vascular/Care Nurse Rn INTERNAL MEDICINE 08/13/20 documented as of this encounter
--- OUTSIDE RECORDS SUMMARY | 2025-07-08 20:58 | XMS_ITS | Encounter Summary ---
Author Organization [facility] Address [address] [place] [address] Care Team Providers Care Svp Operations Name Role Phone Ismael Mendez MD Primary Care Provider [phone] Doc Jiang MD Primary Care Provider Jacky Martinez MD Unavailable [phone] Huey Camarillo MD Unavailable Encounter Details Date Type Department Care Team (Late st Contact Info) Description 03/02/2019 Abstract [facility] CONVERSION [address] [place] [address] , Generic MD Amaris Social History Tobacco Use Types Packs/Day Years Used Date Smoking Tobacco: Never Assessed Sex and Gender Information Value Date Recorded Sex Assigned at Not on file 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 Gender Identity Not on file Sexual Orientation Not on file documented as of this encounter Plan of Treatment Not on file documented as of this encounter Visit Diagnoses Not on filedocumented in this encounter Care Teams Svp Operations Relationship Specialty Start Date End Date Ismael Mendez MD [address] [place] [phone] PCP - General PULMONARY DISEASE 08/07/19 03/20/20 Doc Jiang MD [address] [place] [phone] PCP - General FAMILY PRACTICE 03/21/20 Jacky Martinez MD [address] [place] [phone] Consulting Physician INTERVENTIONAL CARDIOLOGY 04/23/20 Huey Camarillo MD [address] [place] [address] [phone] Vascular/Circuits Engineer INTERNAL MEDICINE 08/13/20 documented as of this encounter
--- OUTSIDE RECORDS SUMMARY | 2025-07-08 20:58 | XMS_ITS | Patient Health Record ---
Author Organization [facility] Address [address] [place] [address] PRINCE Jarvis [id number] Care Team Providers Care Nursing Services Manager Name Role Phone ALONSO ARMAS MD Primary Care Provider Rudy Galvez Unavailable [phone] ALLERGIES Allergen (clinical drug ingredient) Drug/Non Drug Allergy documented on EMR Reaction Allergy Type Onset Date Status Cortisone Anaphylaxis Drug Allergy Activ e metronidazole Metronidazole rash Drug Allergy Active RESULTS Component Value Reference Range Notes Nuve Results (Not yet reviewed by provider) Interpretation: Performing Lab:[id number] [place], [address] [address] [facility] [address] Ninfa Vitale MD Notes/Report: Acetyl fentanyl: Fentanyl [...] Fen Neg 1 ng/m L Mitragynine (Kratom alkaloid) Quantification negative 1 ng/mL 7-IV-Nialvopxekc (Kratom alk aloid) Quantification negative 1 ng/mL Ethyl Glucuronide Quantification negative 500 ng/m L Ethyl Sulfate Quantification negative 500 ng/mL [facility] Results (Not yet reviewed by provider) Interpretation: Performing Lab:[id number] [facility], [address] [address] [place] [id number] Ninfa Vitlae MD Notes/Report: Acetyl fentanyl: Fentanyl Negative. Acetyl [...] Fen Neg 1 ng/m L Mitragynine (Kratom alkaloid) Quantification negative 1 ng/mL 5-NV-Uqzokbdgqwe (Kratom alk aloid) Quantification negative 1 ng/mL Ethyl Glucuronide Quantification negative 500 ng/m L Ethyl Sulfate Quantification negative 500 ng/mL [facility] Results (Not yet reviewed by provider) Interpretation: Performing Lab:[id number] [facility], [address] [address] [place] [id number] Ninfa Vitale MD Notes/Report: Acetyl fentanyl: Fentanyl Negative. Acetyl norfentanyl: Fentanyl Negative. Acr yl fentanyl: Fentanyl Negative. Carfentanil: Fentanyl Negative. Para-fluorofent anyl: Fentanyl Negative. OPIATES SCREEN negative 300 ng/mL Oxymorphone Quantification negative 50 ng/mL Fentanyl Quantification negative 1 ng/mL Norfentanyl Quantification negative 8 ng/mL Methadone Quantification negative 100 ng/mL EDDP (Methadone metabolite) Quantification negative 100 ng/mL TRAMADOL SCREEN negative 200 ng/mL BENZODIAZEPINES SCREEN negative 200 ng/mL AMPHETAMINES [...] Fen Neg 1 ng/m L Mitragynine (Kratom alkaloid) Quantification negative 1 ng/mL 1-KL-Jubcxcdecin (Kratom alk aloid) Quantification negative 1 ng/mL Ethyl Glucuronide Quantification negative 500 ng/m L Ethyl Sulfate Quantification negative 500 ng/mL Nuve Results (Not yet reviewed by provider) Interpretation: Performing Lab:[id number] [place], [address] [address] [facility] [address] Ninfa Vitale MD Notes/Report: Acetyl fentanyl: Fentanyl Negative. Acetyl norfentanyl: Fentanyl Negative. Acr yl fentanyl: Fentanyl Negative. Carfentanil: Fentanyl Negative. Para-fluorofent anyl: Fentanyl Negative. OPIATES SCREEN negative 300 ng/mL OXYCODONE SCREEN negative 100 ng/mL Oxymorphone Quantification negative 50 ng/mL Fentanyl Quantification negative 1 ng/mL Norfentanyl Quantification negative 8 ng/mL Methadone Quantification negative 100 ng/mL EDDP (Methadone metabolite) Quantification negative 100 ng/mL TRAMADOL SCREEN negative 200 ng/mL BENZODIAZEPINES SCREEN negative 200 ng/mL AMPHETAMINES [...] Fen Neg 1 ng/m L Mitragynine (Kratom alkaloid) Quantification negative 1 ng/mL 5-JJ-Jvjksaguiqf (Kratom alk aloid) Quantification negative 1 ng/mL Ethyl Glucuronide Quantification positive-594.030 500 ng/mL Ethyl Sulfate Quantification negative 500 ng/mL REASON FOR REFERRAL No Information MEDICATIONS Medication SIG (Take, Route, Frequency, Duration) Notes Start Date End Date Status Nitroglycerin 0.4 MG as directed Subling ual Once a day Active Xarelto 2.5 MG 1 tablet Oral Once a day Active Lisinopril 10 MG 1 tablet Orally Once a day Active Ezetimibe 10 MG 1 tablet Oral Once a day Active Carvedilol 3.125 MG 1 tablet with food Orally Twice a day Active Metoprolol Tartrate 25 MG 1 tablet with food Oral Twice a day Active Jardiance 10 MG 1 tablet Oral Once a day Active Atorvastatin Calcium 40 MG 1 tablet Oral ly Once a day Active Meloxicam 7.5 MG 1 tablet Orally Once a day Active Doxycycline Hyclate 100 MG 1 tablet Oral ly every 12 hrs for 7 days 02/23/2023 Active Belbuca 75 MCG 1 film Bucally every 12 hrs for 30 days 07/02/2025 Active Relistor 150 MG 3 tablets 30 [...] 1 tablet Oral Once a day Active Aspirin Low Dose 81 MG TAKE 1 TABLET BY MOUTH EVERY MORNING Oral for 30 Active Symbicort 160-4.5 MCG/ACT 1 puff as need ed Inhalation every 4 hrs Active Lyrica 75 MG 1 capsule Orally CALI RY 12 HOURS for 30 days 12/02/2024 Active Incruse Ellipta 62.5 MCG/INH 1 puff Inha lation Once a day Active tiZANidine HCl 2 MG 1 tablet as needed Orally twice daily prn muscle spasms for 30 days Active Lasix 40 MG 1 tablet Orally Once a day Active Narcan 4 MG/0.1ML [...] 0 Interpretation Negative Section Notes: Patient is unemployed. He is . He has 4 children and reports good support system at home. He smokes one pack per day for the last 20 years. He denies alcohol or illicit drug abuse. Patient is unemployed. He is . He has 4 children and reports good support system at home. He smokes one pack per day for the last 20 years. He denies alcohol or illicit drug abuse. Patient is unemployed. He is . He has 4 children and reports good support system at home. He smokes one pack per day for the last 20 years. He denies alcohol or illicit drug abuse. Patient is unemployed. He is . He has 4 children and reports good support system at home. He smokes one pack per day for the last 20 years. He denies alcohol or illicit drug abuse. Patient is unemployed. He is . He has 4 children and reports good support system at home. He smokes one pack per day for the last 20 years. He denies alcohol or illicit drug abuse. Patient is unemployed. He is . He has 4 children and reports good support system at home. He smokes one pack per day for the last 20 years. He denies alcohol or illicit drug abuse. Patient is unemployed. He is . He has 4 children and reports good support system at home. He smokes one pack per day for the last 20 years. He denies alcohol or illicit drug abuse. Patient is unemployed. He is . He has 4 children and reports good support system at home. He smokes one pack per day for the last 20 years. He denies alcohol or illicit drug abuse. Patient is unemployed. He is . He has 4 children and reports good support system at home. He smokes one pack per day for the last 20 years. He denies alcohol or illicit drug abuse. Patient is unemployed. He is . He has 4 children and reports good support system at home. He smokes one pack per day for the last 20 years. He denies alcohol or illicit drug abuse. Patient is unemployed. He is . He has 4 children and reports good support system at home. He smokes one pack per day for the last 20 years. He denies alcohol or illicit drug abuse. Patient is unemployed. He is . He has 4 children and reports good support system at home. He smokes one pack per day for the last 20 years. He denies alcohol or illicit drug abuse. Patient is employed full [employer]. He is . He has 4 children and reports good support system at home. He quit cigarettes 1 month ago. He denies alcohol or illicit drug abuse. Patient is employed full [employer]. He is . He has 4 children and reports good support system at home. He quit cigarettes 1 month ago. He denies alcohol or illicit drug abuse. Patient is employed full [employer]. He is . He has 4 children and reports good support system at home. He quit cigarettes 1 month ago. He denies alcohol or illicit drug abuse. Patient is employed full [employer]. He is . He has 4 children and reports good support system at home. He quit cigarettes 1 month ago. He denies alcohol or illicit drug abuse. Patient is employed full [employer]. He is . He has 4 children and reports good support system at home. He quit cigarettes 1 month ago. He denies alcohol or illicit drug abuse. Patient is employed full [employer]. He is . He has 4 children and reports good support system at home. He quit cigarettes 1 month ago. He denies alcohol or illicit drug abuse. Patient is employed full [employer]. He is . He has 4 children and reports good support system at home. He quit cigarettes 1 month ago. He denies alcohol or illicit drug abuse. Patient is employed full [employer]. He is . He has 4 children and reports good support system at home. He quit cigarettes 1 month ago. He denies alcohol or illicit drug abuse. Patient is employed full [employer]. He is . He has 4 children and reports good support system at home. He quit cigarettes 1 month ago. He denies alcohol or illicit drug abuse. Patient is employed full [employer]. He is . He has 4 children and reports good support system at home. He quit cigarettes 1 month ago. He denies alcohol or illicit drug abuse. Patient is employed full [employer]. He is . He has 4 children and reports good support system at home. He quit cigarettes 1 month ago. He denies alcohol or illicit drug abuse. Patient is employed full [employer]. He is . He has 4 children and reports good support system at home. He quit cigarettes 1 month ago. He denies alcohol or illicit drug abuse. Patient is employed full [employer]. He is . He has 4 children and reports good support system at home. He quit cigarettes 1 month ago. He denies alcohol or illicit drug abuse. Patient is employed [employer]. He is . He has 4 children and reports good support system at home. He quit cigarettes 1 month ago. He denies alcohol or illicit drug abuse. Patient is employed [employer]. He is . He has 4 children and reports good support system at home. He quit cigarettes 1 month ago. He denies alcohol or illicit drug abuse. Patient is employed [employer]. He is . He has 4 children and reports good support system at home. He quit cigarettes 1 month ago. He denies alcohol or illicit drug abuse. Patient is employed full [employer]. He is . He has 4 children and reports good support system at home. He quit cigarettes 1 month ago. He denies alcohol or illicit drug abuse. Patient is employed full [employer]. He is . He has 4 children and reports good support system at home. He quit cigarettes 1 month ago. He denies alcohol or illicit drug abuse. Patient is employed [employer]. He is . He has 4 children and reports good support system at home. He quit cigarettes 1 month ago. He denies alcohol or illicit drug abuse. Patient is employed [employer]. He is . He has 4 children and reports good support system at home. He quit cigarettes 1 month ago. He denies alcohol or illicit drug abuse. Patient is employed [employer]. He is . He has 4 children and reports good support system at home. He quit cigarettes 1 month ago. He denies alcohol or illicit drug abuse. Patient is employed [employer]. He is . He has 4 children and reports good support system at home. He quit cigarettes 1 month ago. He denies alcohol or illicit drug abuse. Patient is employed [employer]. He is . He has 4 children and reports good support system at home. He quit cigarettes 1 month ago. He denies alcohol or illicit drug abuse. Patient is employed [employer]. He is . He has 4 children and reports good support system at home. He quit cigarettes 1 month ago. He denies alcohol or illicit drug abuse. Patient is employed [employer]. He is . He has 4 children and reports good support system at home. He quit cigarettes 1 month ago. He denies alcohol or illicit drug abuse. Patient is employed [employer]. He is . He has 4 children and reports good support system at home. He quit cigarettes 1 month ago. He denies alcohol or illicit drug abuse. Patient is employed full [employer]. He is . He has 4 children and reports good support system at home. He quit cigarettes 1 month ago. He denies alcohol or illicit drug abuse. Patient is employed [employer]. He is . He has 4 children and reports good support system at home. He quit cigarettes 1 month ago. He denies alcohol or illicit drug abuse. Patient is employed [employer]. He is . He has 4 children and reports good support system at home. He quit cigarettes 1 month ago. He denies alcohol or illicit drug abuse. Patient is employed [employer]. He is . He has 4 children and reports good support system at home. He quit cigarettes 1 month ago. He denies alcohol or illicit drug abuse. Patient is employed full [employer]. He is . He has 4 children and reports good support system at home. He quit cigarettes 1 month ago. He denies alcohol or illicit drug abuse. Patient is employed full [employer]. He is . He has 4 children and reports good support system at home. He quit cigarettes 1 month ago. He denies alcohol or illicit drug abuse. Patient is employed full [employer]. He is . He has 4 children and reports good support system at home. He quit cigarettes 1 month ago. He denies alcohol or illicit drug abuse. Patient is employed full [employer]. He is . He has 4 children and reports good support system at home. He quit cigarettes 1 month ago. He denies alcohol or illicit drug abuse. Patient is employed full [employer]. He is . He has 4 children and reports good support system at home. He quit cigarettes 1 month ago. He denies alcohol or illicit drug abuse. Patient is employed [employer]. He is . He has 4 children and reports good support system at home. He quit cigarettes 1 month ago. He denies alcohol or illicit drug abuse. Patient is employed full [employer]. He is . He has 4 children and reports good support system at home. He quit cigarettes 1 month ago. He denies alcohol or illicit drug abuse. Patient is employed full [employer]. He is . He has 4 children and reports good support system at home. He quit cigarettes 1 month ago. He denies alcohol or illicit drug abuse. Patient is employed full [employer]. He is . He has 4 children and reports good support system at home. He quit cigarettes 1 month ago. He denies alcohol or illicit drug abuse. Patient is employed [employer]. He is . He has 4 children and reports good support system at home. He quit cigarettes 1 month ago. He denies alcohol or illicit drug abuse. Patient is employed [employer]. He is . He has 4 children and reports good support system at home. He quit cigarettes 1 month ago. He denies alcohol or illicit drug abuse. Patient is employed [employer]. He is . He has 4 children and reports good support system at home. He quit cigarettes 1 month ago. He denies alcohol or illicit drug abuse. Patient is employed [employer]. He is . He has 4 children and reports good support system at home. He quit cigarettes 1 month ago. He denies alcohol or illicit drug abuse. Patient is employed [employer]. He is . He has 4 children and reports good support system at home. He quit cigarettes 1 month ago. He denies alcohol or illicit drug abuse. Patient is employed [employer]. He is . He has 4 children and reports good support system at home. He quit cigarettes 1 month ago. He denies alcohol or illicit drug abuse. Patient is employed [employer]. He is . He has 4 children and reports good support system at home. He quit cigarettes 1 month ago. He denies alcohol or illicit drug abuse. Patient is employed [employer]. He is . He has 4 children and reports good support system at home. He quit cigarettes 1 month ago. He denies alcohol or illicit drug abuse. Patient is employed [employer]. He is . He has 4 children and reports good support system at home. He quit cigarettes 1 month ago. He denies alcohol or illicit drug abuse. Patient is employed [employer]. He is . He has 4 children and reports good support system at home. He quit cigarettes 1 month ago. He denies alcohol or illicit drug abuse. Patient is employed [employer]. He is . He has 4 children and reports good support system at home. He quit cigarettes 1 month ago. He denies alcohol or illicit drug abuse. Patient is employed [employer]. He is . He has 4 children and reports good support system at home. He quit cigarettes 1 month ago. He denies alcohol or illicit drug abuse. Patient is employed [employer]. He is . He has 4 children and reports good support system at home. He quit cigarettes 1 month ago. He denies alcohol or illicit drug abuse. Patient is employed [employer]. He is . He has 4 children and reports good support system at home. He quit cigarettes 1 month ago. He denies alcohol or illicit drug abuse. Patient is employed [employer]. He is . He has 4 children and reports good support system at home. He quit cigarettes 1 month ago. He denies alcohol or illicit drug abuse. Patient is employed [employer]. He is . He has 4 children and reports good support system at home. He quit cigarettes 1 month ago. He denies alcohol or illicit drug abuse. Patient is employed [employer]. He is . He has 4 children and reports good support system at home. He quit cigarettes 1 month ago. He denies alcohol or illicit drug abuse. Patient is employed [employer]. He is . He has 4 children and reports good support system at home. He quit cigarettes 1 month ago. He denies alcohol or illicit drug abuse. Patient is employed [employer]. He is . He has 4 children and reports good support system at home. He quit cigarettes 1 month ago. He denies alcohol or illicit drug abuse. Patient is employed [employer]. He is . He has 4 children and reports good support system at home. He quit cigarettes 1 month ago. He denies alcohol or illicit drug abuse. Patient is employed [employer]. He is . He has 4 children and reports good support system at home. He quit cigarettes 1 month ago. He denies alcohol or illicit drug abuse. Patient is employed [employer]. He is . He has 4 children and reports good support system at home. He quit cigarettes 1 month ago. He denies alcohol or illicit drug abuse. Patient is employed [employer]. He is . He has 4 children and reports good support system at home. He quit cigarettes 1 month ago. He denies alcohol or illicit drug abuse. Patient is employed [employer]. He is . He has 4 children and reports good support system at home. He quit cigarettes 1 month ago. He denies alcohol or illicit drug abuse. Patient is employed [employer]. He is . He has 4 children and reports good support system at home. He quit cigarettes 1 month ago. He denies alcohol or illicit drug abuse. Patient is employed full [employer]. He is . He has 4 children and reports good support system at home. He quit cigarettes 1 month ago. He denies alcohol or illicit drug abuse. Patient is employed [employer]. He is . He has 4 children and reports good support system at home. He quit cigarettes 1 month ago. He denies alcohol or illicit drug abuse. Patient is employed [employer]. He is . He has 4 children and reports good support system at home. He quit cigarettes 1 month ago. He denies alcohol or illicit drug abuse. Patient is employed [employer]. He is . He has 4 children and reports good support system at home. He quit cigarettes 1 month ago. He denies alcohol or illicit drug abuse. Patient is employed [employer]. He is . He has 4 children and reports good support system at home. He quit cigarettes 1 month ago. He denies alcohol or illicit drug abuse. Patient is employed full [employer]. He is . He has 4 children and reports good support system at home. He quit cigarettes 1 month ago. He denies alcohol or illicit drug abuse. Patient is employed full [employer]. He is . He has 4 children and reports good support system at home. He quit cigarettes 1 month ago. He denies alcohol or illicit drug abuse. Patient is employed full [employer]. He is . He has 4 children and reports good support system at home. He quit cigarettes 1 month ago. He denies alcohol or illicit drug abuse. Patient is employed [employer]. He is . He has 4 children and reports good support system at home. He quit cigarettes 1 month ago. He denies alcohol or illicit drug abuse. Patient is employed full [employer]. He is . He has 4 children and reports good support system at home. He quit cigarettes 1 month ago. He denies alcohol or illicit drug abuse. Patient is employed [employer]. He is . He has 4 children and reports good support system at home. He quit cigarettes 1 month ago. He denies alcohol or illicit drug abuse. Patient is employed [employer]. He is . He has 4 children and reports good support system at home. He quit cigarettes 1 month ago. He denies alcohol or illicit drug abuse. Patient is employed [employer]. He is . He has 4 children and reports good support system at home. He quit cigarettes 1 month ago. He denies alcohol or illicit drug abuse. Patient is employed [employer]. He is . He has 4 children and reports good support system at home. He quit cigarettes 1 month ago. He denies alcohol or illicit drug abuse. Patient is employed [employer]. He is . He has 4 children and reports good support system at home. He quit cigarettes 1 month ago. He denies alcohol or illicit drug abuse. Patient is employed [employer]. He is . He has 4 children and reports good support system at home. He quit cigarettes 1 month ago. He denies alcohol or illicit drug abuse. Patient is employed [employer]. He is . He has 4 children and reports good support system at home. He quit cigarettes 1 month ago. He denies alcohol or illicit drug abuse. Patient is employed [employer]. He is . He has 4 children and reports good support system at home. He quit cigarettes 1 month ago. He denies alcohol or illicit drug abuse. Patient is employed [employer]. He is . He has 4 children and reports good support system at home. He quit cigarettes 1 month ago. He denies alcohol or illicit drug abuse. PROBLEMS Problem Type ICD Code Onset Dates Problem Status W/U Status Risk SNOMED Code Notes Problem Chronic pain syndrome (G89.4) Active confirmed Chronic keith n syndrome (927368557) Problem Spinal enthesopathy, site unspecified (M46.00) Active confirmed Spinal enthesopathy (91124081) Problem Spondylosis without myelopathy or radiculopathy, lumbar region (M47.816) Active confirmed Lumbosacral spondylosis without myelopathy (17844876) Problem Intervertebral disc disorders with radiculopathy, lumbar region (M51.16) Active confirmed Radiculopathy d ue to lumbar intervertebral disc disorder (376640698518728) Problem Other intervertebral disc displacement, lumbar region (M51.26) Active confirmed Displacement of lumbar intervertebral disc without myelopathy (26624874) Problem Radiculopathy, lumbar region (M54.16) Active confirmed Lumbar radiculopathy (877051717) Problem Radiculopathy, lumbosacral region (M54.17) Active confirmed Lumbosacral radiculopathy (9312974) Problem Postlaminectomy syndrome, not elsewhere classified (M96.1) Active confirmed Post-lami nectomy syndrome (99267522) Problem 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 (Z79.891) Active confirmed High risk drug monitoring status (661729105) Problem Drug induced constipation (K59.03) Active confirmed Drug-induced constipation (48891044) Problem Spinal stenosis, lumbar region without neurogenic claudication (M48.061) Active confirmed Spinal stenosis of lumbar region (90662268) Problem Spinal stenosis, lumbar region with neurogenic claudication (M48.062) Active confirmed Neurogenic claudication (126709819) Problem Myalgia, other site (M79.18) Active confirmed Muscle pain (67316123) VITAL SIGNS Heart Rate 68 /min 07/02/2025 Respiratory Rate 16 /min 07/02/2025 Blood pressure diastolic 88 mm Hg 07/02/2025 Height 5 ft 9 in in 07/02/2025 Blood pressure systolic 122 mm Hg 07/02/2025 Weight 203 lbs 07/02/2025 BMI 29.97 kg/m2 07/02/2025 Encounters Encounter Location Date Provider Diagnosis [facility] [address] [place] [id number] 07/17/2024 Ruyd Stynowick Radiculopathy, lumba r region M54.16 ; Postlaminectomy syndrome, not elsewhere classified M96.1 ; Radiculopathy, lumbosacral region M54.17 ; Spondylosis without myelopathy or radiculopathy, lumbar region M47.816 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 Z79.891 [facility] [address] [place], [place] [id number] 08/14/2024 Rudy Stynowick Radiculopathy, lumba r region M54.16 ; Postlaminectomy syndrome, not elsewhere classified M96.1 ; Radiculopathy, lumbosacral region M54.17 ; Spondylosis without myelopathy or radiculopathy, lumbar region M47.816 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 Z79.891 [facility] [address] [place] [phone] 09/30/2024 Rudy Stynowick Radiculopathy, lumba r region M54.16 ; Postlaminectomy syndrome, not elsewhere classified M96.1 ; Radiculopathy, lumbosacral region M54.17 ; Spondylosis without myelopathy or radiculopathy, lumbar region M47.816 and USP (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 Z79.891 [facility] [address] [place] [phone] 10/02/2024 Rudy Stynowick Radiculopathy, lumba r region M54.16 ; Postlaminectomy syndrome, not elsewhere classified M96.1 ; Radiculopathy, lumbosacral region M54.17 ; Spondylosis without myelopathy or radiculopathy, lumbar region M47.816 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 Z79.891 [facility] [address] [place] [phone] 10/31/2024 Rudy Stynowick Radiculopathy, lumba r region M54.16 ; Postlaminectomy syndrome, not elsewhere classified M96.1 ; Radiculopathy, lumbosacral region M54.17 ; Spondylosis without myelopathy or radiculopathy, lumbar region M47.816 and USP (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 Z79.891 [facility] [address] [place] [address] 11/04/2024 Rudy Stynowick Radiculopathy, lumba r region M54.16 ; Postlaminectomy syndrome, not elsewhere classified M96.1 ; Radiculopathy, lumbosacral region M54.17 ; Spondylosis without myelopathy or radiculopathy, lumbar region M47.816 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 Z79.891 [facility] [address] [place] [address] 12/02/2024 Rudy Stynowick Radiculopathy, lumba r region M54.16 ; Postlaminectomy syndrome, not elsewhere classified M96.1 ; Radiculopathy, lumbosacral region M54.17 ; Spondylosis without myelopathy or radiculopathy, lumbar region M47.816 and USP (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 Z79.891 [facility] [address] [place] [phone] 12/30/2024 Rudy Stynowick Radiculopathy, lumba r region M54.16 ; Postlaminectomy syndrome, not elsewhere classified M96.1 ; Radiculopathy, lumbosacral region M54.17 ; Spondylosis without myelopathy or radiculopathy, lumbar region M47.816 and USP (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 Z79.891 [facility] [address] [place] [phone] 01/27/2025 Rudy Stynowick Radiculopathy, lumba r region M54.16 ; Postlaminectomy syndrome, not elsewhere classified M96.1 ; Radiculopathy, lumbosacral region M54.17 ; Spondylosis without myelopathy or radiculopathy, lumbar region M47.816 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 Z79.891 [facility] [address] [place] [address] 02/26/2025 Rudy Stynowick Radiculopathy, lumba r region M54.16 ; Postlaminectomy syndrome, not elsewhere classified M96.1 ; Radiculopathy, lumbosacral region M54.17 ; Spondylosis without myelopathy or radiculopathy, lumbar region M47.816 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 Z79.891 [facility] [address] [place] [phone] 04/02/2025 Rudy Stynowick Radiculopathy, lumba r region M54.16 ; Postlaminectomy syndrome, not elsewhere classified M96.1 ; Radiculopathy, lumbosacral region M54.17 ; Spondylosis without myelopathy or radiculopathy, lumbar region M47.816 and USP (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 Z79.891 [facility] [address] [place] [phone] 04/30/2025 Rudy Stynowick Radiculopathy, lumba r region M54.16 ; Postlaminectomy syndrome, not elsewhere classified M96.1 ; Radiculopathy, lumbosacral region M54.17 ; Spondylosis without myelopathy or radiculopathy, lumbar region M47.816 and USP (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 Z79.891 [facility] [address] [place] [address] 05/30/2025 Rudy Stynowick [facility] [address] [place] [phone] 06/03/2025 Rudy Stynowick Radiculopathy, lumba r region M54.16 ; Postlaminectomy syndrome, not elsewhere classified M96.1 ; Radiculopathy, lumbosacral region M54.17 ; Spondylosis without myelopathy or radiculopathy, lumbar region M47.816 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 Z79.891 [facility] [address] [place] [phone] 07/02/2025 Rudy Stynowick Radiculopathy, lumba r region M54.16 ; Postlaminectomy syndrome, not elsewhere classified M96.1 ; Radiculopathy, lumbosacral region M54.17 ; Spondylosis without myelopathy or radiculopathy, lumbar region M47.816 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 Z79.891 ASSESSMENTS Encounter Date Diagnosis Assessment Notes Treatment Notes Treatment Clinical Notes Section Notes 10/31/2024 Radiculopathy, lumbar region (ICD-10 - M54.16) 10/02/2024 Radiculopathy, lumbar region (ICD-10 - M54.16) 09/30/2024 Radiculopathy, lumbar region (ICD-10 - M54.16) 08/14/2024 Radiculopathy, lumbar region (ICD-10 - M54.16) 07/17/2024 Radiculopathy, lumbar region (ICD-10 - M54.16) 07/02/2025 Radiculopathy, lumbar region (ICD-10 - M54.16) 06/03/2025 Radiculopathy, lumbar region (ICD-10 - M54.16) 04/30/2025 Radiculopathy, lumbar region (ICD-10 - M54.16) 04/02/2025 Radiculopathy, lumbar region (ICD-10 - M54.16) 02/26/2025 Radiculopathy, lumbar region (ICD-10 - M54.16) 01/27/2025 Radiculopathy, lumbar region (ICD-10 - M54.16) 12/30/2024 Radiculopathy, lumbar region (ICD-10 - M54.16) 11/04/2024 Radiculopathy, lumbar region (ICD-10 - M54.16) 12/02/2024 Radiculopathy, lumbar region (ICD-10 - M54.16) 07/17/2024 Radiculopathy, lumbosacral region (ICD-10 - M54.17) [...] to fully comply with the above. [place] and were appropriate 08/14/2024 [...] to fully comply with the above. [facility] PDMP were reviewed and were appropriate 09/30/2024 Postlaminectomy syndrome, not elsewhere classified (ICD-10 - [...] to fully comply with the above. [facility] PDMP were reviewed and were appropriate 10/02/2024 Radiculopathy, lumbosacral region (ICD-10 - M54.17) 10/02/2024 Postlaminectomy syndrome, not elsewhere classified (ICD-10 - [...] to fully comply with the above. [facility] PDMP were reviewed and were appropriate 10/31/2024 Postlaminectomy syndrome, not elsewhere classified (ICD-10 - [...] to fully comply with the above. [facility] PDMP were reviewed and were appropriate 11/04/2024 Radiculopathy, lumbosacral region (ICD-10 - M54.17) 11/04/2024 Postlaminectomy syndrome, not elsewhere classified (ICD-10 - [...] to fully comply with the above. [facility] PDMP were reviewed and were appropriate 12/02/2024 Radiculopathy, lumbosacral region (ICD-10 - M54.17) 12/02/2024 Postlaminectomy syndrome, not elsewhere classified (ICD-10 - [...] to fully comply with the above. [facility] PDMP were reviewed and were appropriate 12/30/2024 Radiculopathy, lumbosacral region (ICD-10 - M54.17) 12/30/2024 Postlaminectomy syndrome, not elsewhere classified (ICD-10 - [...] to fully comply with the above. [facility] PDMP were reviewed and were appropriate 01/27/2025 Radiculopathy, lumbosacral region (ICD-10 - M54.17) 01/27/2025 Postlaminectomy syndrome, not elsewhere classified (ICD-10 - [...] to fully comply with the above. [place] and were appropriate 02/26/2025 Radiculopathy, lumbosacral region (ICD-10 - M54.17) 02/26/2025 Postlaminectomy syndrome, not elsewhere classified (ICD-10 - [...] to fully comply with the above. [facility] PDMP were reviewed and were appropriate 04/02/2025 Radiculopathy, lumbosacral region (ICD-10 - M54.17) 04/02/2025 Postlaminectomy syndrome, not elsewhere classified (ICD-10 [...] to fully comply with the above. [facility] PDMP were reviewed and were appropriate 04/30/2025 Radiculopathy, lumbosacral region (ICD-10 - M54.17) 04/30/2025 Postlaminectomy syndrome, not elsewhere classified (ICD-10 [...] to fully comply with the above. [facility] PDMP were reviewed and were appropriate 06/03/2025 Radiculopathy, lumbosacral region (ICD-10 - M54.17) 06/03/2025 Postlaminectomy syndrome, not elsewhere classified (ICD-10 [...] to fully comply with the above. [place] and were appropriate 07/02/2025 Radiculopathy, lumbosacral region (ICD-10 - M54.17) 07/02/2025 Postlaminectomy syndrome, not elsewhere classified (ICD-10 [...] to fully comply with the above. [place] and were appropriate 07/02/2025 Spondylosis without myelopathy or radiculopathy, lumbar region (ICD-10 - M47.816) 06/03/2025 Spondylosis without myelopathy or radiculopathy, lumbar region (ICD-10 - M47.816) 04/30/2025 Spondylosis without myelopathy or radiculopathy, lumbar region (ICD-10 - M47.816) 04/02/2025 Spondylosis without myelopathy or radiculopathy, lumbar region (ICD-10 - M47.816) 02/26/2025 Spondylosis without myelopathy or radiculopathy, lumbar region (ICD-10 - M47.816) 01/27/2025 Spondylosis without myelopathy or radiculopathy, lumbar region (ICD-10 - M47.816) 07/17/2024 Spondylosis without myelopathy or radiculopathy, lumbar region (ICD-10 - M47.816) 12/30/2024 Spondylosis without myelopathy or radiculopathy, lumbar region (ICD-10 - M47.816) 12/02/2024 Spondylosis without myelopathy or radiculopathy, lumbar region (ICD-10 - M47.816) 08/14/2024 Spondylosis without myelopathy or radiculopathy, lumbar region (ICD-10 - M47.816) 11/04/2024 Spondylosis without myelopathy or radiculopathy, lumbar region (ICD-10 - M47.816) 10/31/2024 Radiculopathy, lumbosacral region (ICD-10 - M54.17) 10/02/2024 Spondylosis without myelopathy or radiculopathy, lumbar region (ICD-10 - M47.816) 09/30/2024 Radiculopathy, lumbosacral region (ICD-10 - M54.17) 12/30/2024 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 (ICD-10 - Z79.891) The patient submitted a urine sample for drug screening to ensure compliance. 07/17/2024 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 (ICD-10 - Z79.891) 12/02/2024 USP (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 (ICD-10 - Z79.891) 08/14/2024 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 (ICD-10 - Z79.891) 11/04/2024 USP (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 (ICD-10 - Z79.891) 09/30/2024 Spondylosis without myelopathy or radiculopathy, lumbar region (ICD-10 - M47.816) 10/31/2024 Spondylosis without myelopathy or radiculopathy, lumbar region (ICD-10 - M47.816) 10/02/2024 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 (ICD-10 - Z79.891) The patient submitted a urine sample for drug screening to ensure compliance. 07/02/2025 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 (ICD-10 - Z79.891) The patient submitted a urine sample for drug screening to ensure compliance. 06/03/2025 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 (ICD-10 - Z79.891) 04/30/2025 USP (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 (ICD-10 - Z79.891) 04/02/2025 USP (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 (ICD-10 - Z79.891) The patient submitted a urine sample for drug screening to ensure compliance. 02/26/2025 USP (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 (ICD-10 - Z79.891) 01/27/2025 USP (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 (ICD-10 - Z79.891) 10/31/2024 USP (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 (ICD-10 - Z79.891) 09/30/2024 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 (ICD-10 - [...] with Patient and Medical Decision Makin minutes 10/02/2024 Other The above-named patient was evaluated in [...] with Patient and Medical Decision Makin minutes 11/04/2024 Other The above-named patient was evaluated in [...] with Patient and Medical Decision Makin minutes 12/02/2024 Other The above-named patient was evaluated in [...] with Patient and Medical Decision Makin minutes 12/30/2024 Other The above-named patient was evaluated in [...] with Patient and Medical Decision Makin minutes 01/27/2025 Other The above-named patient was evaluated in [...] with Patient and Medical Decision Makin minutes 02/26/2025 Other The above-named patient was evaluated in [...] with Patient and Medical Decision Makin minutes 04/02/2025 Other The above-named patient was evaluated [...] with Patient and Medical Decision Makin minutes 04/30/2025 Other The above-named patient was evaluated [...] with Patient and Medical Decision Makin minutes 06/03/2025 Other The above-named patient was evaluated [...] with Patient and Medical Decision Makin minutes 07/02/2025 Other The above-named patient was evaluated [...] Lumbar Spine with and without Cont rast ([id number]) 11/06/2020 [facility] 03/03/2022 [facility] 04/12/2023 [facility] 07/07/2023 [facility] 09/01/2023 [facility] 01/23/2024 [facility] 04/10/2024 [facility] 05/17/2024 [facility] 10/02/2024 [facility] 12/30/2024 [facility] 04/01/2025 [facility] 07/02/2025 Next Appt Details Provider Name:Rudy coelho, 07/31/2025 07:30:00 AM, [address] [place], [address], Insurance Providers Payer Name Payer Address Payer Phone Subscriber Number Group Number Insured Name Patient Relationship to Insured Coverage Start Date Coverage End Date [facility] [address] [place] [phone] [id number] JENNIFER BRANNON Self - patient is the insured MEDICAL (GENERAL) HISTORY Medical History History ICD Code Hypertension Coronary arteriosclerosis Stented coronary artery GERD Hyperlipidemia Surgical History Surgery Date(Month/Year) Lumbar laminectomy 2000
--- NOTE | 2025-07-08 21:13 | ED.EXTPRO ---
HPI - Extremity Problem General Chief complaint: Extremity Problem,Nontraumatic Stated complaint: L. elbow pain and finger swelling Time Seen by Provider: 07/08/25 20:37 History of Present Illness HPI Narrative: Patient is a 54-year-old male who presents to the ER with complaints left elbow pain that started approximately 1/2 weeks ago. He reports the pain has not traveled down along his fibula and has led to swelling in his wrist and hand. Patient reports this is never happened to him before. He endorses decreased range of motion in his hand and pain when he moves his left thumb across his hand. Patient endorses a history of a CABG two years ago, high blood pressure, vertebral fracture, and chronic back pain. He denies any open areas on his left arm, recent fevers, purulent drainage from the site. Related Data Home Medications ?Medication ?Instructions ?Recorded ?Confirmed ?Last Taken ?Type ezetimibe 10 mg tablet (Zetia) 10 mg PO DAILY 01/02/23 10/25/24 09/19/24 History pregabalin 25 mg capsule (Lyrica) 25 mg PO DAILY 01/02/23 10/25/24 09/18/24 History albuterol 90 mcg/actuation aerosol 90 mcg inhalation PRN 03/04/23 10/25/24 09/19/24 History inhaler lisinopril 10 mg tablet 10 mg PO DAILY 03/04/23 10/25/24 09/18/24 History albuterol sulfate 2.5 mg/3 mL 2.5 mg inhalation Q4H PRN 09/20/24 10/25/24 09/19/24 History (0.083 %) solution for nebulization shortness of breath or wheezing albuterol sulfate 90 mcg/actuation 2 puff inhalation Q4H PRN 09/20/24 10/25/24 09/19/24 History aerosol inhaler shortness of breath or wheezing atorvastatin 80 mg tablet 80 mg PO QPM 09/20/24 10/25/24 09/18/24 History buprenorphine HCl 75 mcg buccal 75 mcg buccal Q12H 09/20/24 10/25/24 09/19/24 History film (Belbuca) cilostazol 50 mg tablet 50 mg PO Q12H 09/20/24 10/25/24 09/19/24 History empagliflozin 10 mg tablet 10 mg PO DAILY 09/20/24 10/25/24 09/19/24 History (Jardiance) furosemide 20 mg tablet 20 mg PO DAILY PRN edema 09/20/24 10/25/24 Unknown History ipratropium bromide 0.02 % 0.5 mg continuous nebulization Q4H 09/20/24 10/25/24 09/19/24 History solution for inhalation PRN shortness of breath or wheezing metoprolol tartrate 25 mg tablet 25 mg PO Q12H 09/20/24 10/25/24 09/19/24 History rivaroxaban 2.5 mg tablet (Xarelto) 2.5 mg PO BID 09/20/24 10/25/24 09/19/24 History Held on 09/25/24. Instructions: Resume on 10/01/24. Do not restart if you are have excess bruising or abnormal bleeding. tizanidine 2 mg tablet 2 mg PO Q12H PRN muscle spasticity 09/20/24 10/25/24 09/19/24 History Allergies Allergy/AdvReac Type Severity Reaction Status Date / Time cortisone Allergy Severe Anaphylactic Verified 07/08/25 19:18 Shock metronidazole (From Flagyl) Allergy Unknown Verified 07/08/25 19:18 [facility] Past Medical History Medical History (Updated 07/08/25 @ 23:01 by Leonor Romo APRN) Chronic low back pain Hyperlipidemia CAD (coronary artery disease) Hypertension COPD (chronic obstructive pulmonary disease) Surgical History Surgical History (Updated 10/21/24 @ 09:05 by MARY GRACE Latif) Hx laparoscopic cholecystectomy 09/24/[address] 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 He quit tobacco 7 years ago after smoking 1 pack per day for 20 years. He drinks on average about 1 alcoholic drink per month. He uses medical marijuana about 10 mg at night. No history of drug use or IV drug use. Lives at home with his and 2 adult children. He is a full code. He nominates his to be the individual would make medical decisions for him if he is unable. Smoking packs per day: 1 Smoking cigarettes per day: 20.0 Years smoked: 20 Smoking pack-years: 20.00 Smoking status: Former smoker Tobacco type: cigarettes Second hand tobacco smoke exposure: No Smoking end date: 09/25/15 Alcohol intake: current Drinks per week: 1 Substance use: current Substance use type: marijuana Other substance usage details: marijuana, has medical card. infrequent use Do You Feel Safe in your Home?: Yes Lack of Transportation: No Lack of Food: Never True Current Housing: I Have Housing Concerned About Future Housing: No Difficulty Paying Gas/Electric Bills: No Difficulty Paying for Meds: No Currently Unemployed: No Education: Trade/Vocational Certificate Difficulty w/ Childcare or Family Care: No Spiritual care concerns: No Exam Narrative: flexor sheath, symmetric enlargement of the affected digit, slightly flexed finger at rest, and pain along the tendon with passive extension Course Vital Signs Vital signs: Vital Signs Temperature 36.6 C 07/08/25 19:18 Pulse Rate 84 07/08/25 19:18 Respiratory Rate 14 07/08/25 19:18 Blood Pressure 113/71 07/08/25 19:18 Pulse Oximetry 94 07/08/25 19:18 Oxygen Delivery Room Air 07/08/25 19:18 Temperature 36.6 C 07/08/25 19:18 Pulse Rate 84 07/08/25 19:18 Respiratory Rate 14 07/08/25 19:18 Blood Pressure 113/71 07/08/25 19:18 Pulse Oximetry 94 07/08/25 19:18 Oxygen Delivery Room Air 07/08/25 19:18 MDM - Extremity (Nontraumatic) MDM Narrative Medical decision making narrative: Patient is a 54-year-old male who presents to the ER with complaints left elbow pain that started approximately 1/2 weeks ago. He reports the pain has not traveled down from his elbow to his his wrist and hand, along with swelling. Patient reports this has never happened to him before. He endorses decreased range of motion in his hand and pain when he moves his left thumb across his hand. Patient endorses a history of a CABG two years ago, high blood pressure, vertebral fracture, and chronic back pain. He denies any open areas on his left arm, recent fevers, purulent drainage from the site. Labs Ordered: CBC, CMP Imaging Ordered: CT left upper extremity Medications Ordered: Keflex, patient declines pain medicine Results: Pt's CT scan indicates Mild subcutaneous edema in the posterior elbow and along the volar aspect of the wrist that may represent cellulitis in the appropriate clinical setting. There is no soft tissue gas or drainable fluid collections. Diagnosis: Left upper extremity cellulitis Patient Education/Shared MDM: Results of imaging shared with patient. He continues to decline pain medication but will be given his 1st dose of oral antibiotic here in the ER. Patient strongly advised to follow-up with his PCP in the next 2-3 days to ensure he is healing. He will be discharged home with a prescription for Keflex. Strict return precautions provided. Patient verbalized understanding and is in agreement with plan. Vital signs stable at time of discharge. All questions answered. Differential Diagnosis Differential diagnosis: Likely cellulitis, deep venous thrombosis of upper extremity and other (Abscess) Lab Data 07/08/25 21:15 07/08/25 21:15 Labs: Lab Results 07/08/25 Range/Units 21:15 WBC 8.9 (4.5-10.0) K/mm3 RBC 5.55 (4.6-6.20) M/mm3 Hgb 17.0 (14.0-18.0) g/dL Hct 51.1 (42.0-52.0) % MCV 92.1 (80-100) fl MCH 30.6 (26-34) pg MCHC 33.3 (32-36) g/dl RDW 13.3 (11.5-14.5) % Plt Count 199 (150-375) k/mm3 MPV 9.7 (7.4-10.4) fl Immature Gran % (Auto) 0.2 (0-0.5) % Neut % (Auto) 59.7 (45.5-73.1) % Lymph % (Auto) 30.0 (18.3-44.2) % Randall % (Auto) 8.4 (2.6-8.5) % Eos % (Auto) 1.2 (0-4.4) % Baso % (Auto) 0.5 (0.2-1.2) % Lymph # (Auto) 2.66 (0.9-3.2) K/mm3 Randall # (Auto) 0.7 H (0.1-0.6) K/mm3 Eos # (Auto) 0.1 (0-0.3) K/mm3 Baso # (Auto) 0.0 (0.0-0.1) K/mm3 Abs Immat Gran (auto) 0.02 (0.00-0.031) K/mm3 Absolute Neuts (auto) 5.3 (1.3-6.7) K/mm3 Absolute Nucleated RBC 0.000 (0.0-0.012) K/mm3 Nucleated RBC % 0.0 (0.0-0.2) % Sodium 139 (137-145) mmol/L Potassium 4.4 (3.4-5.0) mmol/L Chloride 102 (98-107) mmol/L Carbon Dioxide 25 (22-30) mmol/L Anion Gap 12 (4-12) mmol/L BUN 23 H D (9-20) mg/dL Creatinine 1.06 (0.7-1.3) mg/dL Estim Creat Clear Calc Not Reportable Estimated GFR > 60 (59 - ) Glucose 77 (65-110) mg/dL Calcium 10.1 (8.4-10.2) mg/dL Total Bilirubin 0.6 (0.2-1.3) mg/dL AST 35 (17-59) U/L ALT 42 (6-50) U/L Alkaline Phosphatase 93 (38-126) U/L Total Protein 8.4 H (6.3-8.2) g/dL Albumin 4.9 (3.5-5.1) g/dL Imaging Data Attestation: I personally reviewed and interpreted this imaging study as follows: Radiologist's impression: Impressions Wrist X-Ray 07/08/25 19:30 IMPRESSION: No acute fracture or dislocation. Elbow X-Ray 07/08/25 19:40 IMPRESSION: No acute fracture or dislocation. Upper Extremity CT 07/08/25 22:17 IMPRESSION: Mild subcutaneous edema in the posterior elbow and along the volar aspect of the wrist that may represent cellulitis in the appropriate clinical setting. There is no soft tissue gas or drainable fluid collections. All CT scans at this facility are performed using low dose modulation techniques as appropriate to perform exam including the following: automated exposure control; use of iterative reconstruction technique; adjustment of the mA and/or kV according to patient size (this includes techniques or standardized protocols for targeted exams where dose is matched to indication/reason for exam). Discharge Plan Discharge Clinical Impression: Cellulitis, Edema of left upper extremity Patient Disposition: Home Condition: Stable Instructions: Antibiotic Form, Cellulitis (ED) Additional Instructions: Please return to the ER with any worsening symptoms. Follow-up with primary care provider in the next 2-3 days to ensure you are healing. Take all medications as prescribed, including regularly scheduled medications. You may take Tylenol as needed for pain control. Please keep the site above the level of your heart to decrease swelling. Please complete your full dose of antibiotics. Patient Language: Faroese Prescriptions: New cephalexin 500 mg capsule 500 mg PO Q8H 7 Days Qty: 21 0RF No Action pregabalin [Lyrica] 25 mg capsule 25 mg PO DAILY Patient Comments: patient takes PM medications at 0000 and AM at 1200 due to work schedule ezetimibe [Zetia] 10 mg tablet 10 mg PO DAILY albuterol sulfate 2.5 mg /3 mL (0.083 %) solution for nebulization 2.5 mg inhalation Q4H PRN (Reason: shortness of breath or wheezing) atorvastatin 80 mg tablet 80 mg PO QPM buprenorphine HCl [Belbuca] 75 mcg film 75 mcg BUCCAL Q12H cilostazol 50 mg tablet 50 mg PO Q12H Jardiance 10 mg tablet 10 mg PO DAILY furosemide 20 mg tablet 20 mg PO DAILY PRN (Reason: edema) ipratropium bromide 0.02 % solution 0.5 mg continuous nebulization Q4H PRN (Reason: shortness of breath or wheezing) metoprolol tartrate 25 mg tablet 25 mg PO Q12H Xarelto 2.5 mg tablet 2.5 mg PO BID tizanidine 2 mg tablet 2 mg PO Q12H PRN (Reason: muscle spasticity) albuterol sulfate 90 mcg/actuation HFA aerosol inhaler 2 puff INHALATION Q4H PRN (Reason: shortness of breath or wheezing) acetaminophen 325 mg Tablet 650 mg PO Q4H PRN (Reason: Mild Pain (1-3) Or Fever) Qty: 60 0RF aspirin 81 mg Tablet,Delayed Release (Dr/Ec) 81 mg PO QAM Qty: 30 0RF lisinopril 10 mg tablet 10 mg PO DAILY albuterol 90 mcg/actuation Aerosol 90 mcg INHALATION PRN nitroglycerin 0.4 mg tablet, sublingual 0.4 mg sublingual Q5M PRN (Reason: chest pain) Qty: 10 0RF Rx Instructions: do not exceed 3 doses per episode ondansetron 4 mg tablet,disintegrating 4 mg PO Q6H Qty: 16 0RF Follow-up/Referrals: Deidre,MD Doc [Primary Care Provider, Family Practice] Stand Alone Forms: Work/School Release IP Time of Disposition: 23:03
[2025-07-08 21:20] LABS: Hematocrit 51.1 % (42.0-52.0); Hemoglobin 17.0 g/dL (14.0-18.0); Immature Granulocyte Percent A 0.2 % (0-0.5); Lymphocytes Absolute Auto 2.66 K/mm3 (0.9-3.2); Mean Corpuscular HGB Conc 33.3 g/dl (32-36); Mean Corpuscular Hemoglobin 30.6 pg (26-34); Mean Corpuscular Volume 92.1 fl (80-100); Nucleated Red Blood Cells Absolute Auto 0.000 K/mm3 (0.0-0.012); Nucleated Red Blood Cells Perc 0.0 % (0.0-0.2); Platelet Count Result 199 k/mm3 (150-375); Red Blood Count 5.55 M/mm3 (4.6-6.20); White Blood Count 8.9 K/mm3 (4.5-10.0)
[2025-07-08 21:37] LABS: Alanine Aminotransferase 42 U/L (6-50); Albumin Level 4.9 g/dL (3.5-5.1); Alkaline Phosphatase 93 U/L (38-126); Anion Gap 12 mmol/L (4-12); Aspartate Amino Transferase 35 U/L (17-59); Bilirubin,Total 0.6 mg/dL (0.2-1.3); Blood Urea Nitrogen 23 mg/dL (9-20); Calcium 10.1 mg/dL (8.4-10.2); Carbon Dioxide 25 mmol/L (22-30); Chloride 102 mmol/L (98-107); Estimated Glomerular Filt Rate > 60; Glucose 77 mg/dL (65-110); Potassium 4.4 mmol/L (3.4-5.0); Sodium 139 mmol/L (137-145); Total Protein 8.4 g/dL (6.3-8.2)
[2025-07-08] MEDS: CEPHALEXIN 500 MG CAPSULE PO (23:00)
[2025-07-08 23:12] VITALS: BP 120/81; PULSE 76; RESP 18; O2SAT 96
== END 2025-07-08 23:13 | disposition home or self-care (01) ==
PROVIDERS: Emergency Provider Registered Nurse; PCP Family Medicine
DX: L03.114 Cellulitis of left upper limb (principal); R60.0 Localized edema; I10 Essential (primary) hypertension; I25.10 Atherosclerotic heart disease of native coronary artery without angina pectoris; Z95.1 Presence of aortocoronary bypass graft; Z87.891 Personal history of nicotine dependence; F12.90 Cannabis use, unspecified, uncomplicated
CPT/HCPCS: 36415; 73080; 73100; 73201; 80053; 85025; 99284; A4565; A9270; Q9967

== ENCOUNTER 2025-08-18 09:31 | Observation (INO) | payer BC, SELFPAY ==
[2025-08-18] VITALS (8 sets, daily range): BP systolic 103–139; BP diastolic 62–79; PULSE 65–80; RESP 12–16; TEMP 35.9–37; O2SAT 93–96; BMI 33.4
--- NOTE | ~2025-08-18 | XR_ITS ---
EXAMINATION: XR chest 1V portable COMPARISON: No comparisons available. HISTORY: dizziness, RT SIDED HEADACHE, DISORIENTED FINDINGS: Mild pulmonary venous congestion. No pneumothorax. Heart is normal size. Mediastinal and hilar contours are within normal limits. Post sternotomy. Miscellaneous: None Impression: No acute cardiopulmonary abnormality. Reviewed, dictated and finalized at location P. MET COFFEE ATTENDANT Impression: No acute cardiopulmonary abnormality.
--- NOTE | ~2025-08-18 | CT_ITS ---
EXAMINATION: CT angiogram head and neck: DATE: 08/18/2025. INDICATION: Dizziness. TECHNIQUE: CT angiogram with 100 cc of IV contrast through the head and neck was performed. Multiplanar and 3-D reconstruction images were obtained. COMPARISON: CT head without contrast dated 08/18/2025. FINDINGS: Minimal atherosclerotic disease at the origin of brachiocephalic and left subclavian from the aortic arch. Left vertebral artery arises from the aorta. Vertebral arteries are patent in the neck on both sides. Calcific atherosclerotic plaque of the carotid bulbs on both sides producing significantly less than 50% diameter narrowing. No hemodynamically significant disease of the common and internal carotid arteries are seen in the neck. Mild to moderate calcific atherosclerotic changes of the intracranial portion of internal carotid arteries. Vertebral and basilar arteries are patent at the skull base. Posterior cerebral arteries are patent. Posterior cerebral arteries are supplied from anterior circulation on both sides. Anterior cerebral arteries and middle cerebral arteries are patent on both sides. Dural venous sinuses are patent. IMPRESSION: 1. Vertebral arteries are patent in the neck on both sides. Mild atherosclerotic disease with calcified plaque at the carotid bulbs on both sides in the neck producing less than diameter disease. No hemodynamically significant lesions in the neck. 2. Mild to moderate calcific atherosclerotic disease of the intracranial portion of internal carotid arteries. No significant obstructive changes of the arteries of [place]. Dural venous sinuses are patent. Reviewed, dictated and finalized at location T. AVER AUTOMATIC IMPRESSION: 1. Vertebral arteries are patent in the neck on both sides. Mild atheroscleroti c disease with calcified plaque at the carotid bulbs on both sides in the neck producing less than diameter disease. No hemodynamically significant lesions in the neck. 2. Mild to moderate calcific atherosclerotic disease of the intracranial portio n of internal carotid arteries. No significant obstructive changes of the arter ies of [place]. Dural venous sinuses are patent.
--- NOTE | ~2025-08-18 | CT_ITS ---
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 Technique: Axial images obtained of the brain without contrast. One or more of the following dose reduction techniques were used: automated exposure control, adjustment of the mA and/or kV according to patient size, use of iterative reconstruction technique. Findings: No acute infarct or parenchymal hemorrhage. No abnormal mass or mass effect. No midline shift. No extra-axial fluid collections. No hydrocephalus. Mastoid air cells unremarkable. Sinuses and orbits unremarkable. No acute fracture. No significant facial or scalp soft tissue swelling evident. No radiopaque foreign body is seen. Impression: 1.No acute intracranial abnormality. Reviewed, dictated and finalized at location P. CIPAL ANDROID DEVELOPER Impression: 1.No acute intracranial abnormality.
--- NOTE | ~2025-08-18 | MR_ITS ---
EXAMINATION: MR brain/brain stem wo/w con DATE: 08/19/2025 12:55 INDICATION: Dizziness TECHNIQUE: Magnetic resonance imaging (MRI) of the brain and brainstem was performed without and with 20 mL Multihance intravenous contrast. Sequences included sagittal and axial T1-weighted SE, axial diffusion-weighted FS SE, axial 3D SWAN, axial T2-weighted FLAIR, and axial T2-weighted FSE. Postcontrast axial and coronal T1-weighted SE was obtained. Apparent diffusion coefficient (ADC) maps were created. COMPARISON: Head CT and CT angiogram dated 08/18/2025 FINDINGS: There are no areas of restricted diffusion to suggest acute infarction. No intracranial hemorrhage or abnormal intracranial mass lesion. There are scattered areas of nonspecific increased T2-weighted signal intensity in the cerebral white matter, predominantly involving the deep and periventricular whi te matter. There are no intraparenchymal signal abnormalities seen on the other pulse sequences. The ventricles are symmetric and normal in size. There are no abnormal extra-axial fluid collections. Flow voids are seen in the cerebral arteries on the T2-weighted sequences consistent with their expected patency. Leftward deviation of the nasal septum. Visualized orbits and soft tissues are unremarkable. There are no areas of abnormal enhancement on the post contrast images. IMPRESSION: 1. Moderate scattered nonspecific periventricular predominant white matter T2 hyperintensity consistent with chronic small vessel ischemic disease. No other acute intracranial process or abnormally enhancing brain lesions. Reviewed, dictated and finalized at location A. T RESPONDER IMPRESSION: 1. Moderate scattered nonspecific periventricular predominant white matter T2 h yperintensity consistent with chronic small vessel ischemic disease. No other a cute intracranial process or abnormally enhancing brain lesions.
--- NOTE | 2025-08-18 09:37 | PC.NURSE ---
Pt denies any new medications or any recent falls. Pt states there was a virus going around work last week and he was prescribed 2 antibiotics and prednisone and has finished all of those medications.
--- NOTE | 2025-08-18 09:51 | ECG_ITS ---
Test Date: 2025-08-18 10:20:21 Measurements Intervals [place] Rate: 72 P: 31 SD: 192 QRS: 17 QRSD: 98 T: -10 QT: 376 QTc: 413 Interpretive Statements SINUS RHYTHM NONSPECIFIC T-WAVE ABNORMALITY ABNORMAL ECG Compared to ECG 09/20/2024 11:09:41 Sinus tachycardia no longer present Incomplete right bundle-branch block no longer present T-wave abnormality still present Electronically Signed On 08-18-2025 13:55:12 PROGRAM MANAGER by Yogesh Pineda M.D.
--- NOTE | 2025-08-18 10:19 | ED.GENADULT ---
HPI - General Adult General Chief complaint: Unspecified <Julieta Keen PA-C - Last Filed: 08/19/25 11:33> Stated complaint: multiple complaints x 1 week <Julieta Keen PA-C - Last Filed: 08/19/25 11:33> Time Seen by Provider: 08/18/25 09:42 <Julieta Keen PA-C - Last Filed: 08/19/25 11:33> Source: patient <Julieta Keen PA-C - Last Filed: 08/19/25 11:33> Mode of arrival: ambulatory <JUAN JOSE Espinoza Last Filed: 08/19/25 11:33> Limitations: no limitations <JUAN JOSE Espinoza Last Filed: 08/19/25 11:33> History of Present Illness HPI narrative: This is a 54 year old male that presents to the ER for dizziness. Ongoing over the last week. Reports dizzy spells. Feeling off balance. Reports a funny feeling on the right side of his head. Denies vision changes, vomiting, numbness, weakness. <Julieta Keen PA-C - Last Filed: 08/19/25 11:33> Related Data Home medications: Home Medications ?Medication ?Instructions ?Recorded ?Confirmed ?Last Taken ?Type ezetimibe 10 mg tablet (Zetia) 10 mg PO DAILY 01/02/23 08/18/25 08/18/25 History pregabalin 25 mg capsule (Lyrica) 25 mg PO DAILY 01/02/23 08/18/25 08/18/25 History albuterol 90 mcg/actuation aerosol 90 mcg inhalation PRN 03/04/23 08/18/25 09/19/24 History inhaler lisinopril 10 mg tablet 5 mg PO DAILY 03/04/23 08/18/25 08/18/25 History albuterol sulfate 2.5 mg/3 mL 2.5 mg inhalation Q4H PRN 09/20/24 08/18/25 09/19/24 History (0.083 %) solution for nebulization shortness of breath or wheezing albuterol sulfate 90 mcg/actuation 2 puff inhalation Q4H PRN 09/20/24 08/18/25 09/19/24 History aerosol inhaler shortness of breath or wheezing atorvastatin 80 mg tablet 80 mg PO QPM 09/20/24 08/18/25 08/18/25 History buprenorphine HCl 75 mcg buccal 75 mcg buccal Q12H 09/20/24 08/18/25 08/18/25 History film (Belbuca) empagliflozin 10 mg tablet 10 mg PO DAILY 09/20/24 08/18/25 08/18/25 History (Jardiance) furosemide 20 mg tablet 20 mg PO DAILY PRN edema 09/20/24 08/18/25 08/18/25 History ipratropium bromide 0.02 % 0.5 mg continuous nebulization Q4H 09/20/24 08/18/25 08/18/25 History solution for inhalation PRN shortness of breath or wheezing metoprolol tartrate 25 mg tablet 25 mg PO Q12H 09/20/24 08/18/25 08/18/25 History rivaroxaban 2.5 mg tablet (Xarelto) 2.5 mg PO BID 09/20/24 08/18/25 09/19/24 History Held on 09/25/24. Instructions: Resume on 10/01/24. Do not restart if you are have excess bruising or abnormal bleeding. tizanidine 2 mg tablet 2 mg PO Q12H PRN muscle spasticity 09/20/24 08/18/25 08/18/25 History <Julieta Keen PA-C - Last Filed: 08/19/25 11:33> Allergies/adverse reactions: Allergies Allergy/AdvReac Type Severity Reaction Status Date / Time cortisone Allergy Severe Anaphylactic Verified 08/18/25 14:42 Shock metronidazole (From Flagyl) Allergy Unknown Verified 08/18/25 14:42 <Julieta Keen PA-C - Last Filed: 08/19/25 11:33> Review of Systems Review of Systems: All systems reviewed & are unremarkable except as noted in HPI and below <Julieta Keen PA-C - Last Filed: 08/19/25 11:33> [facility] Past Medical History Medical History: Medical History Chronic low back pain Hyperlipidemia CAD (coronary artery disease) Hypertension COPD (chronic obstructive pulmonary disease) <Julieta Keen PA-C - Last Filed: 08/19/25 11:33> Surgical History Surgical History: Surgical History Hx laparoscopic cholecystectomy 09/24/[address] 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 He quit tobacco 7 years ago after smoking 1 pack per day for 20 years. He drinks on average about 1 alcoholic drink per month. He uses medical marijuana about 10 mg at night. No history of drug use or IV drug use. Lives at home with his and 2 adult children. He is a full code. He nominates his to be the individual would make medical decisions for him if he is unable. Smoking packs per day: 1 Smoking cigarettes per day: 20.0 Years smoked: 20 Smoking pack-years: 20.00 Smoking status: Former smoker Tobacco type: cigarettes Second hand tobacco smoke exposure: No Smoking end date: 09/18/18 Alcohol intake: current Drinks per week: 1 Substance use: current Substance use type: marijuana Other substance usage details: marijuana, has medical card. infrequent use Do You Feel Safe in your Home?: Yes Lack of Transportation: No Lack of Food: Never True Current Housing: I Have Housing Concerned About Future Housing: No Difficulty Paying Gas/Electric Bills: No Difficulty Paying for Meds: No Currently Unemployed: No Education: Trade/Vocational Certificate Difficulty w/ Childcare or Family Care: No Spiritual care concerns: No <Julieta Keen PA-C - Last Filed: 08/19/25 11:33> Exam Narrative: GENERAL: Well-appearing, well-nourished, and in no acute distress. HEAD: Normocephalic, atraumatic. EYES: PERRLA and EOMI. ENT: Nares clear, no rhinorrhea or epistaxis. Mucous membranes moist. Oropharynx without tonsillar hypertrophy exudate or other lesions. Bilateral TMs pearly perales non-bulging NECK: Supple. No adenopathy or masses. CHEST: Clear to auscultation. No respiratory distress. No wheezes rales or rhonchi HEART: Regular rate and rhythm. No murmur heard. Normal peripheral pulses. ABDOMEN: Soft, nontender, nondistended, normal active bowel sounds. EXTREMITIES: Normal range of motion. No edema. Strength equal in bilateral upper and lower extremities (5/5) SKIN: Warm, dry, no rash. NEURO: No focal deficits. Alert and oriented x3. Cranial nerves 2-12 grossly intact PSYCH: Normal mood and affect <Julieta Keen PA-C - Last Filed: 08/19/25 11:33> Course RN ORTHOPEDIC/PA Physician Supervision This visit was performed by both a physician and an APC. I performed all aspects of the MDM as documented. <Umer Maya MD - Last Filed: 08/19/25 17:31> Vital Signs Vital signs: Vital Signs Temperature 97.4 F L 08/18/25 09:41 Pulse Rate 70 08/18/25 09:41 Respiratory Rate 12 08/18/25 09:41 Blood Pressure 139/79 08/18/25 09:41 Pulse Oximetry 94 08/18/25 09:41 Oxygen Delivery Room Air 08/18/25 09:41 Temperature 98.6 F 08/19/25 14:00 Pulse Rate 76 08/19/25 14:00 Respiratory Rate 12 08/19/25 14:00 Blood Pressure 106/58 L 08/19/25 14:00 Pulse Oximetry 90 08/19/25 14:00 Oxygen Delivery Room Air 08/19/25 08:00 <Julieta Keen PA-C - Last Filed: 08/19/25 11:33> Vital Signs Temperature 97.4 F L 08/18/25 09:41 Pulse Rate 70 08/18/25 09:41 Respiratory Rate 12 08/18/25 09:41 Blood Pressure 139/79 08/18/25 09:41 Pulse Oximetry 94 08/18/25 09:41 Oxygen Delivery Room Air 08/18/25 09:41 Temperature 98.6 F 08/19/25 14:00 Pulse Rate 76 08/19/25 14:00 Respiratory Rate 12 08/19/25 14:00 Blood Pressure 106/58 L 08/19/25 14:00 Pulse Oximetry 90 08/19/25 14:00 Oxygen Delivery Room Air 08/19/25 08:00 <Umer Maya MD - Last Filed: 08/19/25 17:31> Medical Decision Making MDM Narrative Medical decision making narrative: Patient presents to the emergency department for dizziness, headaches. Ongoing over the last week. Patient's vitals are stable. He is neurologically intact. CBC and metabolic panel without concerning findings. Urine without evidence of infection. CT brain without acute findings. Chest x-ray without acute cardiopulmonary abnormality. Patient with continued dizziness after IV fluids, meclizine, Zofran. Will be admitted to the hospitalist service for further evaluation <Julieta Keen PA-C - Last Filed: 08/19/25 11:33> Differential Diagnosis Differential Diagnosis: Dizziness, BPPV, orthostatic hypotension, CVA, TIA <Julieta Keen PA-C - Last Filed: 08/19/25 11:33> Vital Signs Vital Signs: Vital Signs Temperature 97.4 F L 08/18/25 09:41 Pulse Rate 70 08/18/25 09:41 Respiratory Rate 12 08/18/25 09:41 Blood Pressure 139/79 08/18/25 09:41 Pulse Oximetry 94 08/18/25 09:41 Oxygen Delivery Room Air 08/18/25 09:41 Temperature 98.6 F 08/19/25 14:00 Pulse Rate 76 08/19/25 14:00 Respiratory Rate 12 08/19/25 14:00 Blood Pressure 106/58 L 08/19/25 14:00 Pulse Oximetry 90 08/19/25 14:00 Oxygen Delivery Room Air 08/19/25 08:00 <Julieta Keen PA-C - Last Filed: 08/19/25 11:33> Vital Signs Temperature 97.4 F L 08/18/25 09:41 Pulse Rate 70 08/18/25 09:41 Respiratory Rate 12 08/18/25 09:41 Blood Pressure 139/79 08/18/25 09:41 Pulse Oximetry 94 08/18/25 09:41 Oxygen Delivery Room Air 08/18/25 09:41 Temperature 98.6 F 08/19/25 14:00 Pulse Rate 76 08/19/25 14:00 Respiratory Rate 12 08/19/25 14:00 Blood Pressure 106/58 L 08/19/25 14:00 Pulse Oximetry 90 08/19/25 14:00 Oxygen Delivery Room Air 08/19/25 08:00 <Umer Maya MD - Last Filed: 08/19/25 17:31> Lab Data Lab results reviewed: Yes I reviewed the patient's lab results. <Julieta Keen PA-C - Last Filed: 08/19/25 11:33> Result diagrams: 08/19/25 05:49 08/19/25 05:49 <Julieta Keen PA-C - Last Filed: 08/19/25 11:33> Labs: Lab Results 08/18/25 08/18/25 Range/Units 10:14 11:21 WBC 10.8 H (4.5-10.0) K/mm3 RBC 5.56 (4.6-6.20) M/mm3 Hgb 17.4 (14.0-18.0) g/dL Hct 50.3 (42.0-52.0) % MCV 90.5 (80-100) fl MCH 31.3 (26-34) pg MCHC 34.6 (32-36) g/dl RDW 13.9 (11.5-14.5) % Plt Count 214 (150-375) k/mm3 MPV 9.5 (7.4-10.4) fl Immature Gran % (Auto) 0.6 H (0-0.5) % Neut % (Auto) 67.2 (45.5-73.1) % Lymph % (Auto) 24.1 (18.3-44.2) % Garrard % (Auto) 7.1 (2.6-8.5) % Eos % (Auto) 0.7 (0-4.4) % Baso % (Auto) 0.3 (0.2-1.2) % Lymph # (Auto) 2.59 (0.9-3.2) K/mm3 Garrard # (Auto) 0.8 H (0.1-0.6) K/mm3 Eos # (Auto) 0.1 (0-0.3) K/mm3 Baso # (Auto) 0.0 (0.0-0.1) K/mm3 Abs Immat Gran (auto) 0.06 H (0.00-0.031) K/mm3 Absolute Neuts (auto) 7.2 H (1.3-6.7) K/mm3 Absolute Nucleated RBC 0.000 (0.0-0.012) K/mm3 Nucleated RBC % 0.0 (0.0-0.2) % PT 15.3 H (11.1-14.7) Seconds INR 1.2 APTT 31.1 (22.3-36.8) Seconds Sodium 138 (137-145) mmol/L Potassium 4.0 (3.4-5.0) mmol/L Chloride 104 (98-107) mmol/L Carbon Dioxide 25 (22-30) mmol/L Anion Gap 9 (4-12) mmol/L BUN 18 (9-20) mg/dL Creatinine 0.92 (0.7-1.3) mg/dL Estim Creat Clear Calc 91 ml/min Estimated GFR > 60 (59 - ) Glucose 91 (65-110) mg/dL Calcium 9.3 (8.4-10.2) mg/dL Total Bilirubin 0.7 (0.2-1.3) mg/dL AST 27 (17-59) U/L ALT 35 (6-50) U/L Alkaline Phosphatase 80 (38-126) U/L Troponin I < 0.012 (0.000-0.034) ng/mL Total Protein 7.2 (6.3-8.2) g/dL Albumin 4.3 (3.5-5.1) g/dL Urine Color Yellow (Yellow) Urine Appearance Clear (Clear) Urine pH 5.5 (5.0-9.0) Ur Specific Neb[place] 1.031 (1.001-1.035) Urine Protein Negative (Negative) mg/dL Urine Glucose (UA) 3+ H (Negative) mg/dL Urine Ketones Trace H (Negative) mg/dL Ur Blood (Man) Negative (Negative) Urine Nitrate Negative (Negative) Urine Bilirubin Negative (Negative) Urine Urobilinogen 0.2 (<2.0) mg/dL Leukocyte Esterase Rfl Negative (Negative) BEBETO/UL Urine Opiates Screen Negative (Negative) Urine Methadone Screen Negative (Negative) Ur Barbiturates Screen Negative (Negative) Ur Phencyclidine Scrn Negative (Negative) Ur Amphetamine Screen Negative (Negative) U Benzodiazepines Scrn Negative (Negative) Urine Cocaine Screen Negative (Negative) U Cannabinoids Screen Negative (Negative) <Julieta Keen PA-C - Last Filed: 08/19/25 11:33> Lab Results 08/18/25 08/18/25 Range/Units 10:14 11:21 WBC 10.8 H (4.5-10.0) K/mm3 RBC 5.56 (4.6-6.20) M/mm3 Hgb 17.4 (14.0-18.0) g/dL Hct 50.3 (42.0-52.0) % MCV 90.5 (80-100) fl MCH 31.3 (26-34) pg MCHC 34.6 (32-36) g/dl RDW 13.9 (11.5-14.5) % Plt Count 214 (150-375) k/mm3 MPV 9.5 (7.4-10.4) fl Immature Gran % (Auto) 0.6 H (0-0.5) % Neut % (Auto) 67.2 (45.5-73.1) % Lymph % (Auto) 24.1 (18.3-44.2) % Garrard % (Auto) 7.1 (2.6-8.5) % Eos % (Auto) 0.7 (0-4.4) % Baso % (Auto) 0.3 (0.2-1.2) % Lymph # (Auto) 2.59 (0.9-3.2) K/mm3 Garrard # (Auto) 0.8 H (0.1-0.6) K/mm3 Eos # (Auto) 0.1 (0-0.3) K/mm3 Baso # (Auto) 0.0 (0.0-0.1) K/mm3 Abs Immat Gran (auto) 0.06 H (0.00-0.031) K/mm3 Absolute Neuts (auto) 7.2 H (1.3-6.7) K/mm3 Absolute Nucleated RBC 0.000 (0.0-0.012) K/mm3 Nucleated RBC % 0.0 (0.0-0.2) % PT 15.3 H (11.1-14.7) Seconds INR 1.2 APTT 31.1 (22.3-36.8) Seconds Sodium 138 (137-145) mmol/L Potassium 4.0 (3.4-5.0) mmol/L Chloride 104 (98-107) mmol/L Carbon Dioxide 25 (22-30) mmol/L Anion Gap 9 (4-12) mmol/L BUN 18 (9-20) mg/dL Creatinine 0.92 (0.7-1.3) mg/dL Estim Creat Clear Calc 91 ml/min Estimated GFR > 60 (59 - ) Glucose 91 (65-110) mg/dL Calcium 9.3 (8.4-10.2) mg/dL Total Bilirubin 0.7 (0.2-1.3) mg/dL AST 27 (17-59) U/L ALT 35 (6-50) U/L Alkaline Phosphatase 80 (38-126) U/L Troponin I < 0.012 (0.000-0.034) ng/mL Total Protein 7.2 (6.3-8.2) g/dL Albumin 4.3 (3.5-5.1) g/dL Urine Color Yellow (Yellow) Urine Appearance Clear (Clear) Urine pH 5.5 (5.0-9.0) Ur Specific Nebo 1.031 (1.001-1.035) Urine Protein Negative (Negative) mg/dL Urine Glucose (UA) 3+ H (Negative) mg/dL Urine Ketones Trace H (Negative) mg/dL Ur Blood (Man) Negative (Negative) Urine Nitrate Negative (Negative) Urine Bilirubin Negative (Negative) Urine Urobilinogen 0.2 (<2.0) mg/dL Leukocyte Esterase Rfl Negative (Negative) BEBETO/UL Urine Opiates Screen Negative (Negative) Urine Methadone Screen Negative (Negative) Ur Barbiturates Screen Negative (Negative) Ur Phencyclidine Scrn Negative (Negative) Ur Amphetamine Screen Negative (Negative) U Benzodiazepines Scrn Negative (Negative) Urine Cocaine Screen Negative (Negative) U Cannabinoids Screen Negative (Negative) <Umer Maya MD - Last Filed: 08/19/25 17:31> Imaging Data Radiologist's impression: ITS Impressions Chest X-Ray 08/18/25 10:06 Impression: No acute cardiopulmonary abnormality. Head CT 08/18/25 10:09 Impression: 1.No acute intracranial abnormality. <Julieta Keen PA-C - Last Filed: 08/19/25 11:33> ECG Data EKG #1: ECG completion date: 08/18/25 <Julieta Keen PA-C - Last Filed: 08/19/25 11:33> EKG Interpretation: normal rate, sinus rhythm, non-specific ST changes and normal QT <Julieta Keen PA-C - Last Filed: 08/19/25 11:33> Critical Care Time Critical Care Time Critical Care Time: No <Julieta Keen PA-C - Last Filed: 08/19/25 11:33> Discharge Plan Discharge Clinical Impression: Dizziness <Julieta Keen PA-C - Last Filed: 08/19/25 11:33> Patient Disposition: Still a Patient <Julieta Keen PA-C - Last Filed: 08/19/25 11:33> Condition: Stable <Julieta Keen PA-C - Last Filed: 08/19/25 11:33>
[2025-08-18 10:20] LABS: Hematocrit 50.3 % (42.0-52.0); Hemoglobin 17.4 g/dL (14.0-18.0); Immature Granulocyte Percent A 0.6 % (0-0.5); Lymphocytes Absolute Auto 2.59 K/mm3 (0.9-3.2); Mean Corpuscular HGB Conc 34.6 g/dl (32-36); Mean Corpuscular Hemoglobin 31.3 pg (26-34); Mean Corpuscular Volume 90.5 fl (80-100); Nucleated Red Blood Cells Absolute Auto 0.000 K/mm3 (0.0-0.012); Nucleated Red Blood Cells Perc 0.0 % (0.0-0.2); Platelet Count Result 214 k/mm3 (150-375); Red Blood Count 5.56 M/mm3 (4.6-6.20); White Blood Count 10.8 K/mm3 (4.5-10.0)
[2025-08-18] MEDS: MECLIZINE HCL 25 MG TABLET PO (10:27)
[2025-08-18] MEDS: SODIUM CHLORIDE 0.9% IV 500 ML 999 ML IV CONT (10:27)
[2025-08-18] MEDS: ONDANSETRON INJ 4 MG/2 ML VIAL IV PUSH (10:27)
[2025-08-18 10:30] LABS: INR 1.2; Prothrombin Time 15.3 Seconds (11.1-14.7)
[2025-08-18 10:31] LABS: Partial Thromboplastin Time 31.1 Seconds (22.3-36.8)
[2025-08-18 10:33] LABS: Alanine Aminotransferase 35 U/L (6-50); Albumin Level 4.3 g/dL (3.5-5.1); Alkaline Phosphatase 80 U/L (38-126); Anion Gap 9 mmol/L (4-12); Aspartate Amino Transferase 27 U/L (17-59); Bilirubin,Total 0.7 mg/dL (0.2-1.3); Blood Urea Nitrogen 18 mg/dL (9-20); Calcium 9.3 mg/dL (8.4-10.2); Carbon Dioxide 25 mmol/L (22-30); Chloride 104 mmol/L (98-107); Estimated CRCL calculation 91 ml/min; Estimated Glomerular Filt Rate > 60; Glucose 91 mg/dL (65-110); Potassium 4.0 mmol/L (3.4-5.0); Sodium 138 mmol/L (137-145); Total Protein 7.2 g/dL (6.3-8.2)
--- OUTSIDE RECORDS SUMMARY | 2025-08-18 10:39 | XMS_ITS | Encounter Summary ---
Author Organization [facility] Address [address] [place] [id number] Phone Care Team Providers Care Operations Chief Name Role Phone Doc Jiang MD Primary Care Provider [phone] Encounter Details Date Type Department Care Team (Latest Contact Info) Description 04/03/2023 [facility] [address] [place] [address] Deon Castillo MD [address] [address] Atherosclerotic heart disease of [place] coronary artery without angina pectoris Social History [...] AM CDT documented as of this encounter Functional Status * BP Answer Date of Assessment Author 110/76 04/05/2023 9:38 AM CDT Annabella Barros ARCHIVAL STUDIES PROFESSOR * Temp Answer Date of Assessment Author 97.7 04/05/2023 9:38 AM CDT Annabella Barros, ARCHIVAL STUDIES PROFESSOR * Pulse Answer Date of Assessment Author 104 04/05/2023 9:38 AM CDT Annabella Barros, ARCHIVAL STUDIES PROFESSOR * Resp Answer Date of Assessment Author 18 04/04/2023 11:28 AM CDT Ca Shepherd, OT * SpO2 Answer Date of Assessment Author 97 04/05/2023 9:38 AM CDT Luisito Barros et K, ARCHIVAL STUDIES PROFESSOR documented as of this encounter Mental Status * BP Answer Entry Date Author 110/76 04/05/2023 9:38 AM CDT Fiorella, Luisito et K, ARCHIVAL STUDIES PROFESSOR * Temp Answer Entry Date Author 97.7 04/05/2023 9:38 AM CDT Brim, Luisito et K, ARCHIVAL STUDIES PROFESSOR * Pulse Answer Entry Date Author 104 04/05/2023 9:38 AM CDT Brim, Luisito et K, ARCHIVAL STUDIES PROFESSOR * SpO2 Answer Entry Date Author 97 04/05/2023 9:38 AM CDT Brim, Luisito et K, ARCHIVAL STUDIES PROFESSOR documented in this encounter Plan of Treatment Not on file documented as of this encounter Procedures Procedure Name Priority Date/Time Associated Diagnosis Comments CBC WITH AUTO DIFFERENTIAL Routine 04/03/2023 12:00 PM CDT Atherosclerotic heart disease of [place] coronary artery without angina pectoris CMP (COMPREHENSIVE METABOLIC PANEL) Routine 04/03/2023 12:00 PM CDT Atherosclerotic heart disease of [place] coronary artery without angina pectoris COMPLETE BLOOD COUNT (CBC) WITH DIFF Routine 04/03/2023 12:00 PM CDT Atherosclerotic heart disease of [place] coronary artery without angina pectoris documented in this encounter Results * (ABNORMAL) CBC WITH AUTO DIFFERENTIAL (04/03/2023 12:00 PM CDT) WBC 11.95 4.00 - 12.00 10(3)/mcL 04/03/2023 2:26 PM CDT [facility] RBC 3.62(L) 4.40 - 5.80 10(6)/mcL 04/03/2023 2:26 PM CDT [facility] HEMOGLOBIN (HGB) 10.7(L) 13.0 - 16.5 g/dL 04/03/2023 2:26 PM CDT [facility] HEMATOCRIT (HCT) 33.9(L) 38.0 - 50.0 % 04/03/2023 2:26 PM CDT [facility] MCV 93.6 82.0 - 96.0 fL 04/03/2023 2:26 PM CDT [facility] MCH 29.6 26.0 - 32.0 pg 04/03/2023 2:26 PM CDT [facility] MCHC 31.6 31.0 - 36.0 g/dL 04/03/2023 2:26 PM CDT [facility] PLATELET COUNT 496(H) 140 - 440 10(3)/mcL 04/03/2023 2:26 PM CDT [facility] RDW 13.8 11.8 - 15.5 % 04/03/2023 2:26 PM CDT [facility] MPV 9.0 8.0 - 12.6 fL 04/03/2023 2:26 PM CDT [facility] NEUTROPHILS 73.9(H) 40.0 - 68.0 % 04/03/2023 2:26 PM CDT [facility] LYMPHOCYTES 18.7(L) 19.0 - 49.0 % 04/03/2023 2:26 PM CDT [facility] MONOCYTES 5.4 3.0 - 13.0 % 04/03/2023 2:26 PM CDT [facility] EOSINOPHILS 1.5 0.0 - 8.0 % 04/03/2023 2:26 PM CDT [facility] BASOPHILS 0.5 0.0 - 1.0 % 04/03/2023 2:26 PM CDT [facility] ABSOLUTE NEUTROPHILS 8.82(H) 1.40 - 5.30 10(3)/mcL 04/03/2023 2:26 PM CDT [facility] ABSOLUTE LYMPHOCYTES 2.24 0.90 - 3.30 10(3)/mcL 04/03/2023 2:26 PM CDT [facility] ABSOLUTE MONOCYTES 0.65 0.10 - 0.90 10(3)/mcL 04/03/2023 2:26 PM CDT [facility] ABSOLUTE EOSINOPHIL 0.18 0.00 - 0.50 10(3)/mcL 04/03/2023 2:26 PM CDT [facility] ABSOLUTE BASOPHILS 0.06 0.00 - 0.10 10(3)/mcL 04/03/2023 2:26 PM CDT [facility] NRBC PER 100 WBC 0 04/03/20 2:26 PM CDT [facility] Blood No Phlebotomy Charged / Unknown 04/03/2023 12:00 PM CDT 04/03/2023 1:51 PM CDT us Deon Castillo MD HEMATOLOGY ORDERABLES Final Resu lt [facility] [address] [place] [address] * (ABNORMAL) CMP (COMPREHENSIVE METABOLIC PANEL) (04/03/2023 12:00 PM CDT) SODIUM 138 136 - 144 mmol/L 04/03/2023 2:26 PM CDT [facility] POTASSIUM 4.1 3.5 - 5.1 mmol/L 04/03/2023 2:26 PM CDT [facility] CHLORIDE 100 100 - 110 mmol/L 04/03/2023 2:26 PM CDT [facility] CO2, VENOUS 22 22 - 32 mmol/L 04/03/2023 2:26 PM CDT [facility] ANION GAP 20.1(H) 8.0 - 20.0 mmol/L 04/03/2023 2:26 PM CDT [facility] GLUCOSE 103(H) 70 - 99 mg/dL 04/03/2023 2:26 PM CDT [facility] BUN 16 6 - 20 mg/dL 04/03/2023 2:26 PM CDT [facility] CREATININE, BLOOD 0.90 0.80 - 1.30 mg/dL 04/03/2023 2:26 PM CDT [facility] BUN/CREATININE RATIO 18 12 - 20 ratio 04/03/2023 2:26 PM [facility] TOTAL PROTEIN 7.4 6.0 - 8.3 g/dL 04/03/2023 2:26 PM [facility] ALBUMIN 4.0 3.5 - 5.2 g/dL 04/03/2023 2:26 PM [facility] Comment: The colormetric methods used for the determination of Albumin may lead to falsely elevated test results in patients suffering from renal failure or insufficiency due to interference with other proteins. A/G RATIO 1.2 1.0 - 2.0 04/03/2023 2:26 PM [facility] CALCIUM 9.8 8.9 - 10.3 mg/dL 04/03/2023 2:26 PM [facility] T BILI 0.4 <=1.2 mg/dL 04/03/2023 2:26 PM [facility] SGOT (AST) 17 <=40 U/L 04/03/2023 2:26 PM [facility] SGPT (ALT) 17 <=41 U/L 04/03/2023 2:26 PM [facility] ALKALINE PHOSPHATASE 104 40 - 130 U/L 04/03/2023 2:26 PM [facility] GFR, ESTIMATED >60 >=60 04/03/2023 2:26 PM [facility] Comment: Creatinine Clearance is the preferred criteria for selecting drug dose adjustments in renally impaired patients. The GFR is provided as additional pertinent clinical information. GFR is reported in mL/min/1.73 sq m. Calculation based on the Chronic Kidney Disease Epidemiology Collaboration (CKD- EPI) equation refit without adjustment for race. GFR, EST. >60 >=60 023 2:26 PM [facility] GFR, EST. NONAFRICAN >60 >=60 04/03/2023 2:26 PM [facility] Blood No Phlebotomy Charged / Unknown 04/03/2023 12:00 PM CDT 04/03/2023 1:51 PM CDT us Deon Castillo MD CHEMISTRY ORDERABLES Final Resul t [facility] [address] [place] [address] documented in this encounter Visit Diagnoses Diagnosis Atherosclerotic heart disease of [place] coronary artery without angina pectoris Coronary atherosclerosis of [place] coronary artery documented in this encounter Care Teams Operations Chief Relationship Specialty Start Date End Date Doc Jiang MD [address] [place] [id number] PCP - General Family Medicine 03/23/23 documented as of this encounter
--- OUTSIDE RECORDS SUMMARY | 2025-08-18 10:39 | XMS_ITS | Clinical Summary ---
Author Organization [facility] Address [address] [facility], [address] [address] Phone Care Team Providers Care Wedding Transportation Driver Name Role Phone Doc Jiang MD Primary Care Provider [phone] Allergies Active Allergy Reactions Criticality Noted Date [...] Virus (HCV) Screening 1969 TdaP Immunization 1969 Varicella Immunization (1 of 2 - 13+ 2-dose series) 1982 Hepatitis B Immunization (1 of 3 - 19+ 3-dose series) 1988 Cologuard 2014 Colonoscopy 2014 Colorectal Cancer Screening 2014 Immunochemical Fecal Occult Blood 2014 Pneumococcal Immunization (5 0+ years) (1 of 1 - PCV) 12/24/2019 Zoster Immunization (1 of 2) 12/24/2019 Influenza Immunization (#1) 2025 SARS-COV-2 Immunization (3 - 2025-26 season) 2025 02/13/2021, 01/16/2021 Respiratory Syncytial Virus [...] patient's age to complete [place] [address] [facility] Advance Directives * Full Code (Latest Code Status on File) Date Activated Date Inactivated Comments 04/06/2023 11:52 AM Care Teams Wedding Transportation Driver Relationship Specialty Start Date End Date Doc Jiang MD [address] [place] [address] PCP - General Family Medicine 03/23/23
--- OUTSIDE RECORDS SUMMARY | 2025-08-18 10:40 | XMS_ITS | Clinical Summary ---
Author Organization [facility] Address [address] [place] [address] Care Team Providers Care Customer Experience Manager Name Role Phone Doc Jiang MD Primary Care Provider Jacky Martinez MD Unavailable [phone] Huey Camarillo MD Unavailable Allergies Active Allergy [...] on file Legal Sex Male 10:23 PM ENT NURSE Gender Identity Not on file Sexual [...] 98.9 kg (218 lb) 11/12/2021 7:39 AM ENT NURSE Height 175.3 cm (5' 9) 11/12/2021 7:39 AM ENT NURSE Body Mass Index 32.19 11/12/2021 7:39 AM ENT NURSE Plan of Treatment Health Maintenance Due Date [...] 2025 02/13/2021, 01/16/2021 Influenza Adult (#1) 2025 Hepatitis A Vaccines Aged Out No long er eligible based on patient's age to complete this topic Meningococcal B Vaccine Aged Out No l onger eligible based on patient's age to complete this topic Meningococcal Vaccine Aged Out No paul ronal eligible based on patient's age to complete this topic RSV Immunizations Under 20 Months Aged Out No longer eligible b ased on patient's age to complete this topic Insurance [facility] Care Teams Customer Experience Manager Relationship Specialty Start Date End Date Doc Jiang MD [address] [place] [phone] PCP - General FAMILY PRACTICE 03/21/20 Jacky Martinez MD [address] [place] [phone] Consulting Physician INTERVENTIONAL CARDIOLOGY 04/23/20 Huey Camarillo MD [address] [place] [phone] Vascular/Coin Machine Servicer Repairer INTERNAL MEDICINE 08/13/20
--- OUTSIDE RECORDS SUMMARY | 2025-08-18 10:40 | XMS_ITS | Encounter Summary ---
Author Organization [facility] Address [address] [place] [address] Care Team Providers Care Top Printing Press Operator Name Role Phone Ismael Mendez MD Primary Care Provider [phone] Doc Jiang MD Primary Care Provider Jacky Martinez MD Unavailable [phone] Huey Camarillo MD Unavailable Encounter Details Date Type Department Care Team (Late st Contact Info) Description 03/02/2019 Abstract SFL CONVERSION [address] [place] [address] , Generic MD Amaris Social History Tobacco Use Types Packs/Day Years Used Date Smoking Tobacco: Never Assessed Sex and Gender Information Value Date Recorded Sex Assigned at Not on file Legal Sex Male 10:23 PM NET SORTER Gender Identity Not on file Sexual Orientation Not on file documented as of this encounter Plan of Treatment Not on file documented as of this encounter Visit Diagnoses Not on filedocumented in this encounter Care Teams Top Printing Press Operator Relationship Specialty Start Date End Date Ismael Mendez MD [address] [place] [phone] PCP - General PULMONARY DISEASE 08/07/19 03/20/20 Doc Jiang MD [address] [place] [phone] PCP - General FAMILY PRACTICE 03/21/20 Jacky Martinez MD [address] [place] [phone] Consulting Physician INTERVENTIONAL CARDIOLOGY 04/23/20 Huey Camarillo MD [address] [place] [phone] Vascular/Licensing Representative INTERNAL MEDICINE 08/13/20 documented as of this encounter
--- OUTSIDE RECORDS SUMMARY | 2025-08-18 10:40 | XMS_ITS | Clinical Summary ---
Author Organization [facility] [address] Address [address] [place] [address] Care Team Providers Care Salvation Army Officer Name Role Phone Doc Jiang MD Primary Care Provider Allergies Active Allergy Reactions Criticality Noted Date Comments Cortisone Anaphylaxis High Hydrocortisone Other (See comments),Anaphylaxis High 08/08/2019 Dermatologicals Metronidazole Hives,Itching,Rash Medium 08/08/2019 Medications aspirin (ASPIRIN LOW DOSE) 81 mg tablet take 1 tablet by oral route every day 0 0 02/26/20 15 Active Additional Information Patient taking differently:81 mgoral Every morning, Indications: prevention of thrombosis, CABG 2022, Informant: Self, Reported on 07/23/2025 tiZANidine (ZANAFLEX) 2 mg tablet Take 1 tablet (2 mg total) by mouth as needed for muscle spasms Active jah.stocki ng,thigh,reg,m ed misc 20-30 MMHG Compression stockings, knee-high, open or closed toe Dx: I83.893 09/07/20 20 Active albuterol HFA (PROVENTIL HFA,VENTOLIN HFA,PROAIR HFA) 90 mcg/actuation inhaler Inhale 2 puffs every 6 (six) hours as needed for wheezing or shortness of breath Active metoprolol tartrate (LOPRESSOR) 25 mg immediate release tablet Take 1 tablet (25 mg total) by mouth 2 (two) times a day 60 tablet 2 03/26/20 23 Active Additional Information Patient taking differently:25 mg oral 2 times daily,Indications: hypertension, Informant: Self, Reported on 07/23/2025 senna-docusate (PERICOLACE) 8.6-50 mg Take 1 tablet by mouth 2 (two) times a day for 7 days 14 tablet 03/26/20 23 Active Additional Information Patient taking differently:1 tablet oralDaily PRN, constipation, Informant: Self, Reported on 07/23/2025 Belbuca 75 mcg film buccal filmIndication s:severe chronic pain requiring long-term opioid treatment Apply 1 each (75 mcg total) to cheek every 12 hours 11/20/19 24 Active acetaminophen (TYLENOL) 500 mg tablet Take 2 tablets (1,000 mg total) by mouth as needed for headaches or pain Active pregabalin (LYRICA) 75 mg capsuleIndicat ions:pain Take 1 capsule (75 mg total) by mouth nightly 07/16/20 24 Active furosemide (LASIX) 20 mg tablet Take 1 tablet (20 mg total) by mouth daily as needed (for leg swelling) 30 tablet 11 08/08/20 24 Active ezetimibe (ZETIA) 10 mg tablet TAKE 1 TABLET (10 MG TOTAL) BY MOUTH DAILY 30 tablet 11 08/16/20 24 Active Additional Information Patient taking differently:10 mg oralEvery morning, Indications: hyperlipidemia, Informant: Self, Reported on 07/23/2025 empagliflozin (JARDIANCE) 10 mg tablet Take 1 tablet (10 mg total) by mouth daily 30 tablet 11 08/30/20 24 Active Additional Information Patient taking differently:10 mg oralEvery morning, Indications: Heart Failure, Informant: Self, Reported on 07/23/2025 Xarelto 2.5 mg tablet TAKE 1 TABLET (2.5 MG TOTAL) BY MOUTH 2 (TWO) TIMES A DAY 60 tablet 11 04/01/20 25 Active Additional Information Patient taking differently:2.5 mg oral 2 times daily,Indications: coronary artery disease, PVD, Informant: Self, Reported on 07/23/2025 lisinopriL (PRINIVIL,ZEST RIL) 5 mg tablet Take 1 tablet (5 mg total) by mouth daily 90 tablet 2 04/21/20 25 026 Active Additional Information Patient taking differently:5 mg oralNightly, Indications: hypertension, Informant: Self, Reported on 07/23/2025 atorvastatin (LIPITOR) 80 mg tablet TAKE 1 TABLET (80 MG TOTAL) BY MOUTH NIGHTLY 90 tablet 1 07/28/20 25 Active atorvastatin (LIPITOR) 80 mg tablet Take 1 tablet (80 mg total) by mouth nightly 90 tablet 6 04/03/20 24 025 Discontinued Active Problems Problem Noted Date Diagnosed Date LORI (obstructive sleep apnea) 04/03/2025 PAD (peripheral artery disease) 04/03/2024 Claudication 04/03/2024 Coronary artery disease 03/06/2023 Resolved Problems Problem Noted Date Diagnosed Date Resolved Date Coronary artery disease (CAD) excluded 03/21/2023 03/23/2023 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 04/22/2016 03/23/2023 Overview (12/29/2016): Degeneration of lumbar intervertebral disc Two-level cervical spondylos is without myelopathy 08/04/2015 03/23/2023 Overview (12/30/2016): Two-level cervical spondylosis without myelopathy Dislocations, sprains and st rains involving head with neck 07/16/2015 03/23/2023 Overview (12/30/2016): Sprain of joints and ligaments of oth prt neck, init encntr 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 07/16/2015 03/23/2023 Overview (12/30/2016): Spondylosis of cervical region without myelopathy or radiculopathy Encounters Date Type Department Care Team Description 08/04/2025 8:00 AM GEOTHERMAL POWERPLANT MECHANIC HELPER Office Visit [facility]) [facility] Medicine ENT [address] [facility] Medical Office Building [address] [place] [address] Fatou Muir MD LORI (obstructive sleep apnea) (Primary Dx); Intolerance of continuous positive airway pressure (CPAP) ventilation; Coronary artery disease involving viejas heart, unspecified vessel or lesion type, unspecified whether angina present 07/23/2025 9:10 AM CDT - 07/23/2025 9:30 AM CDT Surgery [facility] Operating [facility]) [address] [place] [address] Fatou Muir MD DRUG INDUCED SLEEP ENDOSCOPY EVAL FLEX DIAG [36248 (CPT )] 07/23/2025 9:09 AM CDT Anesthesia Event [facility] Operating Room [facility]) [address] [place] [address] Sammy Hinkle MD Smith, Christine A., NP 07/23/2025 7:10 AM CDT - 07/23/2025 10:10 AM CDT Hospital Encounter [facility] Operating [facility] ([facility]) [address] [place] [phone] Fatou Muir MD LORI (obstructive sleep apnea) (Primary Dx) Discharge Disposition: Discharge to home or self care 05/27/[address] [facility] Medical [facility] Cardiology [address] [place] [address] Ana Rosa Suarez MA Zepbound non formulary 05/21/2025 Telephone [facility] Cardiology [address] [place] [address] Deon Castillo MD Med Management from Last 3 Months Surgical History Surgery Date Site/Laterality Comments SPINE SURGERY 09/25/1999 - 09/24/2000 KNEE SURGERY 09/25/1986 - 09/24/1987 Left Multiple surgeries CARDIAC CATHETERIZATION 03/16/2023 CORONARY ARTERY BYPASS GRAFT 03/21/2023 x 4 vessels CARDIAC STENT PLACEMENT 09/25/2014 - 09/24/2015 2 DRUG INDUCED SLEEP ENDOSCOPY 07/23/2025 Throat/N/A Procedure: DRUG INDUCED SLEEP ENDOSCOPY EVAL FLEX DIAG; Surgeon: Fatou Muir MD; Location[facility] OR POD [facility]; Service: Otolaryngology; Laterality: N/A; Medical History Medical History Date Comments Hypertension Hypertension Ischemic heart disease Ischemic heart disease Acute myocardial infarction Acut e myocardial infarction Hx Other Medical back surgery, l eft knee surgery CAD (coronary artery disease) COPD (chronic obstructive pu lmonary disease) GERD (gastroesophageal reflux disease) Diverticulitis Claudication PAD (peripheral artery disease) Sleep apnea Awareness under anesthesia 1986 repor ts woke up during knee surgery 1986, remembers doctor saying to put him back under and then mask was applied to face and he went back out. No problems with subsequent surgeries PONV (postoperative nausea and vomiting) Family History Medical History Relation Name Comments Coronary artery disease Father Yony nary artery disease; Heart failure Mother Congestive hea rt failure; Anesthesia problems Neg Hx Relation Name Status Comments Father (Age 57) Mother (Age 72) Social History Tobacco Use Types Packs/Day Years Used Date Smoking Tobacco: Former Cigarettes Q uit: 2014 Smokeless Tobacco: Former Quit: 1994 Tobacco Cessation:Counseling Given: Not Answered Alcohol Use Standard Drinks/Week Comments Yes 0 (1 standard drink = 0.6 oz pur e alcohol) Social Connection and Isolation Panel Answer Date Recorded In a typical week, how many times do you talk on the phone with family, friends, or neighbors? More than three times a week 03/22/2023 How often do you get togethe r with friends or relatives? More than three times a week 03/22/2023 Attends Uatsdin Services Not on file 03/22 Active Member of Clubs or Organizations Not on f ile 03/22/2023 Attends Club or Organization Meetings Not on edith e 03/22/2023 Are you , , di vorced, , never , or living with a partner? 03/22/2023 Overall Financial Resource Strain (CARDIA) Answe r Date Recorded How hard is it for you to pa y for the very basics like food, housing, medical care, and heating? Not hard at all 03/22/2023 Hunger Vital Sign Answer Date Recorded Within the past 12 months, y ou worried that your food would run out before you got the money to buy more. Never true 03/22/20 23 Within the past 12 months, t he food you bought just didn't last and you didn't have money to get more. Never true 03/22/2023 PRAPARE - Transportation Answer Date Re corded In the past 12 months, has l ack of transportation kept you from medical appointments or from getting medications? No 02/24 In the past 12 months, has l ack of transportation kept you from meetings, work, or from getting things needed for daily living? No 03/22/2023 Housing Stability Vital Sign Answer Gage e Recorded In the last 12 months, was t here a time when you were not able to pay the mortgage or rent on time? No 03/22/2023 Number of Places Lived in the Last Year Not on f ile 03/22/2023 In the last 12 months, was t here a time when you did not have a steady place to sleep or slept in a [place] facility (including now)? No 03/22/2023 AUDIT-C Answer Date Recorded Q1: How often do you have a drink containing alc ohol? Monthly or less 07/23/2025 Q2: How many drinks containi ng alcohol do you have on a typical day when you are drinking? 1 or 2 07/23/2025 Q3: How often do you have si x or more drinks on one occasion? Never 07/23/2025 Personal Safety Answer Date Recorded Have you ever been in or are you currently in a harmful physical or emotional relationship or is someone making you feel afraid or unsafe? Denies 07/23/2025 Sex and Gender Information Value Date Recorded Sex Assigned at Not on file Legal Sex Male 10:46 AM GEOTHERMAL POWERPLANT MECHANIC HELPER Gender Identity Not on file Sexual Orientation Not on file Last Filed Vital Signs Vital Sign Reading Time Taken Comments Blood Pressure 122/92 07/23/2025 9:40 AM CDT Pulse 70 07/23/2025 9:40 AM CDT Temperature 36.3 C (97.3 F) 07/23/2025 9:25 AM CDT Respiratory Rate 17 07/23/2025 9:40 AM CDT Oxygen Saturation 93% 07/23/2025 9:40 AM CDT Inhaled Oxygen Concentration - - Weight 101.3 kg (223 lb 4.8 oz) 08/04/2025 7:52 AM GEOTHERMAL POWERPLANT MECHANIC HELPER Height 175.3 cm (5' 9) 08/04/2025 7:52 AM GEOTHERMAL POWERPLANT MECHANIC HELPER Body Mass Index 32.98 08/04/2025 7:52 AM GEOTHERMAL POWERPLANT MECHANIC HELPER Plan of Treatment Scheduled Procedures Name Priority Associated Diagnoses Date/Ti me IMPLANTATION HYPOGLOSSAL NER VE STIMULATOR. LORI (obstructive sleep apnea) Health Maintenance Due Date Last Done Comments Colon Cancer Screening-Colonoscopy 1969 Depression Screening 1969 Hepatitis C Screening 1969 Prostate Cancer Screening-PSA 1969 DTaP/Tdap/Td Vaccine (1 - Tdap) 1980 Hepatitis B Screening 12/24/1987 Regular Well Visit/Exam 18-64 12/24/1987 Pneumococcal vaccine <65 (1 of 2 - PCV) 1988 Zoster Vaccine (1 of 2) 12/24/2019 Covid-19 Vaccine (3 - 2024- season) 2025, 01/16/2021 Influenza Vaccine (#1) 2025 Goals Goal Patient Goal Type Associated Problems Recent Progress Patient-Stated? Author Autogenerat ed Goal Care Plan Autogenerated Problem No Vj [employer] Implanted Type Area Security Operations Engineer Device Identifier Shelf Expiration Date Model / Serial / Lot J[employer] Medical Plate Bone Low Profile 6 Hole H Shape Ti 115.102.06 - [id number] Implanted:Qty: 1 on 03/21/2023 by Anam Barrios MD at [facility] Plate N/A: Sternum [employer] 115.102.06 / / Jatinder Medical Plate Bone Low Profile 4 Hole Box Ti 115.103.04 - [id number] Implanted:Qty: 1 on 03/21/2023 by Anam Barrios MD at [facility] Plate N/A: Sternum [employer] 115.103.04 / / [employer]atin[employer] Medical Plate Bone Low Profile 6 Hole O Concave Ti 115.604.06 - [id number] Implanted:Qty: 1 on 03/21/2023 by Anam Barrios MD at [facility] Plate N/A: Sternum [employer] 115.604.06 / / Jatinder Medical Screw Bone Slf Drl Full Thread Locking 3.5x14mm Ti 100.035.14 - [id number] Implanted:Qty: 6 on 03/21/2023 by Anam Barrios MD at [facility] Screw N/A: Sternum [employer] 100.035.14 / / [employer] Medical Screw Bone Slf Drl Full Thread Locking 3.5x16mm Ti 100.035.16 - [id number] Implanted:Qty: 4 on 03/21/2023 by Anam Barrios MD at [facility] Screw N/A: Sternum [employer] 100.035.16 / / [employer] Medical Screw Bone Slf Drl Full Thread Locking 3.5x18mm Ti 100.035.18 - [id number] Implanted:Qty: 6 on 03/21/2023 by Anam Barrios MD at [facility] Screw N/A: Sternum [employer] 100.035.18 / / [employer] Mynx Control 6-7fr 2 Mode Balloon Catheter Sealant Lock Syringe [id number] - [id number] Implanted:Qty: 1 on 03/16/2023 by Deon Castillo MD at [facility] [employer] 07/25/2024 [id number] / / [id number] [employer] Device Closure Vascade Od5 Fr Femoral Artery [id number] - [id number] Implanted:Qty: 1 on 04/17/2024 by Deon Castillo MD at [facility] 12/19/2025 [id number] / / [id number] Procedures Procedure Name Priority Date/Time Associated Diagnosis Comments VT DISE DYN EVAL SLEEP DISORDERED BREATHING FLX DX 07/23/2025 9:12 AM CDT LORI (obstructive sleep apnea) Special Needs DR MUIR REQUESTS 5 MINS FOR CASE/2 WEEK POST OP from Last 3 Months Additional Health Concerns Active Problems Noted Date Diagnosed Date Autogenerated Problem 05/30/2025 Insurance [facility] [place] For more information, please contact: [phone] * Full Code (Latest Code Status on File) Date Activated Date Inactivated Comments 03/21/2023 2:54 PM 03/26/2023 4:33 PM Care Teams Salvation Army Officer Relationship Specialty Start Date End Date Doc Jiang MD PCP - General Family Medicine 02/14/19
--- OUTSIDE RECORDS SUMMARY | 2025-08-18 10:40 | XMS_ITS | Encounter Summary ---
Author Organization [facility] Address [address] [place] [address] Care Team Providers Care Welder Gas Automatic Name Role Phone Doc Jiang MD Primary Care Provider [phone] Encounter Details Date Type Department Care Team (Late st Contact Info) Description 09/20/2024 Orders Only [facility] Information Management [address] [place] [address] David Baird MD [address] [place] [address] Social History Tobacco Use Types Packs/Day Years Used Date Smoking Tobacco: Former Cigarettes Smokeless Tobacco: Never Alcohol Use Standard Drinks/Week [...] than three times a week 03/22/2023 Attends Sikh Services Not on file 03/22 Active Member of Clubs or Organizations Not on f ile 03/22/2023 Attends Club or Organization Meetings Not on edith e 03/22/2023 Are you , , di vorced, , never , or living with a partner? 03/22/2023 AUDIT-C Answer Date Recorded Q1: How often do you have a drink containing alc ohol? Monthly or less 03/21/2023 Q2: How many drinks containi ng alcohol do you have on a typical day when you are drinking? 1 or 2 03/21/2023 Q3: How often do you have si x or more drinks on one occasion? Never 03/21/2023 Overall Financial Resource Strain (CARDIA) Answe r [...] place to sleep or slept in a long-term (including now)? No 03/22/2023 Personal Safety Answer Date Recorded Have you ever been in or are you currently in a harmful physical or emotional relationship or is someone making you feel afraid or unsafe? Denies 04/17/2024 Sex and Gender Information Value Date Recorded Sex Assigned at Not on file Legal Sex Male 10:46 AM SUPERVISOR DIAGNOSTIC Gender Identity Not on file Sexual Orientation Not on file documented as of this encounter Plan of Treatment Scheduled Procedures Name Priority Associated Diagnoses Date/Ti me IMPLANTATION HYPOGLOSSAL NER VE STIMULATOR. LORI (obstructive sleep apnea) documented as of this encounter Procedures Procedure Name Priority Date/Time Associated Diagnosis Comments CARDIOLOGY DOCUMENT SCAN 09/20/2024 documented in this encounter Results * Cardiology Document Scan (09/20/2024) Anatomical Region Laterality Modality Other us David Baird MD CV CARDIAC SERVICES PROCEDURES E dited Result - Final documented in this encounter Visit Diagnoses Not on filedocumented in this encounter Care Teams Welder Gas Automatic Relationship Specialty Start Date End Date Doc Jiang MD PCP - General Family Medicine 02/14/19 documented as of this encounter
--- OUTSIDE RECORDS SUMMARY | 2025-08-18 10:40 | XMS_ITS | Encounter Summary ---
Author Organization [facility] Address [address] [place] [address] Care Team Providers Care Landfill Grader Name Role Phone Ismael Mendez MD Primary Care Provider [phone] Doc Jiang MD Primary Care Provider [phone] Jacky Martinez MD Unavailable [phone] Huey Camarillo MD Unavailable Encounter Details Date Type Department Care Team (Late st Contact Info) Description 12/09/2017 Abstract [facility] CONVERSION [address] [place] [address] , Anamaria Glez MD Social History Tobacco Use Types Packs/Day Years Used Date Smoking Tobacco: Never Assessed Sex and Gender Information Value Date Recorded Sex Assigned at Not on file Legal Sex Male 10:23 PM GUSSET MAKER Gender Identity Not on file Sexual Orientation Not on file documented as of this encounter Plan of Treatment Not on file documented as of this encounter Visit Diagnoses Not on filedocumented in this encounter Care Teams Landfill Grader Relationship Specialty Start Date End Date Ismael Mendez MD [address] [place] [phone] PCP - General PULMONARY DISEASE 08/07/19 03/20/20 Doc Jiang MD [address] [place] [phone] PCP - General FAMILY PRACTICE 03/21/20 Jacky Martinez MD [address] [place] [phone] Consulting Physician INTERVENTIONAL CARDIOLOGY 04/23/20 Huey Camarillo MD [address] [place] [phone] Vascular/Tank Car Mechanic INTERNAL MEDICINE 08/13/20 documented as of this encounter
[2025-08-18 10:42] LABS: Troponin I < 0.012 ng/mL (0.000-0.034)
--- OUTSIDE RECORDS SUMMARY | 2025-08-18 11:21 | XMS_ITS | Clinical Summary ---
Author Organization [facility] Address [address] [place] [address] Care Team Providers Care Healthcare Marketer Name Role Phone Doc Jiang MD Primary Care Provider Jacky Martinez MD Unavailable [phone] Huey Camarillo MD Unavailable Allergies Active Allergy [...] on file Legal Sex Male 10:23 PM GOVERNMENT PROGRAM MANAGER Gender Identity Not on file Sexual [...] 98.9 kg (218 lb) 11/12/2021 7:39 AM GOVERNMENT PROGRAM MANAGER Height 175.3 cm (5' 9) 11/12/2021 7:39 AM GOVERNMENT PROGRAM MANAGER Body Mass Index 32.19 11/12/2021 7:39 AM GOVERNMENT PROGRAM MANAGER Plan of Treatment Health Maintenance Due Date [...] patient's age to complete this topic Insurance [facility] Care Teams Healthcare Marketer Relationship Specialty Start Date End Date Doc Jiang MD [address] [place] [phone] PCP - General FAMILY PRACTICE 03/21/20 Jacky Martinez MD [address] [place] [phone] Consulting Physician INTERVENTIONAL CARDIOLOGY 04/23/20 Huey Camarillo MD [address] [place] [phone] Vascular/Maintenance Painter INTERNAL MEDICINE 08/13/20
--- OUTSIDE RECORDS SUMMARY | 2025-08-18 11:21 | XMS_ITS | Encounter Summary ---
Author Organization [facility] Address [address] [place] [address] Care Team Providers Care Stack Matcher Name Role Phone Ismael Mendez MD Primary Care Provider [phone] Doc Jiang MD Primary Care Provider Jacky Martinez MD Unavailable [phone] Huey Camarillo MD Unavailable Encounter Details Date Type Department Care Team (Late st Contact Info) Description 12/09/2017 Abstract [facility] CONVERSION [address] [place] [address] , Anamaria Glez MD Social History Tobacco Use Types Packs/Day Years Used Date Smoking Tobacco: Never Assessed Sex and Gender Information Value Date Recorded Sex Assigned at Not on file Legal Sex Male 10:23 PM TURKEY ROLL MAKER Gender Identity Not on file Sexual Orientation Not on file documented as of this encounter Plan of Treatment Not on file documented as of this encounter Visit Diagnoses Not on filedocumented in this encounter Care Teams Stack Matcher Relationship Specialty Start Date End Date Ismael Mendez MD [address] [place] [phone] PCP - General PULMONARY DISEASE 08/07/19 03/20/20 Doc Jiang MD [address] [place] [phone] PCP - General FAMILY PRACTICE 03/21/20 Jacky Martinez MD [address] [place] [phone] Consulting Physician INTERVENTIONAL CARDIOLOGY 04/23/20 Huey Camarillo MD [address] [place] [phone] Vascular/Microarray Specialist INTERNAL MEDICINE 08/13/20 documented as of this encounter
--- OUTSIDE RECORDS SUMMARY | 2025-08-18 11:21 | XMS_ITS | Clinical Summary ---
Author Organization [facility] [address] Address [address] [place] [address] Care Team Providers Care Black Pickler Name Role Phone Doc Jiang MD Primary [...] Department Care Team Description 08/04/2025 8:00 AM PATIENT INTAKE REPRESENTATIVE Office Visit [facility]) [facility] Medicine ENT [address] [facility] Medical Office Building [address] [place] [address] Fatou Muir MD LORI (obstructive sleep apnea) (Primary Dx); Intolerance of continuous positive airway pressure (CPAP) ventilation; Coronary artery disease involving [place] heart, unspecified vessel or lesion type, unspecified whether angina present 07/23/2025 9:10 AM CDT - 07/23/2025 9:30 AM CDT Surgery [facility] Operating Room [facility] [address] [place] [address] Fatou Muir MD DRUG INDUCED SLEEP ENDOSCOPY EVAL FLEX DIAG [02344 (CPT )] 07/23/2025 9:09 AM CDT Anesthesia Event [facility] Operating Room [facility]) [address] [place] [address] Sammy Hinkle MD Smith, Christine A., NP 07/23/2025 7:10 AM CDT - 07/23/2025 10:10 AM CDT Hospital Encounter [facility] Operating Room [facility] ([facility]) [address] [place] [address] Fatou Muir MD LORI (obstructive sleep apnea) (Primary Dx) Discharge Disposition: Discharge to home or self care 05/27/2025 Telephone [facility] Medical [facility] Cardiology [address] [place] [address] Ana Rosa Suarez MA Zepbound non formulary 05/21/2025 Telephone [facility] Cardiology [address] [place] [address] Deon Castillo MD Med Management [...] FLEX DIAG; Surgeon: Fatou Muir MD; Location: [facility] OR POD 4; Service: Otolaryngology; Laterality: [...] than three times a week 03/22/2023 Attends [employer] Not on file 03/22 Active Member [...] place to sleep or slept in a mcc (including now)? No 03/22/2023 AUDIT-C Answer Date [...] on file Legal Sex Male 10:46 AM PATIENT INTAKE REPRESENTATIVE Gender Identity Not on file Sexual Orientation [...] (223 lb 4.8 oz) 08/04/2025 7:52 AM PATIENT INTAKE REPRESENTATIVE Height 175.3 cm (5' 9) 08/04/2025 7:52 AM PATIENT INTAKE REPRESENTATIVE Body Mass Index 32.98 08/04/2025 7:52 AM PATIENT INTAKE REPRESENTATIVE Plan of Treatment Scheduled Procedures Name Priority [...] Vj Bern[employer] Devices Implanted Type Area Head Filter Press Tender Device Identifier Shelf Expiration Date Model / Serial / Lot Jatinder Medical Plate Bone Low Profile 6 Hole H Shape Ti 115.102.06 - [id number] Implanted:Qty: 1 on 03/21/2023 by Anam Barrios MD at [facility] Plate N/A: Sternum [employer] 115.102.06 / / Jatinder Medical Plate Bone Low Profile 4 Hole Box Ti 115.103.04 - [id number] Implanted:Qty: 1 on 03/21/2023 by Anam Barrios MD at [facility] Plate N/A: Sternum [employer] 115.103.04 / / Jatinder Medical Plate Bone Low Profile 6 Hole O Concave Ti 115.604.06 - [id number] Implanted:Qty: 1 on 03/21/2023 by Anam Barrios MD at [facility] Plate N/A: Sternum [employer] 115.604.06 / / Jatinder Medical Screw Bone Slf Drl Full Thread Locking 3.5x14mm Ti 100.035.14 - [id number] Implanted:Qty: 6 on 03/21/2023 by Anam Barrios MD at [facility] Screw N/A: Sternum [employer] 100.035.14 / / J[employer]der Medical Screw Bone Slf Drl Full Thread Locking 3.5x16mm Ti 100.035.16 - [id number] Implanted:Qty: 4 on 03/21/2023 by Anam Barrios MD at [facility] Screw N/A: Sternum [employer] 100.035.16 / / Jatinder Medical Screw Bone Slf Drl Full Thread Locking 3.5x18mm Ti 100.035.18 - [id number] Implanted:Qty: 6 on 03/21/2023 by Anam Barrios MD at [facility] Screw N/A: Sternum [employer] 100.035.18 / / Access [employer] Mynx Control 6-7fr 2 Mode Balloon Catheter Sealant Lock Syringe [id number] - [id number] Implanted:Qty: 1 on 03/16/2023 by Deon Castillo MD at [facility] [employer] 07/25/2024 [id number] / / [id number] [employer] Device Closure Vascade Od5 Fr Femoral Artery [id number] - [id number] Implanted:Qty: 1 on 04/17/2024 by Deon Castillo MD at [facility] 12/19/2025 [id number] / / [id number] Procedures Procedure Name Priority Date/Time Associated Diagnosis Comments DE DISE DYN EVAL SLEEP DISORDERED BREATHING FLX DX 07/23/2025 9:12 AM CDT LORI (obstructive sleep apnea) Special Needs DR MUIR REQUESTS 5 MINS FOR CASE/2 WEEK POST OP from Last 3 Months Additional Health Concerns Active Problems Noted Date Diagnosed Date Autogenerated Problem 05/30/2025 Insurance [facility] CHO[facility] [place] [employer] [place] [employer] [place] Advance Directives For more information, please contact: [phone] * Full Code (Latest Code Status on File) Date Activated Date Inactivated Comments 03/21/2023 2:54 PM 03/26/2023 4:33 PM Care Teams Black Pickler Relationship Specialty Start Date End Date Doc Jiang MD PCP - General Family Medicine 02/14/19
--- OUTSIDE RECORDS SUMMARY | 2025-08-18 11:21 | XMS_ITS | Encounter Summary ---
Author Organization [facility] Address [address] [place] [address] Care Team Providers Care Pulpwood Dealer Name Role Phone Doc Jiang MD Primary Care Provider [phone] Encounter Details Date Type Department Care Team (Late st Contact Info) Description 09/20/2024 Orders Only [facility] Health Information Management [address] [place] [address] David Baird MD [address] [place] [address] Social History Tobacco Use Types [...] than three times a week 03/22/2023 Attends Alevism Services Not on file 03/22 Active Member [...] place to sleep or slept in a fci (including now)? No 03/22/2023 Personal Safety Answer Date Recorded Have you ever been in or are you currently in a harmful physical or emotional relationship or is someone making you feel afraid or unsafe? 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
--- OUTSIDE RECORDS SUMMARY | 2025-08-18 11:21 | XMS_ITS | Encounter Summary ---
Author Organization [facility] Address [address] [place] [address] Care Team Providers Care Pick Up And Delivery Driver Name Role Phone Ismael Mendez MD Primary Care Provider [phone] Doc Jiang MD Primary Care Provider Jacky Martinez MD Unavailable [phone] Huey Camarillo MD Unavailable Encounter Details Date Type Department Care Team (Late st Contact Info) Description 03/02/2019 Abstract [facility]FL CONVERSION [address] [place] [address] , Generic MD Amaris Social History Tobacco Use Types Packs/Day Years Used Date Smoking Tobacco: Never Assessed Sex and Gender Information Value Date Recorded Sex Assigned at Not on file 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 Gender Identity Not on file Sexual Orientation Not on file documented as of this encounter Plan of Treatment Not on file documented as of this encounter Visit Diagnoses Not on filedocumented in this encounter Care Teams Pick Up And Delivery Driver Relationship Specialty Start Date End Date Ismael Mendez MD [address] [place] [id number] PCP - General PULMONARY DISEASE 08/07/19 03/20/20 Doc Jiang MD [address] [place] [phone] PCP - General FAMILY PRACTICE 03/21/20 Jacky Martinez MD [address] [place] [phone] Consulting Physician INTERVENTIONAL CARDIOLOGY 04/23/20 Huey Camarillo MD [address] [place] [phone] Vascular/Wireless Cellular Technician INTERNAL MEDICINE 08/13/20 documented as of this encounter
--- OUTSIDE RECORDS SUMMARY | 2025-08-18 11:21 | XMS_ITS | Clinical Summary ---
Author Organization [facility] Address [address] [facility], [address] [address] Phone Care Team Providers Care Seed Collector Name Role Phone Doc Jiang MD Primary Care Provider [phone] Allergies Active Allergy Reactions Criticality Noted Date [...] patient's age to complete [place] [address] [facility] Advance Directives * Full Code (Latest Code Status on File) Date Activated Date Inactivated Comments 04/06/2023 11:52 AM Care Teams Seed Collector Relationship Specialty Start Date End Date Doc Jiang MD [address] [place] [address] PCP - General Family Medicine 03/23/23
--- OUTSIDE RECORDS SUMMARY | 2025-08-18 11:21 | XMS_ITS | Encounter Summary ---
Author Organization [facility] Address [address] [place] [address] Phone Care Team Providers Care Building Cleaner Name Role Phone Doc Jiang MD Primary Care Provider [phone] Encounter Details Date Type Department Care Team (Latest Contact Info) Description 04/03/2023 Lab Requisition [facility] [address] [place] [address] Deon Castillo MD [address] [address] Atherosclerotic heart disease of [place] coronary artery without angina pectoris Social History [...] 110/76 04/05/2023 9:38 AM CDT Annabella Barros BARGE HAND * Temp Answer Date of Assessment Author 97.7 04/05/2023 9:38 AM CDT Annabella Barros, BARGE HAND * Pulse Answer Date of Assessment Author 104 04/05/2023 9:38 AM CDT Annabella Barros, BARGE HAND * Resp Answer Date of Assessment Author 18 04/04/2023 11:28 AM CDT Ca Shepherd, OT * SpO2 Answer Date of Assessment Author 97 04/05/2023 9:38 AM CDT Luisito Barros et K, BARGE HAND documented as of this encounter Mental Status * BP Answer Entry Date Author 110/76 04/05/2023 9:38 AM CDT Fiorella, Luisito et K, BARGE HAND * Temp Answer Entry Date Author 97.7 04/05/2023 9:38 AM CDT Brim, Luisito et K, BARGE HAND * Pulse Answer Entry Date Author 104 04/05/2023 9:38 AM CDT Brim, Luisito et K, BARGE HAND * SpO2 Answer Entry Date Author 97 04/05/2023 9:38 AM CDT Brim, Luisito et K, BARGE HAND documented in this encounter Plan of Treatment Not on file documented as of this encounter Procedures Procedure Name Priority Date/Time Associated Diagnosis Comments CBC WITH AUTO DIFFERENTIAL Routine 04/03/2023 12:00 PM CDT Atherosclerotic heart disease of [place] coronary artery without angina pectoris CMP (COMPREHENSIVE METABOLIC PANEL) Routine 04/03/2023 12:00 PM CDT Atherosclerotic heart disease of [place] coronary artery without angina pectoris COMPLETE BLOOD COUNT (CBC) WITH DIFF Routine 04/03/2023 12:00 PM CDT Atherosclerotic heart disease of [place] coronary artery without angina pectoris documented in this encounter Results * (ABNORMAL) CBC WITH AUTO DIFFERENTIAL (04/03/2023 12:00 PM CDT) WBC 11.95 4.00 - 12.00 10(3)/mcL 04/03/2023 2:26 PM CDT [facility] RBC 3.62(L) 4.40 - 5.80 10(6)/mcL 04/03/2023 2:26 PM CDT [facility] HEMOGLOBIN (HGB) 10.7(L) 13.0 - 16.5 g/dL 04/03/2023 2:26 PM CDT [facility] HEMATOCRIT (HCT) 33.9(L) 38.0 - 50.0 % 04/03/2023 2:26 PM CDT [facility] MCV 93.6 82.0 - 96.0 fL 04/03/2023 2:26 PM CDT [facility] MCH 29.6 26.0 - 32.0 pg 04/03/2023 2:26 PM CDT [facility] MCHC 31.6 31.0 - 36.0 g/dL 04/03/2023 2:26 PM CDT [facility] PLATELET COUNT 496(H) 140 - 440 10(3)/mcL 04/03/2023 2:26 PM CDT [facility] RDW 13.8 11.8 - 15.5 % 04/03/2023 2:26 PM CDT [facility] MPV 9.0 8.0 - 12.6 fL 04/03/2023 2:26 PM CDT [facility] NEUTROPHILS 73.9(H) 40.0 - 68.0 % 04/03/2023 2:26 PM CDT [facility] LYMPHOCYTES 18.7(L) 19.0 - 49.0 % 04/03/2023 2:26 PM CDT [facility] MONOCYTES 5.4 3.0 - 13.0 % 04/03/2023 2:26 PM CDT [facility] EOSINOPHILS 1.5 0.0 - 8.0 % 04/03/2023 2:26 PM CDT [facility] BASOPHILS 0.5 0.0 - 1.0 % 04/03/2023 2:26 PM CDT [facility] ABSOLUTE NEUTROPHILS 8.82(H) 1.40 - 5.30 10(3)/mcL 04/03/2023 2:26 PM CDT [facility] ABSOLUTE LYMPHOCYTES 2.24 0.90 - 3.30 10(3)/mcL 04/03/2023 2:26 PM CDT [facility] ABSOLUTE MONOCYTES 0.65 0.10 - 0.90 10(3)/mcL 04/03/2023 2:26 PM CDT [facility] ABSOLUTE EOSINOPHIL 0.18 0.00 - 0.50 10(3)/mcL 04/03/2023 2:26 PM CDT [facility] ABSOLUTE BASOPHILS 0.06 0.00 - 0.10 10(3)/mcL 04/03/2023 2:26 PM CDT [facility] NRBC PER 100 WBC 0 04/03/20 2:26 PM CDT [facility] Blood No Phlebotomy Charged / Unknown 04/03/2023 12:00 PM CDT 04/03/2023 1:51 PM CDT us Deon Castillo MD HEMATOLOGY ORDERABLES Final Resu lt [facility] [address] [place] [address] * (ABNORMAL) CMP (COMPREHENSIVE METABOLIC PANEL) (04/03/2023 12:00 PM CDT) SODIUM 138 136 - 144 mmol/L 04/03/2023 2:26 PM CDT [facility] POTASSIUM 4.1 3.5 - 5.1 mmol/L 04/03/2023 2:26 PM CDT [facility] CHLORIDE 100 100 - 110 mmol/L 04/03/2023 2:26 PM CDT [facility] CO2, VENOUS 22 22 - 32 mmol/L 04/03/2023 2:26 PM CDT [facility] ANION GAP 20.1(H) 8.0 - 20.0 mmol/L 04/03/2023 2:26 PM CDT [facility] GLUCOSE 103(H) 70 - 99 mg/dL 04/03/2023 2:26 PM CDT [facility] BUN 16 6 - 20 mg/dL 04/03/2023 2:26 PM CDT [facility] CREATININE, BLOOD 0.90 0.80 - 1.30 mg/dL 04/03/2023 2:26 PM CDT [facility] BUN/CREATININE RATIO 18 12 - 20 ratio 04/03/2023 2:26 PM [facility] TOTAL PROTEIN 7.4 6.0 - 8.3 g/dL 04/03/2023 2:26 PM [facility] ALBUMIN 4.0 3.5 - 5.2 g/dL 04/03/2023 2:26 PM [facility] Comment: The colormetric methods used for the determination of Albumin may lead to falsely elevated test results in patients suffering from renal failure or insufficiency due to interference with other proteins. A/G RATIO 1.2 1.0 - 2.0 04/03/2023 2:26 PM [facility] CALCIUM 9.8 8.9 - 10.3 mg/dL 04/03/2023 2:26 PM [facility] T BILI 0.4 <=1.2 mg/dL 04/03/2023 2:26 PM [facility] SGOT (AST) 17 <=40 U/L 04/03/2023 2:26 PM [facility] SGPT (ALT) 17 <=41 U/L 04/03/2023 2:26 PM [facility] ALKALINE PHOSPHATASE 104 40 - 130 U/L 04/03/2023 2:26 PM [facility] GFR, ESTIMATED >60 >=60 04/03/2023 2:26 PM [facility] Comment: Creatinine Clearance is the preferred criteria for selecting drug dose adjustments in renally impaired patients. The GFR is provided as additional pertinent clinical information. GFR is reported in mL/min/1.73 sq m. Calculation based on the Chronic Kidney Disease Epidemiology Collaboration (CKD- EPI) equation refit without adjustment for race. GFR, EST. >60 >=60 023 2:26 PM [facility] GFR, EST. NONAFRICAN >60 >=60 04/03/2023 2:26 PM [facility] Blood No Phlebotomy Charged / Unknown 04/03/2023 12:00 PM CDT 04/03/2023 1:51 PM CDT us Deon Castillo MD CHEMISTRY ORDERABLES Final Resul t [facility] [place] [address] documented in this encounter Visit Diagnoses Diagnosis Atherosclerotic heart disease of [place] coronary artery without angina pectoris Coronary atherosclerosis of [place] coronary artery documented in this encounter Care Teams Building Cleaner Relationship Specialty Start Date End Date Doc Jiang MD [address] [place] [phone] PCP - General Family Medicine 03/23/23 documented as of this encounter
--- NOTE | 2025-08-18 11:24 | PC.NURSE ---
assumed care of pt from brandan espinal. pt states he is still feeling dizzy with some fuzziness. pt informed we are waiting on results of urine. no questions. visitor at bedside
[2025-08-18 11:28] LABS: Add Urine Microscopic? NO; Appearance Urine Clear (Clear); Glucose Urine UA 3+ mg/dL (Negative); Leukocyte Esterase Ur Negative LEU/UL (Negative); Nitrate Urine Negative (Negative); Specific Grav Ur 1.031 (1.001-1.035)
[2025-08-18 11:49] LABS: Cannabinoid Screen Urine Negative (Negative)
--- NOTE | 2025-08-18 14:01 | WPCEDHO ---
ED Hand Off Checklist All vitals saved: Yes IV Site documented: Yes All med administrations documented: Yes Triage Note Triage Note Pt ambulates to the ED with 08/18/25 09:41 complaints of a weird feeling on the right side of my head, disorientation, episodes where I forget what I am doing, and dizziness spells x 1 week. Agree with triage note. Pt A&Ox4 on arrival to room Allergies cortisone Allergy (Severe, Verified 08/18/25 09:44) Anaphylactic Shock States does ok with cream, but the injection caused anaphylactic shock metronidazole (From Flagyl) Allergy (Verified 08/18/25 09:44) Unknown Family History (Last Reviewed 10/21/24 @ 09:05 by Jenna Valencia, PCT) Mother Asthma Acute myocardial infarction Sibling Cancer Sibling Cancer Father Acute myocardial infarction Administered/Completed Medications Discontinued Medications Sodium Chloride (Normal Saline Iv) 500 mls @ 999 mls/hr IV CONT .Q31M STA Stop: 08/18/25 10:47 Last Infusion: 08/18/25 11:13 Dose: Infused Documented By: Admin: 08/18/25 10:27 Dose: 999 mls/hr Documented By: HILL Meclizine HCl (Meclizine Hcl 25 Mg Tablet) 25 mg PO ONCE STA Stop: 08/18/25 10:18 Last Admin: 08/18/25 10:27 Dose: 25 mg Documented By: HILL Ondansetron HCl (Ondansetron Inj 4 Mg/2 Ml Vial) 4 mg IV PUSH ONCE STA Stop: 08/18/25 10:18 Last Admin: 08/18/25 10:27 Dose: 4 mg Documented By: HILL Notes 08/18/25 11:24 Nurse Note by Michaela [place] assumed care of pt from brandan espinal. pt states he is still feeling dizzy with some fuzziness. pt informed we are waiting on results of urine. no questions. visitor at bedside Initialized on 08/18/25 11:24 - END OF NOTE 08/18/25 09:37 Nurse Note by Magda Fagan Pt denies any new medications or any recent falls. Pt states there was a virus going around work last week and he was prescribed 2 antibiotics and prednisone and has finished all of those medications. Initialized on 08/18/25 09:37 - END OF NOTE Interventions/Assessments Cardiac Monitoring Start: 08/18/25 09:32 Freq: Status: Active Protocol: Document 08/18/25 10:23 KED (Rec: 08/18/25 10:23 KED [id number]) Special Warfare Operator Assessment Special Warfare Operator Yes Applied Pulse Rate (60-100) 71 EKG Rythm Sinus Rhythm General Assessment Start: 08/18/25 09:32 Freq: Status: Active Protocol: Document 08/18/25 09:41 KED (Rec: 08/18/25 09:44 KED [id number]) GA Neurological Assessment Neurological pt states he feels confused, dizzy Assessment WNL Level of Alert,Awake Consciousness Arousable to Verbal Orientation Oriented to Person,Oriented to Place,Oriented to Time Behavior Appropriate,Cooperative GA Cardiovascular Assessment Cardiovascular Dizziness Symptoms GA Respiratory Assessment Respiratory Rate (12 12 -20) Effort Normal Pattern Regular Depth Normal Chest Expansion Symmetrical Adult Capillary Normal/Less than 2 Seconds Refill Oxygen Delivery Room Air Method Pulse Oximetry (90- 94 100) IV / Saline Lock, Insert Start: 08/18/25 09:51 Freq: STAT Status: Active Protocol: Document 08/18/25 10:13 KED (Rec: 08/18/25 10:15 KED [id number]) IV Assessment Peripheral Access Right Antecubital IV Catheter Access Initiated IV Insertion Date 08/18/25 IV Insertion Time 10:13 Catheter Gauge 20 IV Insertion 1 Attempts Ultrasound Used for No Placement IV Site Assessment WNL IV Care and WNL Maintenance Last Vital Signs Temperature 97.4 F L 08/18/25 09:41 Pulse Rate 73 08/18/25 13:57 Respiratory Rate 13 08/18/25 13:57 Pulse Oximetry 94 08/18/25 13:57 Blood Pressure 103/65 08/18/25 13:57 Blood Pressure Mean 77 08/18/25 13:57 Blood Pressure Position Sitting 08/18/25 13:57 Oxygen Delivery Room Air 08/18/25 09:41 Weight 99.7 kg 08/18/25 09:41 Last Result - Abnormals Only WBC 10.8 K/mm3 (4.5-10.0) H 08/18/25 10:14 Immature Gran % (Auto) 0.6 % (0-0.5) H 08/18/25 10:14 [place] # (Auto) 0.8 K/mm3 (0.1-0.6) H 08/18/25 10:14 Abs Immat Gran (auto) 0.06 K/mm3 (0.00-0.031) H 08/18/25 10:14 Absolute Neuts (auto) 7.2 K/mm3 (1.3-6.7) H 08/18/25 10:14 PT 15.3 Seconds (11.1-14.7) H 08/18/25 10:14 Urine Glucose (UA) 3+ mg/dL (Negative) H 08/18/25 11:21 Urine Ketones Trace mg/dL (Negative) H 08/18/25 11:21 Most Recent Suicide Severity Rating Suicide Severity Rating NO RISK INDICATED 08/18/25 09:41
--- NOTE | 2025-08-18 14:34 | ADMGEN ---
This patient, Scott Sanchez, was admitted to 3 [facility] Surg Room 321-01 @14:34. Patient/family oriented to hospital policies and general routines including ID bracelet, bed and alarms, visiting hours, pain management, procedures, bathroom and other care routines, personal items, smoking policy, room service/diet, and visiting hours. Information on how to activate the Rapid Response Team has been discussed. Patient/Family are encouraged to report perceived risks to care and to ask questions if they do not understand what they are told or what they should do.
[2025-08-18] MEDS: ACETAMINOPHEN 325 MG TABLET 650 MG PO (14:57)
--- NOTE | 2025-08-18 17:16 | PHAR ---
PT'S HOME MED BELBUCA (BUPRENORPHINE) 75 MCG BUCCAL FILM VERIFIED BY PHARMACY. SI FILM BUCALLY EVERY 12 HOURS FOR 30 DAYS. 6 FILMS SENT TO AND VERIFIED BY PHARMACY.
[2025-08-18] MEDS: ONDANSETRON HCL ODT 4 MG TABLET PO (18:12)
--- NOTE | 2025-08-18 19:22 | PM.IMHP ---
H&P: HPI History of Present Illness Date/Time: 08/18/25 1730 Chief Complaint: Dizziness x1 week Narrative: 54-year-old male with past medical history of hyperlipidemia, COPD, HTN, CAD s/p CABG x4 February 2023, AAA presents to the ED on 08/18/2025 with complaints of dizziness. Patient states this has been ongoing over the past week. At times he notices it when he is changing positions but states it can happen on its own at times. He describes a ?funny feeling? on right side of his head/face. He has difficulty describing it but states it is like a numbness with light throbbing. Patient states the right side of his face has slightly decreased sensation when touched when compared to the left. He further endorses increased forgetfulness. Denies vision changes, ear pain, vomiting, problems with balance. Initial vital signs 139/79, HR 70, respirations 12, afebrile and 94% on room air WBC 10.8, PT 15.3. Troponin negative. UA without signs of infection. UDS negative. EKG was sinus rhythm, nonspecific T-wave abnormality. Chest x-ray with no acute cardiopulmonary abnormality. Head CT with no acute intracranial abnormality. Head neck CTA shows patent vertebral arteries bilaterally. Mild atherosclerotic disease with calcified plaque at the carotid bulbs bilaterally producing less than diameter disease. No hemodynamically significant lesions in the neck. Krlx-ha-[id number] calcific atherosclerotic disease of the intracranial portion of ICAs. No significant obstructive changes of the arteries of the [id number]-[id number]. Dural venous sinuses patent. Review of Systems Review of Systems: All systems reviewed & are unremarkable except as noted in HPI and below [facility] Past Medical History Medical History (Updated 08/19/25 @ 00:15 by Nidia Bañuelos APRN) Chronic low back pain Hyperlipidemia CAD (coronary artery disease) Hypertension COPD (chronic obstructive pulmonary disease) Surgical History Surgical History (Updated 10/21/24 @ 09:05 by Jenna Valencia, MARY GRACE) Hx laparoscopic cholecystectomy 09/24/[address] 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 He quit tobacco 7 years ago after smoking 1 pack per day for 20 years. He drinks on average about 1 alcoholic drink per month. He uses medical marijuana about 10 mg at night. No history of drug use or IV drug use. Lives at home with his and 2 adult children. He is a full code. He nominates his to be the individual would make medical decisions for him if he is unable. Smoking packs per day: 1 Smoking cigarettes per day: 20.0 Years smoked: 20 Smoking pack-years: 20.00 Smoking status: Former smoker Tobacco type: cigarettes Second hand tobacco smoke exposure: No Smoking end date: 09/18/18 Alcohol intake: current Drinks per week: 1 Substance use: current Substance use type: marijuana Other substance usage details: marijuana, has medical card. infrequent use Do You Feel Safe in your Home?: Yes Lack of Transportation: No Lack of Food: Never True Current Housing: I Have Housing Concerned About Future Housing: No Difficulty Paying Gas/Electric Bills: No Difficulty Paying for Meds: No Currently Unemployed: No Education: Trade/Vocational Certificate Difficulty w/ Childcare or Family Care: No Spiritual care concerns: No Meds Home Medications and Allergies Home Medications ?Medication ?Instructions ?Recorded ?Confirmed ?Type ezetimibe 10 mg tablet (Zetia) 10 mg PO DAILY 01/02/23 08/18/25 History pregabalin 25 mg capsule (Lyrica) 25 mg PO DAILY 01/02/23 08/18/25 History albuterol 90 mcg/actuation aerosol 90 mcg inhalation PRN 03/04/23 08/18/25 History inhaler lisinopril 10 mg tablet 5 mg PO DAILY 03/04/23 08/18/25 History nitroglycerin 0.4 mg sublingual 0.4 mg sublingual Q5M PRN chest 03/07/23 08/18/25 Rx tablet pain #10 tabs albuterol sulfate 2.5 mg/3 mL 2.5 mg inhalation Q4H PRN 09/20/24 08/18/25 History (0.083 %) solution for nebulization shortness of breath or wheezing albuterol sulfate 90 mcg/actuation 2 puff inhalation Q4H PRN 09/20/24 08/18/25 History aerosol inhaler shortness of breath or wheezing atorvastatin 80 mg tablet 80 mg PO QPM 09/20/24 08/18/25 History buprenorphine HCl 75 mcg buccal 75 mcg buccal Q12H 09/20/24 08/18/25 History film ([place]uca) empagliflozin 10 mg tablet 10 mg PO DAILY 09/20/24 08/18/25 History (Jardiance) furosemide 20 mg tablet 20 mg PO DAILY PRN edema 09/20/24 08/18/25 History ipratropium bromide 0.02 % 0.5 mg continuous nebulization Q4H 09/20/24 08/18/25 History solution for inhalation PRN shortness of breath or wheezing metoprolol tartrate 25 mg tablet 25 mg PO Q12H 09/20/24 08/18/25 History rivaroxaban 2.5 mg tablet (Xarelto) 2.5 mg PO BID 09/20/24 08/18/25 History Held on 09/25/24. Instructions: Resume on 10/01/24. Do not restart if you are have excess bruising or abnormal bleeding. tizanidine 2 mg tablet 2 mg PO Q12H PRN muscle spasticity 09/20/24 08/18/25 History acetaminophen 325 mg tablet 650 mg (2 x 325 mg) PO Q4H PRN 09/25/24 08/18/25 Rx Mild Pain (1-3) Or Fever #60 tabs aspirin 81 mg tablet,delayed 81 mg PO QAM #30 tabs 09/25/24 08/18/25 Rx release ondansetron 4 mg disintegrating 4 mg PO Q6H #16 tabs 10/03/24 08/18/25 Rx tablet cephalexin 500 mg capsule 500 mg PO Q8H 7 days #21 caps 07/08/25 08/18/25 Rx Allergies Allergy/AdvReac Type Severity Reaction Status Date / Time cortisone Allergy Severe Anaphylactic Verified 08/18/25 14:42 Shock metronidazole (From Flagyl) Allergy Unknown Verified 08/18/25 14:42 Vital Signs Vital Signs - 24 hr 08/18/25 09:41 08/18/25 09:41 08/18/25 10:13 Temperature 97.4 F L Pulse Rate 70 74 Respiratory Rate 12 14 12 Blood Pressure 139/79 127/78 Pulse Oximetry 94 94 96 Oxygen Delivery Room Air 08/18/25 10:23 08/18/25 13:57 08/18/25 14:55 Temperature 96.6 F L Pulse Rate 71 73 65 Respiratory Rate 13 14 Blood Pressure 103/65 108/62 Pulse Oximetry 94 96 Oxygen Delivery 08/18/25 15:04 08/18/25 16:00 Temperature Pulse Rate 68 Respiratory Rate Blood Pressure Pulse Oximetry Oxygen Delivery Room Air Exam Narrative: GENERAL: non-toxic appearing, in no acute distress. HEAD: Normocephalic, atraumatic. EYES: PERRLA. Conjunctivae clear. EARS: TM intact bilaterally. No bulging or erythema NOSE: Normal no drainage. THROAT: Pharynx clear, no exudate. NECK: Trachea midline. No adenopathy, no masses. RESPIRATORY: Airway patent, respirations nonlabored. CTA. CARDIOVASCULAR: Regular rate and rhythm GASTROINTESTINAL: Abdomen is soft and nontender. No organomegaly. Bowel sounds normal in all quadrants. Obese GENITOURINARY: Defer MUSCULOSKELETAL: Moves all extremities. No gross deformities. Equal strength in bilateral upper and lower extremities. SKIN: Warm, dry, normal color. NEURO: A&O X4. Speech clear. No facial drooping. Right side of face with slightly decreased sensation compared to the left. PSYCHIATRIC: Normal interaction H&P: Results Labs Labs: Short CBC 08/18/25 Range/Units 10:14 WBC 10.8 H (4.5-10.0) K/mm3 Hgb 17.4 (14.0-18.0) g/dL Hct 50.3 (42.0-52.0) % Plt Count 214 (150-375) k/mm3 [facility] 08/18/25 10:14 Sodium 138 Potassium 4.0 Chloride 104 Carbon Dioxide 25 BUN 18 Creatinine 0.92 Glucose 91 Calcium 9.3 Cardiac Enzymes 08/18/25 Range/Units 10:14 Troponin I < 0.012 (0.000-0.034) ng/mL Liver Function 08/18/25 Range/Units 10:14 Total Bilirubin 0.7 (0.2-1.3) mg/dL AST 27 (17-59) U/L ALT 35 (6-50) U/L Alkaline Phosphatase 80 (38-126) U/L Albumin 4.3 (3.5-5.1) g/dL Urine 08/18/25 Range/Units 11:21 Urine Color Yellow (Yellow) Urine Appearance Clear (Clear) Urine pH 5.5 (5.0-9.0) Ur Specific [place] 1.031 (1.001-1.035) Urine Protein Negative (Negative) mg/dL Urine Glucose (UA) 3+ H (Negative) mg/dL Assessment and Plan Assessment and plan (1) Dizziness: Code(s): R42 - Dizziness and giddiness Status: Acute Assessment and Plan: Patient presents with dizziness, mild right facial numbness, and forgetfulness for the past week. Patient has no known history of CVA or TIA. - Orthostatic blood pressure ordered - admission for observation and telemetry - CXR no acute cardiopulmonary abnormality - CTA Head neck CTA shows patent vertebral arteries bilaterally. Mild atherosclerotic disease with calcified plaque at the carotid bulbs bilaterally producing less than diameter disease. No hemodynamically significant lesions in the neck. Kkei-xi-lvnizyne calcific atherosclerotic disease of the intracranial portion of ICAs. No significant obstructive changes of the arteries of the gbptbt-[id number]-Ylrful. Dural venous sinuses patent. - neurology consulted; awaiting recommendations - brain MRI w/wo ordered - echo w/Bubble ordered - heart healthy diet - monitor daily labs, lipid panel, A1C - up ad marisa - continue Lipitor - continue ASA 81 mg - consider 30 day event monitoring at discharge - p.r.n. meclizine - p.r.n. Zofran (2) Hypertension: Qualifiers: Hypertension type: primary hypertension Qualified Code(s): I10 - Essential (primary) hypertension Code(s): I10 - Essential (primary) hypertension Status: Chronic Assessment and Plan: Continue lisinopril, metoprolol (3) Hyperlipidemia: Qualifiers: Hyperlipidemia type: unspecified Qualified Code(s): E78.5 - Hyperlipidemia, unspecified Code(s): E78.5 - Hyperlipidemia, unspecified Status: Chronic Assessment and Plan: Continue Lipitor, Zetia (4) CAD (coronary artery disease): Qualifiers: Coronary Disease-Associated Artery/Lesion type: [place] artery [place] vs. transplanted heart: [place] heart Associated angina: without angina Qualified Code(s): I25.10 - Atherosclerotic heart disease of [place] coronary artery without angina pectoris Code(s): I25.10 - Atherosclerotic heart disease of [place] coronary artery without angina pectoris Status: Chronic Assessment and Plan: Status post CABG x4 in February 2023. Follows Dr. Baird at [facility] Xarelto (5) Asthma: Qualifiers: Asthma severity: unspecified severity Asthma persistence: unspecified Asthma complication type: unspecified Qualified Code(s): J45.909 - Unspecified asthma, uncomplicated Code(s): J45.909 - Unspecified asthma, uncomplicated Status: Chronic Assessment and Plan: Not in acute exacerbation. -DuoNeb q.6 p.r.n. Plan Diet: Heart healthy GI prophylaxis: NA DVT prophylaxis: Xarelto lines/drains: PIV Fluids: 500 mL NS bolus Code status: Full Quality VTE Prophylaxis VTE prophylaxis: pharmacologic ordered Hospitalist MIPS Advance Care Plan I have confirmed that the patient's Advanced Care Plan is present, code status is documented, or surrogate decision maker is listed in patient medical record.: Yes Medication Reconciliation I have utilized all available resources to obtain, update and review the patients current medications (includes all prescriptions, OTC, herbals, cannabis, and nutritional supplements).: Yes
[2025-08-18] MEDS: METOPROLOL TARTRATE 25 MG TABLET PO (21:56)
[2025-08-18] MEDS: RIVAROXABAN 2.5 MG TABLET PO (21:56)
[2025-08-18] MEDS: ATORVASTATIN 40 MG TABLET 80 MG PO (21:57)
[2025-08-19] VITALS (12 sets, daily range): BP systolic 97–106; BP diastolic 58–83; PULSE 74–92; RESP 12–20; TEMP 36.2–37; O2SAT 90–95
--- NOTE | 2025-08-19 | ECHO_ITS ---
Patient Info Name: Scott Sanchez Age: 54 years : 1970 Gender: Male Ht: 69 in Wt: 219 lbs BSA: 2.23 m2 HR: 82 bpm BP: 109 / 74 mmHg Heart Rhythm: Sinus Rhythm Technical Quality: Fair Exam Date: 08/19/2025 2:47 PM Patient Status: I Admit Date: 08/18/2025 Exam Type: CA echo dop bubble study w con Complete two-dimentional, color flow and Doppler transthoracic echocardiogram is performed with agitated saline and with contrast to opacify the left ventricle and to improve the delineation of the left ventricle endocardial borders. Staff Referring Physician: Julieta Keen PAC Welfare Administrator: Isaiah Hood III Attending Provider: Braxton Doyle MD Contrast/Agitated Saline Contrast/Ag. Saline: Agitated Saline Amount: 16.00 ml Existing IV Access: Yes IV Access Condition: patent with no signs of infiltration Contrast/Ag. Saline: Definity Amount: 2.00 ml Administered By: Isaiah Hood III Existing IV Access: Yes IV Access Condition: patent with no signs of infiltration Summary 1. Normal left ventricular size with adequate systolic contractility. 2. Inferior hypokinesia noted. 3. Mild sclerosis of the aortic valve normal function stenosis. 4. Agitated saline contrast injection was negative for vision. 5. Normal sinus rhythm. Left Ventricle Left ventricular chamber dimension is normal. Left ventricular systolic function is normal, estimated at 50-55. The left ventricular diastolic function is grade I diastolic dysfunction. Right Ventricle Right ventricular chamber dimension is normal. Left Atria Left atrial chamber dimension is normal. Right Atria Right atrial chamber dimension is normal. Atrial Septum Intact interatrial septum visualized by agitated saline imaging. Aortic Valve The aortic valve is trileaflet. There is mild aortic valve sclerosis. Pulmonic Valve The pulmonic valve is not well visualized. Mitral Valve The mitral valve has normal leaflets. Tricuspid Valve The tricuspid valve leaflets are normal. Pericardium/Pleural The pericardium appears normal. Aorta The aortic root size at the sinus of Valsalva is normal. Left Ventricular Outflow Tract Name Value Normal LVOT 2D LVOT Diameter 2.4 cm LVOT Doppler LVOT Peak Velocity 83 cm/s LVOT Peak Gradient 3 mmHg LVOT Mean Gradient 1 mmHg LVOT VTI 17 cm LVOT VTI/AV VTI Ratio 0.9 LVOT Stroke Volume 78 ml LVOT CO 5.9 l/min LVOT CI 2.7 l/min/m2 Pulmonic Valve Name Value Normal PV Doppler PV Peak Velocity 90 cm/s PV Peak Gradient 3 mmHg PV Mean Gradient 2 mmHg Mitral Valve Name Value Normal MV Doppler MV Peak Gradient 3 mmHg MV Mean Gradient 1 mmHg MV Area (Cont Eq VTI) 3.4 cm2 MV Diastolic Function MV E Peak Velocity 86 cm/s MV A Peak Velocity 101 cm/s MV E/A 0.9 MV Decel Time (PW) 173 ms MV Annular TDI MV E/e' (Septal) 22.3 MV E/e' (Lateral) 6.7 MV E/e' (Average) 14.5 Tricuspid Valve Name Value Normal TV Annular TDI TV Lateral Natasha s' Velocity 10.4 cm/s >=9.5 Aortic Valve Name Value Normal AV Doppler AV Peak Velocity 116 cm/s AV Peak Gradient 5 mmHg AV Mean Gradient 3 mmHg AV VTI 19 cm AV Area (Cont Eq VTI) 4.1 cm2 >=3.0 AV Area (Cont Eq Greg) 3.3 cm2 AV DI (Greg) 0.71 AV Regurgitation 2D LVOT Area 4.7 cm2 Ventricles Name Value Normal LV Dimensions 2D/MM LVOT Diameter 2.4 cm LV Fractional Shortening/Ejection Fraction 2D/MM LV Diastolic Volume (4C MOD) 120 ml LV EF (4C MOD) 65 % LV Diastolic Volume (2C MOD) 75 ml LV EF (2C MOD) 63 % LV Diastolic Volume (BP MOD) 94 ml 62-150 LV Diastolic Volume Index (BP MOD) 42 ml/m2 34-74 LV Systolic Volume (BP MOD) 38 ml 21-61 LV Systolic Volume Index (BP MOD) 17 ml/m2 11-31 LV EF (BP MOD) 59 % 52-72 LV Diastolic Length (4C) 7.8 cm LV Systolic Length (4C) 6.5 cm LV Stroke Volume (4C MOD) 78 ml Atria Name Value Normal LA Dimensions LA Volume (4C A-L) 38 ml LA Volume (BP A-L) 39 ml RA Dimensions RA Systolic Major [place] Length (4C) 4.8 cm 2.1-2.7 RA Area (4C) 14.7 cm2 <=18.0 Report Signatures
[2025-08-19] MEDS: ONDANSETRON HCL ODT 4 MG TABLET PO ×4 (00:44→17:52)
[2025-08-19 06:19] LABS: Hematocrit 50.6 % (42.0-52.0); Hemoglobin 16.9 g/dL (14.0-18.0); Immature Granulocyte Percent A 0.8 % (0-0.5); Lymphocytes Absolute Auto 2.33 K/mm3 (0.9-3.2); Mean Corpuscular HGB Conc 33.4 g/dl (32-36); Mean Corpuscular Hemoglobin 31.2 pg (26-34); Mean Corpuscular Volume 93.5 fl (80-100); Nucleated Red Blood Cells Absolute Auto 0.000 K/mm3 (0.0-0.012); Nucleated Red Blood Cells Perc 0.0 % (0.0-0.2); Platelet Count Result 160 k/mm3 (150-375); Red Blood Count 5.41 M/mm3 (4.6-6.20); White Blood Count 7.7 K/mm3 (4.5-10.0)
[2025-08-19 06:35] LABS: Anion Gap 8 mmol/L (4-12); Blood Urea Nitrogen 20 mg/dL (9-20); Calcium 8.8 mg/dL (8.4-10.2); Carbon Dioxide 25 mmol/L (22-30); Chloride 102 mmol/L (98-107); Cholesterol 126 mg/dL (0-200); Estimated CRCL calculation 81 ml/min; Estimated Glomerular Filt Rate > 60; Glucose 76 mg/dL (65-110); HDL Direct 24 mg/dL; Potassium 4.1 mmol/L (3.4-5.0); Sodium 135 mmol/L (137-145); Triglycerides 141 mg/dL (<150)
[2025-08-19 06:47] LABS: Hemoglobin A1C 5.9 % (<5.7)
--- NOTE | 2025-08-19 07:55 | P.PNIM_ITS ---
Progress Note: A&P Assessment and Plan (1) Dizziness: Code(s): R42 - Dizziness and giddiness Status: Acute Assessment and Plan: Patient presents with dizziness, mild right facial numbness, and forgetfulness for the past week. Patient has no known history of CVA or TIA. * CXR no acute cardiopulmonary abnormality * CTA Head neck: * patent vertebral arteries bilaterally. Mild atherosclerotic disease with calcified plaque at the carotid bulbs bilaterally producing less than diameter disease. No hemodynamically significant lesions in the neck. * [id number] calcific atherosclerotic disease of the intracranial portion of ICAs. No significant obstructive changes of the arteries of the [id number]. Dural venous sinuses patent. * brain MRI : Moderate scattered nonspecific periventricular predominant white matter T2 hyperintensity consistent with chronic small vessel ischemic disease. No other acute intracranial process or abnormally enhancing brain lesions. * Echo pending * Monitor Orthostatic blood pressures * heart healthy diet * monitor daily labs, lipid panel, A1C * up ad marisa * continue Lipitor * continue ASA 81 mg * consider 30 day event monitoring at discharge * p.r.n. meclizine, Zofran * Neurology consulted; awaiting recommendations (2) Hypertension: Qualifiers: Hypertension type: primary hypertension Qualified Code(s): I10 - Essential (primary) hypertension Code(s): I10 - Essential (primary) hypertension Status: Chronic Assessment and Plan: * Continue lisinopril, metoprolol (3) Hyperlipidemia: Qualifiers: Hyperlipidemia type: unspecified Qualified Code(s): E78.5 - Hyperlipidemia, unspecified Code(s): E78.5 - Hyperlipidemia, unspecified Status: Chronic Assessment and Plan: * Continue Lipitor, Zetia (4) CAD (coronary artery disease): Qualifiers: Associated angina: without angina Coronary Disease-Associated Artery/Lesion type: [place] artery [place] vs. transplanted heart: [place] heart Qualified Code(s): I25.10 - Atherosclerotic heart disease of [place] coronary artery without angina pectoris Code(s): I25.10 - Atherosclerotic heart disease of [place] coronary artery without angina pectoris Status: Chronic Assessment and Plan: * Status post CABG x4 in February 2023. Follows Dr. Baird at [facility] * Wilson Mcknight Xarelto (5) Asthma: Qualifiers: Asthma complication type: unspecified Asthma persistence: unspecified Asthma severity: unspecified severity Qualified Code(s): J45.909 - Unspecified asthma, uncomplicated Code(s): J45.909 - Unspecified asthma, uncomplicated Status: Chronic Assessment and Plan: * Not in acute exacerbation. * DuoNeb q.6 p.r.n. Plan Diet: Heart healthy GI prophylaxis: NA DVT prophylaxis: Xarelto lines/drains: PIV Fluids: 500 mL NS bolus Code status: Full Subjective Date/time seen: 08/19/25 07:55 Interval history: 54-year-old male with past medical history of hyperlipidemia, COPD, HTN, CAD s/p CABG x4 February 2023, AAA presents to the ED on 08/18/2025 with complaints of dizziness. 08/19/2025 Patient sitting comfortably in bed at time of examination. Denies any chest pain, shortness of breath, nausea/vomiting or abdominal pain at this time. Still slightly dizzy at this time, however states that it is better than it was the past week. Brain MRI shows no acute intracranial process or abnormally enhancing brain lesions, chronic small-vessel ischemic disease. Echocardiogram still pending at this time. Patient is otherwise stable and has no concerns at this time. Review of Systems Review of Systems: All systems reviewed & are unremarkable except as noted in HPI and below Exam Narrative: GENERAL: non-toxic appearing, in no acute distress. HEAD: Normocephalic, atraumatic. EYES: PERRLA. Conjunctivae clear. EARS: TM intact bilaterally. No bulging or erythema NOSE: Normal no drainage. THROAT: Pharynx clear, no exudate. NECK: Trachea midline. No adenopathy, no masses. RESPIRATORY: Airway patent, respirations nonlabored. CTA. CARDIOVASCULAR: Regular rate and rhythm GASTROINTESTINAL: Abdomen is soft and nontender. No organomegaly. Bowel sounds normal in all quadrants. Obese GENITOURINARY: Defer MUSCULOSKELETAL: Moves all extremities. No gross deformities. Equal strength in bilateral upper and lower extremities. SKIN: Warm, dry, normal color. NEURO: A&O X4. Speech clear. No facial drooping. Right side of face with slightly decreased sensation compared to the left. PSYCHIATRIC: Normal interaction Objective Data Vital Signs Vital Signs: Vital Signs - 24 hr 08/18/25 09:41 08/18/25 09:41 08/18/25 10:13 Temperature 97.4 F L Pulse Rate 70 74 Respiratory Rate 12 14 12 Blood Pressure 139/79 127/78 Pulse Oximetry 94 94 96 Oxygen Delivery Room Air 08/18/25 10:23 08/18/25 13:57 08/18/25 14:55 Temperature 96.6 F L Pulse Rate 71 73 65 Respiratory Rate 13 14 Blood Pressure 103/65 108/62 Pulse Oximetry 94 96 Oxygen Delivery 08/18/25 15:04 08/18/25 16:00 08/18/25 20:00 Temperature Pulse Rate 68 Respiratory Rate Blood Pressure Pulse Oximetry Oxygen Delivery Room Air Room Air 08/18/25 20:00 08/18/25 22:00 08/19/25 00:00 Temperature 98.6 F Pulse Rate 67 80 77 Respiratory Rate 16 Blood Pressure 109/74 Pulse Oximetry 93 Oxygen Delivery 08/19/25 04:00 08/19/25 06:00 Temperature 97.1 F L Pulse Rate 82 77 Respiratory Rate 20 Blood Pressure 97/83 L Pulse Oximetry 92 Oxygen Delivery Intake/Output Intake/Output: Intake & Output 08/16/25 08/17/25 08/18/25 08/19/25 23:59 23:59 23:59 23:59 Intake Total 1480 100 Balance 1480 100 Meds/Results Medications: Active Medications Generic Name Dose Route Start Last Admin Trade Name Freq PRN Reason Stop Dose Admin Acetaminophen 650 mg 08/18/25 16:42 Acetaminophen 325 Mg Tablet PO Q4H PRN Mild Pain (1-3) or Fever Aspirin 81 mg 08/19/25 09:00 Aspirin 81 Mg Enteric Tablet PO DAILY [facility] Atorvastatin Calcium 80 mg 08/18/25 21:00 08/18/25 21:57 Atorvastatin 40 Mg Tablet PO 80 mg HS [facility] Administration Ezetimibe 10 mg 08/19/25 09:00 Ezetimibe 10 Mg Tablet PO DAILY [place] Empagliflozin 10 mg 08/19/25 09:00 Empagliflozin 10 Mg Tablet PO DAILY [place] Furosemide 20 mg 08/18/25 16:42 Furosemide 20 Mg Tablet PO DAILY PRN Edema Ipratropium [place] 0.5 mg 08/18/25 16:42 Ipratropium Br 0.02% Inh Soln 0.5 Mg/2.5 Ml Vial INHALATION Q4H PRN Shortness Of Breath Or Wheezing Lisinopril 5 mg 08/18/25 21:00 08/18/25 21:56 Lisinopril 5 Mg Tablet PO 5 mg HS [place] Administration Meclizine HCl 12.5 mg 08/18/25 23:55 Meclizine Hcl 12.5 Mg Tablet PO QID PRN Dizziness Metoprolol Tartrate 25 mg 08/18/25 21:30 08/18/25 21:56 Metoprolol Tartrate 25 Mg Tablet PO 25 mg Q12HR [place] Administration Nitroglycerin 0.4 mg 08/18/25 16:42 Nitroglycerin Sl 0.4 Mg Tablet SUBLINGUAL Q5M PRN Chest Pain Home Med: Bel[place]uca ( 1 each 08/18/25 21:00 08/18/25 22:02 Buprenorphine Hcl 75 XX 09/17/25 20:59 Not Given Mcg Buccal Film, Q12HR [facility] Medicated) Ondansetron HCl 4 mg 08/18/25 18:00 08/19/25 06:51 Ondansetron Hcl Odt 4 Mg Tablet PO 4 mg Q6H [place] Administration Perflutren Lipid Microsphere 0 ml 08/19/25 00:16 Perflutren Lipid Microspheres 1.5 Ml Vial Diluted To 10 Ml Total Volume IV PUSH 08/22/25 00:17 ONCE PRN adequate visualization Protocol Pregabalin 25 mg 08/19/25 09:00 Pregabalin (*Crx) 25 Mg Capsule PO DAILY [facility] Rivaroxaban 2.5 mg 08/18/25 21:30 08/18/25 21:56 Rivaroxaban 2.5 Mg Tablet PO 2.5 mg Q12HR [place] Administration Tizanidine HCl 2 mg 08/18/25 16:42 Tizanidine Hcl 2 Mg Tablet PO Q12H PRN Muscle Spasticity Radiology Results: ITS Impressions Chest X-Ray 08/18/25 10:06 Impression: No acute cardiopulmonary abnormality. Head CT 08/18/25 10:09 Impression: 1.No acute intracranial abnormality. Head/Neck CTA 08/18/25 18:14 IMPRESSION: 1. Vertebral arteries are patent in the neck on both sides. Mild atherosclerotic disease with calcified plaque at the carotid bulbs on both sides in the neck producing less than diameter disease. No hemodynamically significant lesions in the neck. 2. Mild to moderate calcific atherosclerotic disease of the intracranial portion of internal carotid arteries. No significant obstructive changes of the arteries of [place] of [place]. Dural venous sinuses are patent. Labs Labs: Laboratory Results - last 24 hr 11/24/25 11/24/25 11/25/25 10:14 11:21 05:49 WBC 10.8 H 7.7 RBC 5.56 5.41 Hgb 17.4 16.9 Hct 50.3 50.6 MCV 90.5 93.5 MCH 31.3 31.2 MCHC 34.6 33.4 RDW 13.9 14.3 Plt Count 214 160 MPV 9.5 9.6 Immature Gran % (Auto) 0.6 H 0.8 H Neut % (Auto) 67.2 60.3 Lymph % (Auto) 24.1 30.2 Stokes % (Auto) 7.1 7.3 Eos % (Auto) 0.7 1.0 Baso % (Auto) 0.3 0.4 Lymph # (Auto) 2.59 2.33 Stokes # (Auto) 0.8 H 0.6 Eos # (Auto) 0.1 0.1 Baso # (Auto) 0.0 0.0 Abs Immat Gran (auto) 0.06 H 0.06 H Absolute Neuts (auto) 7.2 H 4.7 Absolute Nucleated RBC 0.000 0.000 Nucleated RBC % 0.0 0.0 PT 15.3 H INR 1.2 APTT 31.1 Sodium 138 135 L Potassium 4.0 4.1 Chloride 104 102 Carbon Dioxide 25 25 Anion Gap 9 8 BUN 18 20 Creatinine 0.92 1.04 Estim Creat Clear Calc 91 81 Estimated GFR > 60 > 60 Glucose 91 76 Hemoglobin A1c 5.9 H Calcium 9.3 8.8 Total Bilirubin 0.7 AST 27 ALT 35 Alkaline Phosphatase 80 Troponin I < 0.012 Total Protein 7.2 Albumin 4.3 Triglycerides 141 Cholesterol 126 LDL Cholesterol Direct 69 HDL Direct 24 Urine Color Yellow Urine Appearance Clear Urine pH 5.5 Ur Specific [place] 1.031 Urine Protein Negative Urine Glucose (UA) 3+ H Urine Ketones Trace H Ur Blood (Man) Negative Urine Nitrate Negative Urine Bilirubin Negative Urine Urobilinogen 0.2 Leukocyte Esterase Rfl Negative Urine Opiates Screen Negative Urine Methadone Screen Negative Ur Barbiturates Screen Negative Ur Phencyclidine Scrn Negative Ur Amphetamine Screen Negative U Benzodiazepines Scrn Negative Urine Cocaine Screen Negative U Cannabinoids Screen Negative Quality VTE Prophylaxis VTE prophylaxis: pharmacologic ordered
[2025-08-19] MEDS: EMPAGLIFLOZIN 10 MG TABLET PO (09:38)
[2025-08-19] MEDS: METOPROLOL TARTRATE 25 MG TABLET PO ×2 (09:38→20:27)
[2025-08-19] MEDS: ASPIRIN 81 MG ENTERIC TABLET PO (09:38)
[2025-08-19] MEDS: RIVAROXABAN 2.5 MG TABLET PO ×2 (09:39→20:26)
--- NOTE | 2025-08-19 15:18 | WPDNEURCNPN ---
Assessment and Plan Assessment and plan (1) Dizziness: Code(s): R42 - Dizziness and giddiness Status: Acute Plan Her mood Consult date: 08/19/25 HPI: Scott Sanchez is a 54 year old male admitted to the hospital through the emergency room for the complaints of dizziness described as feeling off balance in addition to funny sensation on the right side of his head without any visual difficulties. Has been taking multiple medications as outlined particularly involving 1. Pregabalin 25mg daily 2. Lisinopril 10mg daily 3. Atorvastatin 80mg daily 4. Report nor faint 75mg q.12 hours 5. Jardiance 10mg daily 6. Lasix 20mg daily 7. Rivaroxaban 2.5mg b.i.d. is reportedly allergic to cortisone and Flagyl. Does have ongoing history of from 1. Chronic low back pain 2. Coronary artery disease 3. Hypertension for COPD. Has undergone lumbar surgery and knee surgery. Has history of years smoked 20 his smoking pack years of 20 but at present former smoker and currently only 1 drink per week for alcohol. Initial exam in the emergency room grossly nonfocal. Vital signs were normal, CBC was normal, BMP normal, UA negative, and mast scan with only 3+ glucose in the urine otherwise negative home chest x-ray negative CT of the head negative for the bleed or hydrocephalus , EKG negative for atrial fibrillation, Review of Systems Review of Systems: All systems reviewed & are unremarkable except as noted in HPI and below PMFSH Past Medical History Medical History Chronic low back pain Hyperlipidemia CAD (coronary artery disease) Hypertension COPD (chronic obstructive pulmonary disease) Surgical History Surgical History Hx laparoscopic cholecystectomy 09/24/[address] 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 He quit tobacco 7 years ago after smoking 1 pack per day for 20 years. He drinks on average about 1 alcoholic drink per month. He uses medical marijuana about 10 mg at night. No history of drug use or IV drug use. Lives at home with his and 2 adult children. He is a full code. He nominates his to be the individual would make medical decisions for him if he is unable. Smoking packs per day: 1 Smoking cigarettes per day: 20.0 Years smoked: 20 Smoking pack-years: 20.00 Smoking status: Former smoker Tobacco type: cigarettes Second hand tobacco smoke exposure: No Smoking end date: 09/18/18 Alcohol intake: current Drinks per week: 1 Substance use: current Substance use type: marijuana Other substance usage details: marijuana, has medical card. infrequent use Do You Feel Safe in your Home?: Yes Lack of Transportation: No Lack of Food: Never True Current Housing: I Have Housing Concerned About Future Housing: No Difficulty Paying Gas/Electric Bills: No Difficulty Paying for Meds: No Currently Unemployed: No Education: Trade/Vocational Certificate Difficulty w/ Childcare or Family Care: No Spiritual care concerns: No Meds Home Medications and Allergies Home Medications ?Medication ?Instructions ?Recorded ?Confirmed ?Type ezetimibe 10 mg tablet (Zetia) 10 mg PO DAILY 01/02/23 08/18/25 History pregabalin 25 mg capsule (Lyrica) 25 mg PO DAILY 01/02/23 08/18/25 History albuterol 90 mcg/actuation aerosol 90 mcg inhalation PRN 03/04/23 08/18/25 History inhaler lisinopril 10 mg tablet 5 mg PO DAILY 03/04/23 08/18/25 History nitroglycerin 0.4 mg sublingual 0.4 mg sublingual Q5M PRN chest 03/07/23 08/18/25 Rx tablet pain #10 tabs albuterol sulfate 2.5 mg/3 mL 2.5 mg inhalation Q4H PRN 09/20/24 08/18/25 History (0.083 %) solution for nebulization shortness of breath or wheezing albuterol sulfate 90 mcg/actuation 2 puff inhalation Q4H PRN 09/20/24 08/18/25 History aerosol inhaler shortness of breath or wheezing atorvastatin 80 mg tablet 80 mg PO QPM 09/20/24 08/18/25 History buprenorphine HCl 75 mcg buccal 75 mcg buccal Q12H 09/20/24 08/18/25 History film (Belbuca) empagliflozin 10 mg tablet 10 mg PO DAILY 09/20/24 08/18/25 History (Jardiance) furosemide 20 mg tablet 20 mg PO DAILY PRN edema 09/20/24 08/18/25 History ipratropium bromide 0.02 % 0.5 mg continuous nebulization Q4H 09/20/24 08/18/25 History solution for inhalation PRN shortness of breath or wheezing metoprolol tartrate 25 mg tablet 25 mg PO Q12H 09/20/24 08/18/25 History rivaroxaban 2.5 mg tablet (Xarelto) 2.5 mg PO BID 09/20/24 08/18/25 History Held on 09/25/24. Instructions: Resume on 10/01/24. Do not restart if you are have excess bruising or abnormal bleeding. tizanidine 2 mg tablet 2 mg PO Q12H PRN muscle spasticity 09/20/24 08/18/25 History acetaminophen 325 mg tablet 650 mg (2 x 325 mg) PO Q4H PRN 09/25/24 08/18/25 Rx Mild Pain (1-3) Or Fever #60 tabs aspirin 81 mg tablet,delayed 81 mg PO QAM #30 tabs 09/25/24 08/18/25 Rx release ondansetron 4 mg disintegrating 4 mg PO Q6H #16 tabs 10/03/24 08/18/25 Rx tablet cephalexin 500 mg capsule 500 mg PO Q8H 7 days #21 caps 07/08/25 08/18/25 Rx Allergies Allergy/AdvReac Type Severity Reaction Status Date / Time cortisone Allergy Severe Anaphylactic Verified 08/18/25 14:42 Shock metronidazole (From Flagyl) Allergy Unknown Verified 08/18/25 14:42 Vital Signs Vital Signs - 24 hr 08/18/25 16:00 08/18/25 20:00 08/18/25 20:00 Temperature Pulse Rate 68 67 Respiratory Rate Blood Pressure Pulse Oximetry Oxygen Delivery Room Air 08/18/25 22:00 08/19/25 00:00 08/19/25 04:00 Temperature 37.0 C Pulse Rate 80 77 82 Respiratory Rate 16 Blood Pressure 109/74 Pulse Oximetry 93 Oxygen Delivery 08/19/25 06:00 08/19/25 08:00 08/19/25 08:00 Temperature 36.2 C L Pulse Rate 77 Respiratory Rate 20 Blood Pressure 97/83 L 103/68 Pulse Oximetry 92 Oxygen Delivery Room Air 08/19/25 08:00 08/19/25 08:01 08/19/25 08:02 Temperature Pulse Rate 78 Respiratory Rate Blood Pressure 103/65 101/65 Pulse Oximetry Oxygen Delivery 08/19/25 09:38 08/19/25 14:00 Temperature 37.0 C Pulse Rate 78 76 Respiratory Rate 12 Blood Pressure 106/58 L Pulse Oximetry 90 Oxygen Delivery Exam Narrative: exam reveals him to be awake alert cooperative in no obvious acute distress, head normocephalic with no bruit, neck supple with no cervical bruit, heart regular with no murmur, lungs clear to auscultation with no rhonchi or crepitation, abdomen soft nontender normal bowel sounds, neurologically he is awake alert cooperative in no obvious acute distress, his speech not dysphasic not dysarthric not dysphonic, pupils round regular cueva of vision full extraocular movements full face symmetrical tongue midline motor examination revealed normal strength and tone reflexes sluggish plantars downgoing decreased sensation distally in both lower extremities. Results Labs 08/19/25 05:49 08/19/25 05:49 Labs: Short CBC 08/19/25 Range/Units 05:49 WBC 7.7 (4.5-10.0) K/mm3 Hgb 16.9 (14.0-18.0) g/dL Hct 50.6 (42.0-52.0) % Plt Count 160 (150-375) k/mm3 [facility] 08/19/25 05:49 Sodium 135 L Potassium 4.1 Chloride 102 Carbon Dioxide 25 BUN 20 Creatinine 1.04 Glucose 76 Calcium 8.8
[2025-08-19] MEDS: PERFLUTREN LIPID MICROSPHERES 1.5 ML VIAL DILUTED TO 10 ML TOTAL VOLUME IV PUSH (16:32)
--- NOTE | 2025-08-19 16:32 | IVDEFINITY ---
Prior to administration of IV Definity the patient was educated on the risks and benefits of the imaging enhancing agent including potential adverse side effects. The patient verbalized understanding. Allergies were verified. No exclusion criteria were identified and at least one of the following inclusion criteria were met: 1) physician request, 2) patient technically difficult to image (per the [place] [employer]ocardi[employer] guidelines of two or more segments not discernable within the apical view), or 3) questionable left ventricular function. ?
--- NOTE | 2025-08-19 17:34 | PCRCNOTE ---
Pt. was offered a CPAP device, he refused and stated he does not wear his CPAP, he can not get used to it. RN notified.
[2025-08-19] MEDS: TIZANIDINE HCL 2 MG TABLET PO (20:26)
[2025-08-19] MEDS: PREGABALIN (*CRX) 25 MG CAPSULE PO (20:26)
[2025-08-19] MEDS: ATORVASTATIN 40 MG TABLET 80 MG PO (20:27)
[2025-08-19] MEDS: ACETAMINOPHEN 325 MG TABLET 650 MG PO (22:33)
[2025-08-20] VITALS: PULSE 61
[2025-08-20] MEDS: ONDANSETRON HCL ODT 4 MG TABLET PO ×2 (01:00→06:27)
[2025-08-20 04:00] VITALS: PULSE 66
[2025-08-20 05:42] VITALS: BP 100/58; PULSE 62; RESP 18; TEMP 36.7; O2SAT 96
[2025-08-20] MEDS: ACETAMINOPHEN 325 MG TABLET 650 MG PO (06:27)
[2025-08-20 08:00] VITALS: PULSE 74
[2025-08-20 08:22] VITALS: PULSE 66
[2025-08-20] MEDS: METOPROLOL TARTRATE 25 MG TABLET PO (08:22)
[2025-08-20] MEDS: RIVAROXABAN 2.5 MG TABLET PO (08:22)
[2025-08-20] MEDS: EMPAGLIFLOZIN 10 MG TABLET PO (08:22)
[2025-08-20] MEDS: ASPIRIN 81 MG ENTERIC TABLET PO (08:22)
--- NOTE | 2025-08-20 11:51 | PC.NURSE ---
Patient refused scheduled 1200 zofran dose. Provider Soha was in the room and okayed to hold the 1200 dose of zofran as well.
--- NOTE | 2025-08-20 12:26 | P.DS_ITS ---
DS: Admitting Diagnosis Discharge Date 08/20/25 Admitting Diagnosis - dizziness DS: Discharge Diagnosis Discharge Diagnosis (1) Dizziness: Code(s): R42 - Dizziness and giddiness Status: Acute (2) Hypertension: Qualifiers: Hypertension type: primary hypertension Qualified Code(s): I10 - Essential (primary) hypertension Code(s): I10 - Essential (primary) hypertension Status: Chronic (3) Hyperlipidemia: Qualifiers: Hyperlipidemia type: unspecified Qualified Code(s): E78.5 - Hyperlipidemia, unspecified Code(s): E78.5 - Hyperlipidemia, unspecified Status: Chronic (4) CAD (coronary artery disease): Qualifiers: Coronary Disease-Associated Artery/Lesion type: [place] artery [place] vs. transplanted heart: [place] heart Associated angina: without angina Qualified Code(s): I25.10 - Atherosclerotic heart disease of [place] coronary artery without angina pectoris Code(s): I25.10 - Atherosclerotic heart disease of [place] coronary artery without angina pectoris Status: Chronic (5) Asthma: Qualifiers: Asthma severity: unspecified severity Asthma persistence: unspecified Asthma complication type: unspecified Qualified Code(s): J45.909 - Unspecified asthma, uncomplicated Code(s): J45.909 - Unspecified asthma, uncomplicated Status: Chronic DS: Summary Hospital Course Reason for hospitalization: - dizziness Hospital Course: The patient is a 54-year-old male with a history of hyperlipidemia, hypertension, coronary artery disease status post CABG, COPD, and chronic low back pain who was admitted with one week of dizziness, described as intermittent episodes of feeling off balance and a funny feeling with mild numbness on the right side of his head and face. Initial evaluation included unremarkable labs, negative troponin, and imaging studies including a head CT and CTA of the head and neck, which showed only mild to moderate chronic atherosclerotic changes without acute findings. Brain MRI revealed moderate scattered nonspecific periventricular white matter T2 hyperintensities consistent with chronic small vessel ischemic disease, but no acute intracranial process. Echocardiogram demonstrated normal ejection fraction. Neurology was consulted and felt the symptoms were most consistent with peripheral vertigo or vestibular migraine, with TIA considered less likely given the nonfocal neurological exam and lack of acute imaging findings. Patient's symptoms also lasted days making TIA unlikely. The patient was continued on aspirin and statin therapy per neurology recommendations. During his hospitalization, he remained hemodynamically stable, and his dizziness improved. On the day of discharge, he was ambulating without vertigo symptoms and his neurological exam remained nonfocal. He was instructed to follow up with his primary care provider, and if vertigo symptoms persist, to consider referral to ENT and vestibular therapy for further evaluation and management. He was prescribed meclizine PRN for dizziness. Patient was discharged home in stable condition. Strict return precautions discussed. Status at Discharge Functional status at discharge: independent ambulation Overall status at discharge: patient is back to baseline Time Spent with Patient Time attestation: Total time spent providing and/or coordinating discharge services: Time spent: Greater than 30 minutes Exam Narrative: General: NAD Eyes: EOMI ENT: neck supple Cardiovascular: Regular rate and rhythm Respiratory: Clear to auscultation, respirations even and unlabored on RA Gastrointestinal: Soft, non tender Genitourinary: no suprapubic tenderness Musculoskeletal: No edema Skin: warm, dry Neuro: Alert and oriented x4. Cranial nerves II-XII intact. Face symmetric. Speech clear. Strength 5/5 in BUEs/BLEs. No dysmetria BUE/BLEs. Psych: Mood appropriate DS: Data Data Completed and Pending Completed studies during hospitalization: ITS Impressions Chest X-Ray 08/18/25 10:06 Impression: No acute cardiopulmonary abnormality. Head CT 08/18/25 10:09 Impression: 1.No acute intracranial abnormality. Head/Neck CTA 08/18/25 18:14 IMPRESSION: 1. Vertebral arteries are patent in the neck on both sides. Mild atherosclerotic disease with calcified plaque at the carotid bulbs on both sides in the neck producing less than diameter disease. No hemodynamically significant lesions in the neck. 2. Mild to moderate calcific atherosclerotic disease of the intracranial portion of internal carotid arteries. No significant obstructive changes of the arteries of [place]. Dural venous sinuses are patent. Brain MRI 08/19/25 13:10 IMPRESSION: 1. Moderate scattered nonspecific periventricular predominant white matter T2 hyperintensity consistent with chronic small vessel ischemic disease. No other acute intracranial process or abnormally enhancing brain lesions. Discharge Plan Discharge Attending physician on discharge: Flavia Miller Consulting providers: Ethan Oro; Sohan Reddy; Soha Cornell Discharging Clinician: Soha Cornell Anticipated Discharge Date/Time: 08/20/25 12:15 Patient Disposition: Home Activity: as tolerated Diet: regular and heart healthy Discharge Instructions: Diagnosis/Reason for Admission: You were admitted for evaluation of dizziness. All of your imaging studies (CT head, CTA head and neck, MRI brain, and echocardiogram) were normal. Your symptoms are most likely due to peripheral vertigo, possibly related to a recent viral infection. A transient ischemic attack (TIA) is considered less likely. Neurology has evaluated you and made recommendations for your ongoing care. Medications: * Continue taking aspirin (ASA) and statin?as previously prescribed. * Utilize meclizine as needed for dizziness. Side effects include drowsiness * Take all other medications as directed. Activity: * Move slowly when changing positions (e.g., from lying to sitting or standing) to reduce dizziness and prevent falls. * Avoid driving, operating heavy machinery, or activities that require full alertness until your dizziness has resolved. * Use handrails and support as needed to prevent falls. Diet: * No specific dietary restrictions unless otherwise instructed. * Stay well hydrated. Follow-Up: * Primary Care Provider (PCP):?Schedule a follow-up appointment within 1 week. * If your dizziness persists or worsens, your PCP may refer you to an Ear, Nose, and Throat (ENT) specialist or recommend vestibular (balance) therapy. 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 * If prescribed, take anti-vertigo medications as directed. Summary: Your dizziness is most likely due to a benign ([id number]) cause related to a recent viral illness. All major tests for more serious causes were normal. Continue your current medications, follow up with your PCP in one week, and seek further evaluation if symptoms persist or worsen. If you have any questions or concerns before your follow-up, contact your healthcare provider. Patient Instructions: Antibiotic Form, Rivaroxaban (By mouth) Patient Language: Serbian Stand Alone Forms: General Discharge Information Follow-up/Referrals: Sohan Reddy MD [Physician, Neurology] Deidre,MD Doc [Primary Care Provider, [facility]] - Call for Appointment Referral Note: follow-up in 1 week Discharge Medications: New meclizine 12.5 mg Tablet 12.5 mg PO QID PRN (Reason: Dizziness) Qty: 20 0RF Continued pregabalin [Lyrica] 25 mg capsule 25 mg PO DAILY Patient Comments: patient takes PM medications at 0000 and AM at 1200 due to work schedule ezetimibe [Zetia] 10 mg tablet 10 mg PO DAILY albuterol sulfate 2.5 mg /3 mL (0.083 %) solution for nebulization 2.5 mg inhalation Q4H PRN (Reason: shortness of breath or wheezing) atorvastatin 80 mg tablet 80 mg PO QPM buprenorphine HCl [Belbuca] 75 mcg film 75 mcg BUCCAL Q12H Jardiance 10 mg tablet 10 mg PO DAILY furosemide 20 mg tablet 20 mg PO DAILY PRN (Reason: edema) ipratropium bromide 0.02 % solution 0.5 mg continuous nebulization Q4H PRN (Reason: shortness of breath or wheezing) metoprolol tartrate 25 mg tablet 25 mg PO Q12H rivaroxaban [Xarelto] 2.5 mg tablet 2.5 mg PO BID tizanidine 2 mg tablet 2 mg PO Q12H PRN (Reason: muscle spasticity) albuterol sulfate 90 mcg/actuation HFA aerosol inhaler 2 puff INHALATION Q4H PRN (Reason: shortness of breath or wheezing) acetaminophen 325 mg Tablet 650 mg PO Q4H PRN (Reason: Mild Pain (1-3) Or Fever) Qty: 60 0RF aspirin 81 mg Tablet,Delayed Release (Dr/Ec) 81 mg PO QAM Qty: 30 0RF lisinopril 10 mg tablet 5 mg PO DAILY albuterol 90 mcg/actuation Aerosol 90 mcg INHALATION PRN nitroglycerin 0.4 mg tablet, sublingual 0.4 mg sublingual Q5M PRN (Reason: chest pain) Qty: 10 0RF Rx Instructions: do not exceed 3 doses per episode cephalexin 500 mg capsule 500 mg PO Q8H 7 Days Qty: 21 0RF ondansetron 4 mg tablet,disintegrating 4 mg PO Q6H Qty: 16 0RF Date of admission: 08/18/25 13:27 Primary Care Provider: [facility] Admitting Provider: Braxton Doyle Attending physician on admission: Braxton Doyle Condition: Stable
--- NOTE | 2025-08-20 12:27 | PC.NURSE ---
Patient removed telemetry box around 1130 due to suspected discharge coming up.
--- NOTE | 2025-08-20 12:31 | P.PNNEUR_ITS ---
Subjective Date/time seen: 08/20/25 12:31 Interval history: Follow-up neurology note for Mr. Scott tate was admitted for the complaints of dizziness in addition to the balance difficulties and funny sensation on the right side of his head without any visual difficulties. Routine blood studies are completely normal, head and neck CTA without any stenosis Bishnu lesion but very mild minimal atherosclerotic disease consistent with small vessel chronic disease, routine lab completely normal suggested the possibility of TIA though less likely, migrainous phenomena, and advised accordingly if any unusual symptomatology happens they can return to the office for the follow-up but at th is stage there is no is strong signs of impending stroke. Possibility of vertiginous migraine is likely again needs to be followed by. Objective Data Vital Signs Vital Signs: Vital Signs - 24 hr 08/19/25 14:00 08/19/25 16:00 08/19/25 20:00 Temperature 37.0 C Pulse Rate 76 92 Respiratory Rate 12 Blood Pressure 106/58 L Pulse Oximetry 90 Oxygen Delivery Room Air 08/19/25 20:00 08/19/25 21:21 08/20/25 00:00 Temperature 36.6 C Pulse Rate 77 77 61 Respiratory Rate 20 Blood Pressure 104/73 Pulse Oximetry 95 Oxygen Delivery 08/20/25 04:00 08/20/25 05:42 08/20/25 08:00 Temperature 36.7 C Pulse Rate 66 62 74 Respiratory Rate 18 Blood Pressure 100/58 L Pulse Oximetry 96 Oxygen Delivery 08/20/25 08:22 Temperature Pulse Rate 66 Respiratory Rate Blood Pressure Pulse Oximetry Oxygen Delivery Intake/Output Intake/Output: Intake & Output 08/17/25 08/18/25 08/19/25 08/20/25 23:59 23:59 23:59 23:59 Intake Total 1480 820 444 Balance 1480 820 444 Meds/Results Medications: Active Medications Generic Name Dose Route Start Last Admin Trade Name Freq PRN Reason Stop Dose Admin Acetaminophen 650 mg 08/18/25 16:42 08/20/25 06:27 Acetaminophen 325 Mg Tablet PO 650 mg Q4H PRN Administration Mild Pain (1-3) or Fever Aspirin 81 mg 08/19/25 09:00 08/20/25 08:22 Aspirin 81 Mg Enteric Tablet PO 81 mg DAILY [place] Administration Atorvastatin Calcium 80 mg 08/18/25 21:00 08/19/25 20:27 Atorvastatin 40 Mg Tablet PO 80 mg HS [place] Administration Empagliflozin 10 mg 08/19/25 09:00 08/20/25 08:22 Empagliflozin 10 Mg Tablet PO 10 mg DAILY [place] Administration Furosemide 20 mg 08/18/25 16:42 Furosemide 20 Mg Tablet PO DAILY PRN Edema Ipratropium [place] 0.5 mg 08/18/25 16:42 Ipratropium Br 0.02% Inh Soln 0.5 Mg/2.5 Ml Vial INHALATION Q4H PRN Shortness Of Breath Or Wheezing Lisinopril 5 mg 08/18/25 21:00 08/19/25 20:27 Lisinopril 5 Mg Tablet PO 5 mg HS [place] Administration Meclizine HCl 12.5 mg 08/18/25 23:55 Meclizine Hcl 12.5 Mg Tablet PO QID PRN Dizziness Metoprolol Tartrate 25 mg 08/18/25 21:30 08/20/25 08:22 Metoprolol Tartrate 25 Mg Tablet PO 25 mg Q12HR [place] Administration Nitroglycerin 0.4 mg 08/18/25 16:42 Nitroglycerin Sl 0.4 Mg Tablet SUBLINGUAL Q5M PRN Chest Pain Home Med: Belbuca ( 1 each 08/18/25 21:00 08/20/25 08:23 Buprenorphine Hcl 75 XX 09/17/25 20:59 1 each Mcg Buccal Film, Q12HR [place] Administration Medicated) Ondansetron HCl 4 mg 08/18/25 18:00 08/20/25 11:51 Ondansetron Hcl Odt 4 Mg Tablet PO Not Given Q6H [place] Pregabalin 25 mg 08/19/25 21:00 08/19/25 20:26 Pregabalin (*Crx) 25 Mg Capsule PO 25 mg HS [place] Administration Rivaroxaban 2.5 mg 08/18/25 21:30 08/20/25 08:22 Rivaroxaban 2.5 Mg Tablet PO 2.5 mg Q12HR [place] Administration Tizanidine HCl 2 mg 08/18/25 16:42 08/19/25 20:26 Tizanidine Hcl 2 Mg Tablet PO 2 mg Q12H PRN Administration Muscle Spasticity Radiology Results: ITS Impressions Chest X-Ray 08/18/25 10:06 Impression: No acute cardiopulmonary abnormality. Head CT 08/18/25 10:09 Impression: 1.No acute intracranial abnormality. Head/Neck CTA 08/18/25 18:14 IMPRESSION: 1. Vertebral arteries are patent in the neck on both sides. Mild atherosclerotic disease with calcified plaque at the carotid bulbs on both sides in the neck producing less than diameter disease. No hemodynamically significant lesions in the neck. 2. Mild to moderate calcific atherosclerotic disease of the intracranial portion of internal carotid arteries. No significant obstructive changes of the arteries of [place]. Dural venous sinuses are patent. Brain MRI 08/19/25 13:10 IMPRESSION: 1. Moderate scattered nonspecific periventricular predominant white matter T2 hyperintensity consistent with chronic small vessel ischemic disease. No other acute intracranial process or abnormally enhancing brain lesions.
== END 2025-08-20 12:55 | disposition home or self-care (01) ==
LOC: ANHED 09:58 → ANH3MEDSUR 14:35
PROVIDERS: Nurse Practitioner Adult Health; Admitting Provider Internal Medicine; Emergency Provider Physician Assistant; PCP Family Medicine; Visit Provider Internal Medicine
DX: R42 Dizziness and giddiness (principal); E78.5 Hyperlipidemia, unspecified; I25.10 Atherosclerotic heart disease of native coronary artery without angina pectoris; I10 Essential (primary) hypertension; J44.9 Chronic obstructive pulmonary disease, unspecified; Z87.891 Personal history of nicotine dependence; Z79.899 Other long term (current) drug therapy; G89.29 Other chronic pain; M54.50 Low back pain, unspecified; Z79.01 Long term (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 of anticoagulants; Z79.82 Long term (current) use of aspirin; Z79.84 Long term (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 of oral hypoglycemic drugs
CPT/HCPCS: 36415; 70450; 70496; 70498; 70553; 71045; 80048; 80053; 80061; 80307; 81003; 83036; 84484; 85025; 85610; 85730; 93005; 96361; 96374; 96375; 99285; A9270; A9577; C8929; G0378; J2405; J7040; Q9957; Q9967